=== PATIENT | male | born 1965 | race Caucasian/White ===

== ENCOUNTER 2018-01-08 04:47 | Emergency (ER) | payer OTHER, SELFPAY ==
[2018-01-08 04:48] VITALS: BP 155/74; PULSE 74; RESP 18; TEMP 37.2; O2SAT 97; BMI 42.0
--- NOTE | 2018-01-08 05:07 | CT_ITS ---
STUDY: CT ABDOMEN AND PELVIS WITHOUT CONTRAST REASON FOR EXAM: Male, 52 years old. Left flank pain for several days. RADIATION DOSAGE (If Supplied By Facility): CTDIvol = ( 20.40 ) mGy, DLP = ( 1213.23 ) mGycm TECHNIQUE: Transaxial images were obtained from the dome of the diaphragm to the symphysis pubis without oral contrast, and without intravenous contrast. Sagittal and coronal images were reconstructed. Individualized dose optimization techniques were used for this CT. COMPARISON: None. FINDINGS: The visualized lung bases are unremarkable. The heart is not enlarged. Coronary artery calcifications. There is decreased attenuation of the liver consistent with steatosis. Normal gallbladder and extrahepatic biliary system. Normal spleen. Normal pancreas. Normal bilateral adrenal glands. 4.0 cm exophytic simple cyst inferior pole right kidney. Mild left hydronephrosis with mild perinephric stranding secondary to a 3 mm x 2 mm ureterovesicular junction stone. Normal visualized stomach. Normal small intestine. Normal colon. The appendix is well visualized and appears normal. Normal abdominal aorta. Normal inferior vena cava. Normal retroperitoneum. Normal urinary bladder. Normal abdominal wall. Mild anterior wedging at multiple levels in the lower thoracic spine which is old. A fracture line is not identified. Multilevel degenerative changes of the lower thoracic and upper lumbar spine. 1.1 cm sclerotic density right iliac wing probably representing an incidental bone island. CT/Abdomen/Pelvis without Cont IMPRESSION: Mild left hydronephrosis secondary to a 3 mm ureterovesicular junction stone. Simple cyst right kidney. Coronary artery calcifications. Nonemergent osseous findings as above. Electronically Signed: Yamil Patel MD at 6:05 EDT , Service support ,
--- NOTE | 2018-01-08 05:18 | ED.DCSUM_ITS ---
- ER Visit Summary Date of Service: 01/08/18 Chief Complaint: [] Left flank and back pain History of Present Illness: The patient is a 52 M complaining of left flank pain for last 3 days gradual onset intermittent but worse throughout the night last night. He feels like a punching sensation. It does not hurt to touch. No history of kidney stones. He has been using Tylenol and Aleve. Is not movement related. No blood in his urine. Physical Examination: Vital signs reviewed General: Well-nourished well-developed Head: Normocephalic atraumatic Eyes: Pupils equal round and reactive to light extraocular movements intact ENT: TMs clear no hemotympanum no trauma Neck: Nontender full range of motion Cardiovascular: Regular rate rhythm no murmurs normal S1-S2 Respiratory: No distress clear to auscultation bilaterally chest nontender Abdomen: Soft nontender nondistended normal bowel sounds no masses Back: Nontender no CVA tenderness Extremities: Nontender active range of motion ?4 extremities no trauma Skin: Normal color no trauma Neuro alert oriented cranial nerves II through XII intact normal strength sensation reflexes Test Results: [] Emergency Department Course and Treatment: [] Patient given IV fluids and Toradol. Lab work and CAT scan of the flank obtained. Unremarkable. There is a 3 mm left UVJ kidney stone with mild hydronephrosis. Patient will be discharged with Percocet will use ibuprofen will follow-up with urology. Treatment Plan: [] Disposition: [] Impression: [] Kidney stone with mild hydronephrosis This note was generated with [employer] dictation software. It may contain incorrect words, spelling, and punctuation that were not noted in review of the chart prior to signing ED Disposition - Plan for ED Patient: Chief Complaint: Other, Pain/Inj Referrals: Celia Robbins MD [Primary Care Provider] -
[2018-01-08] MEDS: 0.9% Normal Saline 1,000 ML 250 ML IV (05:24)
[2018-01-08] MEDS: Ketorolac 30 MG/ML Syringe IV (05:24)
[2018-01-08 05:33] LABS: Bacteria 0 SEEN /hpf (None Seen); Squamous Epithelial Cells - UA 0 SEEN /hpf (0-5)
[2018-01-08 05:35] LABS: Color, Urine Yellow (Yellow); Glucose, Dipstick Normal (Normal); Ketone-Dipstick Negative (Negative); Leukocyte Esterase-Dipstick 25 /ul (Negative); Nitrite-Dipstick Negative (Negative); Occult Blood-Urine 250 /ul (Negative); Protein-Dipstick 30 mg/dl (Negative); Specific Gravity, Urine 1.025 (1.002-1.030); Urine Clarity Sl. Cloudy (Clear); Urine Urobilinogen 1 mg/dl (Normal)
[2018-01-08 05:35] LABS: Absolute Lymphocyte Count 1.62 X10^3/ul (0.83-4.51); Absolute Neutrophil Count 6.6 X10^3/uL (2.0-7.7); Basophil# 0.02 X10^3/uL; Basophil% 0.2 % (0-1); Eosinophil# 0.28 X10^3/uL; Hematocrit 41.6 % (40-54); Lymphocyte # 1.62 X10^3/ul (4.0); Lymphocyte % 17.2 % (19-41); Mean Corp Hgb Conc 36.1 g/gl (32-36); Mean Corpuscular Hgb 33.4 pg (27.0-32.0); Mean Corpuscular Volume 92.7 fL (80-94); Mean Platelet Vol. 10.2 fl (6.2-12.0); Monocyte# 0.87 X10^3/uL; Monocyte% 9.2 % (0-10); Neutrophil # 6.63 X10^3/uL (2.7-7.7); Neutrophil % 70.3 % (47-70); POSITIVE COUNT NO; POSITIVE DIFFERENTIAL NO; POSITIVE MORPHOLOGY NO; Platelet Count 180 K/mm3 (150-450); RBC Distribution Width CV 12.6 % (11.6-14.6); RBC Distribution Width SD 41.7 fl (35.1-43.9); Red Blood Count 4.49 M/mm3 (4.6-6.2); White Blood Count 9.4 K/mm3 (4.4-11.0)
[2018-01-08 05:43] LABS: Urine Bilirubin Dipstick 1 mg/dL (Negative)
[2018-01-08 05:44] LABS: Mucous, Urine 2+ /hpf (<or=2+); Red Blood Cells-Urine 0-5 SEEN /hpf (0-5); White Blood Cells 0-5 SEEN /hpf (0-5)
[2018-01-08 06:00] LABS: Anion Gap 8 (5-15); BUN 25 mg/dL (7-18); BUN/Creat Ratio 29.3 RATIO (10-20); Calcium,Total 8.8 mg/dL (8.5-10.1); Chloride 108 mmol/L (98-107); Creatinine, Serum 0.85 mg/dL (0.70-1.30); EST Glomerular Filtration Rate 100 mL/min (>60); Est Glom Filt Rate - Afr Amer 121 mL/min (>60); Estimated Creatinine Clearance 101.66 ml/min; Glucose 103 mg/dL (74-106); Potassium 3.7 mmol/L (3.5-5.1); Sodium Level 141 mmol/L (136-145)
--- NOTE | 2018-01-08 06:15 | ED.DEP ---
ED Disposition - Plan for ED Patient: Disposition: Home or Assisted Living Chief Complaint: Other, Pain/Inj Instructions: Understanding Kidney Stones Prescriptions: Oxycodone HCl/Acetaminophen [Percocet 5/325] 1 tab PO Q6H PRN PRN 3 Days #12 tab PRN Reason: Pain Referrals: Celia Robbins MD [Primary Care Provider] - Huang Rosa MD [STAFF PHYSICIAN] -
[2018-01-08 06:22] VITALS: BP 147/79; PULSE 79; RESP 17; O2SAT 95
--- NOTE | 2018-01-08 06:22 | ED.RN ---
IV DC'ED, CATHETER INTACT, SMALL GAUZE DRESSING PLACED. DISCHARGE INSTRUCTIONS GIVEN TO AND REVIEWED WITH PATIENT, PATIENT DENIES QUESTIONS OR CONCERNS AND VOICES UNDERSTANDING OF DISCHARGE INSTRUCTIONS. PT AMBULATES OUT OF ROOM WITHOUT DIFFICULTY.
== END 2018-01-08 06:23 | disposition home or self-care (01) ==
PROVIDERS: Emergency Provider Emergency Medicine; Family Provider Internal Medicine; PCP Internal Medicine
DX: N13.2 Hydronephrosis with renal and ureteral calculous obstruction (principal); E66.9 Obesity, unspecified; I10 Essential (primary) hypertension; E78.00 Pure hypercholesterolemia, unspecified; Z79.899 Other long term (current) drug therapy
CPT/HCPCS: 74176; 80048; 81001; 85025; 96361; 96374; 99283; J7030; A4216

== ENCOUNTER → 2019-06-19 | Outpatient (CLI) | payer OTHER, SELFPAY ==
--- NOTE | 2019-06-19 | FLU_PTH ---
PATIENT: ETHAN TURNER LOC: [facility] U#:[id number] AGE/SX: 54/M ROOM: RE06/19/[address]: Dr. Dinora Johnston MD : 1965 BED: DIS: 06/19/2019 SPEC #: [id number] RECD: 06/19/19 12:47 STATUS: BECKA REHolger #: [id number] BAY: 06/19/19 00:[address]: Dinora Johnston DEPT: CYTOLOGY RECD BY: Shaheed Castelan ENTERED: 06/19/19 12:48 SP TYPE: Fluid OTHR DR: Dr. Celia Robbins MD Tissues: A - Thyroid gland, NOS B - Thyroid gland, NOS Procedures: Special Stain Group II Surgery Specimen Level IV Cytospin Fluid HEADER OPERATION: Ultrasound-guided fine needle aspiration left thyroid PRE-OP DIAGNOSIS: Thyroid nodules TISSUE SUBMITTED: A - Left thyroid FNA for cytology, B - Left thyroid FNA 8 slides DIAGNOSIS CYTOLOGY A. Fine needle aspiration, left thyroid nodule (cytospin and cell block): Negative for malignant cells. Consistent with benign colloid/follicular nodule. B. Fine needle aspiration, left thyroid nodule (smears): Adequate for evaluation. Negative, consistent with benign colloid/follicular nodule. AM:juanis 06/22/19 CYTOLOGY STUDY Slides are reviewed. CYTOLOGY GROSS A - Received is 20 ml of red cloudy fluid labeled with the patient's name and and designated per the requisition as left thyroid. Submitted for cytology preparation including cell block. B - Received are eight smears labeled with the patient's name and designated per the requisition as left thyroid. Submitted for staining. / juanis 06/19/19 TC:5 CPT: 01347, 60464, 08270
== END | disposition home or self-care (01) ==
LOC: LABSPEC 12:37
PROVIDERS: Family Provider Internal Medicine; PCP Internal Medicine; Referring Provider Surgery; Visit Provider Surgery
DX: E04.1 Nontoxic single thyroid nodule (principal)
CPT/HCPCS: 88108; 88305; 88313

== ENCOUNTER 2019-12-13 16:06 | Emergency (ER) | payer OTHER, SELFPAY ==
[2019-12-13 16:07] VITALS: BP 158/108; PULSE 97; RESP 16; TEMP 36.8; O2SAT 94; BMI 43.1
--- NOTE | 2019-12-13 16:14 | ED.VIS.GEN ---
History of Present Illness Chief Complaint: Cough Informant: Patient Onset: Days Context: Gradual Onset Current Severity: Mild Maximum Severity: Mild Narrative: Patient presents with cough and subjective fevers over the past 5 or 6 days. He called off work today and [facility] so he could get a work note. They were concerned there about possible pneumonia and sent him to the ER for a chest x-ray. Patient states they also told him there that he had a left ear infection. Patient states overall he does not feel too bad. He did get the flu shot this year. - Past Medical History (1) Hypertension Status: Chronic (2) High cholesterol Status: Chronic Past Medical History - Allergies and Home Meds Allergies/Adverse Reactions: Allergies No Known Allergies Allergy (Verified 12/13/19 16:07) Primary Care Physician: Celia Robbins MD [Primary Care Provider] - Prior records reviewed: Yes Smoking Status: Former smoker Review of Systems General: Reports: Fever, Subjective Eyes: Denies: Visual changes - bilaterally ENT: Reports: - - Congestion Cardiovascular: Denies: Chest pain Respiratory: Reports: Cough. Denies: Dyspnea Gastrointestinal: Denies: Abdominal pain, Nausea, Vomiting, Diarrhea Genitourinary: Denies: Dysuria Musculoskeletal: Denies: Myalgias Skin: Denies: Rash Neurological: Denies: Headache Allergy: Denies: Uticaria Physical Exam Vital Signs/Narrative: Vital Signs Temp Pulse Resp BP Pulse Ox 12/13/19 16:07 98.2 F 97 16 158/108 H 94 Inital Vital Signs reviewed: Yes General: Well nourished, Well developed Head: Normocephalic ENT: Moist mucous membranes, TM's clear - Left TM has some mild clear fluid. I do not see evidence of ear infection., - - Posterior pharyngeal drainage. Uvula midline. Neck: Supple Cardiovascular: Regular rate, Regular rhythm Respiratory: No distress, CTA bilaterally Abdomen: Soft, Nontender Extremities: Nontender Skin: Normal color Neurological: Alert, Oriented x3 Psychological: Normal affect Diagnostic/Tx/Re-eval Impressions Chest X-Ray 12/13/19 16:30 IMPRESSION: No acute cardiopulmonary findings Electronically Signed: Supa Gates, at 17:25 EST Tel , Service support , 12/13/19 16:30 Chest PA and Lateral [RAD] Stat - Medical Decision Making Patient symptoms are consistent with viral upper respiratory infection. He may have influenza, however is outside the window for treatment and testing is not performed at this time. Clinically patient states he is feeling better. He will be given a work note for today. He will continue supportive care. ED Disposition - Plan for ED Patient: Disposition: Home or Assisted Living Diagnosis: Viral URI Instructions: BRONCHITIS, No Antibiotic (Adult) Referrals: Celia Robbins MD [Primary Care Provider] - 1 Week if not improving
--- NOTE | 2019-12-13 16:30 | RAD_ITS ---
STUDY: X-RAY CHEST REASON FOR EXAM: Male, 54 years old. Chest pain TECHNIQUE: PA and lateral views of the chest. COMPARISON: None. FINDINGS: Cardiac silhouette unremarkable. Pulmonary vascularity unremarkable. Aorta unremarkable. No focal airspace opacities. No pleural effusions. Upper abdomen unremarkable. Osseous structures intact. No pneumothorax. RAD/Chest PA and Lateral IMPRESSION: No acute cardiopulmonary findings Electronically Signed: Supa Gates, at 17:25 EST Tel , Service support ,
[2019-12-13 17:43] VITALS: BP 144/88; PULSE 89; RESP 18; O2SAT 96
== END 2019-12-13 17:44 | disposition home or self-care (01) ==
PROVIDERS: Emergency Provider Emergency Medicine; PCP Internal Medicine
DX: J06.9 Acute upper respiratory infection, unspecified (principal); I10 Essential (primary) hypertension; Z87.891 Personal history of nicotine dependence
CPT/HCPCS: 71046; 99282

== ENCOUNTER → 2020-09-19 | Outpatient (CLI) | payer OTHER, SELFPAY ==
--- NOTE | 2020-09-19 | FLU_PTH ---
PATIENT: ETHAN TURNER LOC: [facility] U#:[id number] AGE/SX: 55/M ROOM: RE09/19/[address]: Dr. Dinora Johnston MD : 1965 BED: DIS: 09/19/2020 SPEC #: [id number] RECD: 09/19/20 17:04 STATUS: BECKA REHolger #: [id number] BAY: 09/19/20 00:[address]: Dinora Johnston DEPT: CYTOLOGY RECD BY: Carly Pedro ENTERED: 09/20/20 08:20 SP TYPE: Fluid OTHR DR: Dr. Celia Robbins MD Tissues: A - Thyroid gland, NOS B - Thyroid gland, NOS Procedures: Special Stain Group II Surgery Specimen Level IV Cytospin Fluid HEADER OPERATION: Ultrasound-guided fine needle aspiration left thyroid PRE-OP DIAGNOSIS: Thyroid nodules TISSUE SUBMITTED: A - Left thyroid for cytology, B - Left thyroid slides x6 DIAGNOSIS CYTOLOGY A. Fine needle aspiration, left thyroid nodule (cytospin and cell block): Adequate for evaluation. Negative, consistent with benign follicular/colloid nodule. B. Fine needle aspiration, left thyroid nodule (smears): Adequate for evaluation. Negative, consistent with benign colloid nodule with cystic change. AM:juanis 09/21/20 CYTOLOGY STUDY Slides are reviewed. CYTOLOGY GROSS A - Received is 30 ml of castro, cloudy fluid labeled with the patient's name and and designated per the requisition as left thyroid. Submitted for cytology preparation including cell block. B - Received are six smears labeled with the patient's name and designated per the requisition as left thyroid. Submitted for staining. / juanis 09/20/20 TC:5 CPT: 48656, 42589, 86069
== END | disposition home or self-care (01) ==
PROVIDERS: PCP Internal Medicine; Visit Provider Surgery
DX: E04.2 Nontoxic multinodular goiter (principal)
CPT/HCPCS: 88108; 88305; 88313

== ENCOUNTER → 2024-02-14 | Outpatient (CLI) | payer BC, SELFPAY ==
[2024-02-14] MEDS: Lidocaine 2% (5ml sdv) 5 ML VIAL.MPF (07:56)
[2024-02-14] MEDS: Triamcinolone Acetonide 40 MG/ML Vial 80 MG OPERA.SITE (07:58)
[2024-02-14] MEDS: Lidocaine 1% (5 ml sdv) 5 ML Vial 3 ML OPERA.SITE (07:58)
--- NOTE | 2024-02-14 08:17 | PCM.OP.PRO ---
Procedure Report Date of Procedure: 02/14/24 Assessment & Plan Assessment/Plan (1) Osteoarthritis of right hip: QUALIFIERS: Osteoarthritis type: unspecified Qualified Code(s): M16.11 - Unilateral primary osteoarthritis, right hip PLAN: PROCEDURE: Fluoroscopic Guided right hip injection ORDERING PROVIDER: Gilda Rutherford PA-C INDICATION: Male, 58 years old. Right hip osteoarthritis. FLUOROSCOPY TIME (if supplied): 0 minutes/50 seconds. 23.19 mGy PROVIDER: MIRI Luke PROCEDURE: CONSENT: The risks, benefits, and alternatives to the procedure were explained to the patient. The specific risks of bleeding, infection, and neurovascular injury were detailed and accepted. Witnessed informed consent was obtained. TECHNIQUE: The right hip access site was prepped and draped in sterile fashion. 2% Lidocaine was administered subcutaneously for local anesthesia. A 22-gauge spinal needle was positioned under radiographic fluoroscopic localization. Approximately 2 cc of Isovue 300 instilled for localization purposes. Medication was then injected. MEDICATIONS: 80 mg of Kenalog and 3 ml of 1% lidocaine. The spinal needle was removed, and a dressing was applied. The patient tolerated the procedure well without any immediate complications. IMPRESSION: Successful fluoroscopic guided right hip injection. Procedures Radiology Radiology Xray Procedures: Inj Asp major Joint - Hip, Knee
== END | disposition home or self-care (01) ==
PROVIDERS: PCP Internal Medicine; Referring Provider Physician Assistant; Visit Provider Physician Assistant
DX: M16.11 Unilateral primary osteoarthritis, right hip (principal)
CPT/HCPCS: 20610; 77002

== ENCOUNTER → 2024-06-01 | Outpatient (CLI) | payer BC, SELFPAY ==
--- NOTE | 2024-06-01 10:05 | RAD_ITS ---
STUDY: X-RAY - PELVIS REASON FOR EXAM: Male, 59 years old. Pain. TECHNIQUE: One view of the pelvis was obtained. COMPARISON: None. FINDINGS: There is a non-specific bowel gas pattern. Soft tissue calcification projected proximal to the right greater trochanter. Osteopenia. Normal bilateral iliac wings, sacroiliac joints and visualized sacrum. Normal visualized bilateral superior and inferior pubic rami. Mild arthrosis of the symphysis pubis. Normal ischial tuberosities. Severe arthrosis of both hips, left greater than right with complete loss of articular cartilage superiorly with subchondral cyst formation and sclerosis. RAD/Pelvis 1 or 2 Views IMPRESSION: Osteopenia with severe osteoarthritic changes of both hips, left slightly greater than right, as outlined above. Soft tissue calcification projected proximal to the greater trochanter on the right. Electronically Signed: King Dominguez MD at 10:17 EDT ,
[2024-06-01 12:34] LABS: Absolute Lymphocyte Count 1.69 X10^3/uL (0.83-4.51); Absolute Neutrophil Count 5.4 X10^3/uL (2.0-7.7); Basophil# 0.05 X10^3/uL; Basophil% 0.6 % (0-1); Eosinophil# 0.09 X10^3/uL; Eosinophils% 1.1 % (0-5); Hematocrit 44.7 % (40-54); Hemoglobin 15.3 g/dL (13.0-16.5); Lymphocyte # 1.69 X10^3/ul (0.83-4.51); Lymphocyte % 21.5 % (19-41); Mean Corp Hgb Conc 34.2 g/dL (32-36); Mean Corpuscular Hgb 32.9 pg (27.0-32.0); Mean Corpuscular Volume 96.1 fL (80-94); Mean Platelet Vol. 10.6 fl (6.2-12.0); Monocyte% 7.6 % (0-10); NRBC Flagged by Analyzer 0 % (0-5); Neutrophil # 5.41 X10^3/uL (2.7-7.7); Neutrophil % 68.8 % (47-70); Platelet Count 222 K/mm3 (150-450); RBC Distribution Width CV 12.4 % (11.6-14.6); Red Blood Count 4.65 M/mm3 (4.6-6.2); White Blood Count 7.9 K/mm3 (4.4-11.0)
[2024-06-01 13:40] LABS: ALB/GLOB Ratio 1.2 RATIO (0.9-2.4); AST(SGOT) 13 U/L (15-37); Alanine Aminotransfer ALT/SGPT 26 U/L (16-61); Albumin, Serum 4.1 g/dL (3.2-5.0); Alkaline Phosphatase 69 U/L (45-117); Anion Gap 9 (5-15); BUN 29 mg/dL (7-18); Calcium,Total 9.8 mg/dL (8.5-10.1); Chloride 111 mmol/L (98-107); EST Glomerular Filtration Rate 104 mL/min (>60); Est Glom Filt Rate - Afr Amer 126 mL/min (>60); Globulin 3.5 g/dL (2.2-4.2); Glucose 99 mg/dL (74-106); Hepatitis B Surface Antibody Non-Reactive; Hepatitis B Surface Antigen Non-Reactive (Nonreactive); Hepatitis C Antibody Non-Reactive (Nonreactive); Potassium 4.2 mmol/L (3.5-5.1); Protein, Total 7.6 g/dL (6.4-8.2); Rheumatoid Factor < 10.0 IU/mL (<15); Sodium Level 141 mmol/L (136-145)
[2024-06-02 13:08] LABS: ANTINUCLEAR ANTIBODIES DIRECT Negative (Negative); CCP IgG Antibodies 3 units (0-19)
== END | disposition home or self-care (01) ==
LOC: MTLAB 10:03
PROVIDERS: PCP Internal Medicine; Referring Provider Internal Medicine Rheumatology; Visit Provider Internal Medicine Rheumatology
DX: M06.4 Inflammatory polyarthropathy (principal); M17.0 Bilateral primary osteoarthritis of knee; M16.0 Bilateral primary osteoarthritis of hip
CPT/HCPCS: 36415; 72170; 80053; 85025; 86038; 86200; 86431; 86706; 86803; 87340

== ENCOUNTER → 2024-08-07 | Outpatient (CLI) | payer BC, SELFPAY ==
[2024-08-07 12:27] LABS: Absolute Lymphocyte Count 1.21 X10^3/uL (0.83-4.51); Basophil# 0.03 X10^3/uL; Basophil% 0.3 % (0-1); Eosinophil# 0.02 X10^3/uL; Eosinophils% 0.2 % (0-5); Hematocrit 43.5 % (40-54); Hemoglobin 15.4 g/dL (13.0-16.5); Lymphocyte # 1.21 X10^3/ul (0.83-4.51); Lymphocyte % 13.9 % (19-41); Mean Corp Hgb Conc 35.4 g/dL (32-36); Monocyte# 0.41 X10^3/uL; Monocyte% 4.7 % (0-10); NRBC Flagged by Analyzer 0 % (0-5); Neutrophil # 6.98 X10^3/uL (2.7-7.7); Neutrophil % 80.3 % (47-70); Platelet Count 219 K/mm3 (150-450); RBC Distribution Width CV 13.5 % (11.6-14.6); RBC Distribution Width SD 46.5 fl (35.1-43.9); Red Blood Count 4.53 M/mm3 (4.6-6.2); White Blood Count 8.7 K/mm3 (4.4-11.0)
[2024-08-07 13:25] LABS: ALB/GLOB Ratio 1.2 RATIO (0.9-2.4); AST(SGOT) 9 U/L (15-37); Alanine Aminotransfer ALT/SGPT 23 U/L (16-61); Alkaline Phosphatase 66 U/L (45-117); Anion Gap 8 (5-15); BUN 28 mg/dL (7-18); BUN/Creat Ratio 31.1 RATIO (10-20); Calcium,Total 9.2 mg/dL (8.5-10.1); Chloride 108 mmol/L (98-107); EST Glomerular Filtration Rate 92 mL/min (>60); Est Glom Filt Rate - Afr Amer 111 mL/min (>60); Globulin 3.2 g/dL (2.2-4.2); Glucose 111 mg/dL (74-106); Protein, Total 7.2 g/dL (6.4-8.2); Sodium Level 138 mmol/L (136-145)
== END | disposition home or self-care (01) ==
LOC: MTLAB 09:56
PROVIDERS: PCP Internal Medicine; Referring Provider Internal Medicine Rheumatology; Visit Provider Internal Medicine Rheumatology
DX: M06.4 Inflammatory polyarthropathy (principal); M17.0 Bilateral primary osteoarthritis of knee; M16.0 Bilateral primary osteoarthritis of hip; Z79.899 Other long term (current) drug therapy
CPT/HCPCS: 36415; 80053; 85025

== ENCOUNTER → 2024-09-15 | Outpatient (CLI) | payer BC, SELFPAY ==
[2024-09-15 18:02] LABS: Absolute Lymphocyte Count 2.79 X10^3/uL (0.83-4.51); Absolute Neutrophil Count 5.6 X10^3/uL (2.0-7.7); Basophil# 0.06 X10^3/uL; Basophil% 0.6 % (0-1); Eosinophil# 0.07 X10^3/uL; Eosinophils% 0.8 % (0-5); Hematocrit 42.8 % (40-54); Hemoglobin 14.7 g/dL (13.0-16.5); Lymphocyte # 2.79 X10^3/ul (0.83-4.51); Lymphocyte % 30.1 % (19-41); Mean Corp Hgb Conc 34.3 g/dL (32-36); Mean Corpuscular Hgb 33.6 pg (27.0-32.0); Mean Corpuscular Volume 97.7 fL (80-94); Mean Platelet Vol. 9.8 fl (6.2-12.0); Monocyte# 0.71 X10^3/uL; Monocyte% 7.7 % (0-10); NRBC Flagged by Analyzer 0 % (0-5); Neutrophil # 5.61 X10^3/uL (2.7-7.7); Neutrophil % 60.5 % (47-70); Platelet Count 243 K/mm3 (150-450); RBC Distribution Width CV 13.6 % (11.6-14.6); RBC Distribution Width SD 49.2 fl (35.1-43.9); Red Blood Count 4.38 M/mm3 (4.6-6.2); White Blood Count 9.3 K/mm3 (4.4-11.0)
[2024-09-15 18:22] LABS: ALB/GLOB Ratio 1.2 RATIO (0.9-2.4); AST(SGOT) 12 U/L (15-37); Alanine Aminotransfer ALT/SGPT 22 U/L (16-61); Alkaline Phosphatase 70 U/L (45-117); Anion Gap 9 (5-15); BUN 32 mg/dL (7-18); Calcium,Total 9.4 mg/dL (8.5-10.1); Chloride 105 mmol/L (98-107); Creatinine, Serum 0.73 mg/dL (0.70-1.30); EST Glomerular Filtration Rate 117 mL/min (>60); Est Glom Filt Rate - Afr Amer 142 mL/min (>60); Globulin 3.3 g/dL (2.2-4.2); Glucose 89 mg/dL (74-106); Potassium 3.8 mmol/L (3.5-5.1); Protein, Total 7.3 g/dL (6.4-8.2); Sodium Level 137 mmol/L (136-145)
== END | disposition home or self-care (01) ==
LOC: MTLAB 16:02
PROVIDERS: PCP Internal Medicine; Referring Provider Internal Medicine Rheumatology; Visit Provider Internal Medicine Rheumatology
DX: M06.4 Inflammatory polyarthropathy (principal); Z79.899 Other long term (current) drug therapy
CPT/HCPCS: 36415; 80053; 85025

== ENCOUNTER → 2024-11-11 | Outpatient (CLI) | payer BC, SELFPAY ==
[2024-11-11 18:05] LABS: Absolute Lymphocyte Count 2.69 X10^3/uL (0.83-4.51); Absolute Neutrophil Count 5.2 X10^3/uL (2.0-7.7); Basophil# 0.03 X10^3/uL; Basophil% 0.3 % (0-1); Eosinophil# 0.06 X10^3/uL; Eosinophils% 0.7 % (0-5); Hematocrit 45.7 % (40-54); Hemoglobin 15.5 g/dL (13.0-16.5); Lymphocyte # 2.69 X10^3/ul (0.83-4.51); Lymphocyte % 31.2 % (19-41); Mean Corp Hgb Conc 33.9 g/dL (32-36); Mean Corpuscular Hgb 33.8 pg (27.0-32.0); Mean Corpuscular Volume 99.6 fL (80-94); Mean Platelet Vol. 10.3 fl (6.2-12.0); Monocyte# 0.63 X10^3/uL; Monocyte% 7.3 % (0-10); NRBC Flagged by Analyzer 0 % (0-5); Neutrophil # 5.18 X10^3/uL (2.7-7.7); Neutrophil % 60.3 % (47-70); Platelet Count 249 K/mm3 (150-450); RBC Distribution Width CV 12.5 % (11.6-14.6); RBC Distribution Width SD 46.2 fl (35.1-43.9); Red Blood Count 4.59 M/mm3 (4.6-6.2); White Blood Count 8.6 K/mm3 (4.4-11.0)
[2024-11-11 19:57] LABS: ALB/GLOB Ratio 1.3 RATIO (0.9-2.4); AST(SGOT) 12 U/L (15-37); Alanine Aminotransfer ALT/SGPT 29 U/L (16-61); Albumin, Serum 4.3 g/dL (3.2-5.0); Alkaline Phosphatase 69 U/L (45-117); Anion Gap 9 (5-15); BUN 28 mg/dL (7-18); BUN/Creat Ratio 33.2 RATIO (10-20); Calcium,Total 9.5 mg/dL (8.5-10.1); Chloride 104 mmol/L (98-107); Creatinine, Serum 0.84 mg/dL (0.70-1.30); EST Glomerular Filtration Rate 99 mL/min (>60); Est Glom Filt Rate - Afr Amer 120 mL/min (>60); Globulin 3.3 g/dL (2.2-4.2); Glucose 85 mg/dL (74-106); Protein, Total 7.6 g/dL (6.4-8.2); Sodium Level 137 mmol/L (136-145)
== END | disposition home or self-care (01) ==
LOC: MTLAB 16:03
PROVIDERS: PCP Internal Medicine; Referring Provider Internal Medicine Rheumatology; Visit Provider Internal Medicine Rheumatology
DX: M06.4 Inflammatory polyarthropathy (principal); M17.0 Bilateral primary osteoarthritis of knee; M16.0 Bilateral primary osteoarthritis of hip; Z79.899 Other long term (current) drug therapy
CPT/HCPCS: 36415; 80053; 85025

== ENCOUNTER → 2024-12-11 | Outpatient (CLI) | payer BC, SELFPAY ==
--- NOTE | 2024-12-11 16:26 | CT_ITS ---
PROCEDURE: EXTREMITY LOWER WITHOUT CONTRA REASON FOR EXAM: Templating for left total hip replacement. Sam protocol TECHNIQUE: Multiple axial tomographic images of the hips and both knees were obtained without intravenous contrast administration. CONTRAST: None COMPARISON: None. FINDINGS: Bones: No evidence of fracture. Joints: Imaging of both hip joints was obtained. There is a marked degree of joint space narrowing of the left hip joint with subchondral cystic changes involving the acetabulum and femoral head. Findings may represent avascular necrosis. There is also evidence of a marked degree of joint space narrowing of the right hip joint although no significant evidence of avascular necrosis. Marked degree of joint space narrowing involving both medial compartments of the knee joint. Osteoarthritis of the patellofemoral joint. Soft Tissues: Unremarkable. CT/Extremity Lower without Contra IMPRESSION: Marked degree of joint space narrowing involving both hip joints worse on the l eft side with findings suggestive of avascular necrosis. Marked degree of joint space narrowing involving the medial compartments of bot h knee joints. One or more dose reduction techniques were used (e.g., Automated exposure contr ol, adjustment of the mA and/or kV according to patient size, use of iterative reconstruction technique). Reading Location: [facility]
== END | disposition home or self-care (01) ==
LOC: CT 16:24
PROVIDERS: PCP Internal Medicine; Referring Provider Orthopaedic Surgery; Visit Provider Orthopaedic Surgery
DX: M16.12 Unilateral primary osteoarthritis, left hip (principal)
CPT/HCPCS: 73700

== ENCOUNTER 2024-12-29 05:06 | Day surgery (SDC) | payer BC, SELFPAY ==
--- NOTE | 2024-12-21 07:37 | EKG12_ITS ---
Test Reason : PREOP Blood Pressure : */* mmHG Vent. Rate : 70 BPM Atrial Rate : 70 BPM P-R Int : 178 ms QRS Dur : 86 ms QT Int : 344 ms P-R-T Axes : 50 61 68 degrees QTcB Int : 371 ms Normal sinus rhythm Normal ECG Confirmed by Jose Luis Long ([id number]), scientific publications editor VALORIE YU ([id number]) on 12/21/2024 11:05:19 AM Referred By: Too Latham Confirmed By: Jose Luis Long
[2024-12-21 08:33] LABS: Prothrombin Time (Protime)PT. 12.8 SECONDS (11.7-14.9)
[2024-12-21 08:34] LABS: Partial Thromboplast Time 27.6 Seconds (24.1-36.2)
[2024-12-21 08:42] LABS: Hemoglobin A1c 5.2 % (<=5.6)
[2024-12-21 09:07] LABS: Magnesium 2.2 mg/dL (1.5-2.2)
[2024-12-22 05:07] LABS: Fructosamine 211 umol/L (0-285)
[2024-12-29] VITALS (11 sets, daily range): BP systolic 124–152; BP diastolic 75–95; PULSE 65–85; RESP 14–20; TEMP 36.2–36.9; O2SAT 94–99; BMI 37.5
[2024-12-29] MEDS: Celecoxib 200 MG Capsule 400 MG PO (06:11)
[2024-12-29] MEDS: Acetaminophen 500 MG Tablet 1000 MG PO ×2 (06:11→13:30)
[2024-12-29] MEDS: Scopolamine 1mg/72hr Patch 1 PATCH TD (06:12)
[2024-12-29] MEDS: Gabapentin 600 MG Tablet PO (06:12)
[2024-12-29] MEDS: Lactated Ringers 1,000 ML 999 ML IV (06:21)
[2024-12-29] MEDS: Magnesium 1 GM over 15 mins IV (06:22)
[2024-12-29] MEDS: Lactated Ringers 1,000 ML 100 ML IV (06:25)
[2024-12-29 06:26] LABS: Bedside Glucose 82 mg/dL (74-106)
--- NOTE | 2024-12-29 06:46 | PCM.PRE.AN2 ---
ASA Classification* ASA Classification ASA Classification: 2 (Patient significant risk for obstruction when sedated post spinal. Otherwise, has HTN, GERD, RA. Please keep spine neutral when asleep due to RA) Assessment & Plan Anesthesia* Anesthesia Assessment Anesthesia Assessment: Discussed sedation and/or anesthesia options, risks, benefits, and alternatives with patient/parents/legal guardian/POA. Questions invited. The patient/parents/legal guardian/POA seems to understand and agrees to proceed with anesthesia plan. Reviewed the physical assessment, medical history, allergy history and patient home medications list prior to surgery/procedure/anesthetic and documented any changes. Performed airway and anesthesia risk assessments. Anesthesia Type Anesthesia Type: Spinal History Source History Obtained from:: Patient and Chart Anesthesia Focused Assessment* Temperature: 97.9 F Pulse Rate: 84 Blood Pressure: 136/80 Respiratory Rate: 16 Pulse Ox: 95 Oxygen Delivery Method: Room Air Airway Assessment Mouth opens: >3 cm Mallampati Score: III Teeth Condition: Intact and Missing (top right) Neck Range of motion (ROM): Full ROM Focused Labs Anesthesia Preop lab: CBC WBC 8.6 K/mm3 (4.4-11.0) 11/11/24 16:07 11/11/24 RBC 4.59 M/mm3 (4.6-6.2) L 11/11/24 16:07 11/11/24 Hgb 15.5 g/dL (13.0-16.5) 11/11/24 16:07 11/11/24 Hct 45.7 % (40-54) 11/11/24 16:07 11/11/24 Plt Count 249 K/mm3 (150-450) 11/11/24 16:07 11/11/24 CHEMISTRY Potassium 4.0 mmol/L (3.5-5.1) 11/11/24 16:07 11/11/24 Sodium 137 mmol/L (136-145) 11/11/24 16:07 11/11/24 Magnesium 2.2 mg/dL (1.5-2.2) 12/21/24 07:55 12/21/24 BUN 28 mg/dL (7-18) H 11/11/24 16:07 11/11/24 Creatinine 0.84 mg/dL (0.70-1.30) 11/11/24 16:07 11/11/24 Glucose 85 mg/dL (74-106) 11/11/24 16:07 11/11/24 POC Glucose 82 mg/dL (74-106) 12/29/24 05:53 12/29/24 COAG PT 12.8 SECONDS (11.7-14.9) 12/21/24 07:55 12/21/24 Pre-Assessment Diagnosis/Proposed Procedure Planned Operative Procedure(s): LEFT TOTAL HIP ARTHROPLASTY ROBOTIC ASSISITED Anesthesia History Anesthesia History - supervisor slashing department: Anesthesia History - supervisor slashing department Hx Hospitalization No 12/15/24 14:01 Any Problems With Anesthesia No 12/15/24 14:01 Cholinesterase deficiency No 12/15/24 14:01 You/Your Family Experience No 12/15/24 14:01 fever (hyperthermia) with Relationship Recent Exposure to Contagious No 12/29/24 05:57 Disease Does patient have nerve No 12/15/24 14:01 stimulator Patient instructed to have device shut off --Does patient have Pacemaker No 12/29/24 06:05 or ICD? When Was Last Pacemaker Check QUESTION #4 FULL TEXT: You/Your Family Experience fever (hyperthermia) with Anesthesia Last Oral Intake Last Oral intake: Last Oral Intake NPO since 03:30 12/29/24 06:05 Meds taken in AM with sips of Yes 12/29/24 06:05 water? Meds patient instructed to take am of surgery PONV PONV - supervisor slashing department: PONV - supervisor slashing department Female No 12/15/24 14:01 HX of Motion Sickness No 12/15/24 14:01 HX of N/V After Surgery No 12/15/24 14:01 Non-Smoker Yes 12/15/24 14:01 Duration of Surgery greater Yes 12/15/24 14:01 than 60 minutes Number of Risk Factors 2 12/15/24 14:01 PONV Score Moderate Risk 12/15/24 14:01 Height & Weight Height & Weight: Anesthesia: Height & Weight Height 5 ft 9 in 12/29/24 06:05 Weight: 115.212 kg 12/29/24 06:05 Body Mass Index (BMI) 37.5 12/29/24 06:05 Respiratory Assessment Respiratory Assessment - supervisor slashing department: Respiratory Tract Infection Hx - supervisor slashing department Hx Respiratory Tract Infection No 12/15/24 14:01 STOP Sleep Apnea STOP Sleep Apnea - supervisor slashing department: STOP Sleep Apnea - supervisor slashing department Hx Hypertension Yes: CONTROLLED WITH MEDS 12/15/24 14:01 Hx Sleep Apnea No 12/15/24 14:01 CPAP BIPAP Do you snore loudly (louder Yes 12/15/24 14:01 than talking or can be heard Do you often feel tired/ No 12/15/24 14:01 fatigued/ sleepy during daytime? Has anyone observed you stop Yes 12/15/24 14:01 breathing during sleep? STOP Results Positive 12/15/24 14:01 QUESTION #5 FULL TEXT : Do you snore loudly (louder than talking or can be heard through closed doors)? Tobacco Use History Tobacco Use History - supervisor slashing department: Tobacco Use History - supervisor slashing department Tobacco Use Smoking Status Former smoker 12/15/24 14:01 Hx Tobacco Use No 12/15/24 14:01 Years Smoking Packs Smoked per Day Smoking Cessation Date was No - quit smoking greater 12/15/24 14:01 within the last 15 years than 15 years ago Hx Smoking Cessation Date Hx Smoking Cessation Counseling Hematologic Medial History Hematologic Hx - supervisor slashing department: Hematologic Medical Hx - documentation spec Hx of Blood Transfusion No 12/15/24 14:01 Hx of Transfusion in last 3 No 12/15/24 14:01 Months Date of Last Transfusion (if within last 3 months) Ever experience any problems No 12/15/24 14:01 with transfusion(s)? Specify any problems Hx of Preganancy in last 3 N/A 12/15/24 14:01 Months Nurse Filling Out Transfusion [id number] 12/15/24 14:01 & Questions: Date: 12/15/24 12/15/24 14:01 Time: 14:06 12/15/24 14:01 Patient unable to answer at this time (ie. confused, unrespo /Reproduction History /Reproductive History - supervisor slashing department: /Reproductive Hx- supervisor slashing department Hx Now Gestational Age (in weeks): EDC: Hx Hx Para Hx Section SAB Active Medications Active Medications: Current Medications Generic Name Dose Route Start Last Admin Trade Name Freq PRN Reason Stop Dose Admin Acetaminophen 1,000 mg 12/29/24 07:30 12/29/24 06:11 Acetaminophen 500 Mg Tablet PO 12/29/24 07:31 1,000 mg X1 ONE Administration Celecoxib 400 mg 12/29/24 07:30 12/29/24 06:11 Celecoxib 200 Mg Capsule PO 12/29/24 07:31 400 mg X1 ONE Administration Dexamethasone Sodium Phosphate 10 mg 12/29/24 07:30 Dexamethasone 10 Mg/Ml Vial IV 12/29/24 07:31 X1 ONE Gabapentin 600 mg 12/29/24 07:30 12/29/24 06:12 Gabapentin 600 Mg Tablet PO 12/29/24 07:31 600 mg X1 ONE Administration Lactated Ringer's 1,000 mls @ 999 mls/hr 12/29/24 07:30 12/29/24 06:21 IV 12/29/24 08:30 999 mls/hr .Q1H1M STEVEN Administration Cefazolin Sodium 3 gm/ N/A 30 mls @ 600 mls/hr 12/29/24 07:30 IV 12/29/24 07:32 PREOP ONE Tranexamic Acid 2,000 mg/ 120 mls @ 660 mls/hr 12/29/24 07:30 Sodium Chloride IV 12/29/24 07:40 X1 ONE Lactated Ringer's 1,000 mls @ 125 mls/hr 12/29/24 07:30 IV 12/29/24 15:29 .Q8H STEVEN Magnesium Sulfate 1 gm/ 102 mls @ 408 mls/hr 12/29/24 07:30 12/29/24 06:22 Dextrose IV 12/29/24 07:44 408 mls/hr X1 ONE Administration Lactated Ringer's 1,000 mls @ 100 mls/hr 12/29/24 06:30 12/29/24 06:25 IV 100 mls/hr .Q10H STEVEN Administration Insulin Human Lispro 1 - 6 unit 12/29/24 07:30 Insulin Lispro 100 Unit/Ml Insuln.Pen SC 12/29/24 18:00 Q4H PRN PRN BG>/= 180, SEE PROTOCOL Protocol Scopolamine HBr 1 patch 12/29/24 07:30 12/29/24 06:12 Scopolamine 1mg/72hr Patch TD 12/29/24 07:31 1 patch X1 ONE Administration PFSH Medical History Wears glasses Colonoscopy planned Gastric reflux History of stress test Former smoker Home Medications ?Medication ?Instructions ?Recorded ?Last Taken ?Type fish oil-dha-epa 1,200 mg-144 1 ea PO DAILY 01/08/18 12/22/24 History mg-216 mg capsule gemfibrozil 600 mg tablet 600 mg PO BIDAC 01/08/18 12/28/24 19:00 History cholecalciferol (vitamin D3) 50 50 mcg PO QDAY 07/27/24 12/22/24 History mcg (2,000 unit) capsule etodolac 400 mg tablet 400 mg PO BID 07/27/24 12/22/24 History folic acid 1 mg tablet 1 mg PO QDAY 07/27/24 12/22/24 History leucovorin calcium 15 mg tablet 15 mg PO DAILY 07/27/24 Unknown History methotrexate sodium 2.5 mg tablet 20 mg PO SA 07/27/24 12/12/24 History omeprazole 40 mg capsule,delayed 40 mg PO QDAY 07/27/24 12/29/24 03:30 History release valsartan 320 1 tab PO QDAY 07/27/24 12/29/24 03:30 History mg-hydrochlorothiazide 25 mg tablet tramadol 50 mg tablet 50 mg PO Q12H PRN pain 11/04/24 12/22/24 History prednisone 5 mg tablet 5 mg PO QAM 12/16/24 12/22/24 History Allergy/AdvReac Type Severity Reaction Status Date / Time No Known Allergies Allergy Verified 12/29/24 05:55 Family History Mother Heart disease Diabetes Father Heart disease Social History household members: spouse Smoking Status: Former smoker alcohol intake: current alcohol intake frequency: holidays/special occasions only Review of Systems (Anesthesia) ROS Narrative System reviewed and no additional complaints, except as documented. Physical Exam Const alert, oriented x3 and average body habitus Resp normal respiratory effort, normal air movement and clear to auscultation bilaterally Cardio regular rate, regular rhythm, no murmurs and diaphoretic
--- NOTE | 2024-12-29 07:25 | PCM.HP.BLA ---
History and Physical Date of Admission: 12/29/24 [facility] [address] [place] [address] OFFICE VISIT Date of Service: 11/04/24 MR#: [id number] Acct: [id number] Name: ETHAN TURNER Rep #: [id number] : 1965 Provider: Dr. Too Latham DO Age/Sex: 59/M Location: [facility] Status: Signed Intake Vital Signs 07/27/2408:18 11/04/2514:56 Height 5 ft 9 in 5 ft 9.5 in Weight: 272 lb 8 oz 265 lb 6 oz BMI 40.2 38.6 Intake Visit Reasons: BILATERAL KNEES Allergies No Known Allergies Allergy (Verified 11/04/24 16:03) Medications ?Medication ?Instructions ?Recorded ?Confirmed ?Type fish oil-dha-epa 1,200 mg-144 1 ea PO DAILY 01/08/18 11/04/24 History mg-216 mg capsule gemfibrozil 600 mg tablet 600 mg PO BIDAC 01/08/18 11/04/24 History cholecalciferol (vitamin D3) 50 50 mcg PO QDAY 07/27/24 11/04/24 History mcg (2,000 unit) capsule etodolac 400 mg tablet 400 mg PO BID 07/27/24 11/04/24 History folic acid 1 mg tablet 1 mg PO QDAY 07/27/24 11/04/24 History leucovorin calcium 15 mg tablet mg PO 07/27/24 11/04/24 History methotrexate sodium 2.5 mg tablet 2.5 mg PO 07/27/24 11/04/24 History omeprazole 40 mg capsule,delayed 40 mg PO QDAY 07/27/24 11/04/24 History release valsartan 320 1 tab PO QDAY 07/27/24 11/04/24 History mg-hydrochlorothiazide 25 mg tablet tramadol 50 mg tablet mg PO 11/04/24 11/04/24 History PFSH Family History (Updated 07/27/24 @ 08:23 by Alisson Capone MA) Mother Heart disease DiabetesFather Heart disease Social History (Updated 07/27/24 @ 08:23 by Alisson Capone MA) household members: spouse Smoking Status: Former smoker alcohol intake: current alcohol intake frequency: holidays/special occasions only HPI BILATERAL KNEES Details: This documentation accurately reflects the service provided and the decisions made by me, Dr. Too Latham, DO 11/04/24 0813. Part of today?s visit was documented by Michelle FRANZ, acting as scribe. ETHAN TURNER is a 59 year old M here today for 11/04/2024: Patient is here today to discuss surgery. He wants to talk about if he should do his hips or knees first. He states that he would like to have his left hip replaced but also wants to discuss if the knees would affect PT post-operatively. Dr. Prescott did prescribe him tramadol for pain but he states it doesn't seem to do anything for his pain. He take it at least once a day in the morning. He feels that his pain has gotten worse since being on the Methotrexate. He started taking it in June of 2024. He finds his hip is very debilitating is preventing him from doing things he enjoys he is ready to move forward with joint arthroplasty he denies any numbness or tingling 07/27/2024 office visit: here today for Bilateral knee pain. Patient states that his knees have bothered him for about 6 years. Patient states the only injury to his right knee was he went down on ice and hit a rock no injury to his left. Patient states that his left is worse then right. Patient states he has had injection to his knee. Patient has had the gel injection and cortisone injections. Gel injection lasted about a month maybe a little longer. Cortisone injections last him weeks, maybe a month. Patient has done PT 3 years ago for his knees and he still does the exercises that they taught him. Patient takes Tylenol and Etodolac for his pain. Patient has tired ice and heat, heat is better then ice. Patient states his pain in his knees are all over, he states they are bone on bone. Patient would like to have injection in his knees today if possible. He also has bilateral groin pain worse on the left he did have an injection in the past which was not very helpful. He was only recently diagnosed with rheumatoid arthritis and recently started on methotrexate currently taking 5 tabs of 2.5mg. 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 He is interested in getting a joint replaced after his busy season ends in January. He denies tobacco or alcohol use. Plan:Educated patient on anatomy and etiology of both knees. Reviewed xrays with patient and informed him that he does have advanced knee arthritis in both knees and both hips. Informed patient about hip injection and advised that I would not recommend them as they don't typically give much relief. Spoke with patient that his treatment options are do nothing, steroid injections, knee braces, weight loss, anti-inflammatories, physical therapy, or a TKA. Patient wishes to proceed with bilateral knee injection today. Did advise patient that the recovery time for a knee replacement can take up to 2 years to fully recover but by 3 months most people are happy they had it done. He is also getting some adjustments to his rheumatoid medications as he was recently diagnosed. Follow up as needed or to talk more about surgery or sooner if pain, swelling, numbness or associated symptoms, or concerns develop. All questions answered. Patient in agreement of plan. Ortho Exam General General: Yes no acute distress Neurologic: Yes alert and Yes oriented x3 Psychologic: Yes reasonable and appropriate Right Knee Skin/Wound: No erythema, No ecchymosis and No swelling Homans Sign: No Knee ROM: Yes ROM-Extension -20 to 0 (-3) and Yes ROM-Flexion 0-140 (93) Examination: No Med jt line tenderness, No Lat jt line tenderness and No TTP Pes Anserine Stability: NML: Anterior Drawer, NML: Posterior Drawer, NML: Valgus 0, NML: Valgus 30, NML: Varus 0 and NML: Varus 30 Patella Translation: 1 Left Knee Skin/Wound: No ecchymosis, No erythema and No swelling Knee ROM: Yes ROM-Extension -20 to 0 (-3) and Yes ROM-Flexion 0-140 (93) Examination: No med jt line tenderness and No Lat jt line tenderness Stability: NML: Anterior Drawer, NML: Bautista, NML: Posterior Drawer, NML: Valgus 0, NML: Valgus 30, NML: Varus 0 and NML: Varus 30 Patella Translation: 1 KNEE: no effusion varus deformity 2mm medial gapping with valgus stress Right Hip Skin: No Ecchymosis and No Erythema internal rotation @90 degree flexion: 0 degrees external rotation @90 degree extension: 20 degrees Special Tests: No TTP Greater Troch and No RROM flexion pain HIP: Patient is very stiff he does not have significant pain with hip range of motion. There is no gross motor or sensory deficits bilateral lower extremity there is no tenderness over the trochanteric bursa Left Hip Skin/Wound: No Ecchymosis, No soft tissue swelling and No Erythema Hip: Absent eccymosis, soft tissue swelling or erythema internal rotation @90 degree flexion: 0 degrees external rotation @90 degree extension: 20 degrees HIP: Patient is very stiff he does not have significant pain with hip range of motion. There is no gross motor or sensory deficits bilateral lower extremity there is no tenderness over the trochanteric bursa Head: Normocephalic Atraumatic Chest: symmetrical rise, non-labored breathing, no audible wheeze Abdomen: no guarding, non-rigid Supplemental Info 07/27/2024 x-ray right knee: Advanced knee arthrosis there is subluxation of the tibia laterally Advanced knee arthrosis there is subluxation of the tibia laterally advanced varus deformity 07/27/2024 x-ray left knee: Advanced knee arthrosis there is subluxation of the tibia laterally advanced varus deformity 06/01/2024 x-ray pelvis: Advanced bilateral hip arthrosis [id number] with bony erosion large cystic changes of the femoral head and acetabulum Coding Level of Care Code Off vis,est,level 4 Diagnoses Rheumatoid arthritis involving both hips with positive rheumatoid factor M05.751; M05.752 Rheumatoid arthritis location: hip Rheumatoid factor presence: with rheumatoid factor Laterality: bilateral Primary osteoarthritis of left hip M16.12 Osteoarthritis type: primary Assessment and Plan Assessment and Plan (1) Rheumatoid arthritis: Status: Acute Qualifiers: Rheumatoid arthritis location: hip Rheumatoid factor presence: with rheumatoid factor Laterality: bilateral Qualified Code(s): M05.751 - Rheumatoid arthritis with rheumatoid factor of right hip without organ or systems involvement; M05.752 - Rheumatoid arthritis with rheumatoid factor of left hip without organ or systems involvement (2) Degenerative joint disease of left hip: Status: Acute Qualifiers: Osteoarthritis type: primary Qualified Code(s): M16.12 - Unilateral primary osteoarthritis, left hip Plan Patient is here today to discuss whether he should do a knee replacement or hip replacement first. I did advise patient that there isn't any protocol on which extremity to replace first. I did advise patient that radiographically his hips are worse than his knees. I did advise patient that he would to be free from nicotine 6 weeks before surgery and 6 weeks after surgery. Patient would like to have surgery at the end of November. I did advise patient that the day of surgery he will be up and walking. patient will need to stop the etodolac 7 days before surgery, the fish oil 3 weeks before surgery, although there is literature to support continuing methotrexate throughout the perioperative period there is still some evidence of lowered immune systems and we discussed possibly discontinuing it for 2 weeks prior is not getting any benefit anyway according to the patient has been on for 5 months and feels worse. I advised patient that his hips are short on both sides and would be at risk for a leg length discrepancy at least in between surgeries he will eventually most likely do his right hip as well. Risks, benefits and alternatives of surgery reviewed including but not limited to bleeding, infection, nerve, foot drop, artery and/or tissue damage, fracture, VTE, leg length discrepancy, dislocation, need for hip precautions, continued pain and expected post-operative course. After surgery he will have strict hip precautions for 6 weeks of no deep flexion and no reaching to the floor. He will be on Eliquis for 3 weeks post-operatively. He will have to do at least of 6 weeks of PT after surgery. Patient wishes to proceed with a total hip replacement of the left hip on December 29. Same-day surgery He will need medical clearance. I would recommend discontinuing all narcotics before surgery. Follow up at 2 weeks post-op or sooner if pain, swelling, numbness or associated symptoms, or concerns develop. All questions answered. Patient in agreement of plan. 11/04/24 1638 <Electronically signed by Too Latham DO> Date Too Trinh Signature: Date (if applicable) CC: ~ I have examined the patient and the H&P has been reviewed. There are no clinical changes since date of exam.
--- NOTE | 2024-12-29 07:30 | FEM_PTH ---
PATIENT: ETHAN TURNER [place] [facility] U[place][id number] AGE/SX: 59/M ROOM: RE12/29/[address]: Dr. Too Latham DO : 1965 BED: DIS: 12/29/2024 SPEC #: [id number] RECD: 12/29/24 10:42 STATUS: BECKA REHolger #: [id number] BAY: 12/29/24 07:[address]: Too Latham DEPT: SURGICAL PATHOLOGY RECD BY: Carly Pedro ENTERED: 12/29/24 12:21 SP TYPE: FEM HEAD OTHR DR: Dr. Vinh Aguilar MD Tissues: Femoral region, NOS Procedures: Decalcification bone/plaque Surgery Specimen Level III HEADER OPERATION: ERAS, left total hip replacement robotic arm assisted PRE-OP DIAGNOSIS: Rheumatoid arthritis, degenerative joint disease of left hip TISSUE SUBMITTED: A- Left femoral head MICROSCOPIC DIAGNOSIS A. Femoral head, left, total hip arthroplasty: * Articular bone with osteoarthritic reactive/degenerative changes. MICROSCOPIC DESCRIPTION Slides are reviewed. GROSS DESCRIPTION A. Received in fixative is one container labeled with the patient's name and designated Left femoral head. The specimen consists of a femoral head measuring 5.5 x 5.5 x 6.3cm and multiple fragments of bone measuring 6 x 6 x 2.8cm in aggregate. Strategic Accounts Manager sections submitted in two cassettes after decalsification. 12/29/2024 CPT:65821,86579
[2024-12-29] MEDS: Cefazolin 3 GM in Syringe 15 ML IV (07:39)
[2024-12-29] MEDS: TRANEXAMIC ACID 2,000 MG in 0.9% Normal Saline (100mL Bag) 100 ML 660 MG IV (07:50)
[2024-12-29] MEDS: dexAMETHasone 10 MG/ML Vial IV (07:55)
--- NOTE | 2024-12-29 09:58 | PCM.POST.ANE ---
Anesthesia: Postop Eval I Current Vital Signs Temperature: 97.5 F Pulse Rate: 73 Blood Pressure: 136/75 Respiratory Rate: 20 Pulse Ox: 98 Oxygen Delivery Method: Room Air Assessment Airway patent: Yes Spontaneous unlabored respirations: Yes Mental status: Awake nausea: No Vomiting: No Anesthesia Complication: No Fluid Hydration Crystalloid volume administer (ml): 2,600 Total IV fluid infused: 2,600 Progress Note Anesthesia document: Postop Eval 1 completed: Yes
--- NOTE | 2024-12-29 10:02 | OP.PCM_ITS ---
Operative Report (Standard) Operative Information Date of Procedure: 12/29/24 Pre-Operative Diagnosis: Left hip DJD rheumatoid arthritis Post-Operative Diagnosis: Same Surgery/Procedure Performed: Left total hip arthroplasty workforce advisor: Yes Coal Handling Supervisor: Moshe Chen Tasks completed by geriatric nursing assistant: Opening & closing Additional assistant professor of history?: No Type of Anesthesia: Spinal RN Documented Start/Stop Times: Operation Date: 12/29/24 07:30 Case Time Into Pre-Op 12/29/24 05:35 Out of Pre-Op 12/29/24 07:35 Anesthesia Start 12/29/24 07:39 Into Room 12/29/24 07:39 Procedure Start 12/29/24 08:13 Procedure End 12/29/24 09:46 Anesthesia End 12/29/24 09:51 Out of Room 12/29/24 09:51 Into Recovery 12/29/24 09:59 Procedure Start Time: 08:13 Procedure Stop Time: 09:46 Select all DRAINS/GRAFTS/IMPLANTS that apply: Implanted device Implanted device details: Mesa Estimated Blood Loss: 125 Specimen collected: Yes Description of specimen(s) removed: Femoral head Description of surgery: Preoperative diagnosis: Left hip DJD rheumatoid arthritis Postoperative diagnosis: Same Procedure: CT-guided Makoplasty assisted left total hip arthroplasty Implants: Mesa Accolade II stem size 6, 127 degree neck angle +2.5 head neck length 56 mm Trident II acetabular shell with 40 mm cancellous screw 36 mm ceramic head, 10 degree Trident X3 polyethylene insert. Anesthesia: Spinal EBL: 125 cc Complications: None Condition: Stable to PACU Media Relations Director Moshe Chen. My physician assistant professor of history was a vital part of this case. He was important in appropriate retraction during the case, and protection of soft tissues during procedure. His intimate knowledge of the case and my steps aided in safe and expedient completion of the procedure as well as appropriate position of the extremity during the case. He was also vital in assisting with closure under my direct supervision. Indication for procedure: This is a 59-year-old male who has had long-standing arthrosis of the hip who has failed conservative treatment and wished to undergo total hip arthroplasty. We did discuss operative versus nonoperative intervention including risks of bleeding, infection , nerve artery tissue damage, need for further surgery, fracture, leg length discrepancy dislocation blood clot and need for postoperative physical therapy and postoperative expectations. An informed consent was signed. Procedure: Patient was met in the preoperative holding area once again the operative extremity was identified by both patient and physician and was marked. Patient was met by anesthesia . Anesthesia was started. patient was then positioned in the lateral decubitus position on a well-padded pegboard with an axillary roll. All bony prominences were checked and padded. The patient was prepped and draped in the usual sterile fashion. A timeout was called to ensure the proper patient procedure and extremity were being contemplated. Anatomic landmarks were palpated and marked for a standard posterior lateral approach. Prior to this the ASIS was palpated and 3 fingerbreadths proximal to this 3 pins were placed at a 45 degree angle into the iliac crest with good purchase, stab incisions were made with a 15 blade into the skin prior to placement. The Makoplasty array was then secured. A 10 blade scalpel was used to make a posterior incision through the skin and subcutaneous tissue. retractors were used and electrocautery was used to maintain meticulous hemostasis and dissect full-thickness flaps until the gluteal fascia was reached. The gluteal fascia was incised in line with the gluteal fibers. The bursal tissue was then freed from the underside and a Charnley retractor was placed. The femoral trochanteric checkpoint was placed and leg length was assessed using the trochanteric checkpoint and an EKG lead that was placed on the knee prior to prepping the leg .the fat pad was then elevated off of the external rotators with electrocautery and the external rotators were dissected off of the greater trochanter including the piriformis and were tagged with #1 Ethibond for later repair. The joint capsule opened with posterior trapdoor technique. The hip was surgically dislocated. The measurement on the preoperative CT from the top of the lesser trochanter to the femoral neck cut was marked Hohmann was placed around the lesser trochanter. A neck cutting guide was used to mary kate the neck with a Bovie and an oscillating saw was used complete the femoral neck cut. The femoral head was then removed and sized. We then turned our attention to the acetabulum. A Bovie was used to make a perforation in the anterior joint capsule and a Nayak retractor was placed this was repeated in the 6 o'clock position and a wide jackie was placed there. With a long handled knife the labral and pulvinar tissue were removed. We then registered the acetabulum with the pointing array and confirmed our landmarks. Once the socket was thoroughly prepared and labral tissue and pulvinar was removed we single reamed with the robotic arm. We then used the robotic arm to position the acetabular implant and impacted it into place under robotic guidance. We then proceeded to place a posterior superior screw by drilling first measuring and inserting the screw. We then inserted a trial liner. And turned our attention back to the femur at this point a femoral elevator was used. As well as a pointed wide Hohmann around the lesser trochanter and a Hohmann to help retract the gluteus medius. A box chisel was used to remove excess lateral neck followed by a canal finder and a lateralizing reamer. This was followed by sequential broaches. Attention was made of the version within the canal based on preoperative templating. Once the final broach was seated we then trialed reduced the hip it was determined that a 127 degree neck angle with a +2.5 neck length was the appropriate size. This did lead him 12 mm longer than his contralateral however he is planning on having his other hip done and there is significant shortening on that side we then checked stability with shuck testing as well as flexion and internal rotation. then proceeded with hip extension and checked leg lengths at the knees and heels as well as with the trochanteric checkpoint and knee EKG lead. At this point trials were removed. A liner was inserted to the cup. The femoral stem was inserted. We re-trialed and then proceeded to impact the femoral head onto the Lenin taper. We then surgically reduce the hip check stability again and leg lengths and were satisfied. Betadine rinse was allowed to sit for 5 minutes while everyone changed their gloves. Thorough irrigation was performed. Followed by closure of the external rotators with #2 FiberWire followed by closure of gluteal fascia with #1 Ethibond. 0 Vicryl fat stitches and 2-0 Vicryl subcutaneous stitches and peri in the skin. Peri were placed in the skin pin sites over the iliac crest and dressed with a Mepilex dressing. The main incision was dressed with a Mepilex ag dressing and an abduction pillow was placed. Patient tolerated the procedure well there was no intraoperative complications all counts were correct and the patient was brought back to the PACU in stable condition Surgical Findings: Rheumatoid arthritis DJD Complications Complications: No
--- NOTE | 2024-12-29 10:06 | EX.PCM.DISCH ---
Discharge Instructions Diet Discharge Diet: No restrictions Activity Weight Bearing Status: Full weight bearing Dressing / Incision Call your doctor if you observe: Shortness of breath and Chest pain Additional Dressing/Incision Instructions:: Do not shower 72hrs. Begin daily showering warm water antibacterial soap postop day #3( 72hrs Post-operatively) and then daily. Leave the dressing on for 72 hours postoperatively then may remove prior to first shower and change dressing daily after this until no drainage for 2 consecutive days then may leave open to air. Follow hip precautions that were reviewed in hospital. Wear compression stockings, may remove at night. Start physical therapy as directed in hospital. Follow prescriptions instructions do not take any other pain medication or differ dosing without consulting your physician. Do not take oral NSAIDs until blood thinner has been completed , then may begin the day after completion if needed . Call Dr. aLtham's office with any concerns. Follow Up Care Please Follow Up With: Too Latham DO When: 2 weeks Test Results: Test results from this visit will be discussed in further detail at your follow-up appointment, if applicable. Discharge Plan Admission Primary Reason for Your Visit: Left total hip arthroplasty Attending Provider: Too Latham Primary Care Provider: Vinh Aguilar Instructions Print Language: Tamazight Discharge Orders/Prescriptions Prescriptions: New acetaminophen 500 mg tablet 1,000 mg PO Q6H Qty: 100 1RF cephalexin 500 mg capsule 1,500 mg PO Q8H Qty: 6 0RF Rx Instructions: Take 3 tabs before you go to bed and 3 tabs after 5 AM morning after surgery when you wake up Eliquis 2.5 mg tablet 2.5 mg PO BID Qty: 42 0RF Rx Instructions: Begin morning after surgery. oxycodone 5 mg tablet 5 - 10 mg PO Q4H PRN (Reason: pain) 7 Days Qty: 60 0RF Continued valsartan-hydrochlorothiazide 320-25 mg tablet 1 tab PO QDAY omeprazole 40 mg capsule,delayed release(DR/EC) 40 mg PO QDAY folic acid 1 mg tablet 1 mg PO QDAY cholecalciferol (vitamin D3) 50 mcg (2,000 unit) capsule 50 mcg PO QDAY Rx Instructions: Unsure dose. High Potency leucovorin calcium 15 mg tablet 15 mg PO DAILY prednisone 5 mg tablet 5 mg PO QAM gemfibrozil 600 MG tablet 600 mg PO BIDAC Held etodolac 400 mg tablet 400 mg PO BID Hold Instructions: May resume after completion of blood thinner Patient Comments: STOP 12/23/24 BEFORE SURGERY 12/29/24 methotrexate sodium 2.5 mg tablet 20 mg PO SA Hold Instructions: Hold the next 2-week doses tramadol 50 mg tablet 50 mg PO Q12H PRN (Reason: pain) Hold Instructions: Do not take while on other narcotics that were provided fish oil-dha-epa 1 EACH capsule 1 ea PO DAILY Hold Instructions: And resume after completion of blood thinner Patient Comments: STOP 12/23/24 BEFORE SURGERY 12/29/24 Other Ambulatory Orders: 12 Lead EKG (Routine) Timeframe: 20241221 Location: None Selected Ordered By: Dr. Too Latham Referrals / Follow Up: Vinh Aguilar MD [Primary Care Provider] - Disposition Disposition (needs filled in before D/C Order can be placed): Home, Self Care
--- NOTE | 2024-12-29 10:10 | RAD_ITS ---
EXAM: XR Left Hip With Pelvis When Performed, 1 View CLINICAL INDICATION: POST OP TECHNIQUE: Frontal view of the left hip with pelvis when performed. COMPARISON: No relevant prior studies available. FINDINGS: BONES/JOINTS: Total hip replacement. Intact hardware. No acute fracture. No dislocation. SOFT TISSUES: Soft tissue emphysema and swelling. RAD/Hip Min 2 Views (Portable) IMPRESSION: Status post total hip replacement in anatomic position. Reading Location: [facility]
--- NOTE | 2024-12-29 11:11 | POSTOPAN2_ITS ---
Anesthesia Postop Eval I Sum Postop Eval Completion status Anesthesia document: Postop Eval 1 completed: Yes Anesthesia Postop Eval I Summary Anesthesia Postop Eval I Summary: Anesthesia Postop Eval I: Assessment Summary Airway patent Yes 12/29/24 09:59 [email or web address] Spontaneous unlabored Yes 12/29/24 09:59 [email or web address] respirations Mental status Awake 12/29/24 09:59 [email or web address] nausea No 12/29/24 09:59 [email or web address] Vomiting No 12/29/24 09:59 [email or web address] Anesthesia Postop Eval I: Fluid Summary Crystalloid volume administer 2,600 12/29/24 09:59 [email or web address] (ml) Colloids volume administered ( ml) Blood Product volume administered (ml) Total IV fluid infused 2,600 12/29/24 09:59 [email or web address] Anesthesia Postop Eval I: Summary Notes Anesthesia Complication No 12/29/24 09:59 [email or web address] Anesthesia Complication Comment: Post-operative progress note Anesthesia: Postop Eval II Evaluation Mental status: Awake Pain Level: 0 nausea: No Vomiting: No Complications Anesthesia Complication: No
--- NOTE | 2024-12-29 11:11 | PCM.POSTANE2 ---
Anesthesia Postop Eval I Sum Postop Eval Completion status Anesthesia document: Postop Eval 1 completed: Yes Anesthesia Postop Eval I Summary Anesthesia Postop Eval I Summary: Anesthesia Postop Eval I: Assessment Summary Airway patent Yes 12/29/24 09:59 [email or web address] [email or web address] Spontaneous unlabored Yes 12/29/24 09:59 [email or web address] CUP [email or web address] respirations Mental status Awake 12/29/24 09:59 [email or web address] nausea No 12/29/24 09:59 [email or web address] CUP [email or web address] Vomiting No 12/29/24 09:59 [email or web address] [email or web address] Anesthesia Postop Eval I: Fluid Summary Crystalloid volume administer 2,600 12/29/24 09:59 [email or web address] [email or web address] (ml) Colloids volume administered ( ml) Blood Product volume administered (ml) Total IV fluid infused 2,600 12/29/24 09:59 [email or web address] [email or web address] Anesthesia Postop Eval I: Summary Notes Anesthesia Complication No 12/29/24 09:59 [email or web address] Anesthesia Complication Comment: Post-operative progress note Anesthesia: Postop Eval II Evaluation Mental status: Awake Pain Level: 0 nausea: No Vomiting: No Complications Anesthesia Complication: No
[2024-12-29] MEDS: Cefazolin 2 GM in Syringe IV (12:08)
[2024-12-29] MEDS: oxyCODONE 5 MG Tablet PO (13:31)
== END 2024-12-29 14:15 | disposition home or self-care (01) ==
LOC: SDC 05:09 → AC 05:19
PROVIDERS: PCP Internal Medicine; Referring Provider Orthopaedic Surgery; Visit Provider Orthopaedic Surgery
PROC: 8E0Y0CZ Robotic Assisted Procedure of Lower Extremity, Open Approach (ICD-10-PCS; CPT 27130; principal; 2024-12-29 07:00)
DX: M06.052 Rheumatoid arthritis without rheumatoid factor, left hip (principal); M05.751 Rheumatoid arthritis with rheumatoid factor of right hip without organ or systems involvement; M05.752 Rheumatoid arthritis with rheumatoid factor of left hip without organ or systems involvement; M16.12 Unilateral primary osteoarthritis, left hip; Z87.891 Personal history of nicotine dependence; I10 Essential (primary) hypertension; K21.9 Gastro-esophageal reflux disease without esophagitis; Z79.899 Other long term (current) drug therapy
CPT/HCPCS: 27130; 01214; S2900; 36415; 73502; 82962; 82985; 83036; 83735; 85610; 85730; 86850; 86900; 86901; 87081; 88304; 88307; 88311; 93005; 97162; C1713; C1776; J2405; J3475

== ENCOUNTER 2025-02-02 08:30 | Outpatient (RCR) | payer BC, SELFPAY ==
--- NOTE | 2025-01-01 13:38 | HP.PTEVAL ---
Patient's Visit Information Visit Information Visit Information: ETHAN TURNER is a 59 year old M referred to Physical Therapy by Dr. Too Latham DO with a diagnosis of L ANA MARIA 12/29/24. Date of Evaluation: 01/01/25 Physical Therapist: James Reyes, PT, ATC Visit Plan Frequency: 2x /Week Duration: 4-6 Weeks Plan: L LE strengthening, balance and proprio, core strengthening, stair negotiation, gait training, and HEP Subjective Subjective: DOS: 12/29/24. Pt reports he had his L ANA MARIA performed at that time. Pt notes his L hip progressively worsened over this time span. Pt notes he had severe pain at times prior to surgery. Pt reports he still has a lot of pain at this time, but the pain is mostly incisional. Pt denies any L LE tingling or numbness at this time. Pt reports his pain is still waking him up at this time. 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 Pt notes he has been very compliant with following his movement restrictions at this time. Pt lives in a one story house, so he has not had to negotiate stairs at this time. 2/10 pain while sitting here at rest, 9/10 pain at worst (when he wakes up in the morning before he gets his meds) Pain L hip: Pain Intensity (Out of 10): 2 Objective Objective: Neuro: B LE sensation is WNL to light touch TU.6 sec Observation: Incision is stil healing. No signs of infection. ROM: R hip flex= 60, ext= 10; L hip flex= 30, ext= 0 degrees MMT: R hip flex= 29, ext= 31; L hip flex= 12, ext= 17 #F Balance/Special Test Scores WOMAC Total Score: 73 WOMAC Percentatge: 23.9600 Goals Goal 1:: Decrease L hip pain x 50% to aid with sleep Goal Time Frame: 4-6 Weeks Goal 2:: Increase L hip strength x 10#F to aid with stair negotiation Goal Time Frame: 4-6 Weeks Goal 3:: Increase L hip flexion x 20 degrees to aid with bath transfers Goal Time Frame: 4-6 Weeks Goal 4:: I with HEP Goal Time Frame: 4-6 Weeks Rehabilitation Potential Physical Therapy Diagnosis: Pt has L hip pain, weakness, and limited ROM secondary to L ANA MARIA Rehabilitation Potential: Good Anticipated Interventions Patient/Client Instruction: Educate patient on: Condition and Plan of Care For the Purpose of:: To improve self management Therapeutic Exercise to Include: Strength training, Endurance training, Balance training, Gait and locomotor training and Dynamic Lumbar Stabilization For the Purpose of:: To decrease pain, To increase ROM and To improve muscle performance and motor function Cryotherapy (ice pack, ice massage): Yes For the Purpose of:: To decrease pain Text: Thank you for the opportunity to evaluate your patient. For Medicare and Medicare HMO plans, please review the plan of care and approve it. It will need to be FAXED BACK to us at [phone] for Medicare purposes. For Medicare only, by signing this I certify the plan of care. Please let me know if there are questions or concerns regarding this plan of care. Physician Signature: Date:
== END 2025-02-02 19:00 | disposition home or self-care (01) ==
LOC: PT 08:30
PROVIDERS: PCP Internal Medicine; Referring Provider Orthopaedic Surgery; Visit Provider Orthopaedic Surgery
DX: M16.12 Unilateral primary osteoarthritis, left hip (principal)
CPT/HCPCS: 97110; 97140; 97161

== ENCOUNTER → 2025-02-09 | Outpatient (CLI) | payer BC, SELFPAY ==
[2025-02-09 10:09] LABS: Absolute Lymphocyte Count 1.68 X10^3/uL (0.83-4.51); Absolute Neutrophil Count 2.7 X10^3/uL (2.0-7.7); Basophil# 0.03 X10^3/uL; Basophil% 0.6 % (0-1); Eosinophil# 0.06 X10^3/uL; Eosinophils% 1.3 % (0-5); Hematocrit 39.9 % (40-54); Hemoglobin 13.8 g/dL (13.0-16.5); Lymphocyte # 1.68 X10^3/ul (0.83-4.51); Lymphocyte % 35.7 % (19-41); Mean Corp Hgb Conc 34.6 g/dL (32-36); Mean Corpuscular Hgb 34.4 pg (27.0-32.0); Mean Corpuscular Volume 99.5 fL (80-94); Monocyte# 0.28 X10^3/uL; Monocyte% 5.9 % (0-10); NRBC Flagged by Analyzer 0 % (0-5); Neutrophil # 2.65 X10^3/uL (2.7-7.7); Neutrophil % 56.3 % (47-70); Platelet Count 245 K/mm3 (150-450); RBC Distribution Width CV 13.9 % (11.6-14.6); RBC Distribution Width SD 50.5 fl (35.1-43.9); Red Blood Count 4.01 M/mm3 (4.6-6.2); White Blood Count 4.7 K/mm3 (4.4-11.0)
[2025-02-09 10:46] LABS: ALB/GLOB Ratio 1.9 RATIO (0.9-2.4); AST(SGOT) 19 U/L (<=37); Alanine Aminotransfer ALT/SGPT 29 U/L (<=46); Albumin, Serum 4.4 g/dL (3.5-5.0); Alkaline Phosphatase 96 U/L (40-129); Anion Gap 11 (5-15); BUN 21 mg/dL (4-19); BUN/Creat Ratio 31.4 RATIO (10-20); Calcium,Total 9.5 mg/dL (7.6-11.0); Carbon Dioxide 23.2 mmol/L (21.0-32.0); Chloride 106 mmol/L (98-108); Creatinine, Serum 0.66 mg/dL (0.70-1.20); EST Glomerular Filtration Rate 108 (>60); Globulin 2.3 g/dL (2.2-4.2); Glucose 96 mg/dL (70-99); Potassium 4.5 mmol/L (3.3-5.1); Protein, Total 6.7 g/dL (5.9-8.4); Sodium Level 140 mmol/L (133-145); Total Bilirubin 0.57 mg/dL (0.00-1.30)
== END | disposition home or self-care (01) ==
LOC: MTLAB 08:38
PROVIDERS: PCP Internal Medicine; Referring Provider Internal Medicine Rheumatology; Visit Provider Internal Medicine Rheumatology
DX: M06.4 Inflammatory polyarthropathy (principal); Z79.899 Other long term (current) drug therapy
CPT/HCPCS: 36415; 80053; 85025

== ENCOUNTER → 2025-02-11 | Outpatient (CLI) | payer BC, SELFPAY ==
--- NOTE | 2025-02-11 07:49 | CT_ITS ---
PROCEDURE: EXTREMITY LOWER WITHOUT CONTRA 02/11/2025 REASON FOR EXAM: TEMPLATING FOR RIGHT ANA MARIA TECHNIQUE: Axial CT images of the right hip obtained without intravenous contrast. Coronal and Sagittal reconstruction series were provided. CONTRAST: None One or more dose reduction techniques were used (e.g., Automated exposure control, adjustment of the mA and/or kV according to patient size, use of iterative reconstruction technique). RADIATION DOSE SUMMARY: DLP: 800.18 MGycm COMPARISON: December 11, 2024 FINDINGS: Bones: There is a 1.7 x 1.1 cm dense blastic focus in the superior aspect of the right iliac, image 61/615, unchanged. There is a 0.7 x 0.3 cm blastic lesion in the right iliac at the SI joint, image 87/615, unchanged. There is a 1 cm blastic lesion in the lateral aspect of the right iliac, image 73/615, unchanged. There is a total hip prosthesis in position on the left, new compared to the prior. There is severe osteoarthritis of the right hip with superolateral migration of the femoral head and collapse of the articular surface, with subcortical cyst formation and marginal osteophytes. No acute fracture is identified. There is grade 1 spondylolisthesis at L4-5, 0.5 cm. Soft Tissues: Atherosclerotic calcifications are noted. There is a 3.7 x 2.0 cm uncomplicated fat containing right inguinal hernia, unchanged. Prostate calcifications are visible. CT/Extremity Lower without Contra IMPRESSION: There is a 1.7 x 1.1 cm dense blastic focus in the superior aspect of the right iliac, image 61/615, unchanged. There is a 0.7 x 0.3 cm blastic lesion in the right iliac at the SI joint, image 87/615, unchang ed. There is a 1 cm blastic lesion in the lateral aspect of the right iliac, image 73/615, unchanged. Consider whole-body bone s can correlation. There is a total hip prosthesis in position on the left, new compared to the pr ior. There is grade 1 spondylolisthesis at L4-5, 0.5 cm. There is severe osteoarthritis of the right hip with superolateral migration of the femoral head and collapse of the articular surface, with subcortical cyst formation and marginal osteophytes. Reading Location: [facility]
== END | disposition home or self-care (01) ==
LOC: CT 07:38
PROVIDERS: PCP Internal Medicine; Referring Provider Orthopaedic Surgery; Visit Provider Orthopaedic Surgery
DX: M16.11 Unilateral primary osteoarthritis, right hip (principal)
CPT/HCPCS: 73700

== ENCOUNTER 2025-02-23 08:02 | Day surgery (SDC) | payer BC, SELFPAY ==
[2025-02-23] VITALS (11 sets, daily range): BP systolic 104–137; BP diastolic 58–83; PULSE 75–94; RESP 16–18; TEMP 36.3–36.7; O2SAT 94–98; BMI 38.2
[2025-02-23] MEDS: Lactated Ringers 1,000 ML 999 ML IV (08:45)
[2025-02-23] MEDS: Magnesium 1 GM over 15 mins IV (08:50)
[2025-02-23] MEDS: Acetaminophen 500 MG Tablet 1000 MG PO ×2 (09:04→17:02)
[2025-02-23] MEDS: Gabapentin 600 MG Tablet PO (09:04)
[2025-02-23] MEDS: Scopolamine 1mg/72hr Patch 1 PATCH TD (09:05)
[2025-02-23] MEDS: Celecoxib 200 MG Capsule 400 MG PO (09:05)
--- NOTE | 2025-02-23 09:43 | PCM.PRE.AN2 ---
ASA Classification* ASA Classification ASA Classification: 2 Assessment & Plan Anesthesia* Anesthesia Assessment Anesthesia Assessment: Discussed sedation and/or anesthesia options, risks, benefits, and alternatives with patient/parents/legal guardian/POA. Questions invited. The patient/parents/legal guardian/POA seems to understand and agrees to proceed with anesthesia plan. Reviewed the physical assessment, medical history, allergy history and patient home medications list prior to surgery/procedure/anesthetic and documented any changes. Performed airway and anesthesia risk assessments. Anesthesia Type Anesthesia Type: MAC and Spinal History Source History Obtained from:: Patient and Chart Anesthesia Focused Assessment* Temperature: 98.1 F Pulse Rate: 75 Blood Pressure: 133/75 Respiratory Rate: 18 Pulse Ox: 98 Oxygen Delivery Method: Room Air Airway Assessment Mouth opens: >3 cm Mallampati Score: III Focused Labs Anesthesia Preop lab: CBC WBC 4.7 K/mm3 (4.4-11.0) 02/09/25 08:41 02/09/25 RBC 4.01 M/mm3 (4.6-6.2) L 02/09/25 08:41 02/09/25 Hgb 13.8 g/dL (13.0-16.5) 02/09/25 08:41 02/09/25 Hct 39.9 % (40-54) L 02/09/25 08:41 02/09/25 Plt Count 245 K/mm3 (150-450) 02/09/25 08:41 02/09/25 CHEMISTRY Potassium 4.5 mmol/L (3.3-5.1) 02/09/25 08:41 02/09/25 Sodium 140 mmol/L (133-145) 02/09/25 08:41 02/09/25 Magnesium 2.2 mg/dL (1.5-2.2) 12/21/24 07:55 12/21/24 BUN 21 mg/dL (4-19) H 02/09/25 08:41 02/09/25 Creatinine 0.66 mg/dL (0.70-1.20) L 02/09/25 08:41 02/09/25 Glucose 96 mg/dL (70-99) 02/09/25 08:41 02/09/25 POC Glucose 82 mg/dL (74-106) 12/29/24 05:53 12/29/24 COAG PT 12.8 SECONDS (11.7-14.9) 12/21/24 07:55 12/21/24 Pre-Assessment Diagnosis/Proposed Procedure Planned Operative Procedure(s): (R) Right Total Hip Replacement Robotic Arm Assisted, ERAS Anesthesia History Anesthesia History - peer financial counselor: Anesthesia History - peer financial counselor Hx Hospitalization No 02/10/25 09:12 Any Problems With Anesthesia No 02/10/25 09:12 Cholinesterase deficiency No 02/10/25 09:12 You/Your Family Experience No 02/10/25 09:12 fever (hyperthermia) with Relationship Recent Exposure to Contagious No 02/23/25 08:40 Disease Does patient have nerve No 02/10/25 09:12 stimulator Patient instructed to have device shut off --Does patient have Pacemaker No 02/23/25 08:40 or ICD? When Was Last Pacemaker Check QUESTION #4 FULL TEXT: You/Your Family Experience fever (hyperthermia) with Anesthesia Last Oral Intake Last Oral intake: Last Oral Intake NPO since 06:00 02/23/25 08:40 Meds taken in AM with sips of Yes 02/23/25 08:40 water? Meds patient instructed to omeprazole 02/23/25 08:40 take am of surgery PONV PONV - peer financial counselor: PONV - peer financial counselor Female No 02/10/25 09:12 HX of Motion Sickness No 02/10/25 09:12 HX of N/V After Surgery No 02/10/25 09:12 Non-Smoker Yes 02/10/25 09:12 Duration of Surgery greater Yes 02/10/25 09:12 than 60 minutes Number of Risk Factors 2 02/10/25 09:12 PONV Score Moderate Risk 02/10/25 09:12 Height & Weight Height & Weight: Anesthesia: Height & Weight Height 5 ft 9 in 02/23/25 08:40 Weight: 117.6 kg 02/23/25 08:40 Body Mass Index (BMI) 38.2 02/23/25 08:40 Respiratory Assessment Respiratory Assessment - peer financial counselor: Respiratory Tract Infection Hx - peer financial counselor Hx Respiratory Tract Infection No 02/10/25 09:12 STOP Sleep Apnea STOP Sleep Apnea - peer financial counselor: STOP Sleep Apnea - peer financial counselor Hx Hypertension Yes: CONTROLLED ON MED 02/10/25 09:12 Hx Sleep Apnea No 02/10/25 09:12 CPAP BIPAP Do you snore loudly (louder Yes 02/10/25 09:12 than talking or can be heard Do you often feel tired/ No 02/10/25 09:12 fatigued/ sleepy during daytime? Has anyone observed you stop No 02/10/25 09:12 breathing during sleep? STOP Results Positive 02/10/25 09:12 QUESTION #5 FULL TEXT : Do you snore loudly (louder than talking or can be heard through closed doors)? Tobacco Use History Tobacco Use History - peer financial counselor: Tobacco Use History - peer financial counselor Tobacco Use Smoking Status Former smoker 02/10/25 09:12 Hx Tobacco Use No 02/10/25 09:12 Years Smoking Packs Smoked per Day Smoking Cessation Date was Yes - quit smoking within 15 02/10/25 09:12 within the last 15 years years Hx Smoking Cessation Date Hx Smoking Cessation Counseling Hematologic Medial History Hematologic Hx - peer financial counselor: Hematologic Medical Hx - laboratory geneticist Hx of Blood Transfusion No 02/10/25 09:12 Hx of Transfusion in last 3 No 02/10/25 09:12 Months Date of Last Transfusion (if within last 3 months) Ever experience any problems No 02/10/25 09:12 with transfusion(s)? Specify any problems Hx of Preganancy in last 3 N/A 02/10/25 09:12 Months Nurse Filling Out Transfusion VCHRISTIN 02/10/25 09:12 & Questions: Date: 02/10/25 02/10/25 09:12 Time: 09:14 02/10/25 09:12 Patient unable to answer at this time (ie. confused, unrespo /Reproduction History /Reproductive History - peer financial counselor: /Reproductive Hx- peer financial counselor Hx Now Gestational Age (in weeks): EDC: Hx Hx Para Hx Section SAB Active Medications Active Medications: Current Medications Generic Name Dose Route Start Last Admin Trade Name Freq PRN Reason Stop Dose Admin Acetaminophen 1,000 mg 02/23/25 10:30 02/23/25 09:04 Acetaminophen 500 Mg Tablet PO 02/23/25 10:31 1,000 mg PREOP ONE Administration Celecoxib 400 mg 02/23/25 10:30 02/23/25 09:05 Celecoxib 200 Mg Capsule PO 02/23/25 10:31 400 mg PREOP ONE Administration Dexamethasone Sodium Phosphate 10 mg 02/23/25 10:30 Dexamethasone 10 Mg/Ml Vial IV 02/23/25 10:31 INTRAOP ONE Gabapentin 600 mg 02/23/25 10:30 02/23/25 09:04 Gabapentin 600 Mg Tablet PO 02/23/25 10:31 600 mg PREOP ONE Administration Lactated Ringer's 1,000 mls @ 999 mls/hr 02/23/25 10:30 02/23/25 08:45 IV 02/23/25 11:30 999 mls/hr .Q1H1M STEVEN Administration Cefazolin Sodium 2 gm/ Sodium 110 mls @ 150 mls/hr 02/23/25 10:30 Chloride IV 02/23/25 11:13 INTRAOP ONE Tranexamic Acid 2,000 mg/ 120 mls @ 660 mls/hr 02/23/25 10:30 Sodium Chloride IV 02/23/25 10:40 INTRAOP ONE Lactated Ringer's 1,000 mls @ 125 mls/hr 02/23/25 10:30 IV 02/23/25 18:29 .Q8H STEVEN Magnesium Sulfate 1 gm/ 102 mls @ 408 mls/hr 02/23/25 10:30 02/23/25 08:50 Dextrose IV 02/23/25 10:44 408 mls/hr INTRAOP ONE Administration Insulin Human Lispro 1 - 6 unit 02/23/25 10:30 Insulin Lispro 100 Unit/Ml Insuln.Pen SC Q4H PRN PRN BG>/= 180, SEE PROTOCOL Protocol Scopolamine HBr 1 patch 02/23/25 10:30 02/23/25 09:05 Scopolamine 1mg/72hr Patch TD 02/23/25 10:31 1 mg PREOP ONE Administration PFSH Medical History Shortness of breath on exertion Hypertension Wears glasses Colonoscopy planned Gastric reflux History of stress test Former smoker Home Medications ?Medication ?Instructions ?Recorded ?Last Taken ?Type gemfibrozil 600 mg tablet 600 mg PO BIDAC 01/08/18 12/28/24 19:00 History omeprazole 40 mg capsule,delayed 40 mg PO QDAY 07/27/24 02/23/25 06:00 History release valsartan 320 1 tab PO QDAY 07/27/24 12/29/24 03:30 History mg-hydrochlorothiazide 25 mg tablet etodolac 400 mg tablet 400 mg PO BID 02/08/25 Unknown History folic acid 1 mg tablet 1 mg PO BID 02/08/25 Unknown History methotrexate sodium 15 mg tablet 25 mg PO QWEEK 02/08/25 02/06/25 History acetaminophen 650 mg 1,300 mg PO Q12H PRN pain 02/10/25 Unknown History tablet,extended release (8 Hour Pain Reliever) cholecalciferol (vitamin D3) 25 25 mcg PO DAILY 02/10/25 Unknown History mcg (1,000 unit) tablet (Vitamin D3) omega 6-olk-ipr-fish oil 1,200 mg 1 cap PO DAILY 02/10/25 02/16/25 History (144 mg-216 mg) capsule (Fish Oil) Allergy/AdvReac Type Severity Reaction Status Date / Time No Known Allergies Allergy Verified 02/23/25 08:55 Family History Mother Heart disease Diabetes Father Heart disease Surgical History (Updated 02/10/25 @ 09:12 by Reshma Byrd) History of total left hip replacement Social History household members: spouse Smoking Status: Former smoker alcohol intake: current alcohol intake frequency: holidays/special occasions only Addt'l Information Additional Findings: EKG NSR Review of Systems (Anesthesia) ROS Narrative System reviewed and no additional complaints, except as documented. Physical Exam Const alert and oriented x3 Nutritional Appearance: obese Resp normal respiratory effort and normal air movement Auscultation: clear to auscultation bilaterally Cardio regular rate Neuro oriented x3 and moves all extremities
--- NOTE | 2025-02-23 10:20 | HP.PCM_ITS ---
History and Physical Date of Admission: 02/23/25 [facility] [address] [place] [address] OFFICE VISIT Date of Service: 02/08/25 MR#: [id number] Acct: [id number] Name: ETHAN TURNER Rep #: [id number] : 1965 Provider: Dr. Too Latham DO Age/Sex: 59/M Location: [facility] [place] Status: Signed Intake Vital Signs 11/04/2514:56 01/11/2510:47 Height 5 ft 9.5 in 5 ft 9 in Intake Visit Reasons: left hip Chief Complaint: 6 week post op left hip Accompanied by: Is patient in pain?: No Allergies No Known Allergies Allergy (Verified 02/08/25 10:52) Medications ?Medication ?Instructions ?Recorded ?Confirmed ?Type gemfibrozil 600 mg tablet 600 mg PO BIDAC 01/08/18 02/08/25 Histor y omeprazole 40 mg capsule,delayed 40 mg PO QDAY 07/27/24 02/08/25 History release valsartan 320 1 tab PO QDAY 07/27/24 02/08/25 History mg-hydrochlorothiazide 25 mg tablet acetaminophen 500 mg tablet 1,000 mg (2 x 500 mg) PO Q6H #100 02/08/25 Rx tabs etodolac 400 mg tablet 400 mg PO BID 02/08/25 02/08/25 History folic acid 1 mg tablet 1 mg PO QDAY 02/08/25 02/08/25 History methotrexate sodium 15 mg tablet 25 mg PO QWEEK 02/08/25 02/08/25 History PFSH Medical History Wears glasses Colonoscopy planned Gastric reflux History of stress test Former smoker Surgical History History of total left hip replacement Family History Mother Heart disease DiabetesFather Heart disease Social History household members: spouse Smoking Status: Former smoker alcohol intake: current alcohol intake frequency: holidays/special occasions only HPI left hip Details: This documentation accurately reflects the service provided and the decisions made by me, Dr. Too Latham, DO 02/08/25 0810. Part of today?s visit was documented by Kimberly Ariza ATC, acting as scribe. ETHAN TURNER is a 59 year old M here today for s/p left total hip arthroplasty DOS 12/29/2024. Patient denies any pain in the left hip and states he is doing well after surgery. He ambulates with a cane today. Patient states the right hip is bothering him and he states since surgery it has gotten worse. He states he can barely put any weight on it and physical therapy seems to be aggravating it more. He describes the pain in the groin and he will feel the pain in the back of the hip and into the lumbar spine. He denies any numbness/tingling down the leg. He had an injection with the [facility] in the hip about a year ago and he didn't get any relief from it. He denies any prior surgery to the right hip. Ortho Exam General General: Yes no acute distress and Yes well groomed Neurologic: Yes alert and Yes oriented x3 Psychologic: Yes reasonable and appropriate Right Hip Skin: Yes CDI, No Ecchymosis, No soft tissue swelling and No Erythema HIP: good sensation in lower leg No gross motor or sensory deficits Groin pain with hip range of motion He is able to ambulate with a cane IR -10 ER 10 Left Hip Skin/Wound: Yes CDI, No Ecchymosis, No soft tissue swelling and No Erythema Hip: Absent eccymosis, soft tissue swelling or erythema HIP: good sensation in lower leg Head: Normocephalic Atraumatic Chest: symmetrical rise, non-labored breathing, no audible wheeze Abdomen: no guarding, non-rigid Supplemental Info 02/08/2025 x-ray bilateral hips: Status post left total hip arthroplasty with good interfaces and position; right hip has severe end-stage arthrosis with flattening of the femoral head, x-ray last 12/29/2024 left total hip arthroplasty: Dr. Latham 07/27/2024 x-ray right knee: Advanced knee arthrosis there is subluxation of the tibia laterally Advanced knee arthrosis there is subluxation of the tibia latera lly advanced varus deformity 07/27/2024 x-ray left knee: Advanced knee arthrosis there is subluxation of the tibia laterally advanced varus deformity 06/01/2024 x-ray pelvis: Advanced bilateral hip arthrosis [id number] with bony erosion large cystic changes of the femoral head and acetabulum Coding Level of Care Code Off vis,est,level 4 Diagnoses Avascular necrosis of right femur M87.051 Laterality: right Rheumatoid arthritis involving both hips with positive rheumatoid factor M05.751; M05.752 Rheumatoid arthritis location: hip Rheumatoid factor presence: with rheumatoid factor Laterality: bilateral Assessment and Plan Assessment and Plan (1) AVN of femur: Status: Acute Qualifiers: Laterality: right Qualified Code(s): M87.051 - Idiopathic aseptic necrosis of right femur (2) Rheumatoid arthritis: Status: Acute Qualifiers: Rheumatoid arthritis location: hip Rheumatoid factor presence: with rheumatoid factor Laterality: bilateral Qualified Code(s): M05.751 - Rheu matoid arthritis with rheumatoid factor of right hip without organ or systems involvement; M05.752 - Rheumatoid arthritis with rheumatoid factor of left hip without organ or systems involvement Orders: Orders Extremity Lower without Contra Today M16.11 - Unilateral primary osteoarthritis, right hip Referrals Physical Therapy Referral M16.11 - Unilateral primary osteoarthritis, right hip Plan Obtained and reviewed x-rays of both of the hips. Explained that his right hip does have severe arthritis and he has developed collapse of his femoral head. He would like to proceed with total hip arthroplasty of the right hip. recomm end he should stop physical therapy for the left hip as it is making his right hip worse. Risks, benefits and alternatives of surgery reviewed including but not limited to bleeding, infection, nerve, foot drop, artery and/or tissue damage, fracture, VTE, leg length discrepancy, dislocation, need for hip precautions, continued pain and expected post-operative course. Patient would like to proceed with a right ANA MARIA. I did offer him a walker so that he does not fall he feels he is confident enough with a cane that he does not need it. he should not take any Etodolac or NSAIDs 7 days prior to surgery. He should also stop taking the Methotrexate 2 weeks prior to surgery as well. Due to the severity of the hip as the femoral head has collapsed we will order a stat/urgent CT scan right hip with MAKOplasty for evaluation and templating of right total hip arthroplasty. we will get him scheduled for surgery for February 23. He should avoid picking up any heavy weight and be careful when bending o shirin. Follow up after surgery for post-op or sooner if pain, swelling, numbness or associated symptoms, or concerns develop. All questions answered. Patient in agreement of plan. 02/08/25 1143 <Electronically signed by Too Latham DO> Date Too Latham DO I have examined the patient and the H&P has been reviewed. There are no clinical changes since date of exam.
--- NOTE | 2025-02-23 10:30 | FEM._PTH ---
PATIENT: ETHAN TURNER LOC: [facility] [place] U#:[id number] AGE/SX: 59/M ROOM: RE02/23/[address]: Dr. Too Latham DO : 1965 BED: DIS: 02/23/2025 SPEC #: [id number] RECD: 02/23/25 14:54 STATUS: BECKA REHolger #: [id number] BAY: 02/23/25 10:[address]: Too Latham DEPT: SURGICAL PATHOLOGY RECD BY: Keenan Scales ENTERED: 02/23/25 15:16 SP TYPE: FEM HEAD OTHR DR: Dr. Vinh Aguilar MD Tissues: A - Hip, NOS Procedures: Decalcification bone/plaque Surgery Specimen Level III HEADER OPERATION: Right total hip replacement robotic arm assist PRE-OP DIAGNOSIS: AVN of femur, rheumatoid arthritis TISSUE SUBMITTED: A- Femur head, bone and soft tissue, right hip MICROSCOPIC DIAGNOSIS A. Right femoral head, total arthroplasty: * Articular bone with reactive/degenerative changes. * Focal necrosis with peripheral palisading, multinucleated giant cells, and bone destruction, consistent with rheumatoid nodule. MICROSCOPIC DESCRIPTION Slides are reviewed. GROSS DESCRIPTION A. Received in formalin in a container labeled with the patient's name, date of , and femur head, bone + soft tissue R hip is a firm and irregular femoral head measuring 5.0 x 5.0 x 4.3 cm with minimal attached femoral neck measuring approximately 0.5 cm in length with a diameter of 3.8 cm. The resection margin is smooth and firm. The cortical surface is pitted and granular with smooth eburnation, and exhibits an irregular shape with a sloping and nodular appearance. It is quadrisected to reveal firm and focally hemorrhagic surfaces. Received in the same container are multiple red-castro bone curettings with blood measuring approximately 4 x 4 x 1 cm in aggregate. Rig Builder sections are submitted in A1 following decalcification (including sloped area of cortical surface and separate soft tissue). Additional sections are submitted in A2 on 03-01-2025 per pathologist request (including cortical surface x2 and separate soft tissue). [facility] 02-23-2025 CPT:91076,80684
[2025-02-23] MEDS: dexAMETHasone 10 MG/ML Vial IV (11:00)
[2025-02-23] MEDS: Cefazolin 2 GM in 0.9% Normal Saline (100mL Bag) 100 ML IV ×2 (11:00→15:39)
--- NOTE | 2025-02-23 11:09 | PCM.HP.BLA ---
History and Physical Date of Admission: 02/23/25 [facility] Medical Records Department [address] [place] [address] History & Physical Exam 02/23/25 1020 MR#: [id number] Acct: [id number] Name: ETHAN TURNER Rep #: [id number] : 1965 59 From: Too Latham DO PCP: Dr. Vinh Aguilar MD Status: [facility] Location: [place] [address] History and Physical Date of Admission: 02/23/25 [facility] [address] [place] [address] OFFICE VISIT Date of Service: 02/08/25MR#: [id number] Acct: [id number] Name: ETHAN TURNER Rep #: [id number] : 1965 Provider: Dr. Too Latham DO Age/Sex: 59/M Location: [facility] [place] Status: Signed Intake Vital Signs 11/04/2514:56 01/11/2510:47 Height 5 ft 9.5 in 5 ft 9 in Intake Visit Reasons: left hip Chief Complaint: 6 week post op left hip Accompanied by: Is patient in pain?: No Allergies No Known Allergies Allergy (Verified 02/08/25 10:52) Medications ?Medication ?Instructions ?Recorded ?Confirmed ?Type gemfibrozil 600 mg tablet 600 mg PO BIDAC 01/08/18 02/08/25 History omeprazole 40 mg capsule,delayed 40 mg PO QDAY 07/27/24 02/08/25 History release valsartan 320 1 tab PO QDAY 07/27/24 02/08/25 History mg-hydrochlorothiazide 25 mg tablet acetaminophen 500 mg tablet 1,000 mg (2 x 500 mg) PO Q6H #100 12/29/24 02/08/25 Rx tabs etodolac 400 mg tablet 400 mg PO BID 02/08/25 02/08/25 History folic acid 1 mg tablet 1 mg PO QDAY 02/08/25 02/08/25 History methotrexate sodium 15 mg tablet 25 mg PO QWEEK 02/08/25 02/08/25 History PFSH Medical History Wears glasses Colonoscopy planned Gastric reflux History of stress test Former smoker Surgical History History of total left hip replacement Family History Mother Heart disease DiabetesFather Heart disease Social History household members: spouse Smoking Status: Former smoker alcohol intake: current alcohol intake frequency: holidays/special occasions only HPI left hip Details: This documentation accurately reflects the service provided and the decisions made by me, Dr. Too Latham, DO 02/08/25 0810. Part of today?s visit was documented by Kimberly Ariza ATC, acting as scribe. ETHAN TURNER is a 59 year old M here today for s/p left total hip arthroplasty DOS 12/29/2024. Patient denies any pain in the left hip and states he is doing well after surgery. He ambulates with a cane today. Patient states the right hip is bothering him and he states since surgery it has gotten worse. He states he can barely put any weight on it and physical therapy seems to be aggravating it more. He describes the pain in the groin and he will feel the pain in the back of the hip and into the lumbar spine. He denies any numbness/tingling down the leg. He had an injection with the [facility] in the hip about a year ago and he didn't get any relief from it. He denies any prior surgery to the right hip. Ortho Exam General General: Yes no acute distress and Yes well groomed Neurologic: Yes alert and Yes oriented x3 Psychologic: Yes reasonable and appropriate Right Hip Skin: Yes CDI, No Ecchymosis, No soft tissue swelling and No Erythema HIP: good sensation in lower leg No gross motor or sensory deficits Groin pain with hip range of motion He is able to ambulate with a cane IR -10 ER 10 Left Hip Skin/Wound: Yes CDI, No Ecchymosis, No soft tissue swelling and No Erythema Hip: Absent eccymosis, soft tissue swelling or erythema HIP: good sensation in lower leg Head: Normocephalic Atraumatic Chest: symmetrical rise, non-labored breathing, no audible wheeze Abdomen: no guarding, non-rigid Head: Normocephalic Atraumatic Chest: symmetrical rise, non-labored breathing, no audible wheeze Abdomen: no guarding, non-rigid Supplemental Info 02/08/2025 x-ray bilateral hips: Status post left total hip arthroplasty with good interfaces and position; right hip has severe end-stage arthrosis with flattening of the femoral head, x-ray last 12/29/2024 left total hip arthroplasty: Dr. Latham 07/27/2024 x-ray right knee: Advanced knee arthrosis there is subluxation of the tibia laterally Advanced knee arthrosis there is subluxation of the tibia laterally advanced varus deformity 07/27/2024 x-ray left knee: Advanced knee arthrosis there is subluxation of the tibia laterally advanced varus deformity 06/01/2024 x-ray pelvis: Advanced bilateral hip arthrosis [id number] with bony erosion large cystic changes of the femoral head and acetabulum Coding Level of Care Code Off vis,est,level 4 Diagnoses Avascular necrosis of right femur M87.051 Laterality: right Rheumatoid arthritis involving both hips with positive rheumatoid factor M05.751; M05.752 Rheumatoid arthritis location: hip Rheumatoid factor presence: with rheumatoid factor Laterality: bilateral Assessment and Plan Assessment and Plan (1) AVN of femur: Status: Acute Qualifiers: Laterality: right Qualified Code(s): M87.051 - Idiopathic aseptic necrosis of right femur (2) Rheumatoid arthritis: Status: Acute Qualifiers: Rheumatoid arthritis location: hip Rheumatoid factor presence: with rheumatoid factor Laterality: bilateral Qualified Code(s): M05.751 - Rheumatoid arthritis with rheumatoid factor of right hip without organ or systems involvement; M05.752 - Rheumatoid arthritis with rheumatoid factor of left hip without organ or systems involvement Orders: Orders Extremity Lower without Contra Today M16.11 - Unilateral primary osteoarthritis, right hip Referrals Physical Therapy Referral M16.11 - Unilateral primary osteoarthritis, right hip Plan Obtained and reviewed x-rays of both of the hips. Explained that his right hip does have severe arthritis and he has developed collapse of his femoral head. He would like to proceed with total hip arthroplasty of the right hip. recommend he should stop physical therapy for the left hip as it is making his right hip worse. Risks, benefits and alternatives of surgery reviewed including but not limited to bleeding, infection, nerve, foot drop, artery and/or tissue damage, fracture, VTE, leg length discrepancy, dislocation, need for hip precautions, continued pain and expected post-operative course. Patient would like to proceed with a right ANA MARIA. I did offer him a walker so that he does not fall he feels he is confident enough with a cane that he does not need it. he should not take any Etodolac or NSAIDs 7 days prior to surgery. He should also stop taking the Methotrexate 2 weeks prior to surgery as well. Due to the severity of the hip as the femoral head has collapsed we will order a stat/urgent CT scan right hip with MAKOplasty for evaluation and templating of right total hip arthroplasty. we will get him scheduled for surgery for February 23. He should avoid picking up any heavy weight and be careful when bending over. Follow up after surgery for post-op or sooner if pain, swelling, numbness or associated symptoms, or concerns develop. All questions answered. Patient in agreement of plan. I have examined the patient and the H&P has been reviewed. There are no clinical changes since date of exam.
[2025-02-23] MEDS: TRANEXAMIC ACID 2,000 MG in 0.9% Normal Saline (100mL Bag) 100 ML 660 MG IV (11:15)
--- NOTE | 2025-02-23 13:22 | PCM.OPRPT ---
Problems Associated Problem List Diagnoses (1) Other acute postprocedural pain: Operative Report (Standard) Operative Information Date of Procedure: 02/23/25 Pre-Operative Diagnosis: Right hip DJD/AVN Post-Operative Diagnosis: Same Surgery/Procedure Performed: Robotic assisted right total hip arthroplasty field clerk: Yes Purchase Analyst: Moshe Chen Tasks completed by dietetic assistant: Opening & closing, Removing tissue, Implanting device and Retracting Additional customer marketing assistant?: No Type of Anesthesia: Spinal RN Documented Start/Stop Times: Operation Date: 02/23/25 10:30 Case Time Into Pre-Op 02/23/25 08:10 Anesthesia Start 02/23/25 11:10 Into Room 02/23/25 11:10 Procedure Start 02/23/25 11:40 Procedure End 02/23/25 13:30 Anesthesia End 02/23/25 13:36 Out of Room 02/23/25 13:36 Into Recovery 02/23/25 13:40 Out of Recovery 02/23/25 14:18 Into Phase II Recovery 02/23/25 14:20 Procedure Start Time: 11:40 Procedure Stop Time: 13:30 Select all DRAINS/GRAFTS/IMPLANTS that apply: Prosthetic device Prosthetic device details: Yogesh Estimated Blood Loss: 125 Specimen collected: Yes Description of specimen(s) removed: Femoral head Description of surgery: Preoperative diagnosis: Right hip DJD Postoperative diagnosis: Same Procedure: CT-guided Makoplasty assisted right total hip arthroplasty Implants: Yogesh Accolade II stem size 6, 127 degree neck angle 0 head neck length 52 mm Trident II acetabular shell with 30mm cancellous screw 36 mm ceramic head, 10 degree Trident X3 polyethylene insert. Anesthesia: Spinal EBL: 125 cc Complications: None Condition: Stable to PACU Deputy Jailer Moshe Chen. My physician customer marketing assistant was a vital part of this case. He was important in appropriate retraction during the case, and protection of soft tissues during procedure. His intimate knowledge of the case and my steps aided in safe and expedient completion of the procedure as well as appropriate position of the extremity during the case. He was also vital in assisting with closure under my direct supervision. Indication for procedure: This is a 59-year-old male who has had long-standing arthrosis of the hip as well as AVN of the femoral head who has failed conservative treatment and wished to undergo total hip arthroplasty. We did discuss operative versus nonoperative intervention including risks of bleeding, infection , nerve artery tissue damage, need for further surgery, fracture, leg length discrepancy dislocation blood clot and need for postoperative physical therapy and postoperative expectations. An informed consent was signed. Procedure: Patient was met in the preoperative holding area once again the operative extremity was identified by both patient and physician and was marked. Patient was met by anesthesia . Anesthesia was started. patient was then positioned in the lateral decubitus position on a well-padded pegboard with an axillary roll. All bony prominences were checked and padded. The patient was prepped and draped in the usual sterile fashion. A timeout was called to ensure the proper patient procedure and extremity were being contemplated. Anatomic landmarks were palpated and marked for a standard posterior lateral approach. Prior to this the ASIS was palpated and 3 fingerbreadths proximal to this 3 pins were placed at a 45 degree angle into the iliac crest with good purchase, stab incisions were made with a 15 blade into the skin prior to placement. The Makoplasty array was then secured. A 10 blade scalpel was used to make a posterior incision through the skin and subcutaneous tissue. retractors were used and electrocautery was used to maintain meticulous hemostasis and dissect full-thickness flaps until the gluteal fascia was reached. The gluteal fascia was incised in line with the gluteal fibers. The bursal tissue was then freed from the underside and a Charnley retractor was placed. The femoral trochanteric checkpoint was placed and leg length was assessed using the trochanteric checkpoint and an EKG lead that was placed on the knee prior to prepping the leg .the fat pad was then elevated off of the external rotators with electrocautery and the external rotators were dissected off of the greater trochanter including the piriformis and were tagged with #1 Ethibond for later repair. The joint capsule opened with posterior trapdoor technique. The hip was surgically dislocated. The measurement on the preoperative CT from the top of the lesser trochanter to the femoral neck cut was marked Melchorhmann was placed around the lesser trochanter. A neck cutting guide was used to mary kate the neck with a Bovie and an oscillating saw was used complete the femoral neck cut. The femoral head was then removed and sized. We then turned our attention to the acetabulum. A Bovie was used to make a perforation in the anterior joint capsule and a Nayak retractor was placed this was repeated in the 6 o'clock position and a wide jackie was placed there. With a long handled knife the labral and pulvinar tissue were removed. We then registered the acetabulum with the pointing array and confirmed our landmarks. Once the socket was thoroughly prepared and labral tissue and pulvinar was removed we single reamed with the robotic arm. We then used the robotic arm to position the acetabular implant and impacted it into place under robotic guidance. We then proceeded to place a posterior superior screw by drilling first measuring and inserting the screw. We then inserted a trial liner. And turned our attention back to the femur at this point a femoral elevator was used. As well as a pointed wide Hohmann around the lesser trochanter and a Hohmann to help retract the gluteus medius. A box chisel was used to remove excess lateral neck followed by a canal finder and a lateralizing reamer. This was followed by sequential broaches. Attention was made of the version within the canal based on preoperative templating. Once the final broach was seated we then trialed reduced the hip it was determined that a 127 degree neck angle with a 0 neck length was the appropriate size. We then checked stability with shuck testing as well as flexion and internal rotation. then proceeded with hip extension and checked leg lengths at the knees and heels as well as with the trochanteric checkpoint and knee EKG lead. At this point trials were removed. A liner was inserted to the cup. The femoral stem was inserted. We re-trialed and then proceeded to impact the femoral head onto the Lenin taper. We then surgically reduce the hip check stability again and leg lengths and were satisfied. Betadine rinse was allowed to sit for 5 minutes while everyone changed their gloves. Thorough irrigation was performed. Followed by closure of the external rotators with #2 FiberWire followed by closure of gluteal fascia with #1 Ethibond. 0 Vicryl fat stitches and 2-0 Vicryl subcutaneous stitches and rex in the skin. [place] were placed in the skin pin sites over the iliac crest and dressed with a Mepilex dressing. The main incision was dressed with a Mepilex ag dressing and an abduction pillow was placed. Patient tolerated the procedure well there was no intraoperative complications all counts were correct and the patient was brought back to the PACU in stable condition Surgical Findings: AVN hip Complications Complications: No
--- NOTE | 2025-02-23 13:27 | EX.PCM.DISCH ---
Discharge Instructions Diet Discharge Diet: No restrictions Dressing / Incision Call your doctor if you observe: Shortness of breath and Chest pain Additional Dressing/Incision Instructions:: Do not shower for 72hrs. May Begin daily showering with warm water antibacterial soap postop day #3( 72hrs Post-operatively) and then daily. Leave the dressing on for 72 hours postoperatively then remove prior to first shower and change dressing daily after this until no drainage for 2 consecutive days then may leave open to air. If you decide not shower on Saturday and wish to sponge bath only, then may leave dressing undisturbed for up to 1 week, but must remove prior to first shower. Do not submerge for 3 weeks. If not showering daily after the initial dressing is removed you must clean incision and change dressing daily after the dressing comes off, must come off by 7 days postop. Do not allow animals near the incision area. Keep clean. Follow hip precautions that were reviewed in hospital. Wear compression stockings, may remove at night. Start physical therapy as directed in hospital. Follow prescriptions instructions do not take any other pain medication or differ dosing without consulting your physician. Do not take oral NSAIDs until blood thinner has been completed , then may begin the day after completion if needed . Call Dr. Latham's office with any concerns. Follow Up Care Please Follow Up With: Too Latham DO When: 2 weeks Test Results: Test results from this visit will be discussed in further detail at your follow-up appointment, if applicable. Discharge Plan Admission Primary Reason for Your Visit: Right total hip arthroplasty Attending Provider: Too Latham Primary Care Provider: Vinh Aguilar Instructions Print Language: Frisian Discharge Orders/Prescriptions Prescriptions: New acetaminophen 500 mg tablet 1,000 mg PO Q6H Qty: 90 0RF cephalexin 500 mg capsule 1,000 mg PO Q8H Qty: 4 0RF Rx Instructions: Take 2 tabs before you go to bed and 2 tabs after 5 AM morning after surgery when you wake up Eliquis 2.5 mg tablet 2.5 mg PO BID Qty: 42 0RF Rx Instructions: Begin morning after surgery. oxycodone 5 mg tablet 5 - 10 mg PO Q4H PRN (Reason: pain) 7 Days Qty: 60 0RF Continued valsartan-hydrochlorothiazide 320-25 mg tablet 1 tab PO QDAY omeprazole 40 mg capsule,delayed release(DR/EC) 40 mg PO QDAY folic acid 1 mg tablet 1 mg PO BID gemfibrozil 600 MG tablet 600 mg PO BIDAC omega 0-vzl-fow-fish oil [Fish Oil] 1,200 (144-216) mg capsule 1 cap PO DAILY cholecalciferol (vitamin D3) [Vitamin D3] 25 mcg (1,000 unit) tablet 25 mcg PO DAILY Held etodolac 400 mg tablet 400 mg PO BID Hold Instructions: May resume after completion of blood thinner if needed methotrexate sodium 15 mg tablet 25 mg PO QWEEK Hold Instructions: Resume on 03/16/25. Rx Instructions: 8 tablets every Saturday acetaminophen [8 Hour Pain Reliever] 650 mg tablet extended release 1,300 mg PO Q12H PRN (Reason: pain) Hold Instructions: Duplicate Referrals / Follow Up: Vinh Aguilar MD [Primary Care Provider] - Disposition Disposition (needs filled in before D/C Order can be placed): Home, Self Care
--- NOTE | 2025-02-23 13:44 | PCM.POST.ANE ---
Anesthesia: Postop Eval I Current Vital Signs Temperature: 97.6 F Pulse Rate: 87 Blood Pressure: 107/73 Respiratory Rate: 16 Pulse Ox: 96 Oxygen Delivery Method: Room Air Assessment Airway patent: Yes Spontaneous unlabored respirations: Yes Mental status: Awake and Calm nausea: No Vomiting: No Anesthesia Complication: No Fluid Hydration Crystalloid volume administer (ml): 1,800 Total IV fluid infused: 1,800 Progress Note Anesthesia document: Postop Eval 1 completed: Yes
--- NOTE | 2025-02-23 13:50 | RAD_ITS ---
PROCEDURE: HIP MIN 2 VIEWS (PORTABLE) 02/23/2025 REASON FOR EXAM: POSTOP PACU TECHNIQUE: Two views right hip FINDINGS: Status post right hip replacement appears intact and anatomic. No fracture or dislocation. Overlying skin rex and soft tissue air. Left hip replacement again noted. RAD/Hip Min 2 Views (Portable) IMPRESSION: Status post right hip replacement appears intact and anatomic. No fracture or d islocation. Overlying skin rex and soft tissue air. Reading Location: [id number]
--- NOTE | 2025-02-23 14:02 | POSTOPAN2_ITS ---
Anesthesia Postop Eval I Sum Postop Eval Completion status Anesthesia document: Postop Eval 1 completed: Yes Anesthesia Postop Eval I Summary Anesthesia Postop Eval I Summary: Anesthesia Postop Eval I: Assessment Summary Airway patent Yes 02/23/25 13:44 PERCUSSION [email or web address] Spontaneous unlabored Yes 02/23/25 13:44 PERCUSSION [email or web address] respirations Mental status Awake,Calm 02/23/25 13:44 PERCUSSION [email or web address] nausea No 02/23/25 13:44 PERCUSSION [email or web address] Vomiting No 02/23/25 13:44 PERCUSSION [email or web address] Anesthesia Postop Eval I: Fluid Summary Crystalloid volume administer 1,800 02/23/25 13:44 PERCUSSION [email or web address] (ml) Colloids volume administered ( ml) Blood Product volume administered (ml) Total IV fluid infused 1,800 02/23/25 13:44 PERCUSSION [email or web address] Anesthesia Postop Eval I: Summary Notes Anesthesia Complication No 02/23/25 13:44 PERCUSSION [email or web address] Anesthesia Complication Comment: Post-operative progress note Anesthesia: Postop Eval II Evaluation Mental status: Awake and Calm Pain Level: 4 nausea: No Vomiting: No Complications Anesthesia Complication: No
--- NOTE | 2025-02-23 14:02 | PCM.POSTANE2 ---
Anesthesia Postop Eval I Sum Postop Eval Completion status Anesthesia document: Postop Eval 1 completed: Yes Anesthesia Postop Eval I Summary Anesthesia Postop Eval I Summary: Anesthesia Postop Eval I: Assessment Summary Airway patent Yes 02/23/25 13:44 BOILING [email or web address] [email or web address] Spontaneous unlabored Yes 02/23/25 13:44 BOILING [email or web address] [email or web address] respirations Mental status Awake,Calm 02/23/25 13:44 BOILING [email or web address] [email or web address] nausea No 02/23/25 13:44 BOILING HOUSE HAND.[email or web address] Vomiting No 02/23/25 13:44 BOILING [email or web address] [email or web address] Anesthesia Postop Eval I: Fluid Summary Crystalloid volume administer 1,800 02/23/25 13:44 BOILING [email or web address] [email or web address] (ml) Colloids volume administered ( ml) Blood Product volume administered (ml) Total IV fluid infused 1,800 02/23/25 13:44 BOILING HOUSE [email or web address] Anesthesia Postop Eval I: Summary Notes Anesthesia Complication No 02/23/25 13:44 BOILING HOUSE [email or web address] Anesthesia Complication Comment: Post-operative progress note Anesthesia: Postop Eval II Evaluation Mental status: Awake and Calm Pain Level: 4 nausea: No Vomiting: No Complications Anesthesia Complication: No
== END 2025-02-23 17:30 | disposition home or self-care (01) ==
LOC: SDC 08:02 → AC 08:03
PROVIDERS: PCP Internal Medicine; Referring Provider Orthopaedic Surgery; Visit Provider Orthopaedic Surgery
PROC: 8E0Y0CZ Robotic Assisted Procedure of Lower Extremity, Open Approach (ICD-10-PCS; CPT 27130; principal; 2025-02-23 10:00)
DX: M16.11 Unilateral primary osteoarthritis, right hip (principal); M05.751 Rheumatoid arthritis with rheumatoid factor of right hip without organ or systems involvement; M05.752 Rheumatoid arthritis with rheumatoid factor of left hip without organ or systems involvement; M87.051 Idiopathic aseptic necrosis of right femur; G89.18 Other acute postprocedural pain; Z87.891 Personal history of nicotine dependence; K21.9 Gastro-esophageal reflux disease without esophagitis; Z96.642 Presence of left artificial hip joint; I10 Essential (primary) hypertension; Z79.899 Other long term (current) drug therapy; E66.9 Obesity, unspecified
CPT/HCPCS: 27130; S2900; 01214; 36415; 73502; 86850; 86900; 86901; 88304; 88311; 97162; C1713; C1776; J2405; J3475

== ENCOUNTER 2025-04-01 11:00 | Outpatient (RCR) | payer BC, SELFPAY ==
--- NOTE | 2025-03-04 16:28 | HP.PTEVAL_ITS ---
Patient's Visit Information Visit Information Visit Information: ETHAN TURNER is a 59 year old M referred to Physical Therapy by Dr. Too Latham DO with a diagnosis of UNILATERAL PRIMARY OSTEOARTHRITIS ,LEFT HIP. Date of Evaluation: 03/04/25 Physical Therapist: Simone Mayers PT, Cert MDT, OCS Visit Plan Frequency: 2x /Week Duration: 6 Weeks Plan: s/p RIGHT ANA MARIA WITH POSTERIOR LATERAL HIP PRECAUTIONS Subjective Subjective: This 59 y/o male presents to physical therapy for right ANA MARIA on 02/23/[address] Latham at [facility]. Patient was d/c DOS. Patient did posterior lateral with hip precautions.Patient was d/c with FWW with WBAT RLE. Patient recently underwent s/p left ANA MARIA December 24. Denies paresthesia/tingling . Min pain. Patient sleeping in bed. Patient denies paresthesia/tingling. Bowel/bladder -. Patient sleeping okay. Patient stopped pain medication. Patient lives 1 story with 2 steps with rails. Tub shower set up . Patient is dressing. Patient is able to bathing. Patient spouse does cooking. Patient condition affects QOL and function and RTW. Patient goals to return to prior level of function and job. 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 Right Hip: Pain Intensity (Out of 10): 4 Pain Intensity Range: 10 Objective Objective: POSTURE: mild forward posture GAIT: ambulates with fww with WBAT RLE reciprocal pattern BALANCE: fww + with fww SKIN: incision well approximate rex intact along with dressing AROM: supine flexion hip 60 degrees ,knee flexion 0-90 degrees ,hip abduction 20 degrees MMT: ( peak force) hip flexion 5.3 ,hip extension 0 ,quads 12.7 ,hamstrings 9.8 ,ankle 5/5 STAIRS: one step at time [facility] rail Balance/Special Test Scores Lower Extremity Functional Score: 26 TUG Test Time Seconds: 23.25 WOMAC Total Score: 67 WOMAC Percentatge: 30.2100 Goals Goal 1:: Patient to be I with HEP for ANA MARIA Goal Time Frame: 4-6 Weeks Goal 2:: Patient to normalize gait pattern with no device Goal Time Frame: 4-6 Weeks Goal 3:: Patient to improve peak force quads/hams/hip by 10-15# to improve gait Goal Time Frame: 4-6 Weeks Goal 4:: Patient to improve TUG score under 12 sec to improve gait Goal Time Frame: 4-6 Weeks Goal 5:: Patient to improve LFES score by 10 points to improve QOL and function Goal Time Frame: 4-6 Weeks Goal 6:: Patient to improve ROM hip by 15 -20 degrees to improve gait Goal Time Frame: 4-6 Weeks Rehabilitation Potential Physical Therapy Diagnosis: This patient underwent s/p left ANA MARIA with posterior lateral hip precautions with WBAT with walker ,with decrease ROM ,weakness right hip/knee ,balance and stairs impairs ADLs and RTW thus benefit from skilled PT Rehabilitation Potential: Good Anticipated Interventions Patient/Client Instruction: Educate patient on: Condition and Plan of Care For the Purpose of:: To decrease pain, To increase ROM, To improve muscle performance and motor function, To improve ability to perform ADL's, To increase tolerance to activity/condition/position, To improve ability of physical actions for home/community/work/leisure, To improve gait and locomotor functions, To improve health of tissue, To decrease soft tissue restriction, To increase flexibility/ROM, To improve endurance, To improve balance and To improve tolerance to ADL's Therapeutic Exercise to Include: Strength training, Endurance training, Balance training, Gait and locomotor training and Active ROM Comment: QUADS/HAMS/HIP For the Purpose of:: To decrease pain, To increase ROM, To improve muscle performance and motor function, To improve ability to perform ADL's, To increase tolerance to activity/condition/position, To improve ability of physical actions for home/community/work/leisure, To improve gait and locomotor functions, To imp rove health of tissue, To decrease soft tissue restriction, To increase flexibility/ROM, To improve balance and To improve tolerance to ADL's Text: Thank you for the opportunity to evaluate your patient. For Medicare and Medicare HMO plans, please review the plan of care and approve it. It will need to be FAXED BACK to us at [phone] for Medicare purposes. For Medicare only, by signing this I certify the plan of care. Please let me know if there are questions or concerns regarding this plan of care. Physician Signature:_ Date:
--- NOTE | 2025-03-09 15:06 | HP.PTEVAL ---
Patient's Visit Information Visit Information Visit Information: ETHAN TURNER is a 59 year old M referred to Physical Therapy by Dr. Too Latham DO with a diagnosis of UNILATERAL PRIMARY OSTEOARTHRITIS ,LEFT HIP. Date of Evaluation: 03/04/25 Physical Therapist: Simone Mayers PT, Cert MDT, OCS Visit Plan Frequency: 2x /Week Duration: 6 Weeks Plan: s/p RIGHT ANA MARIA WITH POSTERIOR LATERAL HIP PRECAUTIONS 02/23/25 PT INTERVENTIONS ROM HIP ,STRENGTHENING EX'S QUADS/HAMS/HIP ,FUNCTIONAL STRENGTHENING , AND GAIT/BALANCE TRAINING Subjective Subjective: This 59 y/o male presents to physical therapy for right ANA MARIA on 02/23/[address] Latham at [facility]. Patient was d/c DOS. Patient did posterior lateral with hip precautions.Patient was d/c with FWW with WBAT RLE. Patient recently underwent s/p left ANA MARIA December 24. Denies paresthesia/tingling . Min pain. Patient sleeping in bed. Patient denies paresthesia/tingling. Bowel/bladder -. Patient sleeping okay. Patient stopped pain medication. Patient lives 1 story with 2 steps with rails. Tub shower set up . Patient is dressing. Patient is able to bathing. Patient spouse does cooking. Patient condition affects QOL and function and RTW. Patient goals to return to prior level of function and job. 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 Right Hip: Pain Intensity (Out of 10): 4 Pain Intensity Range: 10 Objective Objective: POSTURE: mild forward posture GAIT: ambulates with fww with WBAT RLE reciprocal pattern BALANCE: fww + with fww SKIN: incision well approximate rex intact along with dressing AROM: supine flexion hip 60 degrees ,knee flexion 0-90 degrees ,hip abduction 20 degrees MMT: ( peak force) hip flexion 5.3 ,hip extension 0 ,quads 12.7 ,hamstrings 9.8 ,ankle 5/5 STAIRS: one step at time [facility] rail Balance/Special Test Scores Lower Extremity Functional Score: 26 TUG Test Time Seconds: 23.25 WOMAC Total Score: 67 WOMAC Percentatge: 30.2100 Goals Goal 1:: Patient to be I with HEP for ANA MARIA Goal Time Frame: 4-6 Weeks Goal 2:: Patient to normalize gait pattern with no device Goal Time Frame: 4-6 Weeks Goal 3:: Patient to improve peak force quads/hams/hip by 10-15# to improve gait Goal Time Frame: 4-6 Weeks Goal 4:: Patient to improve TUG score under 12 sec to improve gait Goal Time Frame: 4-6 Weeks Goal 5:: Patient to improve LFES score by 10 points to improve QOL and function Goal Time Frame: 4-6 Weeks Goal 6:: Patient to improve ROM hip by 15 -20 degrees to improve gait Goal Time Frame: 4-6 Weeks Rehabilitation Potential Physical Therapy Diagnosis: This patient underwent s/p left ANA MARIA with posterior lateral hip precautions with WBAT with walker ,with decrease ROM ,weakness right hip/knee ,balance and stairs impairs ADLs and RTW thus benefit from skilled PT Rehabilitation Potential: Good Anticipated Interventions Patient/Client Instruction: Educate patient on: Condition and Plan of Care For the Purpose of:: To decrease pain, To increase ROM, To improve muscle performance and motor function, To improve ability to perform ADL's, To increase tolerance to activity/condition/position, To improve ability of physical actions for home/community/work/leisure, To improve gait and locomotor functions, To improve health of tissue, To decrease soft tissue restriction, To increase flexibility/ROM, To improve endurance, To improve balance and To improve tolerance to ADL's Therapeutic Exercise to Include: Strength training, Endurance training, Balance training, Gait and locomotor training and Active ROM Comment: QUADS/HAMS/HIP For the Purpose of:: To decrease pain, To increase ROM, To improve muscle performance and motor function, To improve ability to perform ADL's, To increase tolerance to activity/condition/position, To improve ability of physical actions for home/community/work/leisure, To improve gait and locomotor functions, To improve health of tissue, To decrease soft tissue restriction, To increase flexibility/ROM, To improve balance and To improve tolerance to ADL's Text: Thank you for the opportunity to evaluate your patient. For Medicare and Medicare HMO plans, please review the plan of care and approve it. It will need to be FAXED BACK to us at [phone] for Medicare purposes. For Medicare only, by signing this I certify the plan of care. Please let me know if there are questions or concerns regarding this plan of care. Physician Signature: Date:
--- NOTE | 2025-04-01 12:01 | HP.PTDCSUM ---
Discharge Summary D/C summary: It has been my pleasure to treat ETHAN TURNER referred by Dr. Too Latham DO, with the diagnosis of UNILATERAL PRIMARY OSTEOARTHRITIS, RIGHT HIP for a total of 10 visit(s). Discharge Date: 04/01/25 Please see the following information for a summary of their discharge status. Subjective Subjective: Doing great No cane Working around house yard Pain Right Hip: Pain Intensity (Out of 10): 0 Overall Improvement % Improvement: 90 Objective Objective/Function: POSTURE: mild forward posture GAIT: reciprocal pattern BALANCE: GOOD SKIN: intact AROM: supine flexion hip 90 degrees ,k ,hip abduction 40 degrees MMT: ( peak force) hip flexion 36.5 ,hip extension 28.4 ,quads 27.8 ,hamstrings 50.9,hip abd 19.3 , hip abduction ankle 5/5 STAIRS: alternating steps with rails Goals Goal 1:: Patient to be I with HEP for ANA MARIA Goal Progress: Goal Met Goal 2:: Patient to normalize gait pattern with no device Goal Progress: Goal Met Goal 3:: Patient to improve peak force quads/hams/hip by 10-15# to improve gait Goal Progress: Goal Met Goal 4:: Patient to improve TUG score under 12 sec to improve gait Goal Progress: Goal Met Goal 5:: Patient to improve LFES score by 10 points to improve QOL and function Goal Progress: Goal Met Goal 6:: Patient to improve ROM hip by 15 -20 degrees to improve gait Goal Progress: Goal Met Plan Plan: D/C TO HEP D/C Information Discharge Comments: d/c HEP d/c sentence: If there are questions or concerns regarding this patient's physical therapy, please feel free to call me at [phone]. Thank you for the referral of this patient. Sincerely, Simone Mayers, PT, Cert MDT, OCS Balance/Gait/Functional tests Balance/Special Test Scores Lower Extremity Functional Score: 61 TUG Test Time Seconds: 23.25 Tug Test: 20-30sec.=variable mobility WOMAC Total Score: 8 WOMAC Percentage: 91.6700 Improvement % Improvement: 90
== END 2025-04-01 19:00 | disposition home or self-care (01) ==
LOC: PT 11:00
PROVIDERS: PCP Internal Medicine; Referring Provider Orthopaedic Surgery; Visit Provider Orthopaedic Surgery
DX: M16.12 Unilateral primary osteoarthritis, left hip (principal); Z96.641 Presence of right artificial hip joint
CPT/HCPCS: 97110; 97162; 97530

== ENCOUNTER → 2025-04-05 | Outpatient (CLI) | payer BC, SELFPAY ==
[2025-04-05 10:30] LABS: Absolute Lymphocyte Count 1.38 X10^3/uL (0.83-4.51); Absolute Neutrophil Count 2.2 X10^3/uL (2.0-7.7); Basophil# 0.05 X10^3/uL; Basophil% 1.2 % (0-1); Eosinophil# 0.06 X10^3/uL; Eosinophils% 1.4 % (0-5); Hematocrit 44.5 % (40-54); Hemoglobin 15.1 g/dL (13.0-16.5); Lymphocyte # 1.38 X10^3/ul (0.83-4.51); Lymphocyte % 33.3 % (19-41); Mean Corp Hgb Conc 33.9 g/dL (32-36); Mean Corpuscular Hgb 32.5 pg (27.0-32.0); Mean Corpuscular Volume 95.7 fL (80-94); Monocyte# 0.46 X10^3/uL; Monocyte% 11.1 % (0-10); NRBC Flagged by Analyzer 0 % (0-5); Neutrophil # 2.19 X10^3/uL (2.7-7.7); Neutrophil % 52.8 % (47-70); Platelet Count 248 K/mm3 (150-450); RBC Distribution Width CV 14.4 % (11.6-14.6); RBC Distribution Width SD 50.1 fl (35.1-43.9); Red Blood Count 4.65 M/mm3 (4.6-6.2); White Blood Count 4.2 K/mm3 (4.4-11.0)
[2025-04-05 11:14] LABS: ALB/GLOB Ratio 1.8 RATIO (0.9-2.4); AST(SGOT) 22 U/L (<=37); Alanine Aminotransfer ALT/SGPT 33 U/L (<=46); Albumin, Serum 4.6 g/dL (3.5-5.0); Alkaline Phosphatase 96 U/L (40-129); Anion Gap 13 (5-15); BUN 21 mg/dL (4-19); BUN/Creat Ratio 28.3 RATIO (10-20); Calcium,Total 9.5 mg/dL (7.6-11.0); Carbon Dioxide 20.9 mmol/L (21.0-32.0); Chloride 104 mmol/L (98-108); Creatinine, Serum 0.73 mg/dL (0.70-1.20); EST Glomerular Filtration Rate 105 (>60); Globulin 2.6 g/dL (2.2-4.2); Glucose 98 mg/dL (70-99); Potassium 4.2 mmol/L (3.3-5.1); Protein, Total 7.1 g/dL (5.9-8.4); Sodium Level 138 mmol/L (133-145)
== END | disposition home or self-care (01) ==
LOC: MTLAB 08:57
PROVIDERS: PCP Internal Medicine; Referring Provider Internal Medicine Rheumatology; Visit Provider Internal Medicine Rheumatology
DX: M06.4 Inflammatory polyarthropathy (principal); M17.0 Bilateral primary osteoarthritis of knee; M16.0 Bilateral primary osteoarthritis of hip; Z79.899 Other long term (current) drug therapy
CPT/HCPCS: 36415; 80053; 85025

== ENCOUNTER → 2025-07-07 | Outpatient (CLI) | payer BC, SELFPAY ==
[2025-07-07 18:35] LABS: AST(SGOT) 16 U/L (<=37); Alanine Aminotransfer ALT/SGPT 23 U/L (<=46); Albumin, Serum 4.5 g/dL (3.4-4.8); Alkaline Phosphatase 67 U/L (40-129); Anion Gap 14 (5-15); BUN 23 mg/dL (4-19); BUN/Creat Ratio 24.2 RATIO (10-20); Calcium,Total 9.4 mg/dL (7.6-11.0); Carbon Dioxide 20.1 mmol/L (21.0-32.0); Chloride 103 mmol/L (98-108); Globulin 2.5 g/dL (2.2-4.2); Glucose 89 mg/dL (70-99); Potassium 4.2 mmol/L (3.3-5.1)
--- OUTSIDE RECORDS SUMMARY | 2025-07-07 18:52 | XMS RPT_ITS | CCD ---
Author Organization [facility] CliniSymd Care Team Providers Care Financial Institution Manager Name Role Phone Vinh Aguilar MD Primary Care Provider WALDEMAR Rutherford Referring Provider WALDEMAR Rutherford Other Provider Dr. Vinh Aguilar Primary Care Provider LOWELL Rick Attending Provider Vinh Aguilar MD Primary Care Provider Celia Robbins MD Primary Care Provider Ruby KOSHER SEALER.DIRECTOR DIGITAL STRATEGY, Noemi M Unavailable Jeff CHEEK, Dr. Justice Primary Care Provider Dr. Mari Prescott MD Attending Provider Dr. Mari Prescott MD Referring Provider Jeff CHEEK, Dr. Justice Referring Provider Dr. Too Latham DO Attending Provider Dr. Too Latham DO Referring Provider Dr. Too Latham DO Other Provider Dr. Vinh Aguilar MD Primary Care Provider Dr. Mari Prescott MD Attending Provider Genie CHEEK, Dr. Guerra Referring Provider Kay CHEEK, Dr. Sadler Attending Provider Jeff CHEEK, Dr. Justice Primary Care Provider Noa DUENAS, Dr. Gage Attending Provider Jeff CHEEK, Dr. Justice Referring Provider Jeff CHEEK, Dr. Justice Primary Care Provider Genie CHEEK, Dr. Guerra Attending Provider Genie CHEEK, Dr. Guerra Referring Provider Jeff CHEEK, Dr. Justice Primary Care Provider Borkaren DO, Dr. Gage Attending Provider Borkaren DO, Dr. Gage Referring Provider Jeff CHEEK, Dr. Justice Primary Care Provider [place] DO, Dr. Gage Attending Provider Jeff CHEEK, Dr. Justice Referring Provider Jeff CHEEK, Dr. Justice Primary Care Provider Toñolinn creek DO, Dr. Gage Attending Provider Borlinn creek DO, Dr. Gage Referring Provider [place] DO, Dr. Gage Other Provider [phone] Vinh Aguilar Primary Care Unavailable Kay, Doroteo Attending Unavailable Vinh Aguilar Primary Care Unavailable AguialrVinh zapata Referring Unavailable BorrusoToo Attending Unavailable Vinh Aguilar Primary Care Unavailable Vellanki, Mari Referring Unavailable Vellanki, Mari Attending Unavailable Aguilar, Vinh Primary Care Unavailable Vellanki, Mari Referring Unavailable Vellanki, Mari Attending Unavailable Aguilar, Vinh Primary Care Unavailable Vellanki, Mari Referring Unavailable Vellanki, Mari Attending Unavailable Borruso, Too Consulting Unavailable Jeff, Vinh Primary Care Unavailable BorrusoToo Referring Unavailable Borruso, Too Attending Unavailable Borruso, Too Consulting Unavailable Vinh Aguilar Primary Care Unavailable Borruso, Too Referring Unavailable Borruso, Too Attending Unavailable Jeff, Vinh Primary Care Unavailable Kay, Elton Attending Unavailable Vinh Aguilar Primary Care Unavailable BorrusoToo Referring Unavailable Borruso, Too Attending Unavailable Aguilar, Vinh Primary Care Unavailable Vellanki, Mari Referring Unavailable Vellanki, Mari Attending Unavailable Aguilar, Vinh Primary Care Unavailable Vellanki, Mari Referring Unavailable Vellanki, Mari Attending Unavailable Aguilar, Vinh Primary Care Unavailable Borruso, Too Referring Unavailable Borruso, Too Attending Unavailable Borruso, Too Referring Unavailable Aguilar, Vinh Primary Care Unavailable Borruso, Too Attending Unavailable Borruso, Too Referring Unavailable Aguilar, Vinh Primary Care Unavailable Borruso, Too Attending Unavailable Aguilar, Vinh Primary Care Unavailable Aguilar, Vinh Referring Unavailable Borruso, Too Attending Unavailable Aguilar, Vinh Primary Care Unavailable Aguilar, Vinh Referring Unavailable Borruso, Too Attending Unavailable Aguilar, Vinh Primary Care Unavailable Doroteo Villanueva Attending Unavailable Aguilar, Vinh Primary Care Unavailable Borruso, Too Referring Unavailable Borruso, Too Attending Unavailable Aguilar, Vinh Primary Care Unavailable Vellanki, Mari Referring Unavailable Vellanki, Mari Attending Unavailable Aguilar, Vinh Primary Care Unavailable Borruso, Too Referring Unavailable Borruso, Too Attending Unavailable Aguilar, Vinh Primary Care Unavailable Aguilar, Vinh Referring Unavailable Borruso, Too Attending Unavailable Aguilar, Vinh Primary Care Unavailable Aguilar, Vinh Referring Unavailable Borruso, Too Attending Unavailable Aguilar, Vinh Primary Care Unavailable Aguilar, Vinh Referring Unavailable Borruso, Too Attending Unavailable Aguilar, Vinh Primary Care Unavailable Aguilar, Vinh Referring Unavailable Borruso, Too Attending Unavailable Aguilar, Vinh Primary Care Unavailable Aguilar, Vinh Referring Unavailable Borruso, Too Attending Unavailable Aguilar, Vinh Primary Care Unavailable Aguilar, Vinh Referring Unavailable Borruso, Too Attending Unavailable Aguilar, Vinh Primary Care Unavailable Aguilar, Vinh Referring Unavailable Borruso, Too Attending Unavailable AGUILAR, VINH Keenan Primary Care Unavailable AGUILAR, VINH Keenan Referring Unavailable AGUILAR, VINH Keenan Primary Care Unavailable AGUILAR, VINH Keenan Attending Unavailable AGUILAR, VINH Keenan Primary Care Unavailable AGUILAR, VINH Keenan Attending Unavailable AGUILAR, VINH Keenan Primary Care Unavailable AGUILAR, VINH Keenan Referring Unavailable Medications Current Medications Medication Drug Class(es) Dates Sig (Normalized) Sig (Original) acetaminophen 500 mg oral tablet (20 sources) Start: 02-23-2025 take 2 tablets by mouth every six hours Acetaminophen 500 mg tablet Active 1000 mg PO EVERY 6 HOURS 90 February 23, 2025 12:00am Start: 02-10-2025 Acetaminophen (8 Hour Pain Reliever) 650 mg tablet extended release Active 1300 mg PO Q12H as needed for pain February 10, 2025 12:00am On Hold: Duplicate Start: 12-29-2024 End: 02-10-2025 take 2 tablets by mouth every six hours Acetaminophen 500 mg tablet Discontinued 1000 mg PO EVERY 6 HOURS 100 1 December 29, 2024 12:00am February 10, 2025 9:05am Start: 09-20-2017 take 1 tablet by morteza th every six hours as needed acetaminophen (TYLENOL) 500 mg tablet Take 1 tablet by mouth every 6 hours as needed for Pain. 0 09/20/2017 Active Comment on above: Take 1 tablet by morteza th every 6 hours as needed for Pain. apixaban 2.5 mg oral tablet (20 sources) Factor Xa Inhibitor Start: 02-23-2025 take 1 tablet by mouth twice daily in the morning Apixaban (Eliquis) 2.5 mg tablet Active 2.5 mg PO TWICE A DAY 42 February 23, 2025 12:00am Begin morning after surgery. Start: 12-29-2024 End: 02-08-2025 take 1 tablet by mouth twice daily in the morning Apixaban (Eliquis) 2.5 mg tablet Discontinued 2.5 mg PO TWICE A DAY 42 0 December 29, 2024 12:00am February 08, 2025 10:52am Begin morning after surgery. cephalexin 500 mg oral capsule (20 sources) Cephalosporin Antibacterial Start: 02-23-2025 Cephalexin 500 mg capsule Active 1000 mg PO Q8H 4 0 February 23, 2025 12:00am Take 2 tabs before you go to bed and 2 tabs after 5 AM morning after surgery when you wake up Start: 12-29-2024 End: 01-11-2025 Cephalexin 500 mg capsule Di scontinued 1500 mg PO Q8H 6 0 December 29, 2024 12:00am January 11, 2025 10:52am Take 3 tabs before you go to bed and 3 tabs after 5 AM morning after surgery when you wake up cholecalciferol 0.025 mg oral tablet (20 sources) Vitamin D Start: 02-10-2025 take 1 tablet by mouth once daily Cholecalciferol (Vitamin D3) (Vitamin D3) 25 mcg (1,000 unit) tablet Active 25 ug PO DAILY February 10, 2025 12:00am Start: 07-27-2024 End: 01-11-2025 take 1 capsule by mouth once daily Cholecalciferol (Vitamin D3) 50 mcg (2,000 unit) capsule Discontinued 50 ug PO daily July 27, 2024 12:00am January 11, 2025 10:52am Unsure dose. High Potency cholecalciferol, vitamin D3, (VITAMIN D3 ORAL) (20 sources) take 5000 [IU] by mouth once daily cholecalciferol, vitamin D3, (VITAMIN D3 ORAL) Take 5,000 Units by mouth once daily. Active take 5000 [IU] by mouth once aletha ly cholecalciferol, vitamin D3, (VITAMIN D3 ORAL) Take 5,000 Units by mouth once daily. 0 Active Comment on above: Take 5,000 Units by mouth once daily. Fish Oil-Dha-Epa (1 source) Start: 01-08-2018 Fish Oil-Dha-Epa Active 1 EACH PO DAILY January 08, 2018 12:00am folic acid 1 mg oral tablet (20 sources) Start: 02-08-2025 take 1 tablet by mouth twice daily Folic Acid 1 mg tablet Active 1 mg PO TWICE A DAY February 08, 2025 12:00am Start: 07-27-2024 End: 01-11-2025 take 1 tablet by mouth once daily Folic Acid 1 mg tablet Discontinued 1 mg PO daily July 27, 2024 12:00am January 11, 2025 10:52am gemfibrozil 600 mg oral tablet (20 sources) Peroxisome Proliferator Receptor alpha Agonist Start: 01-08-2018 End: 04-12-2025 take 1 tablet by mouth twice daily before mealtime Gemfibrozil 600 MG tablet Active 600 mg PO TWICE DAILY BEFORE MEALS January 08, 2018 12:00am Comment on above: Take 1 tablet by morteza th twice daily. hydroCHLOROthiazide 25 mg / valsartan 320 mg oral tablet (20 sources) Thiazide Diuretic, Angiotensin 2 Receptor Jadon Start: 07-14-2022 End: 04-12-2025 Valsartan-Hydroc hlorothiazide 320-25 mg tablet Active 1 {tbl} PO daily July 27, 2024 12:00am Start: 11-14-2021 take 1 tablet by morteza th once daily Valsartan-hydroCHLOROthiazide 320-25 mg per tablet Indications: Essential hypertension Take 1 tablet by mouth once daily. 90 tablet 1 11/14/2021 Active Start: 01-16-2021 End: 08-08-2021 take 1 tablet by mouth once daily Valsartan-hydroCHLOROthiazide 320-25 mg per tablet Indications: Essential hypertension Take 1 tablet by mouth once daily. 90 tablet 1 01/16/2021 08/08/2021 Discontinued Start: 01-08-2018 End: 07-27-2024 Valsartan-Hydrochlorothiazid e 1 EACH tablet Discontinued 1 NMA PO DAILY January 08, 2018 12:00am July 27, 2024 8:20am Start: 01-08-2018 Valsartan-Hydr ochlorothiazide Active 1 EACH PO DAILY January 08, 2018 12:00am Comment on above: Take 1 tablet by morteza once daily. methotrexate 15 mg oral tablet (20 sources) Folate Analog Metabolic Inhibitor Start: take 8 tablets by mouth every week Methotrexate Sodium 15 mg tablet Active 25 mg PO EVERY WEEK February 08, 2025 12:00am On Hold: Resume on 03/16/25. 8 tablets every Saturday Start: 11-26-2024 take 8 tablets by mo [facility] every week methotrexate 2.5 mg tablet take 8 tablets by mouth every week 11/26/2024 Active Start: 07-27-2024 Methotrexate S odium 2.5 mg tablet Active 20 mg PO July 27, 2024 8:52am Start: 07-27-2024 End: 01-11-2025 Methotrexate Sodium 2.5 mg t ablet Discontinued 20 mg PO July 27, 2024 8:52am January 11, 2025 10:53am On Hold: Hold the next 2-week doses mv-min/folic/K1/lycopen/lute in (MEN 50 PLUS MULTIVITAMIN ORAL) (2 sources) take 1 tablet by mouth once daily mv-min/folic/K1/lycopen/lutein (MEN 50 PLUS MULTIVITAMIN ORAL) Take 1 tablet by mouth once daily. Active Coral 0-Zee-Xlc-Fish Oil (Fi sh Oil) 1,200 (144-216) mg capsule (11 sources) [facility] t: 25 Coral 3-Ijq-Enn-Fish Oil (Fi sh Oil) 1,200 (144-216) mg capsule Active 1 NMA PO DAILY February 10, 2025 12:00am Coral-3 Fatty Acids (FISH OI L) 500 mg cap (20 sources) [facility] t: 12 take 1 capsule by mouth once daily Coral-3 Fatty Acids (FISH OIL) 500 mg cap Take 500 mg by mouth once daily. 0 04/25/2012 Active Comment on above: Take 500 mg by mouth once daily. omeprazole 40 mg delayed rel ease oral capsule (20 sources) Proton Pump Inhibitor [facility] t: En d: take 1 capsule by mouth once daily Omeprazole 40 mg capsule,delayed release(DR/EC) Active 40 mg PO daily July 27, 2024 12:00am Start: 11-14-2021 End: 03-07-2023 take 1 capsule by mouth once daily before breakfast omeprazole (PRILOSEC) 20 mg capsule Indications: Gastroesophageal reflux disease without esophagitis TAKE 1 CAPSULE BY MOUTH EVERY DAY BEFORE BREAKFAST 90 capsule 3 11/19/2022 03/07/2023 Discontinued (Changing Therapy/Dosage Form) Start: 08-23-2020 End: 09-11-2021 take 1 capsule by mouth once daily before breakfast omeprazole (PRILOSEC) 20 mg capsule Indications: gastroesophageal reflux disease , heartburn Take 1 capsule by mouth daily before breakfast. 90 capsule 3 08/23/2020 09/11/2021 Discontinued Comment on above: TAKE 1 CAPSULE BY MO UT EVERY DAY BEFORE BREAKFAST Take 1 capsule by mo ut once daily. sulfamethoxazole 800 mg / trimethoprim 160 mg oral tablet (3 sources) Dihydrofolate Reductase Inhibitor Antibacterial, Sulfonamide Antimicrobial Start: 02-24-20 End: 03-02-20 take 1 tablet by mouth twice daily sulfamethoxazole- trimethoprim (BACTRIM DS) 800-160 mg per tablet Indications: Pilonidal cyst Take 1 tablet by mouth twice daily for 7 days. 14 tablet 0 02/23/2022 03/02/2022 Active Comment on above: Take 1 tablet by morteza th twice daily for 7 days. traMADol hydrochloride 50 mg oral tablet (15 sources) Opioid Agonist Start: 12-11-19 take 1 tablet by mouth every eight hours as needed traMADol (ULTRAM) 50 mg tablet Take 50 mg by mouth every 8 hours as needed. 12/11/2024 Active Start: 11-04-2024 End: 01-11-2025 take 1 tablet by mouth every twelve hours as needed for pain Tramadol 50 mg tablet Discontinued 50 mg PO Q12H as needed for pain November 04, 2024 1:00am January 11, 2025 10:53am On Hold: Do not take while on other narcotics that were provided Completed/Discontinued Medications Medication Drug Class(es) Dates Sig (Normalized) Sig (Original) acetaminophen 325 mg / oxyCODONE hydrochloride 5 mg oral tablet (14 sources) Opioid Agonist Start: 01-08-2018 End: 07-27-2024 Oxycodone-Acetamino phen 1 TABLET tablet Discontinued 1 {tbl} PO EVERY 6 HOURS NEEDED as needed for Pain 12 3 0 January 08, 2018 12:00am July 27, 2024 8:20am Calculus of kidney Calculus of kidney Start: 01-08-2018 take 1 tablet by morteza every six hours as needed Oxycodone-Acetaminophen Active 1 TABLET PO EVERY 6 HOURS NEEDED 12 3 January 08, 2018 12:00am betamethasone 3 mg/ml / betamethasone acetate 3 mg/ml injectable suspension (2 sources) Corticosteroid Start: 02-03-2024 End: 02-03-2024 betamethasone acetate-betamethasone sodium phosphate 6 mg injection (CELESTONE) celecoxib 200 mg oral capsule (1 source) Nonsteroidal Anti-inflammatory Drug Start: 03-07-2023 End: 04-02-2023 take 1 capsule by mouth twice daily celecoxib (CELEBREX) 200 mg capsule Indications: Primary osteoarthritis of both knees Take 1 capsule by mouth twice daily. 60 capsule 1 03/07/2023 04/02/2023 Discontinued (Lack of Efficacy) Comment on above: Take 1 capsule by mo [facility] twice daily. chondroitin sulfates 400 mg / glucosamine hydrochloride 500 mg oral capsule (1 source) Start: 06-21-2015 End: 11-29-2021 take 1 capsule by mouth twice daily Womosypzrel-Wlciqjfvj-Zdf C-Mn (GLUCOSAMINE CHONDROITIN MAXSTR) 500-400 mg cap Take 1 capsule by mouth twice daily. 06/21/2015 11/29/2021 Discontinued Collagen (10 sources) End: 12-21-2024 COLLAGEN MISC 2 teaspoonsful once daily. 12/21/2024 Discontinued COLLAGEN MISC 2 teaspoonsful once daily. Active COLLAGEN MISC 2 teaspoonsful once daily. 0 Active diclofenac sodium 75 mg delayed release oral tablet (20 sources) Nonsteroidal Anti-inflammatory Drug Start: 02-03-2024 End: 03-04-2024 take 1 tablet by mouth twice daily for pain diclofenac, EC, (VOLTAREN) 75 mg EC tablet Indications: Primary osteoarthritis of both knees Take 1 tablet by mouth two times a day. FOR PAIN 60 tablet 0 02/03/2024 02/06/2024 Discontinued End: 03-07-2023 diclofenac sodium (VOLTAREN ARTHRITIS PAIN TOPICAL) Apply to affected area as needed. 03/07/2023 Discontinued (Changing Therapy/Dosage Form) End: 03-07-2023 diclofenac sodium (VOLTAREN ARTHRITIS PAIN TOPICAL) Apply to affected area as needed. 0 03/07/2023 Discontinued (Changing Therapy/Dosage Form) diclofenac sodiu m (VOLTAREN ARTHRITIS PAIN TOPICAL) Apply to affected area as needed. 0 Active diclofenac sodiu m (VOLTAREN ARTHRITIS PAIN TOPICAL) Apply to affected area. 0 Active Comment on above: Apply to affected ar ea. Apply to affected ar ea as needed. Take 1 tablet by morteza two times a day. FOR PAIN etodolac 400 mg oral tablet (20 sources) Nonsteroidal Anti-inflammatory Drug Start: End: take 1 tablet by mouth twice daily Etodolac 400 mg tablet Discontinued 400 mg PO TWICE A DAY July 27, 2024 12:00am January 11, 2025 10:52am On Hold: May resume after completion of blood thinner Start: 04-02-2023 End: 02-03-2024 take 1 tablet by mouth every twelve hours as needed etodolac (LODINE) 400 mg tablet Take 1 tablet by mouth two times a day as needed (joint pain). 180 tablet 1 11/20/2023 02/03/2024 Discontinued Start: 11-14-2021 End: 03-07-2023 take 1 tablet by mouth twice daily as needed for pain etodolac (LODINE) 400 mg tablet Indications: Pain in left hip Take 1 tablet by mouth twice daily as needed (joint pain). 60 tablet 3 11/19/2022 03/07/2023 Discontinued (Changing Therapy/Dosage Form) Comment on above: Take 1 tablet by morteza twice daily as needed (joint pain). Take 1 tablet by morteza th two times a day as needed (joint pain). fenofibrate 160 mg oral tablet (1 source) Peroxisome Proliferator Receptor alpha Agonist Start: End: take 1 tablet by mouth once daily Fenofibrate (LOFIBRA) 160 mg tablet Indications: Hypertriglyceridemia Take 1 tablet by mouth once daily. 90 tablet 1 11/29/2021 12/26/2021 Discontinued (Side Effects) Comment on above: Take 1 tablet by morteza once daily. Fish Oil-Dha-Epa 1 EACH capsule (13 sources) Start: 018 End: 025 take 1 capsule by mouth once daily Fish Oil-Dha-Epa 1 EACH capsule Discontinued 1 NMA PO DAILY January 08, 2018 12:00am January 11, 2025 10:52am On Hold: And resume after completion of blood thinner Start: 01-08-2018 take 1 capsule by [facility] once daily Fish Oil-Dha-Epa 1 EACH capsule Active 1 NMA PO DAILY January 08, 2018 12:00am On Hold: And resume after completion of blood thinner Start: 01-08-2018 take 1 capsule by [facility] once daily Fish Oil-Dha-Epa 1 EACH capsule Active 1 NMA PO DAILY January 08, 2018 12:00am 2 ml sodium hyaluronate 10 m g/ml prefilled syringe (4 sources) Start: 12-02-2023 End: 12-02-2023 sodium hyaluronate 20 mg injection (EUFLEXXA) Start: 11-25-2023 End: 11-25-2023 sodium hyaluronate 20 mg inj ection (EUFLEXXA) ibuprofen 800 mg oral tablet (2 sources) Nonsteroidal Anti-inflammatory Drug Start: 05-29-2024 End: 06-08-2024 take 1 tablet by mouth every eight hours as needed for pain ibuprofen (MOTRIN) 800 mg tablet Indications: Primary osteoarthritis of both knees , Primary osteoarthritis of both hips Take 1 tablet by mouth every 8 hours as needed for pain. Take with food. 90 tablet 2 05/29/2024 06/08/2024 Discontinued (Patient chooses alternative therapy) leucovorin 15 mg oral tablet (13 sources) Folate Analog Start: 07-27-2024 End: 01-11-2025 take 1 tablet by mouth once daily Leucovorin Calcium 15 mg tablet Discontinued 15 mg PO DAILY July 27, 2024 12:00am January 11, 2025 10:53am 10 ml lidocaine hydrochloride 10 mg/ml injection (2 sources) Antiarrhythmic, Amide Local Anesthetic Start: 02-03-2024 End: 02-03-2024 lidocaine (PF) 10 mg/mL (1 %) 5 mL injection (XYLOCAINE) meloxicam 15 mg oral tablet (15 sources) Nonsteroidal Anti-inflammatory Drug Start: 01-08-2018 End: 07-27-2024 take 1 tablet by mouth once daily Meloxicam 15 MG tablet Discontinued 15 mg PO DAILY January 08, 2018 12:00am July 27, 2024 8:19am multivit with minerals/lutein (MULTIVITAMIN 50 PLUS ORAL) (20 sources) End: 05-13-2023 take 1 tablet by mouth once daily multivit with minerals/lutein (MULTIVITAMIN 50 PLUS ORAL) Take 1 tablet by mouth once daily. 0 05/13/2023 Discontinued take 1 tablet by mouth once godfrey y multivit with minerals/lutein (MULTIVITAMIN 50 PLUS ORAL) Take 1 tablet by mouth once daily. 0 Active Comment on above: Take 1 tablet by morteza once daily. niacin 500 mg oral tablet (15 sources) Nicotinic Acid Start: 01-08-2018 End: 07-27-2024 take 1 tablet by mouth once daily Niacin 500 MG tablet Discontinued 500 mg PO DAILY January 08, 2018 12:00am July 27, 2024 8:19am Start: 04-25-2012 End: 11-30-2021 take 1 tablet by mouth twice daily niacin 500 mg tablet Take 1 tablet by mouth twice daily. 04/25/2012 11/30/2021 Discontinued Coral-3 Fatty Acids (FISH OIL) 500 mg Cap (9 sources) Start: 04-25-2012 take 1 capsule by mouth once daily Coral-3 Fatty Acids (FISH OIL) 500 mg Cap Take 1 capsule by mouth once daily. 0 04/25/2012 Active Comment on above: Take 1 capsule by [facility] once daily. oxyCODONE hydrochloride 5 mg oral tablet (20 sources) Opioid Agonist Start: 02-23-2025 End: 03-10-2025 take 5-10 mg by mouth every four hours as needed for pain Oxycodone 5 mg tablet Discontinued 5 - 10 mg PO Q4H as needed for pain 60 7 0 February 23, 2025 March 10, 2025 9:09am Other acute postprocedural pain Other acute postprocedural pain Start: 12-29-2024 End: 01-11-2025 take 5-10 mg by mouth every four hours as needed for pain Oxycodone 5 mg tablet Discontinued 5 - 10 mg PO Q4H as needed for pain 60 7 0 December 29, 2024 January 11, 2025 10:53am Other acute postprocedural pain Other acute postprocedural pain pantoprazole 40 mg delayed release oral tablet (3 sources) Proton Pump Inhibitor Start: 03-07-2023 End: 05-13-2023 take 1 tablet by mouth once daily pantoprazole DR (PROTONIX) 40 mg tablet Indications: Gastroesophageal reflux disease, unspecified whether esophagitis present Take 1 tablet by mouth once daily. 30 tablet 1 03/07/2023 05/13/2023 Discontinued Comment on above: Take 1 tablet by [facility] once daily. predniSONE 5 mg oral tablet (16 sources) Start: 11-18-2024 End: 01-11-2025 take 1 tablet by mouth once daily in the morning Prednisone 5 mg tablet Discontinued 5 mg PO EVERY MORNING December 16, 2024 1:00am January 11, 2025 10:53am Start: 05-05-2021 End: 05-17-2021 predniSONE (DELTASONE) 10 mg tablet Indications: Hip pain, acute, left Take 4 tabs daily x 3 days, then 3 tabs x 3 days, 2 tabs x 3 days, then 1 tab x3 days with food. 30 tablet 05/05/2021 05/17/2021 Turmeric extract (10 sources) End: 12-21-2024 take 1000 mg by mouth twice daily TURMERIC ORAL Take 1,000 mg by mouth two times a day. 12/21/2024 Discontinued take 1000 mg by mouth twice godfrey y TURMERIC ORAL Take 1,000 mg by mouth two times a day. Active take 1000 mg by mouth twice godfrey y TURMERIC ORAL Take 1,000 mg by mouth two times a day. 0 Active Problems Active Problems Problem Classification Problem Date Documented Date Episodic/Chronic Disorders of lipid metabolism (20 sources) Hypertriglyceridemia; Translations: [Pure hyperglyceridemia] Onset: 06-21-2015 Resolved: 06-21-2015 Chronic Esophageal disorders (20 sources) Gastroesophageal reflux disease without esophagitis; Translations: [Gastro-esophageal reflux disease without esophagitis] Onset: 05-30-2018 05-30-2018 Chronic Essential hypertension (20 sources) Essential hypertension; Translations: [Essential (primary) hypertension] Onset: 11-24-2007 Resolved: 11-24-2007 09-20-2017 Chronic Immunizations and screening for infectious disease (2 sources) Vaccination needed; Translations: [Encounter for immunization] Onset: 05-21-2025 Episodic Nutritional deficiencies (20 sources) Vitamin D deficiency; Translations: [Vitamin D deficiency, unspecified] Onset: 07-12-2021 07-12-2021 Chronic Osteoarthritis (20 sources) Primary gonarthrosis, bilateral; Translations: [Bilateral primary osteoarthritis of knee] Onset: 03-30-2014 Resolved: 11-30-2021 11-30-2021 Chronic Other aftercare (20 sources) Follow-up status; Translations: [Encounter for other orthopedic aftercare] 01-11-2025 Episodic Other and unspecified benign neoplasm (1 source) Polyp of sigmoid colon; Translations: [Polyp of colon] Episodic Other bone disease and musculoskeletal deformities (20 sources) Avascular necrosis of bone; Translations: [Idiopathic aseptic necrosis of unspecified femur] 02-08-2025 Chronic Other connective tissue disease (1 source) Other symptoms and signs involving the musculoskeletal system; Translations: [Other musculoskeletal symptoms referable to limbs] 05-15-2024 Episodic Other nervous system disorders (20 sources) Acute postoperative pain; Translations: [Other acute postprocedural pain] 12-29-2024 Episodic Other non-traumatic joint disorders (6 sources) Hip pain; Translations: [Pain in left hip] Episodic Other nutritional; endocrine; and metabolic disorders (19 sources) Obesity; Translations: [Obesity, unspecified] Onset: 11-30-2005 10-23-2016 Chronic Other nutritional; endocrine; and metabolic disorders (20 sources) Body mass index 40+ - severely obese; Translations: [Morbid (severe) obesity due to excess calories] Onset: 06-21-2015 02-07-2018 Chronic Other nutritional; endocrine; and metabolic disorders (1 source) Obese class II; Translations: [Obesity, unspecified] Chronic Other skin disorders (1 source) Skin tag; Translations: [Other hypertrophic disorders of the skin] 05-15-2024 Episodic Other upper respiratory disease (20 sources) Allergic rhinitis; Translations: [Other allergic rhinitis] Onset: 08-06-2007 08-06-2007 Chronic Other upper respiratory infections (14 sources) Viral upper respiratory tract infection; Translations: [Acute upper respiratory infection, unspecified] 12-14-2019 Episodic Rheumatoid arthritis and related disease (20 sources) Inflammatory polyarthropathy; Translations: [Inflammatory polyarthropathy] Onset: 06-26-2024 12-22-2024 Chronic Screening and history of mental health and substance abuse codes (2 sources) Encounter for screening for depression; Translations: [Encounter for screening examination for other mental health and behavioral disorders] Onset: 05-21-2025 Episodic Skin and subcutaneous tissue infections (1 source) Pilonidal cyst; Translations: [Pilonidal cyst without abscess] Episodic Spondylosis; intervertebral disc disorders; other back problems (1 source) Tenderness of body structure; Translations: [Dorsalgia, unspecified] 05-05-2021 Episodic Unclassified (20 sources) Osteoarthritis of right hip; Translations: [M16.11 - Unilateral primary osteoarthritis, right hip] Unclassified (1 source) Obesity, Class III, BMI 40-49.9 (morbid obesity) ([facility]); Translations: [Obesity, Class III, BMI 40-49.9 (morbid obesity) ([facility])] Onset: 02-07-2018 Past or Other Problems Problem Classification Problem Date Documented Da te Episodic/Chronic Anal and rectal conditions (16 sources) Perianal abscess; Translations: [Anal abscess] Onset: 05-20-2008 Resolved: 06-30-2010 Episodic Other connective tissue disease (15 sources) Medial epicondylitis; Translations: [Medial epicondylitis, unspecified elbow] Onset: 12-03-2009 Resolved: 11-29-2021 11-29-2021 Episodic Other injuries and conditions due to external causes (20 sources) H/O: vertebral fracture; Translations: [Personal history of (healed) traumatic fracture] Onset: 05-26-2021 05-26-2021 Episodic Other non-traumatic joint disorders (2 sources) Pain in right knee; Translations: [Pain in joint, lower leg] Onset: 07-27-2024 03-07-2023 Episodic Other non-traumatic joint disorders (16 sources) Pain in left knee; Translations: [Pain in joint, lower leg] Onset: 05-17-2014 Resolved: 11-29-2021 11-29-2021 Episodic Other non-traumatic joint disorders (1 source) Pain in right hip; Translations: [Pain in right hip] Onset: 02-08-2025 Episodic Other non-traumatic joint disorders (1 source) Pain in left hip; Translations: [Pain in left hip] Onset: 02-08-2025 Episodic Other screening for suspected conditions (not mental disorders or infectious disease) (16 sources) Patient encounter status; Translations: [Encounter for screening for malignant neoplasm of colon] Onset: 05-21-2024 Episodic Other skin disorders (15 sources) Eruption; Translations: [Rash and other nonspecific skin eruption] Onset: 05-20-2008 Resolved: 11-29-2021 11-29-2021 Episodic Residual codes; unclassified (20 sources) Family history of cancer of colon; Translations: [Family history of malignant neoplasm of digestive organs] Onset: 06-15-2016 06-15-2016 Episodic Results Test Name Value Interpretation Reference Range Facility 25(OH)D3 [facility] 2024 25-hydroxyvitamin D3 [Mass/Vol] 35.6 ng/mL Normal 31.0-80.0 [facility] Comment on above: Order Comment: Speci men Type: BLOOD SPECIMEN Ordering Facility: [facility] Address: [address] [place] [address] Performed By: #### 1 989-3 #### [facility] CLIA [id number] [address] [place] [address] [place] CNOVon 05-21-2025 CNOV Office Visit (INTMWS) MILES TURNER ([id number]) 1965 M CONNER Date Time Provider Department 05/21/25 8:00 AM VINH AGUILAR INTMWS During your visit today, we recorded the following information about you: Pulse Respiration Blood pressure Weight 69/minute 16/minute 126/73 126.5 kg Height 1.753 m Vinh Aguilar MD 05/21/2025 9:10 AM Signed Subjective Miles Turner is a 59 year old male. Patient presents with: Yearly Exam Miles was doing well. He had left total hip, and then right total hip replacements by Dr. Latham which went well. He completed physical therapy. He will resume work next week. His hypertension was controlled. Lipids needed updating. PAST MEDICAL HISTORY Diagnosis Date ALLERGIC RHINITIS NEC Elevated ferritin 05/21/2024 Essential hypertension 11/24/2007 Gastroesophageal reflux disease without esophagitis 05/30/2018 History of compression fracture of spine 05/26/2021 History of tobacco use 30 pack years Hydronephrosis 01/08/2018 mild left Hypertriglyceridemia 06/21/2015 Inflammatory polyarthropathy of multiple sites (HCC) 06/26/2024 Internal hemorrhoids without mention of complication Kidney stone 01/08/2018 left Obesity, Class III, BMI 40-49.9 (morbid obesity) (HCC) 06/21/2015 Primary osteoarthritis of both hips 05/26/2021 Primary osteoarthritis of both knees 03/30/2014 Snoring Thyroid nodule 06/09/2019 Vitamin D deficiency 07/12/2021 PAST SURGICAL HISTORY Procedure Laterality Date COLONOSCOPY FLX DX W/COLLJ SPEC WHEN PFRMD 07/30/2011 repeat due 2015 (FHx) COLONOSCOPY FLX DX W/COLLJ SPEC WHEN PFRMD 07/06/2016 normal - 5 year follow up for family history COLONOSCOPY SCREENING 06/04/2022 . benign polyp, repeat in 5 years based on family history IMAGING GUIDED HIP INJECTION RIGHT 02/14/2024 THYROID BIOPSY US 06/19/2019 TOTAL HIP REPLACEMENT Left 12/29/2024 TOTAL HIP REPLACEMENT Right 02/23/2025 VASECTOMY UNI/BI SPX W/POSTOP SEMEN EXAMS FAMILY HISTORY Problem Relation Age of Onset Heart Mother Cancer Father colon - ? - age 70 Heart Father No Known Problems Sister No Known Problems Brother Colon Cancer Paternal Uncle Social History Tobacco Use Smoking status: Former Current packs/day: 0.00 Average packs/day: 1 pack/day for 30.0 years (30.0 ttl pk-yrs) Types: Cigarettes Start date: 05/14/1979 Quit date: 05/14/2009 Years since quittin.0 Smokeless tobacco: Never Tobacco comments: states smokes cigar occasionally Vaping Use Vaping status: Never Used Substance Use Topics Alcohol use: Yes Alcohol/week: 1.0 standard drink of alcohol Types: 1 Cans of beer per week Drug use: No ALLERGIES No Known Allergies Current Outpatient Medications Medication Sig Valsartan-hydroCHLOR Othiazide 320-25 mg per tablet Take 1 tablet by mouth once daily. omeprazole (PRILOSEC) 40 mg capsule Take 1 capsule by mouth once daily. etodolac (LODINE) 400 mg tablet Take 1 tablet by mouth two times a day. gemfibrozil (LOPID) 600 mg tablet Take 1 tablet by mouth two times a day. methotrexate 2.5 mg tablet take 8 tablets by mouth every week predniSONE (DELTASONE) 5 mg tablet Take 5 mg by mouth every morning. traMADol (ULTRAM) 50 mg tablet Take 50 mg by mouth every 8 hours as needed. mv-min/folic/K1/lyco pen/lutein (MEN 50 PLUS MULTIVITAMIN ORAL) Take 1 tablet by mouth once daily. cholecalciferol, vitamin D3, (VITAMIN D3 ORAL) Take 5,000 Units by mouth once daily. acetaminophen (TYLENOL) 500 mg tablet Take 1 tablet by mouth every 6 hours as needed for Pain. Coral-3 Fatty Acids (FISH OIL) 500 mg cap Take 500 mg by mouth once daily. No current facility-administere d medications for this visit. Review of Systems Constitutional: Negative for fatigue and fever. HENT: Negative for congestion. Eyes: Negative for visual disturbance. Respiratory: Negative for cough and shortness of breath. Cardiovascular: Negative for chest pain, palpitations and leg swelling. Gastrointestinal: Negative for abdominal pain, constipation and diarrhea. Genitourinary: Negative for difficulty urinating and dysuria. Musculoskeletal: Negative for arthralgias and gait problem. Neurological: Negative for dizziness, numbness and headaches. Psychiatric/Behavior al: Negative. Objective BP 126/73 Pulse 69 Resp 16 Ht 175.3 cm (5' 9) Wt 126.5 kg (278 lb 14.1 oz) SpO2 97% BMI 41.18 kg/m? Physical Exam Constitutional: Appearance: He is not ill-appearing. HENT: Head: Normocephalic. Nose: No congestion. Eyes: General: No scleral icterus. Conjunctiva/sclera: Conjunctivae normal. Cardiovascular: Rate and Rhythm: Normal rate and regular rhythm. Pulses: Normal pulses. Heart sounds: No murmur heard. No gallop. Pulmonary: Breath sounds: Normal breath sounds. Abdominal: Palpations: Abdomen is soft. Tenderness: (more content not included)... Normal [facility] Lipid 1996 panelon 5 Cholesterol [Mass/Vol] 204 mg/dL High <200 [facility] Comment on above: Order Comment: Speci men Type: BLOOD SPECIMEN Ordering Facility: [facility] Address: [address] [place] [address] Result Comment: <200 mg/dL, Desirable 200-239 mg/dL, Borderline high >239 mg/dL, High Performed By: #### 2 4331-1 #### [facility] CLIA [id number] [address] [place] [address] [place] Cholesterol in HDL [Mass/Vol] 38 mg/dL Low >39 [facility] Comment on above: Order Comment: Speci men Type: BLOOD SPECIMEN Ordering Facility: [facility] Address: [address] [place] [address] Result Comment: 40-5 9 mg/dL, Acceptable >59 mg/dL, High: Negative risk factor for coronary heart disease <40 mg/dL, Low: Positive risk factor for coronary heart disease Performed By: #### 2 4331-1 #### [facility] CLIA [id number] [address] [place] [address] [place] Cholesterol in LDL [Mass/Vol] 132 mg/dL High <100 [facility] Comment on above: Order Comment: Wendy clark Type: BLOOD SPECIMEN Ordering Facility: [facility] Address: [address] [place] [address] Result Comment: <100 mg/dL, Optimal 100-129 mg/dL, Near optimal/above optimal 130-159 mg/dL, Borderline high 160-189 mg/dL, High >189 mg/dL, Very high Secondary prevention optimal LDL Cholesterol levels are recommended to be <70 mg/dL LDL cholesterol is calculated using the Vasquez-NIH equation. Performed By: #### 2 4331-1 #### [facility] CLIA [id number] [address] [place] [address] STATES [facility] Cholesterol in LDL/Cholesterol in HDL [Mass ratio] 3.47 {ratio} High <2.54 [facility] Comment on above: Order Comment: Wendy clark Type: BLOOD SPECIMEN Ordering Facility: [facility] Address: [address] [place] [address] Result Comment: Refe shalomce: 1. National Cholesterol Education Program ATP III Guideline At-A-Glance Quick Desk Reference: National Heart, Lung, and Blood [place]. National Institutes of Health. 2001: NIH Publication No. 01-3305. 2. An International Atherosclerosis Society position paper: global recommendations for the management of dyslipidemia: executive summary, Atherosclerosis. 2014: 232(2):410-413. Performed By: #### 2 4331-1 #### [facility] CLIA [id number] [address] [place] [address] [place] Cholesterol in VLDL [Mass/Vol] 34 mg/dL High <30 [facility] Comment on above: Order Comment: Wendy amber Type: BLOOD SPECIMEN Ordering Facility: [facility] Address: [address] [place] [address] Performed By: #### 2 4331-1 #### [facility] CLIA [id number] [address] [place] [address] [place] Cholesterol non HDL [Mass/Vol] 166 mg/dL High <130 [facility] Comment on above: Order Comment: Speci men Type: BLOOD SPECIMEN Ordering Facility: [facility] Address: [address] [place] [address] Result Comment: <130 mg/dL, Optimal 130-159 mg/dL, Near optimal/above optimal 160-189 mg/dL, Borderline high 190-219 mg/dL, High >219 mg/dL, Very high Secondary prevention optimal non HDL Cholesterol levels are recommended to be <100 mg/dL Performed By: #### 2 4331-1 #### [facility] CLIA [id number] [address] [place] [address] [place] Cholesterol.total/Choles terol in HDL [Mass ratio] 5.37 {ratio} High <5.10 [facility] Comment on above: Order Comment: Speci men Type: BLOOD SPECIMEN Ordering Facility: [facility] Address: [address] [place] [address] Performed By: #### 2 4331-1 #### [facility] CLIA [id number] [address] [place] [address] [place] FASTING TIME 12 hrs Normal [facility] Comment on above: Order Comment: Speci men Type: BLOOD SPECIMEN Ordering Facility: [facility] Address: [address] [place] [address] Performed By: #### 2 4331-1 #### [facility] CLIA [id number] [address] [place] [address] [place] Triglyceride [Mass/Vol] 190 mg/dL High <150 [facility] Comment on above: Order Comment: Speci men Type: BLOOD SPECIMEN Ordering Facility: [facility] Address: [address] [place] [address] Result Comment: <150 mg/dL, Normal 150-199 mg/dL, Borderline high 200-499 mg/dL, High >499 mg/dL, Very high Performed By: #### 2 4331-1 #### [facility] CLIA [id number] [address] [place] [address] [id number] [address] [place] Orthopedic Visit Reporton Orthopedic Visit Report [facility] [address] [place], [place] [address] OFFICE VISIT Date of Service: 05/10/25 MR#: [id number] Acct: [id number] Name: MILES TURNER Rep #: [id number] : 1965 Provider: Dr. Too Patel so, DO Age/Sex: 59/M Location: [facility] Status: Signed Intake Vital Signs 04/26/25 08:25 05/03/25 08:37 05/10/25 09:04 Height 5 ft 9 in 5 ft 9 in 5 ft 9 in Weight: 270 lb 270 lb 272 lb BMI 39.9 39.9 40.1 Intake Visit Reasons: BL KNEE Chief Complaint: Bilateral knee 3rd euflexxa injection Accompanied by: Self Is patient in pain?: Yes Pain scale (1-10): 3 Allergies No Known Allergies Allergy (Verified 05/10/25 09:05) Medications ???Medication ???Instructions ???Recorded ???Confirmed ???Type gemfibrozil 600 mg tablet 600 mg PO BIDAC 01/08/18 05/10/25 History omeprazole 40 mg capsule,delayed 40 mg PO QDAY 07/27/24 05/10/25 Hi story release valsartan 320 1 tab PO QDAY 07/27/24 05/10/25 Hi story mg-hydrochlorothiazi de 25 mg tablet etodolac 400 mg tablet 400 mg PO BID 02/08/25 05/10/25 Hi story Held on 02/23/25. Instructions: May resume after completion of blood thinner if needed folic acid 1 mg tablet 1 mg PO BID 02/08/25 05/10/25 Hist ory methotrexate sodium 15 mg tablet 25 mg PO QWEEK 02/08/25 05/10/25 H istory Held on 02/23/25. Instructions: Resume on 03/16/25. acetaminophen 650 mg 1,300 mg PO Q12H PRN pain 02/10/25 05/10/25 History tablet,extended release (8 Hour Pain Reliever) Held on 02/23/25. Instructions: Duplicate cholecalciferol (vitamin D3) 25 25 mcg PO DAILY 02/10/25 05/10/25 History mcg (1,000 unit) tablet (Vitamin D3) omega 6-yvb-oda-fish oil 1,200 mg 1 cap PO DAILY 02/10/25 05/10/25 History (144 mg-216 mg) capsule (Fish Oil) acetaminophen 500 mg tablet 1,000 mg (2 x 500 mg) PO Q6H #90 0 02/23/25 05/10/25 Rx tabs apixaban 2.5 mg tablet (Eliquis) 2.5 mg PO BID #42 tabs 02/23/25 Rx cephalexin 500 mg capsule 1,000 mg (2 x 500 mg) PO Q8H #4 05/10/25 Rx caps Have you fallen in the past year?: No PFSH Medical History Shortness of breath on exertion Hypertension Wears glasses Colonoscopy planned Gastric reflux History of stress test Former smoker Surgical History History of total right hip replacement History of total left hip replacement Family History Mother Heart disease Diabetes Father Heart disease Social History household members: spouse Smoking Status: Former smoker alcohol intake: current alcohol intake frequency: holidays/special occasions only HPI BL KNEE Details: This documentation accurately reflects the service provided and the decisions made by me, Dr. Too Latham, DO 05/10/25 0754. Part of today???s visit was documented by Julisa Delarosa MA, acting as scribe. MILES TURNER is a 59 year old M here today for third Euflexxa injection bilateral knee Ortho Exam General General: Yes no acute distress Neurologic: Yes alert and Yes oriented x3 Psychologic: Yes reasonable and appropriate Right Knee Skin/Wound: No erythema, No ecchymosis and No swelling Homans Sign: No Knee ROM: Yes ROM-Extension -20 to 0 (-3) and Yes ROM-Flexion 0-140 (93) Examination: No Med jt line tenderness, No Lat jt line tenderness and No TTP Pes Anserine Stability: NML: Anterior Drawer, NML: Posterior Drawer, NML: Valgus 0, NML: Valgus 30, NML: Varus 0 and NML: Varus 30 Patella Translation: 1 Left Knee Skin/Wound: No ecchymosis, No erythema and No swelling Knee ROM: Yes ROM-Extension -20 to 0 (-3) and Yes ROM-Flexion 0-140 (93) Examination: No med jt line tenderness and No Lat jt line tenderness Stability: NML: Anterior Drawer, NML: Bautista, NML: Posterior Drawer, NML: Valgus 0, NML: Valgus 30, NML: Varus 0 and NML: Varus 30 Patella Translation: 1 KNEE: no effusion varus deformity 2mm medial gapping with valgus stress Office Procedures Euflexxa Procedure Details:: Obtained consent for injection. Under sterile conditions, injected the patients right knee with 20ml Euflexxa injection. The patient tolerated the injection well without any noted complication. Patient should call our office if redness develops, pain worsens or if they have any concerns. Is this Buy Bill?: Yes Euflexxa Procedure Details:: Obtained consent for injection. Under sterile conditions, injected the patients Left knee with 20ml Euflexxa injection. The patient tolerated the injection well without any noted complication. Patient should call our office if redness develop (more content not included)... Normal [facility] Orthopedic Visit Reporton Orthopedic Visit Report [facility] [address] [place] [address] OFFICE VISIT Date of Service: 05/03/25 MR#: [id number] Acct: [id number] Name: MILES TURNER Rep #: [id number] : 1965 Provider: Dr. Too jones DO Age/Sex: 59/M Location: [facility] Status: Signed Intake Vital Signs 04/26/25 08:25 05/03/25 08:37 Height 5 ft 9 in 5 ft 9 in Weight: 270 lb 270 lb BMI 39.9 39.9 Intake Visit Reasons: BL KNEE Chief Complaint: Bilateral knee 2nd euflexxa injection Accompanied by: Is patient in pain?: Yes Pain scale (1-10): 4 Allergies No Known Allergies Allergy (Verified 05/03/25 08:43) Medications ???Medication ???Instructions ???Recorded ???Confirmed ???Type gemfibrozil 600 mg tablet 600 mg PO BIDAC 01/08/18 05/03/25 History omeprazole 40 mg capsule,delayed 40 mg PO QDAY 07/27/24 05/03/25 Hi story release valsartan 320 1 tab PO QDAY 07/27/24 05/03/25 Hi story mg-hydrochlorothiazi de 25 mg tablet etodolac 400 mg tablet 400 mg PO BID 02/08/25 05/03/25 Hi story Held on 02/23/25. Instructions: May resume after completion of blood thinner if needed folic acid 1 mg tablet 1 mg PO BID 02/08/25 05/03/25 Hist ory methotrexate sodium 15 mg tablet 25 mg PO QWEEK 02/08/25 05/03/25 H istory Held on 02/23/25. Instructions: Resume on 03/16/25. acetaminophen 650 mg 1,300 mg PO Q12H PRN pain 02/10/25 05/03/25 History tablet,extended release (8 Hour Pain Reliever) Held on 02/23/25. Instructions: Duplicate cholecalciferol (vitamin D3) 25 25 mcg PO DAILY 02/10/25 05/03/25 History mcg (1,000 unit) tablet (Vitamin D3) omega 6-zxv-asi-fish oil 1,200 mg 1 cap PO DAILY 02/10/25 05/03/25 History (144 mg-216 mg) capsule (Fish Oil) acetaminophen 500 mg tablet 1,000 mg (2 x 500 mg) PO Q6H #90 0 02/23/25 05/03/25 Rx tabs apixaban 2.5 mg tablet (Eliquis) 2.5 mg PO BID #42 tabs 02/23/25 Rx cephalexin 500 mg capsule 1,000 mg (2 x 500 mg) PO Q8H #4 05/03/25 Rx caps Have you fallen in the past year?: No PFSH Medical History Shortness of breath on exertion Hypertension Wears glasses Colonoscopy planned Gastric reflux History of stress test Former smoker Surgical History History of total right hip replacement History of total left hip replacement Family History Mother Heart disease Diabetes Father Heart disease Social History household members: spouse Smoking Status: Former smoker alcohol intake: current alcohol intake frequency: holidays/special occasions only HPI BL KNEE Details: This documentation accurately reflects the service provided and the decisions made by me, Dr. Too Latham, DO 05/03/25 0749. Part of today???s visit was documented by Julisa Delarosa MA, acting as scribe. MILES TURNER is a 59 year old M here today for 2nd Euflexxa bilateral knee injection. Ortho Exam General General: Yes no acute distress Neurologic: Yes alert and Yes oriented x3 Psychologic: Yes reasonable and appropriate Right Knee Skin/Wound: No erythema, No ecchymosis and No swelling Homans Sign: No Knee ROM: Yes ROM-Extension -20 to 0 (-3) and Yes ROM-Flexion 0-140 (93) Examination: No Med jt line tenderness, No Lat jt line tenderness and No TTP Pes Anserine Stability: NML: Anterior Drawer, NML: Posterior Drawer, NML: Valgus 0, NML: Valgus 30, NML: Varus 0 and NML: Varus 30 Patella Translation: 1 Left Knee Skin/Wound: No ecchymosis, No erythema and No swelling Knee ROM: Yes ROM-Extension -20 to 0 (-3) and Yes ROM-Flexion 0-140 (93) Examination: No med jt line tenderness and No Lat jt line tenderness Stability: NML: Anterior Drawer, NML: Bautista, NML: Posterior Drawer, NML: Valgus 0, NML: Valgus 30, NML: Varus 0 and NML: Varus 30 Patella Translation: 1 KNEE: no effusion varus deformity 2mm medial gapping with valgus stress Office Procedures Euflexxa Procedure Details:: Obtained consent for injection. Under sterile conditions, injected the patients right knee with 20ml Euflexxa injection. The patient tolerated the injection well without any noted complication. Patient should call our office if redness develops, pain worsens or if they have any concerns. Is this Buy Bill?: Yes Euflexxa Procedure Details:: Obtained consent for injection. Under sterile conditions, injected the patients left knee with 20ml. The patient tolerated the injection well without any noted complication. Patient should call our office if redness develops, pain worsens or if they have any concerns. Is this Buy (more content not included)... Normal [facility] Orthopedic Visit Reporton Orthopedic Visit Report [facility] [address] [place] [address] [address] [place] [address] OFFICE VISIT Date of Service: 04/26/25 MR#: [id number] Acct: [id number] Name: MILES TURENR Rep #: [id number] : 1965 Provider: Dr. Too jones DO Age/Sex: 59/M Location: [facility] Status: Signed Intake Vital Signs 04/12/25 08:27 04/26/25 08:25 Height 5 ft 9 in 5 ft 9 in Weight: 260 lb 270 lb BMI 38.4 39.9 Intake Visit Reasons: BL KNEES Chief Complaint: Bilateral knee 1st euflexxa injection Accompanied by: Is patient in pain?: No Allergies No Known Allergies Allergy (Verified 04/26/25 08:26) Medications ???Medication ???Instructions ???Recorded ???Confirmed ???Type gemfibrozil 600 mg tablet 600 mg PO BIDAC 01/08/18 04/26/25 History omeprazole 40 mg capsule,delayed 40 mg PO QDAY 07/27/24 04/26/25 Hi story release valsartan 320 1 tab PO QDAY 07/27/24 04/26/25 Hi story mg-hydrochlorothiazi de 25 mg tablet etodolac 400 mg tablet 400 mg PO BID 02/08/25 04/26/25 Hi story Held on 02/23/25. Instructions: May resume after completion of blood thinner if needed folic acid 1 mg tablet 1 mg PO BID 02/08/25 04/26/25 Hist ory methotrexate sodium 15 mg tablet 25 mg PO QWEEK 02/08/25 04/26/25 H istory Held on 02/23/25. Instructions: Resume on 03/16/25. acetaminophen 650 mg 1,300 mg PO Q12H PRN pain 02/10/25 04/26/25 History tablet,extended release (8 Hour Pain Reliever) Held on 02/23/25. Instructions: Duplicate cholecalciferol (vitamin D3) 25 25 mcg PO DAILY 02/10/25 04/26/25 History mcg (1,000 unit) tablet (Vitamin D3) omega 8-apq-ybx-fish oil 1,200 mg 1 cap PO DAILY 02/10/25 04/26/25 History (144 mg-216 mg) capsule (Fish Oil) acetaminophen 500 mg tablet 1,000 mg (2 x 500 mg) PO Q6H #90 0 02/23/25 04/26/25 Rx tabs apixaban 2.5 mg tablet (Eliquis) 2.5 mg PO BID #42 tabs 02/23/25 Rx cephalexin 500 mg capsule 1,000 mg (2 x 500 mg) PO Q8H #4 04/26/25 Rx caps Have you fallen in the past year?: No PFSH Medical History Shortness of breath on exertion Hypertension Wears glasses Colonoscopy planned Gastric reflux History of stress test Former smoker Surgical History History of total right hip replacement History of total left hip replacement Family History Mother Heart disease Diabetes Father Heart disease Social History household members: spouse Smoking Status: Former smoker alcohol intake: current alcohol intake frequency: holidays/special occasions only HPI BL KNEES Details: This documentation accurately reflects the service provided and the decisions made by me, Dr. Too Latham, DO 04/26/25824. Part of today???s visit was documented by Julisa Delarosa MA, acting as scribe. MILES TURNER is a 59 year old M here today for 1st Euflexxa bilateral knee injection he is also requesting bilateral knee steroid injection. Ortho Exam General General: Yes no acute distress Neurologic: Yes alert and Yes oriented x3 Psychologic: Yes reasonable and appropriate Right Knee Skin/Wound: No erythema, No ecchymosis and No swelling Homans Sign: No Knee ROM: Yes ROM-Extension -20 to 0 (-3) and Yes ROM-Flexion 0-140 (93) Examination: No Med jt line tenderness, No Lat jt line tenderness and No TTP Pes Anserine Stability: NML: Anterior Drawer, NML: Posterior Drawer, NML: Valgus 0, NML: Valgus 30, NML: Varus 0 and NML: Varus 30 Patella Translation: 1 Left Knee Skin/Wound: No ecchymosis, No erythema and No swelling Knee ROM: Yes ROM-Extension -20 to 0 (-3) and Yes ROM-Flexion 0-140 (93) Examination: No med jt line tenderness and No Lat jt line tenderness Stability: NML: Anterior Drawer, NML: Bautista, NML: Posterior Drawer, NML: Valgus 0, NML: Valgus 30, NML: Varus 0 and NML: Varus 30 Patella Translation: 1 KNEE: no effusion varus deformity 2mm medial gapping with valgus stress Right Hip Skin: No Ecchymosis and No Erythema internal rotation @90 degree flexion: 0 degrees external rotation @90 degree extension: 20 degrees Special Tests: No TTP Greater Troch and No RROM flexion pain HIP: Patient is very stiff he does not have significant pain with hip range of motion. There is no gross motor or sensory deficits bilateral lower extremity there is no tenderness over the trochanteric bursa Left Hip Skin/Wound: No Ecchymosis, No soft tissue swelling and No Erythema Hip: Absent eccymosis, soft tissue swelling or erythema internal rotation @90 degree flexion: 0 degrees external rotation @90 degree extension: 2 (more content not included)... Normal [facility] HIP, UNI W/ Pelvis 2-3 Views on 04-12-2025 HIP, UNI W/ Pelvis 2-[address] [facility] Imaging Services [address] [place] [address] HIP, UNI W/ Pelvis 2-3 Views MR#: [id number] Acct: [id number] Name: MILES TURNER Rep #: [id number] : 1965 M 59 From: Riley Fischer PCP: Dr. Vinh Aguilar MD Status: DEP AMB Study: HIP, UNI W/ Pelvis 2-3 Views Date of Exam: Exam# [id number] Ordering Dr: Too Latham DO PROCEDURE: HIP, UNI W/ PELVIS 2-3 VIEWS 04/12/2025 REASON FOR EXAM: RIGHT HIP, FOLLOW UP, ANA MARIA TECHNIQUE: HIP, UNI W/ PELVIS 2-3 VIEWS COMPARISON: Postoperative right hip from 02/23/2025. RAD/HIP, UNI W/ Pelvis 2-3 Views IMPRESSION: Partially visualized left hip prosthesis appear stable. Prominent degenerative changes of the visualized lower lumbar spine are noted. Mild sacroiliac joint degenerative changes are seen. A right total hip prosthesis remains in place, without evidence of loosening or metallic fracture. Stable alignment is seen. No complication is noted. Reading Location: [place] [address] CC: Dr. Too Latham DO; Dr. Vinh Aguilar MD Car Checker: Signed Normal [facility] Orthopedic Visit Reporton Orthopedic Visit Report [facility] [address] [place] [address] OFFICE VISIT Date of Service: 04/12/25 MR#: [id number] Acct: [id number] Name: MILES TURNER Rep #: [id number] : 1965 Provider: Dr. Too jones DO Age/Sex: 59/M Location: [facility] [place] Status: Signed Intake Vital Signs 01/11/25 10:47 02/23/25 08:40 04/12/25 08:27 Height 5 ft 9 in 5 ft 9 in 5 ft 9 in Weight: 260 lb BMI 38.4 Intake Visit Reasons: right hip Chief Complaint: 6 week post-op right hip Accompanied by: Is patient in pain?: Yes Pain scale (1-10): 0 Allergies No Known Allergies Allergy (Verified 04/12/25 08:28) Medications ???Medication ???Instructions ???Recorded ???Confirmed ???Type gemfibrozil 600 mg tablet 600 mg PO BIDAC 01/08/18 04/12/25 History omeprazole 40 mg capsule,delayed 40 mg PO QDAY 07/27/24 04/12/25 Hi story release valsartan 320 1 tab PO QDAY 07/27/24 04/12/25 Hi story mg-hydrochlorothiazi de 25 mg tablet etodolac 400 mg tablet 400 mg PO BID 02/08/25 04/12/25 Hi story Held on 02/23/25. Instructions: May resume after completion of blood thinner if needed folic acid 1 mg tablet 1 mg PO BID 02/08/25 04/12/25 Hist ory methotrexate sodium 15 mg tablet 25 mg PO QWEEK 02/08/25 04/12/25 H istory Held on 02/23/25. Instructions: Resume on 03/16/25. acetaminophen 650 mg 1,300 mg PO Q12H PRN pain 02/10/25 03/10/25 History tablet,extended release (8 Hour Pain Reliever) Held on 02/23/25. Instructions: Duplicate cholecalciferol (vitamin D3) 25 25 mcg PO DAILY 02/10/25 04/12/25 History mcg (1,000 unit) tablet (Vitamin D3) omega 2-qgw-thc-fish oil 1,200 mg 1 cap PO DAILY 02/10/25 04/12/25 History (144 mg-216 mg) capsule (Fish Oil) acetaminophen 500 mg tablet 1,000 mg (2 x 500 mg) PO Q6H #90 0 02/23/25 04/12/25 Rx tabs apixaban 2.5 mg tablet (Eliquis) 2.5 mg PO BID #42 tabs 02/23/25 Rx cephalexin 500 mg capsule 1,000 mg (2 x 500 mg) PO Q8H #4 04/12/25 Rx caps Have you fallen in the past year?: No PFSH Medical History Shortness of breath on exertion Hypertension Wears glasses Colonoscopy planned Gastric reflux History of stress test Former smoker Surgical History History of total right hip replacement History of total left hip replacement Family History Mother Heart disease Diabetes Father Heart disease Social History household members: spouse Smoking Status: Former smoker alcohol intake: current alcohol intake frequency: holidays/special occasions only HPI right hip Details: This documentation accurately reflects the service provided and the decisions made by me, Dr. Too Latham, DO 04/12/25 0814. Part of today???s visit was documented by Julisa Delarosa MA, acting as scribe. MILES TURNER is a 59 year old M here today for 6 week post op right hip. Patient states that he isn't having any pain in the right hip. He is doing great with normal activities. Patient stated that he is done with physical therapy. He did it at [facility], and did 4 weeks of it. Patient states that it was, great, and it was easy for him. He states that he has his normal motion back and strength back. Patient would like to know what he can do, like bending, or twisting. He hasn't had any injections since his las twisting. Ortho Exam General General: Yes no acute distress and Yes well groomed Neurologic: Yes alert and Yes oriented x3 Psychologic: Yes reasonable and appropriate Right Hip Skin: No Ecchymosis, No soft tissue swelling and No Erythema HIP: Hip incision well-healed there is no sign of infection or DVT is neurovascularly intact right lower extremity Supplemental Info 02/23/2025 right total hip arthroplasty: Dr. Latham 02/08/2025 x-ray bilateral hips: Status post left total hip arthroplasty with good interfaces and position; right hip has severe end-stage arthrosis with flattening of the femoral head, x-ray last 12/29/2024 left total hip arthroplasty: Dr. Latham 07/27/2024 x-ray right knee: Advanced knee arthrosis there is subluxation of the tibia laterally Advanced knee arthrosis there is subluxation of the tibia laterally advanced varus deformity 07/27/2024 x-ray left knee: Advanced knee arthrosis there is subluxation of the tibia laterally advanced varus deformity 06/01/2024 x-ray pelvis: Advanced bilateral hip arthrosis [id number] with bony erosion large cystic changes of the femoral head and acetabulum Coding Level of Care Code Global Post Op Diagnoses Orthopedic aftercare Z47.89 Assessmen (more content not included)... Normal [facility] Absolute lymphocyte countOrd ered By: Mari Prescott on 04-05-2025 Lymphocytes Auto (Unsp spec) [#/Vol] 1.38 10*3/uL 0.83-4.51 [facility] Absolute neutrophil countOrd ered By: [facility] on 04-05-2025 Neutrophils (Bld) [#/Vol] 2.2 10*3/uL 2.0-7.7 [facility] Anion gap in Serum or Plasma Ordered By: Mari Prescott on 04-05-2025 Anion gap [Moles/Vol] 13 mmol/L 5-15 [facility] Automated lymphocyte count a s percentage of total leukocytesOrdered By: Mari Prescott on 04-05-2025 Lymphocytes/100 WBC Auto (Unsp spec) 33.3 % - [facility] BUN/creatinine ratioOrdered By: [facility] on 04-05-2025 Urea nitrogen/Creatinine [Mass ratio] 28.3 mg/mg High 10-20 [facility] Basophil percentageOrdered B y: Mari Prescott on 04-05-2025 Basophils/100 WBC (Bld) 1.2 % High 0-1 [facility] Bilirubin, totalOrdered By: Mari rPescott on 04-05-2025 Bilirubin [Mass/Vol] 0.60 mg/dL 0.00-1.30 [facility] CBC W/Diff, Automatedon 03-15 Absolute Lymph 1.38 X10 3/uL Normal 0.83-4.51 [facility] Comment on above: Performed By: #### L 500.4050, L100.0100 #### [facility] [address] [place], [address] Absolute Neut 2.2 X10 3/uL Normal 2.0-7.7 [facility] Comment on above: Performed By: #### L 500.4050, L100.0100 #### [facility] [address] [place], [address] Basophils/100 WBC (Bld) 1.2 % High 0-1 [facility] Comment on above: Performed By: #### L 500.4050, L100.0100 #### [facility] [address] [place], [address] Eosinophils/100 WBC (Bld) 1.4 % Normal 0-5 [facility] Comment on above: Performed By: #### L 500.4050, L100.0100 #### [facility] [address] [place], [address] Erythrocyte distribution width (RBC) [Ratio] 14.4 % Normal 11.6-14.6 [facility] Comment on above: Performed By: #### L 500.4050, L100.0100 #### [facility] [address] [place], [address] Hematocrit (Bld) [Volume fraction] 44.5 % Normal 40-54 [facility] Comment on above: Performed By: #### L 500.4050, L100.0100 #### [facility] [address] [place], [address] Hemoglobin (Bld) [Mass/Vol] 15.1 g/dL Normal 13.0-16.5 [facility] Comment on above: Performed By: #### L 500.4050, L100.0100 #### [facility] [address] [place], [address] IG% 0.200 Normal 0.0-0.9 [facility] Comment on above: Result Comment: IG% - Immature Granulocytes (promyelocytes, myelocytes and metamyelocytes) > 1% indicates that a LEFT SHIFT is Present. Performed By: #### L 500.4050, L100.0100 #### [facility] [address] [place], [address] Lymphocytes/100 WBC (Bld) 33.3 % Normal 19-41 [facility] Comment on above: Performed By: #### L 500.4050, L100.0100 #### [facility] [address] [place], [address] MCH (RBC) [Entitic mass] 32.5 pg High 27.0-32.0 [facility] Comment on above: Performed By: #### L 500.4050, L100.0100 #### [facility] [address] [place], [address] MCHC (RBC) [Mass/Vol] 33.9 g/dL Normal 32-36 [facility] Comment on above: Performed By: #### L 500.4050, L100.0100 #### [facility] [address] [place], [address] MCV (RBC) [Entitic vol] 95.7 fL High 80-94 [facility] Comment on above: Performed By: #### L 500.4050, L100.0100 #### [facility] [address] [place], [address] Monocytes/100 WBC (Bld) 11.1 % High 0-10 [facility] Comment on above: Performed By: #### L 500.4050, L100.0100 #### [facility] [address] [place], [address] Neutrophils/100 WBC (Bld) 52.8 % Normal 47-70 [facility] Comment on above: Performed By: #### L 500.4050, L100.0100 #### [facility] [address] [place], [address] Nucleated RBC (Bld) [#/Vol] 0 10*3/uL Normal 0-5 [facility] Comment on above: Performed By: #### L 500.4050, L100.0100 #### [facility] [address] [place], [address] Platelet mean volume (Bld) [Entitic vol] 10.0 fL Normal 6.2-12.0 [facility] Comment on above: Performed By: #### L 500.4050, L100.0100 #### [facility] [address] [place], [address] Platelets (Bld) [#/Vol] 248 10*3/uL Normal 150-450 [facility] Comment on above: Performed By: #### L 500.4050, L100.0100 #### [facility] [address] [place], [address] RBC (Bld) [#/Vol] 4.65 10*6/uL Normal 4.6-6.2 [facility] Comment on above: Performed By: #### L 500.4050, L100.0100 #### [facility] [address] [place], [address] RDW SD 50.1 fl High 35.1-43.9 [facility] Comment on above: Performed By: #### L 500.4050, L100.0100 #### [facility] [address] [place], [address] WBC (Bld) [#/Vol] 4.2 10*3/uL Low 4.4-11.0 [facility] Comment on above: Performed By: #### L 500.4050, L100.0100 #### [facility] [address] [place], [address] Carbon dioxide, total [Moles /volume] in Central venous bloodOrdered By: Mari Prescott on 04-05-2025 CO2 [Moles/Vol] 20.9 mmol/L Low 21.0-32.0 [facility] Chloride assayOrdered By: Waldemar Prescott on 04-05-2025 Chloride [Moles/Vol] 104 mmol/L 98-108 [facility] Comprehensive Metabolic Prof ilon 04-05-2025 Albumin [Mass/Vol] 4.6 g/dL Normal 3.5-5.0 [facility] Comment on above: Performed By: #### L 500.4050, L100.0100 #### [facility] [address] [place], [address] Albumin/Globulin [Mass ratio] 1.8 {ratio} Normal 0.9-2.4 [facility] Comment on above: Performed By: #### L 500.4050, L100.0100 #### [facility] [address] [place], [address] ALK PHOS 96 U/L Normal 40-129 [facility] Comment on above: Performed By: #### L 500.4050, L100.0100 #### [facility] [address] [place], [address] ALT [Catalytic activity/Vol] 33 U/L Normal <=46 [facility] Comment on above: Performed By: #### L 500.4050, L100.0100 #### [facility] [address] [place], [address] AST [Catalytic activity/Vol] 22 U/L Normal <=37 [facility] Comment on above: Performed By: #### L 500.4050, L100.0100 #### [facility] [address] [place], [address] Bilirubin [Mass/Vol] 0.60 mg/dL Normal 0.00-1.30 [facility] Comment on above: Performed By: #### L 500.4050, L100.0100 #### [facility] [address] [place], [address] BUN/CRE 28.3 RATIO High 10-20 [facility] Comment on above: Performed By: #### L 500.4050, L100.0100 #### [facility] [address] [place], [address] Calcium [Mass/Vol] 9.5 mg/dL Normal 7.6-11.0 [facility] Comment on above: Performed By: #### L 500.4050, L100.0100 #### [facility] [address] [place], [address] Chloride [Moles/Vol] 104 mmol/L Normal 98-108 [facility] Comment on above: Performed By: #### L 500.4050, L100.0100 #### [facility] [address] [place], [address] CO2 [Moles/Vol] 20.9 mmol/L Low 21.0-32.0 [facility] Comment on above: Performed By: #### L 500.4050, L100.0100 #### [facility] [address] [place], [address] Creatinine [Mass/Vol] 0.73 mg/dL Normal 0.70-1.20 [facility] Comment on above: Performed By: #### L 500.4050, L100.0100 #### [facility] [address] [place], [address] GAP 13 Normal 5-15 [facility] Comment on above: Performed By: #### L 500.4050, L100.0100 #### [facility] [address] [place], [address] GFR/1.73 sq M.predicted among non-blacks MDRD (S/P/Bld) [Vol rate/Area] 105 mL/min/{1.73_m2} Normal >60 [facility] Comment on above: Result Comment: mL/m in/1.73m2 CKD-EPI Creatinine Equation (2020) Performed By: #### L 500.4050, L100.0100 #### [facility] [address] [place], [address] Globulin (S) [Mass/Vol] 2.6 g/dL Normal 2.2-4.2 [facility] Comment on above: Performed By: #### L 500.4050, L100.0100 #### [facility] [address] [place], [address] Glucose [Mass/Vol] 98 mg/dL Normal 70-99 [facility] Comment on above: Performed By: #### L 500.4050, L100.0100 #### [facility] [address] [place], [address] Potassium [Moles/Vol] 4.2 mmol/L Normal 3.3-5.1 [facility] Comment on above: Performed By: #### L 500.4050, L100.0100 #### [facility] [address] [place], [address] Sodium [Moles/Vol] 138 mmol/L Normal 133-145 [facility] Comment on above: Performed By: #### L 500.4050, L100.0100 #### [facility] [address] [place], [address] T PROT 7.1 g/dL Normal 5.9-8.4 [facility] Comment on above: Performed By: #### L 500.4050, L100.0100 #### [facility] [address] [place], [address] Urea nitrogen [Mass/Vol] 21 mg/dL High 4-19 [facility] Comment on above: Performed By: #### L 500.4050, L100.0100 #### [facility] [address] [place], [address] Eosinophil percentageOrdered By: Mari Prescott on 04-05-2025 Eosinophils/100 WBC (Bld) 1.4 % 0-5 [facility] Erythrocyte distribution wid th ratioOrdered By: Mari Prescott on 04-05-2025 Erythrocyte distribution width (RBC) [Ratio] 14.4 % 11.6-14.6 [facility] Erythrocyte distribution wid th standard deviationOrdered By: Mari Prescott on 04-05-2025 Erythrocyte distribution width (RBC) [Ratio] 50.1 fl High 35.1-43.9 [facility] Glomerular filtration rate ( GFR) estimation/1.73 sq m using serum, plasma, or whole bOrdered By: Mari Prescott on 04-05-2025 GFR/1.73 sq M.predicted among non-blacks MDRD (S/P/Bld) [Vol rate/Area] 105 mL/min/{1.73_m2} >60 [facility] Comment on above: mL/min/1.73m2 CKD-EP I Creatinine Equation (2020) Hematocrit Auto (Bld) [Volum e fraction]Ordered By: Mari Prescott on 04-05-2025 Hematocrit (Bld) [Volume fraction] 44.5 % 40-54 [facility] Hemoglobin measurementOrdere d By: Mari Prescott on 04-05-2025 Hemoglobin (Bld) [Mass/Vol] 15.1 g/dL 13.0-16.5 [facility] Immature granulocytes/100 WB C Auto (Bld)Ordered By: Mari Prescott on 04-05-2025 Immature granulocytes/100 WBC (Bld) 0.200 % 0.0-0.9 [facility] Comment on above: IG% - Immature Granu locytes (promyelocytes, myelocytes and metamyelocytes) > 1% indicates that a LEFT SHIFT is Present. Laboratory - Chemistry and C hemistry - challengeOrdered By: Mari Prescott on 04-05-2025 AST [Catalytic activity/Vol] 22 U/L <38 [facility] MCV (mean corpuscular volume ) determinationOrdered By: Mari Prescott on 04-05-2025 MCV (RBC) [Entitic vol] 95.7 fL High 80-94 [facility] Mean corpuscular hemoglobin (MCH) determinationOrdered By: Mari Prescott 04-05-2025 MCH (RBC) [Entitic mass] 32.5 pg High 27.0-32.0 [facility] Mean corpuscular hemoglobin concentration (MCHC) determinationOrdered By: Mari Prescott on 04-05-2025 MCHC (RBC) [Mass/Vol] 33.9 g/dL 32-36 [facility] Mean platelet volume determi nationOrdered By: Mari Prescott on 04-05-2025 Platelet mean volume (Bld) [Entitic vol] 10.0 fL 6.2-12.0 [facility] Monocyte percentageOrdered B y: Mari Prescott on 04-05-2025 Monocytes/100 WBC (Bld) 11.1 % High 0-10 [facility] Neutrophil percentageOrdered By: Mari Prescott on 04-05-2025 Neutrophils/100 WBC (Bld) 52.8 % 47-70 [facility] Nucleated red blood cell per centageOrdered By: Mari Prescott on 04-05-2025 Nucleated RBC/100 WBC (Bld) [Ratio] 0 % 0-5 [facility] Platelet countOrdered By: Waldemar Prescott on 04-05-2025 Platelets (Bld) [#/Vol] 248 10*3/uL 150-450 [facility] Potassium measurement (mass/ volume)Ordered By: Mari Prescott on 04-05-2025 Potassium (Unsp spec) [Mass/Vol] 4.2 mmol/L 3.3-5.1 [facility] RBC Auto (Bld) [#/Vol]Ordere d By: Mari Prescott on 04-05-2025 RBC (Bld) [#/Vol] 4.65 10*6/uL 4.6-6.2 [facility] Serum creatinine measurement (mass/volume)Ordered By: Mari Prescott on 04-05-2025 Creatinine [Mass/Vol] 0.73 mg/dL 0.70-1.20 [facility] Serum globulin measurementOr dered By: Mari Prescott on 04-05-2025 Globulin (S) [Mass/Vol] 2.6 g/dL 2.2-4.2 [facility] Serum glucose measurement (m ass/volume)Ordered By: Mari Prescott on 04-05-2025 Glucose [Mass/Vol] 98 mg/dL 70-99 [facility] Serum or plasma alanine treviño otransferase (ALT) measurementOrdered By: Mari Prescott on 04-05-2025 ALT [Catalytic activity/Vol] 33 U/L <47 [facility] Serum or plasma albumin sunny urement (mass/volume)Ordered By: Mari Prescott on 04-05-2025 Albumin [Mass/Vol] 4.6 g/dL 3.5-5.0 [facility] Serum or plasma albumin/glob ulin mass ratioOrdered By: Mari Prescott on 04-05-2025 Albumin/Globulin [Mass ratio] 1.8 {ratio} 0.9-2.4 [facility] Serum or plasma alkaline mica sphatase measurementOrdered By: Mari Prescott on 04-05-2025 ALP [Catalytic activity/Vol] 96 U/L 40-129 [facility] Serum or plasma calcium sunny urement (mass/volume)Ordered By: Mari Prescott on 04-05-2025 Calcium [Mass/Vol] 9.5 mg/dL 7.6-11.0 [facility] Serum or plasma urea nitroge n measurement (mass/volume)Ordered By: Mari Prescott on 04-05-2025 Urea nitrogen [Mass/Vol] 21 mg/dL High - [facility] Sodium levelOrdered By: Elaine Prescott on 04-05-2025 Sodium [Moles/Vol] 138 mmol/L 133-145 [facility] Total proteinOrdered By: Eusebio Prescott on 04-05-2025 Protein [Mass/Vol] 7.1 g/dL 5.9-8.4 [facility] White blood cell (WBC) count Ordered By: Mari Prescott on 04-05-2025 WBC (Bld) [#/Vol] 4.2 10*3/uL Low 4.4-11.0 [facility] PT D/C Summary (1)on 025 PT D/C Summary (1) [facility] [address] [place] [address] / REHABILITATION SERVICES DISCHARGE SUMMARY MR#: [id number] Acct: [id number] Name: MILES TURNER Rep #: [id number] : 1965 59 From: Simone Mayers PT, Aura. MD Us, JOSE Referring Dr.: Dr. Too Latham DO Status: R EG RCR Insurance: [employer]ANCE Discharge Summary D/C summary: It has been my pleasure to treat MILES TURNER referred by Dr. Too Latham DO, with the diagnosis of UNILATERAL PRIMARY OSTEOARTHRITIS, RIGHT HIP for a total of 10 visit(s). Discharge Date: 04/01/25 Please see the following information for a summary of their discharge status. Subjective Subjective: Doing great No cane Working around house yard Pain Right Hip: Pain Intensity (Out of 10): 0 Overall Improvement % Improvement: 90 Objective Objective/Function: POSTURE: mild forward posture GAIT: reciprocal pattern BALANCE: GOOD SKIN: intact AROM: supine flexion hip 90 degrees ,k ,hip abduction 40 degrees MMT: ( peak force) hip flexion 36.5 ,hip extension 28.4 ,quads 27.8 ,hamstrings 50.9,hip abd 19.3 , hip abduction ankle 5/5 STAIRS: alternating steps with rails Goals Goal 1:: Patient to be I with HEP for ANA MARIA Goal Progress: Goal Met Goal 2:: Patient to normalize gait pattern with no device Goal Progress: Goal Met Goal 3:: Patient to improve peak force quads/hams/hip by 10-15# to improve gait Goal Progress: Goal Met Goal 4:: Patient to improve TUG score under 12 sec to improve gait Goal Progress: Goal Met Goal 5:: Patient to improve LFES score by 10 points to improve QOL and function Goal Progress: Goal Met Goal 6:: Patient to improve ROM hip by 15 -20 degrees to improve gait Goal Progress: Goal Met Plan Plan: D/C TO HEP D/C Information Discharge Comments: d/c HEP d/c sentence: If there are questions or concerns regarding this patient's physical therapy, please feel free to call me at [phone]. Thank you for the referral of this patient. Sincerely, Simone Mayers PT, Cert MDT, OCS Balance/Gait/Functio nal tests Balance/Special Test Scores Lower Extremity Functional Score: 61 TUG Test Time Seconds: 23.25 Tug Test: 20-30sec.=variable mobility WOMAC Total Score: 8 WOMAC Percentage: 91.6700 Improvement % Improvement: 90 04/01/25 1201 CC: Dr. Too Latham DO; Dr. Vinh Aguilar MD HARPER Signed [facility] Orthopedic Visit Reporton Orthopedic Visit Report [facility] [address] [place] [address] [address] [place] [address] OFFICE VISIT Date of Service: 03/10/25 MR#: [id number] Acct: [id number] Name: MILES TURNER Rep #: [id number] : 1965 Provider: Dr. Too jones DO Age/Sex: 59/M Location[place] [facility] [place] Status: Signed Intake Vital Signs 01/11/25 10:47 02/23/25 08:40 Height 5 ft 9 in 5 ft 9 in Intake Visit Reasons: right hip Chief Complaint: 2 week post-op right hip Accompanied by: Is patient in pain?: No Allergies No Known Allergies Allergy (Verified 03/10/25 09:09) Medications ???Medication ???Instructions ???Recorded ???Confirmed ???Type gemfibrozil 600 mg tablet 600 mg PO BIDAC 01/08/18 03/10/25 History omeprazole 40 mg capsule,delayed 40 mg PO QDAY 07/27/24 03/10/25 Hi story release valsartan 320 1 tab PO QDAY 07/27/24 03/10/25 Hi story mg-hydrochlorothiazi de 25 mg tablet etodolac 400 mg tablet 400 mg PO BID 02/08/25 03/10/25 Hi story Held on 02/23/25. Instructions: May resume after completion of blood thinner if needed folic acid 1 mg tablet 1 mg PO BID 02/08/25 03/10/25 Hist ory methotrexate sodium 15 mg tablet 25 mg PO QWEEK 02/08/25 03/10/25 H istory Held on 02/23/25. Instructions: Resume on 03/16/25. acetaminophen 650 mg 1,300 mg PO Q12H PRN pain 02/10/25 03/10/25 History tablet,extended release (8 Hour Pain Reliever) Held on 02/23/25. Instructions: Duplicate cholecalciferol (vitamin D3) 25 25 mcg PO DAILY 02/10/25 03/10/25 History mcg (1,000 unit) tablet (Vitamin D3) omega 3-ghm-kbc-fish oil 1,200 mg 1 cap PO DAILY 02/10/25 03/10/25 History (144 mg-216 mg) capsule (Fish Oil) acetaminophen 500 mg tablet 1,000 mg (2 x 500 mg) PO Q6H #90 0 02/23/25 03/10/25 Rx tabs apixaban 2.5 mg tablet (Eliquis) 2.5 mg PO BID #42 tabs 02/23/25 Rx cephalexin 500 mg capsule 1,000 mg (2 x 500 mg) PO Q8H #4 03/10/25 Rx caps PFSH Medical History Shortness of breath on exertion Hypertension Wears glasses Colonoscopy planned Gastric reflux History of stress test Former smoker Surgical History History of total right hip replacement History of total left hip replacement Family History Mother Heart disease Diabetes Father Heart disease Social History household members: spouse Smoking Status: Former smoker alcohol intake: current alcohol intake frequency: holidays/special occasions only HPI right hip Details: This documentation accurately reflects the service provided and the decisions made by me, Dr. Too Latham, DO 03/10/25 0747. Part of today???s visit was documented by Kimberly Ariza ATC, acting as scribe. MILES TURNER is a 59 year old M here today for s/p robotic assisted right total hip arthroplasty DOS 02/23/2025. Patient denies any pain today. He states he is only taking Tylenol for the pain. Patient states he has started physical therapy and it is going pretty well. He states he is a little sore afterwards but nothing too painful. Patient's states the incision looks good. She changed to bandages yesterday and there was a little yellow drainage but nothing too bad or a lot of it. Ortho Exam General General: Yes no acute distress and Yes well groomed Neurologic: Yes alert and Yes oriented x3 Psychologic: Yes reasonable and appropriate Right Hip Date of Surgery: 02/23/25 Skin: Yes CDI, Yes healing, Yes suture/rex removed, No Ecchymosis, No soft tissue swelling and No Erythema HIP: Incision well-approximated no signs of infection or DVT neurovasc intact right lower extremity Supplemental Info 02/23/2025 right total hip arthroplasty: Dr. Latham 02/08/2025 x-ray bilateral hips: Status post left total hip arthroplasty with good interfaces and position; right hip has severe end-stage arthrosis with flattening of the femoral head, x-ray last 12/29/2024 left total hip arthroplasty: Dr. Latham 07/27/2024 x-ray right knee: Advanced knee arthrosis there is subluxation of the tibia laterally Advanced knee arthrosis there is subluxation of the tibia laterally advanced varus deformity 07/27/2024 x-ray left knee: Advanced knee arthrosis there is subluxation of the tibia laterally advanced varus deformity 06/01/2024 x-ray pelvis: Advanced bilateral hip arthrosis [id number] with bony erosion large cystic changes of the femoral head and acetabulum Coding Level of Care Code Global Post Op Diagnoses Orthopedic aftercare Z47.89 Assessment and Plan Assessment and Plan (1) Orthopedic aftercare: Status: Acute Plan The incision is lo (more content not included)... [facility] Inital Evaluation (1) - PTon 03-09-2025 Inital Evaluation (1) - PT [facility] [place] [address] / REHABILITATION SERVICES INITIAL EVALUATION MR#: [id number] Acct: [id number] Name: MILES TURNER Rep #: [id number] : 1965 59 From: Simone Mayers PT, Cert. T, OCS Referring Dr.: Dr. Too Latham, DO Status: R EG RCR Insurance: [employer] SELF PAY INSURANCE Patient's Visit Information Visit Information Visit Information: MILES TURNER is a 59 year old M referred to Physical Therapy by Dr. Too Latham DO with a diagnosis of UNILATERAL PRIMARY OSTEOARTHRITIS ,LEFT HIP. Date of Evaluation: 03/04/25 Physical Therapist: Simone Mayers PT, Cert MDT, OCS Visit Plan Frequency: 2x /Week Duration: 6 Weeks Plan: s/p RIGHT ANA MARIA WITH POSTERIOR LATERAL HIP PRECAUTIONS 02/23/25 PT INTERVENTIONS ROM HIP ,STRENGTHENING EX'S QUADS/HAMS/HIP ,FUNCTIONAL STRENGTHENING , AND GAIT/BALANCE TRAINING Subjective Subjective: This 59 y/o male presents to physical therapy for right ANA MARIA on 02/23/[address] Latham at [facility]. Patient was d/c DOS. Patient did posterior lateral with hip precautions.Patient was d/c with FWW with WBAT RLE. Patient recently underwent s/p left ANA MARIA December 24. Denies paresthesia/tingling . Min pain. Patient sleeping in bed. Patient denies paresthesia/tingling . Bowel/bladder -. Patient sleeping okay. Patient stopped pain medication. Patient lives 1 story with 2 steps with rails. Tub shower set up . Patient is dressing. Patient is able to bathing. Patient spouse does cooking. Patient condition affects QOL and function and RTW. Patient goals to return to prior level of function and job. 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 Right Hip: Pain Intensity (Out of 10): 4 Pain Intensity Range: 10 Objective Objective: POSTURE: mild forward posture GAIT: ambulates with fww with WBAT RLE reciprocal pattern BALANCE: fww + with fww SKIN: incision well approximate rex intact along with dressing AROM: supine flexion hip 60 degrees ,knee flexion 0-90 degrees ,hip abduction 20 degrees MMT: ( peak force) hip flexion 5.3 ,hip extension 0 ,quads 12.7 ,hamstrings 9.8 ,ankle 5/5 STAIRS: one step at time [facility] rail Balance/Special Test Scores Lower Extremity Functional Score: 26 TUG Test Time Seconds: 23.25 WOMAC Total Score: 67 WOMAC Percentatge: 30.2100 Goals Goal 1:: Patient to be I with HEP for ANA MARIA Goal Time Frame: 4-6 Weeks Goal 2:: Patient to normalize gait pattern with no device Goal Time Frame: 4-6 Weeks Goal 3:: Patient to improve peak force quads/hams/hip by 10-15# to improve gait Goal Time Frame: 4-6 Weeks Goal 4:: Patient to improve TUG score under 12 sec to improve gait Goal Time Frame: 4-6 Weeks Goal 5:: Patient to improve LFES score by 10 points to improve QOL and function Goal Time Frame: 4-6 Weeks Goal 6:: Patient to improve ROM hip by 15 -20 degrees to improve gait Goal Time Frame: 4-6 Weeks Rehabilitation Potential Physical Therapy Diagnosis: This patient underwent s/p left ANA MARIA with posterior lateral hip precautions with WBAT with walker ,with decrease ROM ,weakness right hip/knee ,balance and stairs impairs ADLs and RTW thus benefit from skilled PT Rehabilitation Potential: Good Anticipated Interventions Patient/Client Instruction: Educate patient on: Condition and Plan of Care For the Purpose of:: To decrease pain, To increase ROM, To improve muscle performance and motor function, To improve ability to perform ADL's, To increase tolerance to activity/condition/p osition, To improve ability of physical actions for home/community/work/ leisure, To improve gait and locomotor functions, To improve health of tissue, To decrease soft tissue restriction, To increase flexibility/ROM, To improve endurance, To improve balance and To improve tolerance to ADL's Therapeutic Exercise to Include: Strength training, Endurance training, Balance training, Gait and locomotor training and Active ROM Comment: QUADS/HAMS/HIP For the Purpose of:: To decrease pain, To increase ROM, To improve muscle performance and motor function, To improve ability to perform ADL's, To increase tolerance to activity/condition/p osition, To improve ability of physical actions for home/community/work/ leisure, To improve gait and locomotor functions, To improve health of tissue, To decrease soft tissue restriction, To increase flexibility/ROM, To improve balance and To improve tolerance to ADL's Text: Thank you for the opportunity to evaluate your patient. For Medicare and Medicare HMO plans, please review the plan of care and approve it. It will need to be FAXED BACK to us at [phone] for Medicare purposes. For Medicare only, by signing this I certify the plan of care. Please let me know if there are questions or concerns regarding this plan of care. Phy (more content not included)... [facility] Inital Evaluation (1) - PTon 03-04-2025 Inital Evaluation (1) - PT [facility] [address] [place] [address] / REHABILITATION SERVICES INITIAL EVALUATION MR#: [id number] Acct: [id number] Name: MILES TURNER Rep #: [id number] : 1965 59 From: Simone Mayers PT, Cert. MD Us, OCS Referring Dr.: Dr. Too Latham DO Status: R EG RCR Insurance: [employer] SELF PAY INSURANCE Patient's Visit Information Visit Information Visit Information: MILES TURNER is a 59 year old M referred to Physical Therapy by Dr. Too Latham DO with a diagnosis of UNILATERAL PRIMARY OSTEOARTHRITIS ,LEFT HIP. Date of Evaluation: 03/04/25 Physical Therapist: Simone Mayers PT, Cert T, OCS Visit Plan Frequency: 2x /Week Duration: 6 Weeks Plan: s/p RIGHT ANA MARIA WITH POSTERIOR LATERAL HIP PRECAUTIONS Subjective Subjective: This 59 y/o male presents to physical therapy for right ANA MARIA on 02/23/[address] Latham at [facility]. Patient was d/c DOS. Patient did posterior lateral with hip precautions.Patient was d/c with FWW with WBAT RLE. Patient recently underwent s/p left ANA MARIA December 24. Denies paresthesia/tingling . Min pain. Patient sleeping in bed. Patient denies paresthesia/tingling . Bowel/bladder -. Patient sleeping okay. Patient stopped pain medication. Patient lives 1 story with 2 steps with rails. Tub shower set up . Patient is dressing. Patient is able to bathing. Patient spouse does cooking. Patient condition affects QOL and function and RTW. Patient goals to return to prior level of function and job. 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 Right Hip: Pain Intensity (Out of 10): 4 Pain Intensity Range: 10 Objective Objective: POSTURE: mild forward posture GAIT: ambulates with fww with WBAT RLE reciprocal pattern BALANCE: fww + with fww SKIN: incision well approximate rex intact along with dressing AROM: supine flexion hip 60 degrees ,knee flexion 0-90 degrees ,hip abduction 20 degrees MMT: ( peak force) hip flexion 5.3 ,hip extension 0 ,quads 12.7 ,hamstrings 9.8 ,ankle 5/5 STAIRS: one step at time amy blackmon Balance/Special Test Scores Lower Extremity Functional Score: 26 TUG Test Time Seconds: 23.25 WOMAC Total Score: 67 WOMAC Percentatge: 30.2100 Goals Goal 1:: Patient to be I with HEP for ANA MARIA Goal Time Frame: 4-6 Weeks Goal 2:: Patient to normalize gait pattern with no device Goal Time Frame: 4-6 Weeks Goal 3:: Patient to improve peak force quads/hams/hip by 10-15# to improve gait Goal Time Frame: 4-6 Weeks Goal 4:: Patient to improve TUG score under 12 sec to improve gait Goal Time Frame: 4-6 Weeks Goal 5:: Patient to improve LFES score by 10 points to improve QOL and function Goal Time Frame: 4-6 Weeks Goal 6:: Patient to improve ROM hip by 15 -20 degrees to improve gait Goal Time Frame: 4-6 Weeks Rehabilitation Potential Physical Therapy Diagnosis: This patient underwent s/p left ANA MARIA with posterior lateral hip precautions with WBAT with walker ,with decrease ROM ,weakness right hip/knee ,balance and stairs impairs ADLs and RTW thus benefit from skilled PT Rehabilitation Potential: Good Anticipated Interventions Patient/Client Instruction: Educate patient on: Condition and Plan of Care For the Purpose of:: To decrease pain, To increase ROM, To improve muscle performance and motor function, To improve ability to perform ADL's, To increase tolerance to activity/condition/p osition, To improve ability of physical actions for home/community/work/ leisure, To improve gait and locomotor functions, To improve health of tissue, To decrease soft tissue restriction, To increase flexibility/ROM, To improve endurance, To improve balance and To improve tolerance to ADL's Therapeutic Exercise to Include: Strength training, Endurance training, Balance training, Gait and locomotor training and Active ROM Comment: QUADS/HAMS/HIP For the Purpose of:: To decrease pain, To increase ROM, To improve muscle performance and motor function, To improve ability to perform ADL's, To increase tolerance to activity/condition/p osition, To improve ability of physical actions for home/community/work/ leisure, To improve gait and locomotor functions, To improve health of tissue, To decrease soft tissue restriction, To increase flexibility/ROM, To improve balance and To improve tolerance to ADL's Text: Thank you for the opportunity to evaluate your patient. For Medicare and Medicare HMO plans, please review the plan of care and approve it. It will need to be FAXED BACK to us at [phone] for Medicare purposes. For Medicare only, by signing this I certify the plan of care. Please let me know if there are questions or concerns regarding this plan of care. Physician Signature: D ate: 03/05/25 2059 CC: Dr. Byrd (more content not included)... [facility] Decalcification bone/plaqueo n 02-23-2025 Decalcification bone/plaque Patient Age/Sex Location Account Attending Physician MILES TURNER 59/M [id number]. Too Latham, DO Specimen: [id number] Received: 02/23/25 Status: BECKA Reynolds Num: [id number] Spec Type: FEM HEAD Subm Dr: Dr. Too Latham, DO HEADER OPERATION: Right total hip replacement robotic arm assist PRE-OP DIAGNOSIS: AVN of femur, rheumatoid arthritis TISSUE SUBMITTED: A- Femur head, bone and soft tissue, right hip MICROSCOPIC DIAGNOSIS A. Right femoral head, total arthroplasty: * Articular bone with reactive/degenerativ e changes. * Focal necrosis with peripheral palisading, multinucleated giant cells, and bone destruction, consistent with rheumatoid nodule. MICROSCOPIC DESCRIPTION Slides are reviewed. GROSS DESCRIPTION A. Received in formalin in a container labeled with the patient's name, date of , and femur head, bone + soft tissue R hip is a firm and irregular femoral head measuring 5.0 x 5.0 x 4.3 cm with minimal attached femoral neck measuring approximately 0.5 cm in length with a diameter of 3.8 cm. The resection margin is smooth and firm. The cortical surface is pitted and granular with smooth eburnation, and exhibits an irregular shape with a sloping and nodular appearance. It is quadrisected to reveal firm and focally hemorrhagic surfaces. Received in the same container are multiple red-castro bone curettings with blood measuring approximately 4 x 4 x 1 cm in aggregate. Fur Matcher sections are submitted in A1 following decalcification (including sloped area of cortical surface and separate soft tissue). Additional sections are submitted in A2 on 03-01-2025 per pathologist request (including cortical surface x2 and separate soft tissue). [facility] 02-23-2025 CPT:97282,67852 Patient Age/Sex Location Account Attending Physician MILES TURNER 59/M [facility] [id number] Dr. Too Latham, DO Signed (signature on file) Dr. Meg Garay MD 03/03/251739 [facility] Comment on above: Performed By: #### P DEC ####[facility] [id number] [place], [address] Discharge Instructionon 02-11 Discharge Instruction [facility] Medical Records Department [address] [place] [address] Instructions for Home/Discharge Instructions 02/23/25 1327 MR#: [id number] Acct: [id number] Name: MILES TURNER Rep #: [id number] : 1965 59 From: Too Latham DO PCP: Dr. Vinh Aguilar MD Status:REG [facility] Discharge Instructions Diet Discharge Diet: No restrictions Dressing / Incision Call your doctor if you observe: Shortness of breath and Chest pain Additional Dressing/Incision Instructions:: Do not shower for 72hrs. May Begin daily showering with warm water antibacterial soap postop day #3( 72hrs Post-operatively) and then daily. Leave the dressing on for 72 hours postoperatively then remove prior to first shower and change dressing daily after this until no drainage for 2 consecutive days then may leave open to air. If you decide not shower on Saturday and wish to sponge bath only, then may leave dressing undisturbed for up to 1 week, but must remove prior to first shower. Do not submerge for 3 weeks. If not showering daily after the initial dressing is removed you must clean incision and change dressing daily after the dressing comes off, must come off by 7 days postop. Do not allow animals near the incision area. Keep clean. Follow hip precautions that were reviewed in hospital. Wear compression stockings, may remove at night. Start physical therapy as directed in hospital. Follow prescriptions instructions do not take any other pain medication or differ dosing without consulting your physician. Do not take oral NSAIDs until blood thinner has been completed , then may begin the day after completion if needed . Call Dr. Latham's office with any concerns. Follow Up Care Please Follow Up With: Too Latham DO When: 2 weeks Test Results: Test results from this visit will be discussed in further detail at your follow-up appointment, if applicable. Discharge Plan Admission Primary Reason for Your Visit: Right total hip arthroplasty Attending Provider: Too Latham Primary Care Provider: Vinh Aguilar Instructions Print Language: [place] Discharge Orders/Prescriptions Prescriptions: New acetaminophen 500 mg tablet 1,000 mg PO Q6H Qty: 90 0RF cephalexin 500 mg capsule 1,000 mg PO Q8H Qty: 4 0RF Rx Instructions: Take 2 tabs before you go to bed and 2 tabs after 5 AM morning after surgery when you wake up Eliquis 2.5 mg tablet 2.5 mg PO BID Qty: 42 0RF Rx Instructions: Begin morning after surgery. oxycodone 5 mg tablet 5 - 10 mg PO Q4H PRN (Reason: pain) 7 Days Qty: 60 0RF Continued valsartan-hydrochlor othiazide 320-25 mg tablet 1 tab PO QDAY omeprazole 40 mg capsule,delayed release(DR/EC) 40 mg PO QDAY folic acid 1 mg tablet 1 mg PO BID gemfibrozil 600 MG tablet 600 mg PO BIDAC omega 0-xls-zbe-fish oil [Fish Oil] 1,200 (144-216) mg capsule 1 cap PO DAILY cholecalciferol (vitamin D3) [Vitamin D3] 25 mcg (1,000 unit) tablet 25 mcg PO DAILY Held etodolac 400 mg tablet 400 mg PO BID Hold Instructions: May resume after completion of blood thinner if needed methotrexate sodium 15 mg tablet 25 mg PO QWEEK Hold Instructions: Resume on 03/16/25. Rx Instructions: 8 tablets every Saturday acetaminophen [8 Hour Pain Reliever] 650 mg tablet extended release 1,300 mg PO Q12H PRN (Reason: pain) Hold Instructions: Duplicate Referrals / Follow Up: Vinh Aguilar MD [Primary Care Provider] - Disposition Disposition (needs filled in before D/C Order can be placed): Home, Self Care 02/23/25 1330 Too Latham DO CC: Dr. Vinh Aguilar MD Signed [facility] Hip Min 2 Views (Portable)on 02-23-2025 Hip Min 2 Views (Portable) [facility] Imaging Services [address] [place] [address] [phone] Hip Min 2 Views (Portable) MR#: [id number] Acct: [id number] Name: MILES TURNER Rep #: [id number] : 1965 M 59 From: Joel Arana MD PCP: Dr. Vinh Aguilar MD Status: [facility] Study: Hip Min 2 Views (Portable) Date of Exam: 02/23 Exam# [id number] Ordering Dr: Too Latham DO PROCEDURE: HIP MIN 2 VIEWS (PORTABLE) 02/23/2025 REASON FOR EXAM: POSTOP PACU TECHNIQUE: Two views right hip FINDINGS: Status post right hip replacement appears intact and anatomic. No fracture or dislocation. Overlying skin rex and soft tissue air. Left hip replacement again noted. RAD/Hip Min 2 Views (Portable) IMPRESSION: Status post right hip replacement appears intact and anatomic. No fracture or dislocation. Overlying skin rex and soft tissue air. Reading Location: [id number] CC: Dr. Too Latham DO; Dr. Vinh Aguilar MD Car Checker: Signed [facility] MR/POSTOP.ANE 02-23-2025 MR/POSTOP.[facility] Medical Records Department [address] [place] [address] Anesthesia Postop Eval I 02/23/25 1344 MR#: [id number] Acct: [id number] Name: MILES TURNER Rep #: [id number] : 1965 59 From: Magdalena [place] CRNA PCP: Dr. Vinh Aguilar MD Status:REG [facility] Y Race: C Location: [place] [address] Anesthesia: Postop Eval I Current Vital Signs Temperature: 97.6 F Pulse Rate: 87 Blood Pressure: 107/73 Respiratory Rate: 16 Pulse Ox: 96 Oxygen Delivery Method: Room Air Assessment Airway patent: Yes Spontaneous unlabored respirations: Yes Mental status: Awake and Calm nausea: No Vomiting: No Anesthesia Complication: No Fluid Hydration Crystalloid volume administer (ml): 1,800 Total IV fluid infused: 1,800 Progress Note Anesthesia document: Postop Eval 1 completed: Yes 02/23/25 1344 Date Magdalena Beach RIVET CATCHER Cosigner Signature: Date CC: Signed [facility] [id number] 02-23-2025 MR/POST[address] Medical Records Department [address] [place] [address] Anesthesia Postop Eval II 02/23/25 1402 MR#: [id number] Acct: [id number] Name: MILES TURNER Rep #: [id number] : 1965 59 From: Vinicius Carlson MD PCP: Dr. Vinh Aguilar MD Status:REG [facility] Y Race: C Location[facility] Anesthesia Postop Eval I Sum Postop Eval Completion status Anesthesia document: Postop Eval 1 completed: Yes Anesthesia Postop Eval I Summary Anesthesia Postop Eval I Summary: Anesthesia Postop Eval I: Assessment Summary Airway patent Yes 02/23/25 13:44 [email or web address] Spontaneous unlabored Yes 02/23/25 13:44 [email or web address] [email or web address] respirations Mental status Awake,Calm 02/23/25 13:44 [email or web address] nausea No 02/23/25 13:44 [email or web address] [email or web address] Vomiting No 02/23/25 13:44 [email or web address] Anesthesia Postop Eval I: Fluid Summary Crystalloid volume administer 1,800 02/23/25 13:44 [email or web address] [email or web address] (ml) Colloids volume administered ( ml) Blood Product volume administered (ml) Total IV fluid infused 1,800 02/23/25 13:44 [email or web address] [email or web address] Anesthesia Postop Eval I: Summary Notes Anesthesia Complication No 02/23/25 13:44 [email or web address] Anesthesia Complication Comment: Post-operative progress note Anesthesia: Postop Eval II Evaluation Mental status: Awake and Calm Pain Level: 4 nausea: No Vomiting: No Complications Anesthesia Complication: No 02/23/25 1402 Date Vinicius Carlson MD Cosigner Signature: Date CC: Signed [facility] Operative Reporton 5 Operative Report [facility] Medical Records Department [address] [place] [address] Operative Report 02/23/25 1322 MR#: [id number] Acct: [id number] Name: MILES TURNER Rep #: [id number] : 1965 59 From: Too Latham DO PCP: Dr. Vinh Aguilar MD Status:DEP [facility] [place] [facility] [place] Problems Associated Problem List Diagnoses (1) Other acute postprocedural pain: Operative Report (Standard) Operative Information Date of Procedure: 02/23/25 Pre-Operative Diagnosis: Right hip DJD/AVN Post-Operative Diagnosis: Same Surgery/Procedure Performed: Robotic assisted right total hip arthroplasty concert promoter: Yes Housing Liaison: Moshe Chen Tasks completed by warehouse assistant: Opening closing, Removing tissue, Implanting device and Retracting Additional industrial hire sales assistant?: No Type of Anesthesia: Spinal RN Documented Start/Stop Times: Operation Date: 02/23/25 10:30 Case Time Into Pre-Op 02/23/25 08:10 Anesthesia Start 02/23/25 11:10 Into Room 02/23/25 11:10 Procedure Start 02/23/25 11:40 Procedure End 02/23/25 13:30 Anesthesia End 02/23/25 13:36 Out of Room 02/23/25 13:36 Into Recovery 02/23/25 13:40 Out of Recovery 02/23/25 14:18 Into Phase II Recovery 02/23/25 14:20 Procedure Start Time: 11:40 Procedure Stop Time: 13:30 Select all DRAINS/GRAFTS/IMPLAN TS that apply: Prosthetic device Prosthetic device details: Yogesh Estimated Blood Loss: 125 Specimen collected: Yes Description of specimen(s) removed: Femoral head Description of surgery: Preoperative diagnosis: Right hip DJD Postoperative diagnosis: Same Procedure: CT-guided Makoplasty assisted right total hip arthroplasty Implants: [place] Accolade II stem size 6, 127 degree neck angle 0 head neck length 52 mm Trident II acetabular shell with 30mm cancellous screw 36 mm ceramic head, 10 degree Trident X3 polyethylene insert. Anesthesia: Spinal EBL: 125 cc Complications: None Condition: Stable to PACU Commercial Appraiser Moshe Chen. My physician industrial hire sales assistant was a vital part of this case. He was important in appropriate retraction during the case, and protection of soft tissues during procedure. His intimate knowledge of the case and my steps aided in safe and expedient completion of the procedure as well as appropriate position of the extremity during the case. He was also vital in assisting with closure under my direct supervision. Indication for procedure: This is a 59-year-old male who has had long-standing arthrosis of the hip as well as AVN of the femoral head who has failed conservative treatment and wished to undergo total hip arthroplasty. We did discuss operative versus nonoperative intervention including risks of bleeding, infection , nerve artery tissue damage, need for further surgery, fracture, leg length discrepancy dislocation blood clot and need for postoperative physical therapy and postoperative expectations. An informed consent was signed. Procedure: Patient was met in the preoperative holding area once again the operative extremity was identified by both patient and physician and was marked. Patient was met by anesthesia . Anesthesia was started. patient was then positioned in the lateral decubitus position on a well-padded pegboard with an axillary roll. All bony prominences were checked and padded. The patient was prepped and draped in the usual sterile fashion. A timeout was called to ensure the proper patient procedure and extremity were being contemplated. Anatomic landmarks were palpated and marked for a standard posterior lateral approach. Prior to this the ASIS was palpated and 3 fingerbreadths proximal to this 3 pins were placed at a 45 degree angle into the iliac crest with good purchase, stab incisions were made with a 15 blade into the skin prior to placement. The Makoplasty array was then secured. A 10 blade scalpel was used to make a posterior incision through the skin and subcutaneous tissue. retractors were used and electrocautery was used to maintain meticulous hemostasis and dissect full-thickness flaps until the gluteal fascia was reached. The gluteal fascia was incised in line with the gluteal fibers. The bursal tissue was then freed from the underside and a Charnley retractor was placed. The femoral trochanteric checkpoint was placed and leg length was assessed using the trochanteric checkpoint and an EKG lead that was placed on the knee prior to prepping the leg .the fat pad was then elevated off of the external rotators with electrocautery and the external rotators were dissected off of the greater trochanter including the piriformis and were tagged with #1 Ethibond for later repair. The joint capsule opened with posterior trapdoor technique. The hip was surgically dislocated. The measurement on the preoperative CT from the top of the lesser trochanter to the femoral neck (more content not included)... [facility] Extremity Lower without Cont raon 02-11-2025 Extremity Lower without Contra [facility] Imaging Services [address] [place] [address] Extremity Lower without Contra MR#: [id number] Acct: [id number] Name: MILES TURNER Rep #: [id number] : 1965 M 59 From: Alfredo Gomez MD PCP: Dr. Vinh Aguilar MD Status: REG CLI Study: Extremity Lower without Contra Date of Exam: 0 02/11/25 Exam# [id number] Ordering Dr: Too Latham DO PROCEDURE: EXTREMITY LOWER WITHOUT CONTRA 02/11/2025 REASON FOR EXAM: TEMPLATING FOR RIGHT ANA MARIA TECHNIQUE: Axial CT images of the right hip obtained without intravenous contrast. Coronal and Sagittal reconstruction series were provided. CONTRAST: None One or more dose reduction techniques were used (e.g., Automated exposure control, adjustment of the mA and/or kV according to patient size, use of iterative reconstruction technique). RADIATION DOSE SUMMARY: DLP: 800.18 MGycm COMPARISON: December 11, 2024 FINDINGS: Bones: There is a 1.7 x 1.1 cm dense blastic focus in the superior aspect of the right iliac, image 61/615, unchanged. There is a 0.7 x 0.3 cm blastic lesion in the right iliac at the SI joint, image 87/615, unchanged. There is a 1 cm blastic lesion in the lateral aspect of the right iliac, image 73/615, unchanged. There is a total hip prosthesis in position on the left, new compared to the prior. There is severe osteoarthritis of the right hip with superolateral migration of the femoral head and collapse of the articular surface, with subcortical cyst formation and marginal osteophytes. No acute fracture is identified. There is grade 1 spondylolisthesis at L4-5, 0.5 cm. Soft Tissues: Atherosclerotic calcifications are noted. There is a 3.7 x 2.0 cm uncomplicated fat containing right inguinal hernia, unchanged. Prostate calcifications are visible. CT/Extremity Lower without Contra IMPRESSION: There is a 1.7 x 1.1 cm dense blastic focus in the superior aspect of the right iliac, image 61/615, unchanged. There is a 0.7 x 0.3 cm blastic lesion in the right iliac at the SI joint, image 87/615, unchanged. There is a 1 cm blastic lesion in the lateral aspect of the right iliac, image 73/615, unchanged. Consider whole-body bone scan correlation. There is a total hip prosthesis in position on the left, new compared to the prior. There is grade 1 spondylolisthesis at L4-5, 0.5 cm. There is severe osteoarthritis of the right hip with superolateral migration of the femoral head and collapse of the articular surface, with subcortical cyst formation and marginal osteophytes. Reading Location: [facility] CC: Dr. Too Latham DO; Dr. Vinh Aguilar MD Car Checker: Signed [facility] Type AND Screen - PAT ONLYon 02-11-2025 ABO and Rh group Nom (Bld) Blood group O Rh(D) positive [facility] Comment on above: Order Comment: Surge ry Date: 02/23/25Reason for Laboratory Test PRE-[id number]) Right Total Hip Replacement Robotic Arm Assisted, E Performed By: #### B TSPAT ####[facility] [address] [place], [address] Absolute lymphocyte countOrd ered By: Mari Prescott on 02-09-2025 Lymphocytes Auto (Unsp spec) [#/Vol] 1.68 10*3/uL 0.83-4.51 [facility] Absolute neutrophil countOrd ered By: Mari Prescott on 02-09-2025 Neutrophils (Bld) [#/Vol] 2.7 10*3/uL 2.0-7.7 [facility] Anion gap in Serum or Plasma Ordered By: Mari Prescott on 02-09-2025 Anion gap [Moles/Vol] 11 mmol/L 5-15 [facility] Automated lymphocyte count a s percentage of total leukocytesOrdered By: Mari Prescott on 02-09-2025 Lymphocytes/100 WBC Auto (Unsp spec) 35.7 % 19-41 [facility] BUN/creatinine ratioOrdered By: Mari Lopeznaida on 02-09-2025 Urea nitrogen/Creatinine [Mass ratio] 31.4 mg/mg High 10-20 [facility] Basophil percentageOrdered B y: Mari Genie on 02-09-2025 Basophils/100 WBC (Bld) 0.6 % 0-1 [facility] Bilirubin, totalOrdered By: Mari Genie on 02-09-2025 Bilirubin [Mass/Vol] 0.57 mg/dL 0.00-1.30 [facility] CBC W/Diff, Automatedon 01-13 Absolute Lymph 1.68 X10 3/uL Normal 0.83-4.51 [facility] Comment on above: Performed By: #### L 100.0100, L500.4050 #### [facility] [address] [place], [address] Absolute Neut 2.7 X10 3/uL Normal 2.0-7.7 [facility] Comment on above: Performed By: #### L 100.0100, L500.4050 #### [facility] [address] [place], [address] Basophils/100 WBC (Bld) 0.6 % Normal 0-1 [facility] Comment on above: Performed By: #### L 100.0100, L500.4050 #### [facility] [address] [place], [address] Eosinophils/100 WBC (Bld) 1.3 % Normal 0-5 [facility] Comment on above: Performed By: #### L 100.0100, L500.4050 #### [facility] [address] [place], [address] Erythrocyte distribution width (RBC) [Ratio] 13.9 % Normal 11.6-14.6 [facility] Comment on above: Performed By: #### L 100.0100, L500.4050 #### [facility] [address] [place], [address] Hematocrit (Bld) [Volume fraction] 39.9 % Low 40-54 [facility] Comment on above: Performed By: #### L 100.0100, L500.4050 #### [facility] [address] [place], [address] Hemoglobin (Bld) [Mass/Vol] 13.8 g/dL Normal 13.0-16.5 [facility] Comment on above: Performed By: #### L 100.0100, L500.4050 #### [facility] [address] [place], [address] IG% 0.200 Normal 0.0-0.9 [facility] Comment on above: Result Comment: IG% - Immature Granulocytes (promyelocytes, myelocytes and metamyelocytes) > 1% indicates that a LEFT SHIFT is Present. Performed By: #### L 100.0100, L500.4050 #### [facility] [address] [place], [address] Lymphocytes/100 WBC (Bld) 35.7 % Normal 19-41 [facility] Comment on above: Performed By: #### L 100.0100, L500.4050 #### [facility] [address] [place], [address] MCH (RBC) [Entitic mass] 34.4 pg High 27.0-32.0 [facility] Comment on above: Performed By: #### L 100.0100, L500.4050 #### [facility] [address] [place], [address] MCHC (RBC) [Mass/Vol] 34.6 g/dL Normal 32-36 [facility] Comment on above: Performed By: #### L 100.0100, L500.4050 #### [facility] [address] [place], [address] MCV (RBC) [Entitic vol] 99.5 fL High 80-94 [facility] Comment on above: Performed By: #### L 100.0100, L500.4050 #### [facility] [address] [place], [address] Monocytes/100 WBC (Bld) 5.9 % Normal 0-10 [facility] Comment on above: Performed By: #### L 100.0100, L500.4050 #### [facility] [address] [place], [address] Neutrophils/100 WBC (Bld) 56.3 % Normal 47-70 [facility] Comment on above: Performed By: #### L 100.0100, L500.4050 #### [facility] [address] [place], [address] Nucleated RBC (Bld) [#/Vol] 0 10*3/uL Normal 0-5 [facility] Comment on above: Performed By: #### L 100.0100, L500.4050 #### [facility] [address] [place], [address] Platelet mean volume (Bld) [Entitic vol] 10.0 fL Normal 6.2-12.0 [facility] Comment on above: Performed By: #### L 100.0100, L500.4050 #### [facility] [address] [place], [address] Platelets (Bld) [#/Vol] 245 10*3/uL Normal 150-450 [facility] Comment on above: Performed By: #### L 100.0100, L500.4050 #### [facility] [address] [place], [address] RBC (Bld) [#/Vol] 4.01 10*6/uL Low 4.6-6.2 [facility] Comment on above: Performed By: #### L 100.0100, L500.4050 #### [facility] [address] [place], [address] RDW SD 50.5 fl High 35.1-43.9 [facility] Comment on above: Performed By: #### L 100.0100, L500.4050 #### [facility] [address] [place], [address] WBC (Bld) [#/Vol] 4.7 10*3/uL Normal 4.4-11.0 [facility] Comment on above: Performed By: #### L 100.0100, L500.4050 #### [facility] [address] [place], [address] Carbon dioxide, total [Moles /volume] in Central venous bloodOrdered By: Mari Prescott on 02-09-2025 CO2 [Moles/Vol] 23.2 mmol/L 21.0-32.0 [facility] Chloride assayOrdered By: Waldemar Prescott on 02-09-2025 Chloride [Moles/Vol] 106 mmol/L 98-108 [facility] Comprehensive Metabolic Prof ilon 02-09-2025 Albumin [Mass/Vol] 4.4 g/dL Normal 3.5-5.0 [facility] Comment on above: Performed By: #### L 100.0100, L500.4050 #### [facility] [address] [place], [address] Albumin/Globulin [Mass ratio] 1.9 {ratio} Normal 0.9-2.4 [facility] Comment on above: Performed By: #### L 100.0100, L500.4050 #### [facility] [address] [place], [address] ALK PHOS 96 U/L Normal 40-129 [facility] Comment on above: Performed By: #### L 100.0100, L500.4050 #### [facility] [address] [place], [address] ALT [Catalytic activity/Vol] 29 U/L Normal <=46 [facility] Comment on above: Performed By: #### L 100.0100, L500.4050 #### [facility] [address] [place], [address] AST [Catalytic activity/Vol] 19 U/L Normal <=37 [facility] Comment on above: Performed By: #### L 100.0100, L500.4050 #### [facility] [address] [place], [address] Bilirubin [Mass/Vol] 0.57 mg/dL Normal 0.00-1.30 [facility] Comment on above: Performed By: #### L 100.0100, L500.4050 #### [facility] [address] [place], [address] BUN/CRE 31.4 RATIO High 10-20 [facility] Comment on above: Performed By: #### L 100.0100, L500.4050 #### [facility] [address] [place], [address] Calcium [Mass/Vol] 9.5 mg/dL Normal 7.6-11.0 [facility] Comment on above: Performed By: #### L 100.0100, L500.4050 #### [facility] [address] [place], [address] Chloride [Moles/Vol] 106 mmol/L Normal 98-108 [facility] Comment on above: Performed By: #### L 100.0100, L500.4050 #### [facility] [address] [place], [address] CO2 [Moles/Vol] 23.2 mmol/L Normal 21.0-32.0 [facility] Comment on above: Performed By: #### L 100.0100, L500.4050 #### [facility] [address] [place], [address] Creatinine [Mass/Vol] 0.66 mg/dL Low 0.70-1.20 [facility] Comment on above: Performed By: #### L 100.0100, L500.4050 #### [facility] [address] [place], [address] GAP 11 Normal 5-15 [facility] Comment on above: Performed By: #### L 100.0100, L500.4050 #### [facility] [address] [place], [address] GFR/1.73 sq M.predicted among non-blacks MDRD (S/P/Bld) [Vol rate/Area] 108 mL/min/{1.73_m2} Normal >60 [facility] Comment on above: Result Comment: mL/m in/1.73m2 CKD-EPI Creatinine Equation (2020) Performed By: #### L 100.0100, L500.4050 #### [facility] [address] [place], [address] Globulin (S) [Mass/Vol] 2.3 g/dL Normal 2.2-4.2 [facility] Comment on above: Performed By: #### L 100.0100, L500.4050 #### [facility] [address] [place], [address] Glucose [Mass/Vol] 96 mg/dL Normal 70-99 [facility] Comment on above: Performed By: #### L 100.0100, L500.4050 #### [facility] [address] [place], [address] Potassium [Moles/Vol] 4.5 mmol/L Normal 3.3-5.1 [facility] Comment on above: Performed By: #### L 100.0100, L500.4050 #### [facility] [address] [place], [address] Sodium [Moles/Vol] 140 mmol/L Normal 133-145 [facility] Comment on above: Performed By: #### L 100.0100, L500.4050 #### [facility] [address] [place], [address] T PROT 6.7 g/dL Normal 5.9-8.4 [facility] Comment on above: Performed By: #### L 100.0100, L500.4050 #### [facility] [address] [place], [address] Urea nitrogen [Mass/Vol] 21 mg/dL High 4-19 [facility] Comment on above: Performed By: #### L 100.0100, L500.4050 #### [facility] [address] [place], [address] Eosinophil percentageOrdered By: Mari Prescott on 02-09-2025 Eosinophils/100 WBC (Bld) 1.3 % 0-5 [facility] Erythrocyte distribution wid th ratioOrdered By: Mari Prescott on 02-09-2025 Erythrocyte distribution width (RBC) [Ratio] 13.9 % 11.6-14.6 [facility] Erythrocyte distribution wid th standard deviationOrdered By: Mari Prescott on 02-09-2025 Erythrocyte distribution width (RBC) [Ratio] 50.5 fl High 35.1-43.9 [facility] Glomerular filtration rate ( GFR) estimation/1.73 sq m using serum, plasma, or whole bOrdered By: Mari Prescott on 02-09-2025 GFR/1.73 sq M.predicted among non-blacks MDRD (S/P/Bld) [Vol rate/Area] 108 mL/min/{1.73_m2} >60 [facility] Comment on above: mL/min/1.73m2 CKD-EP I Creatinine Equation (2020) Hematocrit Auto (Bld) [Volum e fraction]Ordered By: Mari Prescott on 02-09-2025 Hematocrit (Bld) [Volume fraction] 39.9 % Low 40-54 [facility] Hemoglobin measurementOrdere d By: Mari Prescott on 02-09-2025 Hemoglobin (Bld) [Mass/Vol] 13.8 g/dL 13.0-16.5 [facility] Immature granulocytes/100 WB C Auto (Bld)Ordered By: Mari Prescott on 02-09-2025 Immature granulocytes/100 WBC (Bld) 0.200 % 0.0-0.9 [facility] Comment on above: IG% - Immature Granu locytes (promyelocytes, myelocytes and metamyelocytes) > 1% indicates that a LEFT SHIFT is Present. Laboratory - Chemistry and C hemistry - challengeOrdered By: Mari Prescott on 02-09-2025 AST [Catalytic activity/Vol] 19 U/L <38 [facility] MCV (mean corpuscular volume ) determinationOrdered By: Mari Prescott on 02-09-2025 MCV (RBC) [Entitic vol] 99.5 fL High 80-94 [facility] Mean corpuscular hemoglobin (MCH) determinationOrdered By: Mari Prescott 02-09-2025 MCH (RBC) [Entitic mass] 34.4 pg High 27.0-32.0 [facility] Mean corpuscular hemoglobin concentration (MCHC) determinationOrdered By: Mari Prescott 02-09-2025 MCHC (RBC) [Mass/Vol] 34.6 g/dL 32-36 [facility] Mean platelet volume determi nationOrdered By: Mari Prescott on 02-09-2025 Platelet mean volume (Bld) [Entitic vol] 10.0 fL 6.2-12.0 [facility] Monocyte percentageOrdered B y: Mari Prescott on 02-09-2025 Monocytes/100 WBC (Bld) 5.9 % 0-10 [facility] Neutrophil percentageOrdered By: Mari Prescott on 02-09-2025 Neutrophils/100 WBC (Bld) 56.3 % 47-70 [facility] Nucleated red blood cell per centageOrdered By: Mari Prescott on 02-09-2025 Nucleated RBC/100 WBC (Bld) [Ratio] 0 % 0-5 [facility] Platelet countOrdered By: Waldemar Prescott on 02-09-2025 Platelets (Bld) [#/Vol] 245 10*3/uL 150-450 [facility] Potassium measurement (mass/ volume)Ordered By: Mari Prescott on 02-09-2025 Potassium (Unsp spec) [Mass/Vol] 4.5 mmol/L 3.3-5.1 [facility] RBC Auto (Bld) [#/Vol]Ordere d By: Mari Prescott on 02-09-2025 RBC (Bld) [#/Vol] 4.01 10*6/uL Low 4.6-6.2 [facility] Serum creatinine measurement (mass/volume)Ordered By: Mari Prescott on 02-09-2025 Creatinine [Mass/Vol] 0.66 mg/dL Low 0.70-1.20 [facility] Serum globulin measurementOr dered By: Mari Prescott on 02-09-2025 Globulin (S) [Mass/Vol] 2.3 g/dL 2.2-4.2 [facility] Serum glucose measurement (m ass/volume)Ordered By: Mari Prescott on 02-09-2025 Glucose [Mass/Vol] 96 mg/dL 70-99 [facility] Serum or plasma alanine treviño otransferase (ALT) measurementOrdered By: Mari Prescott on 02-09-2025 ALT [Catalytic activity/Vol] 29 U/L <47 [facility] Serum or plasma albumin sunny urement (mass/volume)Ordered By: Mari Prescott on 02-09-2025 Albumin [Mass/Vol] 4.4 g/dL 3.5-5.0 [facility] Serum or plasma albumin/glob ulin mass ratioOrdered By: Mari Prescott on 02-09-2025 Albumin/Globulin [Mass ratio] 1.9 {ratio} 0.9-2.4 [facility] Serum or plasma alkaline mica sphatase measurementOrdered By: Mari Prescott on 02-09-2025 ALP [Catalytic activity/Vol] 96 U/L 40-129 [facility] Serum or plasma calcium sunny urement (mass/volume)Ordered By: Mari Prescott on 02-09-2025 Calcium [Mass/Vol] 9.5 mg/dL 7.6-11.0 [facility] Serum or plasma urea nitroge n measurement (mass/volume)Ordered By: Mari Prescott on 02-09-2025 Urea nitrogen [Mass/Vol] 21 mg/dL High 4-19 [facility] Sodium levelOrdered By: Elaine Prescott on 02-09-2025 Sodium [Moles/Vol] 140 mmol/L 133-145 [facility] Total proteinOrdered By: Eusebio Prescott on 02-09-2025 Protein [Mass/Vol] 6.7 g/dL 5.9-8.4 [facility] White blood cell (WBC) count Ordered By: Mari Prescott on 02-09-2025 WBC (Bld) [#/Vol] 4.7 10*3/uL 4.4-11.0 [facility] Hips B/L min 2 views w/ Pelv susana 02-08-2025 Hips B/L min 2 views w/ Pelvis [facility] Imaging Services [address] [place] [address] Hips B/L min 2 views w/ Pelvis MR#: [id number] Acct: [id number] Name: MILES TURNER Rep #: [id number] : 1965 M 59 From: Judd Davis MD PCP: Dr. Vinh Aguilar MD Status: DEP AMB Study: Hips B/L min 2 views w/ Pelvis Date of Exam: 0 02/08/25 Exam# [id number] Ordering Dr: Too Latham DO PROCEDURE: HIPS B/L MIN 2 VIEWS W/ PELVIS 02/08/2025 REASON FOR EXAM: FOLLOW UP LEFT ANA MARIA, RIGHT HIP CHRONIC PAIN TECHNIQUE: Five views of both hips COMPARISON: 12/29/2024 FINDINGS: Bones: No change in the deformity and sclerosis of the superior aspect of the right femoral head possibly from avascular necrosis with collapse. No acute fracture. Joints: No change in joint space narrowing of the right hip joint consistent with moderate arthrosis. Status post left hip arthroplasty. Soft tissues: Soft tissues are unremarkable. 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 Status post left total hip arthroplasty. Reading Location: [id number] CC: Dr. Too Latham DO; Dr. Vinh Aguilar MD Car Checker: Signed Normal [facility] Orthopedic Visit Reporton Orthopedic Visit Report [facility] [address] [place] [address] [place] [address] OFFICE VISIT Date of Service: 02/08/25 MR#: [id number] Acct: [id number] Name: MILES TURNER Rep #: [id number] : 1965 Provider: Dr. Too jones DO Age/Sex: 59/M Location: [facility] [place] Status: Signed Intake Vital Signs 11/04/24 15:56 01/11/25 10:47 Height 5 ft 9.5 in 5 ft 9 in Intake Visit Reasons: left hip Chief Complaint: 6 week post op left hip Accompanied by: Is patient in pain?: No Allergies No Known Allergies Allergy (Verified 02/08/25 10:52) Medications ???Medication ???Instructions ???Recorded ???Confirmed ???Type gemfibrozil 600 mg tablet 600 mg PO BIDAC 01/08/18 02/08/25 History omeprazole 40 mg capsule,delayed 40 mg PO QDAY 07/27/24 02/08/25 Hi story release valsartan 320 1 tab PO QDAY 07/27/24 02/08/25 Hi story mg-hydrochlorothiazi de 25 mg tablet acetaminophen 500 mg tablet 1,000 mg (2 x 500 mg) PO Q6H #100 12/29/24 02/08/25 Rx tabs etodolac 400 mg tablet 400 mg PO BID 02/08/25 02/08/25 Hi story folic acid 1 mg tablet 1 mg PO QDAY 02/08/25 02/08/25 His tory methotrexate sodium 15 mg tablet 25 mg PO QWEEK 02/08/25 02/08/25 H istory [facility] Medical History Wears glasses Colonoscopy planned Gastric reflux History of stress test Former smoker Surgical History History of total left hip replacement Family History Mother Heart disease Diabetes Father Heart disease Social History household members: spouse Smoking Status: Former smoker alcohol intake: current alcohol intake frequency: holidays/special occasions only HPI left hip Details: This documentation accurately reflects the service provided and the decisions made by me, Dr. Too Latham, DO 02/08/25 0810. Part of today???s visit was documented by Kimberly Ariza ATC, acting as scribe. MILES TURNER is a 59 year old M here today for s/p left total hip arthroplasty DOS 12/29/2024. Patient denies any pain in the left hip and states he is doing well after surgery. He ambulates with a cane today. Patient states the right hip is bothering him and he states since surgery it has gotten worse. He states he can barely put any weight on it and physical therapy seems to be aggravating it more. He describes the pain in the groin and he will feel the pain in the back of the hip and into the lumbar spine. He denies any numbness/tingling down the leg. He had an injection with the [facility] in the hip about a year ago and he didn't get any relief from it. He denies any prior surgery to the right hip. Ortho Exam General General: Yes no acute distress and Yes well groomed Neurologic: Yes alert and Yes oriented x3 Psychologic: Yes reasonable and appropriate Right Hip Skin: Yes CDI, No Ecchymosis, No soft tissue swelling and No Erythema HIP: good sensation in lower leg No gross motor or sensory deficits Groin pain with hip range of motion He is able to ambulate with a cane IR -10 ER 10 Left Hip Skin/Wound: Yes CDI, No Ecchymosis, No soft tissue swelling and No Erythema Hip: Absent eccymosis, soft tissue swelling or erythema HIP: good sensation in lower leg Supplemental Info 02/08/2025 x-ray bilateral hips: Status post left total hip arthroplasty with good interfaces and position; right hip has severe end-stage arthrosis with flattening of the femoral head, x-ray last 12/29/2024 left total hip arthroplasty: Dr. Latham 07/27/2024 x-ray right knee: Advanced knee arthrosis there is subluxation of the tibia laterally Advanced knee arthrosis there is subluxation of the tibia laterally advanced varus deformity 07/27/2024 x-ray left knee: Advanced knee arthrosis there is subluxation of the tibia laterally advanced varus deformity 06/01/2024 x-ray pelvis: Advanced bilateral hip arthrosis [id number] with bony erosion large cystic changes of the femoral head and acetabulum Coding Level of Care Code Off vis,est,level 4 Diagnoses Avascular necrosis of right femur M87.051 Laterality: right Rheumatoid arthritis involving both hips with positive rheumatoid factor M05.751; M05.752 Rheumatoid arthritis location: hip Rheumatoid factor presence: with rheumatoid factor Laterality: bilateral Assessment and Plan Assessment and Plan (1) AVN of femur: Status: Acute Qualifiers: Laterality: right Qualified Code(s): M87.051 - Idiopathic aseptic necrosis of right femur (2) Rheumatoid arthritis: Status: Acute Qualifiers: Rheumatoid arthritis location: hip Rheumatoid factor presence: with rheumatoid factor Laterality: bilateral Qualified Code(s): M05.751 (more content not included)... [facility] Orthopedic Visit Reporton Orthopedic Visit Report [facility] [address] [place] [address] OFFICE VISIT Date of Service: 01/11/25 MR#: [id number] Acct: [id number] Name: MILES TURNER Rep #: [id number] : 1965 Provider: Dr. Too jones DO Age/Sex: 59/M Location: [facility] Status: Signed Intake Vital Signs 11/04/24 15:56 12/29/24 06:05 01/11/25 10:47 Height 5 ft 9.5 in 5 ft 9 in 5 ft 9 in Weight: 256 lb BMI 37.8 Intake Visit Reasons: left hip Chief Complaint: 2 week post op left hip Accompanied by: Is patient in pain?: No Allergies No Known Allergies Allergy (Verified 01/11/25 10:50) Medications ???Medication ???Instructions ???Recorded ???Confirmed ???Type gemfibrozil 600 mg tablet 600 mg PO BIDAC 01/08/18 01/11/25 History omeprazole 40 mg capsule,delayed 40 mg PO QDAY 07/27/24 01/11/25 Hi story release valsartan 320 1 tab PO QDAY 07/27/24 01/11/25 Hi story mg-hydrochlorothiazi de 25 mg tablet acetaminophen 500 mg tablet 1,000 mg (2 x 500 mg) PO Q6H #100 12/29/24 01/11/25 Rx tabs apixaban 2.5 mg tablet (Eliquis) 2.5 mg PO BID #42 tabs 12/29/24 Rx Have you fallen in the past year?: No PFSH Medical History Wears glasses Colonoscopy planned Gastric reflux History of stress test Former smoker Surgical History History of total left hip replacement Family History Mother Heart disease Diabetes Father Heart disease Social History household members: spouse Smoking Status: Former smoker alcohol intake: current alcohol intake frequency: holidays/special occasions only HPI left hip Details: This documentation accurately reflects the service provided and the decisions made by me, Dr. Too Latham, DO 01/11/25 0757. Part of today???s visit was documented by Julisa Ariza MA, acting as scribe. MILES TURNER is a 59 year old M here today for 2 week post op left hip. He has been doing pt, it has been going pretty well. Patient is having more pain in the right hip, because he's not taking the medication for the arthritis.He is a little sore from the rex. He has not been washing the incision as instructed however they have been applying bandages with lots of tape. Ortho Exam General General: Yes no acute distress Neurologic: Yes alert and Yes oriented x3 Psychologic: Yes reasonable and appropriate Left Hip Skin/Wound: No Ecchymosis, No soft tissue swelling and No Erythema Hip: Absent eccymosis, soft tissue swelling or erythema HIP: Left hip incision well-approximated there is a small spot of serous fluid on the bandage there is a small area of superficial dehiscence however I can appreciate the underlying tissue has healed over. No sign of infection or DVT [place] were removed today is neurovascular intact left lower extremity there is no significant swelling in the lower extremity he is neurovascular intact Supplemental Info 12/29/2024 left total hip arthroplasty: Dr. Latham 07/27/2024 x-ray right knee: Advanced knee arthrosis there is subluxation of the tibia laterally Advanced knee arthrosis there is subluxation of the tibia laterally advanced varus deformity 07/27/2024 x-ray left knee: Advanced knee arthrosis there is subluxation of the tibia laterally advanced varus deformity 06/01/2024 x-ray pelvis: Advanced bilateral hip arthrosis [id number] with bony erosion large cystic changes of the femoral head and acetabulum Coding Level of Care Code Global Post Op Diagnoses Orthopedic aftercare Z47.89 Assessment and Plan Assessment and Plan (1) Orthopedic aftercare: Status: Acute Plan Patient is here today for 2 week post-op left total hip arthroplasty dos: 12/29/24. Patient may discontinue the compression stockings as he has little to no swelling in his leg. He may resume the methotrexate on 01/16/25 but should wait to resume taking any NSAIDs such as Ibuprofen or Celebrex until after he finishes the Eliquis. He should wash his incision daily with soap and water. At this point patient can resume driving if his vehicle is an automatic, he is not distracted by pain or take the narcotic pain medication. I did review hip precautions today with patient and his . Follow up in 4 weeks for 6 weeks post-op or sooner if pain, swelling, numbness or associated symptoms, or concerns develop. All questions answered. Patient in agreement of plan. Clinical Quality Measures Falls Risk Screening/Assistive Devices Have you fallen in the past year?: No 01/11/25 1133 Date Too Latham DO (more content not included)... [facility] Inital Evaluation (1) - PTon 01-01-2025 Inital Evaluation (1) - PT [facility] [address] [place] [address] / REHABILITATION SERVICES INITIAL EVALUATION MR#: [id number] Acct: [id number] Name: MILES TURNER Rep #: [id number] : 1965 59 From: James Reyes PT, ATC Referring Dr.: Dr. Too Latham DO Status: R EG RCR Insurance: [employer] SELF PAY INSURANCE Patient's Visit Information Visit Information Visit Information: MILES TURNER is a 59 year old M referred to Physical Therapy by Dr. Too Latham DO with a diagnosis of L ANA MARIA 12/29/24. Date of Evaluation: 01/01/25 Physical Therapist: James Reyes, PT, ATC Visit Plan Frequency: 2x /Week Duration: 4-6 Weeks Plan: L LE strengthening, balance and proprio, core strengthening, stair negotiation, gait training, and HEP Subjective Subjective: DOS: 12/29/24. Pt reports he had his L ANA MARIA performed at that time. Pt notes his L hip progressively worsened over this time span. Pt notes he had severe pain at times prior to surgery. Pt reports he still has a lot of pain at this time, but the pain is mostly incisional. Pt denies any L LE tingling or numbness at this time. Pt reports his pain is still waking him up at this time. 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 Pt notes he has been very compliant with following his movement restrictions at this time. Pt lives in a one story house, so he has not had to negotiate stairs at this time. 2/10 pain while sitting here at rest, 9/10 pain at worst (when he wakes up in the morning before he gets his meds) Pain L hip: Pain Intensity (Out of 10): 2 Objective Objective: Neuro: B LE sensation is WNL to light touch TU.6 sec Observation: Incision is stil healing. No signs of infection. ROM: R hip flex= 60, ext= 10; L hip flex= 30, ext= 0 degrees MMT: R hip flex= 29, ext= 31; L hip flex= 12, ext= 17 #F Balance/Special Test Scores WOMAC Total Score: 73 WOMAC Percentatge: 23.9600 Goals Goal 1:: Decrease L hip pain x 50% to aid with sleep Goal Time Frame: 4-6 Weeks Goal 2:: Increase L hip strength x 10#F to aid with stair negotiation Goal Time Frame: 4-6 Weeks Goal 3:: Increase L hip flexion x 20 degrees to aid with bath transfers Goal Time Frame: 4-6 Weeks Goal 4:: I with HEP Goal Time Frame: 4-6 Weeks Rehabilitation Potential Physical Therapy Diagnosis: Pt has L hip pain, weakness, and limited ROM secondary to L ANA MARIA Rehabilitation Potential: Good Anticipated Interventions Patient/Client Instruction: Educate patient on: Condition and Plan of Care For the Purpose of:: To improve self management Therapeutic Exercise to Include: Strength training, Endurance training, Balance training, Gait and locomotor training and Dynamic Lumbar Stabilization For the Purpose of:: To decrease pain, To increase ROM and To improve muscle performance and motor function Cryotherapy (ice pack, ice massage): Yes For the Purpose of:: To decrease pain Text: Thank you for the opportunity to evaluate your patient. For Medicare and Medicare HMO plans, please review the plan of care and approve it. It will need to be FAXED BACK to us at [phone] for Medicare purposes. For Medicare only, by signing this I certify the plan of care. Please let me know if there are questions or concerns regarding this plan of care. Physician Signature: D ate: 01/01/25 1338 CC: Dr. Too Latham DO; Dr. Vinh Aguilar MD [facility] Signed [facility] Bedside Glucoseon 12-29-2024 FINGERSTICK GLU 82 mg/dL Normal 74-106 [facility] Comment on above: Result Comment: GUILLERMINA ROJAS OF PATIENT CARE PER NURSING PROTOCOL Performed By: #### L 501.080 #### [facility] [place], [address] Decalcification bone/plaqueo n 12-29-2024 Decalcification bone/plaque Patient Age/Sex Location Account Attending Physician MILES TURNER 59/M [facility] [id number] Dr. Too Latham, DO Specimen: [id number] Received: 12/29/24 Status: BECKA Reynolds Num: [id number] Spec Type: FEM HEAD Subm Dr: Dr. Too Latham, DO HEAD OPERATION: ERAS, left total hip replacement robotic arm assisted PRE-OP DIAGNOSIS: Rheumatoid arthritis, degenerative joint disease of left hip TISSUE SUBMITTED: A- Left femoral head MICROSCOPIC DIAGNOSIS A. Femoral head, left, total hip arthroplasty: * Articular bone with osteoarthritic reactive/degenerativ e changes. MICROSCOPIC DESCRIPTION Slides are reviewed. GROSS DESCRIPTION A. Received in fixative is one container labeled with the patient's name and designated Left femoral head. The specimen consists of a femoral head measuring 5.5 x 5.5 x 6.3cm and multiple fragments of bone measuring 6 x 6 x 2.8cm in aggregate. Fur Matcher sections submitted in two cassettes after decalsification. 12/29/2024 CPT:56685,61996 Patient Age/Sex Location Account Attending Physician MILES TURNER 59/M [facility] [id number] Dr. Too Latham DO Signed (signature on file) Dr. Meg Garay MD 01/04/25 1642 [facility] Comment on above: Performed By: #### L 100.0100, L500.4050 #### [facility] [address] [place], [address] Discharge Instructionon 12-12 Discharge Instruction [facility] Medical Records Department [address] [place] [address] Instructions for Home/Discharge Instructions 12/29/24 1006 MR#: [id number] Acct: [id number] Name: MILES TURNER Rep #: [id number] : 1965 59 From: Too Latham DO PCP: Dr. Vinh Aguilar MD Status:REG [facility] Discharge Instructions Diet Discharge Diet: No restrictions Activity Weight Bearing Status: Full weight bearing Dressing / Incision Call your doctor if you observe: Shortness of breath and Chest pain Additional Dressing/Incision Instructions:: Do not shower 72hrs. Begin daily showering warm water antibacterial soap postop day #3( 72hrs Post-operatively) and then daily. Leave the dressing on for 72 hours postoperatively then may remove prior to first shower and change dressing daily after this until no drainage for 2 consecutive days then may leave open to air. Follow hip precautions that were reviewed in hospital. Wear compression stockings, may remove at night. Start physical therapy as directed in hospital. Follow prescriptions instructions do not take any other pain medication or differ dosing without consulting your physician. Do not take oral NSAIDs until blood thinner has been completed , then may begin the day after completion if needed . Call Dr. Latham's office with any concerns. Follow Up Care Please Follow Up With: Too Latham DO When: 2 weeks Test Results: Test results from this visit will be discussed in further detail at your follow-up appointment, if applicable. Discharge Plan Admission Primary Reason for Your Visit: Left total hip arthroplasty Attending Provider: Too Latham Primary Care Provider: Vinh Aguilar Instructions Print Language: [place] Discharge Orders/Prescriptions Prescriptions: New acetaminophen 500 mg tablet 1,000 mg PO Q6H Qty: 100 1RF cephalexin 500 mg capsule 1,500 mg PO Q8H Qty: 6 0RF Rx Instructions: Take 3 tabs before you go to bed and 3 tabs after 5 AM morning after surgery when you wake up Eliquis 2.5 mg tablet 2.5 mg PO BID Qty: 42 0RF Rx Instructions: Begin morning after surgery. oxycodone 5 mg tablet 5 - 10 mg PO Q4H PRN (Reason: pain) 7 Days Qty: 60 0RF Continued valsartan-hydrochlor othiazide 320-25 mg tablet 1 tab PO QDAY omeprazole 40 mg capsule,delayed release(DR/EC) 40 mg PO QDAY folic acid 1 mg tablet 1 mg PO QDAY cholecalciferol (vitamin D3) 50 mcg (2,000 unit) capsule 50 mcg PO QDAY Rx Instructions: Unsure dose. High Potency leucovorin calcium 15 mg tablet 15 mg PO DAILY prednisone 5 mg tablet 5 mg PO QAM gemfibrozil 600 MG tablet 600 mg PO BIDAC Held etodolac 400 mg tablet 400 mg PO BID Hold Instructions: May resume after completion of blood thinner Patient Comments: STOP 12/23/24 BEFORE SURGERY 12/29/24 methotrexate sodium 2.5 mg tablet 20 mg PO SA Hold Instructions: Hold the next 2-week doses tramadol 50 mg tablet 50 mg PO Q12H PRN (Reason: pain) Hold Instructions: Do not take while on other narcotics that were provided fish oil-dha-epa 1 EACH capsule 1 ea PO DAILY Hold Instructions: And resume after completion of blood thinner Patient Comments: STOP 12/23/24 BEFORE SURGERY 12/29/24 Other Ambulatory Orders: 12 Lead EKG (Routine) Timeframe: 20241221 Location: None Selected Ordered By: Dr. Too Latham Referrals / Follow Up: Vinh Aguilar MD [Primary Care Provider] - Disposition Disposition (needs filled in before D/C Order can be placed): Home, Self Care 12/29/24 1015 Too Latham DO CC: Dr. Vinh Aguilar MD Signed [facility] Glucose measurement at bedsi deOrdered By: Too Latham on 12-29-2024 Bedside Glucose (Misc Panel) 82 mg/dL 74-106 [facility] Comment on above: MANAGEMENT OF PATIEN T CARE PER NURSING PROTOCOL Glucose [Mass/Vol] 82 mg/dL 74-106 [facility] Comment on above: MANAGEMENT OF PATIEN T CARE PER NURSING PROTOCOL Hip Min 2 Views (Portable)on 12-29-2024 Hip Min 2 Views (Portable) [facility] Imaging Services [address] [place] [place] [address] Hip Min 2 Views (Portable) MR#: [id number] Acct: [id number] Name: MILES TURNER Rep #: [id number] : 1965 M 59 From: Abdifatah Mauro MD PCP: Dr. Vinh Aguilar MD Status: REG [facility] Study: Hip Min 2 Views (Portable) Date of Exam: 12/29 Exam# [id number] Ordering Dr: Too Latham DO EXAM: XR Left Hip With Pelvis When Performed, 1 View CLINICAL INDICATION: POST OP TECHNIQUE: Frontal view of the left hip with pelvis when performed. COMPARISON: No relevant prior studies available. FINDINGS: BONES/JOINTS: Total hip replacement. Intact hardware. No acute fracture. No dislocation. SOFT TISSUES: Soft tissue emphysema and swelling. RAD/Hip Min 2 Views (Portable) IMPRESSION: Status post total hip replacement in anatomic position. Reading [facility] CC: Dr. Too Latham DO; Dr. Vinh Aguilar MD Car Checker: Signed [facility] MR/POSTOP.ANEon 12-29-2024 MR/POSTOP.[facility] Medical Records Department [address] [place] [address] Anesthesia Postop Eval I 12/29/24 0958 MR#: [id number] Acct: [id number] Name: MILES TURNER Rep #: [id number] : 1965 59 From: Magdalena Beach RIVET CATCHER PCP: Dr. Vinh Aguilar MD Status:REG [facility] Y Race: C Location: [place] [address] ADDENDUM by RIVET CATCHER Magdalena Beach on 12/29/24 at 1004 Addendum Fentanyl 50 mcg given 09:[address] to PACU 12/29/24 1004 Date Magdalena Beach RIVET CATCHER cc: * Signed Anesthesia: Postop Eval I Current Vital Signs Temperature: 97.5 F Pulse Rate: 73 Blood Pressure: 136/75 Respiratory Rate: 20 Pulse Ox: 98 Oxygen Delivery Method: Room Air Assessment Airway patent: Yes Spontaneous unlabored respirations: Yes Mental status: Awake nausea: No Vomiting: No Anesthesia Complication: No Fluid Hydration Crystalloid volume administer (ml): 2,600 Total IV fluid infused: 2,600 Progress Note Anesthesia document: Postop Eval 1 completed: Yes 12/29/24958 Date Magdalena Beach RIVET CATCHER Cosigner Signature: Date CC: Signed [facility] MR/[id number] 12-29-2024 [facility] Medical Records Department [address] [place] [address] Anesthesia Postop Eval II 12/29/24 1111 MR#: [id number] Acct: [id number] Name: MILES TURNER Rep #: [id number] : 1965 59 From: Bobo Diamond MD PCP: Dr. Vinh Aguilar MD Status:REG [facility] Y Race: C Location: [facility] Anesthesia Postop Eval I Sum Postop Eval Completion status Anesthesia document: Postop Eval 1 completed: Yes Anesthesia Postop Eval I Summary Anesthesia Postop Eval I Summary: Anesthesia Postop Eval I: Assessment Summary Airway patent Yes 12/29/24 09:59 [email or web address] Spontaneous unlabored Yes 12/29/24 09:59 [email or web address] [email or web address] respirations Mental status Awake 12/29/24 09:59 [email or web address] nausea No 12/29/24 09:59 [email or web address] [email or web address] Vomiting No 12/29/24 09:59 [email or web address] Anesthesia Postop Eval I: Fluid Summary Crystalloid volume administer 2,600 12/29/24 09:59 [email or web address] [email or web address] (ml) Colloids volume administered ( ml) Blood Product volume administered (ml) Total IV fluid infused 2,600 12/29/24 09:59 [email or web address] Anesthesia Postop Eval I: Summary Notes Anesthesia Complication No 12/29/24 09:59 [email or web address] Anesthesia Complication Comment: Post-operative progress note Anesthesia: Postop Eval II Evaluation Mental status: Awake Pain Level: 0 nausea: No Vomiting: No Complications Anesthesia Complication: No 12/29/24 1111 Date Bobo Diamond MD Cosigner Signature: Date CC: Signed [facility] Operative Reporton 5 Operative Report [facility] Medical Records Department [address] [place] [address] Operative Report 12/29/24 1002 MR#: [id number] Acct: [id number] Name: MILES TURNER Rep #: [id number] : 1965 59 From: Too Latham DO PCP: Dr. Vinh Aguilar MD Status:REG [facility] Location: [place] [address] Operative Report (Standard) Operative Information Date of Procedure: 12/29/24 Pre-Operative Diagnosis: Left hip DJD rheumatoid arthritis Post-Operative Diagnosis: Same Surgery/Procedure Performed: Left total hip arthroplasty concert promoter: Yes Housing Liaison: Moshe Chen Tasks completed by warehouse assistant: Opening closing Additional industrial hire sales assistant?: No Type of Anesthesia: Spinal RN Documented Start/Stop Times: Operation Date: 12/29/24 07:30 Case Time Into Pre-Op 12/29/24 05:35 Out of Pre-Op 12/29/24 07:35 Anesthesia Start 12/29/24 07:39 Into Room 12/29/24 07:39 Procedure Start 12/29/24 08:13 Procedure End 12/29/24 09:46 Anesthesia End 12/29/24 09:51 Out of Room 12/29/24 09:51 Into Recovery 12/29/24 09:59 Procedure Start Time: 08:13 Procedure Stop Time: 09:46 Select all DRAINS/GRAFTS/IMPLAN TS that apply: Implanted device Implanted device details: Skidmore Estimated Blood Loss: 125 Specimen collected: Yes Description of specimen(s) removed: Femoral head Description of surgery: Preoperative diagnosis: Left hip DJD rheumatoid arthritis Postoperative diagnosis: Same Procedure: CT-guided Makoplasty assisted left total hip arthroplasty Implants: Skidmore Accolade II stem size 6, 127 degree neck angle +2.5 head neck length 56 mm Trident II acetabular shell with 40 mm cancellous screw 36 mm ceramic head, 10 degree Trident X3 polyethylene insert. Anesthesia: Spinal EBL: 125 cc Complications: None Condition: Stable to PACU Commercial Appraiser Moshe Chen. My physician industrial hire sales assistant was a vital part of this case. He was important in appropriate retraction during the case, and protection of soft tissues during procedure. His intimate knowledge of the case and my steps aided in safe and expedient completion of the procedure as well as appropriate position of the extremity during the case. He was also vital in assisting with closure under my direct supervision. Indication for procedure: This is a 59-year-old male who has had long-standing arthrosis of the hip who has failed conservative treatment and wished to undergo total hip arthroplasty. We did discuss operative versus nonoperative intervention including risks of bleeding, infection , nerve artery tissue damage, need for further surgery, fracture, leg length discrepancy dislocation blood clot and need for postoperative physical therapy and postoperative expectations. An informed consent was signed. Procedure: Patient was met in the preoperative holding area once again the operative extremity was identified by both patient and physician and was marked. Patient was met by anesthesia . Anesthesia was started. patient was then positioned in the lateral decubitus position on a well-padded pegboard with an axillary roll. All bony prominences were checked and padded. The patient was prepped and draped in the usual sterile fashion. A timeout was called to ensure the proper patient procedure and extremity were being contemplated. Anatomic landmarks were palpated and marked for a standard posterior lateral approach. Prior to this the ASIS was palpated and 3 fingerbreadths proximal to this 3 pins were placed at a 45 degree angle into the iliac crest with good purchase, stab incisions were made with a 15 blade into the skin prior to placement. The Makoplasty array was then secured. A 10 blade scalpel was used to make a posterior incision through the skin and subcutaneous tissue. retractors were used and electrocautery was used to maintain meticulous hemostasis and dissect full-thickness flaps until the gluteal fascia was reached. The gluteal fascia was incised in line with the gluteal fibers. The bursal tissue was then freed from the underside and a Charnley retractor was placed. The femoral trochanteric checkpoint was placed and leg length was assessed using the trochanteric checkpoint and an EKG lead that was placed on the knee prior to prepping the leg .the fat pad was then elevated off of the external rotators with electrocautery and the external rotators were dissected off of the greater trochanter including the piriformis and were tagged with #1 Ethibond for later repair. The joint capsule opened with posterior trapdoor technique. The hip was surgically dislocated. The measurement on the preoperative CT from the top of the lesser trochanter to the femoral neck cut was marked Hohmann was placed around the lesser trochanter. A neck cutting guide was used to abdifatah the neck with a Bovie and an oscillating saw was used complete the femoral neck cut. The (more content not included)... Normal [facility] Fructosamineon 12-22-2024 FRUCTOSAMINE 211 umol/L Normal 0-285 [facility] Comment on above: Result Comment: Publ ished reference interval for apparently healthy subjects between age 20 and 60 is 205 - 285 umol/L and in a poorly controlled diabetic population is 228 - 563 umol/L with a mean of 396 umol/L. Performed at: - [address] [id number] Saw Repairer: Jamey Garcia PhD, Phone: [phone] Performed By: #### B TSPAT, L501.5200, L300.4310, L300.3900, M100.651, L3400.0100, L501.9985 ####[facility] [address] [place], [address] MRSA/SAID NASAL SCREENon MRSA+SAID SCRN Reason for Exam: PREOP MRSA MRSA Negative S. AUREUS S. aureus Negative Normal [facility] Comment on above: Performed By: #### B TSPAT, L501.5200, L300.4310, L300.3900, M100.651, L3400.0100, L501.9985 ####[facility] [address] [place], [address] 12 Lead EKGon 12-21-2024 12 Lead E[address] [facility] Cardiovascular Services [address] [place] [address] 12 Lead EKG 12/21/24 0741 MR#: [id number] Acct: [id number] Name: MILES TURNER Rep #: [id number] : 1965 59 From: Jose Luis Long MD Attending Dr: Dr. Too Latham, Status: [place] [facility] Ordering [place]: Too Latham DO Date: 12/21/24 Location: [facility] Sex: M C Admitted: Test Reason : PREOP Blood Pressure : */* mmHG Vent. Rate : 70 BPM Atrial Rate : 70 BPM P-R Int : 178 ms QRS Dur : 86 ms QT Int : 344 ms P-R-T Axes : 50 61 68 degrees QTcB Int : 371 ms Normal sinus rhythm Normal ECG Confirmed by Jose Luis Long ([id number]), film editor VALORIE YU ([id number]) on 12/21/2024 11:05:19 AM Referred By: Too Latham Confirmed By: Jose Luis Long 12/21/24 1105 Date Jose Luis Long MD CC: Dr. Too Latham, DO; Dr. Vinh Aguilar MD Signed Normal [facility] Activated partial thrombopla stin time (aPTT) in platelet poor plasma by coagulation aOrdered By: Too Latham on 12-21-2024 aPTT Coag (PPP) [Time] 27.6 s 24.1-36.2 [facility] CNOVon 12-21-2024 CNOV Office Visit (INTMWS) MILES TURNER ([id number]) 1965 M [facility] Date Time Provider Department 12/21/24 5:20 PM VINH AGUILAR INTMWS During your visit today, we recorded the following information about you: Temperature Pulse Respiration Blood pressure 98 degrees 72/minute 18/minute 116/78 Weight 117.3 kg Vinh Aguilar MD 12/22/2024 12:36 PM Signed Consultation requested by Dr. Too Latham for an opinion regarding preoperative examination and optimization. My final recommendations will be communicated back to the requesting physician by way of shared Medical record or facsimile with accompanying form. Patient is scheduled for left total hip on 12/29/24. Anesthesia: general anesthesia Cardiovascular risk factors: Yes Hypertension? Yes. 2. Smoking? No. 3. High cholesterol? Yes. 4. Diabetes? No. 5. Obesity? No. 6. Family history of premature CAD? No. Cardiovascular Disease or Symptoms? No CAD? No CHF? No PAD? No CVA? No If POSITIVE, does patient have any of the following? Acute coronary syndrome? Unstable arrhythmias? Decompensated CHF? No If POSITIVE, refer for consultation(s) and multidisciplinary team discussion. If NEGATIVE, estimate perioperative risk. [place] Activity Status Index Score: 42.7. (34 or less, consider further testing). METs: 7.99 metabolic equivalents. (4 or less, consider further testing) Does patient have any of the following risk modifiers? Severe valvular heart disease. Severe pulmonary hypertension . Elevated risk congenital heart disease. Prior coronary stents or CABG. Recent stroke. CIED (Pacemaker/ICD) Frailty. No ACS NSQIP Surgical Risk Calculator: Above average risk for : site infection, renal failure, . Average risk for: thromboembolism. Below average risk for : all other outcomes. ACTIVE PROBLEM LIST Allergic Rhinitis Due to Other Allergen Essential Hypertension Primary Osteoarthritis of Both Knees Hypertriglyceridemia Obesity, Class Iii, Bmi 40-49.9 (Morbid Obesity) (Hcc) Family History of Colon Cancer Gastroesophageal Reflux Disease Without Esophagitis Primary Osteoarthritis of Both Hips History of Compression Fracture of Spine Vitamin D Deficiency Elevated Ferritin Inflammatory Polyarthropathy of Multiple Sites (Hcc) Social History Tobacco Use Smoking status: Former Current packs/day: 0.00 Average packs/day: 1 pack/day for 30.0 years (30.0 ttl pk-yrs) Types: Cigarettes Start date: 05/14/1979 Quit date: 05/14/2009 Years since quittin.6 Smokeless tobacco: Never Tobacco comments: states smokes cigar occasionally Vaping Use Vaping status: Never Used Substance Use Topics Alcohol use: Yes Alcohol/week: 10.0 standard drinks of alcohol Types: 10 Cans of beer per week Comment: 6 beers a week Drug use: No Current Outpatient Medications Medication Sig methotrexate 2.5 mg tablet take 8 tablets by mouth every week predniSONE (DELTASONE) 5 mg tablet Take 5 mg by mouth every morning. traMADol (ULTRAM) 50 mg tablet Take 50 mg by mouth every 8 hours as needed. etodolac (LODINE) 400 mg tablet Take 1 tablet by mouth two times a day. Valsartan-hydroCHLOR Othiazide 320-25 mg per tablet Take 1 tablet by mouth once daily. omeprazole (PRILOSEC) 40 mg capsule Take 1 capsule by mouth once daily. gemfibrozil (LOPID) 600 mg tablet Take 1 tablet by mouth two times a day. cholecalciferol, vitamin D3, (VITAMIN D3 ORAL) Take 5,000 Units by mouth once daily. acetaminophen (TYLENOL) 500 mg tablet Take 1 tablet by mouth every 6 hours as needed for Pain. Coral-3 Fatty Acids (FISH OIL) 500 mg cap Take 500 mg by mouth once daily. mv-min/folic/K1/lyco pen/lutein (MEN 50 PLUS MULTIVITAMIN ORAL) Take 1 tablet by mouth once daily. TURMERIC ORAL Take 1,000 mg by mouth two times a day. (Patient not taking: Reported on 12/21/2024) COLLAGEN MISC 2 teaspoonsful once daily. (Patient not taking: Reported on 12/21/2024) No current facility-administere d medications for this visit. BP 116/78 (BP Site: Left Arm, BP Position: Sitting, BP Cuff Size: Large Adult) Pulse 72 Temp 36.7 ?C (98 ?F) (Temporal) Resp 18 Wt 117.3 kg (258 lb 9.6 oz) BMI 37.02 kg/m? PHYSICAL EXAM: General Appearance: Well appearing, alert, in no acute distress. Eyes: Anicteric sclera. Pupils are equally round and reactive to light. Extraocular movements are intact. . Nose/Sinuses: Negative. Oropharynx: Lips, mucosa, and tongue normal, teeth and gums normal, oropharynx normal. Neck: Supple, no adenopathy; thyroid symmetric, normal size, no bruits. Lungs: Lungs clear to auscultation. No wheezing, rhonchi, rales.. Heart: RRR without murmur, gallop, or rubs. No ectopy. Abdomen: Abdomen soft, non-tender. Bowel sounds normal. No masses, organomegaly. Extremities: No deformities, edema, skin discoloration, clubbing or cyanosis (more content not included)... Normal [facility] Electrocardiogram reportOrde red By: Jose Luis Long on 12-21-2024 EKG study [facility] Cardiovascular Services [address] [place] [address] 12 Lead EKG 12/21/24 0741 MR#: [id number] Acct: [id number] Name: MILES TURNER Rep #:[id number] : 1965 59 From: Jose Luis goodman MD Attending Dr: Dr. Too Latham DO Status: PRE [facility] Ordering Dr: Too Latham DO Date: 12/21/24 Location: [facility] Sex: M C Admitted: Test Reason : PREOP Blood Pressure : */* mmHG Vent. Rate : 70 BPM Atrial Rate : 70 BPM P-R Int : 178 ms QRS Dur : 86 ms QT Int : 344 ms P-R-T Axes : 50 61 68 degrees QTcB Int : 371 ms Normal sinus rhythm Normal ECG Confirmed by Jose Luis Long ([id number]), film editor VALORIE YU ([id number]) on 12/21/2024 11:05:19 AM Referred By: Too Latham Confirmed By: Jose Luis Long 12/21/24 1105 Date _ Jose Luis Long MD CC: Dr. Too Latham, DO; Dr. Vinh Aguilar MD ~ Signed [facility] Other Phone: FructosamineOrdered By: Marcus Latham on 12-21-2024 Fructosamine 211 umol/L 0-285 [facility] Comment on above: Published reference interval for apparently healthysubjects between age 20 and 60 is 205 - 285 umol/L and in apoorly controlled diabetic population is 228 - 563 umol/Lwith a mean of 396 umol/L.Performed at: [facility] [address] [id number] Director: Jamey Garcia PhD, Phone: [phone] Hemoglobin A1con 12-21-2024 HbA1c (Bld) [Mass fraction] 5.2 % Low <=5.6 [facility] Comment on above: Performed By: #### B TSPAT, L501.5200, L300.4310, L300.3900, M100.651, L3400.0100, L501.9985 ####[facility] [address] [place], [place], [address] Hemoglobin A1c percentageOrd ered By: Too Latham on 12-21-2024 HbA1c (Bld) [Mass fraction] 5.2 % Low >5.7 [facility] normalized rat io (INR) calculationOrdered By: Too Latham on 12-21-2024 INR Coag (Bld) [Relative time] 1.0 {INR} [facility] MRSA screenOrdered By: Bin Latham on 12-21-2024 MRSA DNA ALEXANDREA+probe Ql (Unsp spec) [facility] Nasal Screen MRSA/MSSA [facility] Magnesiumon 12-21-2024 Magnesium [Mass/Vol] 2.2 mg/dL Normal 1.5-2.2 [facility] Comment on above: Performed By: #### B TSPAT, L501.5200, L300.4310, L300.3900, M100.651, L3400.0100, L501.9985 ####[facility] [address] [place], [place], [address] Magnesium (Unsp spec) [Mass/ Vol]Ordered By: Too Latham on 12-21-2024 Magnesium [Mass/Vol] 2.2 mg/dL 1.5-2.2 [facility] Magnesium measurement (mass/ volume)Ordered By: Too Latham on 12-21-2024 Magnesium (Unsp spec) [Mass/Vol] 2.2 mg/dL 1.5-2.2 [facility] Partial Thromboplast Timeon 12-21-2024 aPTT Coag (Bld) [Time] 27.6 s Normal 24.1-36.2 [facility] Comment on above: Performed By: #### B TSPAT, L501.5200, L300.4310, L300.3900, M100.651, L3400.0100, L501.9985 ####[facility] [address] [place], [phone]) Prothrombin Time w/INRon INR Coag (PPP) [Relative time] 1.0 {INR} Normal [facility] Comment on above: Performed By: #### B TSPAT, L501.5200, L300.4310, L300.3900, M100.651, L3400.0100, L501.9985 ####[facility] [address] [place], [address] PT Coag (PPP) [Time] 12.8 s Normal 11.7-14.9 [facility] Comment on above: Performed By: #### B TSPAT, L501.5200, L300.4310, L300.3900, M100.651, L3400.0100, L501.9985 ####[facility] [address] [place], [address] Prothrombin timeOrdered By: Too Latham on 12-21-2024 PT Coag (PPP) [Time] 12.8 s 11.7-14.9 [facility] Type AND Screen - PAT ONLYon 12-21-2024 Ab SCREEN GEL Negative Normal [facility] Comment on above: Order Comment: Reaso n for Laboratory Test [id number] TOTAL HIP ARTHROPLASTY Performed By: #### B TSPAT, L501.5200, L300.4310, L300.3900, M100.651, L3400.0100, L501.9985 ####[facility] [address] [place], [address] aPTT Coag (PPP) [Time]Ordere d By: Too Latham on 12-21-2024 aPTT Coag (Bld) [Time] 27.6 s 24.1-36.2 [facility] Orthopedic Visit Reporton Orthopedic Visit Report [facility] [address] [place] [address] [address] [place] [address] OFFICE VISIT Date of Service: 12/16/24 MR#: [id number] Acct: [id number] Name: MILES TURNER Rep #: [id number] : 1965 Provider: Dr. Too jones DO Age/Sex: 59/M Location[place] [facility] Status: Signed Intake Vital Signs 11/04/24 15:56 Height 5 ft 9.5 in Weight: 265 lb 6 oz BMI 38.6 Intake Visit Reasons: BILATERAL KNEES Allergies No Known Allergies Allergy (Verified 12/16/24 16:00) Medications ???Medication ???Instructions ???Recorded ???Confirmed ???Type fish oil-dha-epa 1,200 mg-144 1 ea PO DAILY 01/08/18 12/16/24 Hi story mg-216 mg capsule gemfibrozil 600 mg tablet 600 mg PO BIDAC 01/08/18 12/16/24 History cholecalciferol (vitamin D3) 50 50 mcg PO QDAY 07/27/24 12/16/24 H istory mcg (2,000 unit) capsule etodolac 400 mg tablet 400 mg PO BID 07/27/24 12/16/24 Hi story folic acid 1 mg tablet 1 mg PO QDAY 07/27/24 12/16/24 His tory leucovorin calcium 15 mg tablet 15 mg PO DAILY 07/27/24 12/16/24 H istory methotrexate sodium 2.5 mg tablet 20 mg PO SA 07/27/24 12/16/24 His tory omeprazole 40 mg capsule,delayed 40 mg PO QDAY 07/27/24 12/16/24 Hi story release valsartan 320 1 tab PO QDAY 07/27/24 12/16/24 Hi story mg-hydrochlorothiazi de 25 mg tablet tramadol 50 mg tablet 50 mg PO Q12H PRN pain 11/04/24 History prednisone 5 mg tablet 5 mg PO QAM 12/16/24 12/16/24 Hist ory PFSH Medical History Wears glasses Colonoscopy planned Gastric reflux History of stress test Former smoker Family History Mother Heart disease Diabetes Father Heart disease Social History household members: spouse Smoking Status: Former smoker alcohol intake: current alcohol intake frequency: holidays/special occasions only HPI BILATERAL KNEES Details: This documentation accurately reflects the service provided and the decisions made by me, Dr. Too Latham, DO 12/16/24 0830. Part of today???s visit was documented by Michelle FRANZ, acting as scribe. MILES TURNER is a 59 year old M here today for bilateral knee pain wanting steroid injections. His last injections were on 07/27/24. Ortho Exam General General: Yes no acute distress Neurologic: Yes alert and Yes oriented x3 Psychologic: Yes reasonable and appropriate Right Knee Skin/Wound: No erythema, No ecchymosis and No swelling Homans Sign: No Knee ROM: Yes ROM-Extension -20 to 0 (-3) and Yes ROM-Flexion 0-140 (93) Examination: No Med jt line tenderness, No Lat jt line tenderness and No TTP Pes Anserine Stability: NML: Anterior Drawer, NML: Posterior Drawer, NML: Valgus 0, NML: Valgus 30, NML: Varus 0 and NML: Varus 30 Patella Translation: 1 Left Knee Skin/Wound: No ecchymosis, No erythema and No swelling Knee ROM: Yes ROM-Extension -20 to 0 (-3) and Yes ROM-Flexion 0-140 (93) Examination: No med jt line tenderness and No Lat jt line tenderness Stability: NML: Anterior Drawer, NML: Bautista, NML: Posterior Drawer, NML: Valgus 0, NML: Valgus 30, NML: Varus 0 and NML: Varus 30 Patella Translation: 1 KNEE: no effusion varus deformity 2mm medial gapping with valgus stress Right Hip Skin: No Ecchymosis and No Erythema internal rotation @90 degree flexion: 0 degrees external rotation @90 degree extension: 20 degrees Special Tests: No TTP Greater Troch and No RROM flexion pain HIP: Patient is very stiff he does not have significant pain with hip range of motion. There is no gross motor or sensory deficits bilateral lower extremity there is no tenderness over the trochanteric bursa Left Hip Skin/Wound: No Ecchymosis, No soft tissue swelling and No Erythema Hip: Absent eccymosis, soft tissue swelling or erythema internal rotation @90 degree flexion: 0 degrees external rotation @90 degree extension: 20 degrees HIP: Patient is very stiff he does not have significant pain with hip range of motion. There is no gross motor or sensory deficits bilateral lower extremity there is no tenderness over the trochanteric bursa Office Procedures Ortho Injections Injections Yes Knee Bilateral Is this a patient provided medication?: No Details: Obtained consent for injection. Under sterile conditions, injected the patients bilateral knee with 1.5cc bupivacaine 1.5cc lidocaine 1cc depo medrol in each knee. The patient tolerated the injection well without any noted complication. Patient should call our office if redness develops, pain worsens or if they have any concerns. Office Meds Depo-Medrol 40 mg/mL suspension for injection Performing Provider: Too Latham DO Performing Location: [facility] (more content not included)... Normal [facility] Extremity Lower without Cont raon 12-11-2024 Extremity Lower without Contra [facility] Imaging Services [address] [place], [place] [address] Extremity Lower without Contra MR#: [id number] Acct: [id number] Name: MILES TURNER Rep #: [id number] : 1965 M 59 From: Jose Juan stone MD PCP: Dr. Vinh Aguilar MD Status: REG CLI Study: Extremity Lower without Contra Date of Exam: 0 12/11/24 Exam# [id number] Ordering Dr: Too Latham DO PROCEDURE: EXTREMITY LOWER WITHOUT CONTRA REASON FOR EXAM: Templating for left total hip replacement. Sam protocol TECHNIQUE: Multiple axial tomographic images of the hips and both knees were obtained without intravenous contrast administration. CONTRAST: None COMPARISON: None. FINDINGS: Bones: No evidence of fracture. Joints: Imaging of both hip joints was obtained. There is a marked degree of joint space narrowing of the left hip joint with subchondral cystic changes involving the acetabulum and femoral head. Findings may represent avascular necrosis. There is also evidence of a marked degree of joint space narrowing of the right hip joint although no significant evidence of avascular necrosis. Marked degree of joint space narrowing involving both medial compartments of the knee joint. Osteoarthritis of the patellofemoral joint. Soft Tissues: Unremarkable. CT/Extremity Lower without Contra IMPRESSION: Marked degree of joint space narrowing involving both hip joints worse on the left side with findings suggestive of avascular necrosis. Marked degree of joint space narrowing involving the medial compartments of both knee joints. One or more dose reduction techniques were used (e.g., Automated exposure control, adjustment of the mA and/or kV according to patient size, use of iterative reconstruction technique). Reading Location: [id number] CC: Dr. Too Latham, ; Dr. Vinh Aguilar MD Car Checker: Signed [facility] 11-24-2024 [facility] Telephone (INTMWS) YUEMILES SIMENTAL ([id number]) 1965 M [facility] Date Time Provider Department 11/24/24 VINH AGUILAR INTMWS During your visit today, we recorded the following information about you: Lakshmi Paula LPN 11/24/2024 2:34 PM Signed Fax rec'd from Dr. Latham's office noting pt is having left total hip arthroplasty 12/29/24. Pt will need to see pcp or his ETCHER ENAMELING within 30 days of scheduled surgery. Message left for pt to return call to arrange a 40 minute pre op clearance appt. Lakshmi Paula LPN 11/24/2024 4:54 PM Signed appt with pcp 12/21/24. Allergies As of Date: 11/24/2024 (No Known Allergies) Date Reviewed: 05/15/2024 Reviewed by: Gin Crawford LPN - Fully Assessed Reason for Visit: Pre-Op Exam [87] Prescriptions as of 11/24/2024 - omeprazole (PRILOSEC) 40 mg capsule Take 1 capsule by mouth once daily. - etodolac (LODINE) 400 mg tablet Take 1 tablet by mouth two times a day. - TURMERIC ORAL Take 1,000 mg by mouth two times a day. - COLLAGEN MISC 2 teaspoonsful once daily. - gemfibrozil (LOPID) 600 mg tablet Take 1 tablet by mouth two times a day. - Valsartan-hydroCHLOR Othiazide 320-25 mg per tablet Take 1 tablet by mouth once daily. - cholecalciferol, vitamin D3, (VITAMIN D3 ORAL) Take 5,000 Units by mouth once daily. - acetaminophen (TYLENOL) 500 mg tablet Take 1 tablet by mouth every 6 hours as needed for Pain. - Coral-3 Fatty Acids (FISH OIL) 500 mg cap Take 500 mg by mouth once daily. Problem List As Of Date 11/24/2024 Noted Resolved BENIGN HYPERTENSION [I10] 11/24/2007 HYPERLIPIDEMIA NEC/NOS [E78.5] 06/21/2015 ALLERGIC RHINITIS NEC [J30.89] 08/06/2007 Essential hypertension [I10] 11/24/2007 Anal Fissure [K60.2] 05/20/2008 06/30/2010 Rash and other nonspecific skin eruption [R21] 05/20/2008 11/29/2021 Medial epicondylitis [M77.00] 12/03/2009 11/29/2021 Arthritis of knee [M17.10] 11/30/2021 Primary osteoarthritis of both knees [M17.0] 03/30/2014 Left knee pain [M25.562] 05/17/2014 11/29/2021 Hypertriglyceridemia [E78.1] 06/21/2015 Obesity, Class III, BMI 40-49.9 (morbid obesity*06/21/2015 Family history of colon cancer [Z80.0] 06/15/2016 Gastroesophageal reflux disease without esophag*05/30/2018 Primary osteoarthritis of both hips [M16.0] 05/26/2021 History of compression fracture of spine [Z87.8*05/26/2021 Vitamin D deficiency [E55.9] 07/12/2021 Elevated ferritin [R79.89] 05/21/2024 Encounter Status:Closed by LAKSHMI PAULA on 11/24/24 Normal [facility] 11-13-2024 CNPN Telephone (INTMWS) MILES TURNER ([id number]) 1965 Anival [facility] Date Time Provider Department 1/31/25 VINH AGUILAR During your visit today, we recorded the following information about you: Anival Rodriguez RN 11/13/2024 4:55 PM Signed Patient reports he is having a hip replacement with [facility] on 12-29-24. Asking if he needs to schedule with pre-op with pcp or surgeon. Patient will call the surgeon and ask them. Advised if he needs pre-op appt with pcp would need to schedule within 30 days of surgery. Allergies As of Date: 11/13/2024 (No Known Allergies) Date Reviewed: 05/15/2024 Reviewed by: Gin Crawford LPN - Fully Assessed Reason for Visit: Patient Update [1234] Prescriptions as of 11/13/2024 - omeprazole (PRILOSEC) 40 mg capsule Take 1 capsule by mouth once daily. - etodolac (LODINE) 400 mg tablet Take 1 tablet by mouth two times a day. - TURMERIC ORAL Take 1,000 mg by mouth two times a day. - COLLAGEN MISC 2 teaspoonsful once daily. - gemfibrozil (LOPID) 600 mg tablet Take 1 tablet by mouth two times a day. - Valsartan-hydroCHLOR Othiazide 320-25 mg per tablet Take 1 tablet by mouth once daily. - cholecalciferol, vitamin D3, (VITAMIN D3 ORAL) Take 5,000 Units by mouth once daily. - acetaminophen (TYLENOL) 500 mg tablet Take 1 tablet by mouth every 6 hours as needed for Pain. - Coral-3 Fatty Acids (FISH OIL) 500 mg cap Take 500 mg by mouth once daily. Problem List As Of Date 11/13/2024 Noted Resolved BENIGN HYPERTENSION [I10] 11/24/2007 HYPERLIPIDEMIA NEC/NOS [E78.5] 06/21/2015 ALLERGIC RHINITIS NEC [J30.89] 08/06/2007 Essential hypertension [I10] 11/24/2007 Anal Fissure [K60.2] 05/20/2008 06/30/2010 Rash and other nonspecific skin eruption [R21] 05/20/2008 11/29/2021 Medial epicondylitis [M77.00] 12/03/2009 11/29/2021 Arthritis of knee [M17.10] 11/30/2021 Primary osteoarthritis of both knees [M17.0] 03/30/2014 Left knee pain [M25.562] 05/17/2014 11/29/2021 Hypertriglyceridemia [E78.1] 06/21/2015 Obesity, Class III, BMI 40-49.9 (morbid obesity*06/21/2015 Family history of colon cancer [Z80.0] 06/15/2016 Gastroesophageal reflux disease without esophag*05/30/2018 Primary osteoarthritis of both hips [M16.0] 05/26/2021 History of compression fracture of spine [Z87.8*05/26/2021 Vitamin D deficiency [E55.9] 07/12/2021 Elevated ferritin [R79.89] 05/21/2024 Encounter Status:Closed by Anival RODRIGUEZ on 11/13/24 [facility] Absolute lymphocyte countOrd ered By: Marimeron Prescott on 11-11-2024 Lymphocytes Auto (Unsp spec) [#/Vol] 2.69 10*3/uL 0.83-4.51 [facility] Absolute neutrophil countOrd ered By: [facility] on 11-11-2024 Neutrophils (Bld) [#/Vol] 5.2 10*3/uL 2.0-7.7 [facility] Albumin to globulin ratioOrd ered By: Marimeron Prescott on 11-11-2024 Albumin/Globulin [Mass ratio] 1.3 {ratio} 0.9-2.4 [facility] Automated lymphocyte count a s percentage of total leukocytesOrdered By: Mari Prescott on 11-11-2024 Lymphocytes/100 WBC Auto (Unsp spec) 31.2 % 19-41 [facility] Basophil percentageOrdered B y: Mari Prescott on 11-11-2024 Basophils/100 WBC (Bld) 0.3 % 0-1 [facility] Bilirubin, totalOrdered By: Mari Prescott on 11-11-2024 Bilirubin [Mass/Vol] 0.80 mg/dL 0.20-1.00 [facility] Comment on above: For patients on eltr ombopag therapy, use of Dimension [place] TBIL is not recommended. Blood urea nitrogen (BUN)/cr eatinine ratioOrdered By: Mari Prescott on 11-11-2024 Urea nitrogen/Creatinine [Mass ratio] 33.2 mg/mg High 10-20 [facility] CBC W/Diff, Automatedon 10-15 Absolute Lymph 2.69 X10 3/uL Normal 0.83-4.51 [facility] Comment on above: Performed By: #### L 500.4050, L100.0100 ####[facility] [address] [place], [address] Absolute Neut 5.2 X10 3/uL Normal 2.0-7.7 [facility] Comment on above: Performed By: #### L 500.4050, L100.0100 ####[facility] [address] [place], [address] Basophils/100 WBC (Bld) 0.3 % Normal 0-1 [facility] Comment on above: Performed By: #### L 500.4050, L100.0100 ####[facility] [address] [place], [address] Eosinophils/100 WBC (Bld) 0.7 % Normal 0-5 [facility] Comment on above: Performed By: #### L 500.4050, L100.0100 ####[facility] [address] [place], [address] Erythrocyte distribution width (RBC) [Ratio] 12.5 % Normal 11.6-14.6 [facility] Comment on above: Performed By: #### L 500.4050, L100.0100 ####[facility] [address] [place], [address] Hematocrit (Bld) [Volume fraction] 45.7 % Normal 40-54 [facility] Comment on above: Performed By: #### L 500.4050, L100.0100 ####[facility] [address] [place], [address] Hemoglobin (Bld) [Mass/Vol] 15.5 g/dL Normal 13.0-16.5 [facility] Comment on above: Performed By: #### L 500.4050, L100.0100 ####[facility] [address] [place], [address] IG% 0.200 Normal 0.0-0.9 [facility] Comment on above: Result Comment: IG% - Immature Granulocytes (promyelocytes, myelocytes and metamyelocytes) > 1% indicates that a LEFT SHIFT is Present. Performed By: #### L 500.4050, L100.0100 ####[facility] [address] [place], [address] Lymphocytes/100 WBC (Bld) 31.2 % Normal 19-41 [facility] Comment on above: Performed By: #### L 500.4050, L100.0100 ####[facility] [address] [place], [address] MCH (RBC) [Entitic mass] 33.8 pg High 27.0-32.0 [facility] Comment on above: Performed By: #### L 500.4050, L100.0100 ####[facility] [address] [place], [address] MCHC (RBC) [Mass/Vol] 33.9 g/dL Normal 32-36 [facility] Comment on above: Performed By: #### L 500.4050, L100.0100 ####[facility] [address] [place], [address] MCV (RBC) [Entitic vol] 99.6 fL High 80-94 [facility] Comment on above: Performed By: #### L 500.4050, L100.0100 ####[facility] [address] [place], [address] Monocytes/100 WBC (Bld) 7.3 % Normal 0-10 [facility] Comment on above: Performed By: #### L 500.4050, L100.0100 ####[facility] [address] [place], [address] Neutrophils/100 WBC (Bld) 60.3 % Normal 47-70 [facility] Comment on above: Performed By: #### L 500.4050, L100.0100 ####[facility] [address] [place], [address] Nucleated RBC (Bld) [#/Vol] 0 10*3/uL Normal 0-5 [facility] Comment on above: Performed By: #### L 500.4050, L100.0100 ####[facility] [address] [place], [address] Platelet mean volume (Bld) [Entitic vol] 10.3 fL Normal 6.2-12.0 [facility] Comment on above: Performed By: #### L 500.4050, L100.0100 ####[facility] [address] [place], [address] Platelets (Bld) [#/Vol] 249 10*3/uL Normal 150-450 [facility] Comment on above: Performed By: #### L 500.4050, L100.0100 ####[facility] [address] [place], [address] RBC (Bld) [#/Vol] 4.59 10*6/uL Low 4.6-6.2 [facility] Comment on above: Performed By: #### L 500.4050, L100.0100 ####[facility] [address] [place], [address] RDW SD 46.2 fl High 35.1-43.9 [facility] Comment on above: Performed By: #### L 500.4050, L100.0100 ####[facility] [address] [place], [address] WBC (Bld) [#/Vol] 8.6 10*3/uL Normal 4.4-11.0 [facility] Comment on above: Performed By: #### L 500.4050, L100.0100 ####[facility] [address] [place], [address] Carbon dioxide measurementOr dered By: Mari Prescott on 11-11-2024 CO2 [Moles/Vol] 25.0 mmol/L 21.0-32.0 [facility] Chloride measurementOrdered By: Mari Prescott on 11-11-2024 Chloride [Moles/Vol] 104 mmol/L 98-107 [facility] Comprehensive Metabolic Prof ilon 11-11-2024 Albumin [Mass/Vol] 4.3 g/dL Normal 3.2-5.0 [facility] Comment on above: Performed By: #### L 500.4050, L100.0100 #### [facility] [address] [place], [address] Albumin/Globulin [Mass ratio] 1.3 {ratio} Normal 0.9-2.4 [facility] Comment on above: Performed By: #### L 500.4050, L100.0100 #### [facility] [address] [place], [address] ALK P 69 U/L Normal 45-117 [facility] Comment on above: Performed By: #### L 500.4050, L100.0100 #### [facility] [address] [place], [address] ALT [Catalytic activity/Vol] 29 U/L Normal 16-61 [facility] Comment on above: Performed By: #### L 500.4050, L100.0100 #### [facility] [address] [place], [address] AST [Catalytic activity/Vol] 12 U/L Low 15-37 [facility] Comment on above: Performed By: #### L 500.4050, L100.0100 #### [facility] [address] [place], [address] Bilirubin [Mass/Vol] 0.80 mg/dL Normal 0.20-1.00 [facility] Comment on above: Result Comment: For patients on eltrombopag therapy, use of Dimension [place] TBIL is not recommended. Performed By: #### L 500.4050, L100.0100 #### [facility] [address] [place], [address] BUN/CRE 33.2 RATIO High 10-20 [facility] Comment on above: Performed By: #### L 500.4050, L100.0100 #### [facility] [address] [place], [address] CA,Total 9.5 mg/dL Normal 8.5-10.1 [facility] Comment on above: Performed By: #### L 500.4050, L100.0100 #### [facility] [address] [place], [address] Chloride [Moles/Vol] 104 mmol/L Normal 98-107 [facility] Comment on above: Performed By: #### L 500.4050, L100.0100 #### [facility] [address] [place], [address] CO2 [Moles/Vol] 25.0 mmol/L Normal 21.0-32.0 [facility] Comment on above: Performed By: #### L 500.4050, L100.0100 #### [facility] [address] [place], [address] Creatinine [Mass/Vol] 0.84 mg/dL Normal 0.70-1.30 [facility] Comment on above: Result Comment: The validity of the calculated GFR GFRAA in patients over 70 years has not been determined. Clinical correlation is essential. Performed By: #### L 500.4050, L100.0100 #### [facility] [address] [place], [address] EST GFR - AA 120 mL/min Normal >60 [facility] Comment on above: Result Comment: Afri can Vincentian GFR Calc Performed By: #### L 500.4050, L100.0100 #### [facility] [address] [place], [address] GAP 9 Normal 5-15 [facility] Comment on above: Performed By: #### L 500.4050, L100.0100 #### [facility] [address] [place], [address] GFR/1.73 sq M.predicted among non-blacks MDRD (S/P/Bld) [Vol rate/Area] 99 mL/min/{1.73_m2} Normal >60 [facility] Comment on above: Result Comment: Non- GFR Calc Performed By: #### L 500.4050, L100.0100 #### [facility] [address] [place], [address] Globulin (S) [Mass/Vol] 3.3 g/dL Normal 2.2-4.2 [facility] Comment on above: Performed By: #### L 500.4050, L100.0100 #### [facility] [address] [place], [address] Glucose [Mass/Vol] 85 mg/dL Normal 74-106 [facility] Comment on above: Performed By: #### L 500.4050, L100.0100 #### [facility] [address] [place], [address] Potassium [Moles/Vol] 4.0 mmol/L Normal 3.5-5.1 [facility] Comment on above: Performed By: #### L 500.4050, L100.0100 #### [facility] [address] [place], [address] Sodium [Moles/Vol] 137 mmol/L Normal 136-145 [facility] Comment on above: Performed By: #### L 500.4050, L100.0100 #### [facility] [address] [place], [address] T PROT 7.6 g/dL Normal 6.4-8.2 [facility] Comment on above: Performed By: #### L 500.4050, L100.0100 #### [facility] [address] [place], [address] Urea nitrogen [Mass/Vol] 28 mg/dL High 7-18 [facility] Comment on above: Performed By: #### L 500.4050, L100.0100 #### [facility] [address] [place], [address] Eosinophil percentageOrdered By: Mari Prescott on 11-11-2024 Eosinophils/100 WBC (Bld) 0.7 % 0-5 [facility] Erythrocyte distribution wid th ratioOrdered By: Mari Prescott on 11-11-2024 Erythrocyte distribution width (RBC) [Ratio] 12.5 % 11.6-14.6 [facility] Erythrocyte distribution wid th standard deviationOrdered By: Mari Prescott on 11-11-2024 Erythrocyte distribution width (RBC) [Entitic vol] 46.2 fL High 35.1-43.9 [facility] Erythrocyte distribution width (RBC) [Ratio] 46.2 fl High 35.1-43.9 [facility] Estimated glomerular filtrat ion rate (GFR) AmericanOrdered By: Mari Prescott on 11-11-2024 Estimated GFR (MDRD) Amer 120 mL/min >60 [facility] Comment on above: GFR Calc Glomerular filtration rate ( GFR) estimationOrdered By: Mari Prescott on 11-11-2024 Estimated GFR (MDRD) Non-Af Amer 99 mL/min >60 [facility] Comment on above: Non- GFR Calc GFR/1.73 sq M.predicted among non-blacks MDRD (S/P/Bld) [Vol rate/Area] 99 mL/min/{1.73_m2} >60 [facility] Comment on above: Non- GFR Calc Glucose measurementOrdered B y: Mari Prescott on 11-11-2024 Glucose [Mass/Vol] 85 mg/dL 74-106 [facility] Hematocrit Auto (Bld) [Volum e fraction]Ordered By: Mari Prescott on 11-11-2024 Hematocrit (Bld) [Volume fraction] 45.7 % 40-54 [facility] Hemoglobin measurementOrdere d By: Mari Prescott on 11-11-2024 Hemoglobin (Bld) [Mass/Vol] 15.5 g/dL 13.0-16.5 [facility] Immature granulocytes/100 WB C Auto (Bld)Ordered By: Mari Prescott on 11-11-2024 Immature granulocytes/100 WBC (Bld) 0.200 % 0.0-0.9 [facility] Comment on above: IG% - Immature Granu locytes (promyelocytes, myelocytes and metamyelocytes) > 1% indicates that a LEFT SHIFT is Present. Laboratory - Chemistry and C hemistry - challengeOrdered By: Mari Prescott on 11-11-2024 AST [Catalytic activity/Vol] 12 U/L Low 15-37 [facility] Lymphocytes Auto (Unsp spec) [#/Vol]Ordered By: Mari Prescott on 11-11-2024 Lymphocytes (Bld) [#/Vol] 2.69 10*3/uL 0.83-4.51 [facility] Lymphocytes/100 WBC Auto (Un sp spec)Ordered By: Mari Prescott on 11-11-2024 Lymphocytes/100 WBC (Bld) 31.2 % 19-41 [facility] MCV (mean corpuscular volume ) determinationOrdered By: Mari Prescott on 11-11-2024 MCV (RBC) [Entitic vol] 99.6 fL High 80-94 [facility] Mean corpuscular hemoglobin (MCH) determinationOrdered By: Mari Prescott on 11-11-2024 MCH (RBC) [Entitic mass] 33.8 pg High 27.0-32.0 [facility] Mean corpuscular hemoglobin concentration (MCHC) determinationOrdered By: Mari Prescott on 11-11-2024 MCHC (RBC) [Mass/Vol] 33.9 g/dL 32-36 [facility] Mean platelet volume determi nationOrdered By: Mari Prescott on 11-11-2024 Platelet mean volume (Bld) [Entitic vol] 10.3 fL 6.2-12.0 [facility] Monocyte percentageOrdered B y: Mari Prescott on 11-11-2024 Monocytes/100 WBC (Bld) 7.3 % 0-10 [facility] Neutrophil percentageOrdered By: Mari Prescott on 11-11-2024 Neutrophils/100 WBC (Bld) 60.3 % 47-70 [facility] Nucleated red blood cell per centageOrdered By: Mari Prescott on 11-11-2024 Nucleated RBC/100 WBC (Bld) [Ratio] 0 % 0-5 [facility] Platelet countOrdered By: Waldemar Prescott on 11-11-2024 Platelets (Bld) [#/Vol] 249 10*3/uL 150-450 [facility] Potassium measurementOrdered By: Mari Prescott on 11-11-2024 Potassium [Moles/Vol] 4.0 mmol/L 3.5-5.1 [facility] RBC Auto (Bld) [#/Vol]Ordere d By: Mari Prescott on 11-11-2024 RBC (Bld) [#/Vol] 4.59 10*6/uL Low 4.6-6.2 [facility] Serum anion gap measurementO rdered By: Mari Prescott on 11-11-2024 Anion gap [Moles/Vol] 9 mmol/L 5-15 [facility] Serum globulin measurementOr dered By: Mari Prescott on 11-11-2024 Globulin (S) [Mass/Vol] 3.3 g/dL 2.2-4.2 [facility] Serum or plasma alanine treviño otransferase (ALT) measurementOrdered By: Mari Prescott on 11-11-2024 ALT [Catalytic activity/Vol] 29 U/L 16-61 [facility] Serum or plasma albumin sunny urement (mass/volume)Ordered By: Mari Prescott on 11-11-2024 Albumin [Mass/Vol] 4.3 g/dL 3.2-5.0 [facility] Serum or plasma alkaline mica sphatase measurementOrdered By: Mari Prescott on 11-11-2024 ALP [Catalytic activity/Vol] 69 U/L 45-117 [facility] Serum or plasma calcium sunny urement (mass/volume)Ordered By: Mari Prescott on 11-11-2024 Calcium [Mass/Vol] 9.5 mg/dL 8.5-10.1 [facility] Serum or plasma creatinine m easurement (mass/volume)Ordered By: Mari Prescott on 11-11-2024 Creatinine [Mass/Vol] 0.84 mg/dL 0.70-1.30 [facility] Comment on above: The validity of the calculated GFR & GFRAA in patients over 70 years has not been determined. Clinical correlation is essential. Serum or plasma urea nitroge n measurement (mass/volume)Ordered By: Mari Prescott on 11-11-2024 Urea nitrogen [Mass/Vol] 28 mg/dL High 7-18 [facility] Sodium levelOrdered By: Elaine Prescott on 11-11-2024 Sodium [Moles/Vol] 137 mmol/L 136-145 [facility] Total proteinOrdered By: Eusebio Prescott on 11-11-2024 Protein [Mass/Vol] 7.6 g/dL 6.4-8.2 [facility] White blood cell (WBC) count Ordered By: Mari Prescott on 11-11-2024 WBC (Bld) [#/Vol] 8.6 10*3/uL 4.4-11.0 [facility] Orthopedic Visit Reporton Orthopedic Visit Report [facility] [address] [place] [id number] OFFICE VISIT Date of Service: 11/04/24 MR#: [id number] Acct: [id number] Name: MILES TURNER Rep #: [id number] : 1965 Provider: Dr. Too jones DO Age/Sex: 59/M Location: [facility] [place] Status: Signed Intake Vital Signs 07/27/24 08:18 11/04/24 15:56 Height 5 ft 9 in 5 ft 9.5 in Weight: 272 lb 8 oz 265 lb 6 oz BMI 40.2 38.6 Intake Visit Reasons: BILATERAL KNEES Allergies No Known Allergies Allergy (Verified 11/04/24 16:03) Medications ???Medication ???Instructions ???Recorded ???Confirmed ???Type fish oil-dha-epa 1,200 mg-144 1 ea PO DAILY 01/08/18 11/04/24 History mg-216 mg capsule gemfibrozil 600 mg tablet 600 mg PO BIDAC 01/08/18 11/04/24 History cholecalciferol (vitamin D3) 50 50 mcg PO QDAY 07/27/24 11/04/24 History mcg (2,000 unit) capsule etodolac 400 mg tablet 400 mg PO BID 07/27/24 11/04/24 History folic acid 1 mg tablet 1 mg PO QDAY 07/27/24 11/04/24 History leucovorin calcium 15 mg tablet mg PO 07/27/24 11/04/24 History methotrexate sodium 2.5 mg tablet 2.5 mg PO 07/27/24 11/04/24 History omeprazole 40 mg capsule,delayed 40 mg PO QDAY 07/27/24 11/04/24 History release valsartan 320 1 tab PO QDAY 07/27/24 11/04/24 History mg-hydrochlorothiazi de 25 mg tablet tramadol 50 mg tablet mg PO 11/04/24 11/04/24 History PFSH Family History (Updated 07/27/24 @ 08:23 by Alisson Capone MA) Mother Heart disease Diabetes Father Heart disease Social History (Updated 07/27/24 @ 08:23 by Alisson Capone MA) household members: spouse Smoking Status: Former smoker alcohol intake: current alcohol intake frequency: holidays/special occasions only HPI BILATERAL KNEES Details: This documentation accurately reflects the service provided and the decisions made by me, Dr. Too Latham, DO 11/04/24 0813. Part of today???s visit was documented by Michelle FRANZ, acting as scribe. MILES TURNER is a 59 year old M here today for 11/04/2024: Patient is here today to discuss surgery. He wants to talk about if he should do his hips or knees first. He states that he would like to have his left hip replaced but also wants to discuss if the knees would affect PT post-operatively. Dr. Prescott did prescribe him tramadol for pain but he states it doesn't seem to do anything for his pain. He take it at least once a day in the morning. He feels that his pain has gotten worse since being on the Methotrexate. He started taking it in June of 2024. He finds his hip is very debilitating is preventing him from doing things he enjoys he is ready to move forward with joint arthroplasty he denies any numbness or tingling 07/27/2024 office visit: here today for Bilateral knee pain. Patient states that his knees have bothered him for about 6 years. Patient states the only injury to his right knee was he went down on ice and hit a rock no injury to his left. Patient states that his left is worse then right. Patient states he has had injection to his knee. Patient has had the gel injection and cortisone injections. Gel injection lasted about a month maybe a little longer. Cortisone injections last him weeks, maybe a month. Patient has done PT 3 years ago for his knees and he still does the exercises that they taught him. Patient takes Tylenol and Etodolac for his pain. Patient has tired ice and heat, heat is better then ice. Patient states his pain in his knees are all over, he states they are bone on bone. Patient would like to have injection in his knees today if possible. He also has bilateral groin pain worse on the left he did have an injection in the past which was not very helpful. He was only recently diagnosed with rheumatoid arthritis and recently started on methotrexate currently taking 5 tabs of 2.5mg. 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 He denies tobacco or alcohol use. Plan:Educated patient on anatomy and etiology of both knees. Reviewed xrays with patient and informed him that he does have advanced knee arthritis in both knees and both hips. Informed patient about hip injection and advised that I would not recommend them as they don't typically give much relief. Spoke with patient that his treatment options are do nothing, steroid injections, knee braces, weight loss, anti-inflammatories, physical therapy, or a TKA. Patient wishes to proceed with bilateral knee injection today. Did advise patient that the recovery time for a knee replacement can take up to 2 years to fully recover but by 3 months most people are happy they had it done. He is also getting some adjustments to his rheumatoid medications as he was recently diagnosed. Follow up as needed or to (more content not included)... Normal [facility] Absolute neutrophil countOrd ered By: Marimeron Prescott on 09-15-2024 Neutrophils (Bld) [#/Vol] 5.6 10*3/uL 2.0-7.7 [facility] Albumin to globulin ratioOrd ered By: Mari Prescott on 09-15-2024 Albumin/Globulin [Mass ratio] 1.2 {ratio} 0.9-2.4 [facility] Basophil percentageOrdered B y: Mari Prescott on 09-15-2024 Basophils/100 WBC (Bld) 0.6 % 0-1 [facility] Bilirubin, totalOrdered By: [facility] on 09-15-2024 Bilirubin [Mass/Vol] 0.60 mg/dL 0.20-1.00 [facility] Comment on above: For patients on eltr ombopag therapy, use of Dimension [place] TBIL is not recommended. Blood urea nitrogen (BUN)/cr eatinine ratioOrdered By: Mari Prescott on 09-15-2024 Urea nitrogen/Creatinine [Mass ratio] 44.0 mg/mg High 10-20 [facility] CBC W/Diff, Automatedon Absolute Lymph 2.79 X10 3/uL Normal 0.83-4.51 [facility] Comment on above: Performed By: #### L 100.0100, L500.4050 #### [facility] [place], [address] Absolute Neut 5.6 X10 3/uL Normal 2.0-7.7 [facility] Comment on above: Performed By: #### L 100.0100, L500.4050 #### [facility] [address] [place] [place], [address] Basophils/100 WBC (Bld) 0.6 % Normal 0-1 [facility] Comment on above: Performed By: #### L 100.0100, L500.4050 #### [facility] [address] [place], [address] Eosinophils/100 WBC (Bld) 0.8 % Normal 0-5 [facility] Comment on above: Performed By: #### L 100.0100, L500.4050 #### [facility] [address] [place], [address] Erythrocyte distribution width (RBC) [Ratio] 13.6 % Normal 11.6-14.6 [facility] Comment on above: Performed By: #### L 100.0100, L500.4050 #### [facility] [address] [place], [address] Hematocrit (Bld) [Volume fraction] 42.8 % Normal 40-54 [facility] Comment on above: Performed By: #### L 100.0100, L500.4050 #### [facility] [address] [place], [address] Hemoglobin (Bld) [Mass/Vol] 14.7 g/dL Normal 13.0-16.5 [facility] Comment on above: Performed By: #### L 100.0100, L500.4050 #### [facility] [address] [place], [address] IG% 0.300 Normal 0.0-0.9 [facility] Comment on above: Result Comment: IG% - Immature Granulocytes (promyelocytes, myelocytes and metamyelocytes) > 1% indicates that a LEFT SHIFT is Present. Performed By: #### L 100.0100, L500.4050 #### [facility] [address] [place], [address] Lymphocytes/100 WBC (Bld) 30.1 % Normal 19-41 [facility] Comment on above: Performed By: #### L 100.0100, L500.4050 #### [facility] [address] [place], [address] MCH (RBC) [Entitic mass] 33.6 pg High 27.0-32.0 [facility] Comment on above: Performed By: #### L 100.0100, L500.4050 #### [facility] [address] [place], [address] MCHC (RBC) [Mass/Vol] 34.3 g/dL Normal 32-36 [facility] Comment on above: Performed By: #### L 100.0100, L500.4050 #### [facility] [address] [place], [address] MCV (RBC) [Entitic vol] 97.7 fL High 80-94 [facility] Comment on above: Performed By: #### L 100.0100, L500.4050 #### [facility] [address] [place], [address] Monocytes/100 WBC (Bld) 7.7 % Normal 0-10 [facility] Comment on above: Performed By: #### L 100.0100, L500.4050 #### [facility] [address] [place], [address] Neutrophils/100 WBC (Bld) 60.5 % Normal 47-70 [facility] Comment on above: Performed By: #### L 100.0100, L500.4050 #### [facility] [address] [place], [address] Nucleated RBC (Bld) [#/Vol] 0 10*3/uL Normal 0-5 [facility] Comment on above: Performed By: #### L 100.0100, L500.4050 #### [facility] [address] [place], [address] Platelet mean volume (Bld) [Entitic vol] 9.8 fL Normal 6.2-12.0 [facility] Comment on above: Performed By: #### L 100.0100, L500.4050 #### [facility] [address] [place], [address] Platelets (Bld) [#/Vol] 243 10*3/uL Normal 150-450 [facility] Comment on above: Performed By: #### L 100.0100, L500.4050 #### [facility] [address] [place], [address] RBC (Bld) [#/Vol] 4.38 10*6/uL Low 4.6-6.2 [facility] Comment on above: Performed By: #### L 100.0100, L500.4050 #### [facility] [address] [place], [address] RDW SD 49.2 fl High 35.1-43.9 [facility] Comment on above: Performed By: #### L 100.0100, L500.4050 #### [facility] [address] [place], [address] WBC (Bld) [#/Vol] 9.3 10*3/uL Normal 4.4-11.0 [facility] Comment on above: Performed By: #### L 100.0100, L500.4050 #### [facility] [address] [place], [address] Carbon dioxide measurementOr dered By: Mari Prescott on 09-15-2024 CO2 [Moles/Vol] 23.0 mmol/L 21.0-32.0 [facility] Chloride measurementOrdered By: Mari Prescott on 09-15-2024 Chloride [Moles/Vol] 105 mmol/L 98-107 [facility] Metabolic Prof ilon 09-15-2024 Albumin [Mass/Vol] 4.0 g/dL Normal 3.2-5.0 [facility] Comment on above: Performed By: #### L 100.0100, L500.4050 #### [facility] [address] [place], [address] Albumin/Globulin [Mass ratio] 1.2 {ratio} Normal 0.9-2.4 [facility] Comment on above: Performed By: #### L 100.0100, L500.4050 #### [facility] [address] [place], [address] ALK P 70 U/L Normal 45-117 [facility] Comment on above: Performed By: #### L 100.0100, L500.4050 #### [facility] [address] [place], [address] ALT [Catalytic activity/Vol] 22 U/L Normal 16-61 [facility] Comment on above: Performed By: #### L 100.0100, L500.4050 #### [facility] [address] [place], [address] AST [Catalytic activity/Vol] 12 U/L Low 15-37 [facility] Comment on above: Performed By: #### L 100.0100, L500.4050 #### [facility] [address] [place], [address] Bilirubin [Mass/Vol] 0.60 mg/dL Normal 0.20-1.00 [facility] Comment on above: Result Comment: For patients on eltrombopag therapy, use of Dimension [place] TBIL is not recommended. Performed By: #### L 100.0100, L500.4050 #### [facility] [address] [place], [address] BUN/CRE 44.0 RATIO High 10-20 [facility] Comment on above: Performed By: #### L 100.0100, L500.4050 #### [facility] [address] [place], [address] CA,Total 9.4 mg/dL Normal 8.5-10.1 [facility] Comment on above: Performed By: #### L 100.0100, L500.4050 #### [facility] [address] [place], [address] Chloride [Moles/Vol] 105 mmol/L Normal 98-107 [facility] Comment on above: Performed By: #### L 100.0100, L500.4050 #### [facility] [address] [place], [address] CO2 [Moles/Vol] 23.0 mmol/L Normal 21.0-32.0 [facility] Comment on above: Performed By: #### L 100.0100, L500.4050 #### [facility] [address] [place], [address] Creatinine [Mass/Vol] 0.73 mg/dL Normal 0.70-1.30 [facility] Comment on above: Result Comment: The validity of the calculated GFR GFRAA in patients over 70 years has not been determined. Clinical correlation is essential. Performed By: #### L 100.0100, L500.4050 #### [facility] [address] [place], [address] EST GFR - AA 142 mL/min Normal >60 [facility] Comment on above: Result Comment: Afri can Vincentian GFR Calc Performed By: #### L 100.0100, L500.4050 #### [facility] [address] [place], [address] GAP 9 Normal 5-15 [facility] Comment on above: Performed By: #### L 100.0100, L500.4050 #### [facility] [address] [place], [address] GFR/1.73 sq M.predicted among non-blacks MDRD (S/P/Bld) [Vol rate/Area] 117 mL/min/{1.73_m2} Normal >60 [facility] Comment on above: Result Comment: Non- GFR Calc Performed By: #### L 100.0100, L500.4050 #### [facility] [address] [place], [address] Globulin (S) [Mass/Vol] 3.3 g/dL Normal 2.2-4.2 [facility] Comment on above: Performed By: #### L 100.0100, L500.4050 #### [facility] [address] [place], [address] Glucose [Mass/Vol] 89 mg/dL Normal 74-106 [facility] Comment on above: Performed By: #### L 100.0100, L500.4050 #### [facility] [address] [place], [address] Potassium [Moles/Vol] 3.8 mmol/L Normal 3.5-5.1 [facility] Comment on above: Performed By: #### L 100.0100, L500.4050 #### [facility] [address] [place], [address] Sodium [Moles/Vol] 137 mmol/L Normal 136-145 [facility] Comment on above: Performed By: #### L 100.0100, L500.4050 #### [facility] [address] [place], [address] T PROT 7.3 g/dL Normal 6.4-8.2 [facility] Comment on above: Performed By: #### L 100.0100, L500.4050 #### [facility] [address] [place], [place], [address] Urea nitrogen [Mass/Vol] 32 mg/dL High 7-18 [facility] Comment on above: Performed By: #### L 100.0100, L500.4050 #### [facility] [address] [place], [address] Eosinophil percentageOrdered By: Mari Prescott on 09-15-2024 Eosinophils/100 WBC (Bld) 0.8 % 0-5 [facility] Erythrocyte distribution wid th ratioOrdered By: Mari Prescott on 09-15-2024 Erythrocyte distribution width (RBC) [Ratio] 13.6 % 11.6-14.6 [facility] Erythrocyte distribution wid th standard deviationOrdered By: Mari Prescott on 09-15-2024 Erythrocyte distribution width (RBC) [Entitic vol] 49.2 fL High 35.1-43.9 [facility] Estimated glomerular filtrat ion rate (GFR) AmericanOrdered By: Mari Prescott on 09-15-2024 Estimated GFR (MDRD) Amer 142 mL/min >60 [facility] Comment on above: GFR Calc Glomerular filtration rate ( GFR) estimationOrdered By: Mari Prescott on 09-15-2024 Estimated GFR (MDRD) Non-Af Amer 117 mL/min >60 [facility] Comment on above: Non- GFR Calc Glucose measurementOrdered B y: aMri Prescott on 09-15-2024 Glucose [Mass/Vol] 89 mg/dL 74-106 [facility] Hematocrit Auto (Bld) [Volum e fraction]Ordered By: Mari Prescott on 09-15-2024 Hematocrit (Bld) [Volume fraction] 42.8 % 40-54 [facility] Hemoglobin measurementOrdere d By: Mari Prescott on 09-15-2024 Hemoglobin (Bld) [Mass/Vol] 14.7 g/dL 13.0-16.5 [facility] Immature granulocytes/100 WB C Auto (Bld)Ordered By: Mari Prescott on 09-15-2024 Immature granulocytes/100 WBC (Bld) 0.300 % 0.0-0.9 [facility] Comment on above: IG% - Immature Granu locytes (promyelocytes, myelocytes and metamyelocytes) > 1% indicates that a LEFT SHIFT is Present. Laboratory - Chemistry and C hemistry - challengeOrdered By: Mari Prescott on 09-15-2024 AST [Catalytic activity/Vol] 12 U/L Low 15-37 [facility] Lymphocytes Auto (Unsp spec) [#/Vol]Ordered By: Mari Prescott on 09-15-2024 Lymphocytes (Bld) [#/Vol] 2.79 10*3/uL 0.83-4.51 [facility] Lymphocytes/100 WBC Auto (Un sp spec)Ordered By: Mari Prescott on 09-15-2024 Lymphocytes/100 WBC (Bld) 30.1 % 19-41 [facility] MCV (mean corpuscular volume ) determinationOrdered By: Mari Prescott on 09-15-2024 MCV (RBC) [Entitic vol] 97.7 fL High 80-94 [facility] Mean corpuscular hemoglobin (MCH) determinationOrdered By: Mari Prescott on 09-15-2024 MCH (RBC) [Entitic mass] 33.6 pg High 27.0-32.0 [facility] Mean corpuscular hemoglobin concentration (MCHC) determinationOrdered By: Mari Perscott on 09-15-2024 MCHC (RBC) [Mass/Vol] 34.3 g/dL 32-36 [facility] Mean platelet volume determi nationOrdered By: Mari Prescott on 09-15-2024 Platelet mean volume (Bld) [Entitic vol] 9.8 fL 6.2-12.0 [facility] Monocyte percentageOrdered B y: Mari Prescott on 09-15-2024 Monocytes/100 WBC (Bld) 7.7 % 0-10 [facility] Neutrophil percentageOrdered By: Mari Prescott on 09-15-2024 Neutrophils/100 WBC (Bld) 60.5 % 47-70 [facility] Nucleated red blood cell per centageOrdered By: Mari Prescott on 09-15-2024 Nucleated RBC/100 WBC (Bld) [Ratio] 0 % 0-5 [facility] Platelet countOrdered By: Waldemar Prescott on 09-15-2024 Platelets (Bld) [#/Vol] 243 10*3/uL 150-450 [facility] Potassium measurementOrdered By: Mari Prescott on 09-15-2024 Potassium [Moles/Vol] 3.8 mmol/L 3.5-5.1 [facility] RBC Auto (Bld) [#/Vol]Ordere d By: Mari Prescott on 09-15-2024 RBC (Bld) [#/Vol] 4.38 10*6/uL Low 4.6-6.2 [facility] Serum anion gap measurementO rdered By: Mari Prescott on 09-15-2024 Anion gap [Moles/Vol] 9 mmol/L 5-15 [facility] Serum globulin measurementOr dered By: Mari Prescott on 09-15-2024 Globulin (S) [Mass/Vol] 3.3 g/dL 2.2-4.2 [facility] Serum or plasma alanine treviño otransferase (ALT) measurementOrdered By: Mari Prescott on 09-15-2024 ALT [Catalytic activity/Vol] 22 U/L 16-61 [facility] Serum or plasma albumin sunny urement (mass/volume)Ordered By: Mari Prescott on 09-15-2024 Albumin [Mass/Vol] 4.0 g/dL 3.2-5.0 [facility] Serum or plasma alkaline mica sphatase measurementOrdered By: Mari Prescott on 09-15-2024 ALP [Catalytic activity/Vol] 70 U/L 45-117 [facility] Serum or plasma calcium sunyn urement (mass/volume)Ordered By: Mari Prescott on 09-15-2024 Calcium [Mass/Vol] 9.4 mg/dL 8.5-10.1 [facility] Serum or plasma creatinine m easurement (mass/volume)Ordered By: Mari Prescott on 09-15-2024 Creatinine [Mass/Vol] 0.73 mg/dL 0.70-1.30 [facility] Comment on above: The validity of the calculated GFR & GFRAA in patients over 70 years has not been determined. Clinical correlation is essential. Serum or plasma urea nitroge n measurement (mass/volume)Ordered By: Mari Prescott on 09-15-2024 Urea nitrogen [Mass/Vol] 32 mg/dL High 7-18 [facility] Sodium levelOrdered By: Elaine Prescott on 09-15-2024 Sodium [Moles/Vol] 137 mmol/L 136-145 [facility] Total proteinOrdered By: Eusebio Prescott on 09-15-2024 Protein [Mass/Vol] 7.3 g/dL 6.4-8.2 [facility] White blood cell (WBC) count Ordered By: Mari Prescott on 09-15-2024 WBC (Bld) [#/Vol] 9.3 10*3/uL 4.4-11.0 [facility] CBC W/Diff, Automatedon 10-2 Absolute Lymph 1.21 X10 3/uL Normal 0.83-4.51 [facility] Comment on above: Performed By: #### L 100.0100, L500.4050 #### [facility] [address] [place], [address] Absolute Neut 7.0 X10 3/uL Normal 2.0-7.7 [facility] Comment on above: Performed By: #### L 100.0100, L500.4050 #### [facility] [address] [place], [address] Basophils/100 WBC (Bld) 0.3 % Normal 0-1 [facility] Comment on above: Performed By: #### L 100.0100, L500.4050 #### [facility] [address] [place], [address] Eosinophils/100 WBC (Bld) 0.2 % Normal 0-5 [facility] Comment on above: Performed By: #### L 100.0100, L500.4050 #### [facility] [address] [place], [address] Erythrocyte distribution width (RBC) [Ratio] 13.5 % Normal 11.6-14.6 [facility] Comment on above: Performed By: #### L 100.0100, L500.4050 #### [facility] [address] [place], [address] Hematocrit (Bld) [Volume fraction] 43.5 % Normal 40-54 [facility] Comment on above: Performed By: #### L 100.0100, L500.4050 #### [facility] [address] [place], [address] Hemoglobin (Bld) [Mass/Vol] 15.4 g/dL Normal 13.0-16.5 [facility] Comment on above: Performed By: #### L 100.0100, L500.4050 #### [facility] [address] [place], [address] IG% 0.600 Normal 0.0-0.9 [facility] Comment on above: Result Comment: IG% - Immature Granulocytes (promyelocytes, myelocytes and metamyelocytes) > 1% indicates that a LEFT SHIFT is Present. Performed By: #### L 100.0100, L500.4050 #### [facility] [address] [place], [address] Lymphocytes/100 WBC (Bld) 13.9 % Low 19-41 [facility] Comment on above: Performed By: #### L 100.0100, L500.4050 #### [facility] [address] [place], [address] MCH (RBC) [Entitic mass] 34.0 pg High 27.0-32.0 [facility] Comment on above: Performed By: #### L 100.0100, L500.4050 #### [facility] [address] [place], [address] MCHC (RBC) [Mass/Vol] 35.4 g/dL Normal 32-36 [facility] Comment on above: Performed By: #### L 100.0100, L500.4050 #### [facility] [address] [place], [address] MCV (RBC) [Entitic vol] 96.0 fL High 80-94 [facility] Comment on above: Performed By: #### L 100.0100, L500.4050 #### [facility] [address] [place], [address] Monocytes/100 WBC (Bld) 4.7 % Normal 0-10 [facility] Comment on above: Performed By: #### L 100.0100, L500.4050 #### [facility] [address] [place], [address] Neutrophils/100 WBC (Bld) 80.3 % High 47-70 [facility] Comment on above: Performed By: #### L 100.0100, L500.4050 #### [facility] [address] [place], [address] Nucleated RBC (Bld) [#/Vol] 0 10*3/uL Normal 0-5 [facility] Comment on above: Performed By: #### L 100.0100, L500.4050 #### [facility] [address] [place], [address] Platelet mean volume (Bld) [Entitic vol] 10.0 fL Normal 6.2-12.0 [facility] Comment on above: Performed By: #### L 100.0100, L500.4050 #### [facility] [address] [place], [address] Platelets (Bld) [#/Vol] 219 10*3/uL Normal 150-450 [facility] Comment on above: Performed By: #### L 100.0100, L500.4050 #### [facility] [address] [place], [address] RBC (Bld) [#/Vol] 4.53 10*6/uL Low 4.6-6.2 [facility] Comment on above: Performed By: #### L 100.0100, L500.4050 #### [facility] [address] [place], [address] RDW SD 46.5 fl High 35.1-43.9 [facility] Comment on above: Performed By: #### L 100.0100, L500.4050 #### [facility] [address] [place], [address] WBC (Bld) [#/Vol] 8.7 10*3/uL Normal 4.4-11.0 [facility] Comment on above: Performed By: #### L 100.0100, L500.4050 #### [facility] [address] [place], [address] Comprehensive Metabolic [facility] 08-07-2024 Albumin [Mass/Vol] 4.0 g/dL Normal 3.2-5.0 [facility] Comment on above: Performed By: #### L 100.0100, L500.4050 #### [facility] [address] [place], [address] Albumin/Globulin [Mass ratio] 1.2 {ratio} Normal 0.9-2.4 [facility] Comment on above: Performed By: #### L 100.0100, L500.4050 #### [facility] [address] [place], [address] ALK P 66 U/L Normal 45-117 [facility] Comment on above: Performed By: #### L 100.0100, L500.4050 #### [facility] [address] [place], [address] ALT [Catalytic activity/Vol] 23 U/L Normal 16-61 [facility] Comment on above: Performed By: #### L 100.0100, L500.4050 #### [facility] [address] [place], [address] AST [Catalytic activity/Vol] 9 U/L Low 15-37 [facility] Comment on above: Performed By: #### L 100.0100, L500.4050 #### [facility] [address] [place], [address] Bilirubin [Mass/Vol] 0.70 mg/dL Normal 0.20-1.00 [facility] Comment on above: Result Comment: For patients on eltrombopag therapy, use of Dimension [place] TBIL is not recommended. Performed By: #### L 100.0100, L500.4050 #### [facility] [address] [place], [address] BUN/CRE 31.1 RATIO High 10-20 [facility] Comment on above: Performed By: #### L 100.0100, L500.4050 #### [facility] [address] [place], [address] CA,Total 9.2 mg/dL Normal 8.5-10.1 [facility] Comment on above: Performed By: #### L 100.0100, L500.4050 #### [facility] [address] [place], [address] Chloride [Moles/Vol] 108 mmol/L High 98-107 [facility] Comment on above: Performed By: #### L 100.0100, L500.4050 #### [facility] [address] [place], [address] CO2 [Moles/Vol] 22.0 mmol/L Normal 21.0-32.0 [facility] Comment on above: Performed By: #### L 100.0100, L500.4050 #### [facility] [address] [place], [address] Creatinine [Mass/Vol] 0.90 mg/dL Normal 0.70-1.30 [facility] Comment on above: Result Comment: The validity of the calculated GFR GFRAA in patients over 70 years has not been determined. Clinical correlation is essential. Performed By: #### L 100.0100, L500.4050 #### [facility] [address] [place], [address] EST GFR - AA 111 mL/min Normal >60 [facility] Comment on above: Result Comment: Afri can Vincentian GFR Calc Performed By: #### L 100.0100, L500.4050 #### [facility] [address] [place], [address] GAP 8 Normal 5-15 [facility] Comment on above: Performed By: #### L 100.0100, L500.4050 #### [facility] [address] [place], [address] GFR/1.73 sq M.predicted among non-blacks MDRD (S/P/Bld) [Vol rate/Area] 92 mL/min/{1.73_m2} Normal >60 [facility] Comment on above: Result Comment: Non- GFR Calc Performed By: #### L 100.0100, L500.4050 #### [facility] [address] [place], [address] Globulin (S) [Mass/Vol] 3.2 g/dL Normal 2.2-4.2 [facility] Comment on above: Performed By: #### L 100.0100, L500.4050 #### [facility] [address] [place], [address] Glucose [Mass/Vol] 111 mg/dL High 74-106 [facility] Comment on above: Result Comment: Fast ing Glucose result from 100 to 125 mg/dL suggests IMPAIRED HOMEOSTASIS per A.D.A. criteria. Performed By: #### L 100.0100, L500.4050 #### [facility] [address] [place], [address] Potassium [Moles/Vol] 4.0 mmol/L Normal 3.5-5.1 [facility] Comment on above: Performed By: #### L 100.0100, L500.4050 #### [facility] [address] [place], [address] Sodium [Moles/Vol] 138 mmol/L Normal 136-145 [facility] Comment on above: Performed By: #### L 100.0100, L500.4050 #### [facility] [address] [place], [address] T PROT 7.2 g/dL Normal 6.4-8.2 [facility] Comment on above: Performed By: #### L 100.0100, L500.4050 #### [facility] [address] [place], [address] Urea nitrogen [Mass/Vol] 28 mg/dL High 7-18 [facility] Comment on above: Performed By: #### L 100.0100, L500.4050 #### [facility] [address] [place], [address] Knee 4 or More Viewson 07-27 Knee 4 or More Views [facility] [address] [place] [address] Knee 4 or More Views MR#: [id number] Acct: [id number] Name: MILES TURNER Rep #: [id number] : 1965 M 59 From: Judd Davis MD PCP: Dr. Vinh Aguilar MD Status: DEP AMB Study: Knee 4 or More Views Date of Exam: 07/27/24 Exam# [id number] Ordering Dr: Too Latham DO [id number] STUDY: X-RAY - LEFT KNEE REASON FOR EXAM: Male, 59 years old. pain TECHNIQUE: 4 view(s) of the knee. COMPARISON: None. FINDINGS: Normal visualized distal femur. Normal visualized proximal tibia and fibula. Normal proximal tibiofibular articulation. There is severe degenerative arthrosis of the medial femorotibial compartment with severe joint space narrowing. There is severe degenerative arthrosis of the lateral femorotibial compartment with severe joint space narrowing. There is severe degenerative arthrosis of the patellofemoral articulation. There is a soft tissue prominence in the suprapatellar region suggesting a small volume joint effusion. The soft tissue structures are unremarkable. RAD/Knee 4 or More Views IMPRESSION: Degenerative arthrosis. Electronically Signed: Judd Davis MD at 9:15 EDT , CC: Dr. Too Latham DO; Dr. Vinh Aguilar MD Car Checker: Signed Normal [facility] Knee 4 or More Views [facility] [address] [place] [address] Knee 4 or More Views MR#: [id number] Acct: [id number] Name: MILES TURNER Rep #: [id number] : 1965 M 59 From: Judd Davis MD PCP: Dr. Vinh Aguilar MD Status: DEP AMB Study: Knee 4 or More Views Date of Exam: 07/27/24 Exam# [id number] Ordering Dr: Too Latham DO [id number] STUDY: X-RAY - RIGHT KNEE REASON FOR EXAM: Male, 59 years old. pain TECHNIQUE: 4 view(s) of the knee. COMPARISON: None. FINDINGS: Normal visualized distal femur. Normal visualized proximal tibia and fibula. Normal proximal tibiofibular articulation. There is severe degenerative arthrosis of the medial femorotibial compartment with severe joint space narrowing. There is severe degenerative arthrosis of the lateral femorotibial compartment with severe joint space narrowing. There is severe degenerative arthrosis of the patellofemoral articulation. There is a soft tissue prominence in the suprapatellar region suggesting a small volume joint effusion. The soft tissue structures are unremarkable. RAD/Knee 4 or More Views IMPRESSION: Degenerative arthrosis. Electronically Signed: Judd Davis MD at 9:14 EDT , CC: Dr. Too Latham DO; Dr. Vinh Aguilar MD Car Checker: Signed Normal [facility] Orthopedic Visit Reporton Orthopedic Visit Report [facility] [address] [place] [address] OFFICE VISIT Date of Service: 07/27/24 MR#: [id number] Acct: [id number] Name: MILES TURNER Rep #: [id number] : 1965 Provider: Dr. Too jones DO Age/Sex: 59/M Location: [facility] [place] Status: Signed Intake Vital Signs 12/13/19 16:07 07/27/24 08:18 Height 5 ft 9 in 5 ft 9 in Weight: 272 lb 8 oz BMI 40.2 Intake Visit Reasons: BL KNEES Accompanied by: Self Is patient in pain?: Yes Pain scale (1-10): 7 Allergies No Known Allergies Allergy (Verified 07/27/24 08:18) Medications ???Medication ???Instructions ???Recorded ???Confirmed ???Type fish oil-dha-epa 1,200 mg-144 1 ea PO DAILY 01/08/18 07/27/24 History mg-216 mg capsule gemfibrozil 600 mg tablet 600 mg PO BIDAC 01/08/18 07/27/24 History cholecalciferol (vitamin D3) 50 50 mcg PO QDAY 07/27/24 07/27/24 History mcg (2,000 unit) capsule etodolac 400 mg tablet 400 mg PO BID 07/27/24 07/27/24 History folic acid 1 mg tablet 1 mg PO QDAY 07/27/24 07/27/24 History leucovorin calcium 15 mg tablet mg PO 07/27/24 07/27/24 History methotrexate sodium 2.5 mg tablet 2.5 mg PO 07/27/24 07/27/24 History omeprazole 40 mg capsule,delayed 40 mg PO QDAY 07/27/24 07/27/24 History release valsartan 320 1 tab PO QDAY 07/27/24 07/27/24 History mg-hydrochlorothiazi de 25 mg tablet PFSH Family History (Updated 07/27/24 @ 08:23 by Alisson Capone MA) Mother Heart disease Diabetes Father Heart disease Social History (Updated 07/27/24 @ 08:23 by Alisson Capone MA) household members: spouse Smoking Status: Former smoker alcohol intake: current alcohol intake frequency: holidays/special occasions only HPI BL KNEES Details: This documentation accurately reflects the service provided and the decisions made by me, Dr. Too Latham, DO 07/27/24 0755. Part of today???s visit was documented by Michelle FRANZ, acting as scribe. MILES TURNER is a 59 year old M here today for Bilateral knee pain. Patient states that his knees have bothered him for about 6 years. Patient states the only injury to his right knee was he went down on ice and hit a rock no injury to his left. Patient states that his left is worse then right. Patient states he has had injection to his knee. Patient has had the gel injection and cortisone injections. Gel injection lasted about a month maybe a little longer. Cortisone injections last him weeks, maybe a month. Patient has done PT 3 years ago for his knees and he still does the exercises that they taught him. Patient takes Tylenol and Etodolac for his pain. Patient has tired ice and heat, heat is better then ice. Patient states his pain in his knees are all over, he states they are bone on bone. Patient would like to have injection in his knees today if possible. He also has bilateral groin pain worse on the left he did have an injection in the past which was not very helpful. He was only recently diagnosed with rheumatoid arthritis and recently started on methotrexate currently taking 5 tabs of 2.5mg. 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 He denies tobacco or alcohol use Ortho Exam General General: Yes no acute distress Neurologic: Yes alert and Yes oriented x3 Psychologic: Yes reasonable and appropriate Right Knee Skin/Wound: No erythema, No ecchymosis and No swelling Homans Sign: No Knee ROM: Yes ROM-Extension -20 to 0 (-3) and Yes ROM-Flexion 0-140 (93) Examination: No Med jt line tenderness, No Lat jt line tenderness and No TTP Pes Anserine Stability: NML: Anterior Drawer, NML: Posterior Drawer, NML: Valgus 0, NML: Valgus 30, NML: Varus 0 and NML: Varus 30 Patella Translation: 1 Left Knee Skin/Wound: No ecchymosis, No erythema and No swelling Knee ROM: Yes ROM-Extension -20 to 0 (-3) and Yes ROM-Flexion 0-140 (93) Examination: No med jt line tenderness and No Lat jt line tenderness Stability: NML: Anterior Drawer, NML: Bautista, NML: Posterior Drawer, NML: Valgus 0, NML: Valgus 30, NML: Varus 0 and NML: Varus 30 Patella Translation: 1 KNEE: no effusion varus deformity 2mm medial gapping with valgus stress Right Hip Skin: No Ecchymosis and No Erythema internal rotation @90 degree flexion: 0 degrees external rotation @90 degree extension: 20 degrees Special Tests: No TTP Greater Troch and No RROM flexion pain HIP: Patient is very stiff he does not have significant pain with hip range of motion. There is no gross motor or sensory deficits bilateral lower extremity there is no tenderness over the trochanteric bursa Left Hip Skin/Wound: No Ecchymosis, No soft tissue swelling and No Erythema Hip: Absent eccymosis, soft tissue swelling, erythema or tender to palp (more content not included)... Normal [facility] 06-08-2024 [facility] Telephone (INTMWS) MILES TURNER ([id number]) 1965 [facility] Date Time Provider Department 06/08/24 VINH AGUILAR INTMWS During your visit today, we recorded the following information about you: Ainval Rodriguez RN 06/08/2024 8:30 AM Signed Patient reports [facility] D Mark, tells him Lodine was discontined by pcp. Reports he is not taking ibuprofen. Reports Dr. Prescott, advised him he should be taking the Lodine. Asking pcp to send Rx for Lodine to [facility]. Pended. Vinh Aguilar MD 06/08/2024 1:40 PM Signed The following approved medication requests have been transmitted electronically. Requested Prescriptions Signed Prescriptions Disp Refills etodolac (LODINE) 400 mg tablet 60 tablet 5 Sig: Take 1 tablet by mouth two times a day. Authorizing Provider: VINH AGUILAR MD Allergies As of Date: 06/08/2024 (No Known Allergies) Date Reviewed: 05/15/2024 Reviewed by: Gin Crawford LPN - Fully Assessed Reason for Visit: Medication Question [9228] Primary Visit Diagnosis:Primary osteoarthritis of both knees [M17.0] Other Visit Diagnosis:Primary osteoarthritis of both hips [M16.0] Order(s):etodolac (LODINE) 400 mg tabletTake 1 tablet by mouth two times a day.Disp: 60 tabletRfl: 5 Prescriptions as of 06/08/2024 - etodolac (LODINE) 400 mg tablet Take 1 tablet by mouth two times a day. - TURMERIC ORAL Take 1,000 mg by mouth two times a day. - COLLAGEN MISC 2 teaspoonsful once daily. - gemfibrozil (LOPID) 600 mg tablet Take 1 tablet by mouth two times a day. - Valsartan-hydroCHLOR Othiazide 320-25 mg per tablet Take 1 tablet by mouth once daily. - omeprazole (PRILOSEC) 40 mg capsule Take 1 capsule by mouth once daily. - cholecalciferol, vitamin D3, (VITAMIN D3 ORAL) Take 5,000 Units by mouth once daily. - acetaminophen (TYLENOL) 500 mg tablet Take 1 tablet by mouth every 6 hours as needed for Pain. - Coral-3 Fatty Acids (FISH OIL) 500 mg cap Take 500 mg by mouth once daily. Problem List As Of Date 06/08/2024 Noted Resolved BENIGN HYPERTENSION [I10] 11/24/2007 HYPERLIPIDEMIA NEC/NOS [E78.5] 06/21/2015 ALLERGIC RHINITIS NEC [J30.89] 08/06/2007 Essential hypertension [I10] 11/24/2007 Anal Fissure [K60.2] 05/20/2008 06/30/2010 Rash and other nonspecific skin eruption [R21] 05/20/2008 11/29/2021 Medial epicondylitis [M77.00] 12/03/2009 11/29/2021 Arthritis of knee [M17.10] 11/30/2021 Primary osteoarthritis of both knees [M17.0] 03/30/2014 Left knee pain [M25.562] 05/17/2014 11/29/2021 Hypertriglyceridemia [E78.1] 06/21/2015 Obesity, Class III, BMI 40-49.9 (morbid obesity*06/21/2015 Family history of colon cancer [Z80.0] 06/15/2016 Gastroesophageal reflux disease without esophag*05/30/2018 Primary osteoarthritis of both hips [M16.0] 05/26/2021 History of compression fracture of spine [Z87.8*05/26/2021 Vitamin D deficiency [E55.9] 07/12/2021 Elevated ferritin [R79.89] 05/21/2024 Prescriptions ordered this encounter Disp Refills Start End ETODOLAC 400 MG TABLET 60 t* 5 06/08/2024 12/05/2024 Route: ORAL Sig: Take 1 tablet by mouth two times a day. Medications Discontinued During This Encounter Prescriptions - ibuprofen (MOTRIN) 800 mg tablet (Discontinued) Take 1 tablet by mouth every 8 hours as needed for pain. Take with food. Encounter Status:Closed by VINH AGUILAR on 06/08/24 Normal [facility] Ferritin SerPl-mCncon 2023 Ferritin [Mass/Vol] 766.0 ng/mL High 30.3-565.7 [facility] Comment on above: Order Comment: Speci men Type: BLOOD SPECIMEN Ordering Facility: [facility] Address: [address] [place] [address] Performed By: #### 2 276-4, 17981-8 #### [facility] CLIA [id number] [address] [place] [address] [place] Iron and Iron binding capaci ty panelon 06-05-2024 Iron [Mass/Vol] 80 ug/dL Normal 41-186 [facility] Comment on above: Order Comment: Speci men Type: BLOOD SPECIMEN Ordering Facility: [facility] Address: [address] [place] [address] Performed By: #### 2 276-4, 68439-4 #### [facility] CLIA [id number] [address] [place] [address] [place] Iron binding capacity [Mass/Vol] 363 ug/dL Normal 232-386 [facility] Comment on above: Order Comment: Speci men Type: BLOOD SPECIMEN Ordering Facility: [facility] Address: [address] [place] [address] Performed By: #### 2 276-4, 36545-7 #### [facility] CLIA [id number] [address] [place] [address] [place] Iron/TIBC [Molar ratio] 22.0 % Normal 15.0-57.0 [facility] Comment on above: Order Comment: Speci men Type: BLOOD SPECIMEN Ordering Facility: [facility] Address: [address] [place] [address] Performed By: #### 2 276-4, 52471-4 #### [facility] CLIA [id number] [address] [facility] [address] [place] ANTINUCLEAR ANTIBODIES DIREC Ton 06-02-2024 DONNA,DIRECT Negative Normal Negative [facility] Comment on above: Result Comment: Perf ormed at: [address] [id number] Saw Repairer: Jamey Garcia PhD, Phone: [phone] Performed By: #### L 505.7010, L3890.6300, L4600.0100, L500.4050, L3100.5475, L3890.6200, L100.0100, L3890.6100 ####[facility] [address] [place], [place], [id number] CCP IgG Antibodieson 024 CCP IgG Ab. 3 units Normal 0-19 [facility] Comment on above: Result Comment: Nega tive <20 Weak positive 20 - 39 Moderate positive 40 - 59 Strong positive >59 Performed at: [address] [id number] Saw Repairer: Jamey Garcia PhD, Phone: [phone] Performed By: #### L 505.7010, L3890.6300, L4600.0100, L500.4050, L3100.5475, L3890.6200, L100.0100, L3890.6100 ####[facility] [address] [place], [place], [id number] CBC W/Diff, Automatedon 05-14 Absolute Lymph 1.69 X10 3/uL Normal 0.83-4.51 [facility] Comment on above: Performed By: #### L 505.7010, L3890.6300, L4600.0100, L500.4050, L3100.5475, L3890.6200, L100.0100, L3890.6100 ####[facility] [address] [place], [address] Absolute Neut 5.4 X10 3/uL Normal 2.0-7.7 [facility] Comment on above: Performed By: #### L 505.7010, L3890.6300, L4600.0100, L500.4050, L3100.5475, L3890.6200, L100.0100, L3890.6100 ####[facility] [address] [place], [address] Basophils/100 WBC (Bld) 0.6 % Normal 0-1 [facility] Comment on above: Performed By: #### L 505.7010, L3890.6300, L4600.0100, L500.4050, L3100.5475, L3890.6200, L100.0100, L3890.6100 ####[facility] [address] [place], [address] Eosinophils/100 WBC (Bld) 1.1 % Normal 0-5 [facility] Comment on above: Performed By: #### L 505.7010, L3890.6300, L4600.0100, L500.4050, L3100.5475, L3890.6200, L100.0100, L3890.6100 ####[facility] [address] [place], [address] Erythrocyte distribution width (RBC) [Ratio] 12.4 % Normal 11.6-14.6 [facility] Comment on above: Performed By: #### L 505.7010, L3890.6300, L4600.0100, L500.4050, L3100.5475, L3890.6200, L100.0100, L3890.6100 ####[facility] [address] [place], [address] Hematocrit (Bld) [Volume fraction] 44.7 % Normal 40-54 [facility] Comment on above: Performed By: #### L 505.7010, L3890.6300, L4600.0100, L500.4050, L3100.5475, L3890.6200, L100.0100, L3890.6100 ####[facility] [address] [place], [address] Hemoglobin (Bld) [Mass/Vol] 15.3 g/dL Normal 13.0-16.5 [facility] Comment on above: Performed By: #### L 505.7010, L3890.6300, L4600.0100, L500.4050, L3100.5475, L3890.6200, L100.0100, L3890.6100 ####[facility] [address] [place], [address] IG% 0.400 Normal 0.0-0.9 [facility] Comment on above: Result Comment: IG% - Immature Granulocytes (promyelocytes, myelocytes and metamyelocytes) > 1% indicates that a LEFT SHIFT is Present. Performed By: #### L 505.7010, L3890.6300, L4600.0100, L500.4050, L3100.5475, L3890.6200, L100.0100, L3890.6100 ####[facility] [address] [place], [address] Lymphocytes/100 WBC (Bld) 21.5 % Normal 19-41 [facility] Comment on above: Performed By: #### L 505.7010, L3890.6300, L4600.0100, L500.4050, L3100.5475, L3890.6200, L100.0100, L3890.6100 ####[facility] [address] [place], [address] MCH (RBC) [Entitic mass] 32.9 pg High 27.0-32.0 [facility] Comment on above: Performed By: #### L 505.7010, L3890.6300, L4600.0100, L500.4050, L3100.5475, L3890.6200, L100.0100, L3890.6100 ####[facility] [address] [place], [address] MCHC (RBC) [Mass/Vol] 34.2 g/dL Normal 32-36 [facility] Comment on above: Performed By: #### L 505.7010, L3890.6300, L4600.0100, L500.4050, L3100.5475, L3890.6200, L100.0100, L3890.6100 ####[facility] [address] [place], [address] MCV (RBC) [Entitic vol] 96.1 fL High 80-94 [facility] Comment on above: Performed By: #### L 505.7010, L3890.6300, L4600.0100, L500.4050, L3100.5475, L3890.6200, L100.0100, L3890.6100 ####[facility] [address] [place], [address] Monocytes/100 WBC (Bld) 7.6 % Normal 0-10 [facility] Comment on above: Performed By: #### L 505.7010, L3890.6300, L4600.0100, L500.4050, L3100.5475, L3890.6200, L100.0100, L3890.6100 ####[facility] [address] [place], [address] Neutrophils/100 WBC (Bld) 68.8 % Normal 47-70 [facility] Comment on above: Performed By: #### L 505.7010, L3890.6300, L4600.0100, L500.4050, L3100.5475, L3890.6200, L100.0100, L3890.6100 ####[facility] [address] [place], [address](560) Nucleated RBC (Bld) [#/Vol] 0 10*3/uL Normal 0-5 [facility] Comment on above: Performed By: #### L 505.7010, L3890.6300, L4600.0100, L500.4050, L3100.5475, L3890.6200, L100.0100, L3890.6100 ####[facility] [address] [place], [address](213) Platelet mean volume (Bld) [Entitic vol] 10.6 fL Normal 6.2-12.0 [facility] Comment on above: Performed By: #### L 505.7010, L3890.6300, L4600.0100, L500.4050, L3100.5475, L3890.6200, L100.0100, L3890.6100 ####[facility] [address], [address] Platelets (Bld) [#/Vol] 222 10*3/uL Normal 150-450 [facility] Comment on above: Performed By: #### L 505.7010, L3890.6300, L4600.0100, L500.4050, L3100.5475, L3890.6200, L100.0100, L3890.6100 ####[facility] [address] [place], [address] RBC (Bld) [#/Vol] 4.65 10*6/uL Normal 4.6-6.2 [facility] Comment on above: Performed By: #### L 505.7010, L3890.6300, L4600.0100, L500.4050, L3100.5475, L3890.6200, L100.0100, L3890.6100 ####[facility] [address] [place], [place], [phone] RDW SD 43.0 fl Normal 35.1-43.9 [facility] Comment on above: Performed By: #### L 505.7010, L3890.6300, L4600.0100, L500.4050, L3100.5475, L3890.6200, L100.0100, L3890.6100 ####[facility] [address] [place], [place], [phone] WBC (Bld) [#/Vol] 7.9 10*3/uL Normal 4.4-11.0 [facility] Comment on above: Performed By: #### L 505.7010, L3890.6300, L4600.0100, L500.4050, L3100.5475, L3890.6200, L100.0100, L3890.6100 ####[facility] [address] [place], [place], [phone] Comprehensive Metabolic Prof [facility] 06-01-2024 Albumin [Mass/Vol] 4.1 g/dL Normal 3.2-5.0 [facility] Comment on above: Performed By: #### L 505.7010, L3890.6300, L4600.0100, L500.4050, L3100.5475, L3890.6200, L100.0100, L3890.6100 ####[facility] [address] [place], [address] Albumin/Globulin [Mass ratio] 1.2 {ratio} Normal 0.9-2.4 [facility] Comment on above: Performed By: #### L 505.7010, L3890.6300, L4600.0100, L500.4050, L3100.5475, L3890.6200, L100.0100, L3890.6100 ####[facility] [address] [place], [place], [id number] ALK P 69 U/L Normal 45-117 [facility] Comment on above: Performed By: #### L 505.7010, L3890.6300, L4600.0100, L500.4050, L3100.5475, L3890.6200, L100.0100, L3890.6100 ####[facility] [address] [place], [address] ALT [Catalytic activity/Vol] 26 U/L Normal 16-61 [facility] Comment on above: Performed By: #### L 505.7010, L3890.6300, L4600.0100, L500.4050, L3100.5475, L3890.6200, L100.0100, L3890.6100 ####[facility] [address] [place], [place], [phone] AST [Catalytic activity/Vol] 13 U/L Low 15-37 [facility] Comment on above: Performed By: #### L 505.7010, L3890.6300, L4600.0100, L500.4050, L3100.5475, L3890.6200, L100.0100, L3890.6100 ####[facility] [address] [place], [place], [phone] Bilirubin [Mass/Vol] 0.60 mg/dL Normal 0.20-1.00 [facility] Comment on above: Result Comment: For patients on eltrombopag therapy, use of Dimension [place] TBIL is not recommended. Performed By: #### L 505.7010, L3890.6300, L4600.0100, L500.4050, L3100.5475, L3890.6200, L100.0100, L3890.6100 ####[facility] [address] [place], [address] BUN/CRE 36.0 RATIO High 10-20 [facility] Comment on above: Performed By: #### L 505.7010, L3890.6300, L4600.0100, L500.4050, L3100.5475, L3890.6200, L100.0100, L3890.6100 ####[facility] [address] [place], [address] CA,Total 9.8 mg/dL Normal 8.5-10.1 [facility] Comment on above: Performed By: #### L 505.7010, L3890.6300, L4600.0100, L500.4050, L3100.5475, L3890.6200, L100.0100, L3890.6100 ####[facility] [address] [place], [address] Chloride [Moles/Vol] 111 mmol/L High 98-107 [facility] Comment on above: Performed By: #### L 505.7010, L3890.6300, L4600.0100, L500.4050, L3100.5475, L3890.6200, L100.0100, L3890.6100 ####[facility] [address] [place], [address] CO2 [Moles/Vol] 21.0 mmol/L Normal 21.0-32.0 [facility] Comment on above: Performed By: #### L 505.7010, L3890.6300, L4600.0100, L500.4050, L3100.5475, L3890.6200, L100.0100, L3890.6100 ####[facility] [address] [place], [address] Creatinine [Mass/Vol] 0.80 mg/dL Normal 0.70-1.30 [facility] Comment on above: Result Comment: The validity of the calculated GFR GFRAA in patients over 70 years has not been determined. Clinical correlation is essential. Performed By: #### L 505.7010, L3890.6300, L4600.0100, L500.4050, L3100.5475, L3890.6200, L100.0100, L3890.6100 ####[facility] [address] [place], [place], [phone](324) EST GFR - AA 126 mL/min Normal >60 [facility] Comment on above: Result Comment: Afri can Vincentian GFR Calc Performed By: #### L 505.7010, L3890.6300, L4600.0100, L500.4050, L3100.5475, L3890.6200, L100.0100, L3890.6100 ####[facility] [address] [place], [address] GAP 9 Normal 5-15 [facility] Comment on above: Performed By: #### L 505.7010, L3890.6300, L4600.0100, L500.4050, L3100.5475, L3890.6200, L100.0100, L3890.6100 ####[facility] [address] [place], [address] GFR/1.73 sq M.predicted among non-blacks MDRD (S/P/Bld) [Vol rate/Area] 104 mL/min/{1.73_m2} Normal >60 [facility] Comment on above: Result Comment: Non- GFR Calc Performed By: #### L 505.7010, L3890.6300, L4600.0100, L500.4050, L3100.5475, L3890.6200, L100.0100, L3890.6100 ####[facility] [address] [place], [place], [phone](031) Globulin (S) [Mass/Vol] 3.5 g/dL Normal 2.2-4.2 [facility] Comment on above: Performed By: #### L 505.7010, L3890.6300, L4600.0100, L500.4050, L3100.5475, L3890.6200, L100.0100, L3890.6100 ####[facility] [address] [place], [address] Glucose [Mass/Vol] 99 mg/dL Normal 74-106 [facility] Comment on above: Performed By: #### L 505.7010, L3890.6300, L4600.0100, L500.4050, L3100.5475, L3890.6200, L100.0100, L3890.6100 ####[facility] [address] [place], [address] Potassium [Moles/Vol] 4.2 mmol/L Normal 3.5-5.1 [facility] Comment on above: Performed By: #### L 505.7010, L3890.6300, L4600.0100, L500.4050, L3100.5475, L3890.6200, L100.0100, L3890.6100 ####[facility] [address] [place], [address] Sodium [Moles/Vol] 141 mmol/L Normal 136-145 [facility] Comment on above: Performed By: #### L 505.7010, L3890.6300, L4600.0100, L500.4050, L3100.5475, L3890.6200, L100.0100, L3890.6100 ####[facility] [address] [place], [address] T PROT 7.6 g/dL Normal 6.4-8.2 [facility] Comment on above: Performed By: #### L 505.7010, L3890.6300, L4600.0100, L500.4050, L3100.5475, L3890.6200, L100.0100, L3890.6100 ####[facility] [address] [place], [place], [id number] Urea nitrogen [Mass/Vol] 29 mg/dL High 7-18 [facility] Comment on above: Performed By: #### L 505.7010, L3890.6300, L4600.0100, L500.4050, L3100.5475, L3890.6200, L100.0100, L3890.6100 ####[facility] [address] [place], [place], [id number] Hepatitis B Surface Antibody on 06-01-2024 HEP B Surf Ab Non-Reactive Normal [facility] Comment on above: Result Comment: Non Reactive: Inconsistent with immunity less than <10 mIU/mL Reactive: Consistent with immunity greater than or equal to 10 mIU/mL Performed By: #### L 505.7010, L3890.6300, L4600.0100, L500.4050, L3100.5475, L3890.6200, L100.0100, L3890.6100 ####[facility] [address] [place], [address] Hepatitis B Surface Antigeno n 06-01-2024 HEP B Surf Ag Non-Reactive Normal Nonreactive [facility] Comment on above: Performed By: #### L 505.7010, L3890.6300, L4600.0100, L500.4050, L3100.5475, L3890.6200, L100.0100, L3890.6100 ####[facility] [address] [place], [address] Hepatitis C Antibodyon 06-01 Hepatitis C AB Non-Reactive Normal Nonreactive [facility] Comment on above: Result Comment: Non Reactive: < 0.8 Equivocal: >/= 0.8 to < 1.0 Reactive: >/= 1.0 The CDC requires that a reactive/equivocal HCV antibody result be sent out for confirmation. HCV Quant by PCR testing. Performed By: #### L 505.7010, L3890.6300, L4600.0100, L500.4050, L3100.5475, L3890.6200, L100.0100, L3890.6100 ####[facility] [address] [place], [address] Pelvis 1 or 2 Viewson 2023 Pelvis 1 or [address] [facility] Imaging Services [address] [place] [address] Pelvis 1 or 2 Views MR#: [id number] Acct: [id number] Name: MILES TURNER Rep #: [id number] : 1965 M 59 From: King Dominguez MD PCP: Dr. Vinh Aguilar MD Status: [facility] CLI Study: Pelvis 1 or 2 Views Date of Exam: 06/01/24 Exam# [id number] Ordering Dr: Mari Prescott MD [id number] STUDY: X-RAY - PELVIS REASON FOR EXAM: Male, 59 years old. Pain. TECHNIQUE: One view of the pelvis was obtained. COMPARISON: None. FINDINGS: There is a non-specific bowel gas pattern. Soft tissue calcification projected proximal to the right greater trochanter. Osteopenia. Normal bilateral iliac wings, sacroiliac joints and visualized sacrum. Normal visualized bilateral superior and inferior pubic rami. Mild arthrosis of the symphysis pubis. Normal ischial tuberosities. Severe arthrosis of both hips, left greater than right with complete loss of articular cartilage superiorly with subchondral cyst formation and sclerosis. RAD/Pelvis 1 or 2 Views IMPRESSION: Osteopenia with severe osteoarthritic changes of both hips, left slightly greater than right, as outlined above. Soft tissue calcification projected proximal to the greater trochanter on the right. Electronically Signed: King Dominguez MD at 10:17 EDT , CC: Dr. Mari Prescott MD; Dr. Vinh Aguilar MD Car Checker: Signed Normal [facility] Rheumatoid Factoron 06-01-20 24 RHEUMATOID FAC < 10.0 Normal <15 [facility] Comment on above: Performed By: #### L 505.7010, L3890.6300, L4600.0100, L500.4050, L3100.5475, L3890.6200, L100.0100, L3890.6100 ####[facility] [id number] [place], [address] [facility] 05-29-2024 [facility] Telephone (INTMWS) MILES TURNER ([id number]) 1965 [facility] Date Time Provider Department 05/29/24 VINH AGUILAR INTWS During your visit today, we recorded the following information about you: Pau Roberts LPN 05/29/2024 9:24 AM Signed Patient calling asking if he could have something else for pain? 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 He said he uses Etodlac 400 mg one tablet twice daily, but not helping much, lasts for few hours. He can not get appt with Rheumatology until later June or later. Patient uses [facility] for his pharmacy. Please advise Vinh Aguilar MD 05/29/2024 1:17 PM Signed The following approved medication requests have been transmitted electronically. Requested Prescriptions Signed Prescriptions Disp Refills ibuprofen (MOTRIN) 800 mg tablet 90 tablet 2 Sig: Take 1 tablet by mouth every 8 hours as needed for pain. Take with food. Authorizing Provider: VINH AGUILAR MD Allergies As of Date: 05/29/2024 (No Known Allergies) Date Reviewed: 05/15/2024 Reviewed by: Gin Crawford LPN - Fully Assessed Reason for Visit: Patient Question [1477] Primary Visit Diagnosis:Primary osteoarthritis of both knees [M17.0] Other Visit Diagnosis:Primary osteoarthritis of both hips [M16.0] Order(s):ibuprofen (MOTRIN) 800 mg tabletTake 1 tablet by mouth every 8 hours as needed for pain. Take with food.Disp: 90 tabletRfl: 2 Prescriptions as of 05/29/2024 - ibuprofen (MOTRIN) 800 mg tablet Take 1 tablet by mouth every 8 hours as needed for pain. Take with food. - TURMERIC ORAL Take 1,000 mg by mouth two times a day. - COLLAGEN MISC 2 teaspoonsful once daily. - gemfibrozil (LOPID) 600 mg tablet Take 1 tablet by mouth two times a day. - Valsartan-hydroCHLOR Othiazide 320-25 mg per tablet Take 1 tablet by mouth once daily. - omeprazole (PRILOSEC) 40 mg capsule Take 1 capsule by mouth once daily. - cholecalciferol, vitamin D3, (VITAMIN D3 ORAL) Take 5,000 Units by mouth once daily. - acetaminophen (TYLENOL) 500 mg tablet Take 1 tablet by mouth every 6 hours as needed for Pain. - Coral-3 Fatty Acids (FISH OIL) 500 mg cap Take 500 mg by mouth once daily. Problem List As Of Date 05/29/2024 Noted Resolved BENIGN HYPERTENSION [I10] 11/24/2007 HYPERLIPIDEMIA NEC/NOS [E78.5] 06/21/2015 ALLERGIC RHINITIS NEC [J30.89] 08/06/2007 Essential hypertension [I10] 11/24/2007 Anal Fissure [K60.2] 05/20/2008 06/30/2010 Rash and other nonspecific skin eruption [R21] 05/20/2008 11/29/2021 Medial epicondylitis [M77.00] 12/03/2009 11/29/2021 Arthritis of knee [M17.10] 11/30/2021 Primary osteoarthritis of both knees [M17.0] 03/30/2014 Left knee pain [M25.562] 05/17/2014 11/29/2021 Hypertriglyceridemia [E78.1] 06/21/2015 Obesity, Class III, BMI 40-49.9 (morbid obesity*06/21/2015 Family history of colon cancer [Z80.0] 06/15/2016 Gastroesophageal reflux disease without esophag*05/30/2018 Primary osteoarthritis of both hips [M16.0] 05/26/2021 History of compression fracture of spine [Z87.8*05/26/2021 Vitamin D deficiency [E55.9] 07/12/2021 Elevated ferritin [R79.89] 05/21/2024 Prescriptions ordered this encounter Disp Refills Start End IBUPROFEN 800 MG TABLET 90 t* 2 05/29/2024 Route: ORAL Sig: Take 1 tablet by mouth every 8 hours as needed for pain. Take with food. Medications Discontinued During This Encounter Prescriptions - etodolac (LODINE) 400 mg tablet (Discontinued) Take 1 tablet by mouth two times a day. Encounter Status:Closed by VINH AGUILAR on 05/29/24 Normal [facility] XR KNEE GENERAL 4V AP BOTH/P A BOTH/LAT/MERC BILATERALon 03-07-2023 [facility] COLONOSCOPY SCREENINGon 05-15 [facility] No Panel Informationon 05-05 Radiology Study observation (narrative) [facility] XR Lumbar spine 3 Viewson IMPRESSION: Compression fractures in the lower thoracic spine of uncertain age. Spondylosis of the lumbar spine. Car Checker: PSCB Transcribe Date/Time: May 05 2021 2:50P Dictated by : NASH EMMANUEL MD This examination was interpreted and the report reviewed and electronically signed by: NASH EMMANUEL MD on May 05 2021 2:52PM [facility] DIVISION OF RADIOLOGY * * *Final Report* * * DATE OF EXAM: May 05 2021 11:34AM WOX [id number] - XR LUMBAR 3V AP/LAT/L5-S1 / PROCEDURE REASON: Tenderness of back * * * * Physician Interpretation * * * * Lumbar spine radiographs HISTORY: 55 years old Clinical information: Tenderness of back pt states pain in low back for many years, a month ago started having pain in lateral left hip area no inj TECHNIQUE: Images: XR LUMBAR 3V AP/LAT/L5-S1 Comparison: None. RESULT: Findings: Narrowing of the L4-5 and L5-S1 intervertebral disc spaces. Intervertebral disc space narrowing and endplate osteophyte formation at multiple levels in the lumbar spine. Possible compression fractures in the lower thoracic spine. Minimal retrolisthesis of L1 on L2. Paraspinous soft tissues are unremarkable in appearance. DIVISION OF RADIOLOGY Provider, [facility] [place] - 05/05/2021 * * *Final Report* * * DATE OF EXAM: May 05 2021 11:34AM WOX [id number] - XR LUMBAR 3V AP/LAT/L5-S1 / PROCEDURE REASON: Tenderness of back * * * * Physician Interpretation * * * * Lumbar spine radiographs HISTORY: 55 years old Clinical information: Tenderness of back pt states pain in low back for many years, a month ago started having pain in lateral left hip area no inj TECHNIQUE: Images: XR LUMBAR 3V AP/LAT/L5-S1 Comparison: None. RESULT: Findings: Narrowing of the L4-5 and L5-S1 intervertebral disc spaces. Intervertebral disc space narrowing and endplate osteophyte formation at multiple levels in the lumbar spine. Possible compression fractures in the lower thoracic spine. Minimal retrolisthesis of L1 on L2. Paraspinous soft tissues are unremarkable in appearance. IMPRESSION IMPRESSION: Compression fractures in the lower thoracic spine of uncertain age. Spondylosis of the lumbar spine. Car Checker: RASTA Transcribe Date/Time: May 05 2021 2:50P Dictated by : NASH EMMANUEL MD This examination was interpreted and the report reviewed and electronically signed by: NASH EMMANUEL MD on May 05 2021 2:52PM EST [facility] XR Pelvis and Hip - left AP and Lateral frogon 05-05-2021 IMPRESSION: Osteoarthrosis of the hips. Car Checker: RASTA Transcribe Date/Time: May 05 2021 2:49P Dictated by : NASH EMMANUEL MD This examination was interpreted and the report reviewed and electronically signed by: NASH EMMANUEL MD on May 05 2021 2:50PM EST DIVISION OF RADIOLOGY * * *Final Report* * * DATE OF EXAM: May 05 2021 11:34AM WOX 5351 - XR HIP 3V PELV+ AP/LAT LT / PROCEDURE REASON: Hip pain, acute, left * * * * Physician Interpretation * * * * Pelvis and left hip radiographs HISTORY: 55 years old Clinical information: Hip pain, acute, left pt states pain in low back for many years, a month ago started having pain in lateral left hip area no inj TECHNIQUE: Images: XR HIP 3V PELV+ AP/LAT LT Comparison: None. RESULT: Findings: Narrowing superior lateral left hip joint space. Osteophyte formation on the left femoral head and acetabulum. No fracture or dislocation. Narrowing of superior lateral right hip joint space. Osteophyte formation on the right femoral head and acetabulum. Remainder of the imaged bony pelvis appears to be intact. Pubic symphysis and SI joints are intact. Right-sided convex curvature and spondylosis of the imaged lumbar spine. DIVISION OF RADIOLOGY Provider, [facility] [place] - 05/05/2021 * * *Final Report* * * DATE OF EXAM: May 05 2021 11:34AM WOX 5351 - XR HIP 3V PELV+ AP/LAT LT / PROCEDURE REASON: Hip pain, acute, left * * * * Physician Interpretation * * * * Pelvis and left hip radiographs HISTORY: 55 years old Clinical information: Hip pain, acute, left pt states pain in low back for many years, a month ago started having pain in lateral left hip area no inj TECHNIQUE: Images: XR HIP 3V PELV+ AP/LAT LT Comparison: None. RESULT: Findings: Narrowing superior lateral left hip joint space. Osteophyte formation on the left femoral head and acetabulum. No fracture or dislocation. Narrowing of superior lateral right hip joint space. Osteophyte formation on the right femoral head and acetabulum. Remainder of the imaged bony pelvis appears to be intact. Pubic symphysis and SI joints are intact. Right-sided convex curvature and spondylosis of the imaged lumbar spine. IMPRESSION IMPRESSION: Osteoarthrosis of the hips. Car Checker: RASTA Transcribe Date/Time: May 05 2021 2:49P Dictated by : NASH EMMANUEL MD This examination was interpreted and the report reviewed and electronically signed by: NASH EMMANUEL MD on May 05 2021 2:50PM EST [facility] XR Pelvis and Hip - left AP and Lateral frogOrdered By: [facility] Provider on 05-05-2021 [facility] No Panel Information [facility] Vital Signs Date Time Vital Sign Value Performing Clinician Kassandra cecilia 05-10-2025 09:04-0400 Body height 175.[address] Vinh Aguilar MD Work Phone: 0(153)138-694493 [place] [address] 05-10-2025 09:04-0400 Body mass index (BMI) [Ratio] 40.1 kg/m2 Dr. Vinh Aguilar MD Work Phone: 9(766)443-963202 [address] 05-10-2025 09:04-0400 Body weight 123.[address] Vinh Aguilar MD Work Phone: 3(298)085-236366 [place] [address] 05-03-2025 08:37-0400 Body height 175.[address] Vinh Aguilar MD Work Phone: 8(079)804-000366 [place] [address] 05-03-2025 08:37-0400 Body mass index (BMI) [Ratio] 39.9 kg/m2 Dr. Vinh Aguilar MD Work Phone: 5(534)245-015993 [place] [address] 05-03-2025 08:37-0400 Body weight 122.[address] Vinh Aguilar MD Work Phone: 1(203)650-023893 [place] [address] 04-26-2025 08:25-0400 Body height 175.[address] Vinh Aguilar MD Work Phone: 3(713)416-741993 [place] [address] 04-26-2025 08:25-0400 Body mass index (BMI) [Ratio] 39.9 kg/m2 Dr. Vinh Aguilar MD Work Phone: 6(881)768-263493 [place] [address] 04-26-2025 08:25-0400 Body weight 122.[address] Vinh Aguilar MD Work Phone: 7(291)026-174566 [place] [address] 04-12-2025 08:27-0400 Body height 175.[address] Vinh Aguilar MD Work Phone: 4(845)725-299866 [place] [address] 04-12-2025 08:27-0400 Body mass index (BMI) [Ratio] 38.4 kg/m2 Dr. Vinh Aguilar MD Work Phone: 8(602)939-948493 [place] [address] 04-12-2025 08:27-0400 Body weight 117.[address] Vinh Aguilar MD Work Phone: 9(481)928-378266 [place] [address] 02-23-2025 17:15-0400 Body temperature 97.9 [degF] Dr. Vinh Aguilar MD Work Phone: 8(725)479-496366 [place] [address] 02-23-2025 17:15-0400 Diastolic blood pressure 83 mm[Hg] Dr. Vinh Aguilar MD Work Phone: 9(986)597-309466 [place] [address] 02-23-2025 17:15-0400 Heart rate 94 /min Dr. Vinh Aguilar MD Work Phone: 3(962)674-367866 [place] [address] 02-23-2025 17:15-0400 Respiratory rate 16 /min Dr. Vinh Aguilar MD Work Phone: 1(168)824-715966 [place] [address] 02-23-2025 17:15-0400 SaO2% (BldA) [Mass fraction] 94 % Dr. Vinh Aguilar MD Work Phone: 3(021)556-239666 [place] [address] 02-23-2025 17:15-0400 Systolic blood pressure 137 mm[Hg] Dr. Vinh Aguilar MD Work Phone: 5(735)393-052593 [place] [address] 02-23-2025 14:15-0400 Inhaled oxygen flow rate 4 L/min Dr. Vinh Aguilar MD Work Phone: 5(142)356-033766 [place] [address] 02-23-2025 08:40-0400 Body height 175.[address] Vinh Aguilar MD Work Phone: 0(960)715-940066 [place] [address] 02-23-2025 08:40-0400 Body mass index (BMI) [Ratio] 38.2 kg/m2 Dr. Vinh Aguilar MD Work Phone: 8(187)640-410566 [place] [address] 02-23-2025 08:40-0400 Body weight 117.[address] Vinh Aguilar MD Work Phone: 2(788)854-598866 [place] [address] 01-11-2025 10:47-0400 Body height 175.[address] Vinh Aguilar MD Work Phone: 5(912)774-719766 [place] [address] 01-11-2025 10:47-0400 Body mass index (BMI) [Ratio] 37.8 kg/m2 Dr. Vinh Aguilar MD Work Phone: 1(121)935-357466 [place] [address] 01-11-2025 10:47-0400 Body weight 116.[address] Vinh Aguilar MD Work Phone: 9(794)100-924966 [place] [address] 12-29-2024 14:00-0400 Body temperature 98.3 [degF] Dr. Vinh Aguilar MD Work Phone: 5(334)029-393066 [place] [address] 12-29-2024 14:00-0400 Heart rate 85 /min Dr. Vinh Aguilar MD Work Phone: 7(850)790-769866 [place] [address] 12-29-2024 14:00-0400 Respiratory rate 16 /min Dr. Vinh Aguilar MD Work Phone: 2(384)803-805366 [place] [address] 12-29-2024 14:00-0400 SaO2% (BldA) [Mass fraction] 96 % Dr. Vinh Aguilar MD Work Phone: 0(494)583-652166 [place] [address] 12-29-2024 12:50-0400 Diastolic blood pressure 81 mm[Hg] Dr. Vinh Aguilar MD Work Phone: 3(145)069-965666 [place] [address] 12-29-2024 12:50-0400 Systolic blood pressure 124 mm[Hg] Dr. Vinh Aguilar MD Work Phone: 6(593)584-692966 [place] [address] 12-29-2024 10:50-0400 Inhaled oxygen flow rate 4 L/min Dr. Vinh Aguilar MD Work Phone: 4(122)689-767766 [place] [address] 12-29-2024 06:05-0400 Body height 175.[address] Vinh Aguilar MD Work Phone: 0(861)339-387466 [place] [address] 12-29-2024 06:05-0400 Body mass index (BMI) [Ratio] 37.5 kg/m2 Dr. Vinh Aguilar MD Work Phone: [facility] 12-29-2024 06:05-0400 Body weight 115.[address] Vinh Aguilar MD Work Phone: [facility] 12-21-2024 17:29-0400 Body mass index (BMI) [Ratio] 37.02 kg/m2 Vinh Aguilar MD Work Phone: [facility] 12-21-2024 17:29-0400 Body temperature 98.01 [degF] Vinh Aguilar MD Work Phone: [facility] 12-21-2024 17:29-0400 Body weight 117.3 kg Vinh Aguilar MD Work Phone: [facility] 12-21-2024 17:29-0400 Diastolic blood pressure 78 mm[Hg] Vinh Aguilar MD Work Phone: [facility] 12-21-2024 17:29-0400 Heart rate 72 /min Vinh Aguilar MD Work Phone: [facility] 12-21-2024 17:29-0400 Respiratory rate 18 /min Vinh Aguilar MD Work Phone: [facility] 12-21-2024 17:29-0400 Systolic blood pressure 116 mm[Hg] Vinh Aguilar MD Work Phone: [facility] 11-04-2024 15:56-0500 Body height 176.[address] Vinh Aguilar MD Work Phone: [facility] 11-04-2024 15:56-0500 Body mass index (BMI) [Ratio] 38.6 kg/m2 Dr. Vinh Aguilar MD Work Phone: [facility] 11-04-2024 15:56-0500 Body weight 120.[address] Vinh Aguilar MD Work Phone: [facility] 05-15-2024 08:04-0400 Body height 178 cm Vinh Augilar MD Work Phone: [facility] 05-15-2024 08:04-0400 Body mass index (BMI) [Ratio] 39.14 kg/m2 Vinh Aguilar MD Work Phone: [facility] 05-15-2024 08:04-0400 Body temperature 98.8 [degF] Vinh Aguilar MD Work Phone: [facility] 05-15-2024 08:04-0400 Body weight 124 kg Vinh Aguilar MD Work Phone: [facility] 05-15-2024 08:04-0400 Diastolic blood pressure 68 mm[Hg] Vinh Aguilar MD Work Phone: [facility] 05-15-2024 08:04-0400 Heart rate 73 /min Vinh Aguilar MD Work Phone: [facility] 05-15-2024 08:04-0400 Respiratory rate 16 /min Vinh Aguilar MD Work Phone: [facility] 05-15-2024 08:04-0400 SaO2% (BldA) [Mass fraction] 97 % Vinh Aguilar MD Work Phone: [facility] 05-15-2024 08:04-0400 Systolic blood pressure 114 mm[Hg] Vinh Aguilar MD Work Phone: [facility] 11-20-2023 16:08-0500 Body temperature 99.5 [degF] Noemi OcampoRuby KOSHER SEALER.DIRECTOR DIGITAL STRATEGY Work Phone: [facility] 11-20-2023 16:08-0500 Body weight 126.55 kg Noemi Ruby KOSHER SEALER.DIRECTOR D[employer]ITAL STRATEGY Work Phone: [facility] 11-20-2023 16:08-0500 Diastolic blood pressure 70 mm[Hg] Noemi Ruby KOSHER SEALER.DIRECTOR DIGITAL STRATEGY Work Phone: [facility] 02-07-2024 16:08-0500 Heart rate 64 /min Noemi Beltran KOSHER SEALER.DIRECTOR DIGITAL STRATEGY Work Phone: [facility] 11-20-2023 16:08-0500 Respiratory rate 20 /min Noemi Beltran KOSHER SEALER.DIRECTOR DIGITAL STRATEGY Work Phone: [facility] 11-20-2023 16:08-0500 Systolic blood pressure 118 mm[Hg] Noemi Beltran KOSHER SEALER.DIRECTOR DIGITAL STRATEGY Work Phone: [facility] 05-13-2023 16:47-0400 Body height 175.3 cm Vinh Aguilar MD Work Phone: [facility] 05-13-2023 16:47-0400 Body weight 121.56 kg Vinh Aguilar MD Work Phone: [facility] 05-13-2023 16:47-0400 Diastolic blood pressure 84 mm[Hg] Vinh Aguilar MD Work Phone: [facility] 05-13-2023 16:47-0400 Heart rate 72 /min Vinh Aguilar MD Work Phone: [facility] 05-13-2023 16:47-0400 Respiratory rate 20 /min Vinh Aguilar MD Work Phone: [facility] 05-13-2023 16:47-0400 Systolic blood pressure 128 mm[Hg] Vinh Aguilar MD Work Phone: [facility] 03-07-2023 09:33-0400 Body height 175.3 cm Satish Rosas MD Work Phone: [facility] 03-07-2023 09:33-0400 Body weight 117.94 kg Satish Rosas MD Work Phone: [facility] 06-22-2022 09:15-0400 Body height 175.3 cm Hailey Hodges PA-C Work Phone: [facility] 06-22-2022 09:15-0400 Body temperature 96.91 [degF] Hailey MEDEIROS-Sudha Work Phone: [facility] 06-22-2022 09:15-0400 Body weight 119.3 kg Hailey Tracie PA-C Work Phone: [facility] 06-22-2022 09:15-0400 Diastolic blood pressure 76 mm[Hg] Hailey Tracie PA-C Work Phone: [facility] 06-22-2022 09:15-0400 Heart rate 78 /min Hailey Kamaili PA-C Work Phone: [facility] 06-22-2022 09:15-0400 SaO2% (BldA) [Mass fraction] 95 % Hailey Kamaili PA-C Work Phone: [facility] 06-22-2022 09:15-0400 Systolic blood pressure 132 mm[Hg] Hailey Kamaili PA-C Work Phone: [facility] 05-04-2022 09:01-0400 Body height 175.3 cm Noemi 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.DIRECTOR D[employer]ITAL STRATEGY Work Phone: [facility] 05-04-2022 09:01-0400 Body weight 117.03 kg Noemi 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.DIRECTOR DIGITAL STRATEGY Work Phone: [facility] 05-04-2022 09:01-0400 Diastolic blood pressure 68 mm[Hg] Noemi 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.DIRECTOR DIGITAL STRATEGY Work Phone: [facility] 05-04-2022 09:01-0400 Heart rate 60 /min Noemi 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.DIRECTOR DIGITAL STRATEGY Work Phone: [facility] 05-04-2022 09:01-0400 Respiratory rate 16 /min Noemi 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.DIRECTOR DIGITAL STRATEGY Work Phone: [facility] 05-04-2022 09:01-0400 Systolic blood pressure 110 mm[Hg] Noemi 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.DIRECTOR DIGITAL STRATEGY Work Phone: [facility] 02-27-2022 14:32-0400 Body height 175.3 cm Vinicius Oliver MD Work Phone: [facility] 02-27-2022 14:32-0400 Body temperature 98.91 [degF] Vinicius Oliver MD Work Phone: [facility] 02-27-2022 14:32-0400 Body weight 122.47 kg Vinicius Oliver MD Work Phone: [facility] 02-27-2022 14:32-0400 Diastolic blood pressure 78 mm[Hg] Vinicius Oliver MD Work Phone: [facility] 02-27-2022 14:32-0400 Heart rate 71 /min Vinicius Oliver MD Work Phone: [facility] 02-27-2022 14:32-0400 SaO2% (BldA) [Mass fraction] 97 % Vinicius Oliver MD Work Phone: [facility] 02-27-2022 14:32-0400 Systolic blood pressure 132 mm[Hg] Vinicius Oliver MD Work Phone: [facility] 02-23-2022 14:52-0400 Body temperature 99.3 [degF] Vinicius Gould APRN.FIFI, DNP Work Phone: [facility] 02-23-2022 14:52-0400 Body weight 120.2 kg Vinicius Gould APRN.DIRECTOR DIGITAL STRATEGY, DNP Work Phone: [facility] 02-23-2022 14:52-0400 Diastolic blood pressure 70 mm[Hg] Vinicius Gould APRN.DIRECTOR DIGITAL STRATEGY, DNP Work Phone: [facility] 02-23-2022 14:52-0400 Heart rate 80 /min Vinicius Gould APRN.DIRECTOR DIGITAL STRATEGY, DNP Work Phone: [facility] 02-23-2022 14:52-0400 Respiratory rate 18 /min Vinicius Gould APRN.DIRECTOR DIGITAL STRATEGY, DNP Work Phone: [facility] 02-23-2022 14:52-0400 SaO2% (BldA) [Mass fraction] 95 % Vinicius Gould APRN.DIRECTOR DIGITAL STRATEGY, DNP Work Phone: [facility] 02-23-2022 14:52-0400 Systolic blood pressure 128 mm[Hg] Vinicius Blaz KOSHER SEALER.DIRECTOR DIGITAL STRATEGY, DNP Work Phone: [facility] Encounters Encounter Date Encounter Type Care Provider Facility Start: 05-21-2025 End: 05-21-2025 ambulatory VINH AGUILAR Facility:[facility] Start: 05-21-2025 Encounter for genera l adult medical examination without abnormal findings VINH AGUILAR [facility] Start: 05-10-2025 End: 05-10-[address] Too Latham DO -[facility] Work Phone: Start: 05-10-2025 End: 05-10-[address] Vinh Aguilar MD Work Phone: -[facility] Start: 05-03-2025 End: 05-03-[address] Too Latham DO -[facility] Work Phone: Start: 05-03-2025 End: 05-03-[address] Vinh Aguilar MD Work Phone: [facility] Start: 04-26-2025 End: 04-26-[address] Too Latham DO -[facility] Work Phone: Start: 04-26-2025 End: 04-26-[address] Vinh Aguilar MD Work Phone: [facility] Start: 04-12-2025 End: 04-12-[address] Doroteo Villanueva MD -[facility] Start: 04-12-2025 End: 04-12-[address] Vinh Aguilar MD Work Phone: -[facility] Comment on above: Refill Request Start: 04-05-2025 End: 04-05-[address] Vinh Aguilar MD Work Phone: -[facility] [place] Start: 04-05-2025 End: 04-05-[address] Mari Prescott MD -[facility] [place] Work Phone: Start: 04-05-2025 End: 04-05-2025 ambulatory Vinh Aguilar Facility:[facility] Start: 04-01-2025 End: 04-01-[address] Vinh Aguilar MD Work Phone: [facility] Work Phone: Start: 04-01-2025 End: 04-01-[address] Too Latham DO -Physical Therapy Work Phone: Start: 03-10-2025 End: 03-10-[address] Too Latham DO -[facility] Work Phone: Start: 03-10-2025 End: 03-10-[address] Vinh Aguilar MD Work Phone: [facility] Work Phone: Start: 03-09-[address] Too harrison DO -Physical Therapy Work Phone: Start: 02-23-2025 ambulatory Too Latham Facility :[facility] Start: 02-23-2025 Non-patient / Non-visit Dr. Too simms DO -[facility] Start: 02-23-2025 End: 02-23-2025 Admission to same day surgery center Dr. Too Latham DO -[facility] Start: 02-23-2025 End: 02-23-[address] Vinh Aguilar MD Work Phone: [facility] Work Phone: Start: 02-11-2025 End: 02-11-[address] Vinh Aguilar MD Work Phone: [facility] Work Phone: Start: 02-11-2025 End: 02-11-[address] Too Latham DO -Cat Scan, [facility] Work Phone: Start: 02-11-2025 End: 02-11-2025 ambulatory Vinh Aguilar Facility:[facility] Start: 02-09-2025 End: 02-09-[address] Vinh Aguilar MD Work Phone: [facility] Work Phone: Start: 02-09-2025 End: 02-09-[address] Mari Prescott MD -[facility], [place] Work Phone: Start: 02-08-2025 End: 02-08-[address] Too Latham DO -[facility] Work Phone: Start: 02-08-2025 End: 02-09-2025 ambulatory Vinh Aguilar Facility:[facility] Start: 02-02-2025 End: 02-02-2025 ambulatory Vinh Aguilar Facility:[facility] Start: 02-02-2025 End: 02-02-[address] Too Latham DO -Physical Therapy Work Phone: Start: 02-02-[address] Too harrison DO -Physical Therapy Work Phone: Start: 01-11-2025 End: 01-11-[address] Too Latham DO -[facility] Work Phone: Start: 01-11-2025 End: 01-11-2025 ambulatory Vinh Aguilar Facility:[facility] Start: 01-05-2025 Encounter for other preprocedural examination Too Latham [facility] Start: 12-29-2024 ambulatory Too Latham Facility :[facility] Start: 12-29-2024 Non-patient / Non-visit Dr. Too simms DO -[facility] Start: 12-29-2024 End: 12-29-2024 Admission to same day surgery center Dr. Too Latham DO -[facility] Start: 12-29-2024 End: 12-29-[address] Vinh Aguilar MD Work Phone: [facility] Work Phone: Start: 12-21-2024 End: 12-21-2024 ambulatory VINH AGUILAR Facility:[facility] Start: 12-21-2024 End: 12-21-2024 Patient encounter procedure Vinh Aguilar MD Work Phone: [facility] Comment on above: Preoperative examina tion (Primary Dx); Essential hypertension; Primary osteoarthritis of both hips; Primary osteoarthritis of both knees; Inflammatory polyarthropathy of multiple sites (HCC) Start: 12-21-2024 End: 12-21-2024 Preprocedural examination done Vinh Aguilar MD Work Phone: [facility] Work Phone: Start: 12-16-2024 End: 12-16-[address] [facility] Start: 12-16-2024 End: 12-16-2024 ambulatory Vinh Aguilar Facility:[facility] Start: 12-11-2024 End: 12-11-[address] Vinh Aguilar MD Work Phone: [facility] Work Phone: Start: 12-11-2024 End: 12-11-[address] Too [facility] Work Phone: Start: 12-11-2024 End: 12-11-2024 ambulatory Vinh Aguilar Facility:[facility] Start: 12-07-2024 End: 12-09-2024 Refill Vinh Aguilar MD Work Phone: [facility] Comment on above: Refill Request Start: 12-01-2024 End: 12-01-2024 Refill Vinh Aguilar MD Work Phone: [facility] Comment on above: Refill Request Start: 11-24-2024 End: 11-24-2024 Telephone encounter Vinh Aguilar MD Work Phone: [facility] Comment on above: Pre-Op Exam Start: 11-13-2024 End: 11-13-2024 Telephone encounter Vinh Aguilar MD Work Phone: [facility] Comment on above: Patient Update Start: 11-11-2024 End: 11-11-[address] Mari Prescott MD -Laboratory, [place] Work Phone: Start: 11-11-2024 End: 11-11-2024 ambulatory Vinh Aguilar Facility:[facility] Start: 11-04-2024 End: 11-04-[address] Too Latham DO -[facility] Work Phone: Start: 11-04-2024 End: 11-04-2024 ambulatory Vinh Aguilar Facility:[facility] Start: 09-15-2024 End: 09-15-[address] Mari Prescott MD -Laboratory, [place] Work Phone: Start: 09-15-2024 End: 09-15-2024 ambulatory Vinh Aguilar Facility:[facility] Start: 08-07-2024 End: 08-07-2024 ambulatory Vinh Aguilar Facility:[facility] Start: 07-27-2024 End: 07-27-2024 ambulatory Vinh Aguilar Facility:[facility] Start: 06-17-2024 End: 06-17-2024 Refill Vinh Aguilar MD Work Phone: [facility] Comment on above: Refill Request Start: 06-08-2024 End: 06-08-2024 Telephone encounter Vinh Aguilar MD Work Phone: [facility] Comment on above: Medication Question Start: 06-05-2024 End: 06-05-2024 ambulatory VINH AGUILAR Facility:[facility] Start: 06-01-2024 End: 06-01-2024 ambulatory Vinh Aguilar Facility:[facility] Start: 05-29-2024 Telephone encounter Vinh hammond MD Work Phone: [facility] Comment on above: Patient Question Start: 05-20-2024 Telephone encounter Vinh hammond MD Work Phone: [facility] Comment on above: Results Start: 05-15-2024 End: 05-15-2024 Patient encounter procedure Vinh Aguilar MD Work Phone: [facility] Comment on above: Routine medical exam (Primary Dx); Essential hypertension; Primary osteoarthritis of both knees; Primary osteoarthritis of both hips; Leg weakness, bilateral; Screening for depression; Encounter for screening examination for other mental health and behavioral disorders; Acrochordon Start: 05-15-2024 End: 05-15-2024 Patient encounter status Vinh Aguilar MD Work Phone: [facility] Work Phone: Start: 05-07-2024 Refill Vinh zapata MD Work Phone: [facility] Comment on above: Refill Request Start: 02-14-2024 Non-patient / Non-visit PA Carlos Rutherford Work Phone: [facility] Start: 02-14-2024 End: 02-14-2024 ambulatory PA Gilda Rutherford Work Phone: [facility] Work Phone: Start: 02-14-2024 End: 02-14-2024 Patient encounter procedure PA Gilda Rutherford Work Phone: [facility], [facility] Work Phone: Start: 02-06-2024 Refill Gilda cutler PA-C Work Phone: Orthopaedics Comment on above: Refill Request Orders Start: 02-03-2024 End: 02-03-2024 Patient encounter procedure Gilda Rutherford PA-C Work Phone: Orthopaedics Comment on above: Primary osteoarthrit is of right hip (Primary Dx); Primary osteoarthritis of both knees Start: 02-01-2024 Telephone encounter Vinh hammond MD Work Phone: [facility] Start: 12-02-2023 End: 12-02-2023 Patient encounter procedure Gilda Rutherford PA-C Work Phone: Orthopaedics Comment on above: Primary osteoarthrit is of both knees (Primary Dx) Start: 11-25-2023 End: 11-25-2023 Patient encounter procedure Gilda Rutherford PA-C Work Phone: Orthopaedics Comment on above: Primary osteoarthrit is of both knees (Primary Dx) Start: 11-20-2023 End: 11-20-2023 Patient encounter procedure Noemi Beltran APRN.DIRECTOR [employer] Work Phone: [facility] Comment on above: Essential hypertensi on (Primary Dx); Gastroesophageal reflux disease without esophagitis; Hypertriglyceridemia; Vitamin D deficiency; Primary osteoarthritis of both knees Start: 05-13-2023 End: 05-13-2023 Patient encounter procedure Vinh Aguilar MD Work Phone: [facility] Comment on above: Routine medical exam (Primary Dx); Gastroesophageal reflux disease without esophagitis; Pain in left hip; Essential hypertension; Hypertriglyceridemia; Obesity, Class III, BMI 40-49.9 (morbid obesity) ([facility]) Start: 05-13-2023 End: 05-13-2023 Patient encounter status Vinh Aguilar MD Work Phone: [facility] Work Phone: Start: 04-22-2023 Refill Vinh zapata MD Work Phone: [facility] Comment on above: Refill Request Start: 03-07-2023 End: 03-07-2023 Patient encounter procedure Satish Rosas MD Work Phone: Orthopaedics Comment on above: Primary osteoarthrit is of both knees (Primary Dx); Gastroesophageal reflux disease, unspecified whether esophagitis present; Primary osteoarthritis of left hip Start: 03-07-2023 End: 03-07-2023 Subsequent hospital visit by physician [facility] Armendariz Work Phone: Radiology Comment on above: Pain in both knees, unspecified chronicity [M25.561, M25.562] Start: 01-14-2023 Refill Vinh zapata MD Work Phone: [facility] Comment on above: Refill Request Start: 11-19-2022 Refill Vinh zapata MD Work Phone: [facility] Comment on above: Refill Request Start: 11-06-2022 Telephone encounter Vinh hammond MD Work Phone: [facility] Comment on above: Patient Question Start: 07-17-2022 Refill Vinh zapata MD Work Phone: [facility] Comment on above: Refill Request Start: 06-22-2022 End: 06-22-2022 Patient encounter procedure Hailey Hodges PA-C Work Phone: General Surgery Comment on above: Polyp of sigmoid col on, unspecified type (Primary Dx); Family history of colon cancer Start: 05-23-2022 Telephone encounter Vinicius wetzel MD Work Phone: General Surgery Comment on above: Medication Problem Start: 05-04-2022 End: 05-04-2022 Patient encounter procedure Noemi 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.[employer]OR [employer] Work Phone: [facility] Comment on above: Wellness examination (Primary Dx); Need for vaccination Start: 05-04-2022 End: 05-04-2022 Patient encounter status Noemi 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.DIRECTOR [employer] Work Phone: [facility] Start: 04-06-2022 Telephone encounter Vinh hammond MD Work Phone: [facility] Comment on above: Results Start: 04-04-2022 Refill Lydia Grayson [facility] Start: 03-30-2022 Telephone encounter Hailey lopez PA-C Work Phone: General Surgery Comment on above: 06/04/2022 COLON ASC Start: 03-17-2022 Refill Vinh zapata MD Work Phone: [facility] Comment on above: Refill Request Start: 02-27-2022 End: 02-27-2022 Patient encounter procedure Vinicius Oliver MD Work Phone: General Surgery Comment on above: Perianal abscess (Pr imary Dx) Start: 02-23-2022 End: 02-23-2022 Office outpatient visit 15 minutes Vinicius Gould APRN.DIRECTOR [employer], DNP Work Phone: [facility] Comment on above: Pilonidal cyst (Prim juan antonio Dx); Obesity, Class II, BMI 35-39.9 Start: 02-23-2022 Telephone encounter Albert (Magali) Aimee mari General Surgery Comment on above: Outpatient [place] [facility] Start: 01-15-2022 Refill Vinh zapata MD Work Phone: [facility] Comment on above: Refill Request Colonoscopy order Start: 12-26-2021 Telephone encounter Vinh hammond MD Work Phone: [facility] Comment on above: Medication Problem Start: 05-05-2021 End: 05-05-2021 Subsequent hospital visit by physician Xr [facility] Work Phone: Radiology Comment on above: Hip pain, acute, lef t [M25.552] Procedures Date Procedure Procedure Detail Performing Clinician Start: 04-12-2025 Plain x-ray of pelvi s and lower extremity Dr. Vinh Aguilar MD Work Phone: Start: 02-23-2025 Plain X-ray of hip Dr. Vinh Aguilar MD Work Phone: Start: 02-23-2025 Total replacement of hip Dr. Vinh Aguilar MD Work Phone: Start: 02-11-2025 MRI of lower extremity Dr. Vinh Aguilar MD Work Phone: Start: 02-08-2025 Plain x-ray of pelvi s and lower extremity Dr. Vinh Aguilar MD Work Phone: Start: 12-29-2024 Plain X-ray of hip Dr. Vinh Aguilar MD Work Phone: Start: 12-29-2024 Total replacement of hip Dr. Vinh Aguilar MD Work Phone: Start: 12-21-2024 Methicillin resistan t Staphylococcus aureus screening test Dr. Vinh Aguilar MD Work Phone: Start: 12-21-[address] Vinh Aguilar MD Work Phone: Comment on above: Published reference interval for apparently healthysubjects between age 20 and 60 is 205 - 285 umol/L and in apoorly controlled diabetic population is 228 - 563 umol/Lwith a mean of 396 umol/L.Performed at: [place] [id number] Director: Jamey Garcia PhD, Phone: [phone] Start: 12-11-2024 MRI of lower extremity Dr. Vinh Aguilar MD Work Phone: Start: 11-11-2024 Measurement of renal function Dr. Vinh Aguilar MD Work Phone: Comment on above: GFR Calc Start: 05-15-2024 Adult depression scr eening assessment Vinh Aguilar MD Work Phone: Start: 05-15-2024 Lipid 1996 panel - S darshana or Plasma Vinh Aguilar MD Work Phone: Start: 02-14-2024 Procedure on extremity PA Gilda Krystletoliban Work Phone: Start: 02-03-2024 Arthrocentesis aspir &/inj major jt/bursa w/o us Gilda Vetovitz PA-C Work Phone: Start: 12-02-2023 Arthrocentesis aspir &/inj major jt/bursa w/o us Gilda Vetovitz PA-C Work Phone: Start: 11-25-2023 Arthrocentesis aspir &/inj major jt/bursa w/o us Gilda Vetovitz PA-C Work Phone: Start: 05-13-2023 Lipid 1996 panel - S darshana or Plasma [facility] Work Phone: Start: 03-07-2023 Radiologic exam knee complete 4/more views Satish Rosas MD Work Phone: Start: 06-04-2022 Colonoscopy Hailey lopez PA-C Work Phone: Start: 05-04-2022 Adult depression scr eening assessment Noemi 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.DIRECTOR [employer] Work Phone: Start: 05-05-2021 Radex hip unilateral with pelvis 2-3 views Wendy Johnson K[employer]HER SEALER.DIRECTOR [employer] Work Phone: Start: 09-20-2017 Adult depression scr eening assessment Vinh Aguilar MD Work Phone: Start: 07-06-2016 Colonoscopy Vinh Lira MD Work Phone: Plan of Treatment Date Care Activity Detail Author Start: 05-04-2032 Urine microalbumin profile [facility] Start: 05-15-2029 Lipid panel Lipid Screening [facility] Start: 05-13-2028 Lipid 1996 panel - Serum or Plasma Lipid Screening [facility] Start: 05-13-2028 Lipid panel Lipid Screening [facility] Start: 05-13-2028 LIPID SCREEN LIPID SCREEN [facility] Start: 12-22-2027 Diabetes Screening Diabetes Screening [facility] Start: 06-04-2027 Colonoscopy COLONOSCOPY [facility] Start: 06-04-2027 COLORECTAL CANCER SCREENING COLORECTAL CANCER SCREENING [facility] Start: 06-04-2027 Screening for malignant neoplasm of colon [facility] Start: 05-15-2027 Diabetes Screening Diabetes Screening [facility] Start: 03-30-2027 LIPID SCREEN LIPID SCREEN [facility] Start: 03-30-2027 PROSTATE CANCER SCREENING DISCUSSION PROSTATE CANCER SCREENING DISCUSSION [facility] Start: 03-30-2027 Prostate specific antigen measurement Prostate Cancer Screening Discussion [facility] Start: 05-26-2026 LIPID SCREEN LIPID SCREEN [facility] Start: 05-13-2026 DIABETES SCREEN DIABETES SCREEN [facility] Start: 05-13-2026 Diabetes Screening Diabetes Screening [facility] Start: 12-21-2025 Annual PCP Team Chronic Disease Visit Annual PCP Team Chronic Disease Visit [facility] Start: 12-21-2025 BP Controlled (<130/80) BP Controlled (<130/80) [facility] Start: 12-21-2025 Covid-19 Vaccine (3 - Moderna risk series) Covid-19 Vaccine (3 - Moderna risk series) [facility] Comment on above: Postponed from 03/28/2021 (Declined at t his time) Start: 05-21-2025 End: 05-21-2025 Patient encounter procedure 05/21/2025 8:00 AM EDT Office Visit [facility] [address] [place] [address] Vinh Aguilar MD [address] [place] [address] Yearly [facility] Comment on above: Yearly Start: 05-15-2025 Annual PCP Team Chronic Disease Visit Annual PCP Team Chronic Disease Visit [facility] Start: 05-15-2025 Anxiety Screening Anxiety Screening [facility] Start: 05-15-2025 BP Controlled (<130/80) BP Controlled (<130/80) [facility] Start: 05-15-2025 Depression Screening Depression Screening [facility] Start: 04-12-2025 Plain x-ray of pelvis and lower extremity HIP, UNI W/ Pelvis 2-3 Views [facility] Start: 04-12-2025 XR Pelvis and Hip Views [facility] Start: 03-30-2025 DIABETES SCREEN DIABETES SCREEN [facility] Start: 02-23-2025 Anesthesia open total hip arthroplasty ANESTH HIP ARTHROPLASTY [facility] Start: 02-23-2025 Arthrp acetblr/prox fem prostc agrft/algrft TOTAL HIP ARTHROPLASTY [facility] Start: 02-23-2025 Plain X-ray of hip Hip Min 2 Views (Portable) [facility] Start: 02-23-2025 XR Hip GE 2 Views [facility] Start: 02-23-2025 Application of ice collar, cap or bag [facility] Start: 02-23-2025 Exercises [facility] Start: 02-23-2025 Incentive spirometry [facility] Start: 02-23-2025 Neurovascular assessment [facility] Start: 02-23-2025 Patient discharge [facility] Start: 02-23-2025 Patient education [facility] Start: 02-23-2025 Provision of activity privileges [facility] Start: 02-23-2025 Recommendation to continue with treatment [facility] Start: 02-23-2025 Referral to service [facility] Start: 02-23-2025 Vital signs measurements [facility] Start: 02-23-2025 Wound care [facility] Start: 02-23-2025 [facility] Start: 02-08-2025 Patient referral [facility] Work Phone: Start: 12-29-2024 Anesthesia open total hip arthroplasty ANESTH HIP ARTHROPLASTY [facility] Start: 12-29-2024 Arthrp acetblr/prox fem prostc agrft/algrft TOTAL HIP ARTHROPLASTY [facility] Start: 12-29-2024 Application of ice collar, cap or bag [facility] Start: 12-29-2024 Exercises [facility] Start: 12-29-2024 Incentive spirometry [facility] Start: 12-29-2024 Neurovascular assessment [facility] Start: 12-29-2024 Patient discharge [facility] Start: 12-29-2024 Patient education [facility] Start: 12-29-2024 Provision of activity privileges [facility] Start: 12-29-2024 Recommendation to continue with treatment [facility] Start: 12-29-2024 Referral to service [facility] Start: 12-29-2024 Vital signs measurements [facility] Start: 12-29-2024 Wound care [facility] Start: 12-29-2024 [facility] Start: 12-21-2024 End: 12-21-2024 Patient encounter procedure 12/21/2024 5:20 PM EDT Office Visit [facility] [address] [place] [address] Vinh Aguilar MD [address] [place] [address] Pre Op - 12/29/24 [facility] Comment on above: Pre Op - 12/29/24 [facility] Start: 11-20-2024 Annual PCP Team Chronic Disease Visit Annual PCP Team Chronic Disease Visit [facility] Start: 11-20-2024 BP Controlled (<130/80) BP Controlled (<130/80) [facility] Start: 11-20-2024 Covid-19 Vaccine ( season) Covid-19 Vaccine () [facility] Comment on above: Postponed from 06/14/2023 (Declined at t his time) Start: 11-18-2024 End: 11-18-2024 Patient encounter procedure 11/18/2024 4:20 PM EST Office Visit [facility] [address] [place], [place] [id number] Noemi Beltran, KOSHER SEALER.DIRECTOR [employer]ATEGY [address] [place] [address] 6 month follow up [facility] Comment on above: 6 month follow up Start: 08-03-2024 End: 08-03-2024 Patient encounter procedure 08/03/2024 9:00 AM EDT Office Visit Orthopaedics [address] [place] [address] Gilda Rutherford PA-C [address], [place] [id number] BRIGITTE KNEE PAIN F/U REQ INJECTIONS [facility] Comment on above: BRIGITTE KNEE PAIN F/U REQ INJECTIONS [facility] Start: 07-01-2024 DIABETES SCREEN DIABETES SCREEN [facility] Start: 06-14-2024 Covid-19 Vaccine () Covid-19 Vaccine () [facility] Start: 06-14-2024 Covid-19 Vaccine () Covid-19 Vaccine () [facility] Start: 06-14-2024 Influenza vaccination Influenza Vaccine (#1) [facility] Start: 06-04-2024 End: 09-03-2024 Ferritin [Mass/volume] in Serum or Plasma FERRITIN Lab Routine Elevated ferritin Expected: 06/04/2024, Expires: 09/03/2024 [facility] Work Phone: Comment on above: Expected: 06/04/2024, Expires: Start: 06-04-2024 End: 09-03-2024 Iron and Iron binding capacity panel - Serum or Plasma IRON AND TIBC Lab Routine Elevated ferritin Expected: 06/04/2024, Expires: 09/03/2024 [facility] Comment on above: Expected: 06/04/2024, Expires: 4 Start: 05-15-2024 End: 08-14-2024 Aldolase [Enzymatic activity/volume] in Serum or Plasma [facility] Comment on above: Expected: 05/15/2024, Expires: Start: 05-15-2024 End: 08-14-2024 C reactive protein [Mass/volume] in Serum or Plasma [facility] Comment on above: Expected: 05/15/2024, Expires: Start: 05-15-2024 End: 08-14-2024 Creatine kinase [Enzymatic activity/volume] in Serum or Plasma [facility] Comment on above: Expected: 05/15/2024, Expires: Start: 05-15-2024 End: 08-14-2024 Erythrocyte sedimentation rate [facility] Work Phone: Comment on above: Expected: 05/15/2024, Expires: Start: 05-15-2024 End: 08-14-2024 Ferritin [Mass/volume] in Serum or Plasma [facility] Comment on above: Expected: 05/15/2024, Expires: Start: 05-15-2024 End: 08-14-2024 Rheumatoid factor [Units/volume] in Serum or Plasma [facility] Comment on above: Expected: 05/15/2024, Expires: Start: 05-15-2024 End: 05-15-2024 Patient encounter procedure 05/15/2024 8:00 AM EDT Office Visit [facility] [address] [place] [address] Vinh Aguilar MD [address] [place] [address] Yearly [facility] Comment on above: Yearly Start: 05-14-2024 End: 08-13-2024 25-hydroxyvitamin D3 [Mass/volume] in Serum or Plasma VITAMIN D 25 HYDROXY Lab Routine Vitamin D deficiency Expected: 05/14/2024 (Approximate), Expires: 08/13/2024 [facility] Work Phone: Comment on above: Expected: 05/14/2024 (Approximate), Expi res: 08/13/2024 Start: 05-14-2024 End: 08-13-2024 CBC panel - Blood by Automated count CBC Lab Routine Essential hypertension Expected: 05/14/2024 (Approximate), Expires: 08/13/2024 [facility] Work Phone: Comment on above: Expected: 05/14/2024 (Approximate), Expi res: 08/13/2024 Start: 05-14-2024 End: 08-13-2024 Comprehensive metabolic 2000 panel - Serum or Plasma COMP METABOLIC PANEL Lab Routine Essential hypertension Expected: 05/14/2024 (Approximate), Expires: 08/13/2024 [facility] Work Phone: Comment on above: Expected: 05/14/2024 (Approximate), Expi res: 08/13/2024 Start: 05-14-2024 End: 08-13-2024 Lipid 1996 panel - Serum or Plasma LIPID PANEL BASIC Lab Routine Hypertriglyceridemia Expected: 05/14/2024 (Approximate), Expires: 08/13/2024 [facility] Work Phone: Comment on above: Expected: 05/14/2024 (Approximate), Expi res: 08/13/2024 Start: 05-13-2024 ANNUAL PCP TEAM CHRONIC DISEASE VISIT ANNUAL PCP TEAM CHRONIC DISEASE VISIT [facility] Start: 05-13-2024 COVID-19 VACCINE (3 - Moderna series) COVID-19 VACCINE (3 - Moderna series) [facility] Comment on above: Postponed from 04/25/2021 (Declined at t his time) Start: 05-13-2024 Influenza vaccination LUNG CANCER SCREENING [facility] Comment on above: Postponed from 2015 (Declined at t his time) Start: 05-13-2024 Screening for malignant neoplasm of lung Lung Cancer Screening [facility] Comment on above: Postponed from 2015 (Declined at t his time) Start: 10-14-2023 Behavioral Health Screening Behavioral Health Screening [facility] Start: 10-14-2023 Depression Assessment Depression Assessment [facility] Start: 06-14-2023 Covid-19 Vaccine () Covid-19 Vaccine () [facility] Start: 06-14-2023 Influenza vaccination [facility] Start: 05-04-2023 Adult depression screening assessment DEPRESSION SCREENING [facility] Start: 05-04-2023 ANNUAL PCP TEAM CHRONIC DISEASE VISIT ANNUAL PCP TEAM CHRONIC DISEASE VISIT [facility] Start: 05-04-2023 BP CONTROLLED (<130/80) BP CONTROLLED (<130/80) [facility] Start: 05-04-2023 COVID-19 VACCINE (3 - Booster for Moderna series) COVID-19 VACCINE (3 - Booster for Moderna series) [facility] Comment on above: Postponed from 07/31/2021 (Declined at t his time) Postponed from 04/25 (Declined at this time) Start: 05-04-2023 COVID-19 VACCINE (3 - Moderna series) COVID-19 VACCINE (3 - Moderna series) [facility] Comment on above: Postponed from 04/25/2021 (Declined at t his time) Start: 05-04-2023 Influenza vaccination LUNG CANCER SCREENING [facility] Comment on above: Postponed from 2015 (Declined at t his time) Start: 04-13-2023 End: 06-13-2023 25-hydroxyvitamin D3 [Mass/volume] in Serum or Plasma VITAMIN D 25 HYDROXY Lab Routine Vitamin D deficiency Expected: 04/13/2023 (Approximate), Expires: 06/13/2023 [facility] Work Phone: Comment on above: Expected: 04/13/2023 (Approximate), Expi res: 06/13/2023 Start: 04-13-2023 End: 06-13-2023 CBC panel - Blood by Automated count CBC Lab Routine Essential hypertension Expected: 04/13/2023 (Approximate), Expires: 06/13/2023 [facility] Work Phone: Comment on above: Expected: 04/13/2023 (Approximate), Expi res: 06/13/2023 Start: 04-13-2023 End: 06-13-2023 Comprehensive metabolic 2000 panel - Serum or Plasma COMP METABOLIC PANEL Lab Routine Essential hypertension Expected: 04/13/2023 (Approximate), Expires: 06/13/2023 [facility] Work Phone: Comment on above: Expected: 04/13/2023 (Approximate), Expi res: 06/13/2023 Start: 04-13-2023 End: 06-13-2023 Lipid 1996 panel - Serum or Plasma LIPID PANEL BASIC Lab Routine Hypertriglyceridemia Expected: 04/13/2023 (Approximate), Expires: 06/13/2023 [facility] Work Phone: Comment on above: Expected: 04/13/2023 (Approximate), Expi res: 06/13/2023 Start: 04-13-2023 End: 06-13-2023 PSA/PROSTSPECAG SCRN PSA/PROSTSPECAG SCRN Lab Routine Screening for prostate cancer Expected: 04/13/2023 (Approximate), Expires: 06/13/2023 [facility] Work Phone: Comment on above: Expected: 04/13/2023 (Approximate), Expi res: 06/13/2023 Start: 02-23-2023 ANNUAL PCP TEAM CHRONIC DISEASE VISIT ANNUAL PCP TEAM CHRONIC DISEASE VISIT [facility] Start: 02-23-2023 BP CONTROLLED (<130/80) BP CONTROLLED (<130/80) [facility] Start: 11-29-2022 ANNUAL PCP TEAM CHRONIC DISEASE VISIT ANNUAL PCP TEAM CHRONIC DISEASE VISIT [facility] Start: 11-29-2022 BP CONTROLLED (<130/80) BP CONTROLLED (<130/80) [facility] Start: 10-14-2022 DEPRESSION ASSESSMENT DEPRESSION ASSESSMENT [facility] Start: 06-14-2022 Influenza vaccination INFLUENZA (#1) [facility] Start: 10-14-2021 DEPRESSION ASSESSMENT DEPRESSION ASSESSMENT [facility] Start: 10-06-2021 PROSTATE CANCER SCREENING DISCUSSION PROSTATE CANCER SCREENING DISCUSSION [facility] Start: 07-31-2021 COVID-19 VACCINE (3 - Booster for Moderna series) COVID-19 VACCINE (3 - Booster for Moderna series) [facility] Start: 07-06-2021 Colonoscopy COLONOSCOPY [facility] Start: 07-06-2021 COLORECTAL CANCER SCREENING COLORECTAL CANCER SCREENING [facility] Start: 05-04-2021 Urine microalbumin profile DTAP,TDAP,TD (2 - Td or Tdap) [facility] Start: 2020 Influenza vaccination LUNG CANCER SCREENING [facility] Start: 09-20-2018 Adult depression screening assessment DEPRESSION SCREENING [facility] Start: 2015 Influenza vaccination LUNG CANCER SCREENING [facility] Start: 2015 Pneumococcal Vaccine: 50+ (1 of 1 - PCV) Pneumococcal Vaccine: 50+ (1 of 1 - PCV) [facility] Start: 2010 COLOGUARD (FIT-DNA) COLOGUARD (FIT-DNA) [facility] Start: [address] COLONOGRAPHY [facility] Start: 2010 FECAL OCCULT BLOOD FECAL OCCULT BLOOD [facility] Start: 2010 Screening for malignant neoplasm of colon [facility] Start: 2010 SIGMOIDOSCOPY SIGMOIDOSCOPY [facility] Start: 1984 Pneumococcal Vaccine: 50+ (1 of 2 - PCV) Pneumococcal Vaccine: 50+ (1 of 2 - PCV) [facility] Start: 1983 Anxiety Screening Anxiety Screening [facility] Start: 1983 BP CONTROLLED (<130/80) BP CONTROLLED (<130/80) [facility] Start: 1983 Depression Screening Depression Screening [facility] Start: 1965 HEPATITIS B (1 of 3 - 3-dose series) HEPATITIS B (1 of 3 - 3-dose series) [facility] Electrocardiographic procedure [facility] End: 03-04-2025 Guidance for injection of Hip IMAGING GUIDED ILIOPSOAS BURSA INJECTION RIGHT Radiology Routine Primary osteoarthritis of right hip 1 Occurrences starting 02/03/2024 until 03/04/2025 [facility] Work Phone: Comment on above: 1 Occurrences starting 02/03/2024 until 03/04/2025 End: 03-07-2025 Guidance for injection of Hip IMAGING GUIDED HIP INJECTION RIGHT Radiology Routine Primary osteoarthritis of right hip 1 Occurrences starting 02/06/2024 until 03/07/2025 [facility] Work Phone: Comment on above: 1 Occurrences starting 02/06/2024 until 03/07/2025 Patient referral [facility] Work Phone: End: 01-15-2023 Screening colonoscopy COLONOSCOPY SCREENING Endoscopy Routine Special screening for malignant neoplasms, colon 1 Occurrences starting 01/15/2022 until 01/15/2023 [facility] Work Phone: Comment on above: 1 Occurrences starting 01/15/2022 until 01/15/2023 [facility] Immunizations Immunization Date Immunization Notes Care Provider [facility] 07-28-2024 influenza virus vaccine, unspecified formulation Vnih Aguilar MD Work Phone: [facility] 07-30-2023 influenza, seasonal, injectable Noemi Beltran [employer]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 [employer] Work Phone: [facility] Work Phone: 07-30-2023 influenza virus vaccine, unspecified formulation Vinh Aguilar MD Work Phone: [facility] 05-04-2022 tetanus and diphther ia toxoids, adsorbed, preservative free, for adult use (2 Lf of tetanus toxoid and 2 Lf of diphtheria toxoid) Noemi Fung [employer]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 Work Phone: [facility] 07-28-2021 influenza, injectabl e, quadrivalent, contains preservative Vinh Aguilar MD Work Phone: [facility] Work Phone: 07-28-2021 influenza virus vaccine, unspecified formulation [employer] Work Phone: [facility] 04-18-2021 zoster vaccine recombinant Vinh Aguilar MD Work Phone: [facility] 09-22-2020 zoster vaccine recombinant Vinh Aguilar MD Work Phone: [facility] 08-15-2016 influenza, injectabl e, quadrivalent, contains preservative Vinh Aguilar MD Work Phone: [facility] Work Phone: 07-14-2015 influenza virus vaccine, unspecified formulation Vinh Aguilar MD Work Phone: [facility] Work Phone: 05-04-2011 tetanus toxoid, reduced diphtheria toxoid, and acellular pertussis vaccine, adsorbed Vinh Aguilar MD Work Phone: [facility] Work Phone: Payers Date Payer Category Payer Self-pay [id number] [facility] .[id number] 2023 Unknown [id number] 2015 Unknown MMO MMO MHS [id number] 2015-Present [phone] [address] [address] [place] [address] Indemnity [id number] 2015 Unknown [id number]. [id number] Unknown BC ANTHEM 332 COMM CHOICE YR [id number] Unknown [employer] [place]/ PRO CLAIMS [id number] Unknown [employer] TPA [id number] Unknown [id number] 2.16.840.1.931983.3.579.2. 462 Unknown [id number] 2.16840.1.639934.3.579.2. 462 Unknown [id number] 2.16840.1.471646.3.579.2. 462 Unknown [id number] 2.16.840.1.500245.3.579.2. 462 Unknown [id number] 2.16.840.1.374156.3.579.2. 462 Unknown [id number] 2.16.840.1.840632.3.579.2. 462 Unknown [id number] 2.16.840.1.178015.3.579.2. 462 Unknown [id number] 2.16.840.1.892873.3.579.2. 462 Unknown [id number] 2.16.840.1.560178.3.579.2. 462 Unknown [id number] 2.16.840.1.053283.3.579.2. 462 Unknown [id number] 2.16.840.1.795340.3.579.2. 462 Unknown [id number] 2.16.840.1.433527.3.579.2. 462 Unknown [id number] 2.16.840.1.258021.3.579.2. 462 Unknown [id number] 2.16.840.1.667015.3.579.2. 462 Unknown [id number] 2.16.840.1.495517.3.579.2. 462 Unknown [id number] 2.16.840.1.818009.3.579.2. 462 Unknown [id number] 2.16.840.1.472137.3.579.2. 462 Unknown [id number] 2.16.840.1.864934.3.579.2. 462 Unknown [id number] 2.16.840.1.498261.3.579.2. 462 Unknown [id number] 2.16.840.1.364491.3.579.2. 462 Unknown [id number] 2.16.840.1.465497.3.579.2. 462 Unknown [id number] 2.16.840.1.004017.3.579.2. 462 Unknown [id number] 2.16.840.1.896530.3.579.2. 462 Unknown [id number] 2.16.840.1.678272.3.579.2. 462 Unknown [id number] 2.16.840.1.147916.3.579.2. 462 Unknown [id number] 2.16.840.1.498885.3.579.2. 462 Unknown [id number] 2.16840.1.462545.3.579.2. 462 Social History Date Type Detail Facility Start: 05-04-2022 End: 02-10-2025 Tobacco smoking status NHIS Ex-smoker [facility] Work Phone: Start: 05-14-1979 End: 05-14-2009 History of tobacco use Current smoker [facility] Work Phone: Start: 11-30-2021 End: 12-22-2024 Alcohol intake Current drinker of alcohol (finding) [facility] Start: 08-23-2020 History SDOH Alcohol Frequency 3 [facility] Start: 08-23-2020 End: 09-22-2020 History SDOH Alcohol Std Drinks 1 [facility] Start: 08-23-2020 End: 09-22-2020 History SDOH Social Connections Get Together 2 [facility] Start: 08-23-2020 History SDOH Financial 5 [facility] Start: 08-23-2020 Education 12 [facility] Start: 1965 Sex Assigned At Not on file [facility] Start: 04-05-2021 End: 06-22-2022 Exposure to SARS-CoV-2 (event) Not sure [facility] Start: 05-14-1979 End: 05-14-2009 History of tobacco use Cigarette Smoker [facility] Work Phone: Start: 05-04-2022 End: 03-07-2023 Cigarettes smoked current (pack per day) - Reported 1 [facility] Start: 05-04-2022 End: 12-21-2024 Tobacco use and exposure Smokeless tobacco non-user [facility] Work Phone: Start: 06-04-2022 Tobacco Comment states smokes cigar occasionally [facility] Start: 09-22-2020 End: 03-07-2023 Tobacco use panel [facility] Adult Depression Screening Assessment 0 [facility] Do you belong to any clubs or organizations such as alevism groups, unions, fraternal or athletic groups, or school groups? No [facility] Are you now , , , , never or living with a partner? [facility] How often to you hav e a drink containing alcohol? 2-4 times a month [facility] How many standard dr inks containing alcohol do you have on a typical day? 1 or 2 [facility] How often do you hav e 6 or more drinks on 1 occasion? Never [facility] Do you feel stress - tense, restless, nervous, or anxious, or unable to sleep at night because your mind is troubled all the time - these days [OSQ] Not at all [facility] (I/We) worried harley er (my/our) food would run out before (I/we) got money to buy more. Never true [facility] Start: 10-28-2023 Alcohol Comment 6 beers a week [facility] Start: 12-13-2019 Tobacco smoking status NHIS Unknown if ever smoked [facility] Start: 1965 Sex Assigned At Male [facility] Start: 12-25-2024 End: 12-29-2024 Sex Male (finding) [facility] Medical Equipment Procedure Code Equipment Code Equipment Origin al Text Equipment Identifier Dates Arthroplasty, hip, total, using robot-assisted navigation ([id number]) Ceramic femoral head prosthesis ()[id number] FDA Start: 12-29-2024 Arthroplasty, hip, total, using robot-assisted navigation ([id number]) Coated hip femur prosthesis, modular ()[id number] FDA Start: 12-29-2024 Arthroplasty, hip, total, using robot-assisted navigation ([id number]) Non-constrained polyethylene acetabular liner ()[id number] FDA Start: 12-29-2024 Arthroplasty, hip, total, using robot-assisted navigation ([id number]) Acetabular shell ()[id number] FDA Start: 12-29-2024 Arthroplasty, hip, total, using robot-assisted navigation ([id number]) Orthopaedic bone screw, non-bioabsorbable, sterile ()[id number] FDA Start: 12-29-2024 Arthroplasty, hip, total, using robot-assisted navigation ([id number]) Ceramic femoral head prosthesis ()[id number] FDA Start: 02-23-2025 Arthroplasty, hip, total, using robot-assisted navigation ([id number]) Coated hip femur prosthesis, modular ()[id number] FDA Start: 02-23-2025 Arthroplasty, hip, total, using robot-assisted navigation ([id number]) Non-constrained polyethylene acetabular liner ()[id number] FDA Start: 02-23-2025 Arthroplasty, hip, total, using robot-assisted navigation ([id number]) Acetabular shell ()[id number] FDA Start: 02-23-2025 Arthroplasty, hip, total, using robot-assisted navigation ([id number]) Orthopaedic bone screw, non-bioabsorbable, sterile ()[id number] [id number] FDA Start: 02-23-2025 Goals Date Patient Goal Desired Activity /State Functional Status Date Assessment Result Facility 12-29-2024 Functional status Ambulates;Bath room Privilege [facility] Work Phone: 12-21-2024 Total score [AUDIT-C] 2 12/22/19 25 6:08 PM EDT Vinh Aguilar MD [facility] 05-17-2014 Are you deaf, or do you have serious difficulty hearing No 05/17/2014 3:19 PM EDT Dinora Carlson MA No [facility] 05-17-2014 Are you blind, or do you have serious difficulty seeing, even when wearing glasses No 05/17/2014 3:19 PM Dinora Brunner MA No [facility] 05-17-2014 Do you have serious difficulty walking or climbing stairs Yes 05/17/2014 3:19 PM EDT Dinora Carlson MA Yes [facility] 05-17-2014 Do you have difficul ty dressing or bathing No 05/17/2014 3:19 PM EDT Dinora Carlson MA No [facility] 05-17-2014 Because of a physica l, mental, or emotional condition, do you have difficulty doing errands alone such as visiting a physician's office or shopping No 05/17/2014 3:19 PM [place]T Dinora Carlson MA No [facility] Mental Status Date Assessment Result Facility 02-23-2025 Cognitive function Level Of Cons ciousness Awake;Alert [facility] Work Phone: 02-23-2025 Cognitive function Voice/Name [facility] Work Phone: 12-29-2024 Cognitive function Voice/Name [facility] Work Phone: 05-17-2014 Because of a physica l, mental, or emotional condition, do you have serious difficulty concentrating, remembering, or making decisions No 05/17/2014 3:19 PM EDT Dinora Carlson MA No [facility] Clinical Notes 05-17-2014 to 05-21-2025 Note Date & Type Note Facility 05-21-2025 Note HNO ID: [id number] Author: VINH AGUILAR MD Service: ? Author Type: Physician Type: Progress Notes Filed: 05/21/2025 09:10 Note Text: Subjective Miles Turner is a 59 year old male. Patient presents with: Yearly Exam Miles was doing well. He had left total hip, and then right total hip replacements by Dr. Latham which went well. He completed physical therapy. He will resume work next week. His hypertension was controlled. Lipids needed updating. PAST MEDICAL HISTORY Diagnosis Date ALLERGIC RHINITIS NEC Elevated ferritin 05/21/2024 Essential hypertension 11/24/2007 Gastroesophageal reflux disease without esophagitis 05/30/2018 History of compression fracture of spine 05/26/2021 History of tobacco use 30 pack years Hydronephrosis 01/08/2018 mild left Hypertriglyceridemia 06/21/2015 Inflammatory polyarthropathy of multiple sites (HCC) 06/26/2024 Internal hemorrhoids without mention of complication Kidney stone 01/08/2018 left Obesity, Class III, BMI 40-49.9 (morbid obesity) (HCC) 06/21/2015 Primary osteoarthritis of both hips 05/26/2021 Primary osteoarthritis of both knees 03/30/2014 Snoring Thyroid nodule 06/09/2019 Vitamin D deficiency 07/12/2021 PAST SURGICAL HISTORY Procedure Laterality Date COLONOSCOPY FLX DX W/COLLJ SPEC WHEN PFRMD 07/30/2011 repeat due 2015 (FHx) COLONOSCOPY FLX DX W/COLLJ SPEC WHEN PFRMD 07/06/2016 normal - 5 year follow up for family history COLONOSCOPY SCREENING 06/04/2022 . benign polyp, repeat in 5 years based on family history IMAGING GUIDED HIP INJECTION RIGHT 02/14/2024 THYROID BIOPSY US 06/19/2019 TOTAL HIP REPLACEMENT Left 12/29/2024 TOTAL HIP REPLACEMENT Right 02/23/2025 VASECTOMY UNI/BI SPX W/POSTOP SEMEN EXAMS FAMILY HISTORY Problem Relation Age of Onset Heart Mother Cancer Father colon - ? - age 70 Heart Father No Known Problems Sister No Known Problems Brother Colon Cancer Paternal Uncle Social History Tobacco Use Smoking status: Former Current packs/day: 0.00 Average packs/day: 1 pack/day for 30.0 years (30.0 ttl pk-yrs) Types: Cigarettes Start date: 05/14/1979 Quit date: 05/14/2009 Years since quittin.0 Smokeless tobacco: Never Tobacco comments: states smokes cigar occasionally Vaping Use Vaping status: Never Used Substance Use Topics Alcohol use: Yes Alcohol/week: 1.0 standard drink of alcohol Types: 1 Cans of beer per week Drug use: No ALLERGIES No Known Allergies Current Outpatient Medications Medication Sig Valsartan-hydroCHLOROthiazide 320-25 mg per tablet Take 1 tablet by mouth once daily. omeprazole (PRILOSEC) 40 mg capsule Take 1 capsule by mouth once daily. etodolac (LODINE) 400 mg tablet Take 1 tablet by mouth two times a day. gemfibrozil (LOPID) 600 mg tablet Take 1 tablet by mouth two times a day. methotrexate 2.5 mg tablet take 8 tablets by mouth every week predniSONE (DELTASONE) 5 mg tablet Take 5 mg by mouth every morning. traMADol (ULTRAM) 50 mg tablet Take 50 mg by mouth every 8 hours as needed. mv-min/folic/K1/lycopen/lutein (MEN 50 PLUS MULTIVITAMIN ORAL) Take 1 tablet by mouth once daily. cholecalciferol, vitamin D3, (VITAMIN D3 ORAL) Take 5,000 Units by mouth once daily. acetaminophen (TYLENOL) 500 mg tablet Take 1 tablet by mouth every 6 hours as needed for Pain. Coral-3 Fatty Acids (FISH OIL) 500 mg cap Take 500 mg by mouth once daily. No current facility-administered medications for this visit. Review of Systems Constitutional: Negative for fatigue and fever. HENT: Negative for congestion. Eyes: Negative for visual disturbance. Respiratory: Negative for cough and shortness of breath. Cardiovascular: Negative for chest pain, palpitations and leg swelling. Gastrointestinal: Negative for abdominal pain, constipation and diarrhea. Genitourinary: Negative for difficulty urinating and dysuria. Musculoskeletal: Negative for arthralgias and gait problem. Neurological: Negative for dizziness, numbness and headaches. Psychiatric/Behavioral: Negative. Objective BP 126/73 Pulse 69 Resp 16 Ht 175.3 cm (5' 9) Wt 126.5 kg (278 lb 14.1 oz) SpO2 97% BMI 41.18 kg/m? Physical Exam Constitutional: Appearance: He is not ill-appearing. HENT: Head: Normocephalic. Nose: No congestion. Eyes: General: No scleral icterus. Conjunctiva/sclera: Conjunctivae normal. Cardiovascular: Rate and Rhythm: Normal rate and regular rhythm. Pulses: Normal pulses. Heart sounds: No murmur heard. No gallop. Pulmonary: Breath sounds: Normal breath sounds. Abdominal: Palpations: Abdomen is soft. Tenderness: There is no abdominal tenderness. Musculoskeletal: Right lower leg: No edema. Left lower leg: No edema. Lymphadenopathy: Cervical: No cervical adenopathy. Neurological: General: No focal deficit present. Mental Status: He is alert. Gait: Gait normal. Psychiatric: Mood and Affec (more content not included)... [facility] 05-10-2025 Progress note [facility] 05-10-2025 Progress note Note Date/Time May 10, 2025 9:27am [facility] [place] [address] OFFICE VISIT Date of Service: 05/10/25 MR#: [id number] Acct: [id number] Name: MILES TURNER Rep #: [id number] : 1965 Provider: Dr. Marcus Latham DO Age/Sex: 59/M Location[place] [facility] [place] Status: Signed Intake Vital Signs 04/26/25 08:25 05/03/25 08:37 05/10/25 09:04 Height 5 ft 9 in 5 ft 9 in 5 ft 9 in Weight: 270 lb 270 lb 272 lb BMI 39.9 39.9 40.1 Intake Visit Reasons: BL KNEE Chief Complaint: Bilateral knee 3rd euflexxa injection Accompanied by: Self Is patient in pain?: Yes Pain scale (1-10): 3 Allergies No Known Allergies Allergy (Verified 05/10/25 09:05) Medications ?Medication ?Instructions ?Recorded ?Confirmed ?Type gemfibrozil 600 mg tablet 600 mg PO BIDAC 03/28/18 07/ 28/25 History omeprazole 40 mg capsule,delayed 40 mg PO QDAY 4 05/10/25 History release valsartan 320 1 tab PO QDAY 07/27/2405/10 History mg-hydrochlorothiazide 25 mg tablet etodolac 400 mg tablet 400 mg PO BID 02/08/2505/10 History Held on 02/23/25. Instructions: May resume after completion of blood thinner if needed folic acid 1 mg tablet 1 mg PO BID 02/08/25 5 History methotrexate sodium 15 mg tablet 25 mg PO QWEEK 05/10/25 History Held on 02/23/25. Instructions: Resume on 03/16/25. acetaminophen 650 mg 1,300 mg PO Q12H PRN pain 05/10/25 History tablet,extended release (8 Hour Pain Reliever) Held on 02/23/25. Instructions: Duplicate cholecalciferol (vitamin D3) 25 25 mcg PO DAILY 05/10/25 History mcg (1,000 unit) tablet (Vitamin D3) omega 6-rry-uge-fish oil 1,200 mg 1 cap PO DAILY 02/1005/10/25 History (144 mg-216 mg) capsule (Fish Oil) acetaminophen 500 mg tablet 1,000 mg (2 x 500 mg) PO Q 6H #90 02/23/25 05/10/25 Rx tabs apixaban 2.5 mg tablet (Eliquis) 2.5 mg PO BID #42 tab s 02/23/25 05/10/25 Rx cephalexin 500 mg capsule 1,000 mg (2 x 500 mg) PO Q8H #4 02/23/25 05/10/25 Rx caps Have you fallen in the past year?: No PFSH Medical History Shortness of breath on exertion Hypertension Wears glasses Colonoscopy planned Gastric reflux History of stress test Former smoker Surgical History History of total right hip replacement History of total left hip replacement Family History Mother Heart disease Diabetes Father Heart disease Social History household members: spouse Smoking Status: Former smoker alcohol intake: current alcohol intake frequency: holidays/special occasions only HPI BL KNEE Details: This documentation accurately reflects the service provided and the decisions made by me, Dr. Too Latham, DO 05/10/25 0754. Part of today?s visit was documented by Julisa Delarosa MA, acting as scribe. MILES TURNER is a 59 year old M here today for third Euflexxa injection bilateral knee Ortho Exam General General: Yes no acute distress Neurologic: Yes alert and Yes oriented x3 Psychologic: Yes reasonable and appropriate Right Knee Skin/Wound: No erythema, No ecchymosis and No swelling Homans Sign: No Knee ROM: Yes ROM-Extension -20 to 0 (-3) and Yes ROM-Flexion 0-140 (93) Examination: No Med jt line tenderness, No Lat jt line tenderness and No TTP PesAnserine Stability: NML: Anterior Drawer, NML: Posterior Drawer, NML: Valgus 0, NML: Valgus 30, NML: Varus 0 and NML: Varus 30 Patella Translation: 1 Left Knee Skin/Wound: No ecchymosis, No erythema and No swelling Knee ROM: Yes ROM-Extension -20 to 0 (-3) and Yes ROM-Flexion 0-140 (93) Examination: No med jt line tenderness and No Lat jt line tenderness Stability: NML: Anterior Drawer, NML: Bautista, NML: Posterior Drawer, NML: Valgus 0, NML: Valgus 30, NML: Varus 0 and NML: Varus 30 Patella Translation: 1 KNEE: no effusion varus deformity 2mm medial gapping with valgus stress Office Procedures Euflexxa Procedure Details:: Obtained consent for injection. Under sterile conditions, injected the patientsright knee with 20ml Euflexxa injection. The patient tolerated the injection well without any noted complication. Patient should call our office if redness develops, pain worsens or if they have any concerns. Is this Buy & Bill?: Yes Euflexxa Procedure Details:: Obtained consent for injection. Under sterile conditions, injected the patientsLeft knee with 20ml Euflexxa injection. The patient tolerated the injection well without any noted complication. Patient should call our office if redness develops, pain worsens or if they have any concerns. Is this Buy & Bill?: Yes Office Meds Euflexxa 10 mg/mL (mw 2.4-3.6 million) intra-articular syringe Performing Provider: Too Latham DO Performing Location: [facility] Administered by: Too Latham DO on 05/10/25 09:08 Dose Route Admin Location Dispensed Lot Number Expiration Date ND Glaze Sprayer 20 mg intra-articular Right knee 2 mL [id number] 06/25/26 [address]-2 [employer] Euflexxa 10 mg/mL (mw 2.4-3.6 million) intra-articular syringe Performing Provider: Too Latham DO Performing Location: [facility] Administered by: Too Latham DO on 05/10/25 09:11 Dose Route Admin Location Dispensed Lot Number Expiration Date ND Glaze Sprayer 20 mg intra-articular left knee 2 mL [id number] 06/25/26 [address]-6 [employer] Supplemental Info 02/23/2025 right total hip arthroplasty: Dr. Latham 02/08/2025 x-ray bilateral hips: Status post left total hip arthroplasty with good interfaces and position; right hip has severe end-stage arthrosis with flattening of the femoral head, x-ray last 12/29/2024 left total hip arthroplasty: Dr. Latham 07/27/2024 x-ray right knee: Advanced knee arthrosis there is subluxation of thetibia laterally Advanced knee arthrosis there is subluxation of the tibia laterally advanced varus deformity 07/27/2024 x-ray left knee: Advanced knee arthrosis there is subluxation of the tibia laterally advanced varus deformity 06/01/2024 x-ray pelvis: Advanced bilateral hip arthrosis [id number] with bony erosion large cystic changes of the femoral head and acetabulum Coding Level of Care Code Attention Resource Recovery Engineer Diagnoses Bilateral primary osteoarthritis of knee M17.0 Assessment and Plan Assessment and Plan (1) Bilateral primary osteoarthritis of knee: Status: Acute Orders: Orders Euflexxa Injection Today Euflexxa Injection Today Plan Third bilateral knee Euflexxa injection given today. He can follow-up on an as-needed basis. Clinical Quality Measures Falls Risk Screening/Assistive Devices Have you fallen in the past year?: No 05/10/25 0927 <Electronically signed by Too watts DO> Date _ Too Latham DO Cosigner Signature: Date (if applicable) CC: ~ [facility] Work Phone: [phone] Telephone encounter Note* Telephone Encounter - Linette Tate MA - 04/12/2025 3:42 PM EDT As patient advised below some need resent due to [facility] closing Patient has been identified by name and date of : yes Patient phones for refill(s): Requested Prescriptions Pending Prescriptions Disp Refills Valsartan-hydroCHLOROthiazide 320-25 mg per tablet 90 tablet 3 Sig: Take 1 tablet by mouth once daily. omeprazole (PRILOSEC) 40 mg capsule 90 capsule 3 Sig: Take 1 capsule by mouth once daily. etodolac (LODINE) 400 mg tablet 60 tablet 5 Sig: Take 1 tablet by mouth two times a day. gemfibrozil (LOPID) 600 mg tablet 180 tablet 3 Sig: Take 1 tablet by mouth two times a day. Date of last office visit in primary care: 12/21/2024 Date of next office visit in primary care: 05/21/2025 Please advise. Thank you. Linette Tate MA. [facility]06-30-2025 Miscellaneous Notes* Telephone Encounter - Linette Tate MA - 04/12/2025 3:42 PM EDT As patient advised below some need resent due to [facility] closing Patient has been identified by name and date of : yes Patient phones for refill(s): Requested Prescriptions Pending Prescriptions Disp Refills Valsartan-hydroCHLOROthiazide 320-25 mg per tablet 90 tablet 3 Sig: Take 1 tablet by mouth once daily. omeprazole (PRILOSEC) 40 mg capsule 90 capsule 3 Sig: Take 1 capsule by mouth once daily. etodolac (LODINE) 400 mg tablet 60 tablet 5 Sig: Take 1 tablet by mouth two times a day. gemfibrozil (LOPID) 600 mg tablet 180 tablet 3 Sig: Take 1 tablet by mouth two times a day. Date of last office visit in primary care: 12/21/2024 Date of next office visit in primary care: 05/21/2025 Please advise. Thank you. Linette Tate MA. * Telephone Encounter - Casandra Diehl - 04/12/2025 3:27 PM EDT Patient has been identified by name and date of : Yes, Provider Date 04/12/25 Time3:30 pm Patient phones for refill(s): Requested Prescriptions Pending Prescriptions Disp Refills Valsartan-hydroCHLOROthiazide 320-25 mg per tablet 90 tablet 3 Sig: Take 1 tablet by mouth once daily. omeprazole (PRILOSEC) 40 mg capsule 90 capsule 3 Sig: Take 1 capsule by mouth once daily. etodolac (LODINE) 400 mg tablet 60 tablet 5 Sig: Take 1 tablet by mouth two times a day. gemfibrozil (LOPID) 600 mg tablet 180 tablet 3 Sig: Take 1 tablet by mouth two times a day. Date of last office visit in primary care: 12/21/2024 Date of next office visit in primary care: 05/21/2025 Patient stated he is out of the Valsartan, he switched pharmacies and they did not transfer these medications over Please advise. Thank you. Casandra Egan. [facility] Telephone encounter Note * Telephone Encounter - Casandra Diehl - 04/12/2025 3:27 PM EDT Patient has been identified by name and date of : Yes, Provider Date 04/12/25 Time3:30 pm Patient phones for refill(s): Requested Prescriptions Pending Prescriptions Disp Refills Valsartan-hydroCHLOROthiazide 320-25 mg per tablet 90 tablet 3 Sig: Take 1 tablet by mouth once daily. omeprazole (PRILOSEC) 40 mg capsule 90 capsule 3 Sig: Take 1 capsule by mouth once daily. etodolac (LODINE) 400 mg tablet 60 tablet 5 Sig: Take 1 tablet by mouth two times a day. gemfibrozil (LOPID) 600 mg tablet 180 tablet 3 Sig: Take 1 tablet by mouth two times a day. Date of last office visit in primary care: 12/21/2024 Date of next office visit in primary care: 05/21/2025 Patient stated he is out of the Valsartan, he switched pharmacies and they did not transfer these medications over Please advise. Thank you. Casandra Egan. [facility]06-19-2025 Discharge summary Author Simone Mayers [facility] Note Date/Time April 01, 2025 7:00 pm [facility] [place] [address] / REHABILITATION SERVICES DISCHARGE SUMMARY MR#: [id number] Acct: [id number] Name: MILES TURNER Rep #: [id number] : 1965 59 From: Cert. ADIA RivasT, OCS Referring Dr.: Dr. Too Latham DO Status: REG RCR Insurance: [employer]ANCE Discharge Summary D/C summary: It has been my pleasure to treat MILES TURNER referred by Dr. Too Latham DO, with the diagnosis of UNILATERAL PRIMARY OSTEOARTHRITIS, RIGHT HIP for a total of 10 visit(s). Discharge Date: 04/01/25 Please see the following information for a summary of their discharge status. Subjective Subjective: Doing great No cane Working around house yard Pain Right Hip: Pain Intensity (Out of 10): 0 Overall Improvement % Improvement: 90 Objective Objective/Function: POSTURE: mild forward posture GAIT: reciprocal pattern BALANCE: GOOD SKIN: intact AROM: supine flexion hip 90 degrees ,k ,hip abduction 40 degrees MMT: ( peak force) hip flexion 36.5 ,hip extension 28.4 ,quads 27.8 ,hamstrings 50.9,hip abd 19.3 , hip abduction ankle 5/5 STAIRS: alternating steps with rails Goals Goal 1:: Patient to be I with HEP for ANA MARIA Goal Progress: Goal Met Goal 2:: Patient to normalize gait pattern with no device Goal Progress: Goal Met Goal 3:: Patient to improve peak force quads/hams/hip by 10-15# to improve gait Goal Progress: Goal Met Goal 4:: Patient to improve TUG score under 12 sec to improve gait Goal Progress: Goal Met Goal 5:: Patient to improve LFES score by 10 points to improve QOL and function Goal Progress: Goal Met Goal 6:: Patient to improve ROM hip by 15 -20 degrees to improve gait Goal Progress: Goal Met Plan Plan: D/C TO HEP D/C Information Discharge Comments: d/c HEP d/c sentence: If there are questions or concerns regarding this patient's physical therapy, please feel free to call me at [phone]. Thank you for the referral of thispatient. Sincerely, Simone Mayers PT, Cert MDT, OCS Balance/Gait/Functional tests Balance/Special Test Scores Lower Extremity Functional Score: 61 TUG Test Time Seconds: 23.25 Tug Test: 20-30sec.=variable mobility WOMAC Total Score: 8 WOMAC Percentage: 91.6700 Improvement % Improvement: 90 <Electronically signed by Simone Mayers PT, Cert. MDT, OCS> 04/01/25 1201 CC: Dr. Too Latham DO; Dr. Vinh Aguilar MD ~ [facility] Signed [facility] Work Phone: [phone] Discharge summary [facility] [address] [place] [address] / REHABILITATION SERVICES DISCHARGE SUMMARY MR#: [id number] Acct: [id number] Name: MILES TURNER Rep #: [id number] : 1965 59 From: Aura Rivas. T, OCS Referring Dr.: Dr. Too Latham DO Status: REG RCR Insurance: [employer]ANCE Discharge Summary D/C summary: It has been my pleasure to treat MILES TURNER referred by Dr. Too Latham DO, with thediagnosis of UNILATERAL PRIMARY OSTEOARTHRITIS, RIGHT HIP for a total of 10 visit(s). Discharge Date: 04/01/25 Please see the following information for a summary of their discharge status. Subjective Subjective: Doing great No cane Working around house yard Pain Right Hip: Pain Intensity (Out of 10): 0 Overall Improvement % Improvement: 90 Objective Objective/Function: POSTURE: mild forward posture GAIT: reciprocal pattern BALANCE: GOOD SKIN: intact AROM: supine flexion hip 90 degrees ,k ,hip abduction 40 degrees MMT: ( peak force) hip flexion 36.5 ,hip extension 28.4 ,quads 27.8 ,hamstrings 50.9,hip abd 19.3 ,hip abduction ankle 5/5 STAIRS: alternating steps with rails Goals Goal 1:: Patient to be I with HEP for ANA MAIRA Goal Progress: Goal Met Goal 2:: Patient to normalize gait pattern with no device Goal Progress: Goal Met Goal 3:: Patient to improve peak force quads/hams/hip by 10-15# to improve gait Goal Progress: Goal Met Goal 4:: Patient to improve TUG score under 12 sec to improve gait Goal Progress: Goal Met Goal 5:: Patient to improve LFES score by 10 points to improve QOL and function Goal Progress: Goal Met Goal 6:: Patient to improve ROM hip by 15 -20 degrees to improve gait Goal Progress: Goal Met Plan Plan: D/C TO HEP D/C Information Discharge Comments: d/c HEP d/c sentence: If there are questions or concerns regarding this patient's physical therapy, please feel free to call me at [phone]. Thank you for the referral of thispatient. Sincerely, Simone Mayers, PT, Cert MDT, OCS Balance/Gait/Functional tests Balance/Special Test Scores Lower Extremity Functional Score: 61 TUG Test Time Seconds: 23.25 Tug Test: 20-30sec.=variable mobility WOMAC Total Score: 8 WOMAC Percentage: 91.6700 Improvement % Improvement: 90 04/01/25 1201 CC: Dr. Too Latham DO; Dr. Vinh Aguilar MD ~ JLA Signed [facility]05-13-2025 Consult note [facility] Medical Records Department [address] [place] [address] Anesthesia Postop Eval I 02/23/25 1344 MR#: [id number] Acct: [id number] Name: MILES TURNER Rep #:[id number] : 1965 59 From: [place] RIVET CATCHER PCP: Dr. Vinh Aguilar MD Status:R [facility] Y Race: C Location: [place] [address] Anesthesia: Postop Eval I Current Vital Signs Temperature: 97.6 F Pulse Rate: 87 Blood Pressure: 107/73 Respiratory Rate: 16 Pulse Ox: 96 Oxygen Delivery Method: Room Air Assessment Airway patent: Yes Spontaneous unlabored respirations: Yes Mental status: Awake and Calm nausea: No Vomiting: No Anesthesia Complication: No Fluid Hydration Crystalloid volume administer (ml): 1,800 Total IV fluid infused: 1,800 Progress Note Anesthesia document: Postop Eval 1 completed: Yes 02/23/25 1344 c RIVET CATCHER> Date _ [place] RIVET CATCHER Cosigner Signature: Date CC: ~ Signed [facility]05-13-2025 Consult note [facility] Medical Records Department [address] [place] [address] Anesthesia Postop Eval II 02/23/25 1402 MR#: [id number] Acct: [id number] Name: MILES TURNER Rep #:[id number] : 1965 59 From: Vinicius Fischer PCP: Dr. Vinh Aguilar MD Status:R [facility] Y Race: C Location: [address] Anesthesia Postop Eval I Sum Postop Eval Completion status Anesthesia document: Postop Eval 1 completed: Yes Anesthesia Postop Eval I Summary Anesthesia Postop Eval I Summary: Anesthesia Postop Eval I: Assessment Summary Airway patent Yes 02/23/25 13:44 [email or web address] Spontaneous unlabored Yes 02/23/25 13:44 [email or web address] [email or web address] respirations Mental status Awake,Calm 02/23/25 13:44 [email or web address] nausea No 02/23/25 13:44 [email or web address] [email or web address] Vomiting No 02/23/25 13:44 [email or web address] Anesthesia Postop Eval I: Fluid Summary Crystalloid volume administer 1,800 02/23/25 13:44 [email or web address] [email or web address] (ml) Colloids volume administered ( ml) Blood Product volume administered (ml) Total IV fluid infused 1,800 02/23/25 13:44 [email or web address] [email or web address] Anesthesia Postop Eval I: Summary Notes Anesthesia Complication No 02/23/25 13:44 [email or web address] Anesthesia Complication Comment: Post-operative progress note Anesthesia: Postop Eval II Evaluation Mental status: Awake and Calm Pain Level: 4 nausea: No Vomiting: No Complications Anesthesia Complication: No 02/23/25 1402 > Date _ Vinicius Carlson MD Cosign Signature: Date CC: ~ Signed [facility]05-13-2025 History and physical note [facility] Medical Records Department [address] [place] [address] History & Physical Exam 02/23/25 1020 MR#: [id number] Acct: [id number] Name: MILES TURNER Rep #:[id number] : 1965 59 From: Too Latham DO PCP: Dr. Vinh Aguilar MD Status:[place] [facility] Location: [place] [address] History and Physical Date of Admission: 02/23/25 [facility] [address] [place] [address] OFFICE VISIT Date of Service: 02/08/25 MR#: [id number] Acct: [id number] Name: MILES TURNER Rep #: [id number] : 1965 Provider: Dr. Too Latham DO Age/Sex: 59/M Location: [facility] Status: Signed Intake Vital Signs 11/04/2514:56 01/11/2510:47 Height 5 ft 9.5 in 5 ft 9 in Intake Visit Reasons: left hip Chief Complaint: 6 week post op left hip Accompanied by: Is patient in pain?: No Allergies No Known Allergies Allergy (Verified 02/08/25 10:52) Medications ?Medication ?Instructions ?Recorded ?Confirmed ?Type gemfibrozil 600 mg tablet 600 mg PO BIDAC 01/08/18 02/08/25 Histor y omeprazole 40 mg capsule,delayed 40 mg PO QDAY 07/27/24 02/08/25 History release valsartan 320 1 tab PO QDAY 07/27/24 02/08/25 History mg-hydrochlorothiazide 25 mg tablet acetaminophen 500 mg tablet 1,000 mg (2 x 500 mg) PO Q6H #100 02/08/25 Rx tabs etodolac 400 mg tablet 400 mg PO BID 02/08/25 02/08/25 History folic acid 1 mg tablet 1 mg PO QDAY 02/08/25 02/08/25 History methotrexate sodium 15 mg tablet 25 mg PO QWEEK 02/08/25 02/08/25 History PFSH Medical History Wears glasses Colonoscopy planned Gastric reflux History of stress test Former smoker Surgical History History of total left hip replacement Family History Mother Heart disease DiabetesFather Heart disease Social History household members: spouse Smoking Status: Former smoker alcohol intake: current alcohol intake frequency: holidays/special occasions only HPI left hip Details: This documentation accurately reflects the service provided and the decisions made by me, Dr. Too Latham, DO 02/08/25 0810. Part of today?s visit was documented by Kimberly Ariza ATC, acting as scribe. MILES TURNER is a 59 year old M here today for s/p left total hip arthroplastyDOS 12/29/2024. Patient denies any pain in the left hip and states he is doing well after surgery. He ambulates with a cane today. Patient states the right hipis bothering him and he states since surgery it has gotten worse. He states he can barely put any weight on it and physical therapy seems to be aggravating it more. He describes the pain in the groin and he will feel the pain in the back of the hip and into thelumbar spine. He denies any numbness/tingling down the leg. He had an injection with the [facility] in the hip about a year ago and he didn't get any relief from it. He denies any prior surgeryto the right hip. Ortho Exam General General: Yes no acute distress and Yes well groomed Neurologic: Yes alert and Yes oriented x3 Psychologic: Yes reasonable and appropriate Right Hip Skin: Yes CDI, No Ecchymosis, No soft tissue swelling and No Erythema HIP: good sensation in lower leg No gross motor or sensory deficits Groin pain with hip range of motion He is able to ambulate with a cane IR -10 ER 10 Left Hip Skin/Wound: Yes CDI, No Ecchymosis, No soft tissue swelling and No Erythema Hip: Absent eccymosis, soft tissue swelling or erythema HIP: good sensation in lower leg Head: Normocephalic Atraumatic Chest: symmetrical rise, non-labored breathing, no audible wheeze Abdomen: no guarding, non-rigid Supplemental Info 02/08/2025 x-ray bilateral hips: Status post left total hip arthroplasty with good interfaces and position; right hip has severe end-stage arthrosis with flattening of the femoral head, x-ray last 12/29/2024 left total hip arthroplasty: Dr. Latham 07/27/2024 x-ray right knee: Advanced knee arthrosis there is subluxation of thetibia laterally Advanced knee arthrosis there is subluxation of the tibia laterally advanced varus deformity 07/27/2024 x-ray left knee: Advanced knee arthrosis there is subluxation of the tibia laterally advanced varus deformity 06/01/2024 x-ray pelvis: Advanced bilateral hip arthrosis [id number] with bony erosion large cystic changes of the femoral head and acetabulum Coding Level of Care Code Off vis,est,level 4 Diagnoses Avascular necrosis of right femur M87.051 Laterality: right Rheumatoid arthritis involving both hips with positive rheumatoid factor M05.751; M05.752 Rheumatoid arthritis location: hip Rheumatoid factor presence: with rheumatoid factor Laterality: bilateral Assessment and Plan Assessment and Plan (1) AVN of femur: Status: Acute Qualifiers: Laterality: right Qualified Code(s): M87.051 - Idiopathic aseptic necrosis of right femur (2) Rheumatoid arthritis: Status: Acute Qualifiers: Rheumatoid arthritis location: hip Rheumatoid factor presence: with rheumatoid factor Laterality: bilateral Qualified Code(s): M05.751 - Rheumatoid arthritis with rheumatoid factor of right hip without organ or systems involvement; M05.752 - Rheumatoid arthritis with rheumatoid factor of left hip without organ or systems involvement Orders: Orders Extremity Lower without Contra Today M16.11 - Unilateral primary osteoarthritis, right hip Referrals Physical Therapy Referral M16.11 - Unilateral primary osteoarthritis, right hip Plan Obtained and reviewed x-rays of both of the hips. Explained that his right hip does have severe arthritis and he has developed collapse of his femoral head. He would like to proceed with total hip arthroplasty of the right hip. recommend he should stop physical therapy for the left hip as it is making his right hip worse. Risks, benefits and alternatives of surgery reviewed including but not limited to bleeding, infection, nerve, foot drop, artery and/or tissue damage, fracture, VTE, leg lengthdiscrepancy, dislocation, need for hip precautions, continued pain and expected post-operative course. Patient would like to proceed with a right ANA MARIA. I did offer him a walker so that he does not fall he feels he is confident enough with a cane that he does not need it. he should not take any Etodolac or NSAIDs 7 days prior to surgery. He should also stop taking the Methotrexate 2 weeks prior to surgery as well. Due to the severity of the hip as the femoral head has collapsed we will order a stat/urgent CT scan right hip with MAKOplasty for evaluation and templating of right total hip arthroplasty. we will get him scheduled for surgery for February 23. He should avoid picking up any heavy weight and be careful when bending over. Follow up after surgery for post-op or sooner if pain, swelling, numbness or associated symptoms, or concerns develop. All questions answered. Patient in agreement of plan. 02/08/25 1143 Date Too Latham DO I have examined the patient and the H&P has been reviewed. There are no clinicalchanges since date of exam. 02/23/25 1020 Cosigner Signature (if applicable): CC: Dr. Too Latham DO; Dr. Vinh Aguilar MD~ Signed [facility]05-13-2025 History and physical note [facility] Medical Records Department [address] [place] [address] History & Physical Exam 02/23/25 1109 MR#: [id number] Acct: [id number] Name: YUEMILES BRENDAN Rep #:[id number] : 1965 59 From: Too Latham DO PCP: Dr. Vinh Aguilar MD Status:R [facility] Location: [address] History and Physical Date of Admission: 02/23/25 [facility] Medical Records Department [address] [place] [address] History & Physical Exam 02/23/25 1020 MR#: [id number] Acct: [id number] Name: YUEMILES CARDONA Rep #: [id number] : 1965 59 From: Too Latham DO PCP: Dr. Vinh Aguilar MD Status: [facility] Location: [place] [address] History and Physical Date of Admission: 02/23/25 [facility] [address] [place] [address] OFFICE VISIT Date of Service: 02/08/25MR#: [id number] Acct: [id number] Name: MILES TURNER Rep #: [id number] : 1965 Provider: Dr. Too Latham DO Age/Sex: 59/M Location: [facility] Status: Signed Intake Vital Signs 11/04/2514:56 01/11/2510:47 Height 5 ft 9.5 in 5 ft 9 in Intake Visit Reasons: left hip Chief Complaint: 6 week post op left hip Accompanied by: Is patient in pain?: No Allergies No Known Allergies Allergy (Verified 02/08/25 10:52) Medications ?Medication ?Instructions ?Recorded ?Confirmed ?Type gemfibrozil 600 mg tablet 600 mg PO BIDAC 01/08/18 02/08/25 Histor y omeprazole 40 mg capsule,delayed 40 mg PO QDAY 07/27/24 02/08/25 History release valsartan 320 1 tab PO QDAY 07/27/24 02/08/25 History mg-hydrochlorothiazide 25 mg tablet acetaminophen 500 mg tablet 1,000 mg (2 x 500 mg) PO Q6H #100 02/08/25 Rx tabs etodolac 400 mg tablet 400 mg PO BID 02/08/25 02/08/25 History folic acid 1 mg tablet 1 mg PO QDAY 02/08/25 02/08/25 History methotrexate sodium 15 mg tablet 25 mg PO QWEEK 02/08/25 02/08/25 History PFSH Medical History Wears glasses Colonoscopy planned Gastric reflux History of stress test Former smoker Surgical History History of total left hip replacement Family History Mother Heart disease DiabetesFather Heart disease Social History household members: spouse Smoking Status: Former smoker alcohol intake: current alcohol intake frequency: holidays/special occasions only HPI left hip Details: This documentation accurately reflects the service provided and the decisions made by me, Dr. Too Latham, 02/08/25 0810. Part of today?s visit was documented by Kimberly Ariza ATC, acting as scribe. MILES TURNER is a 59 year old M here today for s/p left total hip arthroplastyDOS 12/29/2024. Patient denies any pain in the left hip and states he is doing well after surgery. He ambulates with a cane today. Patient states the right hipis bothering him and he states since surgery it has gotten worse. He states he can barely put any weight on it and physical therapy seems to be aggravating it more. He describes the pain in the groin and he will feel the pain in the back of the hip and into thelumbar spine. He denies any numbness/tingling down the leg. He had an injection with the [facility] in the hip about a year ago and he didn't get any relief from it. He denies any prior surgeryto the right hip. Ortho Exam General General: Yes no acute distress and Yes well groomed Neurologic: Yes alert and Yes oriented x3 Psychologic: Yes reasonable and appropriate Right Hip Skin: Yes CDI, No Ecchymosis, No soft tissue swelling and No Erythema HIP: good sensation in lower leg No gross motor or sensory deficits Groin pain with hip range of motion He is able to ambulate with a cane IR -10 ER 10 Left Hip Skin/Wound: Yes CDI, No Ecchymosis, No soft tissue swelling and No Erythema Hip: Absent eccymosis, soft tissue swelling or erythema HIP: good sensation in lower leg Head: Normocephalic Atraumatic Chest: symmetrical rise, non-labored breathing, no audible wheeze Abdomen: no guarding, non-rigid Head: Normocephalic Atraumatic Chest: symmetrical rise, non-labored breathing, no audible wheeze Abdomen: no guarding, non-rigid Supplemental Info 02/08/2025 x-ray bilateral hips: Status post left total hip arthroplasty with good interfaces and position; right hip has severe end-stage arthrosis with flattening of the femoral head, x-ray last 12/29/2024 left total hip arthroplasty: Dr. Latham 07/27/2024 x-ray right knee: Advanced knee arthrosis there is subluxation of thetibia laterally Advanced knee arthrosis there is subluxation of the tibia laterally advanced varus deformity 07/27/2024 x-ray left knee: Advanced knee arthrosis there is subluxation of the tibia laterally advanced varus deformity 06/01/2024 x-ray pelvis: Advanced bilateral hip arthrosis [id number] with bony erosion large cystic changes of the femoral head and acetabulum Coding Level of Care Code Off vis,est,level 4 Diagnoses Avascular necrosis of right femur M87.051 Laterality: right Rheumatoid arthritis involving both hips with positive rheumatoid factor M05.751; M05.752 Rheumatoid arthritis location: hip Rheumatoid factor presence: with rheumatoid factor Laterality: bilateral Assessment and Plan Assessment and Plan (1) AVN of femur: Status: Acute Qualifiers: Laterality: right Qualified Code(s): M87.051 - Idiopathic aseptic necrosis of right femur (2) Rheumatoid arthritis: Status: Acute Qualifiers: Rheumatoid arthritis location: hip Rheumatoid factor presence: with rheumatoid factor Laterality: bilateral Qualified Code(s): M05.751 - Rheumatoid arthritis with rheumatoid factor of right hip without organ or systems involvement; M05.752 - Rheumatoid arthritis with rheumatoid factor of left hip without organ or systems involvement Orders: Orders Extremity Lower without Contra Today M16.11 - Unilateral primary osteoarthritis, right hip Referrals Physical Therapy Referral M16.11 - Unilateral primary osteoarthritis, right hip Plan Obtained and reviewed x-rays of both of the hips. Explained that his right hip does have severe arthritis and he has developed collapse of his femoral head. He would like to proceed with total hip arthroplasty of the right hip. recommend he should stop physical therapy for the left hip as it is making his right hip worse. Risks, benefits and alternatives of surgery reviewed including but not limited to bleeding, infection, nerve, foot drop, artery and/or tissue damage, fracture, VTE, leg lengthdiscrepancy, dislocation, need for hip precautions, continued pain and expected post-operative course. Patient would like to proceed with a right ANA MARIA. I did offer him a walker so that he does not fall he feels he is confident enough with a cane that he does not need it. he should not take any Etodolac or NSAIDs 7 days prior to surgery. He should also stop taking the Methotrexate 2 weeks prior to surgery as well. Due to the severity of the hip as the femoral head has collapsed we will order a stat/urgent CT scan right hip with MAKOplasty for evaluation and templating of right total hip arthroplasty. we will get him scheduled for surgery for February 23. He should avoid picking up any heavy weight and be careful when bending over. Follow up after surgery for post-op or sooner if pain, swelling, numbness or associated symptoms, or concerns develop. All questions answered. Patient in agreement of plan. I have examined the patient and the H&P has been reviewed. There are no clinicalchanges since date of exam. 02/23/25 1109 Cosigner Signature (if applicable): CC: Dr. Too Latham DO; Dr. Vinh Aguilar MD~ Signed [facility]05-13-2025 Consult note Author Vinicius Carlson [facility] Note Date/Time February 23, 2025 5:30p [facility] Medical Records Department [address] [place] [address] Anesthesia Postop Eval II 02/23/25 1402 MR#: [id number] Acct: [id number] Name: MILES TURNER Rep #:[id number] : 1965 59 From: Vinicius Fischer PCP: Dr. Vinh Aguilar MD Status:R [facility] [place] Race: C Location: [place] [address]1 Anesthesia Postop Eval I Sum Postop Eval Completion status Anesthesia document: Postop Eval 1 completed: Yes Anesthesia Postop Eval I Summary Anesthesia Postop Eval I Summary: Anesthesia Postop Eval I: Assessment Summary Airway patent Yes 02/23/25 13:44 [email or web address] Spontaneous unlabored Yes 02/23/25 13:44 [email or web address] [email or web address] respirations Mental status Awake,Calm 02/23/25 13:44 [email or web address] nausea No 02/23/25 13:44 [email or web address] [email or web address] Vomiting No 02/23/25 13:44 [email or web address] Anesthesia Postop Eval I: Fluid Summary Crystalloid volume administer 1,800 02/23/25 13:44 [email or web address] [email or web address] (ml) Colloids volume administered ( ml) Blood Product volume administered (ml) Total IV fluid infused 1,800 02/23/25 13:44 [email or web address] [email or web address] Anesthesia Postop Eval I: Summary Notes Anesthesia Complication No 02/23/25 13:44 [email or web address] Anesthesia Complication Comment: Post-operative progress note Anesthesia: Postop Eval II Evaluation Mental status: Awake and Calm Pain Level: 4 nausea: No Vomiting: No Complications Anesthesia Complication: No 02/23/25 1402 <Electronically signed by Vinicius Carlson MD> Date _ Vinicius Carlson MD Cosigner Signature: Date CC: ~ Signed [facility] Work Phone: 1(105) 538-340705-13-2025 Consult note Author Magdalena Beach [facility] Note Date/Time February 23, 2025 5:30p m [facility] Medical Records Department [address] [place] [address] Anesthesia Postop Eval I 02/23/25 1344 MR#: [id number] Acct: [id number] Name: MILES TURNER Rep #:[id number] : 1965 59 From: Magdalena Beach RIVET CATCHER PCP: Dr. Vinh Aguilar MD Status:R [facility] Y Race: C Location: [place] [address] Anesthesia: Postop Eval I Current Vital Signs Temperature: 97.6 F Pulse Rate: 87 Blood Pressure: 107/73 Respiratory Rate: 16 Pulse Ox: 96 Oxygen Delivery Method: Room Air Assessment Airway patent: Yes Spontaneous unlabored respirations: Yes Mental status: Awake and Calm nausea: No Vomiting: No Anesthesia Complication: No Fluid Hydration Crystalloid volume administer (ml): 1,800 Total IV fluid infused: 1,800 Progress Note Anesthesia document: Postop Eval 1 completed: Yes 02/23/25 1344 <Electronically signed by Magdalena payne RIVET CATCHER> Date _ Magdalena Beach RIVET CATCHER Cosigner Signature: Date CC: ~ Signed [facility] Work Phone: 1(950) 385-682005-13-2025 Discharge summary Author Too Latham [facility] Note Date/Time February 23, 2025 1:30p m [facility] Medical Records Department [address] [place] [address] Instructions for Home/Discharge Instructions 02/23/25 1327 MR#: [id number] Acct: [id number] Name: MILES TURNER Rep #:[id number] : 1965 59 From: Too Latham DO PCP: Dr. Vinh Aguilar MD Status:R [facility] Discharge Instructions Diet Discharge Diet: No restrictions Dressing / Incision Call your doctor if you observe: Shortness of breath and Chest pain Additional Dressing/Incision Instructions:: Do not shower for 72hrs. May Begin daily showering with warm water antibacterial soap postop day #3( 72hrs Post- operatively) and then daily. Leave the dressing on for 72 hours postoperativelythen remove prior to first shower and change dressing daily after this until no drainage for 2 consecutive days then may leave open to air. If you decide not shower on Saturday and wish to sponge bath only, then may leave dressing undisturbed for up to 1 week, but must remove prior to first shower. Do not submerge for 3 weeks. If not showering daily after the initial dressing is removed you must clean incision and change dressing daily after the dressingcomes off, must come off by 7 days postop. Do not allow animals near the incision area. Keep clean. Follow hip precautions that were reviewed in hospital. Wear compression stockings, may remove at night. Start physical therapy as directed in hospital. Follow prescriptions instructions do not take any other pain medication or differ dosing without consulting your physician. Do not take oral NSAIDs until blood thinner has been completed , then may begin the day after completion if needed . Call Dr. Latham's office with any concerns. Follow Up Care Please Follow Up With: Too Latham DO When: 2 weeks Test Results: Test results from this visit will be discussed in further detail at your follow- up appointment, if applicable. Discharge Plan Admission Primary Reason for Your Visit: Right total hip arthroplasty Attending Provider: Too Latham Primary Care Provider: Vinh Aguilar Instructions Print Language: [place] Discharge Orders/Prescriptions Prescriptions: New acetaminophen 500 mg tablet 1,000 mg PO Q6H Qty: 90 0RF cephalexin 500 mg capsule 1,000 mg PO Q8H Qty: 4 0RF Rx Instructions: Take 2 tabs before you go to bed and 2 tabs after 5 AM morning after surgery when you wake up Eliquis 2.5 mg tablet 2.5 mg PO BID Qty: 42 0RF Rx Instructions: Begin morning after surgery. oxycodone 5 mg tablet 5 - 10 mg PO Q4H PRN (Reason: pain) 7 Days Qty: 60 0RF Continued valsartan-hydrochlorothiazide 320-25 mg tablet 1 tab PO QDAY omeprazole 40 mg capsule,delayed release(DR/EC) 40 mg PO QDAY folic acid 1 mg tablet 1 mg PO BID gemfibrozil 600 MG tablet 600 mg PO BIDAC omega 5-xzy-rwm-fish oil [Fish Oil] 1,200 (144-216) mg capsule 1 cap PO DAILY cholecalciferol (vitamin D3) [Vitamin D3] 25 mcg (1,000 unit) tablet 25 mcg PO DAILY Held etodolac 400 mg tablet 400 mg PO BID Hold Instructions: May resume after completion of blood thinner if needed methotrexate sodium 15 mg tablet 25 mg PO QWEEK Hold Instructions: Resume on 03/16/25. Rx Instructions: 8 tablets every Saturday acetaminophen [8 Hour Pain Reliever] 650 mg tablet extended release 1,300 mg PO Q12H PRN (Reason: pain) Hold Instructions: Duplicate Referrals / Follow Up: Vinh Aguilar MD [Primary Care Provider] - Disposition Disposition (needs filled in before D/C Order can be placed): Home, Self Care 02/23/25 1330<Electronically signed by Too Latham DO>Too Latham DO CC: Dr. Vinh Aguilar MD ~ Signed [facility] Work Phone: 1(856) 154-503805-13-2025 Discharge summary [facility] Medical Records Department [address] [place] [address] Instructions for Home/Discharge Instructions 02/23/25 1327 MR#: [id number] Acct: [id number] Name: MILES TURNER Rep #:[id number] : 1965 59 From: Too Latham DO PCP: Dr. Vinh Aguilar MD Status:R [facility] Discharge Instructions Diet Discharge Diet: No restrictions Dressing / Incision Call your doctor if you observe: Shortness of breath and Chest pain Additional Dressing/Incision Instructions:: Do not shower for 72hrs. May Begin daily showering withwarm water antibacterial soap postop day #3( 72hrs Post- operatively) and then daily. Leave the dressing on for 72 hours postoperativelythen remove prior to first shower and change dressing daily after this until no drainage for 2 consecutive days then may leave open to air. If you decide not shower on Saturday and wish to sponge bath only, then may leave dressing undisturbed for up to 1 week, but must remove prior to first shower. Do not submerge for 3 weeks. If not showering daily after the initial dressing is removed you must clean incision and change dressing daily after the dressingcomes off, must come off by 7 days postop. Do not allow animals near the incision area. Keep clean. Follow hip precautions that were reviewed in hospital. Wear compression stockings, may remove at night. Start physical therapy as directed in hospital. Follow prescriptions instructions do not take any other pain medication or differ dosing without consulting your physician. Do not take oral NSAIDsuntil blood thinner has been completed , then may begin the day after completion if needed . Call Dr. Latham's office with any concerns. Follow Up Care Please Follow Up With: Too Latham DO When: 2 weeks Test Results: Test results from this visit will be discussed in further detail at your follow- up appointment, if applicable. Discharge Plan Admission Primary Reason for Your Visit: Right total hip arthroplasty Attending Provider: Too Latham Primary Care Provider: Vinh Aguilar Instructions Print Language: [place] Discharge Orders/Prescriptions Prescriptions: New acetaminophen 500 mg tablet 1,000 mg PO Q6H Qty: 90 0RF cephalexin 500 mg capsule 1,000 mg PO Q8H Qty: 4 0RF Rx Instructions: Take 2 tabs before you go to bed and 2 tabs after 5 AM morning after surgery when you wake up Eliquis 2.5 mg tablet 2.5 mg PO BID Qty: 42 0RF Rx Instructions: Begin morning after surgery. oxycodone 5 mg tablet 5 - 10 mg PO Q4H PRN (Reason: pain) 7 Days Qty: 60 0RF Continued valsartan-hydrochlorothiazide 320-25 mg tablet 1 tab PO QDAY omeprazole 40 mg capsule,delayed release(DR/EC) 40 mg PO QDAY folic acid 1 mg tablet 1 mg PO BID gemfibrozil 600 MG tablet 600 mg PO BIDAC omega 3-ukb-lcg-fish oil [Fish Oil] 1,200 (144-216) mg capsule 1 cap PO DAILY cholecalciferol (vitamin D3) [Vitamin D3] 25 mcg (1,000 unit) tablet 25 mcg PO DAILY Held etodolac 400 mg tablet 400 mg PO BID Hold Instructions: May resume after completion of blood thinner if needed methotrexate sodium 15 mg tablet 25 mg PO QWEEK Hold Instructions: Resume on 03/16/25. Rx Instructions: 8 tablets every Saturday acetaminophen [8 Hour Pain Reliever] 650 mg tablet extended release 1,300 mg PO Q12H PRN (Reason: pain) Hold Instructions: Duplicate Referrals / Follow Up: Vinh Aguilar MD [Primary Care Provider] - Disposition Disposition (needs filled in before D/C Order can be placed): Home, Self Care 02/23/25 1330 Noa DUENAS CC: Dr. Vinh Aguilar MD ~ Signed [facility]05-13-2025 History and physical note Author Too [facility] Note Date/Time February 23, 2025 5:30p m [facility] Medical Records Department [address] [place] [address] History & Physical Exam 02/23/25 1109 MR#: [id number] Acct: [id number] Name: MILES TURNER Rep #:[id number] : 1965 59 From: Too Latham DO PCP: Dr. Vinh Aguilar MD Status:R [facility] Location: [place] [address] History and Physical Date of Admission: 02/23/25 [facility] Medical Records Department [address] [place] [address] History & Physical Exam 02/23/25 1020 MR#: [id number] Acct: [id number] Name: MILES TURNER Rep #: [id number] : 1965 59 From: Too Latham DO PCP: Dr. Vinh Aguilar MD Status: [facility] Location: [place] [address] History and Physical Date of Admission: 02/23/25 [facility] [address] [place] [address] [place] [address] OFFICE VISIT Date of Service: 02/08/25MR#: [id number] Acct: [id number] Name: MILES TURNER Rep #: [id number] : 1965 Provider: Dr. Too Latham DO Age/Sex: 59/M Location: [facility] Status: Signed Intake Vital Signs 11/04/2514:56 01/11/2510:47 Height 5 ft 9.5 in 5 ft 9 in Intake Visit Reasons: left hip Chief Complaint: 6 week post op left hip Accompanied by: Is patient in pain?: No Allergies No Known Allergies Allergy (Verified 02/08/25 10:52) Medications ?Medication ?Instructions ?Recorded ?Confirmed ?Type gemfibrozil 600 mg tablet 600 mg PO BIDAC 01/08/18 02/08/25 Histor y omeprazole 40 mg capsule,delayed 40 mg PO QDAY 07/27/24 02/08/25 History release valsartan 320 1 tab PO QDAY 07/27/24 02/08/25 History mg-hydrochlorothiazide 25 mg tablet acetaminophen 500 mg tablet 1,000 mg (2 x 500 mg) PO Q6H #100 02/08/25 Rx tabs etodolac 400 mg tablet 400 mg PO BID 02/08/25 02/08/25 History folic acid 1 mg tablet 1 mg PO QDAY 02/08/25 02/08/25 History methotrexate sodium 15 mg tablet 25 mg PO QWEEK 02/08/25 02/08/25 History PFSH Medical History Wears glasses Colonoscopy planned Gastric reflux History of stress test Former smoker Surgical History History of total left hip replacement Family History Mother Heart disease DiabetesFather Heart disease Social History household members: spouse Smoking Status: Former smoker alcohol intake: current alcohol intake frequency: holidays/special occasions only HPI left hip Details: This documentation accurately reflects the service provided and the decisions made by me, Dr. Too Latham, DO 02/08/25 0810. Part of today?s visit was documented by Kimberly Ariza ATC, acting as scribe. MILES TURNER is a 59 year old M here today for s/p left total hip arthroplastyDOS 12/29/2024. Patient denies any pain in the left hip and states he is doing well after surgery. He ambulates with a cane today. Patient states the right hipis bothering him and he states since surgery it has gotten worse. He states he can barely put any weight on it and physical therapy seems to be aggravating it more. He describes the pain in the groin and he will feel the pain in the back of the hip and into the lumbar spine. He denies any numbness/tingling down the leg. He had an injection with the [facility] in the hip about a year ago and he didn't get any relief from it. He denies any prior surgery to the right hip. Ortho Exam General General: Yes no acute distress and Yes well groomed Neurologic: Yes alert and Yes oriented x3 Psychologic: Yes reasonable and appropriate Right Hip Skin: Yes CDI, No Ecchymosis, No soft tissue swelling and No Erythema HIP: good sensation in lower leg No gross motor or sensory deficits Groin pain with hip range of motion He is able to ambulate with a cane IR -10 ER 10 Left Hip Skin/Wound: Yes CDI, No Ecchymosis, No soft tissue swelling and No Erythema Hip: Absent eccymosis, soft tissue swelling or erythema HIP: good sensation in lower leg Head: Normocephalic Atraumatic Chest: symmetrical rise, non-labored breathing, no audible wheeze Abdomen: no guarding, non-rigid Head: Normocephalic Atraumatic Chest: symmetrical rise, non-labored breathing, no audible wheeze Abdomen: no guarding, non-rigid Supplemental Info 02/08/2025 x-ray bilateral hips: Status post left total hip arthroplasty with good interfaces and position; right hip has severe end-stage arthrosis with flattening of the femoral head, x-ray last 12/29/2024 left total hip arthroplasty: Dr. Latham 07/27/2024 x-ray right knee: Advanced knee arthrosis there is subluxation of thetibia laterally Advanced knee arthrosis there is subluxation of the tibia laterally advanced varus deformity 07/27/2024 x-ray left knee: Advanced knee arthrosis there is subluxation of the tibia laterally advanced varus deformity 06/01/2024 x-ray pelvis: Advanced bilateral hip arthrosis [id number] with bony erosion large cystic changes of the femoral head and acetabulum Coding Level of Care Code Off vis,est,level 4 Diagnoses Avascular necrosis of right femur M87.051 Laterality: right Rheumatoid arthritis involving both hips with positive rheumatoid factor M05.751; M05.752 Rheumatoid arthritis location: hip Rheumatoid factor presence: with rheumatoid factor Laterality: bilateral Assessment and Plan Assessment and Plan (1) AVN of femur: Status: Acute Qualifiers: Laterality: right Qualified Code(s): M87.051 - Idiopathic aseptic necrosis of right femur (2) Rheumatoid arthritis: Status: Acute Qualifiers: Rheumatoid arthritis location: hip Rheumatoid factor presence: with rheumatoid factor Laterality: bilateral Qualified Code(s): M05.751 - Rheumatoid arthritis with rheumatoid factor of right hip without organ or systems involvement; M05.752 - Rheumatoid arthritis with rheumatoid factor of left hip without organ or systems involvement Orders: Orders Extremity Lower without Contra Today M16.11 - Unilateral primary osteoarthritis, right hip Referrals Physical Therapy Referral M16.11 - Unilateral primary osteoarthritis, right hip Plan Obtained and reviewed x-rays of both of the hips. Explained that his right hip does have severe arthritis and he has developed collapse of his femoral head. He would like to proceed with total hip arthroplasty of the right hip. recommend he should stop physical therapy for the left hip as it is making his right hip worse. Risks, benefits and alternatives of surgery reviewed including but not limited to bleeding, infection, nerve, foot drop, artery and/or tissue damage, fracture, VTE, leg length discrepancy, dislocation, need for hip precautions, continued pain and expected post-operative course. Patient would like to proceed with a right ANA MARIA. I did offer him a walker so that he does not fall he feels he is confident enough with a cane that he does not need it. he should not take any Etodolac or NSAIDs 7 days prior to surgery. He should also stop taking the Methotrexate 2 weeks prior to surgery as well. Due to the severity of the hip as the femoral head has collapsed we will order a stat/urgent CT scan right hip with MAKOplasty for evaluation and templating of right total hip arthroplasty. we will get him scheduled for surgery for February 23. He should avoid picking up any heavy weight and be careful when bending over. Follow up after surgery for post-op or sooner if pain, swelling, numbness or associated symptoms, or concerns develop. All questions answered. Patient in agreement of plan. I have examined the patient and the H&P has been reviewed. There are no clinicalchanges since date of exam. 02/23/25 1109 <Electronically signed by Too Latham DO> Cosigner Signature (if applicable): CC: Dr. Too Latham DO; Dr. Vinh Aguilar MD~ Signed [facility] Work Phone: 1(993) 818-446205-13-2025 History and physical note Author [facility] Note Date/Time February 23, 2025 5:30p m [facility] Medical Records Department [address] [place] [address] History & Physical Exam 02/23/25 1020 MR#: [id number] Acct: [id number] Name: MILES TURNER Rep #:[id number] : 1965 59 From: Too Latham DO PCP: Dr. Vinh Aguilar MD Status:To [facility] Location: [place] [address] History and Physical Date of Admission: 02/23/25 [facility] [address] [place] [address] [address] [place] [address] OFFICE VISIT Date of Service: 02/08/25 MR#: [id number] Acct: [id number] Name: MILES TURNER Rep #: [id number] : 1965 Provider: Dr. Too Latham DO Age/Sex: 59/M Location: [facility] Status: Signed Intake Vital Signs 11/04/2514:56 01/11/2510:47 Height 5 ft 9.5 in 5 ft 9 in Intake Visit Reasons: left hip Chief Complaint: 6 week post op left hip Accompanied by: Is patient in pain?: No Allergies No Known Allergies Allergy (Verified 02/08/25 10:52) Medications ?Medication ?Instructions ?Recorded ?Confirmed ?Type gemfibrozil 600 mg tablet 600 mg PO BIDAC 01/08/18 02/08/25 Histor y omeprazole 40 mg capsule,delayed 40 mg PO QDAY 07/27/24 02/08/25 History release valsartan 320 1 tab PO QDAY 07/27/24 02/08/25 History mg-hydrochlorothiazide 25 mg tablet acetaminophen 500 mg tablet 1,000 mg (2 x 500 mg) PO Q6H #100 02/08/25 Rx tabs etodolac 400 mg tablet 400 mg PO BID 02/08/25 02/08/25 History folic acid 1 mg tablet 1 mg PO QDAY 02/08/25 02/08/25 History methotrexate sodium 15 mg tablet 25 mg PO QWEEK 02/08/25 02/08/25 History PFSH Medical History Wears glasses Colonoscopy planned Gastric reflux History of stress test Former smoker Surgical History History of total left hip replacement Family History Mother Heart disease DiabetesFather Heart disease Social History household members: spouse Smoking Status: Former smoker alcohol intake: current alcohol intake frequency: holidays/special occasions only HPI left hip Details: This documentation accurately reflects the service provided and the decisions made by me, Dr. Too Latham, DO 02/08/25 0810. Part of today?s visit was documented by Kimberly Ariza ATC, acting as scribe. MILES TURNER is a 59 year old M here today for s/p left total hip arthroplastyDOS 12/29/2024. Patient denies any pain in the left hip and states he is doing well after surgery. He ambulates with a cane today. Patient states the right hipis bothering him and he states since surgery it has gotten worse. He states he can barely put any weight on it and physical therapy seems to be aggravating it more. He describes the pain in the groin and he will feel the pain in the back of the hip and into the lumbar spine. He denies any numbness/tingling down the leg. He had an injection with the [facility] in the hip about a year ago and he didn't get any relief from it. He denies any prior surgery to the right hip. Ortho Exam General General: Yes no acute distress and Yes well groomed Neurologic: Yes alert and Yes oriented x3 Psychologic: Yes reasonable and appropriate Right Hip Skin: Yes CDI, No Ecchymosis, No soft tissue swelling and No Erythema HIP: good sensation in lower leg No gross motor or sensory deficits Groin pain with hip range of motion He is able to ambulate with a cane IR -10 ER 10 Left Hip Skin/Wound: Yes CDI, No Ecchymosis, No soft tissue swelling and No Erythema Hip: Absent eccymosis, soft tissue swelling or erythema HIP: good sensation in lower leg Head: Normocephalic Atraumatic Chest: symmetrical rise, non-labored breathing, no audible wheeze Abdomen: no guarding, non-rigid Supplemental Info 02/08/2025 x-ray bilateral hips: Status post left total hip arthroplasty with good interfaces and position; right hip has severe end-stage arthrosis with flattening of the femoral head, x-ray last 12/29/2024 left total hip arthroplasty: Dr. Latham 07/27/2024 x-ray right knee: Advanced knee arthrosis there is subluxation of thetibia laterally Advanced knee arthrosis there is subluxation of the tibia laterally advanced varus deformity 07/27/2024 x-ray left knee: Advanced knee arthrosis there is subluxation of the tibia laterally advanced varus deformity 06/01/2024 x-ray pelvis: Advanced bilateral hip arthrosis [id number] with bony erosion large cystic changes of the femoral head and acetabulum Coding Level of Care Code Off vis,est,level 4 Diagnoses Avascular necrosis of right femur M87.051 Laterality: right Rheumatoid arthritis involving both hips with positive rheumatoid factor M05.751; M05.752 Rheumatoid arthritis location: hip Rheumatoid factor presence: with rheumatoid factor Laterality: bilateral Assessment and Plan Assessment and Plan (1) AVN of femur: Status: Acute Qualifiers: Laterality: right Qualified Code(s): M87.051 - Idiopathic aseptic necrosis of right femur (2) Rheumatoid arthritis: Status: Acute Qualifiers: Rheumatoid arthritis location: hip Rheumatoid factor presence: with rheumatoid factor Laterality: bilateral Qualified Code(s): M05.751 - Rheumatoid arthritis with rheumatoid factor of right hip without organ or systems involvement; M05.752 - Rheumatoid arthritis with rheumatoid factor of left hip without organ or systems involvement Orders: Orders Extremity Lower without Contra Today M16.11 - Unilateral primary osteoarthritis, right hip Referrals Physical Therapy Referral M16.11 - Unilateral primary osteoarthritis, right hip Plan Obtained and reviewed x-rays of both of the hips. Explained that his right hip does have severe arthritis and he has developed collapse of his femoral head. He would like to proceed with total hip arthroplasty of the right hip. recommend he should stop physical therapy for the left hip as it is making his right hip worse. Risks, benefits and alternatives of surgery reviewed including but not limited to bleeding, infection, nerve, foot drop, artery and/or tissue damage, fracture, VTE, leg length discrepancy, dislocation, need for hip precautions, continued pain and expected post-operative course. Patient would like to proceed with a right ANA MARIA. I did offer him a walker so that he does not fall he feels he is confident enough with a cane that he does not need it. he should not take any Etodolac or NSAIDs 7 days prior to surgery. He should also stop taking the Methotrexate 2 weeks prior to surgery as well. Due to the severity of the hip as the femoral head has collapsed we will order a stat/urgent CT scan right hip with MAKOplasty for evaluation and templating of right total hip arthroplasty. we will get him scheduled for surgery for February 23. He should avoid picking up any heavy weight and be careful when bending over. Follow up after surgery for post-op or sooner if pain, swelling, numbness or associated symptoms, or concerns develop. All questions answered. Patient in agreement of plan. 02/08/25 1143 <Electronically signed by Too Latham DO> Date Too Latham DO I have examined the patient and the H&P has been reviewed. There are no clinicalchanges since date of exam. 02/23/25 1020 <Electronically signed by Too Latham DO> Cosigner Signature (if applicable): CC: Dr. Too Latham DO; Dr. Vinh Aguilar MD~ Signed [facility] Work Phone: [phone]) [phone] Consult note Author Vinicius Carlson [facility] Note Date/Time February 23, 2025 9:51a m [facility] Medical Records Department [address] [place] [address] Pre-Anesthesia Evaluation 02/23/25 0943 MR#: [id number] Acct: [id number] Name: MILES TURNER Rep #:[id number] : 1965 59 From: Vinicius Fischer PCP: Dr. Vinh Aguilar MD Status:R [facility] Y Race: C Location: [place] [address] ASA Classification* ASA Classification ASA Classification: 2 Assessment & Plan Anesthesia* Anesthesia Assessment Anesthesia Assessment: Discussed sedation and/or anesthesia options, risks, benefits, and alternatives with patient/parents/legal guardian/POA. Questions invited. The patient/parents/legal guardian/POA seems to understand and agrees to proceedwith anesthesia plan. Reviewed the physical assessment, medical history, allergy history and patient home medications list prior to surgery/procedure/anesthetic and documented any changes. Performed airway and anesthesia risk assessments. Anesthesia Type Anesthesia Type: MAC and Spinal History Source History Obtained from:: Patient and Chart Anesthesia Focused Assessment* Temperature: 98.1 F Pulse Rate: 75 Blood Pressure: 133/75 Respiratory Rate: 18 Pulse Ox: 98 Oxygen Delivery Method: Room Air Airway Assessment Mouth opens: >3 cm Mallampati Score: III Focused Labs Anesthesia Preop lab: CBC WBC 4.7 K/mm3 (4.4-11.0) 02/09/25 08:41 02/09/25 RBC 4.01 M/mm3 (4.6-6.2) L 02/09/25 08:41 02/09/25 Hgb 13.8 g/dL (13.0-16.5) 02/09/25 08:41 02/09/25 Hct 39.9 % (40-54) L 02/09/25 08:41 02/09/25 Plt Count 245 K/mm3 (150-450) 02/09/25 08:41 02/09/25 CHEMISTRY Potassium 4.5 mmol/L (3.3-5.1) 02/09/25 08:41 02/09/25 Sodium 140 mmol/L (133-145) 02/09/25 08:41 02/09/25 Magnesium 2.2 mg/dL (1.5-2.2) 12/21/24 07:55 12/21/24 BUN 21 mg/dL (4-19) H 02/09/25 08:41 02/09/25 Creatinine 0.66 mg/dL (0.70-1.20) L 02/09/25 08:41 Glucose 96 mg/dL (70-99) 02/09/25 08:41 02/09/25 POC Glucose 82 mg/dL (74-106) 12/29/24 05:53 12/29/24 COAG PT 12.8 SECONDS (11.7-14.9) 12/21/24 07:55 Pre-Assessment Diagnosis/Proposed Procedure Planned Operative Procedure(s): (R) Right Total Hip Replacement Robotic Arm Assisted, ERAS Anesthesia History Anesthesia History - batch room technician: Anesthesia History - batch room technician Hx Hospitalization No 02/10/25 09:12 Any Problems With Anesthesia No 02/10/25 09:12 Cholinesterase deficiency No 02/10/25 09:12 You/Your Family Experience No 02/10/25 09:12 fever (hyperthermia) with Relationship Recent Exposure to Contagious No 02/23/25 08:40 Disease Does patient have nerve No 02/10/25 09:12 stimulator Patient instructed to have device shut off --Does patient have Pacemaker No 02/23/25 08:40 or ICD? When Was Last Pacemaker Check QUESTION #4 FULL TEXT: You/Your Family Experience fever (hyperthermia) with Anesthesia Last Oral Intake Last Oral intake: Last Oral Intake NPO since 06:00 02/23/25 08:40 Meds taken in AM with sips of Yes 02/23/25 08:40 water? Meds patient instructed to omeprazole 02/23/25 08:40 take am of surgery PONV PONV - batch room technician: PONV - batch room technician Female No 02/10/25 09:12 HX of Motion Sickness No 02/10/25 09:12 HX of N/V After Surgery No 02/10/25 09:12 Non-Smoker Yes 02/10/25 09:12 Duration of Surgery greater Yes 02/10/25 09:12 than 60 minutes Number of Risk Factors 2 02/10/25 09:12 PONV Score Moderate Risk 02/10/25 09:12 Height & Weight Height & Weight: Anesthesia: Height & Weight Height 5 ft 9 in 02/23/25 08:40 Weight: 117.6 kg 02/23/25 08:40 Body Mass Index (BMI) 38.2 02/23/25 08:40 Respiratory Assessment Respiratory Assessment - batch room technician: Respiratory Tract Infection Hx - batch room technician Hx Respiratory Tract Infection No 02/10/25 09:12 STOP Sleep Apnea STOP Sleep Apnea - batch room technician: STOP Sleep Apnea - batch room technician Hx Hypertension Yes: CONTROLLED ON MED 02/10/25 09:12 Hx Sleep Apnea No 02/10/25 09:12 CPAP BIPAP Do you snore loudly (louder Yes 02/10/25 09:12 than talking or can be heard Do you often feel tired/ No 02/10/25 09:12 fatigued/ sleepy during daytime? Has anyone observed you stop No 02/10/25 09:12 breathing during sleep? STOP Results Positive 02/10/25 09:12 QUESTION #5 FULL TEXT : Do you snore loudly (louder than talking or can be heard through closed doors)? 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 Specify any problems Hx of Preganancy in last 3 N/A 02/10/25 09:12 Months Nurse Filling Out Transfusion VCHRISTIN 02/10/25 09:12 & Questions: Date: 02/10/25 02/10/25 09:12 Time: 09:14 02/10/25 09:12 Patient unable to answer at this time (ie. confused, unrespo /Reproduction History /Reproductive History - batch room technician: /Reproductive Hx- batch room technician Hx Now Gestational Age (in weeks): EDC: Hx Hx Para Hx Section SAB Active Medications Active Medications: Current Medications Generic Name Dose Route Start Last Admin Trade Name Freq PRN Reason Stop Dose Admin Acetaminophen 1,000 mg 02/23/25 10:30 02/23/25 09:04 Acetaminophen 500 Mg Tablet PO 02/23/25 10:31 1,000 mg PREOP ONE Administration Celecoxib 400 mg 02/23/25 10:30 02/23/25 09:05 Celecoxib 200 Mg Capsule PO 02/23/25 10:31 400 mg PREOP ONE Administration Dexamethasone Sodium Phosphate 10 mg 02/23/25 10:30 Dexamethasone 10 Mg/Ml Vial IV 02/23/25 10:31 INTRAOP ONE Gabapentin 600 mg 02/23/25 10:30 02/23/25 09:04 Gabapentin 600 Mg Tablet PO 02/23/25 10:31 600 mg PREOP ONE Administration Lactated Ringer's 1,000 mls @ 999 mls/hr 02/23/25 10:30 02/23/25 08:45 IV 02/23/25 11:30 999 mls/hr .Q1H1M STEVEN Administration Cefazolin Sodium 2 gm/ Sodium 110 mls @ 150 mls/hr 02/23/25 10:30 Chloride IV 02/23/25 11:13 INTRAOP ONE Tranexamic Acid 2,000 mg/ 120 mls @ 660 mls/hr 02/23/25 10:30 Sodium Chloride IV 02/23/25 10:40 INTRAOP ONE Lactated Ringer's 1,000 mls @ 125 mls/hr 02/23/25 10:30 IV 02/23/25 18:29 .Q8H STEVEN Magnesium Sulfate 1 gm/ 102 mls @ 408 mls/hr 02/23/25 10:30 02/23/25 08:50 Dextrose IV 02/23/25 10:44 408 mls/hr INTRAOP ONE Administration Insulin Human Lispro 1 - 6 unit 02/23/25 10:30 Insulin Lispro 100 Unit/Ml Insuln.Pen SC Q4H PRN PRN BG>/= 180, SEE PROTOCOL Protocol Scopolamine HBr 1 patch 02/23/25 10:30 02/23/25 09:05 Scopolamine 1mg/72hr Patch TD 02/23/25 10:31 1 mg PREOP ONE Administration PFSH Medical History Shortness of breath on exertion Hypertension Wears glasses Colonoscopy planned Gastric reflux History of stress test Former smoker Home Medications ?Medication ?Instructions ?Recorded ?Last Taken ?Type gemfibrozil 600 mg tablet 600 mg PO BIDAC 01/08/18 19:00 History omeprazole 40 mg capsule,delayed 40 mg PO QDAY 4 02/23/25 06:00 History release valsartan 320 1 tab PO QDAY 07/27/2412/29 03:30 History mg-hydrochlorothiazide 25 mg tablet etodolac 400 mg tablet 400 mg PO BID 02/08/25 Unkno wn History folic acid 1 mg tablet 1 mg PO BID 02/08/25 Unknown History methotrexate sodium 15 mg tablet 25 mg PO QWEEK 02/06/25 History acetaminophen 650 mg 1,300 mg PO Q12H PRN pain Unknown History tablet,extended release (8 Hour Pain Reliever) cholecalciferol (vitamin D3) 25 25 mcg PO DAILY Unknown History mcg (1,000 unit) tablet (Vitamin D3) omega 7-agy-dyy-fish oil 1,200 mg 1 cap PO DAILY 02/1002/16/25 History (144 mg-216 mg) capsule (Fish Oil) Allergy/AdvReac Type Severity Reaction Status Date / Time No Known Allergies Allergy Verified 02/23/25 08:55 Family History Mother Heart disease Diabetes Father Heart disease Surgical History (Updated 02/10/25 @ 09:12 by Reshma Byrd) History of total left hip replacement Social History household members: spouse Smoking Status: Former smoker alcohol intake: current alcohol intake frequency: holidays/special occasions only Addt'l Information Additional Findings: EKG NSR Review of Systems (Anesthesia) ROS Narrative System reviewed and no additional complaints, except as documented. Physical Exam Const alert and oriented x3 Nutritional Appearance: obese Resp normal respiratory effort and normal air movement Auscultation: clear to auscultation bilaterally Cardio regular rate Neuro oriented x3 and moves all extremities 02/23/25 0951 <Electronically signed by Vinicius Carlson MD> Date _ Vinicius Carlson MD Cosigner Signature: Date CC: ~ Signed [facility] Work Phone: 1(938) 714-735605-13-2025 [facility] Medical Records Department [address] [place] [address] History Physical Exam 02/23/25 1109 MR#: [id number] Acct: [id number] Name: YUEMILES BRENDAN Rep #: [id number] : 1965 59 From: Too Latham DO PCP: Dr. Vinh Aguilar MD Status:[facility] [place] Location: [place] [address]-1 History and Physical Date of Admission: 02/23/25 [facility] Medical Records Department [address] [place] [address] History Physical Exam 02/23/25 1020 MR#: [id number] Acct: [id number] Name: MILES TURNER Rep #: [id number] : 1965 59 From: Too Latham DO PCP: Dr. Vinh Aguilar MD Status: [facility] [place] Location: [facility] History and Physical Date of Admission: 02/23/25 [facility] [address] [place] [address] OFFICE VISIT Date of Service: 02/08/25#: [id number] Acct: [id number] Name: MILES TURNER Rep #: [id number] : 1965 Provider: Dr. Too Latham DO Age/Sex: 59/M Location[place] [facility] Status: Signed Intake Vital Signs 11/04/2514:56 01/11/2510:47 Height 5 ft 9.5 in 5 ft 9 in Intake Visit Reasons: left hip Chief Complaint: 6 week post op left hip Accompanied by: Is patient in pain?: No Allergies No Known Allergies Allergy (Verified 02/08/25 10:52) Medications ???Medication ???Instructions ???Recorded ???Confirmed ???Type gemfibrozil 600 mg tablet 600 mg PO BIDAC 01/08/18 02/08/25 History omeprazole 40 mg capsule,delayed 40 mg PO QDAY 07/27/24 02/08/25 History release valsartan 320 1 tab PO QDAY 07/27/24 02/08/25 History mg-hydrochlorothiazide 25 mg tablet acetaminophen 500 mg tablet 1,000 mg (2 x 500 mg) PO Q6H #100 12/29/24 5 Rx tabs etodolac 400 mg tablet 400 mg PO BID 02/08/25 02/08/25 History folic acid 1 mg tablet 1 mg PO QDAY 02/08/25 02/08/25 History methotrexate sodium 15 mg tablet 25 mg PO QWEEK 02/08/25 02/08/25 History PFSH Medical History Wears glasses Colonoscopy planned Gastric reflux History of stress test Former smoker Surgical History History of total left hip replacement Family History Mother Heart disease DiabetesFather Heart disease Social History household members: spouse Smoking Status: Former smoker alcohol intake: current alcohol intake frequency: holidays/special occasions only HPI left hip Details: This documentation accurately reflects the service provided and the decisions made by me, Dr. Too Latham, DO 02/08/25 0810. Part of today???s visit was documented by Kimberly Ariza ATC, acting as scribe. MILES TURNER is a 59 year old M here today for s/p left total hip arthroplasty DOS 12/29/2024. Patient denies any pain in the left hip and states he is doing well after surgery. He ambulates with a cane today. Patient states the right hip is bothering him and he states since surgery it has gotten worse. He states he can barely put any weight on it and physical therapy seems to be aggravating it more. He describes the pain in the groin and he will feel the pain in the back of the hip and into the lumbar spine. He denies any numbness/tingling down the leg. He had an injection with the [facility] in the hip about a year ago and he didn't get any relief from it. He denies any prior surgery to the right hip. Ortho Exam General General: Yes no acute distress and Yes well groomed Neurologic: Yes alert and Yes oriented x3 Psychologic: Yes reasonable and appropriate Right Hip Skin: Yes CDI, No Ecchymosis, No soft tissue swelling and No Erythema HIP: good sensation in lower leg No gross motor or sensory deficits Groin pain with hip range of motion He is able to ambulate with a cane IR -10 ER 10 Left Hip Skin/Wound: Yes CDI, No Ecchymosis, No soft tissue swelling and No Erythema Hip: Absent eccymosis, soft tissue swelling or erythema HIP: good sensation in lower leg Head: Normocephalic Atraumatic Chest: symmetrical rise, non-labored breathing, no audible wheeze Abdomen: no guarding, non-rigid Head: Normocephalic Atraumatic Chest: symmetrical rise, non-labored breathing, no audible wheeze Abdomen: no guarding, non-rigid Supplemental Info 02/08/2025 x-ray bilateral hips: Status post left total hip arthroplasty with good interfaces and position; ri (more content not included)...[facility]05-13-2025 [facility] Medical Records Department [address] [place] [address] [place] [address] History Physical Exam 02/23/25 1020 MR#: [id number] Acct: [id number] Name: MILES TURNER Rep #: [id number] : 1965 59 From: Too Latham DO PCP: Dr. Vinh Aguilar MD Status:[facility] Location: [place] [address] History and Physical Date of Admission: 02/23/25 [facility] [place] [address] OFFICE VISIT Date of Service: 02/08/25 MR#: [id number] Acct: [id number] Name: MILES TURNER Rep #: [id number] : 1965 Provider: Dr. Too Latham DO Age/Sex: 59/M Location: [facility] [place] Status: Signed Intake Vital Signs 11/04/2514:56 01/11/2510:47 Height 5 ft 9.5 in 5 ft 9 in Intake Visit Reasons: left hip Chief Complaint: 6 week post op left hip Accompanied by: Is patient in pain?: No Allergies No Known Allergies Allergy (Verified 02/08/25 10:52) Medications ???Medication ???Instructions ???Recorded ???Confirmed ???Type gemfibrozil 600 mg tablet 600 mg PO BIDAC 01/08/18 02/08/25 History omeprazole 40 mg capsule,delayed 40 mg PO QDAY 07/27/24 02/08/25 History release valsartan 320 1 tab PO QDAY 07/27/24 02/08/25 History mg-hydrochlorothiazide 25 mg tablet acetaminophen 500 mg tablet 1,000 mg (2 x 500 mg) PO Q6H #100 12/29/24 5 Rx tabs etodolac 400 mg tablet 400 mg PO BID 02/08/25 02/08/25 History folic acid 1 mg tablet 1 mg PO QDAY 02/08/25 02/08/25 History methotrexate sodium 15 mg tablet 25 mg PO QWEEK 02/08/25 02/08/25 History PFSH Medical History Wears glasses Colonoscopy planned Gastric reflux History of stress test Former smoker Surgical History History of total left hip replacement Family History Mother Heart disease DiabetesFather Heart disease Social History household members: spouse Smoking Status: Former smoker alcohol intake: current alcohol intake frequency: holidays/special occasions only HPI left hip Details: This documentation accurately reflects the service provided and the decisions made by me, Dr. Too Latham, DO 02/08/25 0810. Part of today???s visit was documented by Kimberly Ariza ATC, acting as scribe. MILES TURNER is a 59 year old M here today for s/p left total hip arthroplasty DOS 12/29/2024. Patient denies any pain in the left hip and states he is doing well after surgery. He ambulates with a cane today. Patient states the right hip is bothering him and he states since surgery it has gotten worse. He states he can barely put any weight on it and physical therapy seems to be aggravating it more. He describes the pain in the groin and he will feel the pain in the back of the hip and into the lumbar spine. He denies any numbness/tingling down the leg. He had an injection with the [facility] in the hip about a year ago and he didn't get any relief from it. He denies any prior surgery to the right hip. Ortho Exam General General: Yes no acute distress and Yes well groomed Neurologic: Yes alert and Yes oriented x3 Psychologic: Yes reasonable and appropriate Right Hip Skin: Yes CDI, No Ecchymosis, No soft tissue swelling and No Erythema HIP: good sensation in lower leg No gross motor or sensory deficits Groin pain with hip range of motion He is able to ambulate with a cane IR -10 ER 10 Left Hip Skin/Wound: Yes CDI, No Ecchymosis, No soft tissue swelling and No Erythema Hip: Absent eccymosis, soft tissue swelling or erythema HIP: good sensation in lower leg Head: Normocephalic Atraumatic Chest: symmetrical rise, non-labored breathing, no audible wheeze Abdomen: no guarding, non-rigid Supplemental Info 02/08/2025 x-ray bilateral hips: Status post left total hip arthroplasty with good interfaces and position; right hip has severe end-stage arthrosis with flattening of the femoral head, x-ray last 12/29/2024 left total hip arthroplasty: Dr. Latham 07/27/2024 x-ray right knee: Advanced knee arthrosis there is subluxation of the tibia laterally Advanced knee arthrosis there is subluxation of the tibia laterally advanced varus deformity 07/27/2024 x-ray left knee: Advanced knee arthrosis there is subluxation of the tibia laterally advanced varus deformity 06/01/2024 x-ray pelvis: Advanced bilateral hip arthrosis [id number] with bony erosion large cystic changes of the femoral head and acetabulum Coding Level of Care Code (more content not included)...[facility]05-13-2025 Consult note [facility] Medical Records Department [address] [place] [address] Pre-Anesthesia Evaluation 02/23/25 0943 MR#: [id number] Acct: [id number] Name: MILES TURNER Rep #:[id number] : 1965 59 From: Vinicius Fischer PCP: Dr. Vinh Aguilar MD Status:R [facility] Y Race: C Location: [place] [address] ASA Classification* ASA Classification ASA Classification: 2 Assessment & Plan Anesthesia* Anesthesia Assessment Anesthesia Assessment: Discussed sedation and/or anesthesia options, risks, benefits, and alternatives with patient/parents/legal guardian/POA. Questions invited. The patient/parents/legal guardian/POA seems to understand and agrees to proceedwith anesthesia plan. Reviewed the physical assessment, medical history, allergy history and patient home medications list prior to surgery/procedure/anesthetic and documented any changes. Performed airway and anesthesia risk assessments. Anesthesia Type Anesthesia Type: MAC and Spinal History Source History Obtained from:: Patient and Chart Anesthesia Focused Assessment* Temperature: 98.1 F Pulse Rate: 75 Blood Pressure: 133/75 Respiratory Rate: 18 Pulse Ox: 98 Oxygen Delivery Method: Room Air Airway Assessment Mouth opens: >3 cm Mallampati Score: III Focused Labs Anesthesia Preop lab: CBC WBC 4.7 K/mm3 (4.4-11.0) 02/09/25 08:41 02/09/25 RBC 4.01 M/mm3 (4.6-6.2) L 02/09/25 08:41 02/09/25 Hgb 13.8 g/dL (13.0-16.5) 02/09/25 08:41 02/09/25 Hct 39.9 % (40-54) L 02/09/25 08:41 02/09/25 Plt Count 245 K/mm3 (150-450) 02/09/25 08:41 02/09/25 CHEMISTRY Potassium 4.5 mmol/L (3.3-5.1) 02/09/25 08:41 02/09/25 Sodium 140 mmol/L (133-145) 02/09/25 08:41 02/09/25 Magnesium 2.2 mg/dL (1.5-2.2) 12/21/24 07:55 12/21/24 BUN 21 mg/dL (4-19) H 02/09/25 08:41 02/09/25 Creatinine 0.66 mg/dL (0.70-1.20) L 02/09/25 08:41 Glucose 96 mg/dL (70-99) 02/09/25 08:41 02/09/25 POC Glucose 82 mg/dL (74-106) 12/29/24 05:53 12/29/24 COAG PT 12.8 SECONDS (11.7-14.9) 12/21/24 07:55 Pre-Assessment Diagnosis/Proposed Procedure Planned Operative Procedure(s): (R) Right Total Hip Replacement Robotic Arm Assisted, ERAS Anesthesia History Anesthesia History - batch room technician: Anesthesia History - batch room technician Hx Hospitalization No 02/10/25 09:12 Any Problems With Anesthesia No 02/10/25 09:12 Cholinesterase deficiency No 02/10/25 09:12 You/Your Family Experience No 02/10/25 09:12 fever (hyperthermia) with Relationship Recent Exposure to Contagious No 02/23/25 08:40 Disease Does patient have nerve No 02/10/25 09:12 stimulator Patient instructed to have device shut off --Does patient have Pacemaker No 02/23/25 08:40 or ICD? When Was Last Pacemaker Check QUESTION #4 FULL TEXT: You/Your Family Experience fever (hyperthermia) with Anesthesia Last Oral Intake Last Oral intake: Last Oral Intake NPO since 06:00 02/23/25 08:40 Meds taken in AM with sips of Yes 02/23/25 08:40 water? Meds patient instructed to omeprazole 02/23/25 08:40 take am of surgery PONV PONV - batch room technician: PONV - batch room technician Female No 02/10/25 09:12 HX of Motion Sickness No 02/10/25 09:12 HX of N/V After Surgery No 02/10/25 09:12 Non-Smoker Yes 02/10/25 09:12 Duration of Surgery greater Yes 02/10/25 09:12 than 60 minutes Number of Risk Factors 2 02/10/25 09:12 PONV Score Moderate Risk 02/10/25 09:12 Height & Weight Height & Weight: Anesthesia: Height & Weight Height 5 ft 9 in 02/23/25 08:40 Weight: 117.6 kg 02/23/25 08:40 Body Mass Index (BMI) 38.2 02/23/25 08:40 Respiratory Assessment Respiratory Assessment - batch room technician: Respiratory Tract Infection Hx - batch room technician Hx Respiratory Tract Infection No 02/10/25 09:12 STOP Sleep Apnea STOP Sleep Apnea - batch room technician: STOP Sleep Apnea - batch room technician Hx Hypertension Yes: CONTROLLED ON MED 02/10/25 09:12 Hx Sleep Apnea No 02/10/25 09:12 CPAP BIPAP Do you snore loudly (louder Yes 02/10/25 09:12 than talking or can be heard Do you often feel tired/ No 02/10/25 09:12 fatigued/ sleepy during daytime? Has anyone observed you stop No 02/10/25 09:12 breathing during sleep? STOP Results Positive 02/10/25 09:12 QUESTION #5 FULL TEXT : Do you snore loudly (louder than talking or can be heard through closeddoors)? 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 Specify any problems Hx of Preganancy in last 3 N/A 02/10/25 09:12 Months Nurse Filling Out Transfusion VCHRISTIN 02/10/25 09:12 & Questions: Date: 02/10/25 02/10/25 09:12 Time: 09:14 02/10/25 09:12 Patient unable to answer at this time (ie. confused, unrespo /Reproduction History /Reproductive History - batch room technician: /Reproductive Hx- batch room technician Hx Now Gestational Age (in weeks): EDC: Hx Hx Para Hx Section SAB Active Medications Active Medications: Current Medications Generic Name Dose Route Start Last Admin Trade Name Freq PRN Reason Stop Dose Admin Acetaminophen 1,000 mg 02/23/25 10:30 02/23/25 09:04 Acetaminophen 500 Mg Tablet PO 02/23/25 10:31 1,000 mg PREOP ONE Administration Celecoxib 400 mg 02/23/25 10:30 02/23/25 09:05 Celecoxib 200 Mg Capsule PO 02/23/25 10:31 400 mg PREOP ONE Administration Dexamethasone Sodium Phosphate 10 mg 02/23/25 10:30 Dexamethasone 10 Mg/Ml Vial IV 02/23/25 10:31 INTRAOP ONE Gabapentin 600 mg 02/23/25 10:30 02/23/25 09:04 Gabapentin 600 Mg Tablet PO 02/23/25 10:31 600 mg PREOP ONE Administration Lactated Ringer's 1,000 mls @ 999 mls/hr 02/23/25 10:30 02/23/25 08:45 IV 02/23/25 11:30 999 mls/hr .Q1H1M STEVEN Administration Cefazolin Sodium 2 gm/ Sodium 110 mls @ 150 mls/hr 02/23/25 10:30 Chloride IV 02/23/25 11:13 INTRAOP ONE Tranexamic Acid 2,000 mg/ 120 mls @ 660 mls/hr 02/23/25 10:30 Sodium Chloride IV 02/23/25 10:40 INTRAOP ONE Lactated Ringer's 1,000 mls @ 125 mls/hr 02/23/25 10:30 IV 02/23/25 18:29 .Q8H STEVEN Magnesium Sulfate 1 gm/ 102 mls @ 408 mls/hr 02/23/25 10:30 02/23/25 08:50 Dextrose IV 02/23/25 10:44 408 mls/hr INTRAOP ONE Administration Insulin Human Lispro 1 - 6 unit 02/23/25 10:30 Insulin Lispro 100 Unit/Ml Insuln.Pen SC Q4H PRN PRN BG>/= 180, SEE PROTOCOL Protocol Scopolamine HBr 1 patch 02/23/25 10:30 02/23/25 09:05 Scopolamine 1mg/72hr Patch TD 02/23/25 10:31 1 mg PREOP ONE Administration PFSH Medical History Shortness of breath on exertion Hypertension Wears glasses Colonoscopy planned Gastric reflux History of stress test Former smoker Home Medications ?Medication ?Instructions ?Recorded ?Last Taken ?Type gemfibrozil 600 mg tablet 600 mg PO BIDAC 01/08/18 19:00 History omeprazole 40 mg capsule,delayed 40 mg PO QDAY 4 02/23/25 06:00 History release valsartan 320 1 tab PO QDAY 07/27/2412/29 03:30 History mg-hydrochlorothiazide 25 mg tablet etodolac 400 mg tablet 400 mg PO BID 02/08/25 Unkno wn History folic acid 1 mg tablet 1 mg PO BID 02/08/25 Unknown History methotrexate sodium 15 mg tablet 25 mg PO QWEEK 02/06/25 History acetaminophen 650 mg 1,300 mg PO Q12H PRN pain Unknown History tablet,extended release (8 Hour Pain Reliever) cholecalciferol (vitamin D3) 25 25 mcg PO DAILY Unknown History mcg (1,000 unit) tablet (Vitamin D3) omega 8-lsg-rxe-fish oil 1,200 mg 1 cap PO DAILY 02/1002/16/25 History (144 mg-216 mg) capsule (Fish Oil) Allergy/AdvReac Type Severity Reaction Status Date / Time No Known Allergies Allergy Verified 02/23/25 08:55 Family History Mother Heart disease Diabetes Father Heart disease Surgical History (Updated 02/10/25 @ 09:12 by Reshma Byrd) History of total left hip replacement Social History household members: spouse Smoking Status: Former smoker alcohol intake: current alcohol intake frequency: holidays/special occasions only Addt'l Information Additional Findings: EKG NSR Review of Systems (Anesthesia) ROS Narrative System reviewed and no additional complaints, except as documented. Physical Exam Const alert and oriented x3 Nutritional Appearance: obese Resp normal respiratory effort and normal air movement Auscultation: clear to auscultation bilaterally Cardio regular rate Neuro oriented x3 and moves all extremities 02/23/25 0951 MD> Date _ Vinicius Carlson MD Cosigner Signature: Date CC: ~ Signed [facility]05-01-2025 Radiology Diagnostic study note [facility] Imaging Services [address] [place] [address] Extremity Lower without Contra MR#: [id number] Acct: [id number] Name: MILES TURNER Rep #: [id number] : 1965 M 59 From: Mariel Gomez MD PCP: Dr. Vinh Aguilar MD Status: R EG CLI Study:Extremity Lower without Contra Date of Exam: 02/11/25 Exam# [id number] Ordering Dr: Too Latham DO PROCEDURE: EXTREMITY LOWER WITHOUT CONTRA 02/11/2025 REASON FOR EXAM: TEMPLATING FOR RIGHT ANA MARIA TECHNIQUE: Axial CT images of the right hip obtained without intravenous contrast. Coronal and Sagittal reconstruction series were provided. CONTRAST: None One or more dose reduction techniques were used (e.g., Automated exposure control, adjustment of the mA and/or kV according to patient size, use of iterative reconstruction technique). RADIATION DOSE SUMMARY: DLP: 800.18 MGycm COMPARISON: December 11, 2024 FINDINGS: Bones: There is a 1.7 x 1.1 cm dense blastic focus in the superior aspect of theright iliac, image 61/615, unchanged. There is a 0.7 x 0.3 cm blastic lesion in the right iliac at the SI joint, image 87/615, unchanged. There marcela 1 cm blastic lesion in the lateral aspect of the right iliac, image 73/615, unchanged. There is a total hip prosthesis in position on the left, new compared to the prior. There is severe osteoarthritis of the right hip with superolateral migrationof the femoral head and collapse of the articular surface, with subcortical cyst formation and marginal osteophytes. No acute fracture is identified. There is grade 1 spondylolisthesis at L4-5, 0.5 cm. Soft Tissues: Atherosclerotic calcifications are noted. There is a 3.7 x 2.0 cmuncomplicated fat containing right inguinal hernia, unchanged. Prostate calcifications are visible. CT/Extremity Lower without Contra IMPRESSION: There is a 1.7 x 1.1 cm dense blastic focus in the superior aspect of the right iliac, image 61/615, unchanged. There is a 0.7 x 0.3 cm blastic lesion in the right iliac at the SI joint, image 87/615, unchanged. There is a 1 cm blastic lesion in the lateral aspect of the right iliac, image 73/615, unchanged. Consider whole-body bone scan correlation. There is a total hip prosthesis in position on the left, new compared to the prior. There is grade 1 spondylolisthesis at L4-5, 0.5 cm. There is severe osteoarthritis of the right hip with superolateral migration of the femoral head and collapse of the articular surface, with subcortical cyst formation and marginal osteophytes. Reading Location: [facility] CC: Dr. Too Latham DO; Dr. Vinh Aguilar MD ~ Car Checker: Signed [facility]03-31-2025 Evaluation note* Diagnosis Onset Date Resolution Status Admit Date Orthopedic aftercare acute [place] h 2024 10:36am AVN of femur acute February 08, 2025 10:15am Rheumatoid arthritis acute Apri l 2024 10:15am Other acute postprocedural pain acut e February 23, 2025 8:02am Orthopedic aftercare acute March 10, 2025 9:02am Orthopedic aftercare acute April 12, 2025 8:04am [facility] [employer] Work Phone: 1(422) 930-763103-31-2025 Evaluation note* Diagnosis Onset Date Resolution Status Admit Date Orthopedic aftercare acute [place] h 2024 10:36am AVN of femur acute February 08, 2025 10:15am Rheumatoid arthritis acute A[facility] l 2024 10:15am Other acute postprocedural pain acut e February 23, 2025 8:02am Orthopedic aftercare acute March 10, 2025 9:02am Orthopedic aftercare acute April 12, 2025 8:04am Bilateral primary osteoarthr itis of knee acute April 26, 2025 8:08am [facility] [employer] Work Phone: 1(374) 543-246103-31-2025 Evaluation note* Diagnosis Onset Date Resolution Status Admit Date Orthopedic aftercare acute [place] h 2024 10:36am AVN of femur acute February 08, 2025 10:15am Rheumatoid arthritis acute Apri l 2024 10:15am Other acute postprocedural pain acut e February 23, 2025 8:02am Orthopedic aftercare acute March 10, 2025 9:02am Orthopedic aftercare acute April 12, 2025 8:04am Bilateral primary osteoarthr itis of knee acute April 26, 2025 8:08am Bilateral primary osteoarthr itis of knee acute May 03, 2025 8:36am Bilateral primary osteoarthr itis of knee acute May 10, 2025 8:52am [facility] [employer] Work Phone: 1(840) 290-316003-18-2025 Consult note [facility] Medical Records Department [address] [place] [address] Anesthesia Postop Eval II 12/29/24 1111 MR#: [id number] Acct: [id number] Name: MILES TURNER Rep #:[id number] : 1965 59 From: Bobo Diamond MD PCP: Dr. Vinh Aguilar MD Status:R EG SDC Y Race: C Location: [facility]01-1 Anesthesia Postop Eval I Sum Postop Eval Completion status Anesthesia document: Postop Eval 1 completed: Yes Anesthesia Postop Eval I Summary Anesthesia Postop Eval I Summary: Anesthesia Postop Eval I: Assessment Summary Airway patent Yes 12/29/24 09:59 [email or web address] [email or web address] Spontaneous unlabored Yes 12/29/24 09:59 [email or web address] [email or web address] respirations Mental status Awake 12/29/24 09:59 [email or web address] [email or web address] nausea No 12/29/24 09:59 [email or web address] [email or web address] Vomiting No 12/29/24 09:59 [email or web address] Anesthesia Postop Eval I: Fluid Summary Crystalloid volume administer 2,600 12/29/24 09:59 [email or web address] [email or web address] (ml) Colloids volume administered ( ml) Blood Product volume administered (ml) Total IV fluid infused 2,600 12/29/24 09:59 [email or web address] [email or web address] Anesthesia Postop Eval I: Summary Notes Anesthesia Complication No 12/29/24 09:59 [email or web address] Anesthesia Complication Comment: Post-operative progress note Anesthesia: Postop Eval II Evaluation Mental status: Awake Pain Level: 0 nausea: No Vomiting: No Complications Anesthesia Complication: No 12/29/24 1111 MD> Date _ Bobo Diamond MD Cosigner Signature: Date CC: ~ Signed [facility]03-18-2025 Consult note Author Bobo Diamond [facility] Note Date/Time December 29, 2024 2:[address] [facility] Medical Records Department [address] [place] [address] Anesthesia Postop Eval II 12/29/24 1111 MR#: [id number] Acct: [id number] Name: MILES TURNER Rep #:[id number] : 1965 59 From: Bobo Diamond MD PCP: Dr. Vinh Aguilar MD Status:R EG SDC Y Race: C Location: [facility]01- Anesthesia Postop Eval I Sum Postop Eval Completion status Anesthesia document: Postop Eval 1 completed: Yes Anesthesia Postop Eval I Summary Anesthesia Postop Eval I Summary: Anesthesia Postop Eval I: Assessment Summary Airway patent Yes 12/29/24 09:59 [email or web address] [email or web address] Spontaneous unlabored Yes 12/29/24 09:59 [email or web address] [email or web address] respirations Mental status Awake 12/29/24 09:59 [email or web address] [email or web address] nausea No 12/29/24 09:59 [email or web address] [email or web address] Vomiting No 12/29/24 09:59 [email or web address] Anesthesia Postop Eval I: Fluid Summary Crystalloid volume administer 2,600 12/29/24 09:59 [email or web address] [email or web address] (ml) Colloids volume administered ( ml) Blood Product volume administered (ml) Total IV fluid infused 2,600 12/29/24 09:59 [email or web address] [email or web address] Anesthesia Postop Eval I: Summary Notes Anesthesia Complication No 12/29/24 09:59 [email or web address] Anesthesia Complication Comment: Post-operative progress note Anesthesia: Postop Eval II Evaluation Mental status: Awake Pain Level: 0 nausea: No Vomiting: No Complications Anesthesia Complication: No 12/29/24 1111 <Electronically signed by Bobo Diamond MD> Date _ Bobo Diamond MD Cosigner Signature: Date CC: ~ Signed [facility] Work Phone: 1(433) 468-554703-18-2025 Discharge summary Author Too Latham [facility] Note Date/Time December 29, 2024 10: 15am [facility] Medical Records Department [address] [place] [address] Instructions for Home/Discharge Instructions 12/29/24 1006 MR#: [id number] Acct: [id number] Name: MILES TURNER Rep #:[id number] : 1965 59 From: Too Latham DO PCP: Dr. Vinh Aguilar MD Status:R [facility] Discharge Instructions Diet Discharge Diet: No restrictions Activity Weight Bearing Status: Full weight bearing Dressing / Incision Call your doctor if you observe: Shortness of breath and Chest pain Additional Dressing/Incision Instructions:: Do not shower 72hrs. Begin daily showering warm water antibacterial soap postop day #3( 72hrs Post-operatively) and then daily. Leave the dressing on for 72 hours postoperatively then may remove prior to first shower and change dressing daily after this until no drainage for 2 consecutive days then may leave open to air. Follow hip precautions that were reviewed in hospital. Wear compression stockings, may remove at night. Start physical therapy as directed in hospital. Follow prescriptions instructions do not take any other pain medication or differ dosing without consulting your physician. Do not take oral NSAIDs until blood thinner has been completed , then may begin the day after completion if needed .Call Dr. Latham's office with any concerns. Follow Up Care Please Follow Up With: Too Latham DO When: 2 weeks Test Results: Test results from this visit will be discussed in further detail at your follow- up appointment, if applicable. Discharge Plan Admission Primary Reason for Your Visit: Left total hip arthroplasty Attending Provider: Too Latham Primary Care Provider: Vinh Aguilar Instructions Print Language: [place] Discharge Orders/Prescriptions Prescriptions: New acetaminophen 500 mg tablet 1,000 mg PO Q6H Qty: 100 1RF cephalexin 500 mg capsule 1,500 mg PO Q8H Qty: 6 0RF Rx Instructions: Take 3 tabs before you go to bed and 3 tabs after 5 AM morning after surgery when you wake up Eliquis 2.5 mg tablet 2.5 mg PO BID Qty: 42 0RF Rx Instructions: Begin morning after surgery. oxycodone 5 mg tablet 5 - 10 mg PO Q4H PRN (Reason: pain) 7 Days Qty: 60 0RF Continued valsartan-hydrochlorothiazide 320-25 mg tablet 1 tab PO QDAY omeprazole 40 mg capsule,delayed release(DR/EC) 40 mg PO QDAY folic acid 1 mg tablet 1 mg PO QDAY cholecalciferol (vitamin D3) 50 mcg (2,000 unit) capsule 50 mcg PO QDAY Rx Instructions: Unsure dose. High Potency leucovorin calcium 15 mg tablet 15 mg PO DAILY prednisone 5 mg tablet 5 mg PO QAM gemfibrozil 600 MG tablet 600 mg PO BIDAC Held etodolac 400 mg tablet 400 mg PO BID Hold Instructions: May resume after completion of blood thinner Patient Comments: STOP 12/23/24 BEFORE SURGERY 12/29/24 methotrexate sodium 2.5 mg tablet 20 mg PO SA Hold Instructions: Hold the next 2-week doses tramadol 50 mg tablet 50 mg PO Q12H PRN (Reason: pain) Hold Instructions: Do not take while on other narcotics that were provided fish oil-dha-epa 1 EACH capsule 1 ea PO DAILY Hold Instructions: And resume after completion of blood thinner Patient Comments: STOP 12/23/24 BEFORE SURGERY 12/29/24 Other Ambulatory Orders: 12 Lead EKG (Routine) Timeframe: 20241221 Location: None Selected Ordered By: Dr. Too Latham Referrals / Follow Up: Vinh Aguilar MD [Primary Care Provider] - Disposition Disposition (needs filled in before D/C Order can be placed): Home, Self Care 12/29/24 1015<Electronically signed by Too Latham DO>Too Toñ[place]aren DUENAS CC: Dr. Vinh Aguilar MD ~ Signed [facility] Work Phone: 1(717) 138-998903-18-2025 Consult note Author Magdalena Beach [facility] Note Date/Time December 29, 2024 10: 04am [facility] Medical Records Department [address] [place] [address] Anesthesia Postop Eval I 12/29/24 0958 MR#: [id number] Acct: [id number] Name: MILES TURNER Rep #:[id number] : 1965 59 From: Magdalena Beach CRNA PCP: Dr. Vinh Aguilar MD Status:To [place] Y Race: C Location: [facility]01-1 ADDENDUM by IRMA Beach on 12/29/24 at 1004 Addendum Fentanyl 50 mcg given 09:[address] to PACU 12/29/24 1004 <Electronically signed by Magdalena Milosevi c RIVET CATCHER> Date _ Magdalena Beach RIVET CATCHER cc: ~* Signed Anesthesia: Postop Eval I Current Vital Signs Temperature: 97.5 F Pulse Rate: 73 Blood Pressure: 136/75 Respiratory Rate: 20 Pulse Ox: 98 Oxygen Delivery Method: Room Air Assessment Airway patent: Yes Spontaneous unlabored respirations: Yes Mental status: Awake nausea: No Vomiting: No Anesthesia Complication: No Fluid Hydration Crystalloid volume administer (ml): 2,600 Total IV fluid infused: 2,600 Progress Note Anesthesia document: Postop Eval 1 completed: Yes 12/29/24958 <Electronically signed by Magdalena payne RIVET CATCHER> Date _ Magdalena Beach RIVET CATCHER Cosigner Signature: Date CC: ~ Signed [facility] Work Phone: 1(964) 573-678103-18-2025 Radiology Diagnostic study note [facility] Imaging Services [address] [place] [address] Hip Min 2 Views (Portable) MR#: [id number] Acct: [id number] Name: MILES TURNER Rep #: [id number] : 1965 M 59 From: Piedad Mauro MD PCP: Dr. Vinh Aguilar MD Status: R [facility] Study:Hip Min 2 Views (Portable) Date of Exam : 12/29/24 Exam# [id number] Ordering Dr: Too Latham DO EXAM: XR Left Hip With Pelvis When Performed, 1 View CLINICAL INDICATION: POST OP TECHNIQUE: Frontal view of the left hip with pelvis when performed. COMPARISON: No relevant prior studies available. FINDINGS: BONES/JOINTS: Total hip replacement. Intact hardware. No acute fracture. No dislocation. SOFT TISSUES: Soft tissue emphysema and swelling. RAD/Hip Min 2 Views (Portable) IMPRESSION: Status post total hip replacement in anatomic position. Reading Location[facility] CC: Dr. Too Latham DO; Dr. Vinh Aguilar MD ~ Car Checker: Signed [facility]03-18-2025 Discharge summary [facility] Medical Records Department [address] [place] [address] Instructions for Home/Discharge Instructions 12/29/24 1006 MR#: [id number] Acct: [id number] Name: MILES TURNER Rep #:[id number] : 1965 59 From: Too Latham DO PCP: Dr. Vinh Aguilar MD Status:R [facility] Discharge Instructions Diet Discharge Diet: No restrictions Activity Weight Bearing Status: Full weight bearing Dressing / Incision Call your doctor if you observe: Shortness of breath and Chest pain Additional Dressing/Incision Instructions:: Do not shower 72hrs. Begin daily showering warm water antibacterial soap postop day #3( 72hrs Post-operatively) and then daily. Leave the dressing on for 72 hours postoperatively then may remove prior to first shower and change dressing daily after this until no drainage for 2 consecutive days then may leave open to air. Follow hip precautions that werereviewed in hospital. Wear compression stockings, may remove at night. Start physical therapy as directed in hospital. Follow prescriptions instructions do not take any other pain medication or differ dosing without consulting your physician. Do not take oral NSAIDs until blood thinner has been completed , then may begin the day after completion if needed .Call Dr. Latham's office with any concerns. Follow Up Care Please Follow Up With: Too Latham DO When: 2 weeks Test Results: Test results from this visit will be discussed in further detail at your follow- up appointment, if applicable. Discharge Plan Admission Primary Reason for Your Visit: Left total hip arthroplasty Attending Provider: Too Latham Primary Care Provider: Vinh Aguilar Instructions Print Language: [place] Discharge Orders/Prescriptions Prescriptions: New acetaminophen 500 mg tablet 1,000 mg PO Q6H Qty: 100 1RF cephalexin 500 mg capsule 1,500 mg PO Q8H Qty: 6 0RF Rx Instructions: Take 3 tabs before you go to bed and 3 tabs after 5 AM morning after surgery when you wake up Eliquis 2.5 mg tablet 2.5 mg PO BID Qty: 42 0RF Rx Instructions: Begin morning after surgery. oxycodone 5 mg tablet 5 - 10 mg PO Q4H PRN (Reason: pain) 7 Days Qty: 60 0RF Continued valsartan-hydrochlorothiazide 320-25 mg tablet 1 tab PO QDAY omeprazole 40 mg capsule,delayed release(DR/EC) 40 mg PO QDAY folic acid 1 mg tablet 1 mg PO QDAY cholecalciferol (vitamin D3) 50 mcg (2,000 unit) capsule 50 mcg PO QDAY Rx Instructions: Unsure dose. High Potency leucovorin calcium 15 mg tablet 15 mg PO DAILY prednisone 5 mg tablet 5 mg PO QAM gemfibrozil 600 MG tablet 600 mg PO BIDAC Held etodolac 400 mg tablet 400 mg PO BID Hold Instructions: May resume after completion of blood thinner Patient Comments: STOP 12/23/24 BEFORE SURGERY 12/29/24 methotrexate sodium 2.5 mg tablet 20 mg PO SA Hold Instructions: Hold the next 2-week doses tramadol 50 mg tablet 50 mg PO Q12H PRN (Reason: pain) Hold Instructions: Do not take while on other narcotics that were provided fish oil-dha-epa 1 EACH capsule 1 ea PO DAILY Hold Instructions: And resume after completion of blood thinner Patient Comments: STOP 12/23/24 BEFORE SURGERY 12/29/24 Other Ambulatory Orders: 12 Lead EKG (Routine) Timeframe: 20241221 Location: None Selected Ordered By: Dr. Too Latham Referrals / Follow Up: Vinh Aguilar MD [Primary Care Provider] - Disposition Disposition (needs filled in before D/C Order can be placed): Home, Self Care 12/29/24 1015Joseph Noa DO CC: Dr. Vinh Aguilar MD ~ Signed [facility]03-18-2025 Procedure note [facility] Medical Records Department [address] [place] [address] Operative Report 12/29/24 1002 MR#: [id number] Acct: [id number] Name: MILES TURNER Rep #:[id number] : 1965 59 From: Too Latham DO PCP: Dr. Vinh Aguilar MD Status:R [facility] Location: [place] [address] Operative Report (Standard) Operative Information Date of Procedure: 12/29/24 Pre-Operative Diagnosis: Left hip DJD rheumatoid arthritis Post-Operative Diagnosis: Same Surgery/Procedure Performed: Left total hip arthroplasty concert promoter: Yes Housing Liaison: Moshe Chen Tasks completed by warehouse assistant: Opening & closing Additional industrial hire sales assistant?: No Type of Anesthesia: Spinal RN Documented Start/Stop Times: Operation Date: 12/29/24 07:30 Case Time Into Pre-Op 12/29/24 05:35 Out of Pre-Op 12/29/24 07:35 Anesthesia Start 12/29/24 07:39 Into Room 12/29/24 07:39 Procedure Start 12/29/24 08:13 Procedure End 12/29/24 09:46 Anesthesia End 12/29/24 09:51 Out of Room 12/29/24 09:51 Into Recovery 12/29/24 09:59 Procedure Start Time: 08:13 Procedure Stop Time: 09:46 Select all DRAINS/GRAFTS/IMPLANTS that apply: Implanted device Implanted device details: [place] Estimated Blood Loss: 125 Specimen collected: Yes Description of specimen(s) removed: Femoral head Description of surgery: Preoperative diagnosis: Left hip DJD rheumatoid arthritis Postoperative diagnosis: Same Procedure: CT-guided Makoplasty assisted left total hip arthroplasty Implants: Yogesh Accolade II stem size 6, 127 degree neck angle +2.5 head necklength 56 mm TridentII acetabular shell with 40 mm cancellous screw 36 mm ceramic head, 10 degree Trident X3 polyethylene insert. Anesthesia: Spinal EBL: 125 cc Complications: None Condition: Stable to PACU Commercial Appraiser Moshe Chen. My physician industrial hire sales assistant was a vital part of this case. He was important in appropriate retraction during the case, and protection of soft tissues during procedure. His intimateknowledge of the case and my steps aided in safe and expedient completion of the procedure as well as appropriate position of the extremity during the case. He was also vital in assisting with closure under my direct supervision. Indication for procedure: This is a 59-year-old male who has had long-standing arthrosis of the hipwho has failed conservative treatment and wished to undergototal hip arthroplasty. We did discuss operative versus nonoperative intervention including risks of bleeding, infection , nerve artery tissue damage, need for further surgery, fracture, leg length discrepancy dislocation blood clot and need for postoperative physical therapy and postoperative expectations. An informed consent was signed. Procedure: Patient was met in the preoperative holding area once again the operative extremity was identified by both patient and physician and was marked. Patient was met by anesthesia . Anesthesia was started. patient was then positioned in the lateral decubitus position on a well-padded pegboardwith an axillary roll. All bony prominences were checked and padded. The patient was prepped and draped in the usual sterile fashion. A timeout was called to ensurethe proper patient procedure and extremity were being contemplated. Anatomic landmarks were palpated and marked for a standard posterior lateral approach. Prior to this the ASIS was palpated and 3 fingerbreadths proximal to this 3 pinswere placed at a 45 degree angle into the iliac crest with good purchase, stab incisions were made with a 15 blade into the skin prior to placement. The Makoplasty array was then secured. A 10 blade scalpel was used to make a posterior incision through the skin and subcutaneous tissue. retractors were used and electrocautery was used to maintain meticulous hemostasis and dissect full-thickness flaps until the gluteal fascia was reached. The gluteal fascia was incised in line with the gluteal fibers. The bursal tissue was then freed from the underside and a Charnley retractor was placed. The femoral trochanteric checkpoint was placed and leg length was assessed using the trochanteric checkpoint and an EKG lead that was placed on the knee prior to prepping the leg .the fat pad was then elevated off of the external rotators with electrocautery and the external rotators were dissected off ofthe greater trochanter including the piriformis and were tagged with #1 Ethibond for later repair. The joint capsule opened with posterior trapdoor technique. The hip was surgically dislocated. The measurement on the preoperative CT from the top of the lesser trochanter to the femoral neck cut was marked Melchorhmann was placed around the lesser trochanter. A neck cutting guide was used to abdifatah the neck with a Bovie and an oscillating saw was used complete the femoral neck cut. Thefemoral head was then removed and sized. We then turned our attention to the acetabulum. A Bovie was used to make a perforation in the anterior joint capsule and a Nayak retractor was placed this was repeated in the 6 o'clock position and a wide jackie was placed there. With a long handled knife the labral and pulvinar tissue were removed. We then registered the acetabulum withthe pointing array and confirmed our landmarks. Once the socket was thoroughlyprepared and labral tissue and pulvinar was removed we single reamed with the robotic arm. We then used the robotic arm to position the acetabular implant and impacted it into place under robotic guidance. We then proceeded to place aposterior superior screw by drilling first measuring and inserting the screw. We then inserted a trial liner. And turned our attention back to the femur at this point a femoral elevator was used. As well as a pointed wide Hohmann around the lesser trochanter and a Hohmann to help retract the gluteus medius. A box chisel was used to remove excess lateral neck followed by a canal finder and a lateralizing reamer. This was followed by sequential broaches. Attentionwas made of the version within the canal based on preoperative templating. Oncethe final broach was seated we then trialed reduced the hip it was determined that a 127 degree neck angle with a +2.5 neck length was the appropriate size. This did lead him 12 mmlonger than his contralateral however he is planning on having his other hip done and there is significant shortening on that side we then checked stability with shuck testing as well as flexion and internal rotation. then proceeded with hip extension and checked leg lengths at the knees and heels as well as with the trochanteric checkpoint and knee EKG lead. At this point trials were removed. A liner was inserted to the cup. The femoral stem was inserted. We re-trialed and then proceeded to impact the femoral head onto the Lenin taper. We then surgically reduce the hip check stability againand leg lengths and were satisfied. Betadine rinse was allowed to sit for 5 minutes while everyone c hanged their gloves. Thorough irrigation was performed. Followed by closure of the external rotators with #2 FiberWire followed by closure of gluteal fascia with #1 Ethibond. 0 Vicryl fat stitches and 2-0 Vicryl subcutaneous stitches and rex in the skin. [place] were placed in the skin pin sites over the iliac crest and dressed with a Mepilex dressing. The main incision was dressed with a Mepilex ag dressing and an abduction pillow was placed. Patient tolerated the procedure well there was no intraoperative complications all counts were correct and the patient was broughtback to the PACU in stable condition Surgical Findings: Rheumatoid arthritis DJD Complications Complications: No 12/29/24 1006 Cosigner Signature (if applicable): CC: Dr. Too Latham DO; Dr. Vinh Aguilar MD~ Signed [facility]03-18-2025 Consult note [facility] Medical Records Department [address] [place] [address] Anesthesia Postop Eval I 12/29/2458 MR#: [id number] Acct: [id number] Name: MILES TURNER Rep #:[id number] : 1965 59 From: Magdalena Beach CRNA PCP: Dr. Vinh Aguilar MD Status:R [facility] Y Race: C Location: [place] [id number] ADDENDUM by IRMA Beach on 12/29/24 at 1004 Addendum Fentanyl 50 mcg given 09:[address] to PACU 12/29/24 1004 c RIVET CATCHER> Date _ Magdalena Beach CRNA cc: ~* Signed Anesthesia: Postop Eval I Current Vital Signs Temperature: 97.5 F Pulse Rate: 73 Blood Pressure: 136/75 Respiratory Rate: 20 Pulse Ox: 98 Oxygen Delivery Method: Room Air Assessment Airway patent: Yes Spontaneous unlabored respirations: Yes Mental status: Awake nausea: No Vomiting: No Anesthesia Complication: No Fluid Hydration Crystalloid volume administer (ml): 2,600 Total IV fluid infused: 2,600 Progress Note Anesthesia document: Postop Eval 1 completed: Yes 12/29/24 0959 c RIVET CATCHER> Date _ Magdalena Nanceigner Signature: Date CC: ~ Signed [facility]03-18-2025 History and physical note Author Too Latham [facility] Note Date/Time December 29, 2024 7:2 5am [facility] Medical Records Department [address] [place] [address] History & Physical Exam 12/29/2425 MR#: [id number] Acct: [id number] Name: MILES TURNER Rep #:[id number] : 1965 59 From: Too Latham DO PCP: Dr. Vinh Aguilar MD Status:[facility] Location: [place] [address] History and Physical Date of Admission: 12/29/24 [facility] [address] [place] [address] OFFICE VISIT Date of Service: 11/04/24 MR#: [id number] Acct: [id number] Name: YUEMILES BRENDAN Rep #: [id number] : 1965 Provider: Dr. Too Latham DO Age/Sex: 59/M Location: [facility] Status: Signed Intake Vital Signs 07/27/2408:18 11/04/2514:56 Height 5 ft 9 in 5 ft 9.5 in Weight: 272 lb 8 oz 265 lb 6 oz BMI 40.2 38.6 Intake Visit Reasons: BILATERAL KNEES Allergies No Known Allergies Allergy (Verified 11/04/24 16:03) Medications ?Medication ?Instructions ?Recorded ?Confirmed ?Type fish oil-dha-epa 1,200 mg-144 1 ea PO DAILY 01/08/18 11/04/24 History mg-216 mg capsule gemfibrozil 600 mg tablet 600 mg PO BIDAC 01/08/18 11/04/24 History cholecalciferol (vitamin D3) 50 50 mcg PO QDAY 07/27/24 11/04/24 History mcg (2,000 unit) capsule etodolac 400 mg tablet 400 mg PO BID 07/27/24 11/04/24 History folic acid 1 mg tablet 1 mg PO QDAY 07/27/24 11/04/24 History leucovorin calcium 15 mg tablet mg PO 07/27/24 11/04/24 History methotrexate sodium 2.5 mg tablet 2.5 mg PO 07/27/24 11/04/24 History omeprazole 40 mg capsule,delayed 40 mg PO QDAY 07/27/24 11/04/24 History release valsartan 320 1 tab PO QDAY 07/27/24 11/04/24 History mg-hydrochlorothiazide 25 mg tablet tramadol 50 mg tablet mg PO 11/04/24 11/04/24 History PFSH Family History (Updated 07/27/24 @ 08:23 by Alisson Capone MA) Mother Heart disease DiabetesFather Heart disease Social History (Updated 07/27/24 @ 08:23 by Alisson Capone MA) household members: spouse Smoking Status: Former smoker alcohol intake: current alcohol intake frequency: holidays/special occasions only HPI BILATERAL KNEES Details: This documentation accurately reflects the service provided and the decisions made by me, Dr. Too Latham, DO 11/04/24 0813. Part of today?s visit was documented by Michelle FRANZ, acting as scribe. MILES TURNER is a 59 year old M here today for 11/04/2024: Patient is here today to discuss surgery. He wants to talk about if he should do his hips or knees first. He states that he would like to have his left hip replaced but also wants to discuss if the knees would affect PT post- operatively. Dr. Prescott did prescribe him tramadol for pain but he states it doesn't seem to do anything for his pain. He take it at least once a day in the morning. He feels that his pain has gotten worse since being on the Methotrexate. He started taking it in June of 2024. He finds his hip is very debilitating is preventing him from doing things he enjoys he is ready to move forward with joint arthroplasty he denies any numbness or tingling 07/27/2024 office visit: here today for Bilateral knee pain. Patient states that his knees have bothered him for about 6 years. Patient states the only injury to his right knee was he went down on ice and hit a rock no injury to hisleft. Patient states that his left is worse then right. Patient states he has had injection to his knee. Patient has had the gel injection and cortisone injections. Gel injection lasted about a month maybe a little longer. Cortisone injections last him weeks, maybe a month. Patient has done PT 3 years ago for his knees and he still does the exercises that they taught him. Patient takes Tylenol and Etodolac for his pain. Patient has tired ice and heat, heat is better then ice. Patient states his pain in his knees are all over, he states they are bone on bone. Patient would like to have injection in his knees today if possible. He also has bilateral groin pain worse on the left he did have an injection in the past which was not very helpful. He was only recently diagnosed with rheumatoid arthritis and recently started on methotrexate currently taking 5 tabs of 2.5mg. 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 He denies tobacco or alcohol use. Plan:Educated patient on anatomy and etiology of both knees. Reviewed xrays withpatient and informed him that he does have advanced knee arthritis in both kneesand both hips. Informed patient about hip injection and advised that I would not recommend them as they don't typically give much relief. Spoke with patient that his treatment options are do nothing, steroid injections, knee braces, weight loss, anti-inflammatories, physical therapy, or a TKA. Patient wishes to proceed with bilateral knee injection today. Did advise patient that the recovery time for a knee replacement can take up to 2 years to fully recover butby 3 months most people are happy they had it done. He is also getting some adjustments to his rheumatoid medications as he was recently diagnosed. Follow up as needed or to talk more about surgery or sooner if pain, swelling, numbness or associated symptoms, or concerns develop. All questions answered. Patient in agreement of plan. Ortho Exam General General: Yes no acute distress Neurologic: Yes alert and Yes oriented x3 Psychologic: Yes reasonable and appropriate Right Knee Skin/Wound: No erythema, No ecchymosis and No swelling Homans Sign: No Knee ROM: Yes ROM-Extension -20 to 0 (-3) and Yes ROM-Flexion 0-140 (93) Examination: No Med jt line tenderness, No Lat jt line tenderness and No TTP PesAnserine Stability: NML: Anterior Drawer, NML: Posterior Drawer, NML: Valgus 0, NML: Valgus 30, NML: Varus 0 and NML: Varus 30 Patella Translation: 1 Left Knee Skin/Wound: No ecchymosis, No erythema and No swelling Knee ROM: Yes ROM-Extension -20 to 0 (-3) and Yes ROM-Flexion 0-140 (93) Examination: No med jt line tenderness and No Lat jt line tenderness Stability: NML: Anterior Drawer, NML: Bautista, NML: Posterior Drawer, NML: Valgus 0, NML: Valgus 30, NML: Varus 0 and NML: Varus 30 Patella Translation: 1 KNEE: no effusion varus deformity 2mm medial gapping with valgus stress Right Hip Skin: No Ecchymosis and No Erythema internal rotation @90 degree flexion: 0 degrees external rotation @90 degree extension: 20 degrees Special Tests: No TTP Greater Troch and No RROM flexion pain HIP: Patient is very stiff he does not have significant pain with hip range of motion. There is no gross motor or sensory deficits bilateral lower extremity there is no tenderness over the trochanteric bursa Left Hip Skin/Wound: No Ecchymosis, No soft tissue swelling and No Erythema Hip: Absent eccymosis, soft tissue swelling or erythema internal rotation @90 degree flexion: 0 degrees external rotation @90 degree extension: 20 degrees HIP: Patient is very stiff he does not have significant pain with hip range of motion. There is no gross motor or sensory deficits bilateral lower extremity there is no tenderness over the trochanteric bursa Head: Normocephalic Atraumatic Chest: symmetrical rise, non-labored breathing, no audible wheeze Abdomen: no guarding, non-rigid Supplemental Info 07/27/2024 x-ray right knee: Advanced knee arthrosis there is subluxation of thetibia laterally Advanced knee arthrosis there is subluxation of the tibia laterally advanced varus deformity 07/27/2024 x-ray left knee: Advanced knee arthrosis there is subluxation of the tibia laterally advanced varus deformity 06/01/2024 x-ray pelvis: Advanced bilateral hip arthrosis [id number] with bony erosion large cystic changes of the femoral head and acetabulum Coding Level of Care Code Off vis,est,level 4 Diagnoses Rheumatoid arthritis involving both hips with positive rheumatoid factor M05.751; M05.752 Rheumatoid arthritis location: hip Rheumatoid factor presence: with rheumatoid factor Laterality: bilateral Primary osteoarthritis of left hip M16.12 Osteoarthritis type: primary Assessment and Plan Assessment and Plan (1) Rheumatoid arthritis: Status: Acute Qualifiers: Rheumatoid arthritis location: hip Rheumatoid factor presence: with rheumatoid factor Laterality: bilateral Qualified Code(s): M05.751 - Rheumatoid arthritis with rheumatoid factor of right hip without organ or systems involvement; M05.752 - Rheumatoid arthritis with rheumatoid factor of left hip without organ or systems involvement (2) Degenerative joint disease of left hip: Status: Acute Qualifiers: Osteoarthritis type: primary Qualified Code(s): M16.12 - Unilateral primary osteoarthritis, left hip Plan Patient is here today to discuss whether he should do a knee replacement or hip replacement first. I did advise patient that there isn't any protocol on which extremity to replace first. I did advise patient that radiographically his hips are worse than his knees. I did advise patient that he would to be free from nicotine 6 weeks before surgery and 6 weeks after surgery. Patient would like tohave surgery at the end of November. I did advise patient that the day of surgery he will be up and walking. patient will need to stop the etodolac 7 days before surgery, the fish oil 3 weeks before surgery, although there is literature to support continuing methotrexate throughout the perioperative period there is still some evidence of lowered immune systems and we discussed possibly discontinuing it for 2 weeks prior is not getting any benefit anyway according to the patient has been on for 5 months and feels worse. I advised patient that his hips are short on both sides and would be at risk for a leg length discrepancy at least in between surgeries he will eventually most likely do his right hip as well. Risks, benefits and alternatives of surgery reviewed including but not limited to bleeding, infection, nerve, foot drop, artery and/or tissue damage, fracture, VTE, leg length discrepancy, dislocation, need for hip precautions, continued pain and expected post-operative course. After surgery he will have strict hip precautions for 6 weeks of no deep flexion and no reaching to the floor. He will be on Eliquis for 3 weeks post-operatively. Hewill have to do at least of 6 weeks of PT after surgery. Patient wishes to proceed with a total hip replacement of the left hip on December 29. Same-day surgery He will need medical clearance. I would recommend discontinuing all narcotics before surgery. Follow up at 2 weeks post-op or sooner if pain, swelling, numbness or associatedsymptoms, or concerns develop. All questions answered. Patient in agreement of plan. 11/04/24 1638 <Electronically signed by Too Latham DO> Date Too Latham DO Cosigner Signature: Date (if applicable) CC: ~ I have examined the patient and the H&P has been reviewed. There are no clinicalchanges since date of exam. 12/29/24724 <Electronically signed by Too Latham DO> Cosigner Signature (if applicable): CC: Dr. Too Latham DO; Dr. Vinh Aguilar MD~ Signed [facility] Work Phone: [phone] 523-549503-18-2025 Consult note Author Bobo Diamnod [facility] Note Date/Time December 29, 2024 6:[address] [facility] Medical Records Department [address] [place] [address] Pre-Anesthesia Evaluation 12/29/24 0646 MR#: [id number] Acct: [id number] Name: MILES TURNER Rep #:[id number] : 1965 59 From: Bobo Diamond MD PCP: Dr. Vinh Aguilar MD Status:To [facility] Y Race: C Location: [place] [id number] ASA Classification* ASA Classification ASA Classification: 2 (Patient significant risk for obstruction when sedated post spinal. Otherwise, has HTN, GERD, RA. Please keep spine neutral when asleepdue to RA) Assessment & Plan Anesthesia* Anesthesia Assessment Anesthesia Assessment: Discussed sedation and/or anesthesia options, risks, benefits, and alternatives with patient/parents/legal guardian/POA. Questions invited. The patient/parents/legal guardian/POA seems to understand and agrees to proceedwith anesthesia plan. Reviewed the physical assessment, medical history, allergy history and patient home medications list prior to surgery/procedure/anesthetic and documented any changes. Performed airway and anesthesia risk assessments. Anesthesia Type Anesthesia Type: Spinal History Source History Obtained from:: Patient and Chart Anesthesia Focused Assessment* Temperature: 97.9 F Pulse Rate: 84 Blood Pressure: 136/80 Respiratory Rate: 16 Pulse Ox: 95 Oxygen Delivery Method: Room Air Airway Assessment Mouth opens: >3 cm Mallampati Score: III Teeth Condition: Intact and Missing (top right) Neck Range of motion (ROM): Full ROM Focused Labs Anesthesia Preop lab: CBC WBC 8.6 K/mm3 (4.4-11.0) 11/11/24 16:07 11/11/24 RBC 4.59 M/mm3 (4.6-6.2) L 11/11/24 16:07 11/11/24 Hgb 15.5 g/dL (13.0-16.5) 11/11/24 16:07 11/11/24 Hct 45.7 % (40-54) 11/11/24 16:07 11/11/24 Plt Count 249 K/mm3 (150-450) 11/11/24 16:07 11/11/24 CHEMISTRY Potassium 4.0 mmol/L (3.5-5.1) 11/11/24 16:07 11/11/24 Sodium 137 mmol/L (136-145) 11/11/24 16:07 11/11/24 Magnesium 2.2 mg/dL (1.5-2.2) 12/21/24 07:55 12/21/24 BUN 28 mg/dL (7-18) H 11/11/24 16:07 11/11/24 Creatinine 0.84 mg/dL (0.70-1.30) 11/11/24 16:07 11/11/24 Glucose 85 mg/dL (74-106) 11/11/24 16:07 11/11/24 POC Glucose 82 mg/dL (74-106) 12/29/24 05:53 12/29/24 COAG PT 12.8 SECONDS (11.7-14.9) 12/21/24 07:55 Pre-Assessment Diagnosis/Proposed Procedure Planned Operative Procedure(s): LEFT TOTAL HIP ARTHROPLASTY ROBOTIC ASSISITED Anesthesia History Anesthesia History - batch room technician: Anesthesia History - batch room technician Hx Hospitalization No 12/15/24 14:01 Any Problems With Anesthesia No 12/15/24 14:01 Cholinesterase deficiency No 12/15/24 14:01 You/Your Family Experience No 12/15/24 14:01 fever (hyperthermia) with Relationship Recent Exposure to Contagious No 12/29/24 05:57 Disease Does patient have nerve No 12/15/24 14:01 stimulator Patient instructed to have device shut off --Does patient have Pacemaker No 12/29/24 06:05 or ICD? When Was Last Pacemaker Check QUESTION #4 FULL TEXT: You/Your Family Experience fever (hyperthermia) with Anesthesia Last Oral Intake Last Oral intake: Last Oral Intake NPO since 03:30 12/29/24 06:05 Meds taken in AM with sips of Yes 12/29/24 06:05 water? Meds patient instructed to take am of surgery PONV PONV - batch room technician: PONV - batch room technician Female No 12/15/24 14:01 HX of Motion Sickness No 12/15/24 14:01 HX of N/V After Surgery No 12/15/24 14:01 Non-Smoker Yes 12/15/24 14:01 Duration of Surgery greater Yes 12/15/24 14:01 than 60 minutes Number of Risk Factors 2 12/15/24 14:01 PONV Score Moderate Risk 12/15/24 14:01 Height & Weight Height & Weight: Anesthesia: Height & Weight Height 5 ft 9 in 12/29/24 06:05 Weight: 115.212 kg 12/29/24 06:05 Body Mass Index (BMI) 37.5 12/29/24 06:05 Respiratory Assessment Respiratory Assessment - batch room technician: Respiratory Tract Infection Hx - batch room technician Hx Respiratory Tract Infection No 12/15/24 14:01 STOP Sleep Apnea STOP Sleep Apnea - batch room technician: STOP Sleep Apnea - batch room technician Hx Hypertension Yes: CONTROLLED WITH MEDS 12/15/24 14:01 Hx Sleep Apnea No 12/15/24 14:01 CPAP BIPAP Do you snore loudly (louder Yes 12/15/24 14:01 than talking or can be heard Do you often feel tired/ No 12/15/24 14:01 fatigued/ sleepy during daytime? Has anyone observed you stop Yes 12/15/24 14:01 breathing during sleep? STOP Results Positive 12/15/24 14:01 QUESTION #5 FULL TEXT : Do you snore loudly (louder than talking or can be heard through closed doors)? 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 Tobacco Use Smoking Status Former smoker 12/15/24 14:01 Hx Tobacco Use No 12/15/24 14:01 Years Smoking Packs Smoked per Day Smoking Cessation Date was No - quit smoking greater 12/15/24 14:01 within the last 15 years than 15 years ago Hx Smoking Cessation Date Hx Smoking Cessation Counseling Hematologic Medial History Hematologic Hx - batch room technician: Hematologic Medical Hx - infrastructure manager Hx of Blood Transfusion No 12/15/24 14:01 Hx of Transfusion in last 3 No 12/15/24 14:01 Months Date of Last Transfusion (if within last 3 months) Ever experience any problems No 12/15/24 14:01 with transfusion(s)? Specify any problems Hx of Preganancy in last 3 N/A 12/15/24 14:01 Months Nurse Filling Out Transfusion [email or web address] 12/15/24 14:01 & Questions: Date: 12/15/24 12/15/24 14:01 Time: 14:06 12/15/24 14:01 Patient unable to answer at this time (ie. confused, unrespo /Reproduction History /Reproductive History - batch room technician: /Reproductive Hx- batch room technician Hx Now Gestational Age (in weeks): EDC: Hx Hx Para Hx Section SAB Active Medications Active Medications: Current Medications Generic Name Dose Route Start Last Admin Trade Name Freq PRN Reason Stop Dose Admin Acetaminophen 1,000 mg 12/29/24 07:30 12/29/24 06:11 Acetaminophen 500 Mg Tablet PO 12/29/24 07:31 1,000 mg X1 ONE Administration Celecoxib 400 mg 12/29/24 07:30 12/29/24 06:11 Celecoxib 200 Mg Capsule PO 12/29/24 07:31 400 mg X1 ONE Administration Dexamethasone Sodium Phosphate 10 mg 12/29/24 07:30 Dexamethasone 10 Mg/Ml Vial IV 12/29/24 07:31 X1 ONE Gabapentin 600 mg 12/29/24 07:30 12/29/24 06:12 Gabapentin 600 Mg Tablet PO 12/29/24 07:31 600 mg X1 ONE Administration Lactated Ringer's 1,000 mls @ 999 mls/hr 12/29/24 07:30 12/29/24 06:21 IV 12/29/24 08:30 999 mls/hr .Q1H1M STEVEN Administration Cefazolin Sodium 3 gm/ N/A 30 mls @ 600 mls/hr 12/29/24 07:30 IV 12/29/24 07:32 PREOP ONE Tranexamic Acid 2,000 mg/ 120 mls @ 660 mls/hr 12/29/24 07:30 Sodium Chloride IV 12/29/24 07:40 X1 ONE Lactated Ringer's 1,000 mls @ 125 mls/hr 12/29/24 07:30 IV 12/29/24 15:29 .Q8H STEVEN Magnesium Sulfate 1 gm/ 102 mls @ 408 mls/hr 12/29/24 07:30 12/29/24 06:22 Dextrose IV 12/29/24 07:44 408 mls/hr X1 ONE Administration Lactated Ringer's 1,000 mls @ 100 mls/hr 12/29/24 06:30 12/29/24 06:25 IV 100 mls/hr .Q10H STEVEN Administration Insulin Human Lispro 1 - 6 unit 12/29/24 07:30 Insulin Lispro 100 Unit/Ml Insuln.Pen SC 12/29/24 18:00 Q4H PRN PRN BG>/= 180, SEE PROTOCOL Protocol Scopolamine HBr 1 patch 12/29/24 07:30 12/29/24 06:12 Scopolamine 1mg/72hr Patch TD 12/29/24 07:31 1 patch X1 ONE Administration PFSH Medical History Wears glasses Colonoscopy planned Gastric reflux History of stress test Former smoker Home Medications ?Medication ?Instructions ?Recorded ?Last Taken ?Type fish oil-dha-epa 1,200 mg-144 1 ea PO DAILY 01/08/18 0 12/22/24 History mg-216 mg capsule gemfibrozil 600 mg tablet 600 mg PO BIDAC 01/08/18 19:00 History cholecalciferol (vitamin D3) 50 50 mcg PO QDAY 4 12/22/24 History mcg (2,000 unit) capsule etodolac 400 mg tablet 400 mg PO BID 07/27/2412/22 History folic acid 1 mg tablet 1 mg PO QDAY 07/27/24 History leucovorin calcium 15 mg tablet 15 mg PO DAILY 4 Unknown History methotrexate sodium 2.5 mg tablet 20 mg PO SA 07/27/24 12/12/24 History omeprazole 40 mg capsule,delayed 40 mg PO QDAY 4 12/29/24 03:30 History release valsartan 320 1 tab PO QDAY 07/27/2412/29 03:30 History mg-hydrochlorothiazide 25 mg tablet tramadol 50 mg tablet 50 mg PO Q12H PRN pain 11/0412/22/24 History prednisone 5 mg tablet 5 mg PO QAM 12/16/24 5 History Allergy/AdvReac Type Severity Reaction Status Date / Time No Known Allergies Allergy Verified 12/29/24 05:55 Family History Mother Heart disease Diabetes Father Heart disease Social History household members: spouse Smoking Status: Former smoker alcohol intake: current alcohol intake frequency: holidays/special occasions only Review of Systems (Anesthesia) ROS Narrative System reviewed and no additional complaints, except as documented. Physical Exam Const alert, oriented x3 and average body habitus Resp normal respiratory effort, normal air movement and clear to auscultation bilaterally Cardio regular rate, regular rhythm, no murmurs and diaphoretic 12/29/24 0652 <Electronically signed by Bobo Diamond MD> Date _ Bobo Diamond MD Cosigner Signature: Date CC: ~ Signed [facility] Work Phone: [phone] History and physical note [facility] Medical Records Department [address] [place] [address] History & Physical Exam 12/29/24724 MR#: [id number] Acct: [id number] Name: MILES TURNER Rep #:[id number] : 1965 59 From: Too Latham DO PCP: Dr. Vinh Aguilar MD Status:[place] [facility] Location: [place] [address] History and Physical Date of Admission: 12/29/24 [facility] [address] [place] [address] OFFICE VISIT Date of Service: 11/04/24 MR#: [id number] Acct: [id number] Name: MILES TURNER Rep #: [id number] : 1965 Provider: Dr. Too Latham DO Age/Sex: 59/M [place] [facility] Status: Signed Intake Vital Signs 07/27/2408:18 11/04/2514:56 Height 5 ft 9 in 5 ft 9.5 in Weight: 272 lb 8 oz 265 lb 6 oz BMI 40.2 38.6 Intake Visit Reasons: BILATERAL KNEES Allergies No Known Allergies Allergy (Verified 11/04/24 16:03) Medications ?Medication ?Instructions ?Recorded ?Confirmed ?Type fish oil-dha-epa 1,200 mg-144 1 ea PO DAILY 01/08/18 11/04/24 History mg-216 mg capsule gemfibrozil 600 mg tablet 600 mg PO BIDAC 01/08/18 11/04/24 History cholecalciferol (vitamin D3) 50 50 mcg PO QDAY 07/27/24 11/04/24 History mcg (2,000 unit) capsule etodolac 400 mg tablet 400 mg PO BID 07/27/24 11/04/24 History folic acid 1 mg tablet 1 mg PO QDAY 07/27/24 11/04/24 History leucovorin calcium 15 mg tablet mg PO 07/27/24 11/04/24 History methotrexate sodium 2.5 mg tablet 2.5 mg PO 07/27/24 11/04/24 History omeprazole 40 mg capsule,delayed 40 mg PO QDAY 07/27/24 11/04/24 History release valsartan 320 1 tab PO QDAY 07/27/24 11/04/24 History mg-hydrochlorothiazide 25 mg tablet tramadol 50 mg tablet mg PO 11/04/24 11/04/24 History PFSH Family History (Updated 07/27/24 @ 08:23 by Alisson Capone MA) Mother Heart disease DiabetesFather Heart disease Social History (Updated 07/27/24 @ 08:23 by Alisson Capone MA) household members: spouse Smoking Status: Former smoker alcohol intake: current alcohol intake frequency: holidays/special occasions only HPI BILATERAL KNEES Details: This documentation accurately reflects the service provided and the decisions made by me, Dr. Too Latham, DO 11/04/24 0813. Part of today?s visit was documented by Michelle FRANZ, acting as scribe. MILES TURNER is a 59 year old M here today for 11/04/2024: Patient is here today to discuss surgery. He wants to talk about if he should do his hips or knees first. He states that he would like to have his left hip replaced but also wants to discuss if the knees would affect PT post- operatively. Dr. Prescott did prescribe him tramadol for pain but he states it doesn't seem to do anything for his pain. He take it at least once a day in the morning. He feels that his pain has gotten worse since being on the Methotrexate. He started taking it in June of 2024. He finds his hip is very debilitating is preventing him from doing things he enjoys he is ready to move forward with joint arthroplasty he denies any numbness or tingling 07/27/2024 office visit: here today for Bilateral knee pain. Patient states that his knees have bothered him for about 6 years. Patient states the only injury to his right knee was he went down on ice and hit a rock no injury to hisleft. Patient states that his left is worse then right. Patient states he has had injection to his knee. Patient has had the gel injection and cortisone injections. Gel injection lasted about a month maybe a little longer. Cortisone injections last him weeks, maybe amonth. Patient has done PT 3 years ago for his knees and he still does the exercises that they taught him. Patient takes Tylenol and Etodolac for his pain. Patient has tired ice and heat, heat is bett er then ice. Patient states his pain in his knees are all over, he states they are bone on bone. Patient would like to have injection in his knees today if possible. He also has bilateral groin pain worse on the left he did have an injection in the past which was not very helpful. He was only recently diagnosed with rheumatoid arthritis and recently started on methotrexate currently taking 5 tabs of 2.5mg. 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 He denies tobacco or alcohol use. Plan:Educated patient on anatomy and etiology of both knees. Reviewed xrays withpatient and informed him that he does have advanced knee arthritis in both kneesand both hips. Informed patient about hip injection and advised that I would not recommend them as they don't typically give much relief. Spoke with patient that his treatment options are do nothing, steroid injections, knee braces, weightloss, anti-inflammatories, physical therapy, or a TKA. Patient wishes to proceed with bilateral knee injection today. Did advise patient that the recovery time for a knee replacement can take up to 2years to fully recover butby 3 months most people are happy they had it done. He is also getting some adjustments to his rheumatoid medications as he was recently diagnosed. Follow up as needed or to talk more about surgery or sooner if pain, swelling, numbness or associated symptoms, or concerns develop. All questions answered. Patient in agreement of plan. Ortho Exam General General: Yes no acute distress Neurologic: Yes alert and Yes oriented x3 Psychologic: Yes reasonable and appropriate Right Knee Skin/Wound: No erythema, No ecchymosis and No swelling Homans Sign: No Knee ROM: Yes ROM-Extension -20 to 0 (-3) and Yes ROM-Flexion 0-140 (93) Examination: No Med jt line tenderness, No Lat jt line tenderness and No TTP PesAnserine Stability: NML: Anterior Drawer, NML: Posterior Drawer, NML: Valgus 0, NML: Valgus 30, NML: Varus 0and NML: Varus 30 Patella Translation: 1 Left Knee Skin/Wound: No ecchymosis, No erythema and No swelling Knee ROM: Yes ROM-Extension -20 to 0 (-3) and Yes ROM-Flexion 0-140 (93) Examination: No med jt line tenderness and No Lat jt line tenderness Stability: NML: Anterior Drawer, NML: Bautista, NML: Posterior Drawer, NML: Valgus 0, NML: Valgus 30, NML: Varus 0 and NML: Varus 30 Patella Translation: 1 KNEE: no effusion varus deformity 2mm medial gapping with valgus stress Right Hip Skin: No Ecchymosis and No Erythema internal rotation @90 degree flexion: 0 degrees external rotation @90 degree extension: 20 degrees Special Tests: No TTP Greater Troch and No RROM flexion pain HIP: Patient is very stiff he does not have significant pain with hip range of motion. There is no grossmotor or sensory deficits bilateral lower extremity there is no tenderness over the trochanteric bursa Left Hip Skin/Wound: No Ecchymosis, No soft tissue swelling and No Erythema Hip: Absent eccymosis, soft tissue swelling or erythema internal rotation @90 degree flexion: 0 degrees external rotation @90 degree extension: 20 degrees HIP: Patient is very stiff he does not have significant pain with hip range of motion. There is no grossmotor or sensory deficits bilateral lower extremity there is no tenderness over the trochanteric bursa Head: Normocephalic Atraumatic Chest: symmetrical rise, non-labored breathing, no audible wheeze Abdomen: no guarding, non-rigid Supplemental Info 07/27/2024 x-ray right knee: Advanced knee arthrosis there is subluxation of thetibia laterally Advanced knee arthrosis there is subluxation of the tibia laterally advanced varus deformity 07/27/2024 x-ray left knee: Advanced knee arthrosis there is subluxation of the tibia laterally advanced varus deformity 06/01/2024 x-ray pelvis: Advanced bilateral hip arthrosis [id number] with bony erosion large cystic changes of the femoral head and acetabulum Coding Level of Care Code Off vis,est,level 4 Diagnoses Rheumatoid arthritis involving both hips with positive rheumatoid factor M05.751; M05.752 Rheumatoid arthritis location: hip Rheumatoid factor presence: with rheumatoid factor Laterality: bilateral Primary osteoarthritis of left hip M16.12 Osteoarthritis type: primary Assessment and Plan Assessment and Plan (1) Rheumatoid arthritis: Status: Acute Qualifiers: Rheumatoid arthritis location: hip Rheumatoid factor presence: with rheumatoid factor Laterality: bilateral Qualified Code(s): M05.751 - Rheumatoid arthritis with rheumatoid factor of right hip without organ or systems involvement; M05.752 - Rheumatoid arthritis with rheumatoid factor of left hip without organ or systems involvement (2) Degenerative joint disease of left hip: Status: Acute Qualifiers: Osteoarthritis type: primary Qualified Code(s): M16.12 - Unilateral primary osteoarthritis, left hip Plan Patient is here today to discuss whether he should do a knee replacement or hip replacement first. I did advise patient that there isn't any protocol on which extremity to replace first. I did advisepatient that radiographically his hips are worse than his knees. I did advise patient that he wouldto be free from nicotine 6 weeks before surgery and 6 weeks after surgery. Patient would like tohave surgery at the end of November. I did advise patient that the day of surgery he will be up and walking. patient will need to stop the etodolac 7 days before surgery, the fish oil 3 weeks before surgery, although there is literature to support continuing methotrexate throughout the perioperative per iod there is still some evidence of lowered immune systems and we discussed possibly discontinuing it for 2 weeks prior is not getting any benefit anyway according to the patient has been on for 5 months and feels worse. I advised patient that his hips are short on both sides and would be at risk for a leg length discrepancy at least in between surgeries he will eventually most likely do his right hip as well. Risks, benefits and alternatives of surgery reviewed including but not limited to bleeding, infection, nerve, foot drop, artery and/or tissue damage, fracture, VTE, leg length discrepancy, dislocation, need for hip precautions, continued pain and expected post-operative course. After s urgery he will have strict hip precautions for 6 weeks of no deep flexion and no reaching to the floor. He will be on Eliquis for 3 weeks post-operatively. Hewill have to do at least of 6 weeks of PTafter surgery. Patient wishes to proceed with a total hip replacement of the left hip on December 29. Same-day surgery He will need medical clearance. I would recommend discontinuing all narcotics before surgery. Follow up at 2 weeks post-op or sooner if pain, swelling, numbness or associatedsymptoms, or concerns develop. All questions answered. Patient in agreement of plan. 11/04/24 1638 Date Too Latham DO Cosigner Signature: Date (if applicable) CC: ~ I have examined the patient and the H&P has been reviewed. There are no clinicalchanges since date of exam. 12/29/24724 Cosigner Signature (if applicable): CC: Dr. Too Latham DO; Dr. Vinh Aguilar MD~ Signed [facility]03-18-2025 [facility] Medical Records Department [address] [place] [address] History Physical Exam 12/29/24724 MR#: [id number] Acct: [id number] Name: MILES TURNER Rep #: [id number] : 1965 59 From: Too Latham DO PCP: Dr. Vinh Aguilar MD Status:[facility] Location: [address] History and Physical Date of Admission: 12/29/24 [facility] [address] [place] [address] [address] [place] [address] OFFICE VISIT Date of Service: 11/04/24 MR#: [id number] Acct: [id number] Name: MILES TURNER Rep #: [id number] : 1965 Provider: Dr. Too Latham DO Age/Sex: 59/M Location[place] [facility] Status: Signed Intake Vital Signs 07/27/2408:18 11/04/2514:56 Height 5 ft 9 in 5 ft 9.5 in Weight: 272 lb 8 oz 265 lb 6 oz BMI 40.2 38.6 Intake Visit Reasons: BILATERAL KNEES Allergies No Known Allergies Allergy (Verified 11/04/24 16:03) Medications ???Medication ???Instructions ???Recorded ???Confirmed ???Type fish oil-dha-epa 1,200 mg-144 1 ea PO DAILY 01/08/18 11/04/24 History mg-216 mg capsule gemfibrozil 600 mg tablet 600 mg PO BIDAC 01/08/18 11/04/24 History cholecalciferol (vitamin D3) 50 50 mcg PO QDAY 07/27/24 11/04/24 History mcg (2,000 unit) capsule etodolac 400 mg tablet 400 mg PO BID 07/27/24 11/04/24 History folic acid 1 mg tablet 1 mg PO QDAY 07/27/24 11/04/24 History leucovorin calcium 15 mg tablet mg PO 07/27/24 11/04/24 History methotrexate sodium 2.5 mg tablet 2.5 mg PO 07/27/24 11/04/24 History omeprazole 40 mg capsule,delayed 40 mg PO QDAY 07/27/24 11/04/24 History release valsartan 320 1 tab PO QDAY 07/27/24 11/04/24 History mg-hydrochlorothiazide 25 mg tablet tramadol 50 mg tablet mg PO 11/04/24 11/04/24 History PFSH Family History (Updated 07/27/24 @ 08:23 by Alisson Capone MA) Mother Heart disease DiabetesFather Heart disease Social History (Updated 07/27/24 @ 08:23 by Alisson Capone MA) household members: spouse Smoking Status: Former smoker alcohol intake: current alcohol intake frequency: holidays/special occasions only HPI BILATERAL KNEES Details: This documentation accurately reflects the service provided and the decisions made by me, Dr. Too Latham, DO 11/04/24812. Part of today???s visit was documented by Michelle FRANZ, acting as scribe. MILES TURNER is a 59 year old M here today for 11/04/2024: Patient is here today to discuss surgery. He wants to talk about if he should do his hips or knees first. He states that he would like to have his left hip replaced but also wants to discuss if the knees would affect PT post-operatively. Dr. Prescott did prescribe him tramadol for pain but he states it doesn't seem to do anything for his pain. He take it at least once a day in the morning. He feels that his pain has gotten worse since being on the Methotrexate. He started taking it in June of 2024. He finds his hip is very debilitating is preventing him from doing things he enjoys he is ready to move forward with joint arthroplasty he denies any numbness or tingling 07/27/2024 office visit: here today for Bilateral knee pain. Patient states that his knees have bothered him for about 6 years. Patient states the only injury to his right knee was he went down on ice and hit a rock no injury to his left. Patient states that his left is worse then right. Patient states he has had injection to his knee. Patient has had the gel injection and cortisone injections. Gel injection lasted about a month maybe a little longer. Cortisone injections last him weeks, maybe a month. Patient has done PT 3 years ago for his knees and he still does the exercises that they taught him. Patient takes Tylenol and Etodolac for his pain. Patient has tired ice and heat, heat is better then ice. Patient states his pain in his knees are all over, he states they are bone on bone. Patient would like to have injection in his knees today if possible. He also has bilateral groin pain worse on the left he did have an injection in the past which was not very helpful. He was only recently diagnosed with rheumatoid arthritis and recently started on methotrexate currently taking 5 tabs of 2.5mg. 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 He denies tobacco or alcohol use. Plan:Educated patient on anatomy and etiology of both knees. Reviewed xrays with patient and informed him that he does have advanced knee arthritis in both knees and both hips. Informed patient about hip injection and advised that I would not re (more content not included)...[facility]03-18-2025 Consult note [facility] Medical Records Department [address] [place] [address] Pre-Anesthesia Evaluation 12/29/24 0646 MR#: [id number] Acct: [id number] Name: MILES TURNER Rep #:[id number] : 1965 59 From: Bobo Diamond MD PCP: Dr. Vinh Aguilar MD Status:R EG SDC Y Race: C Location: [facility] ASA Classification* ASA Classification ASA Classification: 2 (Patient significant risk for obstruction when sedated post spinal. Otherwise, has HTN, GERD, RA. Please keep spine neutral when asleepdue to RA) Assessment & Plan Anesthesia* Anesthesia Assessment Anesthesia Assessment: Discussed sedation and/or anesthesia options, risks, benefits, and alternatives with patient/parents/legal guardian/POA. Questions invited. The patient/parents/legal guardian/POA seems to understand and agrees to proceedwith anesthesia plan. Reviewed the physical assessment, medical history, allergy history and patient home medications list prior to surgery/procedure/anesthetic and documented any changes. Performed airway and anesthesia risk assessments. Anesthesia Type Anesthesia Type: Spinal History Source History Obtained from:: Patient and Chart Anesthesia Focused Assessment* Temperature: 97.9 F Pulse Rate: 84 Blood Pressure: 136/80 Respiratory Rate: 16 Pulse Ox: 95 Oxygen Delivery Method: Room Air Airway Assessment Mouth opens: >3 cm Mallampati Score: III Teeth Condition: Intact and Missing (top right) Neck Range of motion (ROM): Full ROM Focused Labs Anesthesia Preop lab: CBC WBC 8.6 K/mm3 (4.4-11.0) 11/11/24 16:07 11/11/24 RBC 4.59 M/mm3 (4.6-6.2) L 11/11/24 16:07 11/11/24 Hgb 15.5 g/dL (13.0-16.5) 11/11/24 16:07 11/11/24 Hct 45.7 % (40-54) 11/11/24 16:07 11/11/24 Plt Count 249 K/mm3 (150-450) 11/11/24 16:07 11/11/24 CHEMISTRY Potassium 4.0 mmol/L (3.5-5.1) 11/11/24 16:07 11/11/24 Sodium 137 mmol/L (136-145) 11/11/24 16:07 11/11/24 Magnesium 2.2 mg/dL (1.5-2.2) 12/21/24 07:55 12/21/24 BUN 28 mg/dL (7-18) H 11/11/24 16:07 11/11/24 Creatinine 0.84 mg/dL (0.70-1.30) 11/11/24 16:07 11/11/24 Glucose 85 mg/dL (74-106) 11/11/24 16:07 11/11/24 POC Glucose 82 mg/dL (74-106) 12/29/24 05:53 12/29/24 COAG PT 12.8 SECONDS (11.7-14.9) 12/21/24 07:55 Pre-Assessment Diagnosis/Proposed Procedure Planned Operative Procedure(s): LEFT TOTAL HIP ARTHROPLASTY ROBOTIC ASSISITED Anesthesia History Anesthesia History - batch room technician: Anesthesia History - batch room technician Hx Hospitalization No 12/15/24 14:01 Any Problems With Anesthesia No 12/15/24 14:01 Cholinesterase deficiency No 12/15/24 14:01 You/Your Family Experience No 12/15/24 14:01 fever (hyperthermia) with Relationship Recent Exposure to Contagious No 12/29/24 05:57 Disease Does patient have nerve No 12/15/24 14:01 stimulator Patient instructed to have device shut off --Does patient have Pacemaker No 12/29/24 06:05 or ICD? When Was Last Pacemaker Check QUESTION #4 FULL TEXT: You/Your Family Experience fever (hyperthermia) with Anesthesia Last Oral Intake Last Oral intake: Last Oral Intake NPO since 03:30 12/29/24 06:05 Meds taken in AM with sips of Yes 12/29/24 06:05 water? Meds patient instructed to take am of surgery PONV PONV - batch room technician: PONV - batch room technician Female No 12/15/24 14:01 HX of Motion Sickness No 12/15/24 14:01 HX of N/V After Surgery No 12/15/24 14:01 Non-Smoker Yes 12/15/24 14:01 Duration of Surgery greater Yes 12/15/24 14:01 than 60 minutes Number of Risk Factors 2 12/15/24 14:01 PONV Score Moderate Risk 12/15/24 14:01 Height & Weight Height & Weight: Anesthesia: Height & Weight Height 5 ft 9 in 12/29/24 06:05 Weight: 115.212 kg 12/29/24 06:05 Body Mass Index (BMI) 37.5 12/29/24 06:05 Respiratory Assessment Respiratory Assessment - batch room technician: Respiratory Tract Infection Hx - batch room technician Hx Respiratory Tract Infection No 12/15/24 14:01 STOP Sleep Apnea STOP Sleep Apnea - batch room technician: STOP Sleep Apnea - batch room technician Hx Hypertension Yes: CONTROLLED WITH MEDS 12/15/24 14:01 Hx Sleep Apnea No 12/15/24 14:01 CPAP BIPAP Do you snore loudly (louder Yes 12/15/24 14:01 than talking or can be heard Do you often feel tired/ No 12/15/24 14:01 fatigued/ sleepy during daytime? Has anyone observed you stop Yes 12/15/24 14:01 breathing during sleep? STOP Results Positive 12/15/24 14:01 QUESTION #5 FULL TEXT : Do you snore loudly (louder than talking or can be heard through closeddoors)? 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 Tobacco Use Smoking Status Former smoker 12/15/24 14:01 Hx Tobacco Use No 12/15/24 14:01 Years Smoking Packs Smoked per Day Smoking Cessation Date was No - quit smoking greater 12/15/24 14:01 within the last 15 years than 15 years ago Hx Smoking Cessation Date Hx Smoking Cessation Counseling Hematologic Medial History Hematologic Hx - batch room technician: Hematologic Medical Hx - infrastructure manager Hx of Blood Transfusion No 12/15/24 14:01 Hx of Transfusion in last 3 No 12/15/24 14:01 Months Date of Last Transfusion (if within last 3 months) Ever experience any problems No 12/15/24 14:01 with transfusion(s)? Specify any problems Hx of Preganancy in last 3 N/A 12/15/24 14:01 Months Nurse Filling Out Transfusion [id number] 12/15/24 14:01 & Questions: Date: 12/15/24 12/15/24 14:01 Time: 14:06 12/15/24 14:01 Patient unable to answer at this time (ie. confused, unrespo /Reproduction History /Reproductive History - batch room technician: /Reproductive Hx- batch room technician Hx Now Gestational Age (in weeks): EDC: Hx Hx Para Hx Section SAB Active Medications Active Medications: Current Medications Generic Name Dose Route Start Last Admin Trade Name Freq PRN Reason Stop Dose Admin Acetaminophen 1,000 mg 12/29/24 07:30 12/29/24 06:11 Acetaminophen 500 Mg Tablet PO 12/29/24 07:31 1,000 mg X1 ONE Administration Celecoxib 400 mg 12/29/24 07:30 12/29/24 06:11 Celecoxib 200 Mg Capsule PO 12/29/24 07:31 400 mg X1 ONE Administration Dexamethasone Sodium Phosphate 10 mg 12/29/24 07:30 Dexamethasone 10 Mg/Ml Vial IV 12/29/24 07:31 X1 ONE Gabapentin 600 mg 12/29/24 07:30 12/29/24 06:12 Gabapentin 600 Mg Tablet PO 12/29/24 07:31 600 mg X1 ONE Administration Lactated Ringer's 1,000 mls @ 999 mls/hr 12/29/24 07:30 12/29/24 06:21 IV 12/29/24 08:30 999 mls/hr .Q1H1M STEVEN Administration Cefazolin Sodium 3 gm/ N/A 30 mls @ 600 mls/hr 12/29/24 07:30 IV 12/29/24 07:32 PREOP ONE Tranexamic Acid 2,000 mg/ 120 mls @ 660 mls/hr 12/29/24 07:30 Sodium Chloride IV 12/29/24 07:40 X1 ONE Lactated Ringer's 1,000 mls @ 125 mls/hr 12/29/24 07:30 IV 12/29/24 15:29 .Q8H STEVEN Magnesium Sulfate 1 gm/ 102 mls @ 408 mls/hr 12/29/24 07:30 12/29/24 06:22 Dextrose IV 12/29/24 07:44 408 mls/hr X1 ONE Administration Lactated Ringer's 1,000 mls @ 100 mls/hr 12/29/24 06:30 12/29/24 06:25 IV 100 mls/hr .Q10H STEVEN Administration Insulin Human Lispro 1 - 6 unit 12/29/24 07:30 Insulin Lispro 100 Unit/Ml Insuln.Pen SC 12/29/24 18:00 Q4H PRN PRN BG>/= 180, SEE PROTOCOL Protocol Scopolamine HBr 1 patch 12/29/24 07:30 12/29/24 06:12 Scopolamine 1mg/72hr Patch TD 12/29/24 07:31 1 patch X1 ONE Administration PFSH Medical History Wears glasses Colonoscopy planned Gastric reflux History of stress test Former smoker Home Medications ?Medication ?Instructions ?Recorded ?Last Taken ?Type fish oil-dha-epa 1,200 mg-144 1 ea PO DAILY 01/08/18 0 12/22/24 History mg-216 mg capsule gemfibrozil 600 mg tablet 600 mg PO BIDAC 01/08/18 19:00 History cholecalciferol (vitamin D3) 50 50 mcg PO QDAY 4 12/22/24 History mcg (2,000 unit) capsule etodolac 400 mg tablet 400 mg PO BID 07/27/2412/22 History folic acid 1 mg tablet 1 mg PO QDAY 07/27/24 History leucovorin calcium 15 mg tablet 15 mg PO DAILY 4 Unknown History methotrexate sodium 2.5 mg tablet 20 mg PO SA 07/27/24 12/12/24 History omeprazole 40 mg capsule,delayed 40 mg PO QDAY 4 12/29/24 03:30 History release valsartan 320 1 tab PO QDAY 07/27/2412/29 03:30 History mg-hydrochlorothiazide 25 mg tablet tramadol 50 mg tablet 50 mg PO Q12H PRN pain 11/0412/22/24 History prednisone 5 mg tablet 5 mg PO QAM 12/16/24 5 History Allergy/AdvReac Type Severity Reaction Status Date / Time No Known Allergies Allergy Verified 12/29/24 05:55 Family History Mother Heart disease Diabetes Father Heart disease Social History household members: spouse Smoking Status: Former smoker alcohol intake: current alcohol intake frequency: holidays/special occasions only Review of Systems (Anesthesia) ROS Narrative System reviewed and no additional complaints, except as documented. Physical Exam Const alert, oriented x3 and average body habitus Resp normal respiratory effort, normal air movement and clear to auscultation bilaterally Cardio regular rate, regular rhythm, no murmurs and diaphoretic 12/29/24 0652 MD> Date _ Bobo Diamond MD Cosigner Signature: Date CC: ~ Signed [facility]03-10-2025 Instructions* Patient Instructions* Vinh Aguilar MD - 12/21/2024 6:13 PM EDT The morning of surgery, take only your blood pressure medication at the usual time. Stop etodolac 7 days before surgery. documented in this encounterH[facility] NoteHNO ID: [id number] Author: VINH AGUILAR MD Service: ? Author Type: Physician Type: Progress Notes Filed: 12/22/2024 12:36 Note Text: Consultation requested by Dr. Too Latham for an opinion regarding preoperative examination and optimization. My final recommendations will be communicated back to the requesting physician by way of shared Medical record or facsimile with accompanying form. Patient is scheduled for left total hip on 12/29/24. Anesthesia: general anesthesia Cardiovascular risk factors: Yes Hypertension? Yes. 2. Smoking? No. 3. High cholesterol? Yes. 4. Diabetes? No. 5. Obesity? No. 6. Family history of premature CAD? No. Cardiovascular Disease or Symptoms? No CAD? No CHF? No PAD? No CVA? No If POSITIVE, does patient have any of the following? Acute coronary syndrome? Unstable arrhythmias? Decompensated CHF? No If POSITIVE, refer for consultation(s) and multidisciplinary team discussion. If NEGATIVE, estimate perioperative risk. [place] Activity Status Index Score: 42.7. (34 or less, consider further testing). METs: 7.99 metabolic equivalents. (4 or less, consider further testing) Does patient have any of the following risk modifiers? Severe valvular heart disease. Severe pulmonary hypertension . Elevated risk congenital heart disease. Prior coronary stents or CABG. Recent stroke. CIED (Pacemaker/ICD) Frailty. No ACS NSQIP Surgical Risk Calculator: Above average risk for : site infection, renal failure, . Average risk for: thromboembolism. Below average risk for : all other outcomes. ACTIVE PROBLEM LIST Allergic Rhinitis Due to Other Allergen Essential Hypertension Primary Osteoarthritis of Both Knees Hypertriglyceridemia Obesity, Class Iii, Bmi 40-49.9 (Morbid Obesity) ([facility]) Family History of Colon Cancer Gastroesophageal Reflux Disease Without Esophagitis Primary Osteoarthritis of Both Hips History of Compression Fracture of Spine Vitamin D Deficiency Elevated Ferritin Inflammatory Polyarthropathy of Multiple Sites ([facility]) Social History Tobacco Use Smoking status: Former Current packs/day: 0.00 Average packs/day: 1 pack/day for 30.0 years (30.0 ttl pk-yrs) Types: Cigarettes Start date: 05/14/1979 Quit date: 05/14/2009 Years since quittin.6 Smokeless tobacco: Never Tobacco comments: [facility] smokes cigar occasionally Vaping Use Vaping status: Never Used Substance Use Topics Alcohol use: Yes Alcohol/week: 10.0 standard drinks of alcohol Types: 10 Cans of beer per week Comment: 6 beers a week Drug use: No Current Outpatient Medications Medication Sig methotrexate 2.5 mg tablet take 8 tablets by mouth every week predniSONE (DELTASONE) 5 mg tablet Take 5 mg by mouth every morning. traMADol (ULTRAM) 50 mg tablet Take 50 mg by mouth every 8 hours as needed. etodolac (LODINE) 400 mg tablet Take 1 tablet by mouth two times a day. Valsartan-hydroCHLOROthiazide 320-25 mg per tablet Take 1 tablet by mouth once daily. omeprazole (PRILOSEC) 40 mg capsule Take 1 capsule by mouth once daily. gemfibrozil (LOPID) 600 mg tablet Take 1 tablet by mouth two times a day. cholecalciferol, vitamin D3, (VITAMIN D3 ORAL) Take 5,000 Units by mouth once daily. acetaminophen (TYLENOL) 500 mg tablet Take 1 tablet by mouth every 6 hours as needed for Pain. Coral-3 Fatty Acids (FISH OIL) 500 mg cap Take 500 mg by mouth once daily. mv-min/folic/K1/lycopen/lutein (MEN 50 PLUS MULTIVITAMIN ORAL) Take 1 tablet by mouth once daily. TURMERIC ORAL Take 1,000 mg by mouth two times a day. (Patient not taking: Reported on 12/21/2024) COLLAGEN MISC 2 teaspoonsful once daily. (Patient not taking: Reported on 12/21/2024) No current facility-administered medications for this visit. BP 116/78 (BP Site: Left Arm, BP Position: Sitting, BP Cuff Size: Large Adult) Pulse 72 Temp 36.7 ?C (98 ?F) (Temporal) Resp 18 Wt 117.3 kg (258 lb 9.6 oz) BMI 37.02 kg/m? PHYSICAL EXAM: General Appearance: Well appearing, alert, in no acute distress. Eyes: Anicteric sclera. Pupils are equally round and reactive to light. Extraocular movements are intact. . Nose/Sinuses: Negative. Oropharynx: Lips, mucosa, and tongue normal, teeth and gums normal, oropharynx normal. Neck: Supple, no adenopathy; thyroid symmetric, normal size, no bruits. Lungs: Lungs clear to auscultation. No wheezing, rhonchi, rales.. Heart: RRR without murmur, gallop, or rubs. No ectopy. Abdomen: Abdomen soft, non-tender. Bowel sounds normal. No masses, organomegaly. Extremities: No deformities, edema, skin discoloration, clubbing or cyanosis. Good capillary refill. . Neurologic: No focal deficit. Ambulatory with cane. EKG RESULTS: normal EKG, normal sinus rhythm ASSESSMENT/PLAN: 1. Preoperative examination - ICD9: V72.84, ICD10: Z01.818 (primary diagnosis) - Proceed with surgery. - See printed instructions or information. 2. Essent (more content not included)...[facility]03-10-2025 History of Present illness Narrative* Vinh Aguilar MD - 12/21/2024 5:58 PM EDT Consultation requested by Dr. Too Latham for an opinion regarding preoperative examination and optimization. My final recommendations will be communicated back to the requesting physician by way of shared Medical record or facsimile with accompanying form. Patient is scheduled for left total hip on 12/29/24. Anesthesia: general anesthesia Cardiovascular risk factors: Yes Hypertension? Yes. 2. Smoking? No. 3. High cholesterol? Yes. 4. Diabetes? No. 5. Obesity? No. 6. Family history of premature CAD? No. Cardiovascular Disease or Symptoms? No CAD? No CHF? No PAD? No CVA? No If POSITIVE, does patient have any of the following? Acute coronary syndrome? Unstable arrhythmias? Decompensated CHF? No If POSITIVE, refer for consultation(s) and multidisciplinary team discussion. If NEGATIVE, estimate perioperative risk. [place] Activity Status Index Score: 42.7. (34 or less, consider further testing). METs: 7.99 metabolic equivalents. (4 or less, consider further testing) Does patient have any of the following risk modifiers? Severe valvular heart disease. Severe pulmonary hypertension . Elevated risk congenital heart disease. Prior coronary stents or CABG. Recent stroke. CIED (Pacemaker/ICD) Frailty. No ACS NSQIP Surgical Risk Calculator: Above average risk for : site infection, renal failure, . Average risk for: thromboembolism. Below average risk for : all other outcomes. ACTIVE PROBLEM LIST Allergic Rhinitis Due to Other Allergen Essential Hypertension Primary Osteoarthritis of Both Knees Hypertriglyceridemia Obesity, Class Iii, Bmi 40-49.9 (Morbid Obesity) ([facility]) Family History of Colon Cancer Gastroesophageal Reflux Disease Without Esophagitis Primary Osteoarthritis of Both Hips History of Compression Fracture of Spine Vitamin D Deficiency Elevated Ferritin Inflammatory Polyarthropathy of Multiple Sites ([facility]) Social History Tobacco Use Smoking status: Former Current packs/day: 0.00 Average packs/day: 1 pack/day for 30.0 years (30.0 ttl pk-yrs) Types: Cigarettes Start date: 05/14/1979 Quit date: 05/14/2009 Years since quittin.6 Smokeless tobacco: Never Tobacco comments: states smokes cigar occasionally Vaping Use Vaping status: Never Used Substance Use Topics Alcohol use: Yes Alcohol/week: 10.0 standard drinks of alcohol Types: 10 Cans of beer per week Comment: 6 beers a week Drug use: No Current Outpatient Medications Medication Sig methotrexate 2.5 mg tablet take 8 tablets by mouth every week predniSONE (DELTASONE) 5 mg tablet Take 5 mg by mouth every morning. traMADol (ULTRAM) 50 mg tablet Take 50 mg by mouth every 8 hours as needed. etodolac (LODINE) 400 mg tablet Take 1 tablet by mouth two times a day. Valsartan-hydroCHLOROthiazide 320-25 mg per tablet Take 1 tablet by mouth once daily. omeprazole (PRILOSEC) 40 mg capsule Take 1 capsule by mouth once daily. gemfibrozil (LOPID) 600 mg tablet Take 1 tablet by mouth two times a day. cholecalciferol, vitamin D3, (VITAMIN D3 ORAL) Take 5,000 Units by mouth once daily. acetaminophen (TYLENOL) 500 mg tablet Take 1 tablet by mouth every 6 hours as needed for Pain. Coral-3 Fatty Acids (FISH OIL) 500 mg cap Take 500 mg by mouth once daily. mv-min/folic/K1/lycopen/lutein (MEN 50 PLUS MULTIVITAMIN ORAL) Take 1 tablet by mouth once daily. TURMERIC ORAL Take 1,000 mg by mouth two times a day. (Patient not taking: Reported on 12/21/2024) COLLAGEN MISC 2 teaspoonsful once daily. (Patient not taking: Reported on 12/21/2024) No current facility-administered medications for this visit. BP 116/78 (BP Site: Left Arm, BP Position: Sitting, BP Cuff Size: Large Adult) Pulse 72 Temp 36.7 C (98 F) (Temporal) Resp 18 Wt 117.3 kg (258 lb 9.6 oz) BMI 37.02 kg/m PHYSICAL EXAM: General Appearance: Well appearing, alert, in no acute distress. Eyes: Anicteric sclera. Pupils are equally round and reactive to light. Extraocular movements are intact. . Nose/Sinuses: Negative. Oropharynx: Lips, mucosa, and tongue normal, teeth and gums normal, oropharynx normal. Neck: Supple, no adenopathy; thyroid symmetric, normal size, no bruits. Lungs: Lungs clear to auscultation. No wheezing, rhonchi, rales.. Heart: RRR without murmur, gallop, or rubs. No ectopy. Abdomen: Abdomen soft, non-tender. Bowel sounds normal. No masses, organomegaly. Extremities: No deformities, edema, skin discoloration, clubbing or cyanosis. Good capillary refill. . Neurologic: No focal deficit. Ambulatory with cane. EKG RESULTS: normal EKG, normal sinus rhythm ASSESSMENT/PLAN: 1. Preoperative examination - ICD9: V72.84, ICD10: Z01.818 (primary diagnosis) - Proceed with surgery. - See printed instructions or information. 2. Essential hypertension - ICD9: 401.9, ICD10: I10 - Controlled - Take medication on the day of surgery. 3. Primary osteoarthritis of both hips - ICD9: 715.15, ICD10: M16.0 - For left total hip. 4. Primary osteoarthritis of both knees - ICD9: 715.16, ICD10: M17.0 - Stable. 5. Inflammatory polyarthropathy of multiple sites (HCC) - ICD9: 714.9, ICD10: M06.4 - He will stop prednisone and methotrexate as instructed by his associate professor of geography. Vinh Aguilar MD documented in this encounterH[facility] Evaluation note* Diagnosis Onset Date Resolution Status Admit Date Bilateral primary osteoarthr itis of knee acute December 16, 2024 3:58pm Orthopedic aftercare acute [facility] h 2024 10:36am AVN of femur acute February 08, 2025 10:15am Rheumatoid arthritis acute [facility] 2024 10:15am Other acute postprocedural pain acut e February 23, 2025 8:02am [facility] Work Phone: 1(398) 466-594603-05-2025 Evaluation note* Diagnosis Onset Date Resolution Status Admit Date Bilateral primary osteoarthr itis of knee acute December 16, 2024 3:58pm Orthopedic aftercare acute [facility] h 2024 10:36am AVN of femur acute February 08, 2025 10:15am Rheumatoid arthritis acute [facility] 2024 10:15am Other acute postprocedural pain acut e February 23, 2025 8:02am Orthopedic aftercare acute March 10, 2025 9:02am [facility] Work Phone: 1(666) 212-582403-03-2025 Radiology Diagnostic study note [facility] Imaging Services [address] [place], [place] [address] Extremity Lower without Contra MR#: [id number] Acct: [id number] Name: MILES TURNER Rep #: [id number] : 1965 M 59 From: Drake Selby MD PCP: Dr. Vinh Aguilar MD Status: R EG CLI Study:Extremity Lower without Contra Date of Exam: 12/11/24 Exam# [id number] Ordering Dr: Too Latham DO PROCEDURE: EXTREMITY LOWER WITHOUT CONTRA REASON FOR EXAM: Templating for left total hip replacement. Sam protocol TECHNIQUE: Multiple axial tomographic images of the hips and both knees were obtained without intravenous contrast administration. CONTRAST: None COMPARISON: None. FINDINGS: Bones: No evidence of fracture. Joints: Imaging of both hip joints was obtained. There is a marked degree of joint space narrowing of the left hip joint with subchondral cystic changes involving the acetabulum and femoral head. Findings may represent avascular necrosis. There is also evidence of a marked degree of joint space narrowing of the right hip joint although no significantevidence of avascular necrosis. Marked degree of joint space narrowing involving both medial compartments of theknee joint. Osteoarthritis of the patellofemoral joint. Soft Tissues: Unremarkable. CT/Extremity Lower without Contra IMPRESSION: Marked degree of joint space narrowing involving both hip joints worse on the left side with findings suggestive of avascular necrosis. Marked degree of joint space narrowing involving the medial compartments of bothknee joints. One or more dose reduction techniques were used (e.g., Automated exposure control, adjustment of the mA and/or kV according to patient size, use of iterative reconstruction technique). Reading Location: [id number] CC: Dr. Too Latham DO; Dr. Vinh Aguilar MD ~ Car Checker: Signed [facility]02-24-2025 Telephone encounter Note* Telephone Encounter - Marnie Pastrana LPN - 12/07/2024 1:49 PM EST Patient has been identified by name and date of : Yes Patient phones for refill(s): Requested Prescriptions Pending Prescriptions Disp Refills etodolac (LODINE) 400 mg tablet 60 tablet 5 Sig: Take 1 tablet by mouth two times a day. Date of last office visit in primary care: 05/15/2024 Date of next office visit in primary care: 12/21/2024 Please advise. Thank you. Marnie Pastrana LPN. [facility]02-24-[facility] Miscellaneous Notes* Telephone Encounter - Marnie Pastrana LPN - 12/07/2024 1:49 PM EST Patient has been identified by name and date of : Yes Patient phones for refill(s): Requested Prescriptions Pending Prescriptions Disp Refills etodolac (LODINE) 400 mg tablet 60 tablet 5 Sig: Take 1 tablet by mouth two times a day. Date of last office visit in primary care: 05/15/2024 Date of next office visit in primary care: 12/21/2024 Please advise. Thank you. Marnie Pastrana LPN. documented in this encounterH[facility]02-18-2025 Telephone encounter Note * Telephone Encounter - Alycia Patricia LPN - 12/01/2024 11:57 AM EST Pt out of medication. The patient has been identified by name and date of : Yes Caregiver verified no other encounters exist for this prescription request: Yes Caregiver confirmed with patient/requestor that no other refills are due, in the near future, with this provider at this time: Yes The last office visit in the department: 05/15/2024 Does the patient have a future office visit with this provider/department: Yes 12/21/2024 Requested Prescriptions Pending Prescriptions Disp Refills Valsartan-hydroCHLOROthiazide 320-25 mg per tablet 90 tablet 3 Sig: Take 1 tablet by mouth once daily. Alycia Patricia LPN December 01, 2024 11:57 AM [facility]02-18-20[facility] Miscellaneous Notes* Telephone Encounter - Alycia Patricia LPN - 12/01/2024 11:57 AM EST Pt out of medication. The patient has been identified by name and date of : Yes Caregiver verified no other encounters exist for this prescription request: Yes Caregiver confirmed with patient/requestor that no other refills are due, in the near future, with this provider at this time: Yes The last office visit in the department: 05/15/2024 Does the patient have a future office visit with this provider/department: Yes 12/21/2024 Requested Prescriptions Pending Prescriptions Disp Refills Valsartan-hydroCHLOROthiazide 320-25 mg per tablet 90 tablet 3 Sig: Take 1 tablet by mouth once daily. Alycia Patricia LPN December 01, 2024 11:57 AM documented in this encounterHocking [facility]02-11-2025 Telephone encounter Note * Telephone Encounter - Lakshmi Paula LPN - 11/24/2024 4:54 PM EST appt with pcp 12/21/24. [facility]02-[facility] Miscellaneous Notes* Telephone Encounter - Lakshmi Paula LPN - 11/24/2024 4:54 PM EST appt with pcp 12/21/24. * Telephone Encounter - Lakshmi Paula LPN - 11/24/2024 2:32 PM EST Fax rec'd from Dr. Ltaham's office noting pt is having left total hip arthroplasty 12/29/24. Pt will need to see pcp or his ETCHER ENAMELING within 30 days of scheduled surgery. Message left for pt to return call to arrange a 40 minute pre op clearance appt. documented in this encounterHock[facility]02-11-2025 Telephone encounter Note * Telephone Encounter - Lakshmi Paula LPN - 11/24/2024 2:32 PM EST Fax rec'd from Dr. Latham's office noting pt is having left total hip arthroplasty 12/29/24. Pt will need to see pcp or his ETCHER ENAMELING within 30 days of scheduled surgery. Message left for pt to return call to arrange a 40 minute pre op clearance appt. [facility]01-31-[facility] Miscellaneous Notes* Telephone Encounter - Anival Rodriguez RN - 11/13/2024 4:54 PM EST Patient reports he is having a hip replacement with [facility] on 12-29-24. Asking if he needs to schedule with pre-op with pcp or surgeon. Patient will call the surgeon and ask them. Advised if he needs pre-op appt with pcp would need to schedule within 30 days of surgery. documented in this encounterH[facility]01-31-2025 Telephone encounter Note * Telephone Encounter - Anival Rodriguez RN - 11/13/2024 4:54 PM EST Patient reports he is having a hip replacement with [facility] on 12-29-24. Asking if he needs to schedule with pre-op with pcp or surgeon. Patient will call the surgeon and ask them. Advised if he needs pre-op appt with pcp would need to schedule within 30 days of surgery. [facility]01-[facility] Evaluation note* Diagnosis Onset Date Resolution Status Admit Date 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 acute November 04 3:53pm Rheumatoid arthritis acute 2024 3:53pm Bilateral primary osteoarthr itis of knee acute December 16, 2024 3:58pm [facility] Work Phone: 1(383) 237-742001-22-2025 Evaluation note* Diagnosis Onset Date Resolution Status Admit Date 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 acute November 04 3:53pm Rheumatoid arthritis acute 2024 3:53pm Bilateral primary osteoarthr itis of knee acute December 16, 2024 3:58pm Orthopedic aftercare acute [facility] 2024 10:36am AVN of femur acute February 08, 2025 10:15am Rheumatoid arthritis acute [facility] 2024 10:15am [facility] Work Phone: 1(628) 944-209601-22-2025 Evaluation note* Diagnosis Onset Date Resolution Status Admit Date 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 acute November 04 3:53pm Rheumatoid arthritis acute 2024 3:53pm Bilateral primary osteoarthr itis of knee acute December 16, 2024 3:58pm Orthopedic aftercare acute [facility] 2024 10:36am AVN of femur acute February 08, 2025 10:15am Rheumatoid arthritis acute Apr l 2024 10:15am Other acute postprocedural pain acut e February 23, 2025 8:02am [facility] Work Phone: 1(355) 390-938909-04-2024 Telephone encounter Note* Telephone Encounter - Jessica Olsen RN - 06/17/2024 11:22 AM EDT The patient has been identified by name and date of : Yes Caregiver verified no other encounters exist for this prescription request: Yes Caregiver confirmed with patient/requestor that no other refills are due, in the near future, with this provider at this time: Yes The last office visit in the department: 05/15/2024 Does the patient have a future office visit with this provider/department: Yes 11/18/2024 Requested Prescriptions Pending Prescriptions Disp Refills omeprazole (PRILOSEC) 40 mg capsule 90 capsule 3 Sig: Take 1 capsule by mouth once daily. Jessica Olsen RN June 17, 2024 11:22 AM [facility]09-04-2024 Miscellaneous Notes* Telephone Encounter - Jessica Olsen RN - 06/17/2024 11:22 AM EDT The patient has been identified by name and date of : Yes Caregiver verified no other encounters exist for this prescription request: Yes Caregiver confirmed with patient/requestor that no other refills are due, in the near future, with this provider at this time: Yes The last office visit in the department: 05/15/2024 Does the patient have a future office visit with this provider/department: Yes 11/18/2024 Requested Prescriptions Pending Prescriptions Disp Refills omeprazole (PRILOSEC) 40 mg capsule 90 capsule 3 Sig: Take 1 capsule by mouth once daily. Jessica Olsen RN June 17, 2024 11:22 AM documented in this encounterHocking [facility]08-[facility] Telephone encounter Note * Telephone Encounter - Vinh Aguilar MD - 06/08/2024 1:39 PM EDT The following approved medication requests have been transmitted electronically. Requested Prescriptions Signed Prescriptions Disp Refills etodolac (LODINE) 400 mg tablet 60 tablet 5 Sig: Take 1 tablet by mouth two times a day. Authorizing Provider: VINH AGUILAR MD [facility]08-26-2024 Miscellaneous Notes* Telephone Encounter - Vinh Aguilar MD - 06/08/2024 1:39 PM EDT The following approved medication requests have been transmitted electronically. Requested Prescriptions Signed Prescriptions Disp Refills etodolac (LODINE) 400 mg tablet 60 tablet 5 Sig: Take 1 tablet by mouth two times a day. Authorizing Provider: VINH AGUILAR MD * Telephone Encounter - Anival Rodriguez RN - 06/08/2024 8:22 AM EDT Patient reports [facility], tells him Lodine was discontined by pcp. Reports he is not taking ibuprofen. Reports Dr. Prescott, advised him he should be taking the Lodine. Asking pcp to send Rx for Lodine to [facility]. Pended. documented in this encounterHocking [facility]08-26-2024 Telephone encounter Note * Telephone Encounter - Anival Rodriguez RN - 06/08/2024 8:22 AM EDT Patient reports [facility], tells him Lodine was discontined by pcp. Reports he is not taking ibuprofen. Reports Dr. Prescott, advised him he should be taking the Lodine. Asking pcp to send Rx for Lodine to [facility]. Pended. [facility] Telephone encounter Note* Telephone Encounter - Vinh Aguilar MD - 05/29/2024 1:16 PM EDT The following approved medication requests have been transmitted electronically. Requested Prescriptions Signed Prescriptions Disp Refills ibuprofen (MOTRIN) 800 mg tablet 90 tablet 2 Sig: Take 1 tablet by mouth every 8 hours as needed for pain. Take with food. Authorizing Provider: VINH AGUILAR MD [facility]08-16-2024 Miscellaneous Notes* Telephone Encounter - Vinh Aguilar MD - 05/29/2024 1:16 PM EDT The following approved medication requests have been transmitted electronically. Requested Prescriptions Signed Prescriptions Disp Refills ibuprofen (MOTRIN) 800 mg tablet 90 tablet 2 Sig: Take 1 tablet by mouth every 8 hours as needed for pain. Take with food. Authorizing Provider: VINH AGUILAR MD * Telephone Encounter - Pau Roberts LPN - 05/29/2024 9:21 AM EDT Patient calling asking if he could have something else for pain? 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 He said he uses Etodlac 400 mg one tablet twice daily, but not helping much, lasts for few hours. He can not get appt with Rheumatology until later June or later. Patient uses [facility] his [facility]. Please advise documented in this encounterHocking [facility]08-16-2024 Telephone encounter Note * Telephone Encounter - Pau Roberts LPN - 05/29/2024 9:21 AM EDT Patient calling asking if he could have something else for pain? 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 He said he uses Etodlac 400 mg one tablet twice daily, but not helping much, lasts for few hours. He can not get appt with Rheumatology until later June or later. Patient uses [facility] for his pharmacy. Please advise [facility]08-08-2024 Telephone encounter Note* Telephone Encounter - Jud Lopez RN - 05/21/2024 3:40 PM EDT Spoke with patient. Given message from provider's office. Patient verbalizes understanding. Patient says he will call Dr. Prescott's office to find out if she is accepting new patients and isin network with his insurance. Jud Lopez RN [facility]08-08-2024 Telephone encounter Note* Telephone Encounter - Hailey Fernando RN - 05/21/2024 3:40 PM EDT Called and left a detailed voicemail notifying patient of providers message. Clinic phone number was left in case patient had any questions. Faxed order, demographic sheet, labs, and last OV note to Dr Prescott at fax # [phone]. Hailey Fernando RN [facility]08-08-2024 Miscellaneous Notes* Telephone Encounter - Jud Lopez RN - 05/21/2024 3:40 PM EDT Spoke with patient. Given message from provider's office. Patient verbalizes understanding. Patient says he will call Dr. Prescott's office to find out if she is accepting new patients and isin network with his insurance. Jud Lopez RN * Telephone Encounter - Hailey Fernando RN - 05/21/2024 3:40 PM EDT Called and left a detailed voicemail notifying patient of providers message. Clinic phone number was left in case patient had any questions. Faxed order, demographic sheet, labs, and last OV note to Dr Prescott at fax # [phone]. Hailey Fernando RN * Telephone Encounter - Vinh Aguilar MD - 05/21/2024 1:35 PM EDT 1) His labs were unremarkable, except for elevated iron transport protein. He can resume gemfibrozil. More tests ordered for ferritin, do any time after 2 weeks. 2) Per patient request, refer to local rheumatology for opinion on joint pains. [facility], Dr. Kalli Prescott. Attach labs. * Telephone Encounter - Maryjane Aaron RN - 05/20/2024 4:00 PM EDT Pt calling in for his lab results and asking about a referral to the arthritis doctor at [place] with [facility]. Pt also concerned about his lipid profile results. Pt has not stopped his cholesterol medication at all and states he is still having pain. Wondering his next steps. documented in this encounterHocking Valley [facility]08-08-2024 Telephone encounter Note * Telephone Encounter - Vinh Aguilar MD - 05/21/2024 1:35 PM EDT 1) His labs were unremarkable, except for elevated iron transport protein. He can resume gemfibrozil. More tests ordered for ferritin, do any time after 2 weeks. 2) Per patient request, refer to local rheumatology for opinion on joint pains. [facility]er [facility], Dr. Kalli Prescott. Attach labs. [facility]08-07-2024 Telephone encounter Note* Telephone Encounter - Maryjane Aaron RN - 05/20/2024 4:00 PM EDT Pt calling in for his lab results and asking about a referral to the arthritis doctor at [place] with [facility]. Pt also concerned about his lipid profile results. Pt has not stopped his cholesterol medication at all and states he is still having pain. Wondering his next steps. [facility]08-02-[facility] History of Present illness Narrative* Vinh Aguilar MD - 05/15/2024 8:18 AM EDT This note was created using [employer]. Subjective Patient presents with: Yearly Exam: Fasting for labs Miles Turner is a 58 year old male. His hypertension and and hypertriglyceridemia were controlled. His joint pains of the hips and knees were progressing, left more than right. Hip injection of the right did not help much. 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 Lodine and turmeric seemed to help. He was interested in a rheumatology opinion while postponing surgical option. He sees orthopedics, and goes to [facility] for optometry. Review of Systems Constitutional: Negative for appetite change, fatigue, fever and unexpected weight change. HENT: Negative for congestion and sore throat. Eyes: Negative for visual disturbance. Respiratory: Negative for cough, shortness of breath and wheezing. Cardiovascular: Negative for chest pain, palpitations and leg swelling. Gastrointestinal: Negative for abdominal pain, constipation and diarrhea. Genitourinary: Negative for difficulty urinating and dysuria. Musculoskeletal: Positive for arthralgias and gait problem. Negative for back pain and joint swelling. Skin: Negative. Neurological: Negative for dizziness and headaches. Psychiatric/Behavioral: Negative for dysphoric mood. The patient is not nervous/anxious. PAST MEDICAL HISTORY No date: ALLERGIC RHINITIS NEC 11/24/2007: Essential hypertension 05/26/2021: History of compression fracture of spine No date: History of tobacco use Comment: 30 pack years 01/08/2018: Hydronephrosis Comment: mild left 06/21/2015: Hypertriglyceridemia Comment: No date: Internal hemorrhoids without mention of complication 01/08/2018: Kidney stone Comment: left 06/21/2015: Obesity, Class III, BMI 40-49.9 (morbid obesity) ([facility]) 05/26/2021: Primary osteoarthritis of both hips 03/30/2014: Primary osteoarthritis of both knees No date: Snoring 06/09/2019: Thyroid nodule PAST SURGICAL HISTORY 07/30/2011: COLONOSCOPY FLX DX W/COLLJ SPEC WHEN PFRMD Comment: repeat due 2015 ([facility]) 07/06/2016: COLONOSCOPY FLX DX W/COLLJ SPEC WHEN PFRMD Comment: normal - 5 year follow up for family history 06/04/2022: COLONOSCOPY SCREENING Comment: . benign polyp, repeat in 5 years based on family history 02/14/2024: IMAGING GUIDED HIP INJECTION RIGHT 06/19/2019: THYROID BIOPSY US No date: VASECTOMY UNI/BI SPX W/POSTOP SEMEN EXAMS FAMILY HISTORY Problem Relation Age of Onset Heart Mother Cancer Father colon - ? - age 70 Heart Father No Known Problems Sister No Known Problems Brother Colon Cancer Paternal Uncle Social History Tobacco Use Smoking status: Former Packs/day: 1.00 Years: 30.00 Additional pack years: 0.00 Total pack years: 30.00 Types: Cigarettes Quit date: 05/14/2009 Years since quittin.0 Smokeless tobacco: Never Tobacco comments: states smokes cigar occasionally Vaping Use Vaping Use: Never used Substance Use Topics Alcohol use: Yes Alcohol/week: 10.0 standard drinks of alcohol Types: 10 Cans of beer per week Comment: 6 beers a week Drug use: No ALLERGIES No Known Allergies Current Outpatient Medications Medication Sig TURMERIC ORAL Take 1,000 mg by mouth two times a day. COLLAGEN MISC 2 teaspoonsful once daily. gemfibrozil (LOPID) 600 mg tablet Take 1 tablet by mouth two times a day. etodolac (LODINE) 400 mg tablet Take 1 tablet by mouth two times a day. Valsartan-hydroCHLOROthiazide 320-25 mg per tablet Take 1 tablet by mouth once daily. omeprazole (PRILOSEC) 40 mg capsule Take 1 capsule by mouth once daily. cholecalciferol, vitamin D3, (VITAMIN D3 ORAL) Take 5,000 Units by mouth once daily. acetaminophen (TYLENOL) 500 mg tablet Take 1 tablet by mouth every 6 hours as needed for Pain. Coral-3 Fatty Acids (FISH OIL) 500 mg cap Take 500 mg by mouth once daily. No current facility-administered medications for this visit. Objective BP 114/68 Pulse 73 Temp 37.1 C (98.8 F) Resp 16 Ht 178 cm (5' 10.08) Wt 124 kg (273 lb 5.9 oz) SpO2 97% BMI 39.14 kg/m Physical Exam Constitutional: Appearance: He is not ill-appearing. HENT: Head: Normocephalic. Nose: Nose normal. Eyes: General: No scleral icterus. Extraocular Movements: Extraocular movements intact. Conjunctiva/sclera: Conjunctivae normal. Cardiovascular: Rate and Rhythm: Normal rate and regular rhythm. Heart sounds: No murmur heard. No gallop. Pulmonary: Breath sounds: Normal breath sounds. Abdominal: Palpations: Abdomen is soft. There is no mass. Tenderness: There is no abdominal tenderness. Musculoskeletal: General: No tenderness. Cervical back: Neck supple. No tenderness. Thoracic back: Deformity present. No tenderness. Scoliosis present. Right hip: No tenderness. Decreased range of motion. Left hip: No tenderness. Decreased range of motion. Decreased strength. Right knee: Deformity present. No swelling or effusion. Decreased range of motion. Left knee: Deformity present. No swelling or effusion. Decreased range of motion. Right lower leg: No edema. Left lower leg: No edema. Lymphadenopathy: Cervical: No cervical adenopathy. Skin: Comments: Multiple axillary acrochordons. Few seborrheic keratosis of back, shoulders. Neurological: General: No focal deficit present. Mental Status: He is alert. Motor: Weakness present. Gait: Gait abnormal. Comments: Difficulty climbing onto exam table. Psychiatric: Mood and Affect: Mood normal. Assessment and Plan 1. Routine medical exam - ICD9: V70.0, ICD10: Z00.00 (primary diagnosis) - Counseled on healthy diet and regular exercise - Discussed need for and benefit of weight loss. BMI 39.14 kg/(m^2) 2. Essential hypertension - ICD9: 401.9, ICD10: I10 - Controlled - Continue current medications - Encouraged sodium restriction, DASH or Mediterranean diet - Recommend regular aerobic exercise 3. Primary osteoarthritis of both knees - ICD9: 715.16, ICD10: M17.0 Progressing. Depending on tests, rheumatology will be discussed. - SEDIMENTATION RATE, WESTERGREN - C-REACTIVE PROTEIN - FERRITIN - RHEUMATOID FACTOR 4. Primary osteoarthritis of both hips - ICD9: 715.15, ICD10: M16.0 Progressing. - SEDIMENTATION RATE, WESTERGREN - C-REACTIVE PROTEIN - FERRITIN - RHEUMATOID FACTOR 5. Leg weakness, bilateral - ICD9: 729.89, ICD10: R29.898 Secondary. We discussed physical therapy. He was already doing exercises from PT. - CREATINE KINASE/CK - ALDOLASE BLD 6. Screening for depression - ICD9: V79.0, ICD10: Z13.31 Neg. - DEPRESSION SCREENING 7. Encounter for screening examination for other mental health and behavioral disorders - ICD9: V79.8, ICD10: Z13.39 Neg. - ANXIETY SCREENING 8. 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 Vinh Aguilar MD documented in this encounterHocking [facility]07-25-2024 Telephone encounter Note * Telephone Encounter - Jerilyn Neves - 05/07/2024 4:14 PM EDT Prescription Refill Information The patient has been identified by name and date of : Yes Caregiver verified no other encounters exist for this prescription request: Yes Caregiver confirmed with patient/requestor that no other refills are due, in the near future, with this provider at this time: Yes The last office visit in the department: 11/15/23 Does the patient have a future office visit with this provider/department: Yes Requested Prescriptions Pending Prescriptions Disp Refills gemfibrozil (LOPID) 600 mg tablet 180 tablet 3 Sig: Take 1 tablet by mouth two times a day. Jerilyn Egan May 07, 2024 4:14 PM [facility]07-25-2024 Miscellaneous Notes* Telephone Encounter - Jerilyn Neves - 05/07/2024 4:14 PM EDT Prescription Refill Information The patient has been identified by name and date of : Yes Caregiver verified no other encounters exist for this prescription request: Yes Caregiver confirmed with patient/requestor that no other refills are due, in the near future, with this provider at this time: Yes The last office visit in the department: 11/15/23 Does the patient have a future office visit with this provider/department: Yes Requested Prescriptions Pending Prescriptions Disp Refills gemfibrozil (LOPID) 600 mg tablet 180 tablet 3 Sig: Take 1 tablet by mouth two times a day. Jerilyn Egan May 07, 2024 4:14 PM documented in this encounterHocking Valley [facility]05-03-2024 Procedure [facility]04-29-2024 Telephone encounter Note* Telephone Encounter - Elizabeth Perry MA - 02/10/2024 9:51 AM EDT New order faxed to [facility]. Confirmation received. [facility]04-29-2024 Miscellaneous Notes* Telephone Encounter - Elizabeth Perry MA - 02/10/2024 9:51 AM EDT New order faxed to [facility]. Confirmation received. * Telephone Encounter - Gilda Rutherford PA-C - 02/06/2024 1:45 PM EDT Order signed. * Telephone Encounter - Elizabeth Perry MA - 02/06/2024 10:58 AM EDT Order needs to be changed for hip injection at [facility]. Please sign new order. documented in this encounterHocking Valley [facility] Hospital04-25-2024 Telephone encounter Note * Telephone Encounter - Gilda Rutherford PA-C - 02/06/2024 1:45 PM EDT Order signed. [facility]04-25-2024 Telephone encounter Note* Telephone Encounter - Elizabeth Perry MA - 02/06/2024 10:58 AM EDT Order needs to be changed for hip injection at [facility]. Please sign new order. [facility]04-25-2024 Telephone encounter Note* Telephone Encounter - Wendy Wahl - 02/06/2024 8:47 AM EDT Patient has been identified by name and date of : Yes, Provider ARIE Patient phones for refill(s): Requested Prescriptions Pending Prescriptions Disp Refills etodolac (LODINE) 400 mg tablet Sig: Take 1 tablet by mouth two times a day. Date of last office visit in primary care: 02/03/2024 Date of next office visit in primary care: Visit date not found PATIENT ADVISED TO REQUEST ETODOLAC IF GENERIC VOLTAREN IS NOT HELPING. CONFIRMED PHARMACY Please advise. Thank you. Wendy Wahl. [facility]04-25-2024 Miscellaneous Notes* Telephone Encounter - Wendy Wahl - 02/06/2024 8:47 AM EDT Patient has been identified by name and date of : Yes, Provider ARIE Patient phones for refill(s): Requested Prescriptions Pending Prescriptions Disp Refills etodolac (LODINE) 400 mg tablet Sig: Take 1 tablet by mouth two times a day. Date of last office visit in primary care: 02/03/2024 Date of next office visit in primary care: Visit date not found PATIENT ADVISED TO REQUEST ETODOLAC IF GENERIC VOLTAREN IS NOT HELPING. CONFIRMED PHARMACY Please advise. Thank you. Wendy Wahl. documented in this encounterHocking Valley Community Hospital04-22-2024 History of Present illness Narrative* Elizabeth Perry MA - 02/03/2024 11:25 AM EDT Order for hip injection faxed to [facility] scheduling, radiology, and pharmacy. Confirmation received. Referral placed. * Gilda Rutherford PA-C - 02/03/2024 8:25 AM EDTAssociated Order(s): Large Joint Arthro/Inj: bilateral knee joints Post-Procedure Diagnose(s): Primary osteoarthritis of both knees Gilda Rutherford PA-C Department of Orthopaedics Orthopaedics [address] [facility] [address] Dept: [phone] Dept February 03, 2024 CHIEF COMPLAINT: Established Patient and Pain of the Left Knee and Established Patient and Pain of the Right Knee. ASSESSMENT: M16.11 Primary osteoarthritis of right hip (primary encounter diagnosis) M17.0 Primary osteoarthritis of both knees SUMMARY/PLAN: Patient presents requesting repeat bilateral corticosteroid injections in the knees. He did get some relief in his knee pain with viscosupplementation, however starting to have increased pain in his hips, right is new, left has been bothering him for years. He is interested in trying a different oral anti- inflammatory, is currently taking Lodine which she does find to be effective. Did not find Celebrex or meloxicam to be helpful. Will proceed with repeat bilateral knee corticosteroid injections today, I did order a right hip intra-articular corticosteroid injection, order was faxed to [facility]. We will get him on some oral diclofenac in place of the Lodine to see if it helps him more with pain and discomfort. Large Joint Arthro/Inj: bilateral knee joints Informed Consent Consent Obtained: Verbal Lenore Protocol A moment to CARE was completed. SIGN IN Sign in communication not applicable due to emergent procedure. Personnel directly involved with the procedure wore the appropriate PPE. Special Equipment: N/A Patient/Surrogate Stated/Verified: Patient name, Date of , Relevant allergies and Intended procedure TIME OUT Intended patient and procedure match the source document(s). Consent documented and matches the intended procedure. Relevant labs, photos, and/or imaging studies have been reviewed. Correct side/site marked and visible. Medications required for procedure verified. No fire risk assessment and interventions applicable. No implant(s) inserted. 02/03/2024 8:26 AM The procedure site was prepped in the usual sterile fashion. Site: bilateral knee joints Medications (Right): 6 mg betamethasone acetate-betamethasone sodium phosphate 6 mg/mL Medications (Left): 6 mg betamethasone acetate-betamethasone sodium phosphate 6 mg/mL Anesthetics (Right): 5 mL lidocaine (PF) 10 mg/mL (1 %) Anesthetics (Left): 5 mL lidocaine (PF) 10 mg/mL (1 %) Outcome: Tolerated well, no immediate complications Post-injection instructions were reviewed with the patient and the patient voiced understanding of these instructions. SIGN OUT No instruments, equipment or retained foreign bodies applicable. Mr. Miles Turner was advised as to contrast therapies and/or to take analgesics/anti-inflammatories as needed and all contraindications were reviewed. Supporting Information Below: Medications: Current Outpatient Medications Medication Sig Valsartan-hydroCHLOROthiazide 320-25 mg per tablet Take 1 tablet by mouth once daily. omeprazole (PRILOSEC) 40 mg capsule Take 1 capsule by mouth once daily. gemfibrozil (LOPID) 600 mg tablet Take 1 tablet by mouth twice daily. cholecalciferol, vitamin D3, (VITAMIN D3 ORAL) Take 5,000 Units by mouth once daily. acetaminophen (TYLENOL) 500 mg tablet Take 1 tablet by mouth every 6 hours as needed for Pain. Coral-3 Fatty Acids (FISH OIL) 500 mg cap Take 500 mg by mouth once daily. diclofenac, EC, (VOLTAREN) 75 mg EC tablet Take 1 tablet by mouth two times a day. FOR PAIN No current facility-administered medications for this visit. Allergies: Patient has no known allergies. This note was partially generated using [employer] voice recognition system, and there may be some incorrect words, spellings, and punctuation that were not noted in checking the note before saving. Gilda Rutherford PA-C * Elizabeth Perry MA - 02/03/2024 7:40 AM EDT AMB ROOMING INTAKE FLOWSHEET DATA Pain Pain Level: 8 Pain Location: (bilateral knees) Description: Dull Duration Amount of Time: (ongoing) Frequency: Continuous Intervention/Comfort measure: Medication documented in this encounterHocking Valley [facility] Hospital04-20-2024 Miscellaneous Notes* Telephone Encounter - Angelica Olivares LPN - 02/01/2024 10:03 AM EDT Patient notified and booked appointment at 11am today with . Angelica Olivares LPN * Telephone Encounter - Gerson Douglas MD - 02/01/2024 9:17 AM EDT Hard to evaluate over the phone without knowing him on the weekend. Can try things like voltaren gel otc until he gets back into ortho * Telephone Encounter - Angelica Olivares LPN - 02/01/2024 8:14 AM EDT Patient is wanting to know if he can have anything for pain. Patient c/o joint pain in hips and knees, pain scale is 8-9/10. Patient has been taking tylenol and ibuprofen with minimal relief. Patientdoes have an appointment on Saturday with Ortho - Danika Rutherford for possible injection. Please review and advise further Angelica Olivares LPN documented in this encounterHock[facility] History of Present illness Narrative* Gilda Rutherford PA-C - 12/02/2023 3:40 PM ESTAssociated Order(s): Large Joint Arthro/Inj: bilateral knee joints Post-Procedure Diagnose(s): Primary osteoarthritis of both knees Large Joint Arthro/Inj: bilateral knee joints Informed Consent Consent Obtained: Verbal Lenore Protocol A moment to CARE was completed. SIGN IN Sign in communication not applicable due to emergent procedure. Personnel directly involved with the procedure wore the appropriate PPE. Special Equipment: N/A Patient/Surrogate Stated/Verified: Patient name, Date of , Relevant allergies and Intended procedure TIME OUT Intended patient and procedure match the source document(s). Consent documented and matches the intended procedure. Relevant labs, photos, and/or imaging studies have been reviewed. Correct side/site marked and visible. Medications required for procedure verified. No fire risk assessment and interventions applicable. No implant(s) inserted. 12/02/2023 3:41 PM The procedure site was prepped in the usual sterile fashion. Site: bilateral knee joints Medications (Right): 20 mg sodium hyaluronate 10 mg/mL(mw 2.4 -3.6 million) Medications (Left): 20 mg sodium hyaluronate 10 mg/mL(mw 2.4 -3.6 million) Outcome: Tolerated well, no immediate complications Post-injection instructions were reviewed with the patient and the patient voiced understanding of these instructions. SIGN OUT All instruments, equipment, possible retained foreign bodies accounted for. * Giselle Reyes RN - 12/02/2023 3:24 PM EST Euflexxa bilateral knee injections LOT # [id number] EXP 2024-09-08 Giselle Reyes RN * Giselle Reyes RN - 12/02/2023 3:20 PM EST Patient presents with: Right Knee - Established Patient: Bilateral knee injections Euflexxa #3 Left Knee - Established Patient Patient is here for his third euflexxa injection to both knees. AMB ROOMING INTAKE FLOWSHEET DATA Pain Pain Level: 6 Pain Location: (Bilateral knees) Description: Aching Duration Amount of Time: (Ongoing) Frequency: Intermittent Intervention/Comfort measure: Medication, Reposition Giselle Reyes RN documented in this encounterHocking [facility]02-12-[facility] History of Present illness Narrative* Gilda Rutherford PA-C - 11/25/2023 3:45 PM ESTAssociated Order(s): Large Joint Arthro/Inj: bilateral knee joints Post-Procedure Diagnose(s): Primary osteoarthritis of both knees Large Joint Arthro/Inj: bilateral knee joints Informed Consent Consent Obtained: Verbal Lenore Protocol A moment to CARE was completed. SIGN IN Sign in communication not applicable due to emergent procedure. Personnel directly involved with the procedure wore the appropriate PPE. Special Equipment: N/A Patient/Surrogate Stated/Verified: Patient name, Date of , Relevant allergies and Intended procedure TIME OUT Intended patient and procedure match the source document(s). Consent documented and matches the intended procedure. Relevant labs, photos, and/or imaging studies have been reviewed. Correct side/site marked and visible. Medications required for procedure verified. No fire risk assessment and interventions applicable. No implant(s) inserted. 11/25/2023 3:45 PM The procedure site was prepped in the usual sterile fashion. Site: bilateral knee joints Medications (Right): 20 mg sodium hyaluronate 10 mg/mL(mw 2.4 -3.6 million) Medications (Left): 20 mg sodium hyaluronate 10 mg/mL(mw 2.4 -3.6 million) Outcome: Tolerated well, no immediate complications Post-injection instructions were reviewed with the patient and the patient voiced understanding of these instructions. SIGN OUT All instruments, equipment, possible retained foreign bodies accounted for. * Elizabeth Perry Ma - 11/25/2023 3:27 PM EST AMB ROOMING INTAKE FLOWSHEET DATA Pain Pain Level: 6 Pain Location: (bilateral knees) Description: Throbbing Duration Amount of Time: (ongoing) Frequency: Intermittent Intervention/Comfort measure: Medication Patient here today for Euflexxa injection # 2 into bilateral knees. LOT # [id number] EXP 07/22/2024 Elizabeth Perry Ma documented in this encounterHocking [facility]02-07-[facility] History of Present illness Narrative* Noemi Beltran, KOSHER SEALER.DIRECTOR DIGITAL STRATEGY - 11/20/2023 4:12 PM EST CC: Patient presents with: 6 Month Exam HPI Miles Turner is a 58 year old male who presents today for above. HTN-Medication changes:No Taking all medications as prescribed: Yes Side effects: No Home BP's: Yes 110's/70's Denies: headache, chest pain, palpitations, dyspnea, and peripheral edema. Last 3 Encounter BP Readings: Date: BP: 11/20/2023 118/70 05/13/2023 128/84 06/22/2022 132/76 GERD: occasional heartburn with dietary indiscretions such as spicy foods. Denies dysphagia, odynophagia, sore throat, bloating, abdominal pain. Chronic knee pain: secondary to osteoarthritis. Had gel injections last week, mild improvement inpain. Considering knee replacement. Review of Systems Constitutional: Negative for chills, diaphoresis, fatigue, fever and unexpected weight change. Gastrointestinal: Negative for blood in stool, constipation, diarrhea, nausea and vomiting. PAST MEDICAL HISTORY Diagnosis Date ALLERGIC RHINITIS NEC Essential hypertension 11/24/2007 Family history of malignant neoplasm of gastrointestinal tract History of tobacco use 30 pack years Hydronephrosis 01/08/2018 mild left Hypertriglyceridemia 06/21/2015 Internal hemorrhoids without mention of complication Kidney stone 01/08/2018 left Obesity, Class III, BMI 40-49.9 (morbid obesity) (HCC) 06/21/2015 Other and unspecified hyperlipidemia Primary osteoarthritis of both hips 05/26/2021 Primary osteoarthritis of both knees 03/30/2014 Snoring PAST SURGICAL HISTORY Procedure Laterality Date COLONOSCOPY FLX DX W/COLLJ SPEC WHEN PFRMD 07/30/2011 repeat due 2016 (FHx) COLONOSCOPY FLX DX W/COLLJ SPEC WHEN PFRMD 07/06/2016 normal - 5 year follow up for family history COLONOSCOPY SCREENING 06/04/2022 . benign polyp, repeat in 5 years based on family history VASECTOMY UNI/BI SPX W/POSTOP SEMEN EXAMS ALLERGIES Patient has no known allergies. MEDICATIONS etodolac (LODINE) 400 mg tablet Take 1 tablet by mouth twice daily as needed (joint pain). omeprazole (PRILOSEC) 40 mg capsule Take 1 capsule by mouth once daily. gemfibrozil (LOPID) 600 mg tablet Take 1 tablet by mouth twice daily. Valsartan-hydroCHLOROthiazide 320-25 mg per tablet Take 1 tablet by mouth once daily. cholecalciferol, vitamin D3, (VITAMIN D3 ORAL) Take 5,000 Units by mouth once daily. acetaminophen (TYLENOL) 500 mg tablet Take 1 tablet by mouth every 6 hours as needed for Pain. Coral-3 Fatty Acids (FISH OIL) 500 mg cap Take 500 mg by mouth once daily. FAMILY HISTORY Problem Relation Age of Onset Heart Mother Cancer Father colon - ? - age 70 Heart Father No Known Problems Sister No Known Problems Brother Colon Cancer Paternal Uncle Social History Tobacco Use Smoking status: Former Packs/day: 1.00 Years: 30.00 Additional pack years: 0.00 Total pack years: 30.00 Types: Cigarettes Quit date: 05/14/2009 Years since quittin.5 Smokeless tobacco: Never Tobacco comments: states smokes cigar occasionally Vaping Use Vaping Use: Never used Substance Use Topics Alcohol use: Yes Alcohol/week: 10.0 standard drinks of alcohol Types: 10 Cans of beer per week Comment: 6 beers a week Drug use: No BP 118/70 Pulse 64 Temp 37.5 C (99.5 F) (Temporal) Resp 20 Wt 126.6 kg (279 lb) BMI 41.20kg/m Physical Exam Vitals reviewed. Constitutional: Appearance: Normal appearance. Neck: Thyroid: No thyroid mass, thyromegaly or thyroid tenderness. Cardiovascular: Rate and Rhythm: Normal rate and regular rhythm. Pulses: Normal pulses. Heart sounds: Normal heart sounds. No murmur heard. Pulmonary: Effort: Pulmonary effort is normal. Breath sounds: Normal breath sounds. No wheezing, rhonchi or rales. Skin: General: Skin is warm and dry. Neurological: Mental Status: He is alert. Psychiatric: Mood and Affect: Mood normal. Health maintenance reviewed with patient: BP Controlled (<130/80) due on 05/04/2023 Depression Assessment due on 10/14/2023 Lung Cancer Screening due on 05/13/2024 Covid-19 Vaccine( season) due on 11/20/2024 Annual PCP Team Chronic Disease Visit due on 05/13/2024 Diabetes Screening due on 05/13/2026 Prostate Cancer Screening Discussion due on 03/30/2027 Colorectal Cancer Screening due on 06/04/2027 Lipid Screening due on 05/13/2028 DTaP,Tdap,Td Vaccine(3 - Td or Tdap) due on 05/04/2032 Influenza Vaccine Completed Hepatitis C Screening Completed Shingrix Vaccine Completed Hepatitis B Vaccine Discontinued HIV Screening Discontinued DATA REVIEWED: Most recent labs ASSESSMENT/PLAN: 1. Essential hypertension - ICD9: 401.9, ICD10: I10 (primary diagnosis) - Controlled - Continue current medications - Recommend home blood pressure monitoring, to bring results to next visit - Encouraged sodium restriction, DASH or Mediterranean diet - Discussed need for and benefit of weight loss. BMI 41.20 kg/(m^2) - VALSARTAN 320 MG-HYDROCHLOROTHIAZIDE 25 MG TABLET - COMP METABOLIC PANEL - CBC 2. Gastroesophageal reflux disease without esophagitis - ICD9: 530.81, ICD10: K21.9 Stable 3. Hypertriglyceridemia - ICD9: 272.1, ICD10: E78.1 - Controlled - Continue current medications - LIPID PANEL BASIC 4. Vitamin D deficiency - ICD9: 268.9, ICD10: E55.9 Recheck in 6 months - VITAMIN D 25 HYDROXY 5. Primary osteoarthritis of both knees - ICD9: 715.16, ICD10: M17.0 Injections per orthopedics. Follow-up as instructed Prescription instructions reviewed with patient as applicable. Potential red flag symptoms discussed with the patient. Reviewed appropriate action plan to take if red flag symptoms occur. Patient agreeable to treatment plan. Noemi Beltran APRN.DIRECTOR DIGITAL STRATEGY documented in this encounterHocking [facility]07-31-2023 History of Present illness Narrative* Vinh Aguilar MD - 05/13/2023 5:24 PM EDT This note was created using NoteWriter. Subjective Patient presents with: Charlotte Turner is a 57 year old male. He was doing reasonably well. Weight was trending up from an all time low of 258 pounds. He had some activity limitations due to knee pains. Hypertension was controlled. GERD was generally controlled, other than indulgence in spicy foods. We reviewed health maintenance and he preferred no lung cancer screening or hepatitis B vaccination. PAST MEDICAL HISTORY Diagnosis Date ALLERGIC RHINITIS NEC Arthritis Arthritis of knee bilateral Essential hypertension, benign Family history of malignant neoplasm of gastrointestinal tract History of tobacco use 30 pack years Hydronephrosis 01/08/2018 mild left Hypertriglyceridemia 06/21/2015 Internal hemorrhoids without mention of complication Kidney stone 01/08/2018 left OBESITY Other and unspecified hyperlipidemia Primary osteoarthritis of both hips 05/26/2021 Primary osteoarthritis of both knees 03/30/2014 Snoring PAST SURGICAL HISTORY Procedure Laterality Date COLONOSCOPY FLX DX W/COLLJ SPEC WHEN PFRMD 07/30/2011 repeat due 2016 (FHx) COLONOSCOPY FLX DX W/COLLJ SPEC WHEN PFRMD 07/06/2016 normal - 5 year follow up for family history COLONOSCOPY SCREENING 06/04/2022 . benign polyp, repeat in 5 years based on family history VASECTOMY UNI/BI SPX W/POSTOP SEMEN EXAMS FAMILY HISTORY Problem Relation Age of Onset Heart Mother Cancer Father colon - ? - age 70 Heart Father No Known Problems Sister No Known Problems Brother Colon Cancer Paternal Uncle Social History Tobacco Use Smoking status: Former Packs/day: 1.00 Years: 30.00 Total pack years: 30.00 Types: Cigarettes Quit date: 05/14/2009 Years since quittin.0 Smokeless tobacco: Never Tobacco comments: states smokes cigar occasionally Vaping Use Vaping Use: Never used Substance Use Topics Alcohol use: Yes Alcohol/week: 10.0 standard drinks of alcohol Types: 10 Cans of beer per week Drug use: No ALLERGIES No Known Allergies Current Outpatient Medications Medication Sig gemfibrozil (LOPID) 600 mg tablet Take 1 tablet by mouth twice daily. Valsartan-hydroCHLOROthiazide 320-25 mg per tablet Take 1 tablet by mouth once daily. cholecalciferol, vitamin D3, (VITAMIN D3 ORAL) Take 5,000 Units by mouth once daily. acetaminophen (TYLENOL) 500 mg tablet Take 1 tablet by mouth every 6 hours as needed for Pain. Coral-3 Fatty Acids (FISH OIL) 500 mg cap Take 500 mg by mouth once daily. etodolac (LODINE) 400 mg tablet Take 1 tablet by mouth twice daily as needed (joint pain). omeprazole (PRILOSEC) 40 mg capsule Take 1 capsule by mouth once daily. No current facility-administered medications for this visit. Review of Systems Constitutional: Negative for activity change, appetite change, fatigue and unexpected weight change. HENT: Negative for congestion and trouble swallowing. Eyes: Negative for visual disturbance. Respiratory: Negative for cough, shortness of breath and wheezing. Cardiovascular: Negative for chest pain, palpitations and leg swelling. Gastrointestinal: Negative for abdominal pain, blood in stool, diarrhea, nausea and vomiting. Genitourinary: Negative for difficulty urinating. Musculoskeletal: Positive for arthralgias. Skin: Negative. Neurological: Negative for dizziness and headaches. Psychiatric/Behavioral: Negative for dysphoric mood. Objective BP 128/84 (BP Site: Left Arm, BP Position: Sitting, BP Cuff Size: Large Adult) Pulse 72 Resp 20 Ht 175.3 cm (5' 9) Wt 121.6 kg (268 lb) BMI 39.58 kg/m Physical Exam Constitutional: General: He is not in acute distress. Appearance: He is obese. HENT: Head: Normocephalic. Nose: Nose normal. Eyes: Extraocular Movements: Extraocular movements intact. Conjunctiva/sclera: Conjunctivae normal. Cardiovascular: Rate and Rhythm: Normal rate and regular rhythm. Heart sounds: No murmur heard. No gallop. Pulmonary: Effort: Pulmonary effort is normal. Breath sounds: Normal breath sounds. Abdominal: General: Bowel sounds are normal. Palpations: Abdomen is soft. There is no mass. Tenderness: There is no abdominal tenderness. Musculoskeletal: General: No swelling, tenderness or deformity. Normal range of motion. Cervical back: Neck supple. Thoracic back: Scoliosis present. Right lower leg: No edema. Left lower leg: No edema. Lymphadenopathy: Cervical: No cervical adenopathy. Neurological: General: No focal deficit present. Mental Status: He is alert. Gait: Gait normal. Psychiatric: Mood and Affect: Mood normal. Component Latest Ref Rng & Units 05/13/2023 Protein, Total 6.3 - 8.0 g/dL 7.5 Albumin 3.9 - 4.9 g/dL 4.8 Calcium 8.5 - 10.2 mg/dL 9.8 Bilirubin, Total 0.2 - 1.3 mg/dL 0.6 Alkaline Phosphatase 38 - 113 U/L 49 AST 14 - 40 U/L 22 ALT 10 - 54 U/L 24 Glucose 74 - 99 mg/dL 92 BUN 9 - 24 mg/dL 25 (H) Creatinine 0.73 - 1.22 mg/dL 0.66 (L) Sodium 136 - 144 mmol/L 140 Potassium 3.7 - 5.1 mmol/L 4.5 Chloride 97 - 105 mmol/L 106 (H) CO2 22 - 30 mmol/L 21 (L) Anion Gap 9 - 18 mmol/L 13 eGFR >=60 mL/min/1.73m 109 WBC 3.70 - 11.00 k/uL 6.44 RBC 4.20 - 6.00 m/uL 4.85 Hemoglobin 13.0 - 17.0 g/dL 15.8 Hematocrit 39.0 - 51.0 % 46.8 MCV 80.0 - 100.0 fL 96.5 MCH 26.0 - 34.0 pg 32.6 MCHC 30.5 - 36.0 g/dL 33.8 RDW-CV 11.5 - 15.0 % 12.5 Platelet Count 150 - 400 k/uL 189 MPV 9.0 - 12.7 fL 10.6 Absolute nRBC <0.01 k/uL <0.01 Cholesterol, Total <200 mg/dL 188 Triglyceride <150 mg/dL 157 (H) HDL Cholesterol >39 mg/dL 40 Non HDL Cholesterol <130 mg/dL 148 (H) Fasting Time hrs 13 VLDL Cholesterol <30 mg/dL 31 (H) TC:HDL Ratio <5.10 4.70 LDL Cholesterol <100 mg/dL 117 (H) LDL:HDL Ratio <2.54 2.93 (H) Assessment and Plan 1. Routine medical exam - ICD9: V70.0, ICD10: Z00.00 (primary diagnosis) - Counseled on healthy diet and regular exercise - Discussed need for and benefit of weight loss. BMI 39.58 kg/(m^2) - Lung cancer screening recommended - Counseled on limiting alcohol intake to 2 drinks per day - Depression screening tool completed and reviewed with patient. Based on score and interview, patient is not at risk for depression and recommended no further intervention at this time. 2. Gastroesophageal reflux disease without esophagitis - ICD9: 530.81, ICD10: K21.9 Dose increased for better symptom control. - OMEPRAZOLE 40 MG CAPSULE,DELAYED RELEASE 3. Pain in left hip - ICD9: 719.45, ICD10: M25.552 - ETODOLAC 400 MG TABLET 4. Essential hypertension - ICD9: 401.9, ICD10: I10 - Controlled - Continue current medications - Recommend regular aerobic exercise - Discussed need for and benefit of weight loss. BMI 39.58 kg/(m^2) 5. Hypertriglyceridemia - ICD9: 272.1, ICD10: E78.1 - Control undetermined, due for labs - Counseled on healthy diet and regular exercise 6. Obesity, Class III, BMI 40-49.9 (morbid obesity) (HCC) - ICD9: 278.01, ICD10: E66.01 Weight increasing - Behavioral intervention Vinh Aguilar MD documented in this encounterHock[facility]07-10-2023 Miscellaneous Notes* Telephone Encounter - Marnie Pastrana LPN - 04/22/2023 5:58 PM EDT Patient has been identified by name and date of : Yes Patient phones for refill(s): Requested Prescriptions Pending Prescriptions Disp Refills gemfibrozil (LOPID) 600 mg tablet 180 tablet 3 Sig: Take 1 tablet by mouth twice daily. Date of last office visit in primary care: 05/04/2022 Annual: 05/13/2023 Last 2 Encounter Wt Readings: Date: Wt: 03/07/2023 117.9 kg (260 lb) 06/22/2022 119.3 kg (263 lb) Previous labs/tests for medication: Cholesterol: HDL Cholesterol (mg/dL) Date Value 03/30/2022 38 05/26/2021 34 LDL Cholesterol (mg/dL) Date Value 03/30/2022 111 05/26/2021 111 ALT (U/L) Date Value 03/30/2022 14 05/26/2021 21 Non HDL Cholesterol (mg/dL) Date Value 03/30/2022 132 05/26/2021 163 Please advise. Thank you. Marnie Pastrana LPN * Telephone Encounter - Giselle Reynolds - 04/22/2023 4:20 PM EDT Patient has been identified by name and date of : Yes Last office visit in this department: 05/04/2022 RX INSTRUCTIONS: Patient aware RX will be sent to pharmacy. No need to notify patient. Patient phones requesting refills as follows: Requested Prescriptions Pending Prescriptions Disp Refills gemfibrozil (LOPID) 600 mg tablet 180 tablet 3 Sig: Take 1 tablet by mouth twice daily. Please review and advise. Giselle Reynolds documented in this encounterHocking [facility]05-25-2023 History of Present illness Narrative* Satish Rosas MD - 03/07/2023 9:26 AM EDT Satish Rosas MD Department of Orthopaedics Orthopa[facility] [address] [facility] [place] [facility] [address] Dept: [phone] Dept March 07, 2023 CHIEF COMPLAINT: Knee Pain of the Right Knee and Knee Pain of the Left Knee HPI Pt presents to office today for consult for bilateral knee pain which has been ongoing since ~2016.Pt previously had right knee pain, requiring fluid to be drained in 2013. Pt is concerned if that may be occurring again, as right knee has been swelling intermittently and gets really right, but also says pain feels like it's bone on bone. Pt completed physical therapy in 2013 which also did help. Pt would like to address concerns with appropriate stretches. Pt also states concerns with lefthip pain. Patient presents with: Right Knee - Knee Pain Left Knee - Knee Pain AMB ROOMING INTAKE FLOWSHEET DATA Pain Pain Level: 6 Pain Location: Knee-Left (bilateral) Description: Other: See comment (feels bone on bone) Duration Amount of Time: 7 Duration Units: Years Frequency: Continuous Intervention/Comfort measure: Reposition, Relaxation ASSESSMENT: M17.0 Primary osteoarthritis of both knees (primary encounter diagnosis) K21.9 Gastroesophageal reflux disease, unspecified whether esophagitis present M16.12 Primary osteoarthritis of left hip PLAN: Quite sever, bilateral knee OA and to a lesser degree, HipOA. He would like to go with NSAIDsat this time. My consider injection. FOLLOW UP INSTRUCTIONS: As needed. Mr. Miles Turner was advised as to contrast therapies and/or to take analgesics/anti-inflammatories as needed and all contraindications were reviewed. OBJECTIVE: Mr. Miles Turner is a pleasant 57 year old in no apparent distress. Gen:Ht 5' 9 (1.75m) Wt 260 lb (117.9kg) BMI 38.38 kg/(m^2). nl development, obese, no deformities ENT: Normocephalic, normal hearing, moist mucosa CV: Pulses:DP/PT= 2+ and symmetric, capillary refill < 2 secs, no peripheral edema/varicosities Skin: no rash, bruising or lesions. Good turgor. Psych: cooperative and appropriate, alert and oriented x 3, good mood and affect. Musculoskeletal: Patient walks without antalgia, normal station, bilateral varus gait. Hip motion without pain. EachKnee with mild effusion. Patella tracks normally. There is bilateral patellar crepitance. No pain along the medial or lateral facets. Range of motion 5-120, bilaterally. Positive medial, without lateral joint line pain on palpation. Ligamentous exam stable on varus and valgus stress testing at 0 and 30 degrees. There is medial opening at each knee with valgus stress. Extremity is warm and well perfused. Sensation is grossly intact to light touch, subjectively. IMAGING: IMPRESSION: Tricompartmental degenerative joint disease with bilateral marked narrowing medial knee joint compartment with genu varus. Findings are progressed from prior studies particularly on the RIGHT. Car Checker: [facility] Transcribe Date/Time: Mar 08 2023 12:01P Dictated by : ABDIFATAH ATWOOD MD This examination was interpreted and the report reviewed and electronically signed by: ABDIFATAH ATWOOD MD on Mar 08 2023 12:04PM EST Results-Findings * * *Final Report* * * DATE OF EXAM: Mar 07 2023 8:28AM [id number] [id number] - XR KNEE 4V AP/PA/LAT/MERCH BRIGITTE / PROCEDURE REASON: multiple diagnoses * * * * Physician Interpretation * * * * Bilateral knees HISTORY: 57 years old Clinical information: Pain in both knees, unspecified chronicity Pain in both knees, unspecified chronicity PT STATES BILAT KNEE PAIN. TECHNIQUE: Images: XR KNEE 4V AP/PA/LAT/MERCH BRIGITTE Comparison: Left knee 03/30/2014 and RIGHT knee 02/04/2013. RESULT: Findings: Left knee: Genu varus. Marked narrowing medial knee joint compartment tricompartmental hypertrophic spurring and prominent patellofemoral spurring. 1 cm lateral translocation of the tibia. No effusion. Right knee: Genu varus. Marked narrowing medial knee joint compartment tricompartmental hypertrophic spurring and prominent patellofemoral spurring. 1 cm lateral translocation of the tibia. Possible small effusion. Supporting Subjective Information Below: Past Medical History: PAST MEDICAL HISTORY Diagnosis Date ALLERGIC RHINITIS NEC Arthritis Arthritis of knee bilateral Essential hypertension, benign Family history of malignant neoplasm of gastrointestinal tract History of tobacco use 30 pack years Hydronephrosis 01/08/2018 mild left Hypertriglyceridemia 06/21/2015 Internal hemorrhoids without mention of complication Kidney stone 01/08/2018 left OBESITY Other and unspecified hyperlipidemia Primary osteoarthritis of both hips 05/26/2021 Primary osteoarthritis of both knees 03/30/2014 Snoring Past Surgical History: PAST SURGICAL HISTORY Procedure Laterality Date COLONOSCOPY FLX DX W/COLLJ SPEC WHEN PFRMD 07/30/2011 repeat due 2015 (FHx) COLONOSCOPY FLX DX W/COLLJ SPEC WHEN PFRMD 07/06/2016 normal - 5 year follow up for family history COLONOSCOPY SCREENING 06/04/2022 . benign polyp, repeat in 5 years based on family history VASECTOMY UNI/BI SPX W/POSTOP SEMEN EXAMS Family History: FAMILY HISTORY Problem Relation Age of Onset Heart Mother Cancer Father colon - ? - age 70 Heart Father Colon Cancer Paternal Uncle Social History: Social History Tobacco Use Smoking status: Former Packs/day: 1.00 Years: 30.00 Pack years: 30.00 Types: Cigarettes Quit date: 05/14/2009 Years since quittin.8 Smokeless tobacco: Never Tobacco comments: states smokes cigar occasionally Vaping Use Vaping Use: Never used Substance Use Topics Alcohol use: Yes Comment: occasional Drug use: No Medications: Current Outpatient Medications Medication Sig Valsartan-hydroCHLOROthiazide 320-25 mg per tablet Take 1 tablet by mouth once daily. gemfibrozil (LOPID) 600 mg tablet Take 1 tablet by mouth twice daily. cholecalciferol, vitamin D3, (VITAMIN D3 ORAL) Take 5,000 Units by mouth once daily. acetaminophen (TYLENOL) 500 mg tablet Take 1 tablet by mouth every 6 hours as needed for Pain. Coral-3 Fatty Acids (FISH OIL) 500 mg cap Take 500 mg by mouth once daily. etodolac (LODINE) 400 mg tablet Take 1 tablet by mouth twice daily as needed (joint pain). pantoprazole DR (PROTONIX) 40 mg tablet Take 1 tablet by mouth once daily. multivit with minerals/lutein (MULTIVITAMIN 50 PLUS ORAL) Take 1 tablet by mouth once daily. (Patient not taking: Reported on 03/07/2023) No current facility-administered medications for this visit. Allergies: Patient has no known allergies. ROS: General (negative for fatigue, malaise, weight loss/gain) HEENT (negative for headache, earache, recent vision changes, sinus pain, sore throat) Respiratory (no recent shortness of breath, hemoptysis) CV (negative for chest tightness, palpitations) Musculoskeletal (see HPI) Psych (no depression, anxiety) Satish Rosas MD documented in this encounterHock[facility]05-25-[facility]23 History of Present illness Narrative* Shanti Love RT(R) - 03/07/2023 8:20 AM EDT Radiology Service Progress Note PATIENT NAME: Miles Turner DATE OF SERVICE: March 07, 2023 TIME: 8:29 AM PATIENT IDENTITY VERIFICATION COMPLETED USING TWO (2) IDENTIFIERS: Name and Date of confirmedby patient verbally. FALL SCREENING: Has the patient had 2 falls in the last year or 1 fall with injury or currently using an Ambulatory Assistive Device (Walker, Cane, Wheelchair, Crutches, etc.)? No PATIENT GENDER DATA: Male PATIENT RELEVANT IMPLANT DATA REVIEWED: Not Applicable RADIOLOGY DEPARTMENT: General X-ray: Exam(s) Completed: Lower Extremity X- Ray(s): Knee, AP / Lat / Tunne / Merchant Bilateral and Wt. Bearing PERIPHERAL IV DATA: Not applicable SIGNED BY: RT Hugo(R) March 07, 2023 8:29 AM documented in this encounterHocking [facility]04-03-2023 Miscellaneous Notes* Telephone Encounter - Marnie Michael Pastrana LPN - 01/14/2023 7:03 PM EDT Patient has been identified by name and date of : Yes Patient phones for refill(s): Requested Prescriptions Pending Prescriptions Disp Refills Valsartan-hydroCHLOROthiazide 320-25 mg per tablet 90 tablet 3 Sig: Take 1 tablet by mouth once daily. Date of last office visit in primary care: 05/04/2022 Last 2 Encounter Wt Readings: Date: Wt: 06/22/2022 119.3 kg (263 lb) 06/04/2022 117 kg (257 lb 15 oz) Previous labs/tests for medication: Blood Pressure: BUN (mg/dL) Date Value 03/30/2022 23 07/01/2021 23 Sodium (mmol/L) Date Value 03/30/2022 138 07/01/2021 140 Last 1 Encounter BP Readings: Date: BP: 06/22/2022 132/76 Please advise. Thank you. Marnie Pastrana LPN * Telephone Encounter - Evelyn Patricia Pss - 01/14/2023 3:54 PM EDT Patient has been identified by name and date of : Yes Requested Prescriptions Pending Prescriptions Disp Refills Valsartan-hydroCHLOROthiazide 320-25 mg per tablet 90 tablet 3 Sig: Take 1 tablet by mouth once daily. RX INSTRUCTIONS: Patient aware RX will be sent to pharmacy. No need to notify patient. Evelyn Patricia Pss documented in this encounterHocking [facility]02-06-2023 Miscellaneous Notes* Telephone Encounter - Shahbaz Rm Ma - 11/19/2022 12:05 PM EST RANDAL: 04/14/2022 etodloac Last refill: 07/18/2022 QTY: 60 Refills: 3 omeprazole Last refill: 11/14/2021 QTY: 90 Refills: 3 * Telephone Encounter - Rosy Moreno Pss - 11/19/2022 8:24 AM EST Pharmacy verified in Epic Patient has been identified by name and date of : Yes Patient aware RX will be sent to pharmacy. No need to notify patient. Patient phones for refill(s): Requested Prescriptions Pending Prescriptions Disp Refills etodolac (LODINE) 400 mg tablet 60 tablet 3 Sig: Take 1 tablet by mouth twice daily as needed (joint pain). omeprazole (PRILOSEC) 20 mg capsule 90 capsule 3 Sig: TAKE 1 CAPSULE BY MOUTH EVERY DAY BEFORE BREAKFAST Date of last office visit : 05/04/2022 Date of next office visit : 05/13/2023 Last 2 Encounter Wt Readings: Date: Wt: 06/22/2022 119.3 kg (263 lb) 06/04/2022 117 kg (257 lb 15 oz) Please advise. Rosy Moreno Pss documented in this encounterHocking [facility]01-25-2023 Miscellaneous Notes* Telephone Encounter - Hailey Fernando RN - 11/07/2022 1:14 PM EST Called and left a detailed voicemail notifying patient that provider placed labs. Hospital phone number was left in case patient had any questions. Hailey Fernando RN * Telephone Encounter - Kassie Montes RN - 11/06/2022 11:43 AM EST Pt has annual exam scheduled for 05/13/23 and asking if PCP would like any labs completed prior to this appt? Please advise patient. Thank you. documented in this encounterHocking [facility]10-04-2022 Miscellaneous Notes* Telephone Encounter - Kasey Tee LPN - 07/17/2022 4:21 PM EDT Last office visit: 05/04/22 Next appointment scheduled: 11/07/22 * Telephone Encounter - Kriss Mccord Pss - 07/17/2022 4:20 PM EDT Patient has been identified by name and date of : Yes Requested Prescriptions Pending Prescriptions Disp Refills etodolac (LODINE) 400 mg tablet 60 tablet 3 Sig: Take 1 tablet by mouth twice daily as needed (joint pain). RX INSTRUCTIONS: Patient aware RX will be sent to pharmacy. No need to notify patient. Kriss Mccord Pss documented in this encounterHocking [facility]09-09-2022 Instructions* Patient Instructions* Hailey Hodges PA-C - 06/22/2022 9:37 AM EDT The following instructions are important for you related to your office visit today with the [facility] General Surgeons. INSTRUCTIONS FOLLOWING A POLYP FOUND AT COLONOSCOPY You were found to have a benign colon polyp. I recommend you undergo repeat endoscopy in 5 years based on your family history. If you note bleeding, change in bowel habits, or other suspicious colon related symptoms before that time, those symptoms should be evaluated as necessary. If you have any difficulties or concerns, you should contact our office immediately. If you note any additional difficulties, questions, or concerns, you should contact our office immediately @ [phone] and ask to be transferred to the General Surgery department. documented in this encounterHocking Valley [facility]09-09-2022 History of Present illness Narrative* Hailey Hodges PA-C - 06/22/2022 9:26 AM EDT FOLLOW UP VISIT - ENDOSCOPY NAME: Miles Turner [facility] NO.: [id number] DATE OF SERVICE: 06/22/2022 : 1965 REFERRING PHYSICIAN: Vinh Aguilar MD Miles is a patient I am following with Dr. Oliver for screening colonoscopy and family history of colon cancer. Dr. Oliver performed lower endoscopy on 06/04/22. The patient was found to have non-bleeding internal hemorrhoids, and a small sigmoid colon polyp which was removed. Pathology demonstrated: FINAL DIAGNOSIS A. Colon, sigmoid, polyp, biopsy: - Colonic mucosa with no diagnostic abnormalities. The patient notes no complaints since the procedure. VITALS: Blood pressure 132/76, pulse 78, temperature 36.1 C (96.9 F), height 175.3 cm (5' 9), weight 119.3 kg (263 lb), SpO2 95 %. General: patient is alert, cooperative, pleasant and in no acute distress On examination, the abdomen is benign. Assessment IMPRESSION: s/p colonoscopy with polypectomy-benign pathology. Family history of colon cancer PLAN: The operative findings and pathology report were reviewed with the patient, and the patient has hadthe opportunity to ask questions and have questions answered. If the patient notes any problems or changes in bowel function, the patient should contact me immediately. Otherwise I recommend follow up endoscopy in 5 years. HM updated and recall letter generated. Patient verbalized understanding of all above and agreed with the plan Diagnoses: (K63.5) Polyp of sigmoid colon, unspecified type (primary encounter diagnosis) (Z80.0) Family history of colon cancer I spent a total of 22 minutes on the date of the service which included preparing to see the patient, [id number] patient care, completing clinical documentation, obtaining and/or reviewing separately obtained history, counseling and educating the patient/family/caregiver, independently interpretin g results (not separately reported), and communicating results to the patient/family/caregiver. Hailey Hodges PA-C documented in this encounterHocking [facility]08-11-2022 Miscellaneous Notes* Telephone Encounter - Gisela Durham - 05/24/2022 8:25 AM EDT Thank you for your request. This message has been forwarded to the provider for review. Message My Doctor's Office is a convenient way to send non-urgent messages to your provider's office. Our goal is to respond within 3 business days for your providers response. If your request is fora Prescription renewal, please allow 2 business days for your providers response. If you do not receive a response within that timeframe, please call your doctor's office. * Call 911 immediately for an emergency. This feature is ONLY for non-urgent messages. * You will receive a response from your provider or a member of your health care team within 3 business days. * Messages may only be sent concerning the patient associated with this [address] account. * All messages submitted will become part of the permanent medical record. * Telephone Encounter - Rosy Shepard - 05/23/2022 5:11 PM EDT Pt called regarding colonoscopy prep. He stated the pharmacy did not have the prescription anymore.He would like the prep that was suggested to be sent to [facility]. documented in this encounterHocking Valley [facility]07-22-2022 History of Present illness Narrative* Noemi Older, KOSHER SEALER.DIRECTOR DIGITAL STRATEGY - 05/04/2022 9:08 AM EDT CC: Patient presents with: Physical HPI Miles Turner is a 56 year old male who presents today for above. 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 REVIEW OF SYSTEMS General: no fevers, no chills, no night sweats, no change in appetite and no change in energy HEENT: no frequent or significant headaches, no changes in hearing, no visual changes Respiratory: no cough, no wheezing, no shortness of breath Cardiovascular: no chest pain, no chest pressure, no palpitations, no swelling and no decrease in exercise tolerance GI: Negative for abdominal discomfort, blood in stools or black stools, change in bowel habit, heart burn, nausea, vomiting : No difficulty urinating, nocturia > 1 time per night or hematuria Musculoskeletal: Negative for joint pain or swelling, back pain or muscle pain Skin: Negative for lesions, rash, and itching Psych: Negative for sleep disturbance, mood disorder and recent psychosocial stressors PAST MEDICAL HISTORY Diagnosis Date ALLERGIC RHINITIS NEC Arthritis of knee bilateral Essential hypertension, benign Family history of malignant neoplasm of gastrointestinal tract History of tobacco use 30 pack years Hydronephrosis 01/08/2018 mild left Hypertriglyceridemia 06/21/2015 Internal hemorrhoids without mention of complication Kidney stone 01/08/2018 left OBESITY Other and unspecified hyperlipidemia Primary osteoarthritis of both hips 05/26/2021 Primary osteoarthritis of both knees 03/30/2014 Snoring PAST SURGICAL HISTORY Procedure Laterality Date COLONOSCOPY FLX DX W/COLLJ SPEC WHEN PFRMD 07/30/11 repeat due 2015 (FHx) COLONOSCOPY FLX DX W/COLLJ SPEC WHEN PFRMD 07/06/16 normal - 5 year follow up for family history VASECTOMY UNI/BI SPX W/POSTOP SEMEN EXAMS ALLERGIES Patient has no known allergies. MEDICATIONS gemfibrozil (LOPID) 600 mg tablet Take 1 tablet by mouth twice daily. etodolac (LODINE) 400 mg tablet Take 1 tablet by mouth twice daily as needed (joint pain). multivit with minerals/lutein (MULTIVITAMIN 50 PLUS ORAL) Take 1 tablet by mouth once daily. cholecalciferol, vitamin D3, (VITAMIN D3 ORAL) Take 5,000 Units by mouth once daily. omeprazole (PRILOSEC) 20 mg capsule TAKE 1 CAPSULE BY MOUTH EVERY DAY BEFORE BREAKFAST Valsartan-hydroCHLOROthiazide 320-25 mg per tablet Take 1 tablet by mouth once daily. diclofenac sodium (VOLTAREN ARTHRITIS PAIN TOPICAL) Apply to affected area as needed. acetaminophen (TYLENOL EXTRA STRENGTH) 500 mg tablet Take 1 tablet by mouth every 6 hours as neededfor Pain. Coral-3 Fatty Acids (FISH OIL) 500 mg cap Take 500 mg by mouth once daily. FAMILY HISTORY Problem Relation Age of Onset Heart Mother Cancer Father colon - ? - age 70 Heart Father Colon Cancer Paternal Uncle Social History Tobacco Use Smoking status: Former Smoker Packs/day: 1.00 Years: 30.00 Pack years: 30.00 Quit date: 05/14/2009 Years since quittin.9 Smokeless tobacco: Never Used Tobacco comment: states smokes cigar occasionally Vaping Use Vaping Use: Never used Substance Use Topics Alcohol use: Yes Comment: occasional Drug use: No PHYSICAL EXAM BP 110/68 Pulse 60 Resp 16 Ht 175.3 cm (5' 9) Wt 117 kg (258 lb) BMI 38.10 kg/m General Appearance: well appearing, in no acute distress, alert Pysch: mood and affect broad and appropriate Skin: Skin color, texture, turgor normal for age; Eyes: conjunctiva pink and moist, no icterus, sclera white, non-injected Neck: Thyroid normal size and symmetric without palpable nodules, Neck supple, No adenopathy Lymph nodes: No supraclavicular lymphadenopathy Lungs: Lungs clear to auscultation. No wheezing, rhonchi, rales. Heart: RRR without murmur, gallop, or rubs. No ectopy Ext: no edema in LE bilaterally, good distal pulses Health maintenance reviewed with patient: BP CONTROLLED (<130/80) Never done LUNG CANCER SCREENING Never done DTAP,TDAP,TD(2 - Td or Tdap) due on 05/04/2021 COLORECTAL CANCER SCREENING due on 07/06/2021 COVID-19 VACCINE(3 - Booster for Moderna series) due on 05/04/2023 INFLUENZA(1) due on 06/14/2022 ANNUAL PCP TEAM CHRONIC DISEASE VISIT due on 02/23/2023 DEPRESSION SCREENING due on 05/04/2023 DIABETES SCREEN due on 03/30/2025 LIPID SCREEN due on 03/30/2027 PROSTATE CANCER SCREENING DISCUSSION due on 03/30/2027 HEPATITIS C SCREENING Completed SHINGRIX VACCINE Completed HIV SCREENING Discontinued DATA REVIEWED: Most recent labs ASSESSMENT/PLAN: 1. Wellness examination - ICD9: V70.0, ICD10: Z00.00 (primary diagnosis) - Counseled on healthy diet and regular exercise - Discussed need for and benefit of weight loss. BMI 38.10 kg/(m^2) - Lung cancer screening clinic assessment recommended, patient declined at this time - Depression screening tool completed and reviewed with patient. Based on score and interview, patient is not at risk for depression and recommended no further intervention at this time. - Patient was counseled [id number] by myself (the billing provider) for the following immunizations and vaccine components, including side effects: Td. Patient consents for immunization and understands risks and benefits. A VIS sheet on each immunization was given to the patient. - Follow up for annual exam in one year 2. Need for vaccination - ICD9: V05.9, ICD10: Z23 - TETANUS/DIPTHERIA BOOSTER (OVER 7), ADSORBED IM Prescription instructions reviewed with patient as applicable. Potential red flag symptoms discussed with the patient. Reviewed appropriate action plan to take if red flag symptoms occur. Patient agreeable to treatment plan. Noemi Fung APRN.CNP documented in this encounterHocking [facility]06-24-2022 Miscellaneous Notes* Telephone Encounter - Kassie Montes RN - 04/06/2022 2:55 PM EDT Patient returned call and given provider's message below and patient verbalized understanding. Bella Montes RN * Telephone Encounter - Beatris Riley LPN - 04/06/2022 2:39 PM EDT Left message for patient to return call to office. * Telephone Encounter - Noemi Fung APRN.CNP - 04/06/2022 1:52 PM EDT His labs were all within acceptable limits including cholesterol and PSA /Noemi Fung APRN.CNP * Telephone Encounter - Hailey Fernando RN - 04/06/2022 9:05 AM EDT Pt called in asking for provider to go over recent lab results. Please call and advise. documented in this encounterHocking Valley [facility] Hospital06-22-2022 Miscellaneous Notes* Telephone Encounter - Marnie Pastrana LPN - 04/04/2022 9:46 AM EDT Patient has been identified by name and date of : Yes Patient phones for refill(s): Pending Prescriptions Disp Refills GEMFIBROZIL 600 MG TABLET Sig: Take 1 tablet by mouth twice daily. BRYANT: No Date of last office visit in primary care: 02/23/2022 No future appt scheduled. Last 2 Encounter Wt Readings: Date: Wt: 03/30/2022 117.2 kg (258 lb 6.4 oz) 02/27/2022 122.5 kg (270 lb) Previous labs/tests for medication: Cholesterol: HDL Cholesterol (mg/dL) Date Value 03/30/2022 38 05/26/2021 34 LDL Cholesterol (mg/dL) Date Value 03/30/2022 111 05/26/2021 111 ALT (U/L) Date Value 03/30/2022 14 05/26/2021 21 Non HDL Cholesterol (mg/dL) Date Value 03/30/2022 132 05/26/2021 163 Please advise. Thank you. Marnie Pastrana LPN * Telephone Encounter - MOHIT Azul - 04/04/2022 9:31 AM EDT Patient has been identified by name and date of : Yes Last office visit in this department: 02/23/2022 RX INSTRUCTIONS: Patient aware RX will be sent to pharmacy. No need to notify patient. Patient phones requesting refills as follows: Pending Prescriptions Disp Refills GEMFIBROZIL 600 MG TABLET Sig: Take 1 tablet by mouth twice daily. BRYANT: No Please review and advise. MOHIT Azul documented in this encounterHocking Valley [facility] Hospital06-17-2022 Miscellaneous Notes* Telephone Encounter - Elzbieta Ramirez - 03/30/2022 8:56 AM EDT 06/04/2022 COLON ASC documented in this encounterHocking Valley [facility] Hospital06-04-2022 Miscellaneous Notes* Telephone Encounter - Lorin Sweet - 03/17/2022 8:11 AM EDT Patient has been identified by name and date of : Yes Last office visit in this department: 10/14/2017 RX INSTRUCTIONS: Patient aware RX will be sent to pharmacy. No need to notify patient. Patient phones requesting refills as follows: Pending Prescriptions Disp Refills ETODOLAC 400 MG TABLET 60 tablet 1 Sig: Take 1 tablet by mouth twice daily as needed (joint pain). BRYANT: No Last seen 11/29/2021 Follow up for 04/04/2022 Please review and advise. Lorin Sweet documented in this encounterHocking Valley Community Hospital05-17-2022 History of Present illness Narrative* Vinicius Oliver MD - 02/27/2022 2:47 PM EDT HISTORY AND PHYSICAL Miles Turner 1965 REFERRING PHYSICIAN: Vinicius Gould APRN.DIRECTOR DIGITAL STRATEGY,* CHIEF COMPLAINT: Consult (pilonidal cyst) HPI: The patient is a 56 year old male with a complaint of perianal irritation. Patient states thathe was wiping noticed a lump went to work and the area spontaneously let loose. He noticed some pusand blood. He has been washing it diligently he has had no discharge from it since then. . The patient is being seen by me today at the request of Dr. Gould for my opinion and advice regarding Perianal abscess (primary encounter diagnosis). PAST MEDICAL HISTORY Diagnosis Date ALLERGIC RHINITIS NEC Arthritis of knee bilateral Essential hypertension, benign Family history of malignant neoplasm of gastrointestinal tract History of tobacco use 30 pack years Hydronephrosis 01/08/2018 mild left Hypertriglyceridemia 06/21/2015 Internal hemorrhoids without mention of complication Kidney stone 01/08/2018 left OBESITY Other and unspecified hyperlipidemia Primary osteoarthritis of both hips 05/26/2021 Primary osteoarthritis of both knees 03/30/2014 Snoring PAST SURGICAL HISTORY Procedure Laterality Date COLONOSCOPY FLX DX W/COLLJ SPEC WHEN PFRMD 07/30/11 repeat due 2015 (FHx) COLONOSCOPY FLX DX W/COLLJ SPEC WHEN PFRMD 07/06/16 normal - 5 year follow up for family history VASECTOMY UNI/BI SPX W/POSTOP SEMEN EXAMS Current Outpatient Medications Medication Sig sulfamethoxazole-trimethoprim (BACTRIM DS) 800-160 mg per tablet Take 1 tablet by mouth twice dailyfor 7 days. etodolac (LODINE) 400 mg tablet Take 1 tablet by mouth twice daily as needed (joint pain). gemfibrozil (LOPID) 600 mg tablet Take 1 tablet by mouth twice daily. multivit with minerals/lutein (MULTIVITAMIN 50 PLUS ORAL) Take 1 tablet by mouth once daily. cholecalciferol, vitamin D3, (VITAMIN D3 ORAL) Take 5,000 Units by mouth once daily. omeprazole (PRILOSEC) 20 mg capsule TAKE 1 CAPSULE BY MOUTH EVERY DAY BEFORE BREAKFAST Valsartan-hydroCHLOROthiazide 320-25 mg per tablet Take 1 tablet by mouth once daily. diclofenac sodium (VOLTAREN ARTHRITIS PAIN TOPICAL) Apply to affected area as needed. acetaminophen (TYLENOL EXTRA STRENGTH) 500 mg tablet Take 1 tablet by mouth every 6 hours as neededfor Pain. Coral-3 Fatty Acids (FISH OIL) 500 mg Cap Take 1 capsule by mouth once daily. No current facility-administered medications for this visit. ALLERGIES: Patient has no known allergies. PERSONAL HISTORY: Social History Tobacco Use Smoking status: Former Smoker Packs/day: 1.00 Years: 30.00 Pack years: 30.00 Quit date: 05/14/2009 Years since quittin.8 Smokeless tobacco: Never Used Tobacco comment: states smokes cigar occasionally Vaping Use Vaping Use: Never used Substance Use Topics Alcohol use: Yes Comment: occasional Drug use: No FAMILY HISTORY: FAMILY HISTORY Problem Relation Age of Onset Heart Mother Cancer Father colon - ? - age 70 Heart Father Colon Cancer Paternal Uncle REVIEW OF SYMPTOMS: The review of systems data was entered by the nurse and reviewed by il Nursing Notes: Izabela Whitley LPN 02/27/2022 2:35 PM Signed REVIEW OF SYSTEMS: General: The patient denies fatigue, notes weight loss, denies weight gain, denies feeling hot, anddenies feelings of cold. Eyes: The patient denies glaucoma, denies eye injury/surgery, wears glasses or contacts. Ear/Nose/Throat: The patient denies allergies, denies hayfever, denies ear infections, and denies bloody noses. Cardiovascular: The patient denies chest pain, denies heart disease, denies high blood pressure,denies cardiac stent, denies prior heart attack, denies irregular heart beat, denies high cholesterol, denies poor circulation, denies heart failure, other cardiac issues, denies claudication, denies cold feet, denies peripheral arterial stent. Respiratory: The patient denies tuberculosis, denies pneumonia, denies frequent cough, denies pulmonary embolism, denies shortness of breath, and denies coughing up blood. Gastrointestinal: The patient denies difficulty swallowing, denies acid reflux, denies ulcers, denies vomiting, denies jaundice/hepatitis, denies gallbladder problems, denies black or tarry stools, denies hemorrhoids, denies bleeding from rectum, denies diverticulitis, denies constipation, denies diarrhea, denies loss of stool control, and denies hernias. Kidney/Bladder: The patient denies kidney stones, denies urine infections, and denies bloody urine. Skin: The patient denies a history of skin cancer, denies bleeding/changing moles, and denies a history of skin rash. Neurologic: The patient denies a history of epilepsy/convulsions, denies headaches, denies head/spinal injuries, and denies stroke/TIA. Psychiatric: The patient denies psychiatric medications, denies depression, and denies voices, denies substance abuse. Endocrine: The patient denies thyroid disorders, denies diabetes, and denies hormonal problems. Hematologic: The patient denies a history of bruising, denies bleeding, and denies anemia, denies blood clots. Infections: The patient denies a history of measles and mumps, denies rheumatic fever, and denies sexually transmitted diseases. Musculoskeletal: The patient denies back pain/injury, notes back problems, denies sciatica, denies knee/foot trouble, notes arthritis, or denies gout. When was patient's last Mammogram screening? N/A Last Colonoscopy: 2015 Izabela Whitley LPN PHYSICAL EXAMINATION: General: The patient is 56 year old male, well nourished, well hydrated in no acute distress. The patient is oriented to time, place, and person. VITALS: Blood pressure 132/78, pulse 71, temperature 37.2 C (98.9 F), height 175.3 cm (5' 9), weight 122.5 kg (270 lb), SpO2 97 %. Rectal exam: Right perianal area around the 7 o'clock position patient has an opening consistent with a previous perianal abscess. Within it it looks quite clean no signs of any pus remaining. Surrounding tissue shows no signs of cellulitis or induration. Assessment IMPRESSION: Perianal abscess (primary encounter diagnosis) PLAN: 1 the patient to do warm soaks and Epson salts. Continue to do his washing because the area looks perfect. I will see him back when he needs his next colonoscopy and this should happen this year sometime. Diagnoses: (K61.0) Perianal abscess (primary encounter diagnosis) My findings have been communicated to Dr. Vinh Aguilar MD via shared medical record. This note will be forwarded to Dr. Vinh Aguilar MD. My findings have been communicated to Vinh Aguilar MD via shared medical record. This note will be forwarded to Vinh Aguilar MD. Return to Clinic: The patient is instructed to follow-up with me as needed. Vinicius Oliver III, MD documented in this encounterHock[facility] Nurse Note* Izabela Whitley, GOOD - 02/27/2022 2:33 PM EDT REVIEW OF SYSTEMS: General: The patient denies fatigue, notes weight loss, denies weight gain, denies feeling hot, anddenies feelings of cold. Eyes: The patient denies glaucoma, denies eye injury/surgery, wears glasses or contacts. Ear/Nose/Throat: The patient denies allergies, denies hayfever, denies ear infections, and denies bloody noses. Cardiovascular: The patient denies chest pain, denies heart disease, denies high blood pressure,denies cardiac stent, denies prior heart attack, denies irregular heart beat, denies high cholesterol, denies poor circulation, denies heart failure, other cardiac issues, denies claudication, denies cold feet, denies peripheral arterial stent. Respiratory: The patient denies tuberculosis, denies pneumonia, denies frequent cough, denies pulmonary embolism, denies shortness of breath, and denies coughing up blood. Gastrointestinal: The patient denies difficulty swallowing, denies acid reflux, denies ulcers, denies vomiting, denies jaundice/hepatitis, denies gallbladder problems, denies black or tarry stools, denies hemorrhoids, denies bleeding from rectum, denies diverticulitis, denies constipation, denies diarrhea, denies loss of stool control, and denies hernias. Kidney/Bladder: The patient denies kidney stones, denies urine infections, and denies bloody urine. Skin: The patient denies a history of skin cancer, denies bleeding/changing moles, and denies a history of skin rash. Neurologic: The patient denies a history of epilepsy/convulsions, denies headaches, denies head/spinal injuries, and denies stroke/TIA. Psychiatric: The patient denies psychiatric medications, denies depression, and denies voices, denies substance abuse. Endocrine: The patient denies thyroid disorders, denies diabetes, and denies hormonal problems. Hematologic: The patient denies a history of bruising, denies bleeding, and denies anemia, denies blood clots. Infections: The patient denies a history of measles and mumps, denies rheumatic fever, and denies sexually transmitted diseases. Musculoskeletal: The patient denies back pain/injury, notes back problems, denies sciatica, denies knee/foot trouble, notes arthritis, or denies gout. When was patient's last Mammogram screening? N/A Last Colonoscopy: 2015 Izabela Whitley LPN documented in this encounterH[facility]05-13-[facility]22 Instructions* Patient Instructions* Vinicius Gould APRN.ALEJANDRO CALIX - 02/23/2022 3:27 PM EDT Follow up if symptoms worsen Consult to general surgery Antibiotics x7 days. Sent to [facility] [place] [facility] Return to the clinic or seek care at [facility] for any worsening signs or symptoms: such as fevers, chills, worsening pain, nausea, or diarrhea. For severe symptoms seek care at the closestER. Plan of care, medicaiton side effects and management reviewed with patient. Healthy Habits: Recommend regular physical activity, nutrition and healthy eating habits. Consume a variety of foods every day focusing on fruits, vegetables and lean meats). Eat foods low in fat, saturated fat and cholesterol. Eat a limited amount of salt and sodium. Drink adequate amounts of water and limit sugary drinks. Exercise portion control in meal selection. Establish a mindset of a wellness approach to health. Thank you for allowing me to provide your care today. I look forward to seeing you again and maintaining your health. Vinicius Gould APRN.ALEJANDRO CALIX documented in this encounterHocking Valley [facility]05-13-2022 History of Present illness Narrative* Vinicius Gould APRN.DIRECTOR DIGITAL [employer]ATEGY, DNP - 02/23/2022 3:00 PM EDT Chief Complaint Patient presents with: Rectal Bleeding HPI Miles Turner is a 56 year old male who presents here today for a rectal itching. This is an established patient of Dr. Vinh Aguilar MD. Denies any recent ER visits or hospitalizations. Rectal itching and irritation: States a several day history of rectal itching and irritation. Denies history of hemorrhoids. States at times sees himself making sure he is cleaned in his anal rectal region. Sometimes wipes too hard. Denies any blood on the stool. Denies bright red bleeding from rectum. Denies history of hemorrhoids. Denies constipation or diarrhea. No nausea vomiting. Bowel movements are daily, soft and brown. Denies rectal pain. Denies pain with bowel movement. Denies abdominal pain. No change in diet. Has a history of an anal fissure. Last colonoscopies were in 2010 and 2015. He is due for colonoscopy, has family history of colon cancer. Past medical history, appointments, medications, allergies reviewed 02/23/2022 Previous Medical History PAST MEDICAL HISTORY Diagnosis Date ALLERGIC RHINITIS NEC Arthritis of knee bilateral Essential hypertension, benign Family history of malignant neoplasm of gastrointestinal tract History of tobacco use 30 pack years Hydronephrosis 01/08/2018 mild left Hypertriglyceridemia 06/21/2015 Internal hemorrhoids without mention of complication Kidney stone 01/08/2018 left OBESITY Other and unspecified hyperlipidemia Primary osteoarthritis of both hips 05/26/2021 Primary osteoarthritis of both knees 03/30/2014 Snoring Previous Surgical History PAST SURGICAL HISTORY Procedure Laterality Date COLONOSCOPY FLX DX W/COLLJ SPEC WHEN PFRMD 07/30/11 repeat due 2015 (FHx) COLONOSCOPY FLX DX W/COLLJ SPEC WHEN PFRMD 07/06/16 normal - 5 year follow up for family history VASECTOMY UNI/BI SPX W/POSTOP SEMEN EXAMS Family History FAMILY HISTORY Problem Relation Age of Onset Heart Mother Cancer Father colon - ? - age 70 Heart Father Colon Cancer Paternal Uncle Patient Allergies ALLERGIES No Known Allergies Current Medications Current Outpatient Medications on File Prior to Visit Medication Sig etodolac (LODINE) 400 mg tablet Take 1 tablet by mouth twice daily as needed (joint pain). gemfibrozil (LOPID) 600 mg tablet Take 1 tablet by mouth twice daily. multivit with minerals/lutein (MULTIVITAMIN 50 PLUS ORAL) Take 1 tablet by mouth once daily. cholecalciferol, vitamin D3, (VITAMIN D3 ORAL) Take 5,000 Units by mouth once daily. omeprazole (PRILOSEC) 20 mg capsule TAKE 1 CAPSULE BY MOUTH EVERY DAY BEFORE BREAKFAST Valsartan-hydroCHLOROthiazide 320-25 mg per tablet Take 1 tablet by mouth once daily. diclofenac sodium (VOLTAREN ARTHRITIS PAIN TOPICAL) Apply to affected area. acetaminophen (TYLENOL EXTRA STRENGTH) 500 mg tablet Take 1 tablet by mouth every 6 hours as neededfor Pain. Coral-3 Fatty Acids (FISH OIL) 500 mg Cap Take 1 capsule by mouth once daily. No current facility-administered medications on file prior to visit. Social History Social History Tobacco Use Smoking status: Former Smoker Packs/day: 1.00 Years: 30.00 Pack years: 30.00 Quit date: 05/14/2009 Years since quittin.7 Smokeless tobacco: Never Used Tobacco comment: states smokes cigar occasionally Substance Use Topics Alcohol use: Yes Comment: occasional Drug use: No Review of Symptoms GENERAL: No weight loss, malaise or fevers. GI: No nausea, vomiting, or diarrhea. No blood in stool : No urinary symptoms. No burning, urgency or frequency. MUSCULOSKELETAL: Negative for generalized joint pain or muscle aches SKIN: see HPI EXAM: BP 128/70 Pulse 80 Temp 37.4 C (99.3 F) (Tympanic) Resp 18 Wt 120.2 kg (265 lb) SpO2 95% BMI 39.13 kg/m General Appearance: Well appearing, alert, in no acute distress, well-hydrated, well nourished. Obese Skin: Skin color, texture, turgor normal Head: Normocephalic, no masses, lesions Eyes: Anicteric sclera. Neck: Supple Lungs: Lungs clear to auscultation. No wheezing, rhonchi, rales. Heart: RRR without murmur, gallop, or rubs. No ectopy. GI: Soft and round. Nontender in epigastric region. No upper or lower quadrant abdominal tenderness. No rebound tenderness. No CVA tenderness. Negative Mcconnell sign . No organomegaly. Anus/Rectum: No hemorrhoidal skin tags. No active external hemorrhoid. No internal hemorrhoids. No fissure. No drainage or discharge. No mass. Small pilonidal cyst noted to the inferior portion of the right side of the gluteal cleft. Approximately 30 mm in length. Mucousy/pus discharge noted. No erythema or tenderness. Extremities: No deformities, edema, skin discoloration. Pulses: 2+ at radial. Psych: Attitude - cooperative, easily engaged in conversation Appearance - normal, hygiene and grooming appropriate Affect - euthymic, normal mood Mental status: Alert, attentive. Speech is clear and fluent with good repetition, comprehension Coordination: There are no abnormal or extraneous movements. Gait/Stance: Posture is normal. 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 Health Maintenance List LUNG CANCER SCREENING Never done DEPRESSION SCREENING due on 09/20/2018 DTAP,TDAP,TD(2 - Td or Tdap) due on 05/04/2021 COLORECTAL CANCER SCREENING due on 07/06/2021 COVID-19 VACCINE(3 - Booster for Moderna series) due on 07/31/2021 PROSTATE CANCER SCREENING DISCUSSION due on 10/06/2021 ANNUAL PCP TEAM CHRONIC DISEASE VISIT due on 11/29/2022 BP CONTROLLED (<130/80) due on 11/29/2022 DIABETES SCREEN due on 07/01/2024 LIPID SCREEN due on 05/26/2026 INFLUENZA Completed HEPATITIS C SCREENING Completed SHINGRIX VACCINE Completed MENINGOCOCCAL CONJUGATE Aged Out HIV SCREENING Discontinued Data reviewed Last 5 Encounter BP Readings: Date: BP: 11/29/2021 124/76 06/08/2021 126/79 05/05/2021 122/62 03/21/2021 152/80 10/18/2020 128/86 BMI Readings from Last 5 Encounters: 02/23/22 : 39.13 kg/m 11/29/21 : 42.09 kg/m 06/08/21 : 43.71 kg/m 05/05/21 : 43.42 kg/m 03/21/21 : 43.56 kg/m Last 5 Encounter Wt Readings: Date: Wt: 11/29/2021 129.3 kg (285 lb) 06/08/2021 134.3 kg (296 lb) 05/05/2021 133.4 kg (294 lb) 03/21/2021 133.8 kg (295 lb) 10/18/2020 136.1 kg (300 lb) Medication and allergy list reviewed, reconciled and updated 02/23/2022 ASSESSMENT/PLAN: 1. Pilonidal cyst - ICD9: 685.1, ICD10: L05.91 (primary diagnosis) MDM: Small appearing pilonidal cyst to the right side of the gluteal cleft. Just above the anal opening. Mucousy discharge noted. Recommend consultation with general surgery for further evaluation. No bleeding noted per rectum. Empirically treat with Bactrim x7 days. Reviewed treatment course and red flag symptoms, worsening pain, swelling or redness. If symptoms would significantly worsen go to the ER Plan: Bactrim x7 days, general surgery consult - SULFAMETHOXAZOLE 800 MG-TRIMETHOPRIM 160 MG TABLET - CONSULT TO GENERAL SURGERY 2. Obesity, Class II, BMI 35-39.9 - ICD9: 278.00, ICD10: E66.9 Chronic and stable weight Recommend regular physical activity, nutrition and healthy eating habits. Consume a variety of foods every day focusing on fruits, vegetables and lean meats). Eat foods low in fat, saturated fat and cholesterol. Eat a limited amount of salt and sodium. Drink adequate amounts of water and limit sugary drinks. Exercise portion control in meal selection. Establish a mindset of a wellness approach to health. Vinicius Gould APRN.ALEJANDRO CALIX This note was completed with [employer] dictation software. Note was reviewed for accuracy. There may be minor misspellings or grammar miscues with [employer] Dictation. I spent a total of 25 minutes on the date of the service which included preparing to see the patient, [id number] patient care, completing clinical documentation, performing a medically appropriate examination, counseling and educating the patient/family/caregiver and ordering medications, tests, or procedures. [place] [id number] documented in this encounterHocking Valley [facility]05-13-2022 Miscellaneous Notes* Telephone Encounter - Albert Jensen - 02/23/2022 10:28 AM EDT Due to patients BMI needs office consult with Hailey Hodges or Nayely Hopson prior to procedure please schedule DDSI consult documented in this encounterHocking Valley [facility]04-12-2022 Miscellaneous Notes* Telephone Encounter - Linda Carr - 01/23/2022 5:59 PM EDT Sent patient colonoscopy letter Linda Carr PSS * Telephone Encounter - Linda Carr - 01/17/2022 3:17 PM EDT Left message to return call and schedule his colonoscopy. Linda Carr PSS * Telephone Encounter - Marnie Pastrana LPN - 01/15/2022 1:46 PM EDT PSS contact Patient to schedule. Marnie Pastrana LPN * Telephone Encounter - Noemi Fung APRN.CNP - 01/15/2022 10:03 AM EDT Order filed Noemi Fung APRN.CNP * Telephone Encounter - Kriss Mccord Pss - 01/15/2022 8:33 AM EDT Patient called to schedule his colonoscopy. [facility] will not allow scheduling; says there is not a valid order in system. Tried scheduling through the referral and the finalized requests tab, but neither worked. Please advise patient when corrected. He is asking for a return call on Saturday after 4 pm. [phone]. documented in this encounterHocking Valley [facility] Hospital04-04-2022 Miscellaneous Notes* Telephone Encounter - Lakshmi Paula LPN - 01/15/2022 2:54 PM EDT Last appt with pcp 11/29/21 Next is 04/04/22. * Telephone Encounter - Kriss Mccord Pss - 01/15/2022 8:18 AM EDT Patient has been identified by name and date of : Yes Pending Prescriptions Disp Refills ETODOLAC 400 MG TABLET 60 tablet 1 Sig: Take 1 tablet by mouth twice daily as needed (joint pain). BRYANT: No RX INSTRUCTIONS: Patient aware RX will be sent to pharmacy. No need to notify patient. Kriss Mccord Pss documented in this encounterHocking Valley [facility]03-24-2022 Miscellaneous Notes* Telephone Encounter - Alycia Patricia LPN - 01/04/2022 11:48 AM EDT Left a detailed message with information listed below. Alycia Patricia LPN * Telephone Encounter - Alycia Patricia LPN - 01/01/2022 4:45 PM EDT Left a message for pt to call the office and ask to speak to a triage nurse. Alycia Patricia LPN * Telephone Encounter - Vinh Aguilar MD - 12/26/2021 5:59 PM EDT 1) Okay to resume gemfibrozil twice daily. 2) If symptoms do not improve, which means it is not from fenofibrate, schedule an office visit. * Telephone Encounter - Alycia Patricia LPN - 12/26/2021 3:48 PM EDT Pt called in to let you know he is stopping the Fenofibrate medication and going back on what he was taking before (gemfibrozil) . Before he was doing good and now he is getting a burning sensation in the hip area and knees hurt. Please advise. Alycia Patricia LPN documented in this encounterHocking Valley [facility]07-23-2021 History of Present illness Narrative* Ni Spencer RT(R) - 05/05/2021 11:00 AM EDT Radiology Service Progress Note PATIENT NAME: Miles Turner DATE OF SERVICE: May 05, 2021 TIME: 11:34 AM PATIENT IDENTITY VERIFICATION COMPLETED USING TWO (2) IDENTIFIERS: Name and Date of confirmedby patient verbally. FALL SCREENING: Has the patient had 2 falls in the last year or 1 fall with injury or currently using an Ambulatory Assistive Device (Walker, Cane, Wheelchair, Crutches, etc.)? No PATIENT GENDER DATA: Male PATIENT RELEVANT IMPLANT DATA REVIEWED: Not Applicable RADIOLOGY DEPARTMENT: General X-ray: Exam(s) Completed: Spine X-Ray(s): Lumbar AP / LAT / L5-S1 Pelvis X-Ray: Pelvis with Hip Left PERIPHERAL IV DATA: Not applicable SIGNED BY: RT Amish(R) May 05, 2021 11:34 AM documented in this encounterHocking Valley [facility] Hospital08-04-2014 History of Past illness Narrative* Problem Noted Date Resolved Date Left knee pain 05/17/2014 11/29/2021 Last Assessment & Plan: He has severe arthritis of the knee, b/l it is 6/7 years More of waiting. meloxicam did help her and it is still helping him but he needs greater relief. He has gained some weight and that worsens the knee pain. 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 Medial epicondylitis 12/03/2009 11/29/2021 Anal fissure 05/20/2008 06/30/2010 Rash and other nonspecific skin eruption 008 11/29/2021 Essential hypertension, benign 0 11/24/2007 HYPERLIPIDEMIA NEC/NOS 5 Arthritis of knee 11/30/2021 Overview: right documented as of this encounter (statuses as of 01/04/2022) [facility] of Past illness Narrative* Problem Noted Date Resolved Date Left knee pain 05/17/2014 11/29/2021 Last Assessment & Plan: He has severe arthritis of the knee, b/l it is 6/7 years More of waiting. meloxicam did help her and it is still helping him but he needs greater relief. He has gained some weight and that worsens the knee pain. 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 Medial epicondylitis 12/03/2009 11/29/2021 Anal fissure 05/20/2008 06/30/2010 Rash and other nonspecific skin eruption 008 11/29/2021 Essential hypertension, benign 0 11/24/2007 HYPERLIPIDEMIA NEC/NOS 5 Arthritis of knee 11/30/2021 Overview: right documented as of this encounter (statuses as of 01/15/2022) [facility] of Past illness Narrative* Problem Noted Date Resolved Date Left knee pain 05/17/2014 11/29/2021 Last Assessment & Plan: He has severe arthritis of the knee, b/l it is 6/7 years More of waiting. meloxicam did help her and it is still helping him but he needs greater relief. He has gained some weight and that worsens the knee pain. 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 Medial epicondylitis 12/03/2009 11/29/2021 Anal fissure 05/20/2008 06/30/2010 Rash and other nonspecific skin eruption 008 11/29/2021 Essential hypertension, benign 0 11/24/2007 HYPERLIPIDEMIA NEC/NOS 5 Arthritis of knee 11/30/2021 Overview: right documented as of this encounter (statuses as of 01/23/2022) [facility] of Past illness Narrative* Problem Noted Date Resolved Date Left knee pain 05/17/2014 11/29/2021 Last Assessment & Plan: He has severe arthritis of the knee, b/l it is 6/7 years More of waiting. meloxicam did help her and it is still helping him but he needs greater relief. He has gained some weight and that worsens the knee pain. 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 Medial epicondylitis 12/03/2009 11/29/2021 Anal fissure 05/20/2008 06/30/2010 Rash and other nonspecific skin eruption 008 11/29/2021 Essential hypertension, benign 0 11/24/2007 HYPERLIPIDEMIA NEC/NOS 5 Arthritis of knee 11/30/2021 Overview: right documented as of this encounter (statuses as of 02/23/2022) [facility] of Past illness Narrative* Problem Noted Date Resolved Date Left knee pain 05/17/2014 11/29/2021 Last Assessment & Plan: He has severe arthritis of the knee, b/l it is 6/7 years More of waiting. meloxicam did help her and it is still helping him but he needs greater relief. He has gained some weight and that worsens the knee pain. 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 Medial epicondylitis 12/03/2009 11/29/2021 Anal fissure 05/20/2008 06/30/2010 Rash and other nonspecific skin eruption 008 11/29/2021 Essential hypertension, benign 0 11/24/2007 HYPERLIPIDEMIA NEC/NOS 5 Arthritis of knee 11/30/2021 Overview: right documented as of this encounter (statuses as of 02/27/2022) [facility] of Past illness Narrative* Problem Noted Date Resolved Date Left knee pain 05/17/2014 11/29/2021 Last Assessment & Plan: He has severe arthritis of the knee, b/l it is 6/7 years More of waiting. meloxicam did help her and it is still helping him but he needs greater relief. He has gained some weight and that worsens the knee pain. 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 Medial epicondylitis 12/03/2009 11/29/2021 Anal fissure 05/20/2008 06/30/2010 Rash and other nonspecific skin eruption 008 11/29/2021 Essential hypertension, benign 0 11/24/2007 HYPERLIPIDEMIA NEC/NOS 5 Arthritis of knee 11/30/2021 Overview: right documented as of this encounter (statuses as of 02/27/2022) [facility] of Past illness Narrative* Problem Noted Date Resolved Date Left knee pain 05/17/2014 11/29/2021 Last Assessment & Plan: He has severe arthritis of the knee, b/l it is 6/7 years More of waiting. meloxicam did help her and it is still helping him but he needs greater relief. He has gained some weight and that worsens the knee pain. 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 Medial epicondylitis 12/03/2009 11/29/2021 Anal fissure 05/20/2008 06/30/2010 Rash and other nonspecific skin eruption 008 11/29/2021 Essential hypertension, benign 0 11/24/2007 HYPERLIPIDEMIA NEC/NOS 5 Arthritis of knee 11/30/2021 Overview: right documented as of this encounter (statuses as of 03/17/2022) [facility] of Past illness Narrative* Problem Noted Date Resolved Date Left knee pain 05/17/2014 11/29/2021 Last Assessment & Plan: He has severe arthritis of the knee, b/l it is 6/7 years More of waiting. meloxicam did help her and it is still helping him but he needs greater relief. He has gained some weight and that worsens the knee pain. 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 Medial epicondylitis 12/03/2009 11/29/2021 Anal fissure 05/20/2008 06/30/2010 Rash and other nonspecific skin eruption 008 11/29/2021 Essential hypertension, benign 0 11/24/2007 HYPERLIPIDEMIA NEC/NOS 5 Arthritis of knee 11/30/2021 Overview: right documented as of this encounter (statuses as of 04/06/2022) [facility] of [facility] illness Narrative* Problem Noted Date Resolved Date Left knee pain 05/17/2014 11/29/2021 Last Assessment & Plan: He has severe arthritis of the knee, b/l it is 6/7 years More of waiting. meloxicam did help her and it is still helping him but he needs greater relief. He has gained some weight and that worsens the knee pain. 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 Medial epicondylitis 12/03/2009 11/29/2021 Anal fissure 05/20/2008 06/30/2010 Rash and other nonspecific skin eruption 008 11/29/2021 Essential hypertension, benign 0 11/24/2007 HYPERLIPIDEMIA NEC/NOS 5 Arthritis of knee 11/30/2021 Overview: right documented as of this encounter (statuses as of 04/06/2022) [facility] of Past illness Narrative* Problem Noted Date Resolved Date Left knee pain 05/17/2014 11/29/2021 Last Assessment & Plan: He has severe arthritis of the knee, b/l it is 6/7 years More of waiting. meloxicam did help her and it is still helping him but he needs greater relief. He has gained some weight and that worsens the knee pain. 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 Medial epicondylitis 12/03/2009 11/29/2021 Anal fissure 05/20/2008 06/30/2010 Rash and other nonspecific skin eruption 008 11/29/2021 Essential hypertension, benign 0 11/24/2007 HYPERLIPIDEMIA NEC/NOS 5 Arthritis of knee 11/30/2021 Overview: right documented as of this encounter (statuses as of 05/04/2022) [facility] illness Narrative* Problem Noted Date Resolved Date Left knee pain 05/17/2014 11/29/2021 Last Assessment & Plan: He has severe arthritis of the knee, b/l it is 6/7 years More of waiting. meloxicam did help her and it is still helping him but he needs greater relief. He has gained some weight and that worsens the knee pain. 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 Medial epicondylitis 12/03/2009 11/29/2021 Anal fissure 05/20/2008 06/30/2010 Rash and other nonspecific skin eruption 008 11/29/2021 Essential hypertension, benign 0 11/24/2007 HYPERLIPIDEMIA NEC/NOS 5 Arthritis of knee 11/30/2021 Overview: right documented as of this encounter (statuses as of 05/24/2022) [facility] History of Past illness Narrative* Problem Noted Date Resolved Date Left knee pain 05/17/2014 11/29/2021 Last Assessment & Plan: He has severe arthritis of the knee, b/l it is 6/7 years More of waiting. meloxicam did help her and it is still helping him but he needs greater relief. He has gained some weight and that worsens the knee pain. 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 Medial epicondylitis 12/03/2009 11/29/2021 Anal fissure 05/20/2008 06/30/2010 Rash and other nonspecific skin eruption 008 11/29/2021 Essential hypertension, benign 0 11/24/2007 HYPERLIPIDEMIA NEC/NOS 5 Arthritis of knee 11/30/2021 Overview: right documented as of this encounter (statuses as of 06/22/2022) [facility] History of Past illness Narrative* Problem Noted Date Resolved Date Left knee pain 05/17/2014 11/29/2021 Last Assessment & Plan: He has severe arthritis of the knee, b/l it is 6/7 years More of waiting. meloxicam did help her and it is still helping him but he needs greater relief. He has gained some weight and that worsens the knee pain. 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 Medial epicondylitis 12/03/2009 11/29/2021 Anal fissure 05/20/2008 06/30/2010 Rash and other nonspecific skin eruption 008 11/29/2021 Essential hypertension, benign 0 11/24/2007 HYPERLIPIDEMIA NEC/NOS 5 Arthritis of knee 11/30/2021 Overview: right documented as of this encounter (statuses as of 07/18/2022) [facility] History of Past illness Narrative* Problem Noted Date Resolved Date Left knee pain 05/17/2014 11/29/2021 Last Assessment & Plan: He has severe arthritis of the knee, b/l it is 6/7 years More of waiting. meloxicam did help her and it is still helping him but he needs greater relief. He has gained some weight and that worsens the knee pain. 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 Medial epicondylitis 12/03/2009 11/29/2021 Anal fissure 05/20/2008 06/30/2010 Rash and other nonspecific skin eruption 008 11/29/2021 Essential hypertension, benign 0 11/24/2007 HYPERLIPIDEMIA NEC/NOS 5 Arthritis of knee 11/30/2021 Overview: right documented as of this encounter (statuses as of 11/07/2022) [facility] History of Past illness Narrative* Problem Noted Date Resolved Date Left knee pain 05/17/2014 11/29/2021 Last Assessment & Plan: He has severe arthritis of the knee, b/l it is 6/7 years More of waiting. meloxicam did help her and it is still helping him but he needs greater relief. He has gained some weight and that worsens the knee pain. 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 Medial epicondylitis 12/03/2009 11/29/2021 Anal fissure 05/20/2008 06/30/2010 Rash and other nonspecific skin eruption 008 11/29/2021 Essential hypertension, benign 0 11/24/2007 HYPERLIPIDEMIA NEC/NOS 5 Arthritis of knee 11/30/2021 Overview: right documented as of this encounter (statuses as of 11/19/2022) [facility] History of Past illness Narrative* Problem Noted Date Resolved Date Left knee pain 05/17/2014 11/29/2021 Last Assessment & Plan: He has severe arthritis of the knee, b/l it is 6/7 years More of waiting. meloxicam did help her and it is still helping him but he needs greater relief. He has gained some weight and that worsens the knee pain. 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 Medial epicondylitis 12/03/2009 11/29/2021 Anal fissure 05/20/2008 06/30/2010 Rash and other nonspecific skin eruption 008 11/29/2021 Essential hypertension, benign 0 11/24/2007 HYPERLIPIDEMIA NEC/NOS 5 Arthritis of knee 11/30/2021 Overview: right documented as of this encounter (statuses as of 11/28/2022) [facility] History of Past illness Narrative* Problem Noted Date Resolved Date Left knee pain 05/17/2014 11/29/2021 Last Assessment & Plan: He has severe arthritis of the knee, b/l it is 6/7 years More of waiting. meloxicam did help her and it is still helping him but he needs greater relief. He has gained some weight and that worsens the knee pain. 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 Medial epicondylitis 12/03/2009 11/29/2021 Anal fissure 05/20/2008 06/30/2010 Rash and other nonspecific skin eruption 008 11/29/2021 Essential hypertension, benign 0 11/24/2007 HYPERLIPIDEMIA NEC/NOS 5 Arthritis of knee 11/30/2021 Overview: right documented as of this encounter (statuses as of 01/15/2023) [facility] History of Past illness Narrative* Problem Noted Date Resolved Date Left knee pain 05/17/2014 11/29/2021 Last Assessment & Plan: He has severe arthritis of the knee, b/l it is 6/7 years More of waiting. meloxicam did help her and it is still helping him but he needs greater relief. He has gained some weight and that worsens the knee pain. 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 Medial epicondylitis 12/03/2009 11/29/2021 Anal fissure 05/20/2008 06/30/2010 Rash and other nonspecific skin eruption 008 11/29/2021 Essential hypertension, benign 0 11/24/2007 HYPERLIPIDEMIA NEC/NOS 5 Arthritis of knee 11/30/2021 Overview: right documented as of this encounter (statuses as of 04/04/2023) [facility] History of Past illness Narrative* Problem Noted Date Diagnosed Date Resolved Date Left knee pain 05/17/2014 11/29/2021 Last Assessment & Plan: He has severe arthritis of the knee, b/l it is 6/7 years More of waiting. meloxicam did help her and it is still helping him but he needs greater relief. He has gained some weight and that worsens the knee pain. 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 Medial epicondylitis 12/03/2009 022 Anal fissure 05/20/2008 06/30/2010 Rash and other nonspecific skin eruption 05/20/2008 11/29/2021 Essential hypertension, benign 11/24/2007 HYPERLIPIDEMIA NEC/NOS 06/21 Arthritis of knee 11/30/2021 Overview: right documented as of this encounter (statuses as of 04/24/2023) [facility] History of Past illness Narrative* Problem Noted Date Diagnosed Date Resolved Date Left knee pain 05/17/2014 11/29/2021 Last Assessment & Plan: He has severe arthritis of the knee, b/l it is 6/7 years More of waiting. meloxicam did help her and it is still helping him but he needs greater relief. He has gained some weight and that worsens the knee pain. 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 Medial epicondylitis 12/03/2009 022 Anal fissure 05/20/2008 06/30/2010 Rash and other nonspecific skin eruption 05/20/2008 11/29/2021 Essential hypertension, benign 11/24/2007 HYPERLIPIDEMIA NEC/NOS 06/21 Arthritis of knee 11/30/2021 Overview: right documented as of this encounter (statuses as of 05/14/2023) [facility] History of Past illness Narrative* Problem Noted Date Diagnosed Date Resolved Date Left knee pain 05/17/2014 11/29/2021 Last Assessment & Plan: He has severe arthritis of the knee, b/l it is 6/7 years More of waiting. meloxicam did help her and it is still helping him but he needs greater relief. He has gained some weight and that worsens the knee pain. 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 Medial epicondylitis 12/03/2009 022 Anal fissure 05/20/2008 06/30/2010 Rash and other nonspecific skin eruption 05/20/2008 11/29/2021 Essential hypertension, benign 11/24/2007 HYPERLIPIDEMIA NEC/NOS 06/21 Arthritis of knee 11/30/2021 Overview: right documented as of this encounter (statuses as of 08/18/2023) [facility] History of Past illness Narrative* Problem Noted Date Diagnosed Date Resolved Date Left knee pain 05/17/2014 11/29/2021 Last Assessment & Plan: He has severe arthritis of the knee, b/l it is 6/7 years More of waiting. meloxicam did help her and it is still helping him but he needs greater relief. He has gained some weight and that worsens the knee pain. 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 Medial epicondylitis 12/03/2009 022 Anal fissure 05/20/2008 06/30/2010 Rash and other nonspecific skin eruption 05/20/2008 11/29/2021 Essential hypertension, benign 11/24/2007 HYPERLIPIDEMIA NEC/NOS 06/21 Arthritis of knee 11/30/2021 Overview: right documented as of this encounter (statuses as of 11/21/2023) [facility] History of Past illness Narrative* Problem Noted Date Diagnosed Date Resolved Date Left knee pain 05/17/2014 11/29/2021 Last Assessment & Plan: He has severe arthritis of the knee, b/l it is 6/7 years More of waiting. meloxicam did help her and it is still helping him but he needs greater relief. He has gained some weight and that worsens the knee pain. 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 Medial epicondylitis 12/03/2009 022 Anal fissure 05/20/2008 06/30/2010 Rash and other nonspecific skin eruption 05/20/2008 11/29/2021 Essential hypertension, benign 11/24/2007 HYPERLIPIDEMIA NEC/NOS 06/21 Arthritis of knee 11/30/2021 Overview: right documented as of this encounter (statuses as of 11/25/2023) [facility] History of Past illness Narrative* Problem Noted Date Diagnosed Date Resolved Date Left knee pain 05/17/2014 11/29/2021 Last Assessment & Plan: He has severe arthritis of the knee, b/l it is 6/7 years More of waiting. meloxicam did help her and it is still helping him but he needs greater relief. He has gained some weight and that worsens the knee pain. 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 Medial epicondylitis 12/03/2009 022 Anal fissure 05/20/2008 06/30/2010 Rash and other nonspecific skin eruption 05/20/2008 11/29/2021 Essential hypertension, benign 11/24/2007 HYPERLIPIDEMIA NEC/NOS 06/21 Arthritis of knee 11/30/2021 Overview: right documented as of this encounter (statuses as of 12/02/2023) [facility] History of Past illness Narrative* Problem Noted Date Diagnosed Date Resolved Date Left knee pain 05/17/2014 11/29/2021 Last Assessment & Plan: He has severe arthritis of the knee, b/l it is 6/7 years More of waiting. meloxicam did help her and it is still helping him but he needs greater relief. He has gained some weight and that worsens the knee pain. 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 Medial epicondylitis 12/03/2009 022 Anal fissure 05/20/2008 06/30/2010 Rash and other nonspecific skin eruption 05/20/2008 11/29/2021 Essential hypertension, benign 11/24/2007 HYPERLIPIDEMIA NEC/NOS 06/21 Arthritis of knee 11/30/2021 Overview: right documented as of this encounter (statuses as of 02/01/2024) [facility] History of Past illness Narrative* Problem Noted Date Diagnosed Date Resolved Date Left knee pain 05/17/2014 11/29/2021 Last Assessment & Plan: He has severe arthritis of the knee, b/l it is 6/7 years More of waiting. meloxicam did help her and it is still helping him but he needs greater relief. He has gained some weight and that worsens the knee pain. 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 Medial epicondylitis 12/03/2009 022 Anal fissure 05/20/2008 06/30/2010 Rash and other nonspecific skin eruption 05/20/2008 11/29/2021 Essential hypertension, benign 11/24/2007 HYPERLIPIDEMIA NEC/NOS 06/21 Arthritis of knee 11/30/2021 Overview: right documented as of this encounter (statuses as of 02/03/2024) [facility] [place] [facility] Diagnosis Hypertriglyceridemia Pure hyperglyceridemia [facility] Pain in left hip Pain in joint, pelvic region and thigh [facility] Diagnosis Special screening for malignant neoplasms, colon- Primary [facility] Diagnosis Pilonidal cyst- Primary Pilonidal cyst without mention of abscess Obesity, Class II, BMI 35-39.9 Obesity, unspecified [facility] Diagnosis Perianal abscess- Primary Abscess of anal and rectal regions [facility] Diagnosis Hypertriglyceridemia Pure hyperglyceridemia [facility]* Diagnosis Wellness examination- Primary Need for vaccination Need for prophylactic vaccination and inoculation against unspecified single disease [facility] Diagnosis Polyp of sigmoid colon, unspecified type- Primary Family history of colon cancer Family history of malignant neoplasm of gastrointestinal tract [facility] Diagnosis Pain in left hip Pain in joint, pelvic region and thigh [facility] Diagnosis Hypertriglyceridemia- Primary Pure hyperglyceridemia Essential hypertension Unspecified essential hypertension Vitamin D deficiency Unspecified vitamin D deficiency Screening for prostate cancer Special screening for malignant neoplasm of prostate [facility] Diagnosis Pain in left hip Pain in joint, pelvic region and thigh Gastroesophageal reflux disease without esophagitis Esophageal reflux [facility] Diagnosis Family history of colon cancer- Primary Family history of malignant neoplasm of gastrointestinal tract [facility] Diagnosis Essential hypertension Unspecified essential hypertension [facility] Diagnosis Primary osteoarthritis of both knees- Primary Primary localized osteoarthrosis, lower leg Gastroesophageal reflux disease, unspecified whether esophagitis present Primary osteoarthritis of left hip Primary localized osteoarthrosis, pelvic region and thigh [facility] Diagnosis Hypertriglyceridemia Pure hyperglyceridemia [facility] [place] [facility] Diagnosis Routine medical exam- Primary Routine general medical examination at a health care facility Gastroesophageal reflux disease without esophagitis Esophageal reflux Pain in left hip Pain in joint, pelvic region and thigh Essential hypertension Unspecified essential hypertension Hypertriglyceridemia Pure hyperglyceridemia Obesity, Class III, BMI 40-49.9 (morbid obesity) ([facility]) Morbid obesity [facility] [place] [facility] Diagnosis Pain in both knees, unspecified chronicity [facility] Diagnosis Essential hypertension- Primary Unspecified essential hypertension Gastroesophageal reflux disease without esophagitis Esophageal reflux Hypertriglyceridemia Pure hyperglyceridemia Vitamin D deficiency Unspecified vitamin D deficiency Primary osteoarthritis of both knees Primary localized osteoarthrosis, lower leg documented in this encounter [facility] [place] [facility]* Diagnosis Primary osteoarthritis of both knees- Primary Primary localized osteoarthrosis, lower leg [facility] [place] [facility] Diagnosis Primary osteoarthritis of both knees- Primary Primary localized osteoarthrosis, lower leg [facility] [place] [facility] Diagnosis Primary osteoarthritis of right hip- Primary Primary localized osteoarthrosis, pelvic region and thigh Primary osteoarthritis of both knees Primary localized osteoarthrosis, lower leg documented in this encounter [facility] [place] [facility]* Diagnosis Primary osteoarthritis of right hip- Primary Primary localized osteoarthrosis, pelvic region and thigh [facility] [place] [facility]* Diagnosis Onset Date Resolution Status Osteoarthritis of right hip acute [facility] Work Phone: Evaluation note* Diagnosis Hypertriglyceridemia Pure hyperglyceridemia [facility] [place] [facility]* Diagnosis Routine medical exam- Primary Routine general medical examination at a health care facility Essential hypertension Unspecified essential hypertension Primary osteoarthritis of both knees Primary localized osteoarthrosis, lower leg Primary osteoarthritis of both hips Primary localized osteoarthrosis, pelvic region and thigh Leg weakness, bilateral Other musculoskeletal symptoms referable to limbs Screening for depression Encounter for screening examination for other mental health and behavioral disorders Acrochordon Unspecified hypertrophic and atrophic condition of skin [facility] [place] [facility] Diagnosis Elevated ferritin- Primary Other abnormal blood chemistry Primary osteoarthritis of both knees Primary localized osteoarthrosis, lower leg Primary osteoarthritis of both hips Primary localized osteoarthrosis, pelvic region and thigh [facility] Primary osteoarthritis of both knees- Primary Primary localized osteoarthrosis, lower leg Primary osteoarthritis of both hips Primary localized osteoarthrosis, pelvic region and thigh [facility] [place] [facility] Diagnosis Establishing care with new doctor, encounter for- Primary Other reasons for seeking consultation Hypertriglyceridemia Pure hyperglyceridemia HYPERTENSION NOS Unspecified essential hypertension Left knee pain Pain in joint, lower leg Obesity Obesity, unspecified Left knee pain- Primary Pain in joint, lower leg Non morbid obesity due to excess calories Mixed hyperlipidemia Prostate cancer screening Special screening for malignant neoplasm of prostate Family hx of colon cancer Family history of malignant neoplasm of gastrointestinal tract Hypertriglyceridemia Pure hyperglyceridemia Arthritis of knee- Primary Unspecified arthropathy, lower leg Hypertriglyceridemia Pure hyperglyceridemia OBESITY Obesity, unspecified Unspecified essential hypertension Primary osteoarthritis of both knees- Primary Primary localized osteoarthrosis, lower leg Primary osteoarthritis of both hips Primary localized osteoarthrosis, pelvic region and thigh documented in this encounter [facility] [place] [facility]* Diagnosis Establishing care with new doctor, encounter for- Primary Other reasons for seeking consultation Hypertriglyceridemia Pure hyperglyceridemia HYPERTENSION NOS Unspecified essential hypertension Left knee pain Pain in joint, lower leg Obesity Obesity, unspecified Left knee pain- Primary Pain in joint, lower leg Non morbid obesity due to excess calories Mixed hyperlipidemia Prostate cancer screening Special screening for malignant neoplasm of prostate Family hx of colon cancer Family history of malignant neoplasm of gastrointestinal tract Hypertriglyceridemia Pure hyperglyceridemia Arthritis of knee- Primary Unspecified arthropathy, lower leg Hypertriglyceridemia Pure hyperglyceridemia OBESITY Obesity, unspecified Unspecified essential hypertension Gastroesophageal reflux disease without esophagitis Esophageal reflux documented in this encounter [facility] [place] [facility]* Diagnosis Establishing care with new doctor, encounter for- Primary Other reasons for seeking consultation Hypertriglyceridemia Pure hyperglyceridemia HYPERTENSION NOS Unspecified essential hypertension Left knee pain Pain in joint, lower leg Obesity Obesity, unspecified Left knee pain- Primary Pain in joint, lower leg Non morbid obesity due to excess calories Mixed hyperlipidemia Prostate cancer screening Special screening for malignant neoplasm of prostate Family hx of colon cancer Family history of malignant neoplasm of gastrointestinal tract Hypertriglyceridemia Pure hyperglyceridemia Arthritis of knee- Primary Unspecified arthropathy, lower leg Hypertriglyceridemia Pure hyperglyceridemia OBESITY Obesity, unspecified Unspecified essential hypertension Hip pain, acute, left Tenderness of back documented in this encounter [facility] [place] [facility]* Diagnosis Establishing care with new doctor, encounter for- Primary Other reasons for seeking consultation Hypertriglyceridemia Pure hyperglyceridemia HYPERTENSION NOS Unspecified essential hypertension Left knee pain Pain in joint, lower leg Obesity Obesity, unspecified Left knee pain- Primary Pain in joint, lower leg Non morbid obesity due to excess calories Mixed hyperlipidemia Prostate cancer screening Special screening for malignant neoplasm of prostate Family hx of colon cancer Family history of malignant neoplasm of gastrointestinal tract Hypertriglyceridemia Pure hyperglyceridemia Arthritis of knee- Primary Unspecified arthropathy, lower leg Hypertriglyceridemia Pure hyperglyceridemia OBESITY Obesity, unspecified Unspecified essential hypertension Essential hypertension Unspecified essential hypertension [facility] [place] [facility] Diagnosis Establishing care with new doctor, encounter for- Primary Other reasons for seeking consultation Hypertriglyceridemia Pure hyperglyceridemia HYPERTENSION NOS Unspecified essential hypertension Left knee pain Pain in joint, lower leg Obesity Obesity, unspecified Left knee pain- Primary Pain in joint, lower leg Non morbid obesity due to excess calories Mixed hyperlipidemia Prostate cancer screening Special screening for malignant neoplasm of prostate Family hx of colon cancer Family history of malignant neoplasm of gastrointestinal tract Hypertriglyceridemia Pure hyperglyceridemia Arthritis of knee- Primary Unspecified arthropathy, lower leg Hypertriglyceridemia Pure hyperglyceridemia OBESITY Obesity, unspecified Unspecified essential hypertension Primary osteoarthritis of both knees Primary localized osteoarthrosis, lower leg Primary osteoarthritis of both hips Primary localized osteoarthrosis, pelvic region and thigh [facility] [place] [facility]* Diagnosis Establishing care with new doctor, encounter for- Primary Other reasons for seeking consultation Hypertriglyceridemia Pure hyperglyceridemia HYPERTENSION NOS Unspecified essential hypertension Left knee pain Pain in joint, lower leg Obesity Obesity, unspecified Left knee pain- Primary Pain in joint, lower leg Non morbid obesity due to excess calories Mixed hyperlipidemia Prostate cancer screening Special screening for malignant neoplasm of prostate Family hx of colon cancer Family history of malignant neoplasm of gastrointestinal tract Hypertriglyceridemia Pure hyperglyceridemia Arthritis of knee- Primary Unspecified arthropathy, lower leg Hypertriglyceridemia Pure hyperglyceridemia OBESITY Obesity, unspecified Unspecified essential hypertension Preoperative examination- Primary Preoperative examination, unspecified Essential hypertension Unspecified essential hypertension Primary osteoarthritis of both hips Primary localized osteoarthrosis, pelvic region and thigh Primary osteoarthritis of both knees Primary localized osteoarthrosis, lower leg Inflammatory polyarthropathy of multiple sites (HCC) documented in this encounter [facility] [place] [facility]* Diagnosis Establishing care with new doctor, encounter for- Primary Other reasons for seeking consultation Hypertriglyceridemia Pure hyperglyceridemia HYPERTENSION NOS Unspecified essential hypertension Left knee pain Pain in joint, lower leg Obesity Obesity, unspecified Left knee pain- Primary Pain in joint, lower leg Non morbid obesity due to excess calories Mixed hyperlipidemia Prostate cancer screening Special screening for malignant neoplasm of prostate Family hx of colon cancer Family history of malignant neoplasm of gastrointestinal tract Hypertriglyceridemia Pure hyperglyceridemia Arthritis of knee- Primary Unspecified arthropathy, lower leg Hypertriglyceridemia Pure hyperglyceridemia OBESITY Obesity, unspecified Unspecified essential hypertension Essential hypertension Unspecified essential hypertension Gastroesophageal reflux disease without esophagitis Esophageal reflux Primary osteoarthritis of both knees Primary localized osteoarthrosis, lower leg Primary osteoarthritis of both hips Primary localized osteoarthrosis, pelvic region and thigh Hypertriglyceridemia Pure hyperglyceridemia documented in this encounter [facility] for referral (narrative)* Outpatient Procedure (Routine) - Pending Review Specialty Diagnoses / Procedures Referred By Chris t Referred To Contact [facility] Diagnoses Special screening for malignant neoplasms, colon Procedures COLONOSCOPY SCREENING COLONOSCOPY FLX DX W/COLLJ SPEC WHEN PFRMD Noemi Fung APRN.CNP [address] [place] [address] [facility] [address] [place] [address] Referral ID Status Reason Start Date Expiration Date Visits Requested Visits Authorized [id number] Pending Review Auto-Generat ed Referral 01/15/2022 01/15/2023 1 1 T [facility] for referral (narrative)* Outpatient Procedure (Routine) - Closed Specialty Diagnoses / Procedures Referred By Chris us Referred To Contact [facility] Diagnoses Family history of colon cancer Procedures COLONOSCOPY SCREENING COLONOSCOPY FLX DX W/COLLJ SPEC WHEN PFRMD Hailey Hodges PA-C [address] [place] [address] [facility] [place] [id number] Referral ID Status Reason Start Date Expiration Date V isits Requested Visits Authorized [id number] Closed Auto-Generate d Referral 03/30/2022 03/30/2023 1 1 T [facility] for referral (narrative)* Diagnostic Procedure Only (Routine) - Closed Specialty Diagnoses / Procedures Referred By Contac t Referred To Contact XR IMAGING Diagnoses Pain in both knees, unspecified chronicity Procedures XR KNEE GENERAL 4V AP BOTH/PA BOTH/LAT/MERC BILATERAL RADIOLOGIC EXAM KNEE COMPLETE 4/MORE VIEWS Satish Rosas MD [address] [place] [address] [place] [address] Referral ID Status Reason Start Date Expiration Date V isits Requested Visits Authorized [id number] Closed Auto-Generate d Referral 02/27/2023 03/28/2024 1 1 [facility]No reason for referral information availableWWadsworth-[facility] Work Phone: Reason for visit Narrative* Diagnostic Procedure Only (Routine) - Closed Specialty Diagnoses / Procedures Referred By Contac t Referred To Contact XR IMAGING Diagnoses Pain in both knees, unspecified chronicity Procedures XR KNEE GENERAL 4V AP BOTH/PA BOTH/LAT/MERC BILATERAL RADIOLOGIC EXAM KNEE COMPLETE 4/MORE VIEWS Satish Rosas MD [address] [place] [address] [place] [address] Referral ID Status Reason Start Date Expiration Date V isits Requested Visits Authorized [id number] Closed Auto-Generate d Referral 02/27/2023 03/28/2024 1 1 [facility] Advance Directives No Advanced Directives Records FoundDocuments on File Type Date Recorded Patient Fur Matcher Expl anation Advance Directive(s) 07/06/2016 11:08 AM Documents on File Type Date Recorded Patient Fur Matcher Expl anation Advance Directive(s) 07/06/2016 11:08 AM Advance Directive Response Recorded Date/ Time Living Will No December 13, 2019 5:37pm Power of Table Games Supervisor No December 12 5:37pm Advance Directive Response Recorded Date/ Time Living Will No December 15, 2024 3:01pm Power of Table Games Supervisor No December 15 3:01pm Advance Directive Response Recorded Date/ Time Living Will No December 15, 2024 3:01pm Do you have a Healthcare Power of Table Games Supervisor? No December 15, 2024 3:01pm Advance Directive Response Recorded Date/ Time Living Will No December 15, 2024 3:01pm Do you have a Healthcare Power of Table Games Supervisor? No December 15, 2024 3:01pm Do you have a Healthcare Power of Table Games Supervisor? No February 10, 2025 9:12am Advance Directive Response Recorded Date/ Time Do you have a Healthcare Power of Table Games Supervisor? No February 10, 2025 9:12am Reason for Referral Specialty Diagnoses / Procedures Referred By Contac t Referred To Contact General Surgery Diagnoses Pilonidal cyst Procedures CONSULT TO GENERAL SURGERY OFFICE/OUTPATIENT [facility] 60-74 MINUTES Vinicius Gould APRN.DIRECTOR [employer]ATEGY, DNP [address] [place] [address] Referral ID Status Reason Start Date Expiration Date Visits Requested Visits Authorized [id number] Pending Review PCP Requested Referral 02/26/2022 02/23/2023 1 1 Specialty Diagnoses / Procedures Referred By Chris us Referred To Contact Rheumatology Diagnoses Primary osteoarthritis of both knees Primary osteoarthritis of both hips Procedures CONSULT TO RHEUM/IMMUN DISEASE Vinh Aguilar MD [address] [place] [address] Referral ID Status Reason Start Date Expiration Date Visits Requested Visits Authorized [id number] Ref Not Required PCP Requested Referral 05/21/2024 05/21/2025 1 1 Chief Complaint and Reason for Visit Chief Complaint RIGHT HIP INJECTION OSTEO RIGHT HIP INJECTION OSTEO Reason for Visit Osteoarthritis of ri ght hip Chief Complaint Admit Date PAIN- COPY PCP September 15, 2024 4 :01pm BILATERAL KNEES November 04, 2024 3 :53pm PAIN- COPY PCP November 11, 2024 4 :02pm ANA MARIA December 11, 2024 4:22pm BILATERAL KNEES December 16, 2024 3:58 pm Reason for Visit Admit Date Degenerative joint disease of left hip J anuary 2024 3:53pm Rheumatoid arthritis November 04, 2024 3:53pm Bilateral primary osteoarthritis of knee December 16, 2024 3:58pm Chief Complaint Admit Date PAIN- COPY PCP September 15, 2024 4 :01pm BILATERAL KNEES November 04, 2024 3 :53pm PAIN- COPY PCP November 11, 2024 4 :02pm ANA MARIA December 11, 2024 4:22pm BILATERAL KNEES December 16, 2024 3:58 pm Left Total Hip Replacement Robotic Arm A ssisted December 29, 2024 5:06am Left Total Hip Replacement Robotic Arm A ssisted December 29, 2024 7:25am Chief Complaint Admit Date BILATERAL KNEES November 04, 2024 3 :53pm PAIN- COPY PCP November 11, 2024 4 :02pm ANA MARIA December 11, 2024 4:22pm BILATERAL KNEES December 16, 2024 3:58 pm Left Total Hip Replacement Robotic Arm A ssisted December 29, 2024 5:06am Left Total Hip Replacement Robotic Arm A ssisted December 29, 2024 7:25am left hip January 11, 2025 10: 36am LTH/RTH DR TO FAX February 02, 2025 8:3 0am left hip February 08, 2025 10: 15am Room 2 February 08, 2025 10: 29am PAIN- COPY PCP February 09, 2025 8:3 7am RIGHT HIP PAIN OSTEO February 11, 2025 7:37a m Reason for Visit Admit Date Degenerative joint disease of left hip J anuary 2024 3:53pm Rheumatoid arthritis November 04, 2024 3:53pm Bilateral primary osteoarthritis of knee December 16, 2024 3:58pm Orthopedic aftercare January 11, 2025 10 :36am AVN of femur February 08, 2025 10: 15am Rheumatoid arthritis February 08, 2025 10 :15am Chief Complaint Admit Date BILATERAL KNEES November 04, 2024 3 :53pm PAIN- COPY PCP November 11, 2024 4 :02pm ANA MARIA December 11, 2024 4:22pm BILATERAL KNEES December 16, 2024 3:58 pm Left Total Hip Replacement Robotic Arm A ssied December 29, 2024 5:06am Left Total Hip Replacement Robotic Arm A ssied December 29, 2024 7:25am left hip January 11, 2025 10: 36am LTH/RTH DR TO FAX February 02, 2025 8:3 0am left hip February 08, 2025 10: 15am Room 2 February 08, 2025 10: 29am PAIN- COPY PCP February 09, 2025 8:3 7am RIGHT HIP PAIN OSTEO February 11, 2025 7:37a m Right Total Hip Replacement Robotic Arm Assisted, February 23, 2025 8:02am Right Total Hip Replacement Robotic Arm Assisted, February 23, 2025 10:20am Reason for Visit Admit Date Degenerative joint disease of left hip J anuary 2024 3:53pm Rheumatoid arthritis November 04, 2024 3:53pm Bilateral primary osteoarthritis of knee December 16, 2024 3:58pm Orthopedic aftercare January 11, 2025 10 :36am AVN of femur February 08, 2025 10: 15am Rheumatoid arthritis February 08, 2025 10 :15am Other acute postprocedural pain February 8:02am Chief Complaint Admit Date PAIN- COPY PCP November 11, 2024 4 :02pm ANA MARIA December 11, 2024 4:22pm BILATERAL KNEES December 16, 2024 3:58 pm Left Total Hip Replacement Robotic Arm A ssisted December 29, 2024 5:06am Left Total Hip Replacement Robotic Arm A ssisted December 29, 2024 7:25am left hip January 11, 2025 10: 36am LTH/RTH DR TO FAX February 02, 2025 8:3 0am left hip February 08, 2025 10: 15am Room 2 February 08, 2025 10: 29am PAIN- COPY PCP February 09, 2025 8:3 7am RIGHT HIP PAIN OSTEO February 11, 2025 7:37a m Right Total Hip Replacement Robotic Arm Assisted, February 23, 2025 8:02am Right Total Hip Replacement Robotic Arm Assisted, February 23, 2025 10:20am R ANA MARIA RX HERE March 09, 2025 2:30p m right hip March 10, 2025 9:02a m Reason for Visit Admit Date Bilateral primary osteoarthritis of knee December 16, 2024 3:58pm Orthopedic aftercare January 11, 2025 10 :36am AVN of femur February 08, 2025 10: 15am Rheumatoid arthritis February 08, 2025 10 :15am Other acute postprocedural pain February 8:02am Chief Complaint Admit Date ANA MARIA December 11, 2024 4:22pm BILATERAL KNEES December 16, 2024 3:58 pm Left Total Hip Replacement Robotic Arm A ssisted December 29, 2024 5:06am Left Total Hip Replacement Robotic Arm A ssisted December 29, 2024 7:25am left hip January 11, 2025 10: 36am LTH/RTH TO FAX February 02, 2025 8:3 0am left hip February 08, 2025 10: 15am Room 2 February 08, 2025 10: 29am PAIN- COPY PCP February 09, 2025 8:3 7am RIGHT HIP PAIN OSTEO February 11, 2025 7:37a m Right Total Hip Replacement Robotic Arm Assisted, February 23, 2025 8:02am Right Total Hip Replacement Robotic Arm Assisted, February 23, 2025 10:20am right hip March 10, 2025 9:02a m R ANA MARIA RX HERE April 01, 2025 11:0 0am Reason for Visit Admit Date Bilateral primary osteoarthritis of knee December 16, 2024 3:58pm Orthopedic aftercare January 11, 2025 10 :36am AVN of femur February 08, 2025 10: 15am Rheumatoid arthritis February 08, 2025 10 :15am Other acute postprocedural pain February 8:02am Orthopedic aftercare March 10, 2025 9:02 am Chief Complaint Admit Date BILATERAL KNEES December 16, 2024 3:58 pm Left Total Hip Replacement Robotic Arm A ssisted December 29, 2024 5:06am Left Total Hip Replacement Robotic Arm A ssisted December 29, 2024 7:25am left hip January 11, 2025 10: 36am LTH/RTH DR WADE FAX February 02, 2025 8:3 0am left hip February 08, 2025 10: 15am Room 2 February 08, 2025 10: 29am PAIN- COPY PCP February 09, 2025 8:3 7am RIGHT HIP PAIN OSTEO February 11, 2025 7:37a m Right Total Hip Replacement Robotic Arm Assisted, February 23, 2025 8:02am Right Total Hip Replacement Robotic Arm Assisted, February 23, 2025 10:20am right hip March 10, 2025 9:02a m R ANA MARIA RX HERE April 01, 2025 11:0 0am right hip April 12, 2025 8:04 am Room 3 April 12, 2025 8:19 am Chief Complaint Admit Date Left Total Hip Replacement Robotic Arm A ssisted December 29, 2024 5:06am Left Total Hip Replacement Robotic Arm A ssisted December 29, 2024 7:25am left hip January 11, 2025 10: 36am LTH/RTH DR TO FAX February 02, 2025 8:3 0am left hip February 08, 2025 10: 15am Room 2 February 08, 2025 10: 29am PAIN- COPY PCP February 09, 2025 8:3 7am RIGHT HIP PAIN OSTEO February 11, 2025 7:37a m Right Total Hip Replacement Robotic Arm Assisted, February 23, 2025 8:02am Right Total Hip Replacement Robotic Arm Assisted, February 23, 2025 10:20am right hip March 10, 2025 9:02a m R ANA MARIA RX HERE April 01, 2025 11:0 0am right hip April 12, 2025 8:04 am Room 3 April 12, 2025 8:19 am BL KNEES April 26, 2025 8:08 am Reason for Visit Admit Date Orthopedic aftercare January 11, 2025 10 :36am AVN of femur February 08, 2025 10: 15am Rheumatoid arthritis February 08, 2025 10 :15am Other acute postprocedural pain February 8:02am Orthopedic aftercare March 10, 2025 9:02 am Orthopedic aftercare April 12, 2025 8:0 4am Chief Complaint Admit Date left hip January 11, 2025 10: 36am LTH/RTH TO FAX February 02, 2025 8:3 0am left hip February 08, 2025 10: 15am Room 2 February 08, 2025 10: 29am PAIN- COPY PCP February 09, 2025 8:3 7am RIGHT HIP PAIN OSTEO February 11, 2025 7:37a m Right Total Hip Replacement Robotic Arm Assisted, February 23, 2025 8:02am Right Total Hip Replacement Robotic Arm Assisted, February 23, 2025 10:20am right hip March 10, 2025 9:02a m R ANA MARIA RX HERE April 01, 2025 11:0 0am right hip April 12, 2025 8:04 am Room 3 April 12, 2025 8:19 am BL KNEES April 26, 2025 8:08 am BL KNEE May 03, 2025 8:36 am Reason for Visit Admit Date Orthopedic aftercare January 11, 2025 10 :36am AVN of femur February 08, 2025 10: 15am Rheumatoid arthritis February 08, 2025 10 :15am Other acute postprocedural pain February 8:02am Orthopedic aftercare March 10, 2025 9:02 am Orthopedic aftercare April 12, 2025 8:0 4am Bilateral primary osteoarthritis of knee April 26, 2025 8:08am Chief Complaint Admit Date left hip January 11, 2025 10: 36am LTH/RTH DR TO FAX February 02, 2025 8:3 0am left hip February 08, 2025 10: 15am Room 2 February 08, 2025 10: 29am PAIN- COPY PCP February 09, 2025 8:3 7am RIGHT HIP PAIN OSTEO February 11, 2025 7:37a m Right Total Hip Replacement Robotic Arm Assisted, February 23, 2025 8:02am Right Total Hip Replacement Robotic Arm Assisted, February 23, 2025 10:20am right hip March 10, 2025 9:02a m R ANA MARIA RX HERE April 01, 2025 11:0 0am right hip April 12, 2025 8:04 am Room 3 April 12, 2025 8:19 am BL KNEES April 26, 2025 8:08 am BL KNEE May 03, 2025 8:36 am BL KNEE May 10, 2025 8:52 am Reason for Visit Admit Date Orthopedic aftercare January 11, 2025 10 :36am AVN of femur February 08, 2025 10: 15am Rheumatoid arthritis February 08, 2025 10 :15am Other acute postprocedural pain February 8:02am Orthopedic aftercare March 10, 2025 9:02 am Orthopedic aftercare April 12, 2025 8:0 4am Bilateral primary osteoarthritis of knee April 26, 2025 8:08am Bilateral primary osteoarthritis of knee May 03, 2025 8:36am Bilateral primary osteoarthritis of knee May 10, 2025 8:52am Family History No Family History Records Found Relationship Condition Age at Onset Recorded Date/T bob mother Cardiac disease Unknown Diabetes mellitus Unknown father Cardiac disease Unknown Summary Purpose Additional Source Comments Source Comments (unrecognize d section and content) In the event this informatio n is protected by the Federal Confidentiality of Alcohol and Drug Abuse Patient Records regulations: The Federal rules restrict any use of the information to criminally investigate or prosecute any alcohol or drug abuse patient.[facility] the event this information is protected by the Federal Confidentiality of Alcohol and Drug Abuse Patient Records regulations: The Federal rules restrict any use of the information to criminally investigate or prosecute any alcohol or drug abuse patient.[facility]In the event this information is protected by the Federal Confidentiality of Alcohol and Drug Abuse Patient Records regulations: The Federal rules restrict any use of the information to criminally investigate or prosecute any alcohol or drug abuse patient.[facility] HospitalIn the event this information is protected by the Federal Confidentiality of Alcohol and Drug Abuse Patient Records regulations: The Federal rules restrict any use of the information to criminally investigate or prosecute any alcohol or drug abuse patient.[facility] HospitalIn the event this information is protected by the Federal Confidentiality of Alcohol and Drug Abuse Patient Records regulations: The Federal rules restrict any use of the information to criminally investigate or prosecute any alcohol or drug abuse patient.[facility] HospitalIn the event this information is protected by the Federal Confidentiality of Alcohol and Drug Abuse Patient Records regulations: The Federal rules restrict any use of the information to criminally investigate or prosecute any alcohol or drug abuse patient.[facility] HospitalIn the event this information is protected by the Federal Confidentiality of Alcohol and Drug Abuse Patient Records regulations: The Federal rules restrict any use of the information to criminally investigate or prosecute any alcohol or drug abuse patient.[facility] HospitalIn the event this information is protected by the Federal Confidentiality of Alcohol and Drug Abuse Patient Records regulations: The Federal rules restrict any use of the information to criminally investigate or prosecute any alcohol or drug abuse patient.[facility] HospitalIn the event this information is protected by the Federal Confidentiality of Alcohol and Drug Abuse Patient Records regulations: The Federal rules restrict any use of the information to criminally investigate or prosecute any alcohol or drug abuse patient.[facility] HospitalIn the event this information is protected by the Federal Confidentiality of Alcohol and Drug Abuse Patient Records regulations: The Federal rules restrict any use of the information to criminally investigate or prosecute any alcohol or drug abuse patient.[facility] HospitalIn the event this information is protected by the Federal Confidentiality of Alcohol and Drug Abuse Patient Records regulations: The Federal rules restrict any use of the information to criminally investigate or prosecute any alcohol or drug abuse patient.[facility] HospitalIn the event this information is protected by the Federal Confidentiality of Alcohol and Drug Abuse Patient Records regulations: The Federal rules restrict any use of the information to criminally investigate or prosecute any alcohol or drug abuse patient.[facility] HospitalIn the event this information is protected by the Federal Confidentiality of Alcohol and Drug Abuse Patient Records regulations: The Federal rules restrict any use of the information to criminally investigate or prosecute any alcohol or drug abuse patient.[facility] HospitalIn the event this information is protected by the Federal Confidentiality of Alcohol and Drug Abuse Patient Records regulations: The Federal rules restrict any use of the information to criminally investigate or prosecute any alcohol or drug abuse patient.[facility] HospitalIn the event this information is protected by the Federal Confidentiality of Alcohol and Drug Abuse Patient Records regulations: The Federal rules restrict any use of the information to criminally investigate or prosecute any alcohol or drug abuse patient.[facility] HospitalIn the event this information is protected by the Federal Confidentiality of Alcohol and Drug Abuse Patient Records regulations: The Federal rules restrict any use of the information to criminally investigate or prosecute any alcohol or drug abuse patient.[facility] HospitalIn the event this information is protected by the Federal Confidentiality of Alcohol and Drug Abuse Patient Records regulations: The Federal rules restrict any use of the information to criminally investigate or prosecute any alcohol or drug abuse patient.[facility] HospitalIn the event this information is protected by the Federal Confidentiality of Alcohol and Drug Abuse Patient Records regulations: The Federal rules restrict any use of the information to criminally investigate or prosecute any alcohol or drug abuse patient.[facility] HospitalIn the event this information is protected by the Federal Confidentiality of Alcohol and Drug Abuse Patient Records regulations: The Federal rules restrict any use of the information to criminally investigate or prosecute any alcohol or drug abuse patient.[facility] HospitalIn the event this information is protected by the Federal Confidentiality of Alcohol and Drug Abuse Patient Records regulations: The Federal rules restrict any use of the information to criminally investigate or prosecute any alcohol or drug abuse patient.[facility] HospitalIn the event this information is protected by the Federal Confidentiality of Alcohol and Drug Abuse Patient Records regulations: The Federal rules restrict any use of the information to criminally investigate or prosecute any alcohol or drug abuse patient.[facility] HospitalIn the event this information is protected by the Federal Confidentiality of Alcohol and Drug Abuse Patient Records regulations: The Federal rules restrict any use of the information to criminally investigate or prosecute any alcohol or drug abuse patient.[facility] HospitalIn the event this information is protected by the Federal Confidentiality of Alcohol and Drug Abuse Patient Records regulations: The Federal rules restrict any use of the information to criminally investigate or prosecute any alcohol or drug abuse patient.[facility] the event this information is protected by the Federal Confidentiality of Alcohol and Drug Abuse Patient Records regulations: The Federal rules restrict any use of the information to criminally investigate or prosecute any alcohol or drug abuse patient.[facility] HospitalIn the event this information is protected by the Federal Confidentiality of Alcohol and Drug Abuse Patient Records regulations: The Federal rules restrict any use of the information to criminally investigate or prosecute any alcohol or drug abuse patient.[facility] HospitalIn the event this information is protected by the Federal Confidentiality of Alcohol and Drug Abuse Patient Records regulations: The Federal rules restrict any use of the information to criminally investigate or prosecute any alcohol or drug abuse patient.[facility] HospitalIn the event this information is protected by the Federal Confidentiality of Alcohol and Drug Abuse Patient Records regulations: The Federal rules restrict any use of the information to criminally investigate or prosecute any alcohol or drug abuse patient.[facility] HospitalIn the event this information is protected by the Federal Confidentiality of Alcohol and Drug Abuse Patient Records regulations: The Federal rules restrict any use of the information to criminally investigate or prosecute any alcohol or drug abuse patient.[facility] HospitalIn the event this information is protected by the Federal Confidentiality of Alcohol and Drug Abuse Patient Records regulations: The Federal rules restrict any use of the information to criminally investigate or prosecute any alcohol or drug abuse patient.[facility] HospitalIn the event this information is protected by the Federal Confidentiality of Alcohol and Drug Abuse Patient Records regulations: The Federal rules restrict any use of the information to criminally investigate or prosecute any alcohol or drug abuse patient.[facility] HospitalIn the event this information is protected by the Federal Confidentiality of Alcohol and Drug Abuse Patient Records regulations: The Federal rules restrict any use of the information to criminally investigate or prosecute any alcohol or drug abuse patient.[facility] HospitalIn the event this information is protected by the Federal Confidentiality of Alcohol and Drug Abuse Patient Records regulations: The Federal rules restrict any use of the information to criminally investigate or prosecute any alcohol or drug abuse patient.[facility] the event this information is protected by the Federal Confidentiality of Alcohol and Drug Abuse Patient Records regulations: The Federal rules restrict any use of the information to criminally investigate or prosecute any alcohol or drug abuse patient.[facility] the event this information is protected by the Federal Confidentiality of Alcohol and Drug Abuse Patient Records regulations: The Federal rules restrict any use of the information to criminally investigate or prosecute any alcohol or drug abuse patient.[facility] the event this information is protected by the Federal Confidentiality of Alcohol and Drug Abuse Patient Records regulations: The Federal rules restrict any use of the information to criminally investigate or prosecute any alcohol or drug abuse patient.[facility] the event this information is protected by the Federal Confidentiality of Alcohol and Drug Abuse Patient Records regulations: The Federal rules restrict any use of the information to criminally investigate or prosecute any alcohol or drug abuse patient.[facility] the event this information is protected by the Federal Confidentiality of Alcohol and Drug Abuse Patient Records regulations: The Federal rules restrict any use of the information to criminally investigate or prosecute any alcohol or drug abuse patient.[facility] the event this information is protected by the Federal Confidentiality of Alcohol and Drug Abuse Patient Records regulations: The Federal rules restrict any use of the information to criminally investigate or prosecute any alcohol or drug abuse patient.[facility] the event this information is protected by the Federal Confidentiality of Alcohol and Drug Abuse Patient Records regulations: The Federal rules restrict any use of the information to criminally investigate or prosecute any alcohol or drug abuse patient.[facility] the event this information is protected by the Federal Confidentiality of Alcohol and Drug Abuse Patient Records regulations: The Federal rules restrict any use of the information to criminally investigate or prosecute any alcohol or drug abuse patient.[facility] the event this information is protected by the Federal Confidentiality of Alcohol and Drug Abuse Patient Records regulations: The Federal rules restrict any use of the information to criminally investigate or prosecute any alcohol or drug abuse patient.[facility] Reason for Visit (unrecogniz ed section and content) Reason Comments Established Patient Bilateral knee injec tions Euflexxa #3 Established Patient Specialty Diagnoses / Procedures Referred By Contac t Referred To Contact ORTHOPAEDIC SURGERY Diagnoses Bilateral primary osteoarthritis of knee Procedures EUFLEXXA INJ PER DOSE EUFLEXXA OR PAYOR PREFERRED Gilda Rutherford PA-C [address] [place] [address] [facility] [address] [place] [address] Referral ID Status Reason Start Date Expiration Date Visits Re quested Visits Authorized [id number] Closed 10/31/2023 04/30/2024 3 3 Reason Comments Medication Problem Reason Onset Date Comments Refill Request 01/15/2022 Reason Comments Colonoscopy order Reason Comments Rectal Bleeding Reason Comments Outpatient Colonoscopy Reason Comments Consult pilonidal cyst Specialty Diagnoses / Procedures Referred By Chris us Referred To Contact General Surgery Diagnoses Pilonidal cyst Procedures CONSULT TO GENERAL SURGERY OFFICE/OUTPATIENT NEW HIGH MDM 60-74 MINUTES Vinicius Gould APRN.DIRECTOR DIGITAL STRATEGY, DNP [address] [place] [address] Referral ID Status Reason Start Date Expiration Date Visits Requested Visits Authorized [id number] Pending Review PCP Requested Referral 02/26/2022 02/23/2023 1 1 Reason Onset Date Comments Refill Request 03/17/2022 Reason Comments Results Reason Comments Physical Reason Comments Post Op Colonoscopy Reason Onset Date Comments Refill Request 07/17/2022 Reason Comments Patient Question Reason Onset Date Comments Refill Request 11/19/2022 Reason Comments 06/04/2022 COLON ASC Reason Comments Refill Request Reason Comments Knee Pain Reason Onset Date Comments Refill Request 04/22/2023 Reason Comments 6 Month Exam Reason Comments Established Patient Injections Referral ID Status Reason Start Date Expiration Date V isits Requested Visits Authorized [id number] Authorized 10/31/2023 04/30/2024 3 3 Reason Comments Established Patient Pain Reason Comments Orders Reason Onset Date Comments Refill Request 05/07/2024 Reason Comments Yearly Exam Fasting for labs Reason Comments Results Reason Comments Medication Question Reason Onset Date Comments Refill Request 06/17/2024 Reason Comments Patient Update Reason Comments Pre-Op Exam Reason Onset Date Comments Refill Request 12/01/2024 Reason Onset Date Comments Refill Request 12/07/2024 Reason Onset Date Comments Refill Request 04/12/2025 Care Teams (unrecognized sec tion and content) Financial Institution Manager Relationship Specialty Start Date End Date Vinh Aguilar MD [address] [place] [address] PCP - General Internal Medicine 08/22/21 Financial Institution Manager Relationship Specialty Start Date End Date Vinh Aguilar MD [address] [place], [place] [id number] PCP - General Internal Medicine 08/22/21 Financial Institution Manager Relationship Specialty Start Date End Date Vinh Aguilar MD [address] [facility] [place] [address] PCP - General Internal Medicine 08/22/21 Financial Institution Manager Relationship Specialty Start Date End Date Vinh Aguilar MD [address] [facility] [place] [address] PCP - General Internal Medicine 08/22/21 Financial Institution Manager Relationship Specialty Start Date End Date Vinh Aguilar MD [address] [facility] [place] [address] PCP - General Internal Medicine 08/22/21 Financial Institution Manager Relationship Specialty Start Date End Date Vinh Aguilar MD [address] [facility] [place] [address] PCP - General Internal Medicine 08/22/21 Financial Institution Manager Relationship Specialty Start Date End Date Vinh Aguilar MD [address] [facility] [place] [address] PCP - General Internal Medicine 08/22/21 Financial Institution Manager Relationship Specialty Start Date End Date Vinh Aguilar MD [address] [facility] [place] [address] PCP - General Internal Medicine 08/22/21 Financial Institution Manager Relationship Specialty Start Date End Date Vinh Aguilar MD [address] [facility] [place] [address] PCP - General Internal Medicine 08/22/21 Financial Institution Manager Relationship Specialty Start Date End Date Vinh Aguilar MD [address] [facility] [place] [address] PCP - General Internal Medicine 08/22/21 Financial Institution Manager Relationship Specialty Start Date End Date Vinh Aguilar MD [address] [facility] [place] [address] PCP - General Internal Medicine 08/22/21 Financial Institution Manager Relationship Specialty Start Date End Date Vinh Aguilar MD [address] [place] [address] PCP - General Internal Medicine 08/22/21 Financial Institution Manager Relationship Specialty Start Date End Date Vinh Aguilar MD [address] [facility] [place] [address] PCP - General Internal Medicine 08/22/21 Financial Institution Manager Relationship Specialty Start Date End Date Vinh Aguilar MD [address] [facility] [place] [address] PCP - General Internal Medicine 08/22/21 Financial Institution Manager Relationship Specialty Start Date End Date Vinh Aguilar MD [address] [facility] [place] [address] PCP - General Internal Medicine 08/22/21 Financial Institution Manager Relationship Specialty Start Date End Date Vinh Aguilar MD [address] [facility] [place] [address] PCP - General Internal Medicine 08/22/21 Financial Institution Manager Relationship Specialty Start Date End Date Vinh Augilar MD [address] [facility] [place] [address] PCP - General Internal Medicine 08/22/21 Financial Institution Manager Relationship Specialty Start Date End Date Vinh Aguilar MD [address] [facility] [place] [address] PCP - General Internal Medicine 08/22/21 Financial Institution Manager Relationship Specialty Start Date End Date Vinh Aguilar MD [address] [facility] [place] [address] PCP - General Internal Medicine 08/22/21 Financial Institution Manager Relationship Specialty Start Date End Date Vinh Aguilar MD [address] [facility], [place] [address] PCP - General Internal Medicine 08/22/21 Financial Institution Manager Relationship Specialty Start Date End Date Vinh Aguilar MD [address] [facility], [place] [address] PCP - General Internal Medicine 08/22/21 Financial Institution Manager Relationship Specialty Start Date End Date Vinh Aguilar MD [address] [facility] [place] [address] PCP - General Internal Medicine 08/22/21 Team Status: Active Member Role Status Dates Dr. Celia Robbins MD Family Provider Active Dr. Vinh Aguilar MD Primary Care Provider Active Team Status: Active Member Role Status Dates WALDEMAR Christopher Referring Provider, Other Provide r Active Dr. Vinh Aguilar MD Primary Care Provider Active Kasey Rick , ETCHER ENAMELING-C Attending Provider Active Team Status: Inactive Member Role Status Dates WALDEMAR Christopher Attending Provider, Referring Pro vider Active Dr. Vinh Aguilar MD Primary Care Provider Active Financial Institution Manager Relationship Specialty Start Date End Date Vinh Aguilar MD [address] [facility], [place] [address] PCP - General Internal Medicine 08/22/21 Financial Institution Manager Relationship Specialty Start Date End Date Vinh Aguilar MD [address] [facility], [place] [address] PCP - General Internal Medicine 08/22/21 Financial Institution Manager Relationship Specialty Start Date End Date Vinh Aguilar MD [address] [place] [address] PCP - General Internal Medicine 08/22/21 Financial Institution Manager Relationship Specialty Start Date End Date Vinh Aguilar MD [address] [place] [address] PCP - General Internal Medicine 08/22/21 Financial Institution Manager Relationship Specialty Start Date End Date Vinh Aguilar MD [address] [place] [address] PCP - General Internal Medicine 08/22/21 Financial Institution Manager Relationship Specialty Start Date End Date Celia Robbins MD [address] [place] [address] PCP - General Internal Medicine 06/21/15 08/21/21 Financial Institution Manager Relationship Specialty Start Date End Date Vinh Aguilar MD [address] [place] [address] PCP - General Internal Medicine 08/22/21 Noemi Beltran, KOSHER SEALER.DIRECTOR DIGITAL STRATEGY [address] [place] [address] [employer] Internal Medicine 09/21/24 Financial Institution Manager Relationship Specialty Start Date End Date Vinh Aguilar MD [address] [place] [address] PCP - General Internal Medicine 08/22/21 Noemi Beltran, KOSHER SEALER.DIRECTOR DIGITAL STRATEGY [address] [facility] [place] [address] Plastic Maker Internal Medicine 09/21/24 Financial Institution Manager Relationship Specialty Start Date End Date Vinh Aguilar MD [address] [place], [place] [id number] PCP - General Internal Medicine 08/22/21 Noemi Beltran, KOSHER SEALER.DIRECTOR DIGITAL STRATEGY [address] [place] [address] [facility] Internal Medicine 09/21/24 Financial Institution Manager Relationship Specialty Start Date End Date Vinh Aguilar MD [address] [place], [place] [id number] PCP - General Internal Medicine 08/22/21 Noemi Beltran, KOSHER SEALER.DIRECTOR DIGITAL STRATEGY [address] [place] [address] Plastic Maker Internal Medicine 09/21/24 Team Status: Active Member Role Status Dates Dr. Vinh Aguilar MD Primary Care Provider Active Team Status: Inactive Member Role Status Dates Dr. Vinh Aguilar MD Primary Care Provider Active Start: September 15, 2024 End: September 15, 2024 Dr. Mari Prescott MD Attending Provider Active Start: September 15, 2024 End: September 15, 2024 Dr. Mari Prescott MD Referring Provider Active Start: September 15, 2024 End: September 15, 2024 Team Status: Inactive Member Role Status Dates Dr. Vinh Aguilar MD Primary Care Provider Active Start: November 04, 2024 End: November 04, 2024 Dr. Vinh Aguilar MD Referring Provider Active Start: November 04, 2024 End: November 04, 2024 Dr. Too Latham DO Attending Provider Active Start: November 04, 2024 End: November 04, 2024 Team Status: Inactive Member Role Status Dates Dr. Vinh Aguilar MD Primary Care Provider Active Start: November 11, 2024 End: November 11, 2024 Dr. Mari Prescott MD Attending Provider Active Start: November 11, 2024 End: November 11, 2024 Dr. Mari Prescott MD Referring Provider Active Start: November 11, 2024 End: November 11, 2024 Team Status: Inactive Member Role Status Dates Dr. Vinh Aguilar MD Primary Care Provider Active Start: December 11, 2024 End: December 11, 2024 Dr. Too Latham DO Attending Provider Active Start: December 11, 2024 End: December 11, 2024 Dr. Too Latham DO Referring Provider Active Start: December 11, 2024 End: December 11, 2024 Team Status: Inactive Member Role Status Dates Dr. Vinh Aguilar MD Primary Care Provider Active Start: December 16, 2024 End: December 16, 2024 Dr. Vinh Aguilar MD Referring Provider Active Start: December 16, 2024 End: December 16, 2024 Dr. Too Latham DO Attending Provider Active Start: December 16, 2024 End: December 16, 2024 Team Status: Inactive Member Role Status Dates Dr. Vinh Aguilar MD Primary Care Provider Active Start: December 29, 2024 End: December 29, 2024 Dr. Too Latham DO Attending Provider Active Start: December 29, 2024 End: December 29, 2024 Dr. Too Latham DO Referring Provider Active Start: December 29, 2024 End: December 29, 2024 Team Status: Active Member Role Status Dates Dr. Vinh Aguilar MD Primary Care Provider Active Start: December 29, 2024 Dr. Too Latham DO Attending Provider Active Start: December 29, 2024 Dr. Too Latham DO Referring Provider Active Start: December 29, 2024 Dr. Too Latham DO Other Provider Active St art: December 29, 2024 Team Status: Inactive Member Role Status Dates Dr. Vinh Aguilar MD Primary Care Provider Active Start: January 11, 2025 End: January 11, 2025 Dr. Vinh Aguilar MD Referring Provider Active Start: January 11, 2025 End: January 11, 2025 Dr. Too Latham DO Attending Provider Active Start: January 11, 2025 End: January 11, 2025 Team Status: Active Member Role Status Dates Dr. Vinh Aguilar MD Primary Care Provider Active Start: February 02, 2025 Dr. Too Latham DO Attending Provider Active Start: February 02, 2025 Dr. Too Latham DO Referring Provider Active Start: February 02, 2025 Team Status: Inactive Member Role Status Dates Dr. Vinh Aguilar MD Primary Care Provider Active Start: February 08, 2025 End: February 08, 2025 Dr. Vinh Aguilar MD Referring Provider Active Start: February 08, 2025 End: February 08, 2025 Dr. Too Latham DO Attending Provider Active Start: February 08, 2025 End: February 08, 2025 Team Status: Inactive Member Role Status Dates Dr. Vinh Aguilar MD Primary Care Provider Active Start: February 08, 2025 End: February 08, 2025 Dr. Doroteo Villanueva MD Attending Provider Active S tart: February 08, 2025 End: February 08, 2025 Team Status: Inactive Member Role Status Dates Dr. Vinh Aguilar MD Primary Care Provider Active Start: February 09, 2025 End: February 09, 2025 Dr. Mari Prescott MD Attending Provider Active Start: February 09, 2025 End: February 09, 2025 Dr. Mari Prescott MD Referring Provider Active Start: February 09, 2025 End: February 09, 2025 Team Status: Active Member Role Status Dates Dr. Vinh Aguilar MD Primary Care Provider Active Start: February 11, 2025 Dr. Too Latham DO Attending Provider Active Start: February 11, 2025 Dr. Too Latham DO Referring Provider Active Start: February 11, 2025 Team Status: Inactive Member Role Status Dates Dr. Vinh Aguilar MD Primary Care Provider Active Start: February 11, 2025 End: February 11, 2025 Dr. Too Latham DO Attending Provider Active Start: February 11, 2025 End: February 11, 2025 Dr. Too Latham DO Referring Provider Active Start: February 11, 2025 End: February 11, 2025 Team Status: Inactive Member Role Status Dates Dr. Vinh Aguilar MD Primary Care Provider Active Start: February 23, 2025 End: February 23, 2025 Dr. Too Latham DO Attending Provider Active Start: February 23, 2025 End: February 23, 2025 Dr. Too Latham DO Referring Provider Active Start: February 23, 2025 End: February 23, 2025 Team Status: Active Member Role Status Dates Dr. Vinh Aguilar MD Primary Care Provider Active Start: February 23, 2025 Dr. Too Latham DO Attending Provider Active Start: February 23, 2025 Dr. Too Latham DO Referring Provider Active Start: February 23, 2025 Dr. Too Latham DO Other Provider Active St art: February 23, 2025 Team Status: Inactive Member Role Status Dates Dr. Vinh Aguilar MD Primary Care Provider Active Start: February 02, 2025 End: February 02, 2025 Dr. Too Latham DO Attending Provider Active Start: February 02, 2025 End: February 02, 2025 Dr. Too Latham DO Referring Provider Active Start: February 02, 2025 End: February 02, 2025 Team Status: Active Member Role Status Dates Dr. Vinh Aguilar MD Primary Care Provider Active Start: March 09, 2025 Dr. Too Lahtam DO Attending Provider Active Start: March 09, 2025 Dr. Too Latham DO Referring Provider Active Start: March 09, 2025 Team Status: Inactive Member Role Status Dates Dr. Vinh Aguilar MD Primary Care Provider Active Start: March 10, 2025 End: March 10, 2025 Dr. Vinh Aguilar MD Referring Provider Active Start: March 10, 2025 End: March 10, 2025 Dr. Too Latham DO Attending Provider Active Start: March 10, 2025 End: March 10, 2025 Team Status: Inactive Member Role Status Dates Dr. Vinh Aguilar MD Primary Care Provider Active Start: April 01, 2025 End: April 01, 2025 Dr. Too Latham DO Attending Provider Active Start: April 01, 2025 End: April 01, 2025 Dr. Too Latham DO Referring Provider Active Start: April 01, 2025 End: April 01, 2025 Team Status: Active Member Role Status Dates Dr. Vinh Aguilar MD Primary Care Provider Active Start: April 05, 2025 Dr. Mari Prescott MD Attending Provider Active Start: April 05, 2025 Dr. Mari Prescott MD Referring Provider Active Start: April 05, 2025 Team Status: Active Member Role/Relationship Status Dates Dr. Vinh Aguilar MD Primary Care Provider Active Team Status: Inactive Member Role/Relationship Status Dates Dr. Vinh Aguilar MD Primary Care Provider Active Start: December 11, 2024 End: December 11, 2024 Dr. Too Latham DO Attending Provider Active Start: December 11, 2024 End: December 11, 2024 Dr. Too Latham DO Referring Provider Active Start: December 11, 2024 End: December 11, 2024 Team Status: Inactive Member Role/Relationship Status Dates Dr. Vinh Aguilar MD Primary Care Provider Active Start: December 16, 2024 End: December 16, 2024 Dr. Vinh Aguilar MD Referring Provider Active Start: December 16, 2024 End: December 16, 2024 Dr. Too Latham DO Attending Provider Active Start: December 16, 2024 End: December 16, 2024 Team Status: Inactive Member Role/Relationship Status Dates Dr. Vinh Aguilar MD Primary Care Provider Active Start: December 29, 2024 End: December 29, 2024 Dr. Too Latham DO Attending Provider Active Start: December 29, 2024 End: December 29, 2024 Dr. Too Latham DO Referring Provider Active Start: December 29, 2024 End: December 29, 2024 Team Status: Active Member Role/Relationship Status Dates Dr. Vinh Aguilar MD Primary Care Provider Active Start: December 29, 2024 Dr. Too Latham DO Attending Provider Active Start: December 29, 2024 Dr. Too Latham DO Referring Provider Active Start: December 29, 2024 Dr. Too Latham DO Other Provider Active St art: December 29, 2024 Team Status: Inactive Member Role/Relationship Status Dates Dr. Vinh Aguilar MD Primary Care Provider Active Start: January 11, 2025 End: January 11, 2025 Dr. Vinh Aguilar MD Referring Provider Active Start: January 11, 2025 End: January 11, 2025 Dr. Too Latham DO Attending Provider Active Start: January 11, 2025 End: January 11, 2025 Team Status: Inactive Member Role/Relationship Status Dates Dr. Vinh Aguilar MD Primary Care Provider Active Start: February 02, 2025 End: February 02, 2025 Dr. Too Latham DO Attending Provider Active Start: February 02, 2025 End: February 02, 2025 Dr. Too Latham DO Referring Provider Active Start: February 02, 2025 End: February 02, 2025 Team Status: Inactive Member Role/Relationship Status Dates Dr. Vinh Aguilar MD Primary Care Provider Active Start: February 08, 2025 End: February 08, 2025 Dr. Vinh Aguilar MD Referring Provider Active Start: February 08, 2025 End: February 08, 2025 Dr. Too Latham DO Attending Provider Active Start: February 08, 2025 End: February 08, 2025 Team Status: Inactive Member Role/Relationship Status Dates Dr. Vinh Aguilar MD Primary Care Provider Active Start: February 08, 2025 End: February 08, 2025 Dr. Doroteo Villanueva MD Attending Provider Active S tart: February 08, 2025 End: February 08, 2025 Team Status: Inactive Member Role/Relationship Status Dates Dr. Vinh Aguilar MD Primary Care Provider Active Start: February 09, 2025 End: February 09, 2025 Dr. Mari Prescott MD Attending Provider Active Start: February 09, 2025 End: February 09, 2025 Dr. Mari Prescott MD Referring Provider Active Start: February 09, 2025 End: February 09, 2025 Team Status: Inactive Member Role/Relationship Status Dates Dr. Vinh Aguilar MD Primary Care Provider Active Start: February 11, 2025 End: February 11, 2025 Dr. Too Latham DO Attending Provider Active Start: February 11, 2025 End: February 11, 2025 Dr. Too Latham DO Referring Provider Active Start: February 11, 2025 End: February 11, 2025 Team Status: Inactive Member Role/Relationship Status Dates Dr. Vinh Aguilar MD Primary Care Provider Active Start: February 23, 2025 End: February 23, 2025 Dr. Too Latham DO Attending Provider Active Start: February 23, 2025 End: February 23, 2025 Dr. Too Latham DO Referring Provider Active Start: February 23, 2025 End: February 23, 2025 Team Status: Active Member Role/Relationship Status Dates Dr. Vinh Aguilar MD Primary Care Provider Active Start: February 23, 2025 Dr. Too Latham DO Attending Provider Active Start: February 23, 2025 Dr. Too Latham DO Referring Provider Active Start: February 23, 2025 Dr. Too Latham DO Other Provider Active St art: February 23, 2025 Team Status: Inactive Member Role/Relationship Status Dates Dr. Vinh Aguilar MD Primary Care Provider Active Start: March 10, 2025 End: March 10, 2025 Dr. Vinh Aguilar MD Referring Provider Active Start: March 10, 2025 End: March 10, 2025 Dr. Too Latham DO Attending Provider Active Start: March 10, 2025 End: March 10, 2025 Team Status: Inactive Member Role/Relationship Status Dates Dr. Vinh Aguilar MD Primary Care Provider Active Start: April 01, 2025 End: April 01, 2025 Dr. Too Latham DO Attending Provider Active Start: April 01, 2025 End: April 01, 2025 Dr. Too Latham DO Referring Provider Active Start: April 01, 2025 End: April 01, 2025 Team Status: Inactive Member Role/Relationship Status Dates Dr. Vinh Aguilar MD Primary Care Provider Active Start: April 05, 2025 End: April 05, 2025 Dr. Mari Prescott MD Attending Provider Active Start: April 05, 2025 End: April 05, 2025 Dr. Mari Prescott MD Referring Provider Active Start: April 05, 2025 End: April 05, 2025 Team Status: Inactive Member Role/Relationship Status Dates Dr. Vinh Aguilar MD Primary Care Provider Active Start: December 16, 2024 End: December 16, 2024 Dr. Vinh Aguilar MD Referring Provider Active Start: December 16, 2024 End: December 16, 2024 Dr. Too Latham DO Attending Provider Active Start: December 16, 2024 End: December 16, 2024 Team Status: Inactive Member Role/Relationship Status Dates Dr. Vinh Aguilar MD Primary Care Provider Active Start: December 29, 2024 End: December 29, 2024 Dr. Too Latham DO Attending Provider Active Start: December 29, 2024 End: December 29, 2024 Dr. Too Latham DO Referring Provider Active Start: December 29, 2024 End: December 29, 2024 Team Status: Active Member Role/Relationship Status Dates Dr. Vinh Aguilar MD Primary Care Provider Active Start: December 29, 2024 Dr. Too Latham DO Attending Provider Active Start: December 29, 2024 Dr. Too Latham DO Referring Provider Active Start: December 29, 2024 Dr. Too Latham DO Other Provider Active St art: December 29, 2024 Team Status: Inactive Member Role/Relationship Status Dates Dr. Vinh Aguilar MD Primary Care Provider Active Start: January 11, 2025 End: January 11, 2025 Dr. Vinh Aguilar MD Referring Provider Active Start: January 11, 2025 End: January 11, 2025 Dr. Too Latham DO Attending Provider Active Start: January 11, 2025 End: January 11, 2025 Team Status: Inactive Member Role/Relationship Status Dates Dr. Vinh Aguilar MD Primary Care Provider Active Start: February 02, 2025 End: February 02, 2025 Dr. Too Latham DO Attending Provider Active Start: February 02, 2025 End: February 02, 2025 Dr. Too Latham DO Referring Provider Active Start: February 02, 2025 End: February 02, 2025 Team Status: Inactive Member Role/Relationship Status Dates Dr. Vinh Aguilar MD Primary Care Provider Active Start: February 08, 2025 End: February 08, 2025 Dr. Vinh Aguilar MD Referring Provider Active Start: February 08, 2025 End: February 08, 2025 Dr. Too Latham DO Attending Provider Active Start: February 08, 2025 End: February 08, 2025 Team Status: Inactive Member Role/Relationship Status Dates Dr. Vinh Aguilar MD Primary Care Provider Active Start: February 08, 2025 End: February 08, 2025 Dr. Doroteo Villanueva MD Attending Provider Active S tart: February 08, 2025 End: February 08, 2025 Team Status: Inactive Member Role/Relationship Status Dates Dr. Vinh Aguilar MD Primary Care Provider Active Start: February 09, 2025 End: February 09, 2025 Dr. Mari Prescott MD Attending Provider Active Start: February 09, 2025 End: February 09, 2025 Dr. Mari Prescott MD Referring Provider Active Start: February 09, 2025 End: February 09, 2025 Team Status: Inactive Member Role/Relationship Status Dates Dr. Vinh Aguilar MD Primary Care Provider Active Start: February 11, 2025 End: February 11, 2025 Dr. Too Latham DO Attending Provider Active Start: February 11, 2025 End: February 11, 2025 Dr. Too Latham DO Referring Provider Active Start: February 11, 2025 End: February 11, 2025 Team Status: Inactive Member Role/Relationship Status Dates Dr. Vinh Aguilar MD Primary Care Provider Active Start: February 23, 2025 End: February 23, 2025 Dr. Too Latham DO Attending Provider Active Start: February 23, 2025 End: February 23, 2025 Dr. Too Latham DO Referring Provider Active Start: February 23, 2025 End: February 23, 2025 Team Status: Active Member Role/Relationship Status Dates Dr. Vinh Aguilar MD Primary Care Provider Active Start: February 23, 2025 Dr. Too Latham DO Attending Provider Active Start: February 23, 2025 Dr. Too Latham DO Referring Provider Active Start: February 23, 2025 Dr. Too Latham DO Other Provider Active St art: February 23, 2025 Team Status: Inactive Member Role/Relationship Status Dates Dr. Vinh Aguilar MD Primary Care Provider Active Start: March 10, 2025 End: March 10, 2025 Dr. Vinh Aguilar MD Referring Provider Active Start: March 10, 2025 End: March 10, 2025 Dr. Too Latham DO Attending Provider Active Start: March 10, 2025 End: March 10, 2025 Team Status: Inactive Member Role/Relationship Status Dates Dr. Vinh Aguilar MD Primary Care Provider Active Start: April 01, 2025 End: April 01, 2025 Dr. Too Latham DO Attending Provider Active Start: April 01, 2025 End: April 01, 2025 Dr. Too Latham DO Referring Provider Active Start: April 01, 2025 End: April 01, 2025 Team Status: Inactive Member Role/Relationship Status Dates Dr. Vinh Aguilar MD Primary Care Provider Active Start: April 05, 2025 End: April 05, 2025 Dr. Mari Prescott MD Attending Provider Active Start: April 05, 2025 End: April 05, 2025 Dr. Mari Prescott MD Referring Provider Active Start: April 05, 2025 End: April 05, 2025 Team Status: Active Member Role/Relationship Status Dates Dr. Vinh Aguilar MD Primary Care Provider Active Start: April 12, 2025 Dr. Vinh Aguilar MD Referring Provider Active Start: April 12, 2025 Dr. Too Latham DO Attending Provider Active Start: April 12, 2025 Team Status: Inactive Member Role/Relationship Status Dates Dr. Vinh Aguilar MD Primary Care Provider Active Start: April 12, 2025 End: April 12, 2025 Dr. Doroteo Villanueva MD Attending Provider Active S tart: April 12, 2025 End: April 12, 2025 Team Status: Inactive Member Role/Relationship Status Dates Dr. Vinh Aguilar MD Primary Care Provider Active Start: April 12, 2025 End: April 12, 2025 Dr. Vinh Aguilar MD Referring Provider Active Start: April 12, 2025 End: April 12, 2025 Dr. Too Latham DO Attending Provider Active Start: April 12, 2025 End: April 12, 2025 Financial Institution Manager Relationship Specialty Start Date End Date Vinh Aguilar MD [address] [place] [address] PCP - General Internal Medicine 08/22/21 Noemi Beltran, FRANCISCO JAVIER.DIRECT[employer] [address] [place] [address] Plastic Maker Internal Medicine 09/21/24 Team Status: Inactive Member Role/Relationship Status Dates Dr. iVnh Aguilar MD Primary Care Provider Active Start: December 29, 2024 End: December 29, 2024 Dr. Too Latham DO Attending Provider Active Start: December 29, 2024 End: December 29, 2024 Dr. Too Latham DO Referring Provider Active Start: December 29, 2024 End: December 29, 2024 Team Status: Active Member Role/Relationship Status Dates Dr. Vinh Aguilar MD Primary Care Provider Active Start: December 29, 2024 Dr. Too Latham DO Attending Provider Active Start: December 29, 2024 Dr. Too Latham DO Referring Provider Active Start: December 29, 2024 Dr. Too Latham DO Other Provider Active St art: December 29, 2024 Team Status: Inactive Member Role/Relationship Status Dates Dr. Vinh Aguilar MD Primary Care Provider Active Start: January 11, 2025 End: January 11, 2025 Dr. Vinh Aguilar MD Referring Provider Active Start: January 11, 2025 End: January 11, 2025 Dr. Too Latham DO Attending Provider Active Start: January 11, 2025 End: January 11, 2025 Team Status: Inactive Member Role/Relationship Status Dates Dr. Vinh Aguilar MD Primary Care Provider Active Start: February 02, 2025 End: February 02, 2025 Dr. Too Latham DO Attending Provider Active Start: February 02, 2025 End: February 02, 2025 Dr. Too Latham DO Referring Provider Active Start: February 02, 2025 End: February 02, 2025 Team Status: Inactive Member Role/Relationship Status Dates Dr. Vinh Aguilar MD Primary Care Provider Active Start: February 08, 2025 End: February 08, 2025 Dr. Vinh Aguilar MD Referring Provider Active Start: February 08, 2025 End: February 08, 2025 Dr. Too Latham DO Attending Provider Active Start: February 08, 2025 End: February 08, 2025 Team Status: Inactive Member Role/Relationship Status Dates Dr. Vinh Aguilar MD Primary Care Provider Active Start: February 08, 2025 End: February 08, 2025 Dr. Doroteo Villanueva MD Attending Provider Active S tart: February 08, 2025 End: February 08, 2025 Team Status: Inactive Member Role/Relationship Status Dates Dr. Vinh Aguilar MD Primary Care Provider Active Start: February 09, 2025 End: February 09, 2025 Dr. Mari Prescott MD Attending Provider Active Start: February 09, 2025 End: February 09, 2025 Dr. Mari Prescott MD Referring Provider Active Start: February 09, 2025 End: February 09, 2025 Team Status: Inactive Member Role/Relationship Status Dates Dr. Vinh Aguilar MD Primary Care Provider Active Start: February 11, 2025 End: February 11, 2025 Dr. Too Latham DO Attending Provider Active Start: February 11, 2025 End: February 11, 2025 Dr. Too Latham DO Referring Provider Active Start: February 11, 2025 End: February 11, 2025 Team Status: Inactive Member Role/Relationship Status Dates Dr. Vinh Aguilar MD Primary Care Provider Active Start: February 23, 2025 End: February 23, 2025 Dr. Too Latham DO Attending Provider Active Start: February 23, 2025 End: February 23, 2025 Dr. Too Latham DO Referring Provider Active Start: February 23, 2025 End: February 23, 2025 Team Status: Active Member Role/Relationship Status Dates Dr. Vinh Aguilar MD Primary Care Provider Active Start: February 23, 2025 Dr. Too Latham DO Attending Provider Active Start: February 23, 2025 Dr. Too Latham DO Referring Provider Active Start: February 23, 2025 Dr. Too Latham DO Other Provider Active St art: February 23, 2025 Team Status: Inactive Member Role/Relationship Status Dates Dr. Vinh Aguilar MD Primary Care Provider Active Start: March 10, 2025 End: March 10, 2025 Dr. Vinh Aguilar MD Referring Provider Active Start: March 10, 2025 End: March 10, 2025 Dr. Too Latham DO Attending Provider Active Start: March 10, 2025 End: March 10, 2025 Team Status: Inactive Member Role/Relationship Status Dates Dr. Vinh Aguilar MD Primary Care Provider Active Start: April 01, 2025 End: April 01, 2025 Dr. Too Latham DO Attending Provider Active Start: April 01, 2025 End: April 01, 2025 Dr. Too Latham DO Referring Provider Active Start: April 01, 2025 End: April 01, 2025 Team Status: Inactive Member Role/Relationship Status Dates Dr. Vinh Aguilar MD Primary Care Provider Active Start: April 05, 2025 End: April 05, 2025 Dr. Mari Prescott MD Attending Provider Active Start: April 05, 2025 End: April 05, 2025 Dr. Mari Prescott MD Referring Provider Active Start: April 05, 2025 End: April 05, 2025 Team Status: Inactive Member Role/Relationship Status Dates Dr. Vinh Aguilar MD Primary Care Provider Active Start: April 12, 2025 End: April 12, 2025 Dr. Vinh Aguilar MD Referring Provider Active Start: April 12, 2025 End: April 12, 2025 Dr. Too Latham DO Attending Provider Active Start: April 12, 2025 End: April 12, 2025 Team Status: Inactive Member Role/Relationship Status Dates Dr. Vinh Aguilar MD Primary Care Provider Active Start: April 12, 2025 End: April 12, 2025 Dr. Doroteo Villanueva MD Attending Provider Active S tart: April 12, 2025 End: April 12, 2025 Team Status: Inactive Member Role/Relationship Status Dates Dr. Vinh Aguilar MD Primary Care Provider Active Start: April 26, 2025 End: April 26, 2025 Dr. Vinh Aguilar MD Referring Provider Active Start: April 26, 2025 End: April 26, 2025 Dr. Too Latham DO Attending Provider Active Start: April 26, 2025 End: April 26, 2025 Team Status: Inactive Member Role/Relationship Status Dates Dr. Vinh Aguilar MD Primary Care Provider Active Start: January 11, 2025 End: January 11, 2025 Dr. Vinh Aguilar MD Referring Provider Active Start: January 11, 2025 End: January 11, 2025 Dr. Too Latham DO Attending Provider Active Start: January 11, 2025 End: January 11, 2025 Team Status: Inactive Member Role/Relationship Status Dates Dr. Vinh Aguilar MD Primary Care Provider Active Start: February 02, 2025 End: February 02, 2025 Dr. Too Latham DO Attending Provider Active Start: February 02, 2025 End: February 02, 2025 Dr. Too Latham DO Referring Provider Active Start: February 02, 2025 End: February 02, 2025 Team Status: Inactive Member Role/Relationship Status Dates Dr. Vinh Aguilar MD Primary Care Provider Active Start: February 08, 2025 End: February 08, 2025 Dr. Vinh Aguilar MD Referring Provider Active Start: February 08, 2025 End: February 08, 2025 Dr. Too Latham DO Attending Provider Active Start: February 08, 2025 End: February 08, 2025 Team Status: Inactive Member Role/Relationship Status Dates Dr. Vinh Aguilar MD Primary Care Provider Active Start: February 08, 2025 End: February 08, 2025 Dr. Doroteo Villanueva MD Attending Provider Active S tart: February 08, 2025 End: February 08, 2025 Team Status: Inactive Member Role/Relationship Status Dates Dr. Vinh Aguilar MD Primary Care Provider Active Start: February 09, 2025 End: February 09, 2025 Dr. Mari Prescott MD Attending Provider Active Start: February 09, 2025 End: February 09, 2025 Dr. Mari Prescott MD Referring Provider Active Start: February 09, 2025 End: February 09, 2025 Team Status: Inactive Member Role/Relationship Status Dates Dr. Vinh Aguilar MD Primary Care Provider Active Start: February 11, 2025 End: February 11, 2025 Dr. Too Latham DO Attending Provider Active Start: February 11, 2025 End: February 11, 2025 Dr. Too Latham DO Referring Provider Active Start: February 11, 2025 End: February 11, 2025 Team Status: Inactive Member Role/Relationship Status Dates Dr. Vinh Aguilar MD Primary Care Provider Active Start: February 23, 2025 End: February 23, 2025 Dr. Too Latham DO Attending Provider Active Start: February 23, 2025 End: February 23, 2025 Dr. Too Latham DO Referring Provider Active Start: February 23, 2025 End: February 23, 2025 Team Status: Active Member Role/Relationship Status Dates Dr. Vinh Aguilar MD Primary Care Provider Active Start: February 23, 2025 Dr. Too Latham DO Attending Provider Active Start: February 23, 2025 Dr. Too Latham DO Referring Provider Active Start: February 23, 2025 Dr. Too Latham DO Other Provider Active St art: February 23, 2025 Team Status: Inactive Member Role/Relationship Status Dates Dr. Vinh Aguilar MD Primary Care Provider Active Start: March 10, 2025 End: March 10, 2025 Dr. Vinh Aguilar MD Referring Provider Active Start: March 10, 2025 End: March 10, 2025 Dr. Too Latham DO Attending Provider Active Start: March 10, 2025 End: March 10, 2025 Team Status: Inactive Member Role/Relationship Status Dates Dr. Vinh Aguilar MD Primary Care Provider Active Start: April 01, 2025 End: April 01, 2025 Dr. Too Latham DO Attending Provider Active Start: April 01, 2025 End: April 01, 2025 Dr. Too Latham DO Referring Provider Active Start: April 01, 2025 End: April 01, 2025 Team Status: Inactive Member Role/Relationship Status Dates Dr. Vinh Aguilar MD Primary Care Provider Active Start: April 05, 2025 End: April 05, 2025 Dr. Mari Prescott MD Attending Provider Active Start: April 05, 2025 End: April 05, 2025 Dr. Mari Prescott MD Referring Provider Active Start: April 05, 2025 End: April 05, 2025 Team Status: Inactive Member Role/Relationship Status Dates Dr. Vinh Aguilar MD Primary Care Provider Active Start: April 12, 2025 End: April 12, 2025 Dr. Vinh Aguilar MD Referring Provider Active Start: April 12, 2025 End: April 12, 2025 Dr. Too Latham DO Attending Provider Active Start: April 12, 2025 End: April 12, 2025 Team Status: Inactive Member Role/Relationship Status Dates Dr. Vinh Aguilar MD Primary Care Provider Active Start: April 12, 2025 End: April 12, 2025 Dr. Doroteo Villanueva MD Attending Provider Active S tart: April 12, 2025 End: April 12, 2025 Team Status: Inactive Member Role/Relationship Status Dates Dr. Vinh Aguilar MD Primary Care Provider Active Start: April 26, 2025 End: April 26, 2025 Dr. Vinh Aguilar MD Referring Provider Active Start: April 26, 2025 End: April 26, 2025 Dr. Too Latham DO Attending Provider Active Start: April 26, 2025 End: April 26, 2025 Team Status: Inactive Member Role/Relationship Status Dates Dr. Vinh Aguilar MD Primary Care Provider Active Start: May 03, 2025 End: May 03, 2025 Dr. Vinh Aguilar MD Referring Provider Active Start: May 03, 2025 End: May 03, 2025 Dr. Too Latham DO Attending Provider Active Start: May 03, 2025 End: May 03, 2025 Team Status: Inactive Member Role/Relationship Status Dates Dr. Vinh Aguilar MD Primary Care Provider Active Start: May 10, 2025 End: May 10, 2025 Dr. Vinh Aguilar MD Referring Provider Active Start: May 10, 2025 End: May 10, 2025 Dr. Too Latham DO Attending Provider Active Start: May 10, 2025 End: May 10, 2025 Inactive Administered Medications - up to 3 most recent administrations Administered Medications (un recognized section and content) Medication Order MAR Action Action Date Dose Rate Site sodium hyaluronate 20 mg injection (EUFLEXXA) 20 mg, Injection - FOR ORTHO USE ONLY, ONCE, 1 dose, Starting on Sat11/25/23 at 1545, Until Sat11/25/23 at 1545 Given 11/25/2023 3:45 PM EST 20 mg Knee, Left sodium hyaluronate 20 mg injection (EUFLEXXA) 20 mg, Injection - FOR ORTHO USE ONLY, ONCE, 1 dose, Starting on Sat11/25/23 at 1545, Until Sat11/25/23 at 1545 Given 11/25/2023 3:45 PM EST 20 mg Knee, Right Inactive Administered Medications - up to 3 most recent administrations Medication Order MAR Action Action Date Dose Rate Site sodium hyaluronate 20 mg injection (EUFLEXXA) 20 mg, Injection - FOR ORTHO USE ONLY, ONCE, 1 dose, Starting on Sat12/02/23 at 1541, Until Sat12/02/23 at 1541 Given 12/02/2023 3:41 PM EST 20 mg Knee, Left sodium hyaluronate 20 mg injection (EUFLEXXA) 20 mg, Injection - FOR ORTHO USE ONLY, ONCE, 1 dose, Starting on Sat12/02/23 at 1541, Until Sat12/02/23 at 1541 Given 12/02/2023 3:41 PM EST 20 mg Knee, Right Inactive Administered Medications - up to 3 most recent administrations Medication Order MAR Action Action Date Dose Rate Site betamethasone acetate-betamethasone sodium phosphate 6 mg injection (CELESTONE) 6 mg, Injection - FOR ORTHO USE ONLY, ONCE, 1 dose, Starting on Sat02/03/24 at 0826, Until Sat02/03/24 at 0826 Given 02/03/2024 8:26 AM EDT 6 mg Knee, Left betamethasone acetate-betamethasone sodium phosphate 6 mg injection (CELESTONE) 6 mg, Injection - FOR ORTHO USE ONLY, ONCE, 1 dose, Starting on Sat02/03/24 at 0826, Until Sat02/03/24 at 0826 Given 02/03/2024 8:26 AM EDT 6 mg Knee, Right lidocaine (PF) 10 mg/mL (1 %) 5 mL injection (XYLOCAINE) 5 mL, Injection - FOR ORTHO USE ONLY, ONCE, 1 dose, Starting on Sat02/03/24 at 0826, Until Sat02/03/24 at 0826 Given 02/03/2024 8:26 AM EDT 5 mL Knee, Left lidocaine (PF) 10 mg/mL (1 %) 5 mL injection (XYLOCAINE) 5 mL, Injection - FOR ORTHO USE ONLY, ONCE, 1 dose, Starting on Sat02/03/24 at 0826, Until Sat02/03/24 at 08 Given 02/03/2024 8:26 AM EDT 5 mL Knee, Right Goals (unrecognized section and content) Goals may be documented in a n alternate sectionGoals may be documented in an alternate section (unrecognized sect ion and content) No Status Records FoundNo Status Records Found INFORMATION SOURCE (unrecogn ized section and content) DATE CREATED AUTHOR 05/10/2025 [facility] DATE CREATED AUTHOR AUTHOR'S MARCK ATSHAD 05/23/2025 [facility] FOR RECORDS PERTAINING TO PATIENTS WHO ARE OR HAVE BEEN ENROLLED IN A CHEMICAL DEPENDENCY/SUBSTANCEABUSE PROGRAM, SOME INFORMATION MAY BE OMITTED. This clinical summary was aggregated from multiple sources. Caution should be exercised in using it in the provision of clinical care. This summary normalizes information from multiple sources, and as a consequence, information in this document may materially change the coding, format and clinical context of patient data. In addition, data may be omitted in some cases. CLINICAL DECISIONS SHOULD BE BASED ON THE PRIMARY CLINICAL RECORDS. [employer] provides no warranty or guarantee of the accuracy or completeness of information in this document.
[2025-07-07 18:53] LABS: Hematocrit 43.2 % (40-54); Hemoglobin 15.2 g/dL (13.0-16.5); Immature Granulocytes Count 0.030 X10^3/uL (0.0-0.0); Mean Corp Hgb Conc 35.2 g/dL (32-36); Mean Corpuscular Volume 98.0 fL (80-94); Mean Platelet Vol. 10.7 fl (6.2-12.0); NRBC Flagged by Analyzer 0 % (0-5); Platelet Count 254 K/mm3 (150-450); RBC Distribution Width CV 13.7 % (11.6-14.6); RBC Distribution Width SD 49.0 fl (35.1-43.9); Red Blood Count 4.41 M/mm3 (4.6-6.2); White Blood Count 7.0 K/mm3 (4.4-11.0)
== END | disposition home or self-care (01) ==
LOC: MTLAB 15:56
PROVIDERS: PCP Internal Medicine; Referring Provider Internal Medicine Rheumatology; Visit Provider Internal Medicine Rheumatology
DX: M06.4 Inflammatory polyarthropathy (principal); Z79.899 Other long term (current) drug therapy
CPT/HCPCS: 36415; 80053; 85025

== ENCOUNTER → 2025-09-24 | Outpatient (CLI) | payer BC, SELFPAY ==
--- OUTSIDE RECORDS SUMMARY | 2025-09-24 16:19 | XMS RPT_ITS | CCD ---
Author Organization [facility] Care Team Providers Care Dock Operator Name Role Phone Vinh Aguilar MD Primary Care Provider WALDEMAR Rutherford Referring Provider WALDEMAR Rutherford Other Provider Dr. Vinh Aguilar Primary Care Provider LOWELL Rick Attending Provider Vinh Aguilar MD Primary Care Provider Celia Robbins MD Primary Care Provider Ruby PRESS SUPERVISOR.DIRECTORY ASSISTANCE OPERATOR, Noemi M Unavailable Jeff CHEEK, Dr. Justice [...] Jeff CHEEK, Dr. Justice Primary Care Provider Borruso DO, Dr. Gage Attending Provider Borruso DO, Dr. Gage Referring Provider Jeff CHEEK, Dr. Justice Primary Care Provider Borruso DO, Dr. Gage Attending Provider Jeff CHEEK, Dr. Justice Referring Provider Jeff CHEEK, Dr. Justice Primary Care Provider Borruso DO, Dr. Gage Attending Provider Borruso DO, Dr. Gage Referring Provider Borruso DO, Dr. Gage Other Provider Jeff CHEEK, Dr. Justice Primary Care Physician Borruso DO, Dr. Gage Attending Physician Borruso DO, Dr. Gage Referring Provider Genie CHEEK, Dr. Guerra Attending Physician Genie CHEEK, Dr. Guerra Referring Provider Jeff CHEEK, Dr. Justice Referring Provider Kay CHEEK, Dr. Sadler Attending Physician Vinh Aguilar Referring Unavailable Too Latham Attending Unavailable Vinh Aguilar Primary Care Unavailable Doroteo Villanueva Attending Unavailable Vinh Aguilar Primary Care Unavailable Mari Prescott Attending Unavailable Mari Prescott Referring Unavailable Vinh Aguilar Primary Care Unavailable Too Latham Referring Unavailable Too Latham Attending Unavailable Vinh Aguilar Primary Care Unavailable Vellanki, Mari Attending Unavailable Vellanki, Mari Referring Unavailable Aguilar, Vinh Primary Care Unavailable Borruso, Too Referring Unavailable Borruso, Too Consulting Unavailable Borruso, Too Attending Unavailable Aguilar, Vinh Primary Care Unavailable Borruso, Too Attending Unavailable Borruso, Too Referring Unavailable Borruso, Too Consulting Unavailable Aguilar, Vinh Primary Care Unavailable Aguilar, Vinh Primary Care Unavailable Aguilar, Vinh Referring Unavailable Borruso, Too Attending Unavailable Borruso, Too Referring Unavailable Aguilar, Vinh Primary Care Unavailable Borruso, Too Attending Unavailable Vellanki, Mari Attending Unavailable Vellanki, Mari Referring Unavailable Aguilar, Vinh Primary Care Unavailable Vellanki, Mari Attending Unavailable Vellanki, Mari Referring Unavailable Aguilar, Vinh Primary Care Unavailable Borruso, Too Referring Unavailable Aguilar, Vinh Primary Care Unavailable Borruso, Too Attending Unavailable Borruso, Too Referring Unavailable Aguilar, Vinh Primary Care Unavailable Borruso, Too Attending Unavailable Borruso, Too Referring Unavailable Borruso, Too Attending Unavailable Aguilar, Vinh Primary Care Unavailable Aguilar, Vinh Referring Unavailable Borruso, Too Attending Unavailable Aguilar, Vinh Primary Care Unavailable Borruso, Too Attending Unavailable Aguilar, Vinh Referring Unavailable Aguilar, Vinh Primary Care Unavailable Aguilar, Vinh Referring Unavailable Borruso, Too Attending Unavailable Aguilar, Vinh Primary Care Unavailable Vellanki, Mari Attending Unavailable Vellanki, Mari Referring Unavailable Aguilar, Vinh Primary Care Unavailable Vellanki, Mari Referring Unavailable Vellanki, Mari Attending Unavailable Aguilar, Vinh Primary Care Unavailable Borruso, Too Referring Unavailable Borruso, Too Attending Unavailable Aguilar, Vinh Primary Care Unavailable Aguilar, Vinh Primary Care Unavailable Aguilar, Vinh Referring Unavailable Borruso, Too Attending Unavailable Aguilar, Vinh Primary Care Unavailable Aguilar, Vinh Referring Unavailable Borruso, Too Attending Unavailable Aguilar, Vinh Primary Care Unavailable Aguilar, Vinh Referring Unavailable Borruso, Too Attending Unavailable Borruso, Too Attending Unavailable Aguilar, Vinh Referring Unavailable Aguilar, Vinh Primary Care Unavailable Borruso, Too Attending Unavailable Aguilar, Vinh Primary Care Unavailable Aguilar, Vinh Referring Unavailable Doroteo Villanueva Attending Unavailable Jeff, Vinh Primary Care Unavailable Doroteo Villanueva Attending Unavailable Jeff, Vinh Primary Care Unavailable AGUILAR, NATALIA Primary Care Unavailable AGUILAR, NATALIA Attending Unavailable AGUILAR, NATALIA Primary Care Unavailable AGUILAR, NATALIA Attending Unavailable AGUILAR, NATALIA Primary Care Unavailable AGUILAR, NATALIA Referring Unavailable AGUILAR, NATALIA Primary Care Unavailable Medications Current Medications Medication Drug Class(es) Dates Sig (Normalized) Sig (Original) acetaminophen 500 mg oral tablet (20 sources) Start: 02-23-2025 take 2 tablets by mouth every six hours Start: 02-10-2025 Start: 12-29-2024 End: 02-10-2025 take 2 tablets by mouth every six hours Acetaminophen 500 mg tablet Discontinued 1000 mg PO EVERY 6 HOURS 100 1 December 29, 2024 12:00am February 10, 2025 9:05am Start: 09-20-2017 take 1 tablet by motreza th every six hours as needed acetaminophen [...] by mouth twice daily in the morning Start: 12-29-2024 End: 02-08-2025 take 1 tablet by mouth twice daily in the morning Apixaban (Eliquis) 2.5 mg tablet Discontinued 2.5 mg PO TWICE A DAY 42 0 December 29, 2024 12:00am February 08, 2025 10:52am Begin morning after surgery. cephalexin 500 mg oral capsu le (20 sources) Cephalosporin Antibacterial Start: 02-23-2025 Start: 12-29-2024 End: 01-11-2025 Cephalexin 500 mg capsule Di scontinued 1500 mg PO Q8H 6 0 December 29, 2024 12:00am January 11, 2025 10:52am Take 3 tabs before you go to bed and 3 tabs after 5 AM morning after surgery when you wake up cholecalciferol 0.025 mg ora l tablet (20 sources) Vitamin D Start: 02-10-2025 take 1 tablet by morteza th once daily Start: 07-27-2024 End: 01-11-2025 take 1 capsule [...] take 1 tablet by mouth twice daily Start: 07-27-2024 End: 01-11-2025 take 1 tablet by mouth once daily Folic Acid 1 mg tablet Discontinued 1 mg PO daily July 27, 2024 12:00am January 11, 2025 10:52am gemfibrozil 600 mg oral tablet (20 sources) Peroxisome Proliferator Receptor alpha Agonist Start: 01-08-2018 End: 04-12-2025 take 1 tablet by mouth twice daily before mealtime Comment on above: Take 1 tablet by morteza th twice daily. hydroCHLOROthiazide 25 mg / valsartan 320 mg oral tablet (20 sources) Thiazide Diuretic, Angiotensin 2 Receptor Jadon Start: 07-14-2022 End: 04-12-2025 Start: 11-14-2021 take 1 tablet by morteza [...] (20 sources) Folate Analog Metabolic Inhibitor Start: 02-08-2025 take 8 tablets by mouth every week Start: 11-26-2024 take 8 tablets by mo [facility] every week methotrexate 2.5 [...] 1 tablet by mouth once daily. Active [place] 1-Wmt-Dgy-Fish Oil (Fi sh Oil) 1,200 (144-216) mg capsule (12 sources) Star t: 04- 0 Start: 02-10-2025 [place] 3-Dha-Ep a-Fish Oil (Fish Oil) 1,200 (144-216) mg capsule Active 1 NMA PO DAILY February 10, 2025 12:00am [place]-3 Fatty Acids (FISH OIL) 500 mg cap (20 sources) Start: 04-25-2012 take 1 capsule by mouth once daily [place]-3 Fatty Acids (FISH OIL) 500 mg cap Take 500 mg by mouth once daily. 0 04/25/2012 Active Comment on above: Take 500 mg by mouth once daily. omeprazole 40 mg delayed release oral capsule (20 sources) Proton Pump Inhibitor Start: 05-13-2023 End: 04-12-2025 take 1 capsule by mouth once daily Start: 11-14-2021 End: 03-07-2023 take 1 capsule [...] on above: TAKE 1 CAPSULE BY MO UTH EVERY DAY BEFORE BREAKFAST Take 1 capsule by mo uth once daily. sulfamethoxazole 800 mg / trimethoprim [...] Take 1 tablet by morteza twice daily for 7 days. traMADol hydrochloride 50 mg oral tablet (16 sources) Opioid Agonist Start: 12-11-19 take 1 [...] / oxyCODONE hydrochloride 5 mg oral tablet (15 sources) Opioid Agonist Start: 01-08-2018 End: 07-27-2024 Oxycodone-Acetamino phen 1 TABLET tablet Discontinued 1 {tbl} PO EVERY 6 HOURS NEEDED as needed for Pain 12 3 January 08, 2018 12:00am July 27, 2024 [...] on above: Take 1 capsule by mo [facility] twice daily. chondroitin sulfates 400 mg / glucosamine hydrochloride 500 mg oral capsule (1 source) Start: 06-21-2015 End: 11-29-2021 take 1 capsule by mouth twice daily Qayyaomnzta-Qfglskakp-Ptp C-Mn (GLUCOSAMINE CHONDROITIN MAXSTR) 500-400 mg cap [...] as needed. Take 1 tablet by morteza th two times a day. FOR PAIN etodolac [...] 1 tablet by morteza th twice daily as needed (joint pain). Take [...] Comment on above: Take 1 tablet by [facility] once daily. Fish Oil-Dha-Epa 1 EACH capsule (14 sources) Start: 018 End: 025 take 1 [...] alternative therapy) leucovorin 15 mg oral tablet (14 sources) Folate Analog Start: 07-27-2024 End: 01-11-2025 [...] injection (XYLOCAINE) meloxicam 15 mg oral tablet (16 sources) Nonsteroidal Anti-inflammatory Drug Start: 01-08-2018 End: [...] Comment on above: Take 1 tablet by [place] once daily. niacin 500 mg oral tablet (16 sources) Nicotinic Acid Start: 01-08-2018 End: 07-27-2024 take 1 tablet by mouth once daily Niacin 500 MG tablet Discontinued 500 mg PO DAILY January 08, 2018 12:00am July 27, 2024 8:19am Start: 04-25-2012 End: 11-30-2021 take 1 tablet by mouth twice daily niacin 500 mg tablet Take 1 tablet by mouth twice daily. 04/25/2012 11/30/2021 Discontinued [place]-3 Fatty Acids (FISH OIL) 500 mg Cap (9 sources) Start: 04-25-2012 take 1 capsule by mouth once daily [place]-3 Fatty Acids (FISH OIL) 500 mg Cap Take 1 capsule by mouth once daily. 0 04/25/2012 Active Comment on above: Take 1 capsule by mo [facility] once daily. oxyCODONE hydrochloride 5 mg oral [...] Take 1 tablet by morteza once daily. predniSONE 5 mg oral tablet (17 sources) Start: 11-18-2024 End: 01-11-2025 take 1 [...] Chronic Immunizations and screening for infectious disease (3 sources) Vaccination needed; Translations: [Encounter for immunization] [...] 08-06-2007 08-06-2007 Chronic Other upper respiratory infections (15 sources) Viral upper respiratory tract infection; Translations: [Acute upper respiratory infection, unspecified] 12-14-2019 Episodic Rheumatoid arthritis and related disease (20 sources) Inflammatory polyarthropathy; Translations: [Inflammatory polyarthropathy] Onset: 06-26-2024 12-22-2024 Chronic Skin and subcutaneous tissue infections (1 source) Pilonidal cyst; Translations: [Pilonidal cyst without abscess] Episodic Spondylosis; intervertebral disc disorders; other back problems (1 source) Tenderness of body structure; Translations: [Dorsalgia, unspecified] 05-05-2021 Episodic Unclassified (20 sources) Osteoarthritis of right hip; Translations: [M16.11 - Unilateral primary osteoarthritis, right hip] Unclassified (1 source) Obesity, Class III, BMI 40-49.9 (morbid obesity) ([facility]); Translations: [Obesity, Class III, BMI 40-49.9 (morbid obesity) ([facility])] Onset: 02-07-2018 Past or Other Problems Problem [...] conditions (not mental disorders or infectious disease) (15 sources) Patient encounter status; Translations: [Encounter for screening for malignant neoplasm of colon] Onset: 05-21-2024 Episodic Other skin disorders (15 sources) Eruption; Translations: [Rash and other nonspecific skin eruption] Onset: 05-20-2008 Resolved: 11-29-2021 11-29-2021 Episodic Residual codes; unclassified (20 sources) Family history of cancer of colon; Translations: [Family history of malignant neoplasm of digestive organs] Onset: 06-15-2016 06-15-2016 Episodic Screening and history of mental health and substance abuse codes (2 sources) Encounter for screening for depression; Translations: [Encounter for screening examination for other mental health and behavioral disorders] Onset: 05-21-2025 Episodic Results Test Name Value Interpretation Reference Range Facility [facility] MILES TURNER ([id number]) 1965 [facility] Date Time Provider Department 08/25/25 11:45 AM [place] [facility] During your visit today, we recorded the following information about you: MAI FLORES 08/25/2025 11:41 AM Signed Patient presents for Flu vaccine. Denies any problems at this time. Tolerated injection well. Mai Flores LPN Allergies As of Date: 08/25/2025 (No Known Allergies) Date Reviewed: 05/21/2025 Reviewed by: Lakshmi Paula LPN - Fully Assessed Reason for Visit: Immunizations [194] Cmt: Flu vaccination Primary Visit Diagnosis:Need for influenza vaccination [Z23] Order(s):INFLUENZA VACCINE, PRSV FREE, AGE 6MO-64YR, TRIVALENT (AFLURIA, FLUARIX, FLULAVAL, FLUVIRIN, FLUZONE) [46300NTW] Order #: [id number] Prescriptions as of 08/25/2025 - Valsartan-hydroCHLORO thiazide 320-25 mg per tablet Take 1 tablet by mouth once daily. - omeprazole (PRILOSEC) 40 mg capsule Take 1 capsule by mouth once daily. - etodolac (LODINE) 400 mg tablet Take 1 tablet by mouth two times a day. - gemfibrozil (LOPID) 600 mg tablet Take 1 tablet by mouth two times a day. - methotrexate 2.5 mg tablet take 8 tablets by mouth every week - predniSONE (DELTASONE) 5 mg tablet Take 5 mg by mouth every morning. - traMADol (ULTRAM) 50 mg tablet Take 50 mg by mouth every 8 hours as needed. - mv-min/folic/K1/lycop en/lutein (MEN 50 PLUS MULTIVITAMIN ORAL) Take 1 tablet by mouth once daily. - cholecalciferol, vitamin D3, (VITAMIN D3 ORAL) Take 5,000 Units by mouth once daily. - acetaminophen (TYLENOL) 500 mg tablet Take 1 tablet by mouth every 6 hours as needed for Pain. - [place]-3 Fatty Acids (FISH OIL) 500 mg cap Take 500 mg by mouth once daily. 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/2025 Encounter Status:Closed by MAI FLORES on 08/25/25 Normal [facility] Absolute lymphocyte countOrd ered By: Mari Prescott on 07-07-2025 Lymphocytes Auto (Unsp spec) [#/Vol] 2.27 10*3/uL 0.83-4.51 [facility] Absolute neutrophil countOrd ered By: Marimeron Prescott on 07-07-2025 Neutrophils (Bld) [#/Vol] 3.9 10*3/uL 2.0-7.7 [facility] Anion gap in Serum or Plasma Ordered By: Mari Prescott on 07-07-2025 Anion gap [Moles/Vol] 14 mmol/L 5-15 [facility] Automated lymphocyte count a s percentage of total leukocytesOrdered By: Mari Prescott on 07-07-2025 Lymphocytes/100 WBC Auto (Unsp spec) 32.5 % 19-41 [facility] BUN/creatinine ratioOrdered By: [facility] Genie on 07-07-2025 Urea nitrogen/Creatinine [Mass ratio] 24.2 mg/mg High 10-20 [facility] Basophil percentageOrdered B y: Mari Prescott on 07-07-2025 Basophils/100 WBC (Bld) 0.7 % 0-1 [facility] Bilirubin, totalOrdered By: Mari Prescott on 07-07-2025 Bilirubin [Mass/Vol] 0.39 mg/dL 0.00-1.30 [facility] CBC W/Diff, Automatedon 06-15 Absolute Lymph 2.27 X10 3/uL Normal 0.83-4.51 [facility] Comment on above: Performed By: #### L 500.4050, L100.0100 #### [facility] [address] [place], [place] [address], [address] Absolute Neut 3.9 X10 3/uL Normal 2.0-7.7 [facility] Comment on above: Performed By: #### L 500.4050, L100.0100 #### [facility] [address] [place], [address] Basophils/100 WBC (Bld) 0.7 % Normal 0-1 [facility] Comment on above: Performed By: #### L 500.4050, L100.0100 #### [facility] [address] [place], [address] Eosinophils/100 WBC (Bld) 1.6 % Normal 0-5 [facility] Comment on above: Performed By: #### L 500.4050, L100.0100 #### [facility] [address] [place], [address] Erythrocyte distribution width (RBC) [Ratio] 13.7 % Normal 11.6-14.6 [facility] Comment on above: Performed By: #### L 500.4050, L100.0100 #### [facility] [address] [place], [address] Hematocrit (Bld) [Volume fraction] 43.2 % Normal 40-54 [facility] Comment on above: Performed By: #### L 500.4050, L100.0100 #### [facility] [address] [place], [address] Hemoglobin (Bld) [Mass/Vol] 15.2 g/dL Normal 13.0-16.5 [facility] Comment on above: Performed By: #### L 500.4050, L100.0100 #### [facility] [address] [place], [address] IG% 0.400 Normal 0.0-0.9 [facility] Comment on above: Result Comment: IG% - Immature Granulocytes (promyelocytes, myelocytes and metamyelocytes) > 1% indicates that a LEFT SHIFT is Present. Performed By: #### L 500.4050, L100.0100 #### [facility] [address] [place], [address] Lymphocytes/100 WBC (Bld) 32.5 % Normal 19-41 [facility] Comment on above: Performed By: #### L 500.4050, L100.0100 #### [facility] [address] [place], [address] MCH (RBC) [Entitic mass] 34.5 pg High 27.0-32.0 [facility] Comment on above: Performed By: #### L 500.4050, L100.0100 #### [facility] [address] [place], [address] MCHC (RBC) [Mass/Vol] 35.2 g/dL Normal 32-36 [facility] Comment on above: Performed By: #### L 500.4050, L100.0100 #### [facility] [address] [place], [address] MCV (RBC) [Entitic vol] 98.0 fL High 80-94 [facility] Comment on above: Performed By: #### L 500.4050, L100.0100 #### [facility] [address] [place], [address] Monocytes/100 WBC (Bld) 8.9 % Normal 0-10 [facility] Comment on above: Performed By: #### L 500.4050, L100.0100 #### [facility] [address] [place], [address] Neutrophils/100 WBC (Bld) 55.9 % Normal 47-70 [facility] Comment on above: Performed By: #### L 500.4050, L100.0100 #### [facility] [address] [place], [address] Nucleated RBC (Bld) [#/Vol] 0 10*3/uL Normal 0-5 [facility] Comment on above: Performed By: #### L 500.4050, L100.0100 #### [facility] [address], [address] Platelet mean volume (Bld) [Entitic vol] 10.7 fL Normal 6.2-12.0 [facility] Comment on above: Performed By: #### L 500.4050, L100.0100 #### [facility] [address] [place], [address] Platelets (Bld) [#/Vol] 254 10*3/uL Normal 150-450 [facility] Comment on above: Performed By: #### L 500.4050, L100.0100 #### [facility] [address] [place], [address] RBC (Bld) [#/Vol] 4.41 10*6/uL Low 4.6-6.2 [facility] Comment on above: Performed By: #### L 500.4050, L100.0100 #### [facility] [address] [place], [address] RDW SD 49.0 fl High 35.1-43.9 [facility] Comment on above: Performed By: #### L 500.4050, L100.0100 #### [facility] [address] [place], [address] WBC (Bld) [#/Vol] 7.0 10*3/uL Normal 4.4-11.0 [facility] Comment on above: Performed By: #### L 500.4050, L100.0100 #### [facility] [address] [place], [address] Carbon dioxide, total [Moles /volume] in Central venous bloodOrdered By: Mari Prescott on 07-07-2025 CO2 [Moles/Vol] 20.1 mmol/L Low 21.0-32.0 [facility] Chloride assayOrdered By: Waldemar Prescott on 07-07-2025 Chloride [Moles/Vol] 103 mmol/L 98-108 [facility] Comprehensive Metabolic Prof ilon 07-07-2025 Albumin [Mass/Vol] 4.5 g/dL Normal 3.4-4.8 [facility] Comment on above: Performed By: #### L 500.4050, L100.0100 #### [facility] [address] [place], [address] Albumin/Globulin [Mass ratio] 1.8 {ratio} Normal 0.9-2.4 [facility] Comment on above: Performed By: #### L 500.4050, L100.0100 #### [facility] [address] [place], [address] ALK PHOS 67 U/L Normal 40-129 [facility] Comment on above: Performed By: #### L 500.4050, L100.0100 #### [facility] [address] [place], [address] ALT [Catalytic activity/Vol] 23 U/L Normal <=46 [facility] Comment on above: Performed By: #### L 500.4050, L100.0100 #### [facility] [address] [place], [address] AST [Catalytic activity/Vol] 16 U/L Normal <=37 [facility] Comment on above: Performed By: #### L 500.4050, L100.0100 #### [facility] [address] [place], [address] Bilirubin [Mass/Vol] 0.39 mg/dL Normal 0.00-1.30 [facility] Comment on above: Performed By: #### L 500.4050, L100.0100 #### [facility] [address] [place], [address] BUN/CRE 24.2 RATIO High 10-20 [facility] Comment on above: Performed By: #### L 500.4050, L100.0100 #### [facility] [address] [place], [address] Calcium [Mass/Vol] 9.4 mg/dL Normal 7.6-11.0 [facility] Comment on above: Performed By: #### L 500.4050, L100.0100 #### [facility] [address] [place], [address] Chloride [Moles/Vol] 103 mmol/L Normal 98-108 [facility] Comment on above: Performed By: #### L 500.4050, L100.0100 #### [facility] [address] [place], [address] CO2 [Moles/Vol] 20.1 mmol/L Low 21.0-32.0 [facility] Comment on above: Performed By: #### L 500.4050, L100.0100 #### [facility] [address] [place], [address] Creatinine [Mass/Vol] 0.97 mg/dL Normal 0.70-1.20 [facility] Comment on above: Performed By: #### L 500.4050, L100.0100 #### [facility] [address] [place], [address] GAP 14 Normal 5-15 [facility] Comment on above: Performed By: #### L 500.4050, L100.0100 #### [facility] [address] [place], [address] GFR/1.73 sq M.predicted among non-blacks MDRD (S/P/Bld) [Vol rate/Area] 90 mL/min/{1.73_m2} Normal >60 [facility] Comment on above: Result Comment: mL/m in/1.73m2 CKD-EPI Creatinine Equation (2020) Performed By: #### L 500.4050, L100.0100 #### [facility] [address] [place], [address] Globulin (S) [Mass/Vol] 2.5 g/dL Normal 2.2-4.2 [facility] Comment on above: Performed By: #### L 500.4050, L100.0100 #### [facility] [address] [place], [address] Glucose [Mass/Vol] 89 mg/dL Normal 70-99 [facility] Comment on above: Performed By: #### L 500.4050, L100.0100 #### [facility] [address] [place], [address] Potassium [Moles/Vol] 4.2 mmol/L Normal 3.3-5.1 [facility] Comment on above: Performed By: #### L 500.4050, L100.0100 #### [facility] [address] [place], [address] Sodium [Moles/Vol] 138 mmol/L Normal 133-145 [facility] Comment on above: Performed By: #### L 500.4050, L100.0100 #### [facility] [address] [place], [address] T PROT 7.0 g/dL Normal 5.9-8.4 [facility] Comment on above: Performed By: #### L 500.4050, L100.0100 #### [facility] [address] [place], [address] Urea nitrogen [Mass/Vol] 23 mg/dL High 4-19 [facility] Comment on above: Performed By: #### L 500.4050, L100.0100 #### [facility] [address] [place], [address] Eosinophil percentageOrdered By: Mari Prescott on 07-07-2025 Eosinophils/100 WBC (Bld) 1.6 % 0-5 [facility] Erythrocyte distribution wid th ratioOrdered By: Mari Prescott on 07-07-2025 Erythrocyte distribution width (RBC) [Ratio] 13.7 % 11.6-14.6 [facility] Erythrocyte distribution wid th standard deviationOrdered By: Mari Prescott on 07-07-2025 Erythrocyte distribution width (RBC) [Ratio] 49.0 fl High 35.1-43.9 [facility] Glomerular filtration rate ( GFR) estimation/1.73 sq m using serum, plasma, or whole bOrdered By: Mari Prescott on 07-07-2025 GFR/1.73 sq M.predicted among non-blacks MDRD (S/P/Bld) [Vol rate/Area] 90 mL/min/{1.73_m2} >60 [facility] Comment on above: mL/min/1.73m2 CKD-EP I Creatinine Equation (2020) Hematocrit Auto (Bld) [Volum e fraction]Ordered By: Mari Prescott on 07-07-2025 Hematocrit (Bld) [Volume fraction] 43.2 % 40-54 [facility] Hemoglobin measurementOrdere d By: Mari Prescott on 07-07-2025 Hemoglobin (Bld) [Mass/Vol] 15.2 g/dL 13.0-16.5 [facility] Immature granulocytes/100 WB C Auto (Bld)Ordered By: Mari Presctot on 07-07-2025 Immature granulocytes/100 WBC (Bld) 0.400 % 0.0-0.9 [facility] Comment on above: IG% - Immature Granu locytes (promyelocytes, myelocytes and metamyelocytes) > 1% indicates that a LEFT SHIFT is Present. Laboratory - Chemistry and C hemistry - challengeOrdered By: Mari Prescott on 07-07-2025 AST [Catalytic activity/Vol] 16 U/L <38 [facility] MCV (mean corpuscular volume ) determinationOrdered By: Mari Prescott on 07-07-2025 MCV (RBC) [Entitic vol] 98.0 fL High 80-94 [facility] Mean corpuscular hemoglobin (MCH) determinationOrdered By: Mari Prescott on 07-07-2025 MCH (RBC) [Entitic mass] 34.5 pg High 27.0-32.0 [facility] Mean corpuscular hemoglobin concentration (MCHC) determinationOrdered By: Mari Prescott on 07-07-2025 MCHC (RBC) [Mass/Vol] 35.2 g/dL 32-36 [facility] Mean platelet volume determi nationOrdered By: Mari Prescott on 07-07-2025 Platelet mean volume (Bld) [Entitic vol] 10.7 fL 6.2-12.0 [facility] Monocyte percentageOrdered B y: Mari Prescott on 07-07-2025 Monocytes/100 WBC (Bld) 8.9 % 0-10 [facility] Neutrophil percentageOrdered By: Mari Prescott on 07-07-2025 Neutrophils/100 WBC (Bld) 55.9 % 47-70 [facility] Nucleated red blood cell per centageOrdered By: Mari Prescott on 07-07-2025 Nucleated RBC/100 WBC (Bld) [Ratio] 0 % 0-5 [facility] Platelet countOrdered By: Waldemar Prescott on 07-07-2025 Platelets (Bld) [#/Vol] 254 10*3/uL 150-450 [facility] Potassium measurement (mass/ volume)Ordered By: Mari Prescott on 07-07-2025 Potassium (Unsp spec) [Mass/Vol] 4.2 mmol/L 3.3-5.1 [facility] RBC Auto (Bld) [#/Vol]Ordere d By: Mari Prescott on 07-07-2025 RBC (Bld) [#/Vol] 4.41 10*6/uL Low 4.6-6.2 [facility] Serum creatinine measurement (mass/volume)Ordered By: Mari Prescott on 07-07-2025 Creatinine [Mass/Vol] 0.97 mg/dL 0.70-1.20 [facility] Serum globulin measurementOr dered By: Mari Prescott on 07-07-2025 Globulin (S) [Mass/Vol] 2.5 g/dL 2.2-4.2 [facility] Serum glucose measurement (m ass/volume)Ordered By: Mari Prescott on 07-07-2025 Glucose [Mass/Vol] 89 mg/dL 70-99 [facility] Serum or plasma alanine treviño otransferase (ALT) measurementOrdered By: Mari Prescott on 07-07-2025 ALT [Catalytic activity/Vol] 23 U/L <47 [facility] Serum or plasma albumin sunny urement (mass/volume)Ordered By: Mari Prescott on 07-07-2025 Albumin [Mass/Vol] 4.5 g/dL 3.4-4.8 [facility] Serum or plasma albumin/glob ulin mass ratioOrdered By: Mari Prescott on 07-07-2025 Albumin/Globulin [Mass ratio] 1.8 {ratio} 0.9-2.4 [facility] Serum or plasma alkaline mica sphatase measurementOrdered By: Mari Prescott on 07-07-2025 ALP [Catalytic activity/Vol] 67 U/L 40-129 [facility] Serum or plasma calcium sunny urement (mass/volume)Ordered By: Mari Prescott on 07-07-2025 Calcium [Mass/Vol] 9.4 mg/dL 7.6-11.0 [facility] Serum or plasma urea nitroge n measurement (mass/volume)Ordered By: Mari Prescott on 07-07-2025 Urea nitrogen [Mass/Vol] 23 mg/dL High 4-19 [facility] Sodium levelOrdered By: Elaine Prescott on 07-07-2025 Sodium [Moles/Vol] 138 mmol/L 133-145 [facility] Total proteinOrdered By: Eusebio Prescott on 07-07-2025 Protein [Mass/Vol] 7.0 g/dL 5.9-8.4 [facility] White blood cell (WBC) count Ordered By: Mari Prescott on 07-07-2025 WBC (Bld) [#/Vol] 7.0 10*3/uL 4.4-11.0 [facility] 25(OH)D3 SerPl-mCncon 2024 25-hydroxyvitamin D3 [Mass/Vol] 35.6 ng/mL Normal 31.0-80.0 [facility] Comment on above: Order Comment: Speci men Type: BLOOD SPECIMEN Ordering Facility: [facility] Address: [address] [place] [address] Performed By: #### 1 989-3 #### [facility] CLIA [id number] [address] [place], [place] [address] STATES OF [facility] CNOVon 05-21-2025 CNOV Office Visit (INTMWS ) MILES TURNER ([id number]) 1965 [facility] Date Time Provider Department 05/21/25 8:00 AM [...] Known Allergies Current Outpatient Medications Medication Sig Valsartan-hydroCHLORO thiazide 320-25 mg per tablet Take 1 tablet [...] by mouth every 8 hours as needed. mv-min/folic/K1/lycop en/lutein (MEN 50 PLUS MULTIVITAMIN ORAL) Take 1 tablet by mouth once daily. cholecalciferol, vitamin D3, (VITAMIN D3 ORAL) Take 5,000 Units by mouth once daily. acetaminophen (TYLENOL) 500 mg tablet Take 1 tablet by mouth every 6 hours as needed for Pain. [place]-3 Fatty Acids (FISH OIL) 500 mg cap [...] Neurological: Negative for dizziness, numbness and headaches. Psychiatric/Behaviora l: Negative. Objective BP 126/73 Pulse 69 Resp [...] soft. Tenderness: (more content not included)... Normal [facility] Lipid 1996 panelon 5 Cholesterol [Mass/Vol] 204 mg/dL High <200 [facility] Comment on above: Order Comment: Speci men Type: BLOOD SPECIMEN Ordering Facility: [facility] Address: [address] [place] [address] Result Comment: <200 mg/dL, Desirable 200-239 mg/dL, Borderline high >239 mg/dL, High Performed By: #### 2 4331-1 #### [facility] CLIA [id number] [address] [place] [address] [place] [address] [place] Cholesterol in HDL [Mass/Vol] 38 mg/dL Low >39 [facility] Comment on above: Order Comment: Wendy clark Type: BLOOD SPECIMEN Ordering Facility: [facility] Address: [address] [place] [address] Result Comment: 40-5 9 mg/dL, Acceptable >59 mg/dL, High: Negative risk factor for coronary heart disease <40 mg/dL, Low: Positive risk factor for coronary heart disease Performed By: #### 2 4331-1 #### [facility] CLIA [id number] [address] [place] [address] [place] Cholesterol in LDL [Mass/Vol] 132 mg/dL High <100 [facility] Comment on above: Order Comment: Wendy clark Type: BLOOD SPECIMEN Ordering Facility: [facility] Address: [address] [place] [address] Result Comment: <100 mg/dL, Optimal 100-129 mg/dL, Near optimal/above optimal 130-159 mg/dL, Borderline high 160-189 mg/dL, High >189 mg/dL, Very high Secondary prevention optimal LDL Cholesterol levels are recommended to be <70 mg/dL LDL cholesterol is calculated using the Vasquez-NIH equation. Performed By: #### 2 4331-1 #### [facility] CLIA [id number] [address] [place] [address] [place] Cholesterol in LDL/Cholesterol in HDL [Mass ratio] 3.47 {ratio} High <2.54 [facility] Comment on above: Order Comment: Edwinankush clark Type: BLOOD SPECIMEN Ordering Facility: [facility] Address: [address] [place] [address] Result Comment: Refe rence: 1. National Cholesterol Education Program ATP III Guideline At-A-Glance Quick Desk Reference: National Heart, Lung, and Blood [place]. National Institutes of Health. 2001: NIH Publication No. 01-3305. 2. An International Atherosclerosis Society position paper: global recommendations for the management of dyslipidemia: executive summary, Atherosclerosis. 2014: 232(2):410-413. Performed By: #### 2 4331-1 #### [facility] CLIA [id number] [address] [id number] [place] Cholesterol in VLDL [Mass/Vol] 34 mg/dL High <30 [facility] Comment on above: Order Comment: Speci men Type: BLOOD SPECIMEN Ordering Facility: [facility] Address: [address] [place] [address] Performed By: #### 2 4331-1 #### [facility] CLIA [id number] [address] [place], [place] [id number] [place] Cholesterol non HDL [Mass/Vol] 166 mg/dL High <130 [facility] Comment on above: Order Comment: Speci men Type: BLOOD SPECIMEN Ordering Facility: [facility] Address: [address] [place] [address] Result Comment: <130 mg/dL, Optimal 130-159 mg/dL, Near optimal/above optimal 160-189 mg/dL, Borderline high 190-219 mg/dL, High >219 mg/dL, Very high Secondary prevention optimal non HDL Cholesterol levels are recommended to be <100 mg/dL Performed By: #### 2 4331-1 #### [facility] CLIA [id number] [address] [place] [address] [place] Cholesterol.total/Choles terol in HDL [Mass ratio] 5.37 {ratio} High <5.10 [facility] Comment on above: Order Comment: Speci men Type: BLOOD SPECIMEN Ordering Facility: [facility] Address: [address] [place], [place] [id number] Performed By: #### 2 4331-1 #### [facility] CLIA [id number] [address] [place], [place] [address] [place] FASTING TIME 12 hrs Normal [facility] Comment on above: Order Comment: Speci men Type: BLOOD SPECIMEN Ordering Facility: [facility] Address: [address] [place], [place] [address] Performed By: #### 2 4331-1 #### [facility] CLIA [id number] [address] [place], [place] [id number] [place] Triglyceride [Mass/Vol] 190 mg/dL High <150 [facility] Comment on above: Order Comment: Speci men Type: BLOOD SPECIMEN Ordering Facility: [facility] Address: [address] [place] [address] Result Comment: <150 mg/dL, Normal 150-199 mg/dL, Borderline high 200-499 mg/dL, High >499 mg/dL, Very high Performed By: #### 2 4331-1 #### [facility] CLIA [id number] [address] [place] [address] [place] Orthopedic Visit Reporton Orthopedic Visit Report [facility] [address] [place] [address] OFFICE VISIT Date of Service: 05/10/25 MR#: [id number] Acct: [id number] Name: MILES TURNER Rep #: [id number] : 1965 Provider: Dr. Too jones DO Age/Sex: 59/M Location: [facility] Status: Signed Intake Vital Signs 04/26/25 08:25 [...] tab PO QDAY 07/27/24 05/10/25 Hi story mg-hydrochlorothiazid e 25 mg tablet etodolac 400 mg tablet [...] mcg (1,000 unit) tablet (Vitamin D3) omega 9-rzm-ebs-fish oil 1,200 mg 1 cap PO DAILY [...] redness develop (more content not included)... Normal [facility] Orthopedic Visit Reporton Orthopedic Visit Report [facility] [address] [place] [address] OFFICE VISIT Date of Service: 05/03/25 MR#: [id number] Acct: [id number] Name: MILES TURNER Rep #: [id number] : 1965 Provider: Dr. Too jones, DO Age/Sex: 59/M Location: [facility] Status: Signed Intake Vital Signs 04/26/25 08:25 [...] tab PO QDAY 07/27/24 05/03/25 Hi story mg-hydrochlorothiazid e 25 mg tablet etodolac 400 mg tablet [...] mcg (1,000 unit) tablet (Vitamin D3) omega 1-vrb-jta-fish oil 1,200 mg 1 cap PO DAILY [...] this Buy (more content not included)... Normal [facility] Orthopedic Visit Reporton Orthopedic Visit Report [facility] [address] [place] [address] OFFICE VISIT Date of Service: 04/26/25 MR#: [id number] Acct: [id number] Name: MILES TURNER Rep #: [id number] : 1965 Provider: Dr. Too jones DO Age/Sex: 59/M Location: [facility] Status: Signed Intake Vital Signs 04/12/25 08:27 [...] tab PO QDAY 07/27/24 04/26/25 Hi story mg-hydrochlorothiazid e 25 mg tablet etodolac 400 mg tablet [...] mcg (1,000 unit) tablet (Vitamin D3) omega 8-acy-lqk-fish oil 1,200 mg 1 cap PO DAILY [...] made by me, Dr. Too Latham, DO 04/26/25 0825. Part of today???s visit was documented by [...] extension: 2 (more content not included)... Normal [facility] HIP, UNI W/ Pelvis 2-3 Views on 04-12-2025 HIP, UNI W/ Pelvis 2-3 Views [facility] [address] [place], [place] [id number] HIP, UNI W/ Pelvis 2-3 Views MR#: [id number] Acct: [id number] Name: MILES TURNER Rep #: [id number] : 1965 M 59 From: Riley Fischer PCP: Dr. Vinh Aguilar MD Status: DEP AMB Study: HIP, UNI W/ Pelvis 2-3 Views Date of Exam: Exam# [id number] Ordering Dr: Too Latham DO PROCEDURE: HIP, [...] seen. No complication is noted. Reading Location: [facility] CC: Dr. Too Latham DO; Dr. Vinh Aguilar MD Tipple Tender: Signed Normal [facility] Orthopedic Visit Reporton Orthopedic Visit Report [facility] [address] [place] [address] [address] [place] [address] OFFICE VISIT Date of Service: 04/12/25 MR#: [id number] Acct: [id number] Name: MILES TURNER Rep #: [id number] : 1965 Provider: Dr. Too Borru so, DO Age/Sex: 59/M Location: [facility] Status: Signed Intake Vital Signs 01/11/25 10:47 [...] tab PO QDAY 07/27/24 04/12/25 Hi story mg-hydrochlorothiazid e 25 mg tablet etodolac 400 mg tablet [...] mcg (1,000 unit) tablet (Vitamin D3) omega 9-zba-gne-fish oil 1,200 mg 1 cap PO DAILY [...] 06/01/2024 x-ray pelvis: Advanced bilateral hip arthrosis [id number] with bony erosion large cystic changes of the femoral head and acetabulum Coding Level of Care Code Global Post Op Diagnoses Orthopedic aftercare Z47.89 Assessmen (more content not included)... Normal [facility] Absolute lymphocyte countOrd ered By: Mari Prescott on 04-05-2025 Lymphocytes Auto (Unsp spec) [#/Vol] 1.38 10*3/uL 0.83-4.51 [facility] Absolute neutrophil countOrd ered By: Mari Prescott on 04-05-2025 Neutrophils (Bld) [#/Vol] 2.2 10*3/uL 2.0-7.7 [facility] Anion gap in Serum or Plasma Ordered By: Mari Prescott on 04-05-2025 Anion gap [Moles/Vol] 13 mmol/L 5-15 [facility] Automated lymphocyte count a s percentage of total leukocytesOrdered By: Mari Prescott on 04-05-2025 Lymphocytes/100 WBC Auto (Unsp spec) 33.3 % 19-41 [facility] BUN/creatinine ratioOrdered By: Mari Prescott on 04-05-2025 Urea nitrogen/Creatinine [Mass ratio] 28.3 mg/mg High 10-20 [facility] Basophil percentageOrdered B y: Mari Prescott on 04-05-2025 Basophils/100 WBC (Bld) 1.2 % High 0-1 [facility] Bilirubin, totalOrdered By: Mari Prescott on 04-05-2025 Bilirubin [Mass/Vol] 0.60 mg/dL 0.00-1.30 [facility] CBC W/Diff, Automatedon 03-15 Absolute Lymph 1.38 X10 3/uL Normal 0.83-4.51 [facility] Comment on above: Performed By: #### L 100.0100, L500.4050 #### [facility] [address] [place], [address] Absolute Neut 2.2 X10 3/uL Normal 2.0-7.7 [facility] Comment on above: Performed By: #### L 100.0100, L500.4050 #### [facility] [address] [place], [address] Basophils/100 WBC (Bld) 1.2 % High 0-1 [facility] Comment on above: Performed By: #### L 100.0100, L500.4050 #### [facility] [address] [place], [address] Eosinophils/100 WBC (Bld) 1.4 % Normal 0-5 [facility] Comment on above: Performed By: #### L 100.0100, L500.4050 #### [facility] [address] [place], [address] Erythrocyte distribution width (RBC) [Ratio] 14.4 % Normal 11.6-14.6 [facility] Comment on above: Performed By: #### L 100.0100, L500.4050 #### [facility] [address] [place], [address] Hematocrit (Bld) [Volume fraction] 44.5 % Normal 40-54 [facility] Comment on above: Performed By: #### L 100.0100, L500.4050 #### [facility] [address] [place], [address] Hemoglobin (Bld) [Mass/Vol] 15.1 g/dL Normal 13.0-16.5 [facility] Comment on above: Performed By: #### L 100.0100, L500.4050 #### [facility] [address] [place], [address] IG% 0.200 Normal 0.0-0.9 [facility] Comment on above: Result Comment: IG% - Immature Granulocytes (promyelocytes, myelocytes and metamyelocytes) > 1% indicates that a LEFT SHIFT is Present. Performed By: #### L 100.0100, L500.4050 #### [facility] [address] [place], [address] Lymphocytes/100 WBC (Bld) 33.3 % Normal 19-41 [facility] Comment on above: Performed By: #### L 100.0100, L500.4050 #### [facility] [address] [place], [address] MCH (RBC) [Entitic mass] 32.5 pg High 27.0-32.0 [facility] Comment on above: Performed By: #### L 100.0100, L500.4050 #### [facility] [address] [place], [address] MCHC (RBC) [Mass/Vol] 33.9 g/dL Normal 32-36 [facility] Comment on above: Performed By: #### L 100.0100, L500.4050 #### [facility] [address] [place], [address] MCV (RBC) [Entitic vol] 95.7 fL High 80-94 [facility] Comment on above: Performed By: #### L 100.0100, L500.4050 #### [facility] [address] [place], [address] Monocytes/100 WBC (Bld) 11.1 % High 0-10 [facility] Comment on above: Performed By: #### L 100.0100, L500.4050 #### [facility] [address] [place], [address] Neutrophils/100 WBC (Bld) 52.8 % Normal 47-70 [facility] Comment on above: Performed By: #### L 100.0100, L500.4050 #### [facility] [address] [place], [address] Nucleated RBC (Bld) [#/Vol] 0 10*3/uL Normal 0-5 [facility] Comment on above: Performed By: #### L 100.0100, L500.4050 #### [facility] [address] [place], [address] Platelet mean volume (Bld) [Entitic vol] 10.0 fL Normal 6.2-12.0 [facility] Comment on above: Performed By: #### L 100.0100, L500.4050 #### [facility] [address] [place], [address] Platelets (Bld) [#/Vol] 248 10*3/uL Normal 150-450 [facility] Comment on above: Performed By: #### L 100.0100, L500.4050 #### [facility] [address] [place], [address] RBC (Bld) [#/Vol] 4.65 10*6/uL Normal 4.6-6.2 [facility] Comment on above: Performed By: #### L 100.0100, L500.4050 #### [facility] [address] [place], [address] RDW SD 50.1 fl High 35.1-43.9 [facility] Comment on above: Performed By: #### L 100.0100, L500.4050 #### [facility] [address] [place], [address] WBC (Bld) [#/Vol] 4.2 10*3/uL Low 4.4-11.0 [facility] Comment on above: Performed By: #### L 100.0100, L500.4050 #### [facility] [address] [place], [place], [address] Carbon dioxide, total [Moles /volume] in Central venous bloodOrdered By: Mari Prescott on 04-05-2025 CO2 [Moles/Vol] 20.9 mmol/L Low 21.0-32.0 [facility] Chloride assayOrdered By: Waldemar Prescott on 04-05-2025 Chloride [Moles/Vol] 104 mmol/L 98-108 [facility] Comprehensive Metabolic Prof ilon 04-05-2025 Albumin [Mass/Vol] 4.6 g/dL Normal 3.5-5.0 [facility] Comment on above: Performed By: #### L 501.080 #### [facility] [address] [place], [address] Albumin/Globulin [Mass ratio] 1.8 {ratio} Normal 0.9-2.4 [facility] Comment on above: Performed By: #### L 501.080 #### [facility] [address] [place], [address] ALK PHOS 96 U/L Normal 40-129 [facility] Comment on above: Performed By: #### L 501.080 #### [facility] [address] [place], [address] ALT [Catalytic activity/Vol] 33 U/L Normal <=46 [facility] Comment on above: Performed By: #### L 501.080 #### [facility] [address] [place], [address] AST [Catalytic activity/Vol] 22 U/L Normal <=37 [facility] Comment on above: Performed By: #### L 501.080 #### [facility] [address] [place], [address] Bilirubin [Mass/Vol] 0.60 mg/dL Normal 0.00-1.30 [facility] Comment on above: Performed By: #### L 501.080 #### [facility] [address] [place], [address] BUN/CRE 28.3 RATIO High 10-20 [facility] Comment on above: Performed By: #### L 501.080 #### [facility] [address] [place], [address] Calcium [Mass/Vol] 9.5 mg/dL Normal 7.6-11.0 [facility] Comment on above: Performed By: #### L 501.080 #### [facility] [facility] [address] [place], [address] Chloride [Moles/Vol] 104 mmol/L Normal 98-108 [facility] Comment on above: Performed By: #### L 501.080 #### [facility] [address] [place], [address] CO2 [Moles/Vol] 20.9 mmol/L Low 21.0-32.0 [facility] Comment on above: Performed By: #### L 501.080 #### [facility] [address] [place], [address] Creatinine [Mass/Vol] 0.73 mg/dL Normal 0.70-1.20 [facility] Comment on above: Performed By: #### L 501.080 #### [facility] [address] [place], [address] GAP 13 Normal 5-15 [facility] Comment on above: Performed By: #### L 501.080 #### [facility] [address] [place], [address] GFR/1.73 sq M.predicted among non-blacks MDRD (S/P/Bld) [Vol rate/Area] 105 mL/min/{1.73_m2} Normal >60 [facility] Comment on above: Result Comment: mL/m in/1.73m2 CKD-EPI Creatinine Equation (2020) Performed By: #### L 501.080 #### [facility] [address] [place], [address] Globulin (S) [Mass/Vol] 2.6 g/dL Normal 2.2-4.2 [facility] Comment on above: Performed By: #### L 501.080 #### [facility] [address] [place], [address] Glucose [Mass/Vol] 98 mg/dL Normal 70-99 [facility] Comment on above: Performed By: #### L 501.080 #### [facility] [address] [place], [address] Potassium [Moles/Vol] 4.2 mmol/L Normal 3.3-5.1 [facility] Comment on above: Performed By: #### L 501.080 #### [facility] [address] [place], [address] Sodium [Moles/Vol] 138 mmol/L Normal 133-145 [facility] Comment on above: Performed By: #### L 501.080 #### [facility] [address] [place], [address] T PROT 7.1 g/dL Normal 5.9-8.4 [facility] Comment on above: Performed By: #### L 501.080 #### [facility] [address] [place], [address] Urea nitrogen [Mass/Vol] 21 mg/dL High 4-19 [facility] Comment on above: Performed By: #### L 501.080 #### [facility] [address] [place], [address] Eosinophil percentageOrdered By: Mari Prescott on 04-05-2025 Eosinophils/100 WBC (Bld) 1.4 % 0-5 [facility] Erythrocyte distribution wid th ratioOrdered By: Mari Prescott on 04-05-2025 Erythrocyte distribution width (RBC) [Ratio] 14.4 % 11.6-14.6 [facility] Erythrocyte distribution wid th standard deviationOrdered By: Mari Prescott on 04-05-2025 Erythrocyte distribution width (RBC) [Ratio] 50.1 fl High 35.1-43.9 [facility] Glomerular filtration rate ( GFR) estimation/1.73 sq m using serum, plasma, or whole bOrdered By: Mari Prescott on 04-05-2025 GFR/1.73 sq M.predicted among non-blacks MDRD (S/P/Bld) [Vol rate/Area] 105 mL/min/{1.73_m2} >60 [facility] Comment on above: mL/min/1.73m2 CKD-EP I Creatinine Equation (2020) Hematocrit Auto (Bld) [Volum e fraction]Ordered By: Mari Prescott on 04-05-2025 Hematocrit (Bld) [Volume fraction] 44.5 % 40-54 [facility] Hemoglobin measurementOrdere d By: Mari Prescott on 04-05-2025 Hemoglobin (Bld) [Mass/Vol] 15.1 g/dL 13.0-16.5 [facility] Immature granulocytes/100 WB C Auto (Bld)Ordered By: Mari Prescott 04-05-2025 Immature granulocytes/100 WBC (Bld) 0.200 % 0.0-0.9 [facility] Comment on above: IG% - Immature Granu locytes (promyelocytes, myelocytes and metamyelocytes) > 1% indicates that a LEFT SHIFT is Present. Laboratory - Chemistry and C hemistry - challengeOrdered By: Mari Prescott on 04-05-2025 AST [Catalytic activity/Vol] 22 U/L <38 [facility] MCV (mean corpuscular volume ) determinationOrdered By: Mari Prescott on 04-05-2025 MCV (RBC) [Entitic vol] 95.7 fL High 80-94 [facility] Mean corpuscular hemoglobin (MCH) determinationOrdered By: Mari Prescott on 04-05-2025 MCH (RBC) [Entitic mass] 32.5 pg High 27.0-32.0 [facility] Mean corpuscular hemoglobin concentration (MCHC) determinationOrdered By: Mari Prescott on 04-05-2025 MCHC (RBC) [Mass/Vol] 33.9 g/dL 32-36 [facility] Mean platelet volume determi nationOrdered By: Mari Prescott on 04-05-2025 Platelet mean volume (Bld) [Entitic vol] 10.0 fL 6.2-12.0 [facility] Monocyte percentageOrdered B y: Mari Prescott on 04-05-2025 Monocytes/100 WBC (Bld) 11.1 % High 0-10 [facility] Neutrophil percentageOrdered By: Mari Prescott on 04-05-2025 Neutrophils/100 WBC (Bld) 52.8 % 47-70 [facility] Nucleated red blood cell per centageOrdered By: Mari Prescott on 04-05-2025 Nucleated RBC/100 WBC (Bld) [Ratio] 0 % 0-5 [facility] Platelet countOrdered By: Waldemar Prescott on 04-05-2025 Platelets (Bld) [#/Vol] 248 10*3/uL 150-450 [facility] Potassium measurement (mass/ volume)Ordered By: Mari Prescott on 04-05-2025 Potassium (Unsp spec) [Mass/Vol] 4.2 mmol/L 3.3-5.1 [facility] RBC Auto (Bld) [#/Vol]Ordere d By: Mari Prescott on 04-05-2025 RBC (Bld) [#/Vol] 4.65 10*6/uL 4.6-6.2 [facility] Serum creatinine measurement (mass/volume)Ordered By: Mari Prescott on 04-05-2025 Creatinine [Mass/Vol] 0.73 mg/dL 0.70-1.20 [facility] Serum globulin measurementOr dered By: Mari Prescott on 04-05-2025 Globulin (S) [Mass/Vol] 2.6 g/dL 2.2-4.2 [facility] Serum glucose measurement (m ass/volume)Ordered By: Mari Prescott on 04-05-2025 Glucose [Mass/Vol] 98 mg/dL 70-99 [facility] Serum or plasma alanine treviño otransferase (ALT) measurementOrdered By: Mari Prescott on 04-05-2025 ALT [Catalytic activity/Vol] 33 U/L <47 [facility] Serum or plasma albumin sunny urement (mass/volume)Ordered By: Mari Prescott on 04-05-2025 Albumin [Mass/Vol] 4.6 g/dL 3.5-5.0 [facility] Serum or plasma albumin/glob ulin mass ratioOrdered By: Mari Prescott on 04-05-2025 Albumin/Globulin [Mass ratio] 1.8 {ratio} 0.9-2.4 [facility] Serum or plasma alkaline mica sphatase measurementOrdered By: Mari Prescott on 04-05-2025 ALP [Catalytic activity/Vol] 96 U/L 40-129 [facility] Serum or plasma calcium sunny urement (mass/volume)Ordered By: Mari Prescott on 04-05-2025 Calcium [Mass/Vol] 9.5 mg/dL 7.6-11.0 [facility] Serum or plasma urea nitroge n measurement (mass/volume)Ordered By: Mari Prescott on 04-05-2025 Urea nitrogen [Mass/Vol] 21 mg/dL High - [facility] Sodium levelOrdered By: Elaine Prescott on 04-05-2025 Sodium [Moles/Vol] 138 mmol/L 133-145 [facility] Total proteinOrdered By: Eusebio Prescott on 04-05-2025 Protein [Mass/Vol] 7.1 g/dL 5.9-8.4 [facility] White blood cell (WBC) count Ordered By: Mari Prescott on 04-05-2025 WBC (Bld) [#/Vol] 4.2 10*3/uL Low 4.4-11.0 [facility] PT D/C Summary (1)on 025 PT D/C Summary (1) [facility] Physical Therapy [address] [place] [address] / REHABILITATION SERVICES DISCHARGE SUMMARY MR#: [id number] Acct: [id number] Name: MILES TURNER Rep #: [id number] : 1965 59 From: Simone Mayers PT, Cert. MD Us, OCS Referring Dr.: Dr. Too Latham DO Status: R EG RCR Insurance: [employer] SELF PAY INSURANCE Discharge Summary D/C summary: [...] please feel free to call me at [phone]. Thank you for the referral of this patient. Sincerely, Simone Androsik, PT, Cert MDT, OCS Balance/Gait/Function al tests Balance/Special Test Scores Lower Extremity Functional Score: 61 TUG Test Time Seconds: 23.25 Tug Test: 20-30sec.=variable mobility WOMAC Total Score: 8 WOMAC Percentage: 91.6700 Improvement % Improvement: 90 04/01/25 1201 CC: Dr. Too Latham DO; Dr. Vinh Aguilar MD JLA Signed Normal [facility] Orthopedic Visit Reporton Orthopedic Visit Report [facility] [place] [address] OFFICE VISIT Date of Service: 03/10/25 MR#: [id number] Acct: [id number] Name: MILES TURNER Rep #: [id number] : 1965 Provider: Dr. Too jones DO Age/Sex: 59/M Location: [facility].IGOR Status: Signed Intake Vital Signs 01/11/25 10:47 [...] tab PO QDAY 07/27/24 03/10/25 Hi story mg-hydrochlorothiazid e 25 mg tablet etodolac 400 mg tablet 400 mg PO BID 02/08/25 03/10/25 Hi story Held on 02/23/25. Instructions: May resume after completion of blood thinner if needed folic acid 1 mg tablet 1 mg PO BID 02/08/25 03/10/25 Hist ory methotrexate sodium 15 mg tablet 25 mg PO QWEEK 04/28/25 05/28/25 H istory Held on 02/23/25. Instructions: Resume on 03/16/25. acetaminophen 650 mg 1,300 mg PO Q12H PRN pain 02/10/25 03/10/25 History tablet,extended release (8 Hour Pain Reliever) Held on 02/23/25. Instructions: Duplicate cholecalciferol (vitamin D3) 25 25 mcg PO DAILY 02/10/25 03/10/25 History mcg (1,000 unit) tablet (Vitamin D3) omega 8-dqs-ugo-fish oil 1,200 mg 1 cap PO DAILY [...] 06/01/2024 x-ray pelvis: Advanced bilateral hip arthrosis [id number] with bony erosion large cystic changes of the femoral head and acetabulum Coding Level of Care Code Global Post Op Diagnoses Orthopedic aftercare Z47.89 Assessment and Plan Assessment and Plan (1) Orthopedic aftercare: Status: Acute Plan The incision is lo (more content not included)... Normal [facility] Inital Evaluation (1) - PTon 03-09-2025 Inital Evaluation (1) - PT [facility] Physical Therapy [facility] [address] [place] [address] / REHABILITATION SERVICES INITIAL EVALUATION MR#: [id number] Acct: [id number] Name: MILES TURNER Rep #: [id number] : 1965 59 From: Simone Mayers PT, Cert. T, OCS Referring Dr.: Dr. Too Latham, DO Status: R EG RCR Insurance: [facility] SELF PAY INSURANCE Patient's Visit Information Visit Information Visit Information: MILES TURNER is a 59 year old M referred to Physical Therapy by Dr. Too Latham DO with a diagnosis of UNILATERAL PRIMARY OSTEOARTHRITIS ,LEFT HIP. Date of Evaluation: 03/04/25 Physical Therapist: Simone Mayers, PT, Cert MDT, OCS Visit Plan Frequency: 2x /Week Duration: 6 Weeks Plan: s/p RIGHT ANA MARIA WITH POSTERIOR LATERAL HIP PRECAUTIONS 02/23/25 PT INTERVENTIONS ROM HIP ,STRENGTHENING EX'S QUADS/HAMS/HIP ,FUNCTIONAL STRENGTHENING , AND GAIT/BALANCE TRAINING Subjective Subjective: This 59 y/o male presents to physical therapy for right ANA MARIA on 02/23/[address]atham at [facility]. Patient was d/c DOS. Patient did posterior lateral with hip precautions.Patient was d/c with FWW with WBAT RLE. Patient recently underwent s/p left ANA MARIA December 24. Denies paresthesia/tingling . Min pain. Patient sleeping in bed. Patient denies paresthesia/tingling. Bowel/bladder -. Patient sleeping okay. Patient stopped [...] ,ankle 5/5 STAIRS: one step at time [facility] Balance/Special Test Scores Lower Extremity Functional [...] to perform ADL's, To increase tolerance to activity/condition/po sition, To improve ability of physical actions for home/community/work/l eisure, To improve gait and locomotor functions, To [...] to perform ADL's, To increase tolerance to activity/condition/po sition, To improve ability of physical actions for home/community/work/l eisure, To improve gait and locomotor functions, To improve health of tissue, To decrease soft tissue restriction, To increase flexibility/ROM, To improve balance and To improve tolerance to ADL's Text: Thank you for the opportunity to evaluate your patient. For Medicare and Medicare HMO plans, please review the plan of care and approve it. It will need to be FAXED BACK to us at [phone] for Medicare purposes. For Medicare only, by signing this I certify the plan of care. Please let me know if there are questions or concerns regarding this plan of care. Phy (more content not included)... Normal [facility] Inital Evaluation (1) - PTon 03-04-2025 Inital Evaluation (1) - PT [facility] Physical Therapy [facility] [address] [place] [address] / REHABILITATION SERVICES INITIAL EVALUATION MR#: [id number] Acct: [id number] Name: MILES TURNER Rep #: [id number] : 1965 59 From: Simone Mayers PT, Aura. MD Us, OCS Referring Dr.: Dr. Too Latham DO Status: R EG RCR Insurance: [employer] SELF PAY INSURANCE Patient's Visit Information Visit [...] on 02/23/[address]atham at [facility]. Patient was d/c DOS. Patient did posterior lateral with hip precautions.Patient was d/c with FWW with WBAT RLE. Patient recently underwent s/p left ANA MARIA December 24. Denies paresthesia/tingling . Min pain. Patient sleeping in bed. Patient denies paresthesia/tingling. Bowel/bladder -. Patient sleeping okay. Patient stopped [...] ,ankle 5/5 STAIRS: one step at time [facility] Balance/Special Test Scores Lower Extremity Functional Score: [...] to perform ADL's, To increase tolerance to activity/condition/po sition, To improve ability of physical actions for home/community/work/l eisure, To improve gait and locomotor functions, To [...] to perform ADL's, To increase tolerance to activity/condition/po sition, To improve ability of physical actions for home/community/work/l eisure, To improve gait and locomotor functions, To improve health of tissue, To decrease soft tissue restriction, To increase flexibility/ROM, To improve balance and To improve tolerance to ADL's Text: Thank you for the opportunity to evaluate your patient. For Medicare and Medicare HMO plans, please review the plan of care and approve it. It will need to be FAXED BACK to us at [phone] for Medicare purposes. For Medicare only, by signing this I certify the plan of care. Please let me know if there are questions or concerns regarding this plan of care. Physician Signature: Date : 03/05/25 2001 CC: Dr. Byrd (more content not included)... Normal [facility] Decalcification bone/plaqueo n 02-23-2025 Decalcification bone/plaque -------- Patient Age/Sex Location Account Attending Physician -------- MILES TURNER 59/M [facility] [id number] Dr. Too Latham, -------- Specimen: Received: 02/23/25 Status: BECKA Reynolds Num: [id number] Spec Type: FEM HEAD Subm Dr: Dr. Too Latham, DO HEADER OPERATION: Right total hip replacement robotic arm assist PRE-OP DIAGNOSIS: AVN of femur, rheumatoid arthritis TISSUE SUBMITTED: A- Femur head, bone and soft tissue, right hip -------- MICROSCOPIC DIAGNOSIS A. Right femoral head, total arthroplasty: * Articular bone with reactive/degenerative changes. * Focal necrosis with peripheral palisading, [...] x 4 x 1 cm in aggregate. Cream Maker sections are submitted in A1 following decalcification (including sloped area of cortical surface and separate soft tissue). Additional sections are submitted in A2 on 03-01-2025 per pathologist request (including cortical surface x2 and separate soft tissue). [facility] 02-23-2025 CPT:24677,20334 -------- Patient Age/Sex Location Account Attending Physician -------- MILES TURNER 59/M [facility] [id number] Dr. Too Latham, DO -------- Signed (signature on file) Dr. Meg Garay MD 03/03/25 1740 -------- Normal [facility] Comment on above: Performed By: #### P DEC ####[facility] [id number] [place], [address] Discharge Instructionon 02-11 Discharge Instruction [facility] Medical Records Department [address] [place] [address] Instructions for Home/Discharge Instructions 02/23/25 1327 MR#: [id number] Acct: [id number] Name: MILES TURNER Rep #: [id number] : 1965 59 From: Too Latham DO PCP: Dr. Vinh Aguilar MD Status:REG [facility] Discharge Instructions Diet Discharge Diet: No restrictions [...] Care Provider: Vinh Aguilar Instructions Print Language: Chadian Discharge Orders/Prescriptions Prescriptions: New acetaminophen 500 mg [...] pain) 7 Days Qty: 60 0RF Continued valsartan-hydrochloro thiazide 320-25 mg tablet 1 tab PO QDAY omeprazole 40 mg capsule,delayed release(DR/EC) 40 mg PO QDAY folic acid 1 mg tablet 1 mg PO BID gemfibrozil 600 MG tablet 600 mg PO BIDAC omega 9-rnb-lzh-fish oil [Fish Oil] 1,200 (144-216) mg capsule [...] CC: Dr. Vinh Aguilar MD Signed Normal [facility] Hip Min 2 Views (Portable)on 02-23-2025 Hip Min 2 Views (Portable) [facility] Imaging Services [address] [place] [address] Hip Min 2 Views (Portable) MR#: [id number] Acct: [id number] Name: MILES TURNER Rep #: [id number] : 1965 M 59 From: Joel Arana MD PCP: Dr. Vinh Aguilar MD Status: [facility] Study: Hip Min 2 Views (Portable) Date of Exam: 02/23 Exam# [id number] Ordering Dr: Too Latham DO PROCEDURE: HIP [...] rex and soft tissue air. Reading Location: [id number] CC: Dr. Too Latham DO; Dr. Vinh Aguilar MD Tipple Tender: Signed [facility] MR/POSTOP.[facility] 02-23-2025 MR/POSTOP.[facility] Medical Records Department [address] [place] [address] Anesthesia Postop Eval I 02/23/25 1344 MR#: [id number] Acct: [id number] Name: MILES TURNER Rep #: [id number] : 1965 59 From: Magdalena Beach CRNA PCP: Dr. Vinh Aguilar MD Status:REG [facility] Y Race: C Location: [place] [address] Anesthesia: Postop Eval I Current Vital Signs [...] completed: Yes 02/23/25 1344 Date Magdalena Beach CURRICULUM DEVELOPMENT COORDINATOR Cosigner Signature: Date CC: Signed [facility] MR/[id number] 02-23-2025 MR/POSTOPAN2 [facility] Medical Records Department [address] [place] [address] Anesthesia Postop Eval II 02/23/25 1402 MR#: [id number] Acct: [id number] Name: MILES TURNER Rep #: [id number] : 1965 59 From: Vinicius Carlson MD PCP: Dr. Vinh Aguilar MD Status:REG [facility] Y Race: C Location: AC02- Anesthesia Postop Eval I Sum Postop Eval Completion status Anesthesia document: Postop Eval 1 completed: Yes Anesthesia Postop Eval I Summary Anesthesia Postop Eval I Summary: Anesthesia Postop Eval I: Assessment Summary Airway patent Yes 02/23/25 13:44 CURRICULUM DEVELOPMENT COORDINATOR.LMIL Spontaneous unlabored Yes 02/23/25 13:44 CURRICULUM DEVELOPMENT COORDINATOR.LMIL respirations Mental status Awake,Calm 02/23/25 13:44 CURRICULUM DEVELOPMENT COORDINATOR.LMIL nausea No 02/23/25 13:44 CURRICULUM DEVELOPMENT COORDINATOR.LMIL Vomiting No 02/23/25 13:44 CURRICULUM DEVELOPMENT COORDINATOR.LMIL Anesthesia Postop Eval I: Fluid Summary Crystalloid volume administer 1,800 02/23/25 13:44 CURRICULUM DEVELOPMENT COORDINATOR.LMIL (ml) Colloids volume administered ( ml) Blood Product volume administered (ml) Total IV fluid infused 1,800 02/23/25 13:44 CURRICULUM DEVELOPMENT COORDINATOR.LMIL Anesthesia Postop Eval I: Summary Notes Anesthesia Complication No 02/23/25 13:44 CURRICULUM DEVELOPMENT COORDINATOR.LMIL Anesthesia Complication Comment: Post-operative progress note Anesthesia: Postop Eval II Evaluation Mental status: Awake and Calm Pain Level: 4 nausea: No Vomiting: No Complications Anesthesia Complication: No 02/23/251401 Date Vinicius Carlson MD Cosigner Signature: Date CC: Signed Normal [facility] Operative Reporton 05-13-202 5 Operative Report [facility] Medical Records Department [address] [place] [address] Operative Report 02/23/25 1322 MR#: [id number] Acct: [id number] Name: MILES TURNER Rep #: [id number] : 1965 59 From: Too Latham DO PCP: Dr. Vinh Aguilar MD Status:[facility] Location: [facility] Problems Associated Problem List Diagnoses (1) Other acute postprocedural pain: Operative Report (Standard) Operative Information Date of Procedure: 02/23/25 Pre-Operative Diagnosis: Right hip DJD/AVN Post-Operative Diagnosis: Same Surgery/Procedure Performed: Robotic assisted right total hip arthroplasty city routeman: Yes Discharge Rn: Moshe Chen Tasks completed by litigation assistant: Opening closing, Removing tissue, Implanting device and Retracting Additional assistant research scientist?: No Type of Anesthesia: Spinal RN Documented [...] 11:40 Procedure Stop Time: 13:30 Select all DRAINS/GRAFTS/IMPLANT S that apply: Prosthetic device Prosthetic device details: [place] Estimated Blood Loss: 125 Specimen collected: Yes Description of specimen(s) removed: Femoral head Description of surgery: Preoperative diagnosis: Right hip DJD Postoperative diagnosis: Same Procedure: CT-guided Makoplasty assisted right total hip arthroplasty Implants: Yogesh Accolade II stem size 6, 127 degree neck angle 0 head neck length 52 mm Trident II acetabular shell with 30mm cancellous screw 36 mm ceramic head, 10 degree Trident X3 polyethylene insert. Anesthesia: Spinal EBL: 125 cc Complications: None Condition: Stable to PACU Underwriting Internship Moshe Chen. My physician assistant research scientist was a vital part of this case. [...] femoral neck (more content not included)... Normal [facility] Extremity Lower without Cont raon 02-11-2025 Extremity Lower without Contra [facility] Imaging Services [address] [place] [address] Extremity Lower without Contra MR#: [id number] Acct: [id number] Name: MILES TURNER Rep #: [id number] : 1965 M 59 From: Alfredo Gomez MD PCP: Dr. Vinh Aguilar MD Status: REG CLI Study: Extremity Lower without Contra Date of Exam: 0 02/11/25 Exam# [id number] Ordering Dr: Too Latham DO PROCEDURE: EXTREMITY [...] Too Latham DO; Dr. Vinh Aguilar MD Tipple Tender: Signed Normal [facility] Type AND Screen - PAT ONLYon 02-11-2025 ABO and Rh group Nom (Bld) Blood group O Rh(D) positive Normal [facility] Comment on above: Order Comment: Surge ry Date: 02/23/25Reason for Laboratory Test PRE-[id number]) Right Total Hip Replacement Robotic Arm Assisted, E Performed By: #### B TSPAT ####[facility] [address] [place], [address] Absolute lymphocyte countOrd ered By: Mari Prescott on 02-09-2025 Lymphocytes Auto (Unsp spec) [#/Vol] 1.68 10*3/uL 0.83-4.51 [facility] Absolute neutrophil countOrd ered By: Mari Prescott on 02-09-2025 Neutrophils (Bld) [#/Vol] 2.7 10*3/uL 2.0-7.7 [facility] Anion gap in Serum or Plasma Ordered By: Mari Prescott on 02-09-2025 Anion gap [Moles/Vol] 11 mmol/L 5-15 [facility] Automated lymphocyte count a s percentage of total leukocytesOrdered By: Mari Prescott on 02-09-2025 Lymphocytes/100 WBC Auto (Unsp spec) 35.7 % 19-41 [facility] BUN/creatinine ratioOrdered By: Mairmeron Prescott on 02-09-2025 Urea nitrogen/Creatinine [Mass ratio] 31.4 mg/mg High 10-20 [facility] Basophil percentageOrdered B y: Mari Prescott on 02-09-2025 Basophils/100 WBC (Bld) 0.6 % 0-1 [facility] Bilirubin, totalOrdered By: Mari Prescott on 02-09-2025 Bilirubin [Mass/Vol] 0.57 mg/dL 0.00-1.30 [facility] CBC W/Diff, Automatedon 01-13 Absolute Lymph 1.68 X10 3/uL Normal 0.83-4.51 [facility] Comment on above: Performed By: #### L 100.0100, L500.4050 #### [facility] Laboratory [address] [place], [address] Absolute Neut 2.7 X10 3/uL Normal 2.0-7.7 [facility] Comment on above: Performed By: #### L 100.0100, L500.4050 #### [facility] [address] [place], [address] Basophils/100 WBC (Bld) 0.6 % Normal 0-1 [facility] Comment on above: Performed By: #### L 100.0100, L500.4050 #### [facility] [address] [place], [address] Eosinophils/100 WBC (Bld) 1.3 % Normal 0-5 [facility] Comment on above: Performed By: #### L 100.0100, L500.4050 #### [facility] [address] [place], [address] Erythrocyte distribution width (RBC) [Ratio] 13.9 % Normal 11.6-14.6 [facility] Comment on above: Performed By: #### L 100.0100, L500.4050 #### [facility] [address] [place], [address] Hematocrit (Bld) [Volume fraction] 39.9 % Low 40-54 [facility] Comment on above: Performed By: #### L 100.0100, L500.4050 #### [facility] [address] [place], [address] Hemoglobin (Bld) [Mass/Vol] 13.8 g/dL Normal 13.0-16.5 [facility] Comment on above: Performed By: #### L 100.0100, L500.4050 #### [facility] [address] [place], [address] IG% 0.200 Normal 0.0-0.9 [facility] Comment on above: Result Comment: IG% - Immature Granulocytes (promyelocytes, myelocytes and metamyelocytes) > 1% indicates that a LEFT SHIFT is Present. Performed By: #### L 100.0100, L500.4050 #### [facility] [address] [place], [address] Lymphocytes/100 WBC (Bld) 35.7 % Normal 19-41 [facility] Comment on above: Performed By: #### L 100.0100, L500.4050 #### [facility] [address] [place], [address] MCH (RBC) [Entitic mass] 34.4 pg High 27.0-32.0 [facility] Comment on above: Performed By: #### L 100.0100, L500.4050 #### [facility] [address] [place], [address] MCHC (RBC) [Mass/Vol] 34.6 g/dL Normal 32-36 [facility] Comment on above: Performed By: #### L 100.0100, L500.4050 #### [facility] [address] [place], [address] MCV (RBC) [Entitic vol] 99.5 fL High 80-94 [facility] Comment on above: Performed By: #### L 100.0100, L500.4050 #### [facility] [address] [place], [address] Monocytes/100 WBC (Bld) 5.9 % Normal 0-10 [facility] Comment on above: Performed By: #### L 100.0100, L500.4050 #### [facility] [address] [place], [address] Neutrophils/100 WBC (Bld) 56.3 % Normal 47-70 [facility] Comment on above: Performed By: #### L 100.0100, L500.4050 #### [facility] [address] [place], [address] Nucleated RBC (Bld) [#/Vol] 0 10*3/uL Normal 0-5 [facility] Comment on above: Performed By: #### L 100.0100, L500.4050 #### [facility] [address] [place], [address] Platelet mean volume (Bld) [Entitic vol] 10.0 fL Normal 6.2-12.0 [facility] Comment on above: Performed By: #### L 100.0100, L500.4050 #### [facility] Laboratory [address] [place], [address] Platelets (Bld) [#/Vol] 245 10*3/uL Normal 150-450 [facility] Comment on above: Performed By: #### L 100.0100, L500.4050 #### [facility] [address] [place], [address] RBC (Bld) [#/Vol] 4.01 10*6/uL Low 4.6-6.2 [facility] Comment on above: Performed By: #### L 100.0100, L500.4050 #### [facility] [address] [place], [address] RDW SD 50.5 fl High 35.1-43.9 [facility] Comment on above: Performed By: #### L 100.0100, L500.4050 #### [facility] [address] [place], [address] WBC (Bld) [#/Vol] 4.7 10*3/uL Normal 4.4-11.0 [facility] Comment on above: Performed By: #### L 100.0100, L500.4050 #### [facility] [address] [place], [address] Carbon dioxide, total [Moles /volume] in Central venous bloodOrdered By: Mari Prescott on 02-09-2025 CO2 [Moles/Vol] 23.2 mmol/L 21.0-32.0 [facility] Chloride assayOrdered By: Waldemar Prescott on 02-09-2025 Chloride [Moles/Vol] 106 mmol/L 98-108 [facility] Comprehensive Metabolic Prof ilon 02-09-2025 Albumin [Mass/Vol] 4.4 g/dL Normal 3.5-5.0 [facility] Comment on above: Performed By: #### L 100.0100, L500.4050 #### [facility] [address] [place], [address] Albumin/Globulin [Mass ratio] 1.9 {ratio} Normal 0.9-2.4 [facility] Comment on above: Performed By: #### L 100.0100, L500.4050 #### [facility] [address] [place], [address] ALK PHOS 96 U/L Normal 40-129 [facility] Comment on above: Performed By: #### L 100.0100, L500.4050 #### [facility] [address] [place], [address] ALT [Catalytic activity/Vol] 29 U/L Normal <=46 [facility] Comment on above: Performed By: #### L 100.0100, L500.4050 #### [facility] [address] [place], [address] AST [Catalytic activity/Vol] 19 U/L Normal <=37 [facility] Comment on above: Performed By: #### L 100.0100, L500.4050 #### [facility] [address] [place], [address] Bilirubin [Mass/Vol] 0.57 mg/dL Normal 0.00-1.30 [facility] Comment on above: Performed By: #### L 100.0100, L500.4050 #### [facility] [address] [place], [address] BUN/CRE 31.4 RATIO High 10-20 [facility] Comment on above: Performed By: #### L 100.0100, L500.4050 #### [facility] [address] [place], [address] Calcium [Mass/Vol] 9.5 mg/dL Normal 7.6-11.0 [facility] Comment on above: Performed By: #### L 100.0100, L500.4050 #### [facility] [address] [place], [address] Chloride [Moles/Vol] 106 mmol/L Normal 98-108 [facility] Comment on above: Performed By: #### L 100.0100, L500.4050 #### [facility] [address] [place], [address] CO2 [Moles/Vol] 23.2 mmol/L Normal 21.0-32.0 [facility] Comment on above: Performed By: #### L 100.0100, L500.4050 #### [facility] Laboratory [address] [place], [address] Creatinine [Mass/Vol] 0.66 mg/dL Low 0.70-1.20 [facility] Comment on above: Performed By: #### L 100.0100, L500.4050 #### [facility] Laboratory [address] [place], [address] GAP 11 Normal 5-15 [facility] Comment on above: Performed By: #### L 100.0100, L500.4050 #### [facility] [address] [place], [address] GFR/1.73 sq M.predicted among non-blacks MDRD (S/P/Bld) [Vol rate/Area] 108 mL/min/{1.73_m2} Normal >60 [facility] Comment on above: Result Comment: mL/m in/1.73m2 CKD-EPI Creatinine Equation (2020) Performed By: #### L 100.0100, L500.4050 #### [facility] [address] [place], [address] Globulin (S) [Mass/Vol] 2.3 g/dL Normal 2.2-4.2 [facility] Comment on above: Performed By: #### L 100.0100, L500.4050 #### [facility] [address] [place], [address] Glucose [Mass/Vol] 96 mg/dL Normal 70-99 [facility] Comment on above: Performed By: #### L 100.0100, L500.4050 #### [facility] [address] [place], [address] Potassium [Moles/Vol] 4.5 mmol/L Normal 3.3-5.1 [facility] Comment on above: Performed By: #### L 100.0100, L500.4050 #### [facility] [address] [place], [address] Sodium [Moles/Vol] 140 mmol/L Normal 133-145 [facility] Comment on above: Performed By: #### L 100.0100, L500.4050 #### [facility] [address] [place], [address] T PROT 6.7 g/dL Normal 5.9-8.4 [facility] Comment on above: Performed By: #### L 100.0100, L500.4050 #### [facility] [address] [place], [address] Urea nitrogen [Mass/Vol] 21 mg/dL High 4-19 [facility] Comment on above: Performed By: #### L 100.0100, L500.4050 #### [facility] [address] [place], [address] Eosinophil percentageOrdered By: Mari Prescott on 02-09-2025 Eosinophils/100 WBC (Bld) 1.3 % 0-5 [facility] Erythrocyte distribution wid th ratioOrdered By: Mari Prescott on 02-09-2025 Erythrocyte distribution width (RBC) [Ratio] 13.9 % 11.6-14.6 [facility] Erythrocyte distribution wid th standard deviationOrdered By: Mari Prescott on 02-09-2025 Erythrocyte distribution width (RBC) [Ratio] 50.5 fl High 35.1-43.9 [facility] Glomerular filtration rate ( GFR) estimation/1.73 sq m using serum, plasma, or whole bOrdered By: Mari Prescott on 02-09-2025 GFR/1.73 sq M.predicted among non-blacks MDRD (S/P/Bld) [Vol rate/Area] 108 mL/min/{1.73_m2} >60 [facility] Comment on above: mL/min/1.73m2 CKD-EP I Creatinine Equation (2020) Hematocrit Auto (Bld) [Volum e fraction]Ordered By: Mari Prescott on 02-09-2025 Hematocrit (Bld) [Volume fraction] 39.9 % Low 40-54 [facility] Hemoglobin measurementOrdere d By: Mari Prescott on 02-09-2025 Hemoglobin (Bld) [Mass/Vol] 13.8 g/dL 13.0-16.5 [facility] Immature granulocytes/100 WB C Auto (Bld)Ordered By: Mari Prescott on 02-09-2025 Immature granulocytes/100 WBC (Bld) 0.200 % 0.0-0.9 [facility] Comment on above: IG% - Immature Granu locytes (promyelocytes, myelocytes and metamyelocytes) > 1% indicates that a LEFT SHIFT is Present. Laboratory - Chemistry and C hemistry - challengeOrdered By: Mari Prescott on 02-09-2025 AST [Catalytic activity/Vol] 19 U/L <38 [facility] MCV (mean corpuscular volume ) determinationOrdered By: Mari Prescott on 02-09-2025 MCV (RBC) [Entitic vol] 99.5 fL High 80-94 [facility] Mean corpuscular hemoglobin (MCH) determinationOrdered By: Mari Prescott on 02-09-2025 MCH (RBC) [Entitic mass] 34.4 pg High 27.0-32.0 [facility] Mean corpuscular hemoglobin concentration (MCHC) determinationOrdered By: Mari Prescott on 02-09-2025 MCHC (RBC) [Mass/Vol] 34.6 g/dL 32-36 [facility] Mean platelet volume determi nationOrdered By: Mari Prescott on 02-09-2025 Platelet mean volume (Bld) [Entitic vol] 10.0 fL 6.2-12.0 [facility] Monocyte percentageOrdered B y: Mari Prescott on 02-09-2025 Monocytes/100 WBC (Bld) 5.9 % 0-10 [facility] Neutrophil percentageOrdered By: Mari Prescott on 02-09-2025 Neutrophils/100 WBC (Bld) 56.3 % 47-70 [facility] Nucleated red blood cell per centageOrdered By: Mari Prescott on 02-09-2025 Nucleated RBC/100 WBC (Bld) [Ratio] 0 % 0-5 [facility] Platelet countOrdered By: Waldemar Prescott on 02-09-2025 Platelets (Bld) [#/Vol] 245 10*3/uL 150-450 [facility] Potassium measurement (mass/ volume)Ordered By: Mari Prescott on 02-09-2025 Potassium (Unsp spec) [Mass/Vol] 4.5 mmol/L 3.3-5.1 [facility] RBC Auto (Bld) [#/Vol]Ordere d By: Mari Prescott on 02-09-2025 RBC (Bld) [#/Vol] 4.01 10*6/uL Low 4.6-6.2 [facility] Serum creatinine measurement (mass/volume)Ordered By: Mari Prescott on 02-09-2025 Creatinine [Mass/Vol] 0.66 mg/dL Low 0.70-1.20 [facility] Serum globulin measurementOr dered By: Mari Prescott on 02-09-2025 Globulin (S) [Mass/Vol] 2.3 g/dL 2.2-4.2 [facility] Serum glucose measurement (m ass/volume)Ordered By: Mari Prescott on 02-09-2025 Glucose [Mass/Vol] 96 mg/dL 70-99 [facility] Serum or plasma alanine treviño otransferase (ALT) measurementOrdered By: Mari Prescott on 02-09-2025 ALT [Catalytic activity/Vol] 29 U/L <47 [facility] Serum or plasma albumin sunny urement (mass/volume)Ordered By: Mari Prescott on 02-09-2025 Albumin [Mass/Vol] 4.4 g/dL 3.5-5.0 [facility] Serum or plasma albumin/glob ulin mass ratioOrdered By: Mari Prescott 02-09-2025 Albumin/Globulin [Mass ratio] 1.9 {ratio} 0.9-2.4 [facility] Serum or plasma alkaline mica sphatase measurementOrdered By: Mari Prescott on 02-09-2025 ALP [Catalytic activity/Vol] 96 U/L 40-129 [facility] Serum or plasma calcium sunny urement (mass/volume)Ordered By: Mari Prescott on 02-09-2025 Calcium [Mass/Vol] 9.5 mg/dL 7.6-11.0 [facility] Serum or plasma urea nitroge n measurement (mass/volume)Ordered By: Mari Prescott on 02-09-2025 Urea nitrogen [Mass/Vol] 21 mg/dL High 4-19 [facility] Sodium levelOrdered By: Elaine Prescott on 02-09-2025 Sodium [Moles/Vol] 140 mmol/L 133-145 [facility] Total proteinOrdered By: Eusebio Prescott on 02-09-2025 Protein [Mass/Vol] 6.7 g/dL 5.9-8.4 [facility] White blood cell (WBC) count Ordered By: Mari Prescott on 02-09-2025 WBC (Bld) [#/Vol] 4.7 10*3/uL 4.4-11.0 [facility] Hips B/L min 2 views w/ Pelv susana 02-08-2025 Hips B/L min 2 views w/ Pelvis [facility] Imaging Services [address] [place], [place] [address] Hips B/L min 2 views w/ Pelvis MR#: [id number] Acct: [id number] Name: MILES TURNER Rep #: [id number] : 1965 M 59 From: Judd Davis MD PCP: Dr. Vinh Aguilar MD Status: DEP AMB Study: Hips B/L min 2 views w/ Pelvis Date of Exam: 0 02/08/25 Exam# [id number] Ordering Dr: Too Latham DO PROCEDURE: HIPS [...] post left total hip arthroplasty. Reading Location: [facility] CC: Dr. Too Latham DO; Dr. Vinh Aguilar MD Tipple Tender: Signed Normal [facility] Orthopedic Visit Reporton Orthopedic Visit Report [facility] [address] [place] [address] OFFICE VISIT Date of Service: 02/08/25 MR#: [id number] Acct: [id number] Name: MILES TURNER Rep #: [id number] : 1965 Provider: Dr. Too jones DO Age/Sex: 59/M Location[place] [facility] Status: Signed Intake Vital Signs 11/04/24 15:56 [...] tab PO QDAY 07/27/24 02/08/25 Hi story mg-hydrochlorothiazid e 25 mg tablet acetaminophen 500 mg tablet 1,000 mg (2 x 500 mg) PO Q6H #100 12/29/24 02/08/25 Rx tabs etodolac 400 mg tablet 400 mg PO BID 02/08/25 02/08/25 Hi story folic acid 1 mg tablet 1 mg PO QDAY 02/08/25 02/08/25 His tory methotrexate sodium 15 mg tablet 25 mg PO QWEEK 02/08/25 02/08/25 H istory [facility] Medical History Wears glasses Colonoscopy planned Gastric [...] leg. He had an injection with the [facility] in the hip about a year [...] 06/01/2024 x-ray pelvis: Advanced bilateral hip arthrosis [id number] with bony erosion large cystic changes of [...] Code(s): M05.751 (more content not included)... Normal [facility] Orthopedic Visit Reporton Orthopedic Visit Report [facility] [address] [place] [address] [address] [place] [address] OFFICE VISIT Date of Service: 01/11/25 MR#: [id number] Acct: [id number] Name: MILES TURNER Rep #: [id number] : 1965 Provider: Dr. Too jones DO Age/Sex: 59/M Location: [facility] Status: Signed Intake Vital Signs 11/04/24 15:56 [...] tab PO QDAY 07/27/24 01/11/25 Hi story mg-hydrochlorothiazid e 25 mg tablet acetaminophen 500 mg tablet [...] over. No sign of infection or DVT [place] were removed today is neurovascular intact left [...] 06/01/2024 x-ray pelvis: Advanced bilateral hip arthrosis [id number] with bony erosion large cystic changes of [...] Latham DO (more content not included)... Normal [facility] Inital Evaluation (1) - PTon 01-01-2025 Inital Evaluation (1) - PT [facility] Physical Therapy [facility] [address] [place] [address] / REHABILITATION SERVICES INITIAL EVALUATION MR#: [id number] Acct: [id number] Name: MILES TURNER Rep #: [id number] : 1965 59 From: James Reyes PT, ATC Referring Dr.: Dr. Too Latham DO Status: R EG RCR Insurance: [employer] SELF PAY INSURANCE Patient's Visit Information Visit Information Visit Information: MILES TUNRER is a 59 year old M referred to Physical Therapy by Dr. Too Latham DO with a diagnosis of L ANA MARIA 12/29/24. 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 For Medicare only, by signing this I certify the plan of care. Please let me know if there are questions or concerns regarding this plan of care. Physician Signature: Date : 01/01/25 1338 CC: Dr. Too Latham, DO; Dr. Vinh Aguilar MD [facility] Signed Normal [facility] Bedside Glucoseon 12-29-2024 FINGERSTICK GLU 82 mg/dL Normal 74-106 [facility] Comment on above: Result Comment: GUILLERMINA ROJAS OF PATIENT CARE PER NURSING PROTOCOL Performed By: #### L 501.080 #### [facility] [place], [address] Decalcification bone/plaqueo n 12-29-2024 Decalcification bone/plaque -------- Patient Age/Sex Location Account Attending Physician -------- MILES TURNER 59/M [facility] [id number] Dr. Too Latham DO -------- Specimen: [id number] Received: 12/29/24 Status: BECKA Reynolds Num: [id number] Spec Type: FEM HEAD Subm Dr: Dr. Too Latham DO HEADER OPERATION: ERAS, left total hip replacement robotic arm assisted PRE-OP DIAGNOSIS: Rheumatoid arthritis, degenerative joint disease of left hip TISSUE SUBMITTED: A- Left femoral head -------- MICROSCOPIC DIAGNOSIS A. Femoral head, left, total hip arthroplasty: * Articular bone with osteoarthritic reactive/degenerative changes. MICROSCOPIC DESCRIPTION Slides are reviewed. GROSS DESCRIPTION A. Received in fixative is one container labeled with the patient's name and designated Left femoral head. The specimen consists of a femoral head measuring 5.5 x 5.5 x 6.3cm and multiple fragments of bone measuring 6 x 6 x 2.8cm in aggregate. Cream Maker sections submitted in two cassettes after decalsification. 12/29/2024 [facility]:[id number] -------- Patient Age/Sex Location Account Attending Physician -------- MILES TURNER 59/M [facility] [id number] Dr. Too Latham DO -------- Signed (signature on file) Dr. Meg Garay MD 01/04/25 1642 -------- Normal [facility] Comment on above: Performed By: #### L 100.0100, L500.4050 #### [facility] Laboratory [address] [place], [address] Discharge Instructionon 12-12 Discharge Instruction [facility] Medical Records Department [address] [place] [address] Instructions for Home/Discharge Instructions 12/29/24 1006 MR#: [id number] Acct: [id number] Name: MILES TURNER Rep #: [id number] : 1965 59 From: Too Latham DO PCP: Dr. Vinh Aguilar MD Status:REG [facility] Discharge Instructions Diet Discharge Diet: No restrictions [...] Care Provider: Vinh Aguilar Instructions Print Language: Chadian Discharge Orders/Prescriptions Prescriptions: New acetaminophen 500 mg [...] pain) 7 Days Qty: 60 0RF Continued valsartan-hydrochloro thiazide 320-25 mg tablet 1 tab PO QDAY [...] CC: Dr. Vinh Aguilar MD Signed Normal [facility] de[facility]dered By: Too Latham on 12-29-2024 Bedside Glucose (Misc Panel) 82 mg/dL 74-106 [facility] Comment on above: MANAGEMENT OF PATIEN T CARE PER NURSING PROTOCOL Glucose [Mass/Vol] 82 mg/dL 74-106 [facility] Comment on above: MANAGEMENT OF PATIEN T CARE PER NURSING PROTOCOL Hip Min 2 Views (Portable)on 12-29-2024 Hip Min 2 Views (Portable) [facility] Imaging Services [address] [place] [address] Hip Min 2 Views (Portable) MR#: [id number] Acct: [id number] Name: MILES TURNER Rep #: [id number] : 1965 M 59 From: Abdifatah Mauro MD PCP: Dr. Vinh Aguilar MD Status: [facility] Study: Hip Min 2 Views (Portable) Date of Exam: 12/29 Exam# [id number] Ordering Dr: Too Latham DO EXAM: XR [...] hip replacement in anatomic position. Reading Location: [facility] CC: Dr. Too Latham DO; Dr. Vinh Aguilar MD Tipple Tender: Signed Normal [facility] MR/POSTOP.ANEon 12-29-2024 MR/POSTOP.ANE [facility] Medical Records Department [address] [facility] [place] [address] Anesthesia Postop Eval I 12/29/24 0958 MR#: [id number] Acct: [id number] Name: MILES TURNER Rep #: [id number] : 1965 59 From: Magdalena Beach CURRICULUM DEVELOPMENT COORDINATOR PCP: Dr. Vinh Aguilar MD Status:REG SDC Y Race: C Location: [place] [address]-1 ADDENDUM by CURRICULUM DEVELOPMENT COORDINATOR Magdalena Beach on 12/29/24 at 1004 Addendum Fentanyl 50 mcg given 09:[address] to PACU 12/29/24 1004 Date Mag[place]ena [place] CRNA cc: * Signed Anesthesia: Postop Eval I [...] 1 completed: Yes 12/29/24958 Date [place]ena [place] CURRICULUM DEVELOPMENT COORDINATOR Cosigner Signature: Date CC: Signed Normal [facility] MR/[id number] 12-29-2024 [facility] Medical Records Department [address] [place] [address] Anesthesia Postop Eval II 12/29/24 1111 MR#: [id number] Acct: [id number] Name: MILES TURNER BRENDAN Rep #: [id number] : 1965 59 From: Bobo Diamond MD PCP: Dr. Vinh Aguilar MD Status:REG SDC Y Race: C Location: [place] [address]- Anesthesia Postop Eval I Sum Postop Eval Completion status Anesthesia document: Postop Eval 1 completed: Yes Anesthesia Postop Eval I Summary Anesthesia Postop Eval I Summary: Anesthesia Postop Eval I: Assessment Summary Airway patent Yes 12/29/24 09:59 CURRICULUM DEVELOPMENT COORDINATOR.LMIL Spontaneous unlabored Yes 12/29/24 09:59 CURRICULUM DEVELOPMENT COORDINATOR.LMIL respirations Mental status Awake 12/29/24 09:59 CURRICULUM DEVELOPMENT COORDINATOR.LMIL nausea No 12/29/24 09:59 CURRICULUM DEVELOPMENT COORDINATOR.LMIL Vomiting No 12/29/24 09:59 CURRICULUM DEVELOPMENT COORDINATOR.LMIL Anesthesia Postop Eval I: Fluid Summary Crystalloid volume administer 2,600 12/29/24 09:59 CURRICULUM DEVELOPMENT COORDINATOR.LMIL (ml) Colloids volume administered ( ml) Blood Product volume administered (ml) Total IV fluid infused 2,600 12/29/24 09:59 CURRICULUM DEVELOPMENT COORDINATOR.LMIL Anesthesia Postop Eval I: Summary Notes Anesthesia Complication No 12/29/24 09:59 CURRICULUM DEVELOPMENT COORDINATOR.LMIL Anesthesia Complication Comment: Post-operative progress note Anesthesia: Postop Eval II Evaluation Mental status: Awake Pain Level: 0 nausea: No Vomiting: No Complications Anesthesia Complication: No 12/29/24 1111 Date Bobo Diamond MD Cosigner Signature: Date CC: Signed Normal [facility] Operative Reporton 5 Operative Report [facility] Medical Records Department [address] [place] [address] Operative Report 12/29/24 1002 MR#: [id number] Acct: [id number] Name: YUEMILES BRENDAN Rep #: [id number] : 1965 59 From: Too Latham DO PCP: Dr. Vinh Aguilar MD Status:REG [facility] Location: [place] [address] Operative Report (Standard) Operative Information Date of Procedure: 12/29/24 Pre-Operative Diagnosis: Left hip DJD rheumatoid arthritis Post-Operative Diagnosis: Same Surgery/Procedure Performed: Left total hip arthroplasty city routeman: Yes Discharge Rn: Moshe Chen Tasks completed by litigation assistant: Opening closing Additional assistant research scientist?: No Type of Anesthesia: Spinal RN Documented Start/Stop Times: Operation Date: 12/29/24 07:30 Case Time Into Pre-Op 12/29/24 05:35 Out of Pre-Op 12/29/24 07:35 Anesthesia Start 12/29/24 07:39 Into Room 12/29/24 07:39 Procedure Start 12/29/24 08:13 Procedure End 12/29/24 09:46 Anesthesia End 12/29/24 09:51 Out of Room 12/29/24 09:51 Into Recovery 12/29/24 09:59 Procedure Start Time: 08:13 Procedure Stop Time: 09:46 Select all DRAINS/GRAFTS/IMPLANT S that apply: Implanted device Implanted device details: Yogesh Estimated Blood Loss: 125 Specimen collected: Yes Description of specimen(s) removed: Femoral head Description of surgery: Preoperative diagnosis: Left hip DJD rheumatoid arthritis Postoperative diagnosis: Same Procedure: CT-guided Makoplasty assisted left total hip arthroplasty Implants: [place] Accolade II stem size 6, 127 degree neck angle +2.5 head neck length 56 mm Trident II acetabular shell with 40 mm cancellous screw 36 mm ceramic head, 10 degree Trident X3 polyethylene insert. Anesthesia: Spinal EBL: 125 cc Complications: None Condition: Stable to PACU Underwriting Internship Moshe Chen. My physician assistant research scientist was a vital part of this case. [...] cut. The (more content not included)... Normal [facility] Fructosamineon 12-22-2024 FRUCTOSAMINE 211 umol/L Normal 0-285 [facility] Comment on above: Result Comment: Publ ished reference interval for apparently healthy subjects between age 20 and 60 is 205 - 285 umol/L and in a poorly controlled diabetic population is 228 - 563 umol/L with a mean of 396 umol/L. Performed at: [address] [id number] Loan Examiner: Jamey Garcia PhD, Phone: [phone] Performed By: #### L 300.4310, L300.3900, M100.651, BTSPAT, L3400.0100, L501.9985, L501.5200 ####[facility] [address] [facility] [place], [address] MRSA/SAID NASAL SCREENon MRSA+SAID SCRN Reason for Exam: PREOP MRSA MRSA Negative S. AUREUS S. aureus Negative Normal [facility] Comment on above: Performed By: #### L 300.4310, L300.3900, M100.651, BTSPAT, L3400.0100, L501.9985, L501.5200 ####[facility] [address] [facility] [place], [address] 12 Lead EKGon 12-21-2024 12 Lead EKG [facility] Cardiovascular Services [address] [place] [address] 12 Lead EKG 12/21/24 0741 MR#: [id number] Acct: [id number] Name: MILES TURNER Rep #: [id number] : 1965 59 From: Jose Luis Long MD Attending Dr: Dr. Too Latham, Status: DC E [facility] Ordering Dr: Too Latham DO Date: 12/21/24 Location: [facility] Sex: M C Admitted: Test Reason : PREOP Blood Pressure : */* mmHG Vent. Rate : 70 BPM Atrial Rate : 70 BPM P-R Int : 178 ms QRS Dur : 86 ms QT Int : 344 ms P-R-T Axes : 50 61 68 degrees QTcB Int : 371 ms Normal sinus rhythm Normal ECG Confirmed by Jose Luis Long ([id number]), production editor VALORIE YU ([id number]) on 12/21/2024 11:05:19 AM Referred By: Too Latham Confirmed By: Jose Luis Long 12/21/24 1105 Date Jose Luis Long MD CC: Dr. Too Latham, DO; Dr. 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 Valsartan-hydroCHLORO thiazide 320-25 mg per tablet Take 1 tablet [...] every 6 hours as needed for Pain. [place]-3 Fatty Acids (FISH OIL) 500 mg cap Take 500 mg by mouth once daily. mv-min/folic/K1/lycop en/lutein (MEN 50 PLUS MULTIVITAMIN ORAL) Take 1 [...] or cyanosis (more content not included)... Normal [facility] Electrocardiogram reportOrde red By: Jose Luis Long on 12-21-2024 EKG study [facility] Cardiovascular Services [address] [place] [address] 12 Lead EKG 12/21/24 0741 MR#: [id number] Acct: [id number] Name: MILES TURNER Rep #:[id number] : 1965 59 From: Jose Luis goodman MD Attending Dr: Dr. Too Latham DO Status: PRE SDC Ordering Dr: Too Latham DO Date: 12/21/24 Location: [facility] Sex: M C Admitted: Test Reason : PREOP Blood Pressure : */* mmHG Vent. Rate : 70 BPM Atrial Rate : 70 BPM P-R Int : 178 ms QRS Dur : 86 ms QT Int : 344 ms P-R-T Axes : 50 61 68 degrees QTcB Int : 371 ms Normal sinus rhythm Normal ECG Confirmed by Jose Luis Long ([id number]), production editor VALORIE YU ([id number]) on 12/21/2024 11:05:19 AM Referred By: Too Latham Confirmed By: Jose Luis Long 12/21/24 1105 Date _ Jose Luis Long MD CC: Dr. Too Latham DO; Dr. Vinh Aguilar MD ~ Signed [facility] Other Phone: FructosamineOrdered By: Marcus Latham on 12-21-2024 Fructosamine 211 umol/L 0-285 [facility] Comment on above: Published reference interval for apparently healthysubjects between age 20 and 60 is 205 - 285 umol/L and in apoorly controlled diabetic population is 228 - 563 umol/Lwith a mean of 396 umol/L.Performed at: [facility] [address] [id number] Director: Jamey Garcia PhD, Phone: [phone] Hemoglobin A1con 12-21-2024 HbA1c (Bld) [Mass fraction] 5.2 % Low <=5.6 [facility] Comment on above: Performed By: #### L 300.4310, L300.3900, M100.651, BTSPAT, L3400.0100, L501.5891, L501.9120 ####[facility] [address] [place], [address] Hemoglobin A1c percentageOrd ered By: Too Latham on 12-21-2024 HbA1c (Bld) [Mass fraction] 5.2 % Low >5.7 [facility] International normalized rat io (INR) calculationOrdered By: Too Latham on 12-21-2024 INR Coag (Bld) [Relative time] 1.0 {INR} [facility] MRSA screenOrdered By: Bin Latham on 12-21-2024 MRSA DNA ALEXANDREA+probe Ql (Unsp spec) [facility] Nasal Screen MRSA/MSSA [facility] Magnesiumon 12-21-2024 Magnesium [Mass/Vol] 2.2 mg/dL Normal 1.5-2.2 [facility] Comment on above: Performed By: #### L 300.4310, L300.3900, M100.651, BTSPAT, L3400.0100, L501.9985, L501.5200 ####[facility] [address] [place], [place], [phone] Magnesium (Unsp spec) [Mass/ Vol]Ordered By: Too Latham on 12-21-2024 Magnesium [Mass/Vol] 2.2 mg/dL 1.5-2.2 [facility] Magnesium measurement (mass/ volume)Ordered By: Too Latham on 12-21-2024 Magnesium (Unsp spec) [Mass/Vol] 2.2 mg/dL 1.5-2.2 [facility] Partial Thromboplast Timeon 12-21-2024 aPTT Coag (Bld) [Time] 27.6 s Normal 24.1-36.2 [facility] Comment on above: Performed By: #### L 300.4310, L300.3900, M100.651, BTSPAT, L3400.0100, L501.9985, L501.5200 ####[facility] [address] [place], [address] Prothrombin Time w/INRon INR Coag (PPP) [Relative time] 1.0 {INR} Normal [facility] Comment on above: Performed By: #### L 300.4310, L300.3900, M100.651, BTSPAT, L3400.0100, L501.9985, L501.5200 ####[facility] [address] [place], [address] PT Coag (PPP) [Time] 12.8 s Normal 11.7-14.9 [facility] Comment on above: Performed By: #### L 300.4310, L300.3900, M100.651, BTSPAT, L3400.0100, L501.9985, L501.5200 ####[facility] [address] [place], [address] Prothrombin timeOrdered By: Too Latham on 12-21-2024 PT Coag (PPP) [Time] 12.8 s 11.7-14.9 [facility] Type AND Screen - PAT ONLYon 12-21-2024 Ab SCREEN GEL Negative Normal [facility] Comment on above: Order Comment: Reaso n for Laboratory Test [id number] TOTAL HIP ARTHROPLASTY Performed By: #### L 300.4310, L300.3900, M100.651, BTSPAT, L3400.0100, L501.9985, L501.5200 ####[facility] [address] [place], [address] aPTT Coag (PPP) [Time]Ordere d By: Too Latham on 12-21-2024 aPTT Coag (Bld) [Time] 27.6 s 24.1-36.2 [facility] Orthopedic Visit Reporton Orthopedic Visit Report [facility] [address] [place] [address] [address] [place] [address] OFFICE VISIT Date of Service: 12/16/24 MR#: [id number] Acct: [id number] Name: MILES TURNER Rep #: [id number] : 1965 Provider: Dr. Too jones DO Age/Sex: 59/M Location: [facility] Status: Signed Intake Vital Signs 11/04/24 15:56 [...] tab PO QDAY 07/27/24 12/16/24 Hi story mg-hydrochlorothiazid e 25 mg tablet tramadol 50 mg tablet [...] Performing Provider: Too Latham DO Performing Location: [facility] (more content not included)... Normal [facility] Extremity Lower without Cont raon 12-11-2024 Extremity Lower without Contra [facility] Imaging Services [address] [place], [place] [id number] Extremity Lower without Contra MR#: [id number] Acct: [id number] Name: MILES TURNER Rep #: [id number] : 1965 M 59 From: Jose Juan stone MD PCP: Dr. Vinh Aguilar MD Status: REG CLI Study: Extremity Lower without Contra Date of Exam: 0 12/11/24 Exam# [id number] Ordering Dr: Too Latham DO PROCEDURE: EXTREMITY LOWER WITHOUT CONTRA REASON FOR EXAM: Templating for left total hip replacement. [facility] protocol TECHNIQUE: Multiple axial tomographic images of [...] use of iterative reconstruction technique). Reading Location: [id number] CC: Dr. Too Latham DO; Dr. Vinh Aguilar MD Tipple Tender: Signed [facility] 11-24-2024 CNPN Telephone (INTMWS) MILES TURNER ([id number]) 1965 M [facility] Date Time Provider Department 11/24/24 VINH AGUILAR INTMWS During your visit today, we recorded the following information about you: Lakshmi Paula LPN 11/24/2024 2:34 PM Signed Fax rec'd from Dr. Latham's office noting pt is having left total hip arthroplasty 12/29/24. Pt will need to see pcp or his [facility] within 30 days of scheduled surgery. Message [...] by mouth two times a day. - Valsartan-hydroCHLORO thiazide 320-25 mg per tablet Take 1 tablet by mouth once daily. - cholecalciferol, vitamin D3, (VITAMIN D3 ORAL) Take 5,000 Units by mouth once daily. - acetaminophen (TYLENOL) 500 mg tablet Take 1 tablet by mouth every 6 hours as needed for Pain. - [place]-3 Fatty Acids (FISH OIL) 500 mg cap [...] Encounter Status:Closed by LAKSHMI PAULA on 11/24/24 [facility] 11-13-2024 FIFI Telephone (INTWS) MILES TURNER ([id number]) 1965 Anival PRIETO Date Time Provider Department 11/13/24 VINH AGUILAR During your visit today, we recorded the following information about you: Anival Rodriguez RN 11/13/2024 4:55 PM Signed Patient reports he is having a hip replacement with [facility] on 12-29-24. Asking if he needs to [...] by mouth two times a day. - Valsartan-hydroCHLORO thiazide 320-25 mg per tablet Take 1 tablet by mouth once daily. - cholecalciferol, vitamin D3, (VITAMIN D3 ORAL) Take 5,000 Units by mouth once daily. - acetaminophen (TYLENOL) 500 mg tablet Take 1 tablet by mouth every 6 hours as needed for Pain. - [place]-3 Fatty Acids (FISH OIL) 500 mg cap [...] Encounter Status:Closed by Anival RODRIGUEZ on 11/13/24 Normal [facility] Absolute lymphocyte countOrd ered By: Mari Prescott on 11-11-2024 Lymphocytes Auto (Unsp spec) [#/Vol] 2.69 10*3/uL 0.83-4.51 [facility] Absolute neutrophil countOrd ered By: Mari Prescott on 11-11-2024 Neutrophils (Bld) [#/Vol] 5.2 10*3/uL 2.0-7.7 [facility] Albumin to globulin ratioOrd ered By: Mari Prescott on 11-11-2024 Albumin/Globulin [Mass ratio] 1.3 {ratio} 0.9-2.4 [facility] Automated lymphocyte count a s percentage of total leukocytesOrdered By: Mari Prescott on 11-11-2024 Lymphocytes/100 WBC Auto (Unsp spec) 31.2 % 19-41 [facility] Basophil percentageOrdered B y: Mari Prescott on 11-11-2024 Basophils/100 WBC (Bld) 0.3 % 0-1 [facility] Bilirubin, totalOrdered By: Mari Prescott on 11-11-2024 Bilirubin [Mass/Vol] 0.80 mg/dL 0.20-1.00 [facility] Comment on above: For patients on eltr ombopag therapy, use of Dimension [place] TBIL is not recommended. Blood urea nitrogen (BUN)/cr eatinine ratioOrdered By: Mari Prescott on 11-11-2024 Urea nitrogen/Creatinine [Mass ratio] 33.2 mg/mg High 10-20 [facility] CBC W/Diff, Automatedon 10-15 Absolute Lymph 2.69 X10 3/uL Normal 0.83-4.51 [facility] Comment on above: Performed By: #### L 500.4050, L100.0100 ####[facility] [address] [place], [address] Absolute Neut 5.2 X10 3/uL Normal 2.0-7.7 [facility] Comment on above: Performed By: #### L 500.4050, L100.0100 ####[facility] [address] [place], [address] Basophils/100 WBC (Bld) 0.3 % Normal 0-1 [facility] Comment on above: Performed By: #### L 500.4050, L100.0100 ####[facility] [address] [place], [address] Eosinophils/100 WBC (Bld) 0.7 % Normal 0-5 [facility] Comment on above: Performed By: #### L 500.4050, L100.0100 ####[facility] [address] [place], [address] Erythrocyte distribution width (RBC) [Ratio] 12.5 % Normal 11.6-14.6 [facility] Comment on above: Performed By: #### L 500.4050, L100.0100 ####[facility] [address] [place], [address] Hematocrit (Bld) [Volume fraction] 45.7 % Normal 40-54 [facility] Comment on above: Performed By: #### L 500.4050, L100.0100 ####[facility] [address] [place], [address] Hemoglobin (Bld) [Mass/Vol] 15.5 g/dL Normal 13.0-16.5 [facility] Comment on above: Performed By: #### L 500.4050, L100.0100 ####[facility] [address] [place], [address] IG% 0.200 Normal 0.0-0.9 [facility] Comment on above: Result Comment: IG% - Immature Granulocytes (promyelocytes, myelocytes and metamyelocytes) > 1% indicates that a LEFT SHIFT is Present. Performed By: #### L 500.4050, L100.0100 ####[facility] [address] [place], [address] Lymphocytes/100 WBC (Bld) 31.2 % Normal 19-41 [facility] Comment on above: Performed By: #### L 500.4050, L100.0100 ####[facility] [address] [place], [address] MCH (RBC) [Entitic mass] 33.8 pg High 27.0-32.0 [facility] Comment on above: Performed By: #### L 500.4050, L100.0100 ####[facility] [address] [place], [address] MCHC (RBC) [Mass/Vol] 33.9 g/dL Normal 32-36 [facility] Comment on above: Performed By: #### L 500.4050, L100.0100 ####[facility] [address] [place], [address] MCV (RBC) [Entitic vol] 99.6 fL High 80-94 [facility] Comment on above: Performed By: #### L 500.4050, L100.0100 ####[facility] [address] [place], [address] Monocytes/100 WBC (Bld) 7.3 % Normal 0-10 [facility] Comment on above: Performed By: #### L 500.4050, L100.0100 ####[facility] [address] [place], [address] Neutrophils/100 WBC (Bld) 60.3 % Normal 47-70 [facility] Comment on above: Performed By: #### L 500.4050, L100.0100 ####[facility] [address] [place], [address] Nucleated RBC (Bld) [#/Vol] 0 10*3/uL Normal 0-5 [facility] Comment on above: Performed By: #### L 500.4050, L100.0100 ####[facility] [address] [place], [address] Platelet mean volume (Bld) [Entitic vol] 10.3 fL Normal 6.2-12.0 [facility] Comment on above: Performed By: #### L 500.4050, L100.0100 ####[facility] [address] [place], [address] Platelets (Bld) [#/Vol] 249 10*3/uL Normal 150-450 [facility] Comment on above: Performed By: #### L 500.4050, L100.0100 ####[facility] [address] [place], [address] RBC (Bld) [#/Vol] 4.59 10*6/uL Low 4.6-6.2 [facility] Comment on above: Performed By: #### L 500.4050, L100.0100 ####[facility] [address] [place], [address] RDW SD 46.2 fl High 35.1-43.9 [facility] Comment on above: Performed By: #### L 500.4050, L100.0100 ####[facility] [address] [place], [address] WBC (Bld) [#/Vol] 8.6 10*3/uL Normal 4.4-11.0 [facility] Comment on above: Performed By: #### L 500.4050, L100.0100 ####[facility] [address] [place], [address] Carbon dioxide measurementOr dered By: Mari Prescott on 11-11-2024 CO2 [Moles/Vol] 25.0 mmol/L 21.0-32.0 [facility] Chloride measurementOrdered By: Mari Prescott on 11-11-2024 Chloride [Moles/Vol] 104 mmol/L 98-107 [facility] Comprehensive Metabolic Prof ilon 11-11-2024 Albumin [Mass/Vol] 4.3 g/dL Normal 3.2-5.0 [facility] Comment on above: Performed By: #### L 500.4050, L100.0100 ####[facility] [address] [place], [address] Albumin/Globulin [Mass ratio] 1.3 {ratio} Normal 0.9-2.4 [facility] Comment on above: Performed By: #### L 500.4050, L100.0100 ####[facility] [address] [place], [address] ALK P 69 U/L Normal 45-117 [facility] Comment on above: Performed By: #### L 500.4050, L100.0100 ####[facility] [address] [place], [address] ALT [Catalytic activity/Vol] 29 U/L Normal 16-61 [facility] Comment on above: Performed By: #### L 500.4050, L100.0100 ####[facility] [address] [place], [address] AST [Catalytic activity/Vol] 12 U/L Low 15-37 [facility] Comment on above: Performed By: #### L 500.4050, L100.0100 ####[facility] [address] [place], [address] Bilirubin [Mass/Vol] 0.80 mg/dL Normal 0.20-1.00 [facility] Comment on above: Result Comment: For patients on eltrombopag therapy, use of Dimension [place] TBIL is not recommended. Performed By: #### L 500.4050, L100.0100 ####[facility] [address] [place], [address] BUN/CRE 33.2 RATIO High 10-20 [facility] Comment on above: Performed By: #### L 500.4050, L100.0100 ####[facility] [address] [place], [address] CA,Total 9.5 mg/dL Normal 8.5-10.1 [facility] Comment on above: Performed By: #### L 500.4050, L100.0100 ####[facility] [address] [place], [address] Chloride [Moles/Vol] 104 mmol/L Normal 98-107 [facility] Comment on above: Performed By: #### L 500.4050, L100.0100 ####[facility] [address] [place], [address] CO2 [Moles/Vol] 25.0 mmol/L Normal 21.0-32.0 [facility] Comment on above: Performed By: #### L 500.4050, L100.0100 ####[facility] [address] [place], [address] Creatinine [Mass/Vol] 0.84 mg/dL Normal 0.70-1.30 [facility] Comment on above: Result Comment: The validity of the calculated GFR GFRAA in patients over 70 years has not been determined. Clinical correlation is essential. Performed By: #### L 500.4050, L100.0100 ####[facility] [address] [place], [address] EST GFR - AA 120 mL/min Normal >60 [facility] Comment on above: Result Comment: Afri can [place] GFR Calc Performed By: #### L 500.4050, L100.0100 ####[facility] [address] [place], [address] GAP 9 Normal 5-15 [facility] Comment on above: Performed By: #### L 500.4050, L100.0100 ####[facility] [address] [place], [address] GFR/1.73 sq M.predicted among non-blacks MDRD (S/P/Bld) [Vol rate/Area] 99 mL/min/{1.73_m2} Normal >60 [facility] Comment on above: Result Comment: Non- GFR Calc Performed By: #### L 500.4050, L100.0100 ####[facility] [address] [place], [address] Globulin (S) [Mass/Vol] 3.3 g/dL Normal 2.2-4.2 [facility] Comment on above: Performed By: #### L 500.4050, L100.0100 ####[facility] [address] [place], [address] Glucose [Mass/Vol] 85 mg/dL Normal 74-106 [facility] Comment on above: Performed By: #### L 500.4050, L100.0100 ####[facility] [address] [place], [address] Potassium [Moles/Vol] 4.0 mmol/L Normal 3.5-5.1 [facility] Comment on above: Performed By: #### L 500.4050, L100.0100 ####[facility] [address] [place], [address] Sodium [Moles/Vol] 137 mmol/L Normal 136-145 [facility] Comment on above: Performed By: #### L 500.4050, L100.0100 ####[facility] [address] [place], [address] T PROT 7.6 g/dL Normal 6.4-8.2 [facility] Comment on above: Performed By: #### L 500.4050, L100.0100 ####[facility] [address] [place], [address] Urea nitrogen [Mass/Vol] 28 mg/dL High 7-18 [facility] Comment on above: Performed By: #### L 500.4050, L100.0100 ####[facility] [address] [place], [address] Eosinophil percentageOrdered By: Mari Prescott on 11-11-2024 Eosinophils/100 WBC (Bld) 0.7 % 0-5 [facility] Erythrocyte distribution wid th ratioOrdered By: Mari Prescott on 11-11-2024 Erythrocyte distribution width (RBC) [Ratio] 12.5 % 11.6-14.6 [facility] Erythrocyte distribution wid th standard deviationOrdered By: Mari Prescott on 11-11-2024 Erythrocyte distribution width (RBC) [Entitic vol] 46.2 fL High 35.1-43.9 [facility] Erythrocyte distribution width (RBC) [Ratio] 46.2 fl High 35.1-43.9 [facility] Estimated glomerular filtrat ion rate (GFR) AmericanOrdered By: Mari Prescott on 11-11-2024 Estimated GFR (MDRD) Amer 120 mL/min >60 [facility] Comment on above: GFR Calc Glomerular filtration rate ( GFR) estimationOrdered By: Mari Prescott on 11-11-2024 Estimated GFR (MDRD) Non-Af Amer 99 mL/min >60 [facility] Comment on above: Non- GFR Calc GFR/1.73 sq M.predicted among non-blacks MDRD (S/P/Bld) [Vol rate/Area] 99 mL/min/{1.73_m2} >60 [facility] Comment on above: Non- GFR Calc Glucose measurementOrdered B y: Mari Prescott on 11-11-2024 Glucose [Mass/Vol] 85 mg/dL 74-106 [facility] Hematocrit Auto (Bld) [Volum e fraction]Ordered By: Mari Prescott on 11-11-2024 Hematocrit (Bld) [Volume fraction] 45.7 % 40-54 [facility] Hemoglobin measurementOrdere d By: Mari Prescott on 11-11-2024 Hemoglobin (Bld) [Mass/Vol] 15.5 g/dL 13.0-16.5 [facility] Immature granulocytes/100 WB C Auto (Bld)Ordered By: Mari Prescott on 11-11-2024 Immature granulocytes/100 WBC (Bld) 0.200 % 0.0-0.9 [facility] Comment on above: IG% - Immature Granu locytes (promyelocytes, myelocytes and metamyelocytes) > 1% indicates that a LEFT SHIFT is Present. Laboratory - Chemistry and C hemistry - challengeOrdered By: Mari Prescott on 11-11-2024 AST [Catalytic activity/Vol] 12 U/L Low 15-37 [facility] Lymphocytes Auto (Unsp spec) [#/Vol]Ordered By: Mari Prescott on 11-11-2024 Lymphocytes (Bld) [#/Vol] 2.69 10*3/uL 0.83-4.51 [facility] Lymphocytes/100 WBC Auto (Un sp spec)Ordered By: Mari Prescott on 11-11-2024 Lymphocytes/100 WBC (Bld) 31.2 % 19-41 [facility] MCV (mean corpuscular volume ) determinationOrdered By: Mari Prescott on 11-11-2024 MCV (RBC) [Entitic vol] 99.6 fL High 80-94 [facility] Mean corpuscular hemoglobin (MCH) determinationOrdered By: Mari Prescott on 11-11-2024 MCH (RBC) [Entitic mass] 33.8 pg High 27.0-32.0 [facility] Mean corpuscular hemoglobin concentration (MCHC) determinationOrdered By: Mrai Prescott on 11-11-2024 MCHC (RBC) [Mass/Vol] 33.9 g/dL 32-36 [facility] Mean platelet volume determi nationOrdered By: Mari Prescott on 11-11-2024 Platelet mean volume (Bld) [Entitic vol] 10.3 fL 6.2-12.0 [facility] Monocyte percentageOrdered B y: Mari Prescott on 11-11-2024 Monocytes/100 WBC (Bld) 7.3 % 0-10 [facility] Neutrophil percentageOrdered By: Mari Prescott on 11-11-2024 Neutrophils/100 WBC (Bld) 60.3 % 47-70 [facility] Nucleated red blood cell per centageOrdered By: Mari Prescott on 11-11-2024 Nucleated RBC/100 WBC (Bld) [Ratio] 0 % 0-5 [facility] Platelet countOrdered By: Waldemar Prescott on 11-11-2024 Platelets (Bld) [#/Vol] 249 10*3/uL 150-450 [facility] Potassium measurementOrdered By: Mari Prescott on 11-11-2024 Potassium [Moles/Vol] 4.0 mmol/L 3.5-5.1 [facility] RBC Auto (Bld) [#/Vol]Ordere d By: Mari Prescott on 11-11-2024 RBC (Bld) [#/Vol] 4.59 10*6/uL Low 4.6-6.2 [facility] Serum anion gap measurementO rdered By: Mari Prescott on 11-11-2024 Anion gap [Moles/Vol] 9 mmol/L 5-15 [facility] Serum globulin measurementOr dered By: Mari Prescott on 11-11-2024 Globulin (S) [Mass/Vol] 3.3 g/dL 2.2-4.2 [facility] Serum or plasma alanine treviño otransferase (ALT) measurementOrdered By: Mari Prescott on 11-11-2024 ALT [Catalytic activity/Vol] 29 U/L 16-61 [facility] Serum or plasma albumin sunny urement (mass/volume)Ordered By: Mari Prescott on 11-11-2024 Albumin [Mass/Vol] 4.3 g/dL 3.2-5.0 [facility] Serum or plasma alkaline mica sphatase measurementOrdered By: Mari Prescott on 11-11-2024 ALP [Catalytic activity/Vol] 69 U/L 45-117 [facility] Serum or plasma calcium sunny urement (mass/volume)Ordered By: Mari Prescott on 11-11-2024 Calcium [Mass/Vol] 9.5 mg/dL 8.5-10.1 [facility] Serum or plasma creatinine m easurement (mass/volume)Ordered By: Mari Prescott on 11-11-2024 Creatinine [Mass/Vol] 0.84 mg/dL 0.70-1.30 [facility] Comment on above: The validity of the calculated GFR & GFRAA in patients over 70 years has not been determined. Clinical correlation is essential. Serum or plasma urea nitroge n measurement (mass/volume)Ordered By: Mari Prescott on 11-11-2024 Urea nitrogen [Mass/Vol] 28 mg/dL High 7-18 [facility] Sodium levelOrdered By: Elaine Prescott on 11-11-2024 Sodium [Moles/Vol] 137 mmol/L 136-145 [facility] Total proteinOrdered By: Eusebio Prescott on 11-11-2024 Protein [Mass/Vol] 7.6 g/dL 6.4-8.2 [facility] White blood cell (WBC) count Ordered By: Mari Prescott on 11-11-2024 WBC (Bld) [#/Vol] 8.6 10*3/uL 4.4-11.0 [facility] Orthopedic Visit Reporton Orthopedic Visit Report [facility] [address] [place] [id number] OFFICE VISIT Date of Service: 11/04/24 MR#: [id number] Acct: [id number] Name: MILES TURNER Rep #: [id number] : 1965 Provider: Dr. Too jones DO Age/Sex: 59/M Location: [facility] Status: Signed Intake Vital Signs 07/27/24 08:18 [...] 1 tab PO QDAY 07/27/24 11/04/24 History mg-hydrochlorothiazid e 25 mg tablet tramadol 50 mg tablet [...] 5 tabs of 2.5mg. 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 He is interested in getting a [...] or to (more content not included)... Normal [facility] Absolute neutrophil countOrd ered By: Marimeron Prescott on 09-15-2024 Neutrophils (Bld) [#/Vol] 5.6 10*3/uL 2.0-7.7 [facility] Albumin to globulin ratioOrd ered By: Marimeron Prescott on 09-15-2024 Albumin/Globulin [Mass ratio] 1.2 {ratio} 0.9-2.4 [facility] Basophil percentageOrdered B y: Mari Prescott on 09-15-2024 Basophils/100 WBC (Bld) 0.6 % 0-1 [facility] Bilirubin, totalOrdered By: Marimeron Prescott on 09-15-2024 Bilirubin [Mass/Vol] 0.60 mg/dL 0.20-1.00 [facility] Comment on above: For patients on eltr ombopag therapy, use of Dimension [place] TBIL is not recommended. Blood urea nitrogen (BUN)/cr eatinine ratioOrdered By: Mari Prescott on 09-15-2024 Urea nitrogen/Creatinine [Mass ratio] 44.0 mg/mg High 10-20 [facility] CBC W/Diff, Automatedon Absolute Lymph 2.79 X10 3/uL Normal 0.83-4.51 [facility] Comment on above: Performed By: #### L 100.0100, L500.4050 ####[facility] [address] [place], [address] Absolute Neut 5.6 X10 3/uL Normal 2.0-7.7 [facility] Comment on above: Performed By: #### L 100.0100, L500.4050 ####[facility] [address] [place], [address] Basophils/100 WBC (Bld) 0.6 % Normal 0-1 [facility] Comment on above: Performed By: #### L 100.0100, L500.4050 ####[facility] [address] [place], [address] Eosinophils/100 WBC (Bld) 0.8 % Normal 0-5 [facility] Comment on above: Performed By: #### L 100.0100, L500.4050 ####[facility] [address] [place], [address] Erythrocyte distribution width (RBC) [Ratio] 13.6 % Normal 11.6-14.6 [facility] Comment on above: Performed By: #### L 100.0100, L500.4050 ####[facility] [address] [place], [address] Hematocrit (Bld) [Volume fraction] 42.8 % Normal 40-54 [facility] Comment on above: Performed By: #### L 100.0100, L500.4050 ####[facility] [address] [place], [address] Hemoglobin (Bld) [Mass/Vol] 14.7 g/dL Normal 13.0-16.5 [facility] Comment on above: Performed By: #### L 100.0100, L500.4050 ####[facility] [address] [place], [address] IG% 0.300 Normal 0.0-0.9 [facility] Comment on above: Result Comment: IG% - Immature Granulocytes (promyelocytes, myelocytes and metamyelocytes) > 1% indicates that a LEFT SHIFT is Present. Performed By: #### L 100.0100, L500.4050 ####[facility] [address] [place], [address] Lymphocytes/100 WBC (Bld) 30.1 % Normal 19-41 [facility] Comment on above: Performed By: #### L 100.0100, L500.4050 ####[facility] [address] [place], [address] MCH (RBC) [Entitic mass] 33.6 pg High 27.0-32.0 [facility] Comment on above: Performed By: #### L 100.0100, L500.4050 ####[facility] [address] [place], [address] MCHC (RBC) [Mass/Vol] 34.3 g/dL Normal 32-36 [facility] Comment on above: Performed By: #### L 100.0100, L500.4050 ####[facility] [address] [place], [address] MCV (RBC) [Entitic vol] 97.7 fL High 80-94 [facility] Comment on above: Performed By: #### L 100.0100, L500.4050 ####[facility] [address] [place], [address] Monocytes/100 WBC (Bld) 7.7 % Normal 0-10 [facility] Comment on above: Performed By: #### L 100.0100, L500.4050 ####[facility] [address] [place], [address] Neutrophils/100 WBC (Bld) 60.5 % Normal 47-70 [facility] Comment on above: Performed By: #### L 100.0100, L500.4050 ####[facility] [address] [place], [address] Nucleated RBC (Bld) [#/Vol] 0 10*3/uL Normal 0-5 [facility] Comment on above: Performed By: #### L 100.0100, L500.4050 ####[facility] [address] [place], [address] Platelet mean volume (Bld) [Entitic vol] 9.8 fL Normal 6.2-12.0 [facility] Comment on above: Performed By: #### L 100.0100, L500.4050 ####[facility] [address] [place], [address] Platelets (Bld) [#/Vol] 243 10*3/uL Normal 150-450 [facility] Comment on above: Performed By: #### L 100.0100, L500.4050 ####[facility] [address] [place], [address] RBC (Bld) [#/Vol] 4.38 10*6/uL Low 4.6-6.2 [facility] Comment on above: Performed By: #### L 100.0100, L500.4050 ####[facility] [address] [place], [address] RDW SD 49.2 fl High 35.1-43.9 [facility] Comment on above: Performed By: #### L 100.0100, L500.4050 ####[facility] [address] [place], [address] WBC (Bld) [#/Vol] 9.3 10*3/uL Normal 4.4-11.0 [facility] Comment on above: Performed By: #### L 100.0100, L500.4050 ####[facility] [address] [place], [address] Carbon dioxide measurementOr dered By: Mari Prescott on 09-15-2024 CO2 [Moles/Vol] 23.0 mmol/L 21.0-32.0 [facility] Chloride measurementOrdered By: Mari Prescott on 09-15-2024 Chloride [Moles/Vol] 105 mmol/L 98-107 [facility] Comprehensive Metabolic Prof ilon 09-15-2024 Albumin [Mass/Vol] 4.0 g/dL Normal 3.2-5.0 [facility] Comment on above: Performed By: #### L 100.0100, L500.4050 ####[facility] [address] [place], [address] Albumin/Globulin [Mass ratio] 1.2 {ratio} Normal 0.9-2.4 [facility] Comment on above: Performed By: #### L 100.0100, L500.4050 ####[facility] [address] [place], [address] ALK P 70 U/L Normal 45-117 [facility] Comment on above: Performed By: #### L 100.0100, L500.4050 ####[facility] [address] [place], [address] ALT [Catalytic activity/Vol] 22 U/L Normal 16-61 [facility] Comment on above: Performed By: #### L 100.0100, L500.4050 ####[facility] [address] [place], [address] AST [Catalytic activity/Vol] 12 U/L Low 15-37 [facility] Comment on above: Performed By: #### L 100.0100, L500.4050 ####[facility] [address] [place], [address] Bilirubin [Mass/Vol] 0.60 mg/dL Normal 0.20-1.00 [facility] Comment on above: Result Comment: For patients on eltrombopag therapy, use of Dimension [place] TBIL is not recommended. Performed By: #### L 100.0100, L500.4050 ####[facility] [address] [place], [address] BUN/CRE 44.0 RATIO High 10-20 [facility] Comment on above: Performed By: #### L 100.0100, L500.4050 ####[facility] [address] [place], [address] CA,Total 9.4 mg/dL Normal 8.5-10.1 [facility] Comment on above: Performed By: #### L 100.0100, L500.4050 ####[facility] [address] [place], [address] Chloride [Moles/Vol] 105 mmol/L Normal 98-107 [facility] Comment on above: Performed By: #### L 100.0100, L500.4050 ####[facility] [address] [place], [address] CO2 [Moles/Vol] 23.0 mmol/L Normal 21.0-32.0 [facility] Comment on above: Performed By: #### L 100.0100, L500.4050 ####[facility] [address] [place], [address] Creatinine [Mass/Vol] 0.73 mg/dL Normal 0.70-1.30 [facility] Comment on above: Result Comment: The validity of the calculated GFR GFRAA in patients over 70 years has not been determined. Clinical correlation is essential. Performed By: #### L 100.0100, L500.4050 ####[facility] [address] [place], [address] EST GFR - AA 142 mL/min Normal >60 [facility] Comment on above: Result Comment: Afri can [place] GFR Calc Performed By: #### L 100.0100, L500.4050 ####[facility] [address] [place], [address] GAP 9 Normal 5-15 [facility] Comment on above: Performed By: #### L 100.0100, L500.4050 ####[facility] [address] [place], [address] GFR/1.73 sq M.predicted among non-blacks MDRD (S/P/Bld) [Vol rate/Area] 117 mL/min/{1.73_m2} Normal >60 [facility] Comment on above: Result Comment: Non- GFR Calc Performed By: #### L 100.0100, L500.4050 ####[facility] [address] [place], [address] Globulin (S) [Mass/Vol] 3.3 g/dL Normal 2.2-4.2 [facility] Comment on above: Performed By: #### L 100.0100, L500.4050 ####[facility] [address] [place], [address] Glucose [Mass/Vol] 89 mg/dL Normal 74-106 [facility] Comment on above: Performed By: #### L 100.0100, L500.4050 ####[facility] [address] [place], [address] Potassium [Moles/Vol] 3.8 mmol/L Normal 3.5-5.1 [facility] Comment on above: Performed By: #### L 100.0100, L500.4050 ####[facility] [address] [place], [address] Sodium [Moles/Vol] 137 mmol/L Normal 136-145 [facility] Comment on above: Performed By: #### L 100.0100, L500.4050 ####[facility] [address] [place], [address] T PROT 7.3 g/dL Normal 6.4-8.2 [facility] Comment on above: Performed By: #### L 100.0100, L500.4050 ####[facility] [address] [place], [address] Urea nitrogen [Mass/Vol] 32 mg/dL High 7-18 [facility] Comment on above: Performed By: #### L 100.0100, L500.4050 ####[facility] [address] [place], [address] Eosinophil percentageOrdered By: Mari Prescott on 09-15-2024 Eosinophils/100 WBC (Bld) 0.8 % 0-5 [facility] Erythrocyte distribution wid th ratioOrdered By: Mari Prescott on 09-15-2024 Erythrocyte distribution width (RBC) [Ratio] 13.6 % 11.6-14.6 [facility] Erythrocyte distribution wid th standard deviationOrdered By: Mari Prescott on 09-15-2024 Erythrocyte distribution width (RBC) [Entitic vol] 49.2 fL High 35.1-43.9 [facility] Estimated glomerular filtrat ion rate (GFR) AmericanOrdered By: Mari Prescott on 09-15-2024 Estimated GFR (MDRD) Amer 142 mL/min >60 [facility] Comment on above: GFR Calc Glomerular filtration rate ( GFR) estimationOrdered By: Mari Prescott on 09-15-2024 Estimated GFR (MDRD) Non-Af Amer 117 mL/min >60 [facility] Comment on above: Non- GFR Calc Glucose measurementOrdered B y: Mari Prescott on 09-15-2024 Glucose [Mass/Vol] 89 mg/dL 74-106 [facility] Hematocrit Auto (Bld) [Volum e fraction]Ordered By: Mari Prescott on 09-15-2024 Hematocrit (Bld) [Volume fraction] 42.8 % 40-54 [facility] Hemoglobin measurementOrdere d By: Mari Prescott on 09-15-2024 Hemoglobin (Bld) [Mass/Vol] 14.7 g/dL 13.0-16.5 [facility] Immature granulocytes/100 WB C Auto (Bld)Ordered By: Mari Prescott on 09-15-2024 Immature granulocytes/100 WBC (Bld) 0.300 % 0.0-0.9 [facility] Comment on above: IG% - Immature Granu locytes (promyelocytes, myelocytes and metamyelocytes) > 1% indicates that a LEFT SHIFT is Present. Laboratory - Chemistry and C hemistry - challengeOrdered By: Mari Prescott on 09-15-2024 AST [Catalytic activity/Vol] 12 U/L Low 15-37 [facility] Lymphocytes Auto (Unsp spec) [#/Vol]Ordered By: Mari Prescott on 09-15-2024 Lymphocytes (Bld) [#/Vol] 2.79 10*3/uL 0.83-4.51 [facility] Lymphocytes/100 WBC Auto (Un sp spec)Ordered By: Mari Prescott on 09-15-2024 Lymphocytes/100 WBC (Bld) 30.1 % 19-41 [facility] MCV (mean corpuscular volume ) determinationOrdered By: Mari Prescott on 09-15-2024 MCV (RBC) [Entitic vol] 97.7 fL High 80-94 [facility] Mean corpuscular hemoglobin (MCH) determinationOrdered By: Mari Prescott on 09-15-2024 MCH (RBC) [Entitic mass] 33.6 pg High 27.0-32.0 [facility] Mean corpuscular hemoglobin concentration (MCHC) determinationOrdered By: Mari Prescott on 09-15-2024 MCHC (RBC) [Mass/Vol] 34.3 g/dL 32-36 [facility] Mean platelet volume determi nationOrdered By: Mari Prescott on 09-15-2024 Platelet mean volume (Bld) [Entitic vol] 9.8 fL 6.2-12.0 [facility] Monocyte percentageOrdered B y: Mari Prescott on 09-15-2024 Monocytes/100 WBC (Bld) 7.7 % 0-10 [facility] Neutrophil percentageOrdered By: Mari Prescott on 09-15-2024 Neutrophils/100 WBC (Bld) 60.5 % 47-70 [facility] Nucleated red blood cell per centageOrdered By: Mari Prescott on 09-15-2024 Nucleated RBC/100 WBC (Bld) [Ratio] 0 % 0-5 [facility] Platelet countOrdered By: Waldemar Prescott on 09-15-2024 Platelets (Bld) [#/Vol] 243 10*3/uL 150-450 [facility] Potassium measurementOrdered By: Mari Prescott on 09-15-2024 Potassium [Moles/Vol] 3.8 mmol/L 3.5-5.1 [facility] RBC Auto (Bld) [#/Vol]Ordere d By: Mari Prescott on 09-15-2024 RBC (Bld) [#/Vol] 4.38 10*6/uL Low 4.6-6.2 [facility] Serum anion gap measurementO rdered By: Mari Prescott on 09-15-2024 Anion gap [Moles/Vol] 9 mmol/L 5-15 [facility] Serum globulin measurementOr dered By: Mari Prescott on 09-15-2024 Globulin (S) [Mass/Vol] 3.3 g/dL 2.2-4.2 [facility] Serum or plasma alanine treviño otransferase (ALT) measurementOrdered By: Mari Prescott on 09-15-2024 ALT [Catalytic activity/Vol] 22 U/L 16-61 [facility] Serum or plasma albumin sunny urement (mass/volume)Ordered By: Mari Prescott on 09-15-2024 Albumin [Mass/Vol] 4.0 g/dL 3.2-5.0 [facility] Serum or plasma alkaline mica sphatase measurementOrdered By: Mari Prescott on 09-15-2024 ALP [Catalytic activity/Vol] 70 U/L 45-117 [facility] Serum or plasma calcium sunny urement (mass/volume)Ordered By: Mari Prescott on 09-15-2024 Calcium [Mass/Vol] 9.4 mg/dL 8.5-10.1 [facility] Serum or plasma creatinine m easurement (mass/volume)Ordered By: Mari Prescott on 09-15-2024 Creatinine [Mass/Vol] 0.73 mg/dL 0.70-1.30 [facility] Comment on above: The validity of the calculated GFR & GFRAA in patients over 70 years has not been determined. Clinical correlation is essential. Serum or plasma urea nitroge n measurement (mass/volume)Ordered By: Mari Prescott on 09-15-2024 Urea nitrogen [Mass/Vol] 32 mg/dL High 7-18 [facility] Sodium levelOrdered By: Elaine Prescott on 09-15-2024 Sodium [Moles/Vol] 137 mmol/L 136-145 [facility] Total proteinOrdered By: Eusebio Prescott on 09-15-2024 Protein [Mass/Vol] 7.3 g/dL 6.4-8.2 [facility] White blood cell (WBC) count Ordered By: Mari Prescott on 09-15-2024 WBC (Bld) [#/Vol] 9.3 10*3/uL 4.4-11.0 [facility] CBC W/Diff, Automatedon 10-2 Absolute Lymph 1.21 X10 3/uL Normal 0.83-4.51 [facility] Comment on above: Performed By: #### L 100.0100, L500.4050 #### [facility] [address] [place], [address] Absolute Neut 7.0 X10 3/uL Normal 2.0-7.7 [facility] Comment on above: Performed By: #### L 100.0100, L500.4050 #### [facility] [address] [place], [address] Basophils/100 WBC (Bld) 0.3 % Normal 0-1 [facility] Comment on above: Performed By: #### L 100.0100, L500.4050 #### [facility] [address] [place], [address] Eosinophils/100 WBC (Bld) 0.2 % Normal 0-5 [facility] Comment on above: Performed By: #### L 100.0100, L500.4050 #### [facility] [address] [place], [address] Erythrocyte distribution width (RBC) [Ratio] 13.5 % Normal 11.6-14.6 [facility] Comment on above: Performed By: #### L 100.0100, L500.4050 #### [facility] [address] [place], [address] Hematocrit (Bld) [Volume fraction] 43.5 % Normal 40-54 [facility] Comment on above: Performed By: #### L 100.0100, L500.4050 #### [facility] [address] [place], [address] Hemoglobin (Bld) [Mass/Vol] 15.4 g/dL Normal 13.0-16.5 [facility] Comment on above: Performed By: #### L 100.0100, L500.4050 #### [facility] [address] [place], [address] IG% 0.600 Normal 0.0-0.9 [facility] Comment on above: Result Comment: IG% - Immature Granulocytes (promyelocytes, myelocytes and metamyelocytes) > 1% indicates that a LEFT SHIFT is Present. Performed By: #### L 100.0100, L500.4050 #### [facility] [address] [place], [address] Lymphocytes/100 WBC (Bld) 13.9 % Low 19-41 [facility] Comment on above: Performed By: #### L 100.0100, L500.4050 #### [facility] [address] [place], [address] MCH (RBC) [Entitic mass] 34.0 pg High 27.0-32.0 [facility] Comment on above: Performed By: #### L 100.0100, L500.4050 #### [facility] [address] [place], [address] MCHC (RBC) [Mass/Vol] 35.4 g/dL Normal 32-36 [facility] Comment on above: Performed By: #### L 100.0100, L500.4050 #### [facility] [address] [place], [address] MCV (RBC) [Entitic vol] 96.0 fL High 80-94 [facility] Comment on above: Performed By: #### L 100.0100, L500.4050 #### [facility] [address] [place], [address] Monocytes/100 WBC (Bld) 4.7 % Normal 0-10 [facility] Comment on above: Performed By: #### L 100.0100, L500.4050 #### [facility] [address] [place], [address] Neutrophils/100 WBC (Bld) 80.3 % High 47-70 [facility] Comment on above: Performed By: #### L 100.0100, L500.4050 #### [facility] [address] [place], [address] Nucleated RBC (Bld) [#/Vol] 0 10*3/uL Normal 0-5 [facility] Comment on above: Performed By: #### L 100.0100, L500.4050 #### [facility] [address] [place], [address] Platelet mean volume (Bld) [Entitic vol] 10.0 fL Normal 6.2-12.0 [facility] Comment on above: Performed By: #### L 100.0100, L500.4050 #### [facility] [address] [place], [address] Platelets (Bld) [#/Vol] 219 10*3/uL Normal 150-450 [facility] Comment on above: Performed By: #### L 100.0100, L500.4050 #### [facility] [address] [place], [address] RBC (Bld) [#/Vol] 4.53 10*6/uL Low 4.6-6.2 [facility] Comment on above: Performed By: #### L 100.0100, L500.4050 #### [facility] [address] [place], [address] RDW SD 46.5 fl High 35.1-43.9 [facility] Comment on above: Performed By: #### L 100.0100, L500.4050 #### [facility] [address] [place], [address] WBC (Bld) [#/Vol] 8.7 10*3/uL Normal 4.4-11.0 [facility] Comment on above: Performed By: #### L 100.0100, L500.4050 #### [facility] [address] [place], [address] Comprehensive Metabolic Prof ilon 08-07-2024 Albumin [Mass/Vol] 4.0 g/dL Normal 3.2-5.0 [facility] Comment on above: Performed By: #### L 100.0100, L500.4050 #### [facility] [address] [place], [address] Albumin/Globulin [Mass ratio] 1.2 {ratio} Normal 0.9-2.4 [facility] Comment on above: Performed By: #### L 100.0100, L500.4050 #### [facility] [address] [place], [address] ALK P 66 U/L Normal 45-117 [facility] Comment on above: Performed By: #### L 100.0100, L500.4050 #### [facility] [address] [place], [address] ALT [Catalytic activity/Vol] 23 U/L Normal 16-61 [facility] Comment on above: Performed By: #### L 100.0100, L500.4050 #### [facility] [address] [place], [address] AST [Catalytic activity/Vol] 9 U/L Low 15-37 [facility] Comment on above: Performed By: #### L 100.0100, L500.4050 #### [facility] [address] [place], [address] Bilirubin [Mass/Vol] 0.70 mg/dL Normal 0.20-1.00 [facility] Comment on above: Result Comment: For patients on eltrombopag therapy, use of Dimension [place] TBIL is not recommended. Performed By: #### L 100.0100, L500.4050 #### [facility] [address] [place], [address] BUN/CRE 31.1 RATIO High 10-20 [facility] Comment on above: Performed By: #### L 100.0100, L500.4050 #### [facility] [address] [place], [address] CA,Total 9.2 mg/dL Normal 8.5-10.1 [facility] Comment on above: Performed By: #### L 100.0100, L500.4050 #### [facility] [address] [place], [address] Chloride [Moles/Vol] 108 mmol/L High 98-107 [facility] Comment on above: Performed By: #### L 100.0100, L500.4050 #### [facility] [address] [place], [address] CO2 [Moles/Vol] 22.0 mmol/L Normal 21.0-32.0 [facility] Comment on above: Performed By: #### L 100.0100, L500.4050 #### [facility] [address] [place], [address] Creatinine [Mass/Vol] 0.90 mg/dL Normal 0.70-1.30 [facility] Comment on above: Result Comment: The validity of the calculated GFR GFRAA in patients over 70 years has not been determined. Clinical correlation is essential. Performed By: #### L 100.0100, L500.4050 #### [facility] [address] [place], [address] EST GFR - AA 111 mL/min Normal >60 [facility] Comment on above: Result Comment: Afri can [place] GFR Calc Performed By: #### L 100.0100, L500.4050 #### [facility] [address] [place], [address] GAP 8 Normal 5-15 [facility] Comment on above: Performed By: #### L 100.0100, L500.4050 #### [facility] [address] [place], [address] GFR/1.73 sq M.predicted among non-blacks MDRD (S/P/Bld) [Vol rate/Area] 92 mL/min/{1.73_m2} Normal >60 [facility] Comment on above: Result Comment: Non- GFR Calc Performed By: #### L 100.0100, L500.4050 #### [facility] [address] [place], [address] Globulin (S) [Mass/Vol] 3.2 g/dL Normal 2.2-4.2 [facility] Comment on above: Performed By: #### L 100.0100, L500.4050 #### [facility] [address] [place], [address] Glucose [Mass/Vol] 111 mg/dL High 74-106 [facility] Comment on above: Result Comment: Fast ing Glucose result from 100 to 125 mg/dL suggests IMPAIRED HOMEOSTASIS per A.D.A. criteria. Performed By: #### L 100.0100, L500.4050 #### [facility] [address] [place], [address] Potassium [Moles/Vol] 4.0 mmol/L Normal 3.5-5.1 [facility] Comment on above: Performed By: #### L 100.0100, L500.4050 #### [facility] [address] [place], [address] Sodium [Moles/Vol] 138 mmol/L Normal 136-145 [facility] Comment on above: Performed By: #### L 100.0100, L500.4050 #### [facility] [address] [place], [address] T PROT 7.2 g/dL Normal 6.4-8.2 [facility] Comment on above: Performed By: #### L 100.0100, L500.4050 #### [facility] [address] [place], [address] Urea nitrogen [Mass/Vol] 28 mg/dL High 7-18 [facility] Comment on above: Performed By: #### L 100.0100, L500.4050 #### [facility] [address] [place], [address] Knee 4 or More Viewson 07-27 Knee 4 or More Views [facility] [address] [place] [address] Knee 4 or More Views MR#: [id number] Acct: [id number] Name: MILES TURNER Rep #: [id number] : 1965 M 59 From: Judd Davis MD PCP: Dr. Vinh Aguilar MD Status: DEP AMB Study: Knee 4 or More Views Date of Exam: 07/27/24 Exam# [id number] Ordering Dr: Too Latham DO [id number] STUDY: X-RAY - RIGHT KNEE REASON FOR [...] Signed: Judd Davis MD at 9:14 EDT Reading Location ID and State: [address] [place] [address] Tel , Service support , CC: Dr. Too Latham DO; Dr. Vinh Aguilar MD Tipple Tender: Signed Normal [facility] Knee 4 or More Views [facility] [address] [place] [address] Knee 4 or More Views MR#: [id number] Acct: [id number] Name: MILES TURNER Rep #: [id number] : 1965 M 59 From: Judd Davis MD PCP: Dr. Vinh Aguilar MD Status: DEP AMB Study: Knee 4 or More Views Date of Exam: 07/27/24 Exam# [id number] Ordering Dr: Too Latham DO [id number] STUDY: X-RAY - LEFT KNEE REASON FOR [...] Too Latham DO; Dr. Vinh Aguilar MD Tipple Tender: Signed Normal [facility] Orthopedic Visit Reporton Orthopedic Visit Report [facility] [address] [place] [address] OFFICE VISIT Date of Service: 07/27/24 MR#: [id number] Acct: [id number] Name: MILES TURNER Rep #: [id number] : 1965 Provider: Dr. Too jones DO Age/Sex: 59/M Location: [facility] Status: Signed Intake Vital Signs 12/13/19 16:07 [...] 1 tab PO QDAY 07/27/24 07/27/24 History mg-hydrochlorothiazid e 25 mg tablet PFSH Family History (Updated [...] of today???s visit was documented by Michelle FRAZN, acting as scribe. MILES TURNER is a [...] 5 tabs of 2.5mg. 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 He is interested in getting a [...] to palp (more content not included)... Normal [facility] XR KNEE GENERAL 4V AP BOTH/P A BOTH/LAT/MERC BILATERALon 03-07-2023 [facility] COLONOSCOPY SCREENINGon 05-15 [facility] No Panel Informationon 05-05 Radiology Study observation (narrative) [facility] XR Lumbar spine 3 Viewson IMPRESSION: Compression fractures in the lower thoracic spine of uncertain age. Spondylosis of the lumbar spine. Tipple Tender: [facility]STA Transcribe Date/Time: May 05 2021 2:50P Dictated by : NASH EMMANUEL MD This examination was interpreted and the report reviewed and electronically signed by: NASH EMMANUEL MD on May 05 2021 2:52PM [facility] DIVISION OF RADIOLOGY * * [...] unremarkable in appearance. DIVISION OF RADIOLOGY Provider, Osvaldo Rea - 05/05/2021 * * *Final Report* * [...] uncertain age. Spondylosis of the lumbar spine. Tipple Tender: [facility] Transcribe Date/Time: May 05 2021 2:50P Dictated by : NASH EMMANUEL MD This examination was interpreted and the report reviewed and electronically signed by: NASH EMMANUEL MD on May 05 2021 2:52PM EST [facility] XR Pelvis and Hip - left AP and Lateral frogon 05-05-2021 IMPRESSION: Osteoarthrosis of the hips. Tipple Tender: [facility] Transcribe Date/Time: May 05 2021 2:49P Dictated by : NASH EMMANUEL MD This examination was interpreted and the report reviewed and electronically signed by: NASH MEMANUEL MD on May 05 2021 2:50PM [facility] DIVISION OF RADIOLOGY * * [...] imaged lumbar spine. DIVISION OF RADIOLOGY Provider, Osvaldo cazares [place] - 05/05/2021 * * *Final Report* * [...] spine. IMPRESSION IMPRESSION: Osteoarthrosis of the hips. Tipple Tender: [facility] Transcribe Date/Time: May 05 2021 2:49P Dictated by : NASH EMMANUEL MD This examination was interpreted and the report reviewed and electronically signed by: NASH EMMANUEL MD on May 05 2021 2:50PM EST [facility] XR Pelvis and Hip - left AP and Lateral frogOrdered By: [facility] Provider on 05-05-2021 [facility] No Panel Information [facility] Vital Signs Date Time Vital Sign Value Performing Clinician Kassandra brooks 05-10-2025 09:040400 Body height 175.[address] Vinh Aguilar MD Work Phone: [facility] 05-10-2025 09:040400 Body mass index (BMI) [Ratio] 40.1 kg/m2 Dr. Vinh Aguilar MD Work Phone: [facility] 05-10-2025 09:04040 Body weight 123.[address] Vinh Aguilar MD Work Phone: 8(385)651-178994 [place] [address] 05-03-2025 08:37-0400 Body height 175.[address] Vinh Aguilar MD Work Phone: 9(445)841-923994 [place] [address] 05-03-2025 08:37-0400 Body mass index (BMI) [Ratio] 39.9 kg/m2 Dr. Vinh Aguilar MD Work Phone: 3(447)931-349094 [place] [address] 05-03-2025 08:37-0400 Body weight 122.[address] Vinh Aguilar MD Work Phone: 1(824)664-883494 [place] [address] 04-26-2025 08:25-0400 Body height 175.[address] Vinh Aguilar MD Work Phone: 3(509)697-193794 [place] [address] 04-26-2025 08:25-0400 Body mass index (BMI) [Ratio] 39.9 kg/m2 Dr. Vinh Aguilar MD Work Phone: 3(148)061-573094 [place] [address] 04-26-2025 08:25-0400 Body weight 122.[address] Vinh Aguilar MD Work Phone: 3(138)866-885394 [place] [address] 04-12-2025 08:27-0400 Body height 175.[address] Vinh Aguilar MD Work Phone: 9(732)229-539494 [place] [address] 04-12-2025 08:27-0400 Body mass index (BMI) [Ratio] 38.4 kg/m2 Dr. Vinh Aguilar MD Work Phone: 8(786)781-122594 [place] [address] 04-12-2025 08:27-0400 Body weight 117.[address] Vinh Aguilar MD Work Phone: 4(934)882-398194 [place] [address] 02-23-2025 17:15-0400 Body temperature 97.9 [degF] Dr. Vinh Aguilar MD Work Phone: 9(572)283-578194 [place] [address] 02-23-2025 17:15-0400 Diastolic blood pressure 83 mm[Hg] Dr. Vinh Aguilar MD Work Phone: 3(219)290-418794 [place] [address] 02-23-2025 17:15-0400 Heart rate 94 /min Dr. Vinh Aguilar MD Work Phone: 6(981)331-659694 [place] [address] 02-23-2025 17:15-0400 Respiratory rate 16 /min Dr. Vinh Aguilar MD Work Phone: 0(795)937-202994 [place] [address] 02-23-2025 17:15-0400 SaO2% (BldA) [Mass fraction] 94 % Dr. Vinh Aguilar MD Work Phone: 3(407)174-012094 [place] [address] 02-23-2025 17:15-0400 Systolic blood pressure 137 mm[Hg] Dr. Vinh Aguilar MD Work Phone: 0(058)330-510194 [place] [address] 02-23-2025 14:15-0400 Inhaled oxygen flow rate 4 L/min Dr. Vinh Aguilar MD Work Phone: 7(279)944-852794 [place] [address] 02-23-2025 08:40-0400 Body height 175.[address] Vinh Aguilar MD Work Phone: 1(961)915-472994 [place] [address] 02-23-2025 08:40-0400 Body mass index (BMI) [Ratio] 38.2 kg/m2 Dr. Vnih Aguilar MD Work Phone: 0(039)087-449794 [place] [address] 02-23-2025 08:40-0400 Body weight 117.[address] Vinh Aguilar MD Work Phone: 6(447)559-187694 [place] [address] 01-11-2025 10:47-0400 Body height 175.[address] Vinh Aguilar MD Work Phone: 5(619)013-220194 [place] [address] 01-11-2025 10:47-0400 Body mass index (BMI) [Ratio] 37.8 kg/m2 Dr. Vinh Aguilar MD Work Phone: 2(991)016-861294 [place] [address] 01-11-2025 10:47-0400 Body weight 116.[address] Vinh Aguilar MD Work Phone: 4(731)376-194494 [place] [address] 12-29-2024 14:00-0400 Body temperature 98.3 [degF] Dr. Vinh Aguilar MD Work Phone: [facility] 12-29-2024 14:00-0400 Heart rate 85 /min Dr. Vinh Aguilar MD Work Phone: [facility] 12-29-2024 14:00-0400 Respiratory rate 16 /min Dr. Vinh Aguilar MD Work Phone: 2(806)071-547631 [place] [address] 12-29-2024 14:00-0400 SaO2% (BldA) [Mass fraction] 96 % Dr. Vinh Aguilar MD Work Phone: 6(363)717-938231 [place] [address] 12-29-2024 12:50-0400 Diastolic blood pressure 81 mm[Hg] Dr. Vinh Aguilar MD Work Phone: 5(225)975-264031 [place] [address] 12-29-2024 12:50-0400 Systolic blood pressure 124 mm[Hg] Dr. Vinh Aguilar MD Work Phone: 1(034)554-225331 [place] [address] 12-29-2024 10:50-0400 Inhaled oxygen flow rate 4 L/min Dr. Vinh Aguilar MD Work Phone: [facility] 12-29-2024 06:05-0400 Body height 175.[address] Vinh Aguilar MD Work Phone: [facility] 12-29-2024 06:05-0400 Body mass index (BMI) [Ratio] 37.5 kg/m2 Dr. Vinh Aguilar MD Work Phone: [facility] 12-29-2024 06:05-0400 Body weight 115.[address] Vinh Aguilar MD Work Phone: [facility] 12-21-2024 17:29-0400 Body mass index (BMI) [Ratio] 37.02 kg/m2 Vinh Aguilar MD Work Phone: [facility] 12-21-2024 17:29-0400 Body temperature 98.01 [degF] Vinh Aguilar MD Work Phone: [facility] 12-21-2024 17:29-0400 Body weight 117.3 kg Vinh Aguilar MD Work Phone: [facility] 12-21-2024 17:29-0400 Diastolic blood pressure 78 mm[Hg] Vinh Aguilar MD Work Phone: [facility] 12-21-2024 17:29-0400 Heart rate 72 /min Vinh Aguilar MD Work Phone: [facility] 12-21-2024 17:29-0400 Respiratory rate 18 /min Vinh Aguilar MD Work Phone: [facility] 12-21-2024 17:29-0400 Systolic blood pressure 116 mm[Hg] Vinh Aguilar MD Work Phone: [facility] 11-04-2024 15:56-0500 Body height 176.[address] Vinh Aguilar MD Work Phone: [facility] 11-04-2024 15:56-0500 Body mass index (BMI) [Ratio] 38.6 kg/m2 Dr. Vinh Aguilar MD Work Phone: [facility] 11-04-2024 15:56-0500 Body weight 120.[address] Vinh Aguilar MD Work Phone: [facility] 05-15-2024 08:04-0400 Body height 178 cm Vinh Aguilar MD Work Phone: [facility] 05-15-2024 08:04-0400 Body mass index (BMI) [Ratio] 39.14 kg/m2 Vinh Aguilar MD Work Phone: [facility] 05-15-2024 08:04-0400 Body temperature 98.8 [degF] Vinh Aguilar MD Work Phone: [facility] 05-15-2024 08:04-0400 Body weight 124 kg Vinh Aguilar MD Work Phone: [facility] 05-15-2024 08:04-0400 Diastolic blood pressure 68 mm[Hg] Vinh Aguilar MD Work Phone: [facility] 05-15-2024 08:04-0400 Heart rate 73 /min Vinh Aguilar MD Work Phone: [facility] 05-15-2024 08:04-0400 Respiratory rate 16 /min Vinh Aguilar MD Work Phone: [facility] 05-15-2024 08:04-0400 SaO2% (BldA) [Mass fraction] 97 % Vinh Aguilar MD Work Phone: [facility] 05-15-2024 08:04-0400 Systolic blood pressure 114 mm[Hg] Vinh Aguilar MD Work Phone: [facility] 11-20-2023 16:08-0500 Body temperature 99.5 [degF] Noemi Ruby PRESS SUPERVISOR.DIRECTORY ASSISTANCE OPERATOR Work Phone: [facility] 11-20-2023 16:08-0500 Body weight 126.55 kg Noemi Ruby PRESS SUPERVISOR.DIRECTORY ASSISTANCE OPERATOR Work Phone: [facility] 11-20-2023 16:08-0500 Diastolic blood pressure 70 mm[Hg] Noemi Ruby PRESS SUPERVISOR.DIRECTORY ASSISTANCE OPERATOR Work Phone: [facility] 11-20-2023 16:08-0500 Heart rate 64 /min Noemi Ruby PRESS SUPERVISOR.DIRECTORY ASSISTANCE OPERATOR Work Phone: [facility] 11-20-2023 16:08-0500 Respiratory rate 20 /min Noemi Ruby PRESS SUPERVISOR.DIRECTORY ASSISTANCE OPERATOR Work Phone: [facility] 11-20-2023 16:08-0500 Systolic blood pressure 118 mm[Hg] Noemi Ruby PRESS SUPERVISOR.DIRECTORY ASSISTANCE OPERATOR Work Phone: [facility] 05-13-2023 16:47-0400 Body height 175.3 cm Vinh Aguilar MD Work Phone: [facility] 05-13-2023 16:47-0400 Body weight 121.56 kg Vinh Aguilar MD Work Phone: [facility] 05-13-2023 16:47-0400 Diastolic blood pressure 84 mm[Hg] Vinh Aguilar MD Work Phone: [facility] 05-13-2023 16:47-0400 Heart rate 72 /min Vinh Aguilar MD Work Phone: [facility] 05-13-2023 16:47-0400 Respiratory rate 20 /min Vinh Aguilar MD Work Phone: [facility] 05-13-2023 16:47-0400 Systolic blood pressure 128 mm[Hg] Vinh Aguilar MD Work Phone: [facility] 03-07-2023 09:33-0400 Body height 175.3 cm Satish Rosas MD Work Phone: [facility] 03-07-2023 09:33-0400 Body weight 117.94 kg Satish Rosas MD Work Phone: [facility] 06-22-2022 09:15-0400 Body height 175.3 cm Hailey Tracie PA-C Work Phone: [facility] 06-22-2022 09:15-0400 Body temperature 96.91 [degF] Hailey Tracie PA-C Work Phone: [facility] 06-22-2022 09:15-0400 Body weight 119.3 kg Hailey Tracie PA-C Work Phone: [facility] 06-22-2022 09:15-0400 Diastolic blood pressure 76 mm[Hg] Hailey Polonia PA-C Work Phone: [facility] 06-22-2022 09:15-0400 Heart rate 78 /min Hailey Polonia PA-C Work Phone: [facility] 06-22-2022 09:15-0400 SaO2% (BldA) [Mass fraction] 95 % Hailey Tracie PA-C Work Phone: [facility] 06-22-2022 09:15-0400 Systolic blood pressure 132 mm[Hg] Hailey Hodges PA-C Work Phone: [facility] 05-04-2022 09:01-0400 Body height 175.3 cm Noemi Older PRESS SUPERVISOR.DIRECTORY ASSISTANCE OPERATOR Work Phone: [facility] 05-04-2022 09:01-0400 Body weight 117.03 kg Noemi Older PRESS SUPERVISOR.DIRECTORY ASSISTANCE OPERATOR Work Phone: [facility] 05-04-2022 09:01-0400 Diastolic blood pressure 68 mm[Hg] Noemi Older PRESS SUPERVISOR.DIRECTORY ASSISTANCE OPERATOR Work Phone: [facility] 05-04-2022 09:01-0400 Heart rate 60 /min Noemi Older PRESS SUPERVISOR.DIRECTORY ASSISTANCE OPERATOR Work Phone: [facility] 05-04-2022 09:01-0400 Respiratory rate 16 /min Noemi Older PRESS SUPERVISOR.DIRECTORY ASSISTANCE OPERATOR Work Phone: [facility] 05-04-2022 09:01-0400 Systolic blood pressure 110 mm[Hg] Noemi Older PRESS SUPERVISOR.DIRECTORY ASSISTANCE OPERATOR Work Phone: [facility] 02-27-2022 14:32-0400 Body height 175.3 cm Vinicius Oliver MD Work Phone: [facility] 02-27-2022 14:32-0400 Body temperature 98.91 [degF] Vinicius Oliver MD Work Phone: [facility] 02-27-2022 14:32-0400 Body weight 122.47 kg Vinicius Oliver MD Work Phone: [facility] 02-27-2022 14:32-0400 Diastolic blood pressure 78 mm[Hg] Vinicius Oliver MD Work Phone: [facility] 02-27-2022 14:32-0400 Heart rate 71 /min Vinicius Oliver MD Work Phone: [facility] 02-27-2022 14:32-0400 SaO2% (BldA) [Mass fraction] 97 % Vinicius Oliver MD Work Phone: [facility] 02-27-2022 14:32-0400 Systolic blood pressure 132 mm[Hg] Vinicius Oliver MD Work Phone: [facility] 02-23-2022 14:52-0400 Body temperature 99.3 [degF] Vinicius Gould APRN.DIRECTORY ASSISTANCE OPERATOR, DNP Work Phone: [facility] 02-23-2022 14:52-0400 Body weight 120.2 kg Vinicius Gould APRN.DIRECTORY ASSISTANCE OPERATOR, DNP Work Phone: [facility] 02-23-2022 14:52-0400 Diastolic blood pressure 70 mm[Hg] Vinicius Gould APRN.DIRECTORY ASSISTANCE OPERATOR, DNP Work Phone: [facility] 02-23-2022 14:52-0400 Heart rate 80 /min Vinicius Gould APRN.DIRECTORY ASSISTANCE OPERATOR, DNP Work Phone: [facility] 02-23-2022 14:52-0400 Respiratory rate 18 /min Vinicius Gould APRN.DIRECTORY ASSISTANCE OPERATOR, DNP Work Phone: [facility] 02-23-2022 14:52-0400 SaO2% (BldA) [Mass fraction] 95 % Vinicius Gould APRN.DIRECTORY ASSISTANCE OPERATOR, DNP Work Phone: [facility] 02-23-2022 14:52-0400 Systolic blood pressure 128 mm[Hg] Vinicius Gould APRN.DIRECTORY ASSISTANCE OPERATOR, [facility] Work Phone: [facility] Encounters Encounter Date Encounter Type Care Provider Facility Start: 08-25-2025 End: 08-25-2025 ambulatory VINH AGUILAR Facility:[facility] Start: 07-07-2025 End: 07-07-[address] Vinh Aguilar MD Work Phone: -[facility] [place] Start: 07-07-2025 End: 07-07-[address] Mari Prescott MD -[facility] [place] Work Phone: Start: 07-07-2025 End: 07-07-2025 ambulatory Mari Prescott Facility:[facility] Start: 05-21-2025 End: 05-21-2025 ambulatory VINH AGUILAR Facility:[facility] Start: 05-21-2025 Encounter for genera l adult medical examination without abnormal findings VINH AGUILAR [facility] Start: 05-10-2025 End: 05-10-[address] Too Latham DO -[facility] Work Phone: Start: 05-10-2025 End: 05-10-[address] Vinh Aguilar MD Work Phone: [facility] Start: 05-03-2025 End: 05-03-[address] Too Latham DO -[facility] Work Phone: Start: 05-03-2025 End: 05-03-[address] Vinh Aguilar MD Work Phone: [facility] Start: 04-26-2025 End: 04-26-[address] Too Latham DO -[facility] Work Phone: Start: 04-26-2025 End: 04-26-[address] Vinh Aguilar MD Work Phone: [facility] Start: 04-12-2025 End: 04-12-[address] Doroteo Villanueva MD -[facility] Start: 04-12-2025 End: 04-12-[address] Vinh Aguilar MD Work Phone: -[facility] Comment on above: Refill Request Start: 04-05-2025 End: 04-05-[address] Vinh Aguilar MD Work Phone: -[facility] [place] Start: 04-05-2025 End: 04-05-[address] Mari Prescott MD -[facility] [place] Work Phone: Start: 04-05-2025 End: 04-05-2025 ambulatory Mari Prescott Facility:[facility] Start: 04-01-2025 End: 04-01-[address] Vinh Aguilar MD Work Phone: [facility] Work Phone: Start: 04-01-2025 End: 04-01-[address] Too Latham DO -Physical Therapy Work Phone: Start: 03-10-2025 End: 03-10-[address] Too Latham DO -[facility] Work Phone: Start: 03-10-2025 End: 03-10-[address] Vinh Aguilar MD Work Phone: [facility] Work Phone: Start: 03-09-[address] Too harrison DO -Physical Therapy Work Phone: Start: 02-23-2025 ambulatory [place] Facility :[facility] Start: 02-23-2025 Non-patient / Non-visit Dr. Too simms DO -[facility] Start: 02-23-2025 End: 02-23-2025 Admission to same day surgery center Dr. Too Latham DO -[facility] Start: 02-23-2025 End: 02-23-[address] Vinh Aguilar MD Work Phone: [facility] Work Phone: Start: 02-11-2025 End: 02-11-[address] Vinh Aguilar MD Work Phone: [facility] Work Phone: Start: 02-11-2025 End: 02-11-[address] Too Latham DO -[facility], [facility] Work Phone: Start: 02-11-2025 End: 02-11-2025 [facility] Start: 02-09-2025 End: 02-09-[address] Vinh Aguilar MD Work Phone: [facility] Work Phone: Start: 02-09-2025 End: 02-09-[address] Mari Prescott MD -Laboratory, [place] Work Phone: Start: 02-08-2025 End: 02-08-[address] Too Latham DO -[facility] Work Phone: Start: 02-08-2025 End: 02-09-2025 ambulatory Mari Prescott Facility:[facility] Start: 02-02-2025 End: 02-02-2025 ambulatory Too Latham Facility:[facility] Start: 02-02-2025 End: 02-02-[address] Too Latham DO -Physical Therapy Work Phone: Start: 02-02-[address] Too harrison DO -Physical Therapy Work Phone: Start: 01-11-2025 End: 01-11-[address] Too Latham DO [facility] Work Phone: Start: 01-11-2025 End: 01-11-2025 [facility] Start: 01-05-2025 Encounter for other preprocedural examination [facility] Start: 12-29-2024 ambulatory [facility] Facility :[facility] Start: 12-29-2024 Non-patient / Non-visit Dr. Too simms DO -[facility] Start: 12-29-2024 End: 12-29-2024 Admission to same day surgery center Dr. Too Latham DO -[facility] Start: 12-29-2024 End: 12-29-[address] Vinh Aguilar MD Work Phone: [facility] Work Phone: Start: 12-21-2024 End: 12-21-2024 ambulatory VINH AGUILAR Facility:[facility] Start: 12-21-2024 End: 12-21-2024 Patient encounter procedure Vinh Aguilar MD Work Phone: [facility] [place] Comment on above: Preoperative examina tion (Primary Dx); Essential hypertension; Primary osteoarthritis of both hips; Primary osteoarthritis of both knees; Inflammatory polyarthropathy of multiple sites (HCC) Start: 12-21-2024 End: 12-21-2024 Preprocedural examination done Vinh Aguilar MD Work Phone: [facility] Work Phone: Start: 12-16-2024 End: 12-16-[address] Too Latham DO -[facility] Work Phone: Start: 12-16-2024 End: 12-16-2024 ambulatory Too Latham Facility:[facility] Start: 12-11-2024 End: 12-11-[address] Vinh Aguilar MD Work Phone: [facility] Work Phone: Start: 12-11-2024 End: 12-11-[address] Too Latham DO -Cat [facility], [facility] Work Phone: Start: 12-11-2024 End: 12-11-2024 ambulatory Too Latham Facility:[facility] Start: 12-07-2024 End: 12-09-2024 Refill Vinh Aguilar MD Work Phone: [facility] [place] Comment on above: Refill Request Start: 12-01-2024 End: 12-01-2024 Refill Vinh Aguilar MD Work Phone: [facility] [place] Comment on above: Refill Request Start: 11-24-2024 End: 11-24-2024 Telephone encounter Vinh Aguilar MD Work Phone: [facility] [place] Comment on above: Pre-Op Exam Start: 11-13-2024 End: 11-13-2024 Telephone encounter Vinh Aguilar MD Work Phone: [facility] [place] Comment on above: Patient Update Start: 11-11-2024 End: 11-11-[address] Mari Prescott MD -Laboratory, [place] Work Phone: Start: 11-11-2024 End: 11-11-2024 [facility] Start: 11-04-2024 End: 11-04-[address] Too Latham DO -[facility] Work Phone: Start: 11-04-2024 End: 11-04-2024 ambulatory Vinh Aguilar Facility:[facility] Start: 09-15-2024 End: 09-15-[address] Mari Prescott MD -Laboratory, [place] Work Phone: Start: 09-15-2024 End: 09-15-2024 [facility] Start: 08-07-2024 End: 08-07-2024 ambulatory [facility] Facility:[facility] Start: 07-27-2024 End: 07-27-2024 ambulatory Vinh Aguilar Facility:[facility] Start: 06-17-2024 End: 06-17-2024 Refill Vinh Aguilar MD Work Phone: [facility] [place] Comment on above: Refill Request Start: 06-08-2024 End: 06-08-2024 Telephone encounter Vnih Aguilar MD Work Phone: [facility] [place] Comment on above: Medication Question Start: 05-29-2024 Telephone encounter Vinh hammond MD Work Phone: [facility] [place] Comment on above: Patient Question Start: 05-20-2024 Telephone encounter Vinh hammond MD Work Phone: [facility] [place] Comment on above: Results Start: 05-15-2024 End: [...] encounter status Vinh Aguilar MD Work Phone: [facility] Work Phone: Start: 05-07-2024 Refill Vinh zapata MD Work Phone: [facility] [place] Comment on above: Refill Request Start: 02-14-2024 Non-patient / Non-visit PA Carlos Rutherford Work Phone: [facility] Start: 02-14-2024 End: 02-14-2024 ambulatory PA Gilda Rutherford Work Phone: [facility] Work Phone: Start: 02-14-2024 End: 02-14-2024 Patient encounter procedure PA Gilda Rutherford Work Phone: [facility], [facility] Work Phone: Start: 02-06-2024 Refill Gilda Vetovit z PA-C Work Phone: Orthopaedics Comment on above: Refill Request Orders Start: 02-03-2024 End: 02-03-2024 Patient encounter procedure Gilda Vetovitz PA-C Work Phone: Orthopa[facility]ics Comment on above: Primary osteoarthrit is of right hip (Primary Dx); Primary osteoarthritis of both knees Start: 02-01-2024 Telephone encounter Vinh hammond MD Work Phone: [facility] [place] Start: 12-02-2023 End: 12-02-2023 Patient encounter procedure Gilda Vetovitz PA-C Work Phone: Orthopa[facility]ics Comment on above: Primary osteoarthrit is of both knees (Primary Dx) Start: 11-25-2023 End: 11-25-2023 Patient encounter procedure Gilda Vetovitz PA-C Work Phone: Orthopaedics Comment on above: Primary osteoarthrit is of both knees (Primary Dx) Start: 11-20-2023 End: 11-20-2023 Patient encounter procedure Noemi Florian Ruby AMAYA Work Phone: [facility] [place] Comment on [...] Obesity, Class III, BMI 40-49.9 (morbid obesity) ([facility]) Start: 05-13-2023 End: 05-13-2023 Patient encounter status Vinh Aguilar MD Work Phone: [facility] Work Phone: Start: 04-22-2023 Refill Vinh zapata MD Work Phone: [facility] [place] Comment on above: Refill Request Start: 03-07-2023 End: 03-07-2023 Patient encounter procedure Satish Rosas MD Work Phone: Orthopaedics Comment on above: Primary osteoarthrit is of both knees (Primary Dx); Gastroesophageal reflux disease, unspecified whether esophagitis present; Primary osteoarthritis of left hip Start: 03-07-2023 End: 03-07-2023 Subsequent hospital visit by physician Montsrerat [facility] [place] Armendariz Work Phone: Radiology Comment on above: Pain in both knees, unspecified chronicity [M25.561, M25.562] Start: 01-14-2023 Refill Vinh zapata MD Work Phone: [facility] [place] Comment on above: Refill Request Start: 11-19-2022 Refill Vinh zapata MD Work Phone: [facility] [place] Comment on above: Refill Request Start: 11-06-2022 Telephone encounter Vinh hammond MD Work Phone: [facility] [place] Comment on above: Patient Question Start: 07-17-2022 [...] 05-04-2022 End: 05-04-2022 Patient encounter procedure Noemi Fung PRESS SUPERVISOR.DIRECTORY ASSISTANCE OPERATOR Work Phone: [facility] [place] Comment on above: Wellness examination (Primary Dx); Need for vaccination Start: 05-04-2022 End: 05-04-2022 Patient encounter status Noemi Older PRESS SUPERVISOR.DIRECTORY ASSISTANCE OPERATOR Work Phone: [facility] [place] Start: 04-06-2022 Telephone encounter Vinh hammond MD Work Phone: [facility] [place] Comment on above: Results Start: 04-04-2022 Refill Lydia Grayson [facility] [place] Start: 03-30-2022 Telephone encounter Hailey lopez PA-C Work Phone: General Surgery Comment on above: 06/04/2022 [facility] Start: 03-17-2022 Refill Vinh zapata MD Work Phone: [facility] Comment on above: Refill Request Start: 02-27-2022 End: 02-27-2022 Patient encounter procedure Vinicius Oliver MD Work Phone: General Surgery Comment on above: Perianal abscess (Pr imary Dx) Start: 02-23-2022 End: 02-23-2022 Office outpatient visit 15 minutes Vinicius Gould APRN.DIRECTORY ASSISTANCE OPERATOR, DNP Work Phone: [facility] [place] Comment on above: Pilonidal cyst (Prim juan antonio Dx); Obesity, Class II, BMI 35-39.9 Start: 02-23-2022 Telephone encounter Albert (Magali) Aimee mari General Surgery Comment on above: Outpatient [place] [facility] Start: 01-15-2022 Refill Vinh zapata MD Work Phone: [facility] [place] Comment on above: Refill Request Colonoscopy order Start: 12-26-2021 Telephone encounter Vinh hammond MD Work Phone: Internal [facility] [place] Comment on above: Medication Problem Start: 05-05-2021 End: 05-05-2021 Subsequent hospital visit by physician Xr [facility] [place] Work Phone: Radiology Comment on above: Hip pain, acute, lef t [M25.552] Procedures Date Procedure Procedure Detail Performing Clinician Start: 04-12-2025 Plain x-ray of pelvi s and lower extremity Dr. Vinh Aguilar MD Work Phone: Start: 02-23-2025 Plain X-ray of hip Dr. Vinh Aguilar MD Work Phone: Start: 02-23-2025 Total replacement of hip Dr. Vinh Aguialr MD Work Phone: Start: 02-11-2025 MRI of [...] umol/Lwith a mean of 396 umol/L.Performed at: [address] [id number] Director: Jamey Garcia PhD, Phone: [phone] Start: 12-11-2024 MRI of lower extremity Dr. Vinh Aguilar MD Work Phone: Start: 11-11-2024 Measurement of renal function Dr. Vinh Aguilar MD Work Phone: Comment on above: GFR Calc Start: 05-15-2024 Adult depression scr eening assessment Vinh Aguilar MD Work Phone: Start: 05-15-2024 Lipid 1996 panel - S darshana or Plasma Vinh Aguilar MD Work Phone: Start: 02-14-2024 Procedure on extremity PA Gilda Vetovitz Work Phone: Start: 02-03-2024 Arthrocentesis aspir &/inj [...] MD Work Phone: Start: 06-04-2022 Colonoscopy Hailey Gra f PA-C Work Phone: Start: 05-04-2022 Adult depression scr eening assessment Noemi Older PRESS SUPERVISOR.DIRECTORY ASSISTANCE OPERATOR Work Phone: Start: 05-05-2021 Radex hip unilateral with pelvis 2-3 views Wendy Johnson PRESS SUPERVISOR.DIRECTORY ASSISTANCE OPERATOR Work Phone: Start: 09-20-2017 Adult depression scr eening assessment Vinh Aguilar MD Work Phone: Start: 07-06-2016 Colonoscopy Vinh Lira MD Work Phone: Plan of Treatment Date Care Activity Detail Author Start: 05-04-2032 Urine microalbumin profile [facility] Start: 05-15-2029 Lipid panel Lipid Screening [facility] Start: 05-13-2028 Lipid 1996 panel - Serum or Plasma Lipid Screening [facility] Start: 05-13-2028 Lipid panel Lipid Screening [facility] Start: 05-13-2028 LIPID SCREEN LIPID SCREEN [facility] Start: 12-22-2027 Diabetes Screening Diabetes Screening [facility] Start: 06-04-2027 Colonoscopy COLONOSCOPY [facility] Start: 06-04-2027 COLORECTAL CANCER SCREENING COLORECTAL CANCER SCREENING [facility] Start: 06-04-2027 Screening for malignant neoplasm of colon [facility] Start: 05-15-2027 Diabetes Screening Diabetes Screening [facility] Start: 03-30-2027 LIPID SCREEN LIPID SCREEN [facility] Start: 03-30-2027 PROSTATE CANCER SCREENING DISCUSSION PROSTATE CANCER SCREENING DISCUSSION [facility] Start: 03-30-2027 Prostate specific antigen measurement Prostate Cancer Screening Discussion [facility] Start: 05-26-2026 LIPID SCREEN LIPID SCREEN [facility] Start: 05-13-2026 DIABETES SCREEN DIABETES SCREEN [facility] Start: 05-13-2026 Diabetes Screening Diabetes Screening [facility] Start: 12-21-2025 Annual PCP Team Chronic Disease Visit Annual PCP Team Chronic Disease Visit [facility] Start: 12-21-2025 BP Controlled (<130/80) BP Controlled (<130/80) [facility] Start: 12-21-2025 Covid-19 Vaccine (3 - Moderna risk series) Covid-19 Vaccine (3 - Moderna risk series) [facility] Comment on above: Postponed from 03/28/2021 (Declined at t his time) Start: 05-21-2025 End: 05-21-2025 Patient encounter procedure 05/21/2025 8:00 AM EDT Office Visit Internal Medicine [place] [address] [place] [address] Vinh Aguilar MD [address] [place] [address] Yearly [facility] Medicine [place] Comment on above: Yearly Start: 05-15-2025 Annual PCP Team Chronic Disease Visit Annual PCP Team Chronic Disease Visit [facility] Start: 05-15-2025 Anxiety Screening Anxiety Screening [facility] Start: 05-15-2025 BP Controlled (<130/80) BP Controlled (<130/80) [facility] in Start: 05-15-2025 Depression Screening Depression Screening [facility] Start: 04-12-2025 Plain x-ray of pelvis and lower extremity HIP, UNI W/ Pelvis 2-3 Views [facility] Start: 04-12-2025 XR Pelvis and Hip Views [facility] Start: 03-30-2025 DIABETES SCREEN DIABETES SCREEN [facility] Start: 02-23-2025 Anesthesia open total hip arthroplasty ANESTH HIP ARTHROPLASTY [facility] Start: 02-23-2025 Arthrp acetblr/prox fem prostc agrft/algrft TOTAL HIP ARTHROPLASTY [facility] Start: 02-23-2025 Plain X-ray of hip Hip Min 2 Views (Portable) [facility] Start: 02-23-2025 XR Hip GE 2 Views [facility] Start: 02-23-2025 Application of ice collar, cap or bag [facility] Start: 02-23-2025 Exercises [facility] Start: 02-23-2025 Incentive spirometry [facility] Start: 02-23-2025 Neurovascular assessment [facility] Start: 02-23-2025 Patient discharge [facility] Start: 02-23-2025 Patient education [facility] Start: 02-23-2025 Provision of activity privileges [facility] Start: 02-23-2025 Recommendation to continue with treatment [facility] Start: 02-23-2025 Referral to service [facility] Start: 02-23-2025 Vital signs measurements [facility] Start: 02-23-2025 Wound care [facility] Start: 02-23-2025 [facility] Start: 02-08-2025 Patient referral [facility] Work Phone: Start: 12-29-2024 Anesthesia open total hip arthroplasty ANESTH HIP ARTHROPLASTY [facility] Start: 12-29-2024 Arthrp acetblr/prox fem prostc agrft/algrft TOTAL HIP ARTHROPLASTY [facility] Start: 12-29-2024 Application of ice collar, cap or bag [facility] Start: 12-29-2024 Exercises [facility] Start: 12-29-2024 Incentive spirometry [facility] Start: 12-29-2024 Neurovascular assessment [facility] Start: 12-29-2024 Patient discharge [facility] Start: 12-29-2024 Patient education [facility] Start: 12-29-2024 Provision of activity privileges [facility] Start: 12-29-2024 Recommendation to continue with treatment [facility] Start: 12-29-2024 Referral to service [facility] Start: 12-29-2024 Vital signs measurements [facility] Start: 12-29-2024 Wound care [facility] Start: 12-29-2024 [facility] Start: 12-21-2024 End: 12-21-2024 Patient encounter procedure 12/21/2024 5:20 PM EDT Office Visit Internal Medicine [place] [address] [place] [address] Vinh Aguilar MD [address] [place] [address] Pre Op - 12/29/24 [facility] [place] Comment on above: Pre Op - 12/29/24 [facility] Start: 11-20-2024 Annual PCP Team Chronic Disease Visit Annual PCP Team Chronic Disease Visit [facility] Start: 11-20-2024 BP Controlled (<130/80) BP Controlled (<130/80) [facility] Start: 11-20-2024 Covid-19 Vaccine () Covid-19 Vaccine () [facility] Comment on above: Postponed from 06/14/2023 (Declined at t his time) Start: 11-18-2024 End: 11-18-2024 Patient encounter procedure 11/18/2024 4:20 PM EST Office Visit Internal Medicine [place] [address] [place] [place] [address] Noemi Beltran, PRESS SUPERVISOR.DIRECTORY ASSISTANCE OPERATOR [address] [place] [address] 6 month follow up [facility] [place] Comment on above: 6 month follow up Start: 08-03-2024 End: 08-03-2024 Patient encounter procedure 08/03/2024 9:00 AM EDT Office Visit Orthopaedics [address] [place] [address] Gilda Rutherford PA-C [address] [place] [address] BRIGITTE KNEE PAIN F/U REQ INJECTIONS [facility]IS[facility] Comment on above: BRIGITTE KNEE PAIN F/U REQ INJECTIONS CORTISO NE Start: 07-01-2024 DIABETES SCREEN DIABETES SCREEN [facility] Start: 06-14-2024 Covid-19 Vaccine ( season) Covid-19 Vaccine ( season) [facility] Start: 06-14-2024 Covid-19 Vaccine ( season) Covid-19 Vaccine ( season) [facility] Start: 06-14-2024 Influenza vaccination Influenza Vaccine (#1) [facility] Start: 06-04-2024 End: 09-03-2024 Ferritin [Mass/volume] in Serum or Plasma FERRITIN Lab Routine Elevated ferritin Expected: 06/04/2024, Expires: 09/03/2024 [facility] Work Phone: Comment on above: Expected: 06/04/2024, Expires: Start: 06-04-2024 End: 09-03-2024 Iron and Iron binding capacity panel - Serum or Plasma IRON AND TIBC Lab Routine Elevated ferritin Expected: 06/04/2024, Expires: 09/03/2024 [facility] Comment on above: Expected: 06/04/2024, Expires: Start: 05-15-2024 End: 08-14-2024 Aldolase [Enzymatic activity/volume] in Serum or Plasma [facility] Comment on above: Expected: 05/15/2024, Expires: Start: 05-15-2024 End: 08-14-2024 C reactive protein [Mass/volume] in Serum or Plasma [facility] Comment on above: Expected: 05/15/2024, Expires: Start: 05-15-2024 End: 08-14-2024 Creatine kinase [Enzymatic activity/volume] in Serum or Plasma [facility] Comment on above: Expected: 05/15/2024, Expires: Start: 05-15-2024 End: 08-14-2024 Erythrocyte sedimentation rate [facility] Work Phone: Comment on above: Expected: 05/15/2024, Expires: Start: 05-15-2024 End: 08-14-2024 Ferritin [Mass/volume] in Serum or Plasma [facility] Comment on above: Expected: 05/15/2024, Expires: Start: 05-15-2024 End: 08-14-2024 Rheumatoid factor [Units/volume] in Serum or Plasma [facility] Comment on above: Expected: 05/15/2024, Expires: Start: 05-15-2024 End: 05-15-2024 Patient encounter procedure 05/15/2024 8:00 AM EDT Office Visit [facility] [place] [address] [place] [address] Vinh Aguilar MD [address] [place] [address] Yearly [facility] [place] Comment on above: Yearly Start: 05-14-2024 End: 08-13-2024 25-hydroxyvitamin D3 [Mass/volume] in Serum or Plasma VITAMIN D 25 HYDROXY Lab Routine Vitamin D deficiency Expected: 05/14/2024 (Approximate), Expires: 08/13/2024 [facility] Work Phone: Comment on above: Expected: 05/14/2024 (Approximate), Expi res: 08/13/2024 Start: 05-14-2024 End: 08-13-2024 CBC panel - Blood by Automated count CBC Lab Routine Essential hypertension Expected: 05/14/2024 (Approximate), Expires: 08/13/2024 [facility] Work Phone: Comment on above: Expected: 05/14/2024 (Approximate), Expi res: 08/13/2024 Start: 05-14-2024 End: 08-13-2024 Comprehensive metabolic 2000 panel - Serum or Plasma COMP METABOLIC PANEL Lab Routine Essential hypertension Expected: 05/14/2024 (Approximate), Expires: 08/13/2024 [facility] Work Phone: Comment on above: Expected: 05/14/2024 (Approximate), Expi res: 08/13/2024 Start: 05-14-2024 End: 08-13-2024 Lipid 1996 panel - Serum or Plasma LIPID PANEL BASIC Lab Routine Hypertriglyceridemia Expected: 05/14/2024 (Approximate), Expires: 08/13/2024 [facility] Work Phone: Comment on above: Expected: 05/14/2024 (Approximate), Expi res: 08/13/2024 Start: 05-13-2024 ANNUAL PCP TEAM CHRONIC DISEASE VISIT ANNUAL PCP TEAM CHRONIC DISEASE VISIT [facility] Start: 05-13-2024 COVID-19 VACCINE (3 - Moderna series) COVID-19 VACCINE (3 - Moderna series) [facility] Comment on above: Postponed from 04/25/2021 (Declined at t his time) Start: 05-13-2024 Influenza vaccination LUNG CANCER SCREENING [facility] Comment on above: Postponed from 2015 (Declined at t his time) Start: 05-13-2024 Screening for malignant neoplasm of lung Lung Cancer Screening [facility] Comment on above: Postponed from 2015 (Declined at t his time) Start: 10-14-2023 Behavioral Health Screening Behavioral Health Screening [facility] Start: 10-14-2023 Depression Assessment Depression Assessment [facility] Start: 06-14-2023 Covid-19 Vaccine () Covid-19 Vaccine () [facility] Start: 06-14-2023 Influenza vaccination [facility] Start: 05-04-2023 Adult depression screening assessment DEPRESSION SCREENING [facility] Start: 05-04-2023 ANNUAL PCP TEAM CHRONIC DISEASE VISIT ANNUAL PCP TEAM CHRONIC DISEASE VISIT [facility] Start: 05-04-2023 BP CONTROLLED (<130/80) BP CONTROLLED (<130/80) [facility] Start: 05-04-2023 COVID-19 VACCINE (3 - Booster for Moderna series) COVID-19 VACCINE (3 - Booster for Moderna series) [facility] Comment on above: Postponed from 07/31/2021 (Declined at t his time) Postponed from 04/25 (Declined at this time) Start: 05-04-2023 COVID-19 VACCINE (3 - Moderna series) COVID-19 VACCINE (3 - Moderna series) [facility] Comment on above: Postponed from 04/25/2021 (Declined at t his time) Start: 05-04-2023 Influenza vaccination LUNG CANCER SCREENING [facility] Comment on above: Postponed from 2015 (Declined at t his time) Start: 04-13-2023 End: 06-13-2023 25-hydroxyvitamin D3 [Mass/volume] in Serum or Plasma VITAMIN D 25 HYDROXY Lab Routine Vitamin D deficiency Expected: 04/13/2023 (Approximate), Expires: 06/13/2023 [facility] Work Phone: Comment on above: Expected: 04/13/2023 (Approximate), Expi res: 06/13/2023 Start: 04-13-2023 End: 06-13-2023 CBC panel - Blood by Automated count CBC Lab Routine Essential hypertension Expected: 04/13/2023 (Approximate), Expires: 06/13/2023 [facility] Work Phone: Comment on above: Expected: 04/13/2023 (Approximate), Expi res: 06/13/2023 Start: 04-13-2023 End: 06-13-2023 Comprehensive metabolic 2000 panel - Serum or Plasma COMP METABOLIC PANEL Lab Routine Essential hypertension Expected: 04/13/2023 (Approximate), Expires: 06/13/2023 [facility] Work Phone: Comment on above: Expected: 04/13/2023 (Approximate), Expi res: 06/13/2023 Start: 04-13-2023 End: 06-13-2023 Lipid 1996 panel - Serum or Plasma LIPID PANEL BASIC Lab Routine Hypertriglyceridemia Expected: 04/13/2023 (Approximate), Expires: 06/13/2023 [facility] Work Phone: Comment on above: Expected: 04/13/2023 (Approximate), Expi res: 06/13/2023 Start: 04-13-2023 End: 06-13-2023 PSA/PROSTSPECAG SCRN PSA/PROSTSPECAG SCRN Lab Routine Screening for prostate cancer Expected: 04/13/2023 (Approximate), Expires: 06/13/2023 [facility] Work Phone: Comment on above: Expected: 04/13/2023 (Approximate), Expi res: 06/13/2023 Start: 02-23-2023 ANNUAL PCP TEAM CHRONIC DISEASE VISIT ANNUAL PCP TEAM CHRONIC DISEASE VISIT [facility] Start: 02-23-2023 BP CONTROLLED (<130/80) BP CONTROLLED (<130/80) [facility] Start: 11-29-2022 ANNUAL PCP TEAM CHRONIC DISEASE VISIT ANNUAL PCP TEAM CHRONIC DISEASE VISIT [facility] Start: 11-29-2022 BP CONTROLLED (<130/80) BP CONTROLLED (<130/80) [facility] Start: 10-14-2022 DEPRESSION ASSESSMENT DEPRESSION ASSESSMENT [facility] Start: 06-14-2022 Influenza vaccination INFLUENZA (#1) [facility] Start: 10-14-2021 DEPRESSION ASSESSMENT DEPRESSION ASSESSMENT [facility] Start: 10-06-2021 PROSTATE CANCER SCREENING DISCUSSION PROSTATE CANCER SCREENING DISCUSSION [facility] Start: 07-31-2021 COVID-19 VACCINE (3 - Booster for Moderna series) COVID-19 VACCINE (3 - Booster for Moderna series) [facility] Start: 07-06-2021 Colonoscopy COLONOSCOPY [facility] Start: 07-06-2021 COLORECTAL CANCER SCREENING COLORECTAL CANCER SCREENING [facility] Start: 05-04-2021 Urine microalbumin profile DTAP,TDAP,TD (2 - Td or Tdap) [facility] Start: 2020 Influenza vaccination LUNG CANCER SCREENING [facility] Start: 09-20-2018 Adult depression screening assessment DEPRESSION SCREENING [facility] Start: 2015 Influenza vaccination LUNG CANCER SCREENING [facility] Start: 2015 Pneumococcal Vaccine: 50+ (1 of 1 - PCV) Pneumococcal Vaccine: 50+ (1 of 1 - PCV) [facility] Start: 2010 COLOGUARD (FIT-DNA) COLOGUARD (FIT-DNA) [facility] Start: [address] COLONOGRAPHY [facility] Start: 2010 FECAL OCCULT BLOOD FECAL OCCULT BLOOD [facility] Start: 2010 Screening for malignant neoplasm of colon [facility] Start: 2010 SIGMOIDOSCOPY SIGMOIDOSCOPY [facility] Start: 1984 Pneumococcal Vaccine: 50+ (1 of 2 - PCV) Pneumococcal Vaccine: 50+ (1 of 2 - PCV) [facility] Start: 1983 Anxiety Screening Anxiety Screening [facility] Start: 1983 BP CONTROLLED (<130/80) BP CONTROLLED (<130/80) [facility] in Start: 1983 Depression Screening Depression Screening [facility] Start: 1965 HEPATITIS B (1 of 3 - 3-dose series) HEPATITIS B (1 of 3 - 3-dose series) [facility] Electrocardiographic procedure [facility] End: 03-04-2025 Guidance for injection of Hip IMAGING GUIDED ILIOPSOAS BURSA INJECTION RIGHT Radiology Routine Primary osteoarthritis of right hip 1 Occurrences starting 02/03/2024 until 03/04/2025 [facility] Work Phone: Comment on above: 1 Occurrences starting 02/03/2024 until 03/04/2025 End: 03-07-2025 Guidance for injection of Hip IMAGING GUIDED HIP INJECTION RIGHT Radiology Routine Primary osteoarthritis of right hip 1 Occurrences starting 02/06/2024 until 03/07/2025 [facility] Work Phone: Comment on above: 1 Occurrences starting 02/06/2024 until 03/07/2025 Patient referral [facility] Work Phone: End: 01-15-2023 Screening colonoscopy COLONOSCOPY SCREENING Endoscopy Routine Special screening for malignant neoplasms, colon 1 Occurrences starting 01/15/2022 until 01/15/2023 [facility] Work Phone: Comment on above: 1 Occurrences starting 01/15/2022 until 01/15/2023 [facility] Immunizations Immunization Date Immunization Notes Care Provider [facility] 07-28-2024 influenza virus vaccine, unspecified formulation Vinh Aguilar MD Work Phone: [facility] 07-30-2023 influenza, seasonal, injectable Noemi Ruby PRESS SUPERVISOR.DIRECTORY ASSISTANCE OPERATOR Work Phone: [facility] Work Phone: 07-30-2023 influenza virus vaccine, unspecified formulation Vinh Aguilar MD Work Phone: [facility] 05-04-2022 tetanus and diphther ia toxoids, adsorbed, preservative free, for adult use (2 Lf of tetanus toxoid and 2 Lf of diphtheria toxoid) Noemi Older PRESS SUPERVISOR.DIRECTORY ASSISTANCE OPERATOR Work Phone: [facility] 07-28-2021 influenza, injectabl e, quadrivalent, contains preservative Vinh Aguilar MD Work Phone: [facility] Work Phone: 07-28-2021 influenza virus vaccine, unspecified formulation [employer]r [employer] Work Phone: [facility] 04-18-2021 zoster vaccine recombinant Vinh Aguilar MD Work Phone: [facility] 09-22-2020 zoster vaccine recombinant Vinh Aguilar MD Work Phone: [facility] 08-15-2016 influenza, injectabl e, quadrivalent, contains preservative Vinh Aguilar MD Work Phone: [facility] Work Phone: 07-14-2015 influenza virus vaccine, unspecified formulation Vinh Aguilar MD Work Phone: [facility] Work Phone: 05-04-2011 tetanus toxoid, reduced diphtheria toxoid, and acellular pertussis vaccine, adsorbed Vinh Aguilar MD Work Phone: [facility] Work Phone: Payers Date Payer Category Payer Self-pay [id number] 2023 [employer] Blue [employer] BLUE ACCE PPO [id number] 2023 Unknown [id number] 2015 Unknown MMO MMO MHS [id number] 2015-Present [phone] [address] [address] [place] [address] Indemnity [id number] 2015 Unknown [id number]. [id number] Unknown BC ANTHEM 332 COMM CHOICE YR [id number] Unknown MED [employer] [place]/ PRO CLAIMS [id number] Unknown MED M[employer] TPA [id number] Unknown [id number] 2.16.840.1.926866.3.579.2. 462 Unknown [id number] 2.16840.1.710373.3.579.2. 462 Unknown [id number] 2.16.840.1.026583.3.579.2. 462 Unknown [id number] 2..840.1.289804.3.579.2. 462 Unknown [id number] 2..840.1.173597.3.579.2. 462 Unknown [id number] 2.840.1.416318.3.579.2. 462 Unknown [id number] 2.840.1.906819.3.579.2. 462 Unknown [id number] 2.840.1.890300.3.579.2. 462 Unknown [id number] 2.840.1.254653.3.579.2. 462 Unknown [id number] 2.840.1.555086.3.579.2. 462 Unknown [id number] 2.840.1.260578.3.579.2. 462 Unknown [id number] 2.16.840.1.710781.3.579.2. 462 Unknown [id number] 2.840.1.359072.3.579.2. 462 Unknown [id number] 2.16.840.1.057077.3.579.2. 462 Unknown [id number] 2.16840.1.331232.3.579.2. 462 Unknown [id number] 2.16840.1.889716.3.579.2. 462 Unknown [id number] 2.16.840.1.357576.3.579.2. 462 Unknown [id number] 2.16.840.1.746676.3.579.2. 462 Unknown [id number] 2.16.840.1.775901.3.579.2. 462 Unknown [id number] 2.16.840.1.067559.3.579.2. 462 Unknown [id number] 2.16.840.1.291048.3.579.2. 462 Unknown [id number] 2.16.840.1.073317.3.579.2. 462 Unknown [id number] 2.16.840.1.541602.3.579.2. 462 Unknown [id number] 2.16.840.1.255397.3.579.2. 462 Unknown [id number] 2.16.840.1.591916.3.579.2. 462 Unknown [id number] 2.16.840.1.322046.3.579.2. 462 Unknown [id number] 2.16.840.1.321482.3.579.2. 462 Social History Date Type Detail Facility Start: 05-04-2022 End: 02-10-2025 Tobacco smoking status NHIS Ex-smoker [facility] Work Phone: Start: 05-14-1979 End: 05-14-2009 History of tobacco use Current smoker [facility] Work Phone: Start: 11-30-2021 End: 12-22-2024 Alcohol intake Current drinker of alcohol (finding) [facility] Start: 08-23-2020 History SDOH Alcohol Frequency 3 [facility] Start: 08-23-2020 End: 09-22-2020 History SDOH Alcohol Std Drinks 1 [facility] Start: 08-23-2020 End: 09-22-2020 History SDOH Social Connections Get Together 2 [facility] Start: 08-23-2020 History SDOH Financial 5 [facility] Start: 08-23-2020 Education 12 [facility] Start: 1965 Sex Assigned At Not on file [facility] Start: 04-05-2021 End: 06-22-2022 Exposure to SARS-CoV-2 (event) Not sure [facility] Start: 05-14-1979 End: 05-14-2009 History of tobacco use Cigarette Smoker [facility] Work Phone: Start: 05-04-2022 End: 03-07-2023 Cigarettes smoked current (pack per day) - Reported 1 [facility] Start: 05-04-2022 End: 12-21-2024 Tobacco use and exposure Smokeless tobacco non-user [facility] Work Phone: Start: 06-04-2022 Tobacco Comment states smokes cigar occasionally [facility] Start: 09-22-2020 End: 03-07-2023 Tobacco use panel [facility] Adult Depression Screening Assessment 0 [facility] Do you belong to any clubs or organizations such as hinduism groups, Daylifes, [employer] or athletic groups, or school groups? No [facility] Are you now , , , , never or living with a partner? [facility] How often to you hav e a drink containing alcohol? 2-4 times a month [facility] How many standard dr inks containing alcohol do you have on a typical day? 1 or 2 [facility] How often do you hav e 6 or more drinks on 1 occasion? Never [facility] Do you feel stress - tense, restless, nervous, or anxious, or unable to sleep at night because your mind is troubled all the time - these days [OSQ] Not at all [facility] (I/We) worried harley er (my/our) food would run out before (I/we) got money to buy more. Never true [facility] Start: 10-28-2023 Alcohol Comment 6 beers a week [facility] Start: 12-13-2019 Tobacco smoking status NHIS Unknown if ever smoked [facility] Start: 1965 Sex Assigned At Male [facility] Start: 12-25-2024 End: 12-29-2024 Sex Male (finding) [facility] Medical Equipment Procedure Code Equipment Code Equipment Origin al Text Equipment Identifier Dates Arthroplasty, hip, total, using robot-assisted navigation ([id number]) Ceramic femoral head prosthesis [id number] FDA Start: 12-29-2024 Arthroplasty, hip, total, using robot-assisted navigation ([id number]) Coated hip femur prosthesis, modular ()[id number] FDA Start: 12-29-2024 Arthroplasty, hip, total, using robot-assisted navigation ([id number]) Non-constrained polyethylene acetabular liner ()[id number] FDA Start: 12-29-2024 Arthroplasty, hip, total, using robot-assisted navigation ([id number]) Acetabular shell ()[id number] FDA Start: 12-29-2024 Arthroplasty, hip, total, using robot-assisted navigation ([id number]) Orthopaedic bone screw, non-bioabsorbable, sterile ()[id number] FDA Start: 12-29-2024 Arthroplasty, hip, total, using robot-assisted navigation ([id number]) Ceramic femoral head prosthesis ()[id number] FDA Start: 02-23-2025 Arthroplasty, hip, total, using robot-assisted navigation ([id number]) Coated hip femur prosthesis, modular ()[id number] FDA Start: 02-23-2025 Arthroplasty, hip, total, using robot-assisted navigation ([id number]) Non-constrained polyethylene acetabular liner ()[id number] [id number] FDA Start: 02-23-2025 Arthroplasty, hip, total, using robot-assisted navigation ([id number]) Acetabular shell ()[id number] FDA Start: 02-23-2025 Arthroplasty, hip, total, using robot-assisted navigation ([id number]) Orthopaedic bone screw, non-bioabsorbable, sterile ()[id number] W2 FDA Start: 02-23-2025 Goals Date Patient Goal Desired Activity /State Functional Status Date Assessment Result Facility 12-29-2024 Functional status Ambulates;Bath room Privilege [facility] Work Phone: 12-21-2024 Total score [AUDIT-C] 2 12/22/19 25 6:08 PM EDT Vinh Aguilar MD [facility] 05-17-2014 Are you deaf, or do you have serious difficulty hearing No 05/17/2014 3:19 PM EDT Dinora Carlson MA No [facility] 05-17-2014 Are you blind, or do you have serious difficulty seeing, even when wearing glasses No 05/17/2014 3:19 PM EDT Dinora Carlson MA No [facility] 05-17-2014 Do you have serious difficulty walking or climbing stairs Yes 05/17/2014 3:19 PM EDT Dinora Carlson MA Yes [facility] 05-17-2014 Do you have difficul ty dressing or bathing No 05/17/2014 3:19 PM EDT Dinora Carlson MA No [facility] 05-17-2014 Because of a physica l, mental, or emotional condition, do you have difficulty doing errands alone such as visiting a physician's office or shopping No 05/17/2014 3:19 PM EDT Dinora Carlsno MA No [facility] Mental Status Date Assessment Result Facility 02-23-2025 Cognitive function Level Of Cons ciousness Awake;Alert [facility] Work Phone: 02-23-2025 Cognitive function Voice/Name [facility] Work Phone: 12-29-2024 Cognitive function Voice/Name [facility] Work Phone: 05-17-2014 Because of a physica l, mental, or emotional condition, do you have serious difficulty concentrating, remembering, or making decisions No 05/17/2014 3:19 PM EDT Dinora Carlson MA No [facility] Clinical Notes 05-17-2014 to 08-25-2025 Note Date & Type Note Facility 08-25-2025 Note HNO ID: [id number] Author: ?, ?, ? Service: ? Author Type: Licensed Nurse Type: Progress Notes Filed: 08/25/2025 11:41 Note Text: Patient presents for Flu vaccine. Denies any problems at this time. Tolerated injection well. Mai Flores LPN [facility] 05-21-2025 Note HNO ID: [id number] Author: VINH AGUILAR MD Service: ? Author [...] every 6 hours as needed for Pain. [place]-3 Fatty Acids (FISH OIL) 500 mg cap [...] Mood and Affec (more content not included)... [facility] 05-10-2025 Progress note [facility] 05-10-2025 Progress note Note Date/Time May 10, 2025 9:27am [facility] [address] [place] [address] OFFICE VISIT Date of Service: 05/10/25 MR#: [id number] Acct: [id number] Name: MILES TURNER Rep #: [id number] : 1965 Provider: Dr. Marcus Latham, Age/Sex: 59/M Location: [facility].IGOR Status: Signed Intake Vital Signs 04/26/25 08:25 [...] mg tablet 600 mg PO BIDAC 01/08/18 History omeprazole 40 mg capsule,delayed 40 mg [...] mcg (1,000 unit) tablet (Vitamin D3) omega 7-pqk-yle-fish oil 1,200 mg 1 cap PO DAILY [...] Performing Provider: Too Latham DO Performing Location: [facility] Administered by: Too Latham DO on 05/10/25 09:08 Dose Route Admin Location Dispensed Lot Number Expiration Date ND Normalizer 20 mg intra-articular Right knee 2 mL [id number] 06/25/26 [address]-9 [employer] Euflexxa 10 mg/mL (mw 2.4-3.6 million) intra-articular syringe Performing Provider: Too Latham DO Performing Location: [facility] Administered by: Too Latham DO on 05/10/25 09:11 Dose Route Admin Location Dispensed Lot Number Expiration Date ND Normalizer 20 mg intra-articular left knee 2 mL [id number] 06/25/26 [address]-4 [employer] Supplemental Info 02/23/2025 right total [...] 06/01/2024 x-ray pelvis: Advanced bilateral hip arthrosis [id number] with bony erosion large cystic changes of the femoral head and acetabulum Coding Level of Care Code Attention Gail Diagnoses Bilateral primary osteoarthritis of knee M17.0 Assessment and Plan Assessment and Plan (1) Bilateral primary osteoarthritis of knee: Status: Acute Orders: Orders Euflexxa Injection Today Euflexxa Injection Today Plan Third bilateral knee Euflexxa injection given today. He can follow-up on an as-needed basis. Clinical Quality Measures Falls Risk Screening/Assistive Devices Have you fallen in the past year?: No 07/926 <Electronically signed by Too Martínez o DO> Date _ Too Latham DO Cosigner Signature: Date (if applicable) CC: ~ [facility] [employer] Work Phone: [phone] Telephone encounter Note* Telephone Encounter - Linette [...] Please advise. Thank you. Linette Tate MA. [facility]06-30-2025 Miscellaneous Notes* Telephone Encounter - Linette [...] Thank you. Casandra Egan. [facility] Tele[facility] encounter Note * Telephone Encounter [...] [facility] and they did not transfer these medications over Please advise. Thank you. Casandra Egan. [facility]06-30-2025 Evaluation note* Diagnosis Onset Date Resolution Status Admit Date Orthopedic aftercare acute April 12, 2025 8:04am Bilateral primary osteoarthr itis of knee acute April 26, 2025 8:08am Bilateral primary osteoarthr itis of knee acute May 03, 2025 8:36am Bilateral primary osteoarthr itis of knee acute May 10, 2025 8:52am [facility] Work Phone: 1(678) 471-258606-19-2025 Discharge summary Author Simone Mayers [facility] Note Date/Time April 01, 2025 7:00 pm [facility] Physical Therapy [facility] [place] [address] / REHABILITATION SERVICES DISCHARGE SUMMARY MR#: [id number] Acct: [id number] Name: MILES TURNER Rep #: [id number] : 1965 59 From: Simone Us, Cert. MDT, OCS Referring Dr.: Dr. Too Latham, DO Status: REG RCR Insurance: AN[employer] S[employer] PAY INSURANCE Discharge Summary D/C summary: [...] please feel free to call me at [phone]. Thank you for the referral of thispatient. Sincerely, Simone Mayers PT, Cert MDT, OCS Balance/Gait/Functional tests Balance/Special Test Scores Lower Extremity Functional Score: 61 TUG Test Time Seconds: 23.25 Tug Test: 20-30sec.=variable mobility WOMAC Total Score: 8 WOMAC Percentage: 91.6700 Improvement % Improvement: 90 <Electronically signed by Siomne Mayers PT, Cert. MIREYA, OCS> 04/01/25 1201 CC: Dr. Too Latham DO; Dr. Vinh Aguilar MD ~ JLLopez Signed [facility] Work Phone: 1(608) 644-353706-19-2025 Discharge summary [facility] Physical Therapy [facility] [address] [place] [address] / REHABILITATION SERVICES DISCHARGE SUMMARY MR#: [id number] Acct: [id number] Name: MILES TURNER Rep #: [id number] : 1965 59 From: Cert. MIREYA Rivas, OCS Referring Dr.: Dr. Too Latham DO [...] please feel free to call me at [phone]. Thank you for the referral of thispatient. Sincerely, Simone Mayers, PT, Cert MDT, OCS Balance/Gait/Functional tests Balance/Special Test Scores Lower Extremity Functional Score: 61 TUG Test Time Seconds: 23.25 Tug Test: 20-30sec.=variable mobility WOMAC Total Score: 8 WOMAC Percentage: 91.6700 Improvement % Improvement: 90 04/01/25 1201 CC: Dr. Too Latham DO; Dr. Vinh Aguilar MD ~ JLA Signed [facility]05-13-2025 Consult note [facility] Medical Records Department [address] [address] Anesthesia Postop Eval I 02/23/25 1344 MR#: [id number] Acct: [id number] Name: MILES TURNER Rep #:[id number] : 1965 59 From: [place] CURRICULUM DEVELOPMENT COORDINATOR PCP: Dr. Vinh Aguilar MD Status:R EG [facility] Y Race: C Location: [place] [address] Anesthesia: Postop Eval I Current Vital Signs [...] Eval 1 completed: Yes 02/23/25 1344 c CURRICULUM DEVELOPMENT COORDINATOR> Date _ [place] CURRICULUM DEVELOPMENT COORDINATOR Cosigner Signature: Date CC: ~ Signed [facility]05-13-2025 Consult note [facility] Medical Records Department [address] [place] [address] Anesthesia Postop Eval II 02/23/25 1402 MR#: [id number] Acct: [id number] Name: MILES TURNER Rep #:[id number] : 1965 59 From: Vinicius Fischer PCP: Dr. Vinh Aguilar MD Status:R [facility] Y Race: C Location: [facility]- Anesthesia Postop Eval I Sum Postop Eval Completion status Anesthesia document: Postop Eval 1 completed: Yes Anesthesia Postop Eval I Summary Anesthesia Postop Eval I Summary: Anesthesia Postop Eval I: Assessment Summary Airway patent Yes 02/23/25 13:44 CURRICULUM DEVELOPMENT COORDINATOR.LMIL Spontaneous unlabored Yes 02/23/25 13:44 CURRICULUM DEVELOPMENT COORDINATOR.LMIL respirations Mental status Awake,Calm 02/23/25 13:44 CURRICULUM DEVELOPMENT COORDINATOR.LMIL nausea No 02/23/25 13:44 CURRICULUM DEVELOPMENT COORDINATOR.LMIL Vomiting No 02/23/25 13:44 CURRICULUM DEVELOPMENT COORDINATOR.LMIL Anesthesia Postop Eval I: Fluid Summary Crystalloid volume administer 1,800 02/23/25 13:44 CURRICULUM DEVELOPMENT COORDINATOR.LMIL (ml) Colloids volume administered ( ml) Blood Product volume administered (ml) Total IV fluid infused 1,800 02/23/25 13:44 CURRICULUM DEVELOPMENT COORDINATOR.LMIL Anesthesia Postop Eval I: Summary Notes Anesthesia Complication No 02/23/25 13:44 CURRICULUM DEVELOPMENT COORDINATOR.LMIL Anesthesia Complication Comment: Post-operative progress note Anesthesia: Postop Eval II Evaluation Mental status: Awake and Calm Pain Level: 4 nausea: No Vomiting: No Complications Anesthesia Complication: No 02/23/25 1402 MD> Date _ Vinicius Carlson MD Cosigner Signature: Date CC: ~ Signed [facility]05-13-2025 History and physical note [facility] Medical Records Department [address] [place] [address] History & Physical Exam 02/23/25 1020 MR#: [id number] Acct: [id number] Name: MILES TURNER Rep #:[id number] : 1965 59 From: Too Latham DO PCP: Dr. Vinh Aguilar MD Status:R [facility] Location: [place] [address] History and Physical Date of Admission: 02/23/25 [facility] [address] [place] [address] OFFICE VISIT Date of Service: 02/08/25 MR#: [id number] Acct: [id number] Name: MILES TURNER Rep #: [id number] : 1965 Provider: Dr. Too Latham DO Age/Sex: 59/M Location: [facility] Status: Signed Intake Vital Signs 11/04/2514:56 01/11/2510:47 [...] leg. He had an injection with the [facility] in the hip about a year [...] 06/01/2024 x-ray pelvis: Advanced bilateral hip arthrosis btic-vr-lkbo with bony erosion large cystic changes of [...] Latham DO; Dr. Vinh Aguilar MD~ Signed [facility]05-13-2025 History and physical note [facility] Medical Records Department [address] [place] [address] History & Physical Exam 02/23/25 1109 MR#: [id number] Acct: [id number] Name: MILES TURNERT Rep #:[id number] : 1965 59 From: Too Latham DO PCP: Dr. Vinh Aguilar MD Status:[facility] Location: [place] [address] History and Physical Date of Admission: 02/23/25 [facility] Medical Records Department [address] [place] [address] History & Physical Exam 02/23/25 1020 MR#: [id number] Acct: [id number] Name: MILES TURNER BRENDAN Rep #: [id number] : 1965 59 From: Too Latham DO PCP: Dr. Vinh Aguilar MD Status: [facility] Location: [place] [address] History and Physical Date of Admission: 02/23/25 [facility] [address] [place] [address] OFFICE VISIT Date of Service: 02/08/25MR#: [id number] Acct: [id number] Name: MILES TURNER Rep #: [id number] : 1965 Provider: Dr. Too Latham DO Age/Sex: 59/M Location: [facility] Status: Signed Intake Vital Signs 11/04/2514:56 01/11/2510:47 [...] leg. He had an injection with the [facility] in the hip about a year [...] 06/01/2024 x-ray pelvis: Advanced bilateral hip arthrosis bxek-ru-ccpd with bony erosion large cystic changes of [...] Latham DO; Dr. Vinh Aguilar MD~ Signed [facility]05-13-2025 Consult note Author Vinicius Carlson [facility] Note Date/Time February 23, 2025 5:30p [facility] Medical Records Department [address] [place] [address] Anesthesia Postop Eval II 02/23/25 1402 MR#: [id number] Acct: [id number] Name: MILES TURNER Rep #:[id number] : 1965 59 From: Vinicius Fischer PCP: Dr. Vinh Aguilar MD Status:R EG SDC Y Race: C Location: [place] [address] Anesthesia Postop Eval I Sum Postop Eval Completion status Anesthesia document: Postop Eval 1 completed: Yes Anesthesia Postop Eval I Summary Anesthesia Postop Eval I Summary: Anesthesia Postop Eval I: Assessment Summary Airway patent Yes 02/23/25 13:44 CURRICULUM DEVELOPMENT COORDINATOR.LMIL Spontaneous unlabored Yes 02/23/25 13:44 CURRICULUM DEVELOPMENT COORDINATOR.LMIL respirations Mental status Awake,Calm 02/23/25 13:44 CURRICULUM DEVELOPMENT COORDINATOR.LMIL nausea No 02/23/25 13:44 CURRICULUM DEVELOPMENT COORDINATOR.LMIL Vomiting No 02/23/25 13:44 CURRICULUM DEVELOPMENT COORDINATOR.LMIL Anesthesia Postop Eval I: Fluid Summary Crystalloid volume administer 1,800 02/23/25 13:44 CURRICULUM DEVELOPMENT COORDINATOR.LMIL (ml) Colloids volume administered ( ml) Blood Product volume administered (ml) Total IV fluid infused 1,800 02/23/25 13:44 CURRICULUM DEVELOPMENT COORDINATOR.LMIL Anesthesia Postop Eval I: Summary Notes Anesthesia Complication No 02/23/25 13:44 CURRICULUM DEVELOPMENT COORDINATOR.LMIL Anesthesia Complication Comment: Post-operative progress note Anesthesia: Postop Eval II Evaluation Mental status: Awake and Calm Pain Level: 4 nausea: No Vomiting: No Complications Anesthesia Complication: No 02/23/25 1402 <Electronically signed by Vinicius Carlson MD> Date _ Vinicius Carlson MD Cosigner Signature: Date CC: ~ Signed [facility] Work Phone: 1(350) 339-976305-13-2025 Consult note Author [facility] Note Date/Time February 23, 2025 5:30p [facility] Medical Records Department [address] [place] [address] Anesthesia Postop Eval I 02/23/25 1344 MR#: [id number] Acct: [id number] Name: MILES TURNER Rep #:[id number] : 1965 59 From: Magdalena Beach CRNA PCP: Dr. Vinh Aguilar MD Status:R [facility] Y Race: C Location: [place] [address] Anesthesia: Postop Eval I Current Vital Signs [...] 02/23/25 1344 <Electronically signed by Magdalena payne CRNA> Date _ Magdalena Nanceigner Signature: Date CC: ~ Signed [facility] Work Phone: 1(159) 367-854005-13-2025 Discharge summary Author Too Noa [facility] Note Date/Time February 23, 2025 1:30p m [facility] Medical Records Department [address] [place] [address] Instructions for Home/Discharge Instructions 02/23/25 1327 MR#: [id number] Acct: [id number] Name: MILES TURNER Rep #:[id number] : 1965 59 From: Too Latham DO PCP: Dr. Vinh Aguilar MD Status:R [facility] Discharge Instructions Diet Discharge Diet: No restrictions [...] Care Provider: Vinh Aguilar Instructions Print Language: Chadian Discharge Orders/Prescriptions Prescriptions: New acetaminophen 500 mg [...] MG tablet 600 mg PO BIDAC omega 3-qob-tlk-fish oil [Fish Oil] 1,200 (144-216) mg capsule [...] CC: Dr. Vinh Aguilar MD ~ Signed [facility] Work Phone: 1([phone]) 677-446305-13-2025 Discharge summary [facility] Medical Records Department [address] [place] [address] Instructions for Home/Discharge Instructions 02/23/25 1327 MR#: [id number] Acct: [id number] Name: MILES TURNER Rep #:[id number] : 1965 59 From: Too Latham DO PCP: Dr. Vinh Aguilar MD Status:R EG [facility] Discharge Instructions Diet Discharge Diet: No restrictions [...] Care Provider: Vinh Aguilar Instructions Print Language: Chadian Discharge Orders/Prescriptions Prescriptions: New acetaminophen 500 mg [...] MG tablet 600 mg PO BIDAC omega 0-ycm-jqc-fish oil [Fish Oil] 1,200 (144-216) mg capsule [...] can be placed): Home, Self Care 02/23/25 1330[facility] CC: Dr. Vinh Aguilar MD ~ Signed [facility]05-13-2025 History and physical note [facility] Note Date/Time February 23, 2025 5:30p m [facility] Medical Records Department [address] [place] [address] History & Physical Exam 02/23/25 1109 MR#: [id number] Acct: [id number] Name: MILES TURNER Rep #:[id number] : 1965 59 From: Too Latham DO PCP: Dr. Vinh Aguilar MD Status:R [facility] Location: [place] [address] History and Physical Date of Admission: 02/23/25 [facility] Medical Records Department [address] [place] [address] History & Physical Exam 02/23/25 1020 MR#: [id number] Acct: [id number] Name: MILES TURNER Rep #: [id number] : 1965 59 From: Too Latham DO PCP: Dr. Vinh Aguilar MD Status: REG [facility] Location: [place] [address] History and Physical Date of Admission: 02/23/25 [facility] [address] [place] [address] OFFICE VISIT Date of Service: 02/08/25MR#: [id number] Acct: [id number] Name: MILES TURNER Rep #: [id number] : 1965 Provider: Dr. Too Latham DO Age/Sex: 59/M Location: [facility] [place] [facility] Status: Signed Intake Vital Signs 11/04/2514:56 01/11/2510:47 [...] leg. He had an injection with the [facility] in the hip about a year [...] 06/01/2024 x-ray pelvis: Advanced bilateral hip arthrosis xmpr-mm-rzyf with bony erosion large cystic changes of [...] Latham DO; Dr. Vinh Aguilar MD~ Signed [facility] Work Phone: 1(125) 409-196305-13-2025 History and physical note Author Too Latham [facility] Note Date/Time February 23, 2025 5:30p m [facility] Medical Records Department [address] [place] [address] History & Physical Exam 02/23/25 1020 MR#: [id number] Acct: [id number] Name: MILES TURNER Rep #:[id number] : 1965 59 From: Too Latham DO PCP: Dr. Vinh Aguilar MD Status:[facility] Location: [place] [address]- History and Physical Date of Admission: 02/23/25 [facility] [address] [place] [address] OFFICE VISIT Date of Service: 02/08/25 MR#: [id number] Acct: [id number] Name: MILES TURNER Rep #: [id number] : 1965 Provider: Dr. Too Latham DO Age/Sex: 59/M Location: [facility] Status: Signed Intake Vital Signs 11/04/2514:56 01/11/2510:47 [...] leg. He had an injection with the [facility] in the hip about a year [...] 06/01/2024 x-ray pelvis: Advanced bilateral hip arthrosis bdrd-cq-gatq with bony erosion large cystic changes of [...] Latham DO; Dr. Vinh Aguilar MD~ Signed [facility] Work Phone: 1(557) 994-294105-13-2025 Consult note Author Vinicius Carlson [facility] Note Date/Time February 23, 2025 9:51a [facility] Medical Records Department [address] [place] [address] Pre-Anesthesia Evaluation 02/23/25 0943 MR#: [id number] Acct: [id number] Name: MILES TURNER Rep #:[id number] : 1965 59 From: Vinicius Fischer PCP: Dr. Vinh Aguilar MD Status:R EG [facility] Y Race: C Location: [place] [address] ASA Classification* ASA Classification ASA Classification: 2 [...] Assisted, ERAS Anesthesia History Anesthesia History - supply chain analyst: Anesthesia History - supply chain analyst Hx Hospitalization No 02/10/25 09:12 Any Problems [...] take am of surgery PONV PONV - supply chain analyst: PONV - supply chain analyst Female No 02/10/25 09:12 HX of Motion [...] 02/23/25 08:40 Respiratory Assessment Respiratory Assessment - supply chain analyst: Respiratory Tract Infection Hx - supply chain analyst Hx Respiratory Tract Infection No 02/10/25 09:12 STOP Sleep Apnea STOP Sleep Apnea - supply chain analyst: STOP Sleep Apnea - supply chain analyst Hx Hypertension Yes: CONTROLLED ON MED 02/10/25 [...] Tobacco Use History Tobacco Use History - supply chain analyst: Tobacco Use History - supply chain analyst Tobacco Use Smoking Status Former smoker 02/10/25 09:12 Hx Tobacco Use No 02/10/25 09:12 Years Smoking Packs Smoked per Day Smoking Cessation Date was Yes - quit smoking within 15 02/10/25 09:12 within the last 15 years years Hx Smoking Cessation Date Hx Smoking Cessation Counseling Hematologic Medial History Hematologic Hx - supply chain analyst: 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 Hx of Blood Transfusion No 02/10/25 09:12 [...] confused, unrespo /Reproduction History /Reproductive History - supply chain analyst: /Reproductive Hx- supply chain analyst Hx Now Gestational Age (in weeks): EDC: [...] mcg (1,000 unit) tablet (Vitamin D3) omega 7-tro-nab-fish oil 1,200 mg 1 cap PO DAILY [...] oriented x3 and moves all extremities 02/23/25 0954 <Electronically signed by Vinicius Carlson MD> Date _ Vinicius Carlson MD [facility] Signature: Date CC: ~ Signed [facility] Work Phone: 1(514) [phone] [facility] Medical Records Department [address] [place] [address] History Physical Exam 02/23/25 1109 MR#: [id number] Acct: [id number] Name: MILES TURNER Rep #: [id number] : 1965 59 From: Too Latham DO PCP: Dr. Vinh Aguilar MD Status:[facility] Location: [place] [address] History and Physical Date of Admission: 02/23/25 [facility] Medical Records Department [address] [place] [address] History Physical Exam 02/23/25 1020 MR#: [id number] Acct: [id number] Name: MILES TURNER Rep #: [id number] : 1965 59 From: Too Latham DO PCP: Dr. Vinh Aguilar MD Status: REG [facility] Location: [place] [address] History and Physical Date of Admission: 02/23/25 [facility] [address] [place] [address] [place] [address] OFFICE VISIT Date of Service: 02/08/25MR#: [id number] Acct: [id number] Name: MILES TURNER Rep #: [id number] : 1965 Provider: Dr. Too Latham DO Age/Sex: 59/M Location: [facility] [place] [facility] Status: Signed Intake Vital Signs 11/04/2514:56 01/11/2510:47 [...] leg. He had an injection with the [facility] in the hip about a year [...] interfaces and position; ri (more content not included)...[facility]05-13-2025 [facility] Medical Records Department [address] [place] [address] History Physical Exam 02/23/25 1020 MR#: [id number] Acct: [id number] Name: MILES TURNER Rep #: [id number] : 1965 59 From: Too Latham DO PCP: Dr. Vinh Aguilar MD Status:[facility] Location: [place] [address]- History and Physical Date of Admission: 02/23/25 [facility] [address] [place] [address] [address] [place] [address] OFFICE VISIT Date of Service: 02/08/25 MR#: [id number] Acct: [id number] Name: MILES TURNER Rep #: [id number] : 1965 Provider: Dr. Too Latham DO Age/Sex: 59/M Location: [facility] [place] [facility] Status: Signed Intake Vital Signs 11/04/2514:56 01/11/2510:47 [...] leg. He had an injection with the [facility] in the hip about a year [...] 06/01/2024 x-ray pelvis: Advanced bilateral hip arthrosis jddm-tj-dwxx with bony erosion large cystic changes of the femoral head and acetabulum Coding Level of Care Code (more content not included)...[facility]05-13-2025 Consult note [facility] Medical Records Department [address] [place] [address] Pre-Anesthesia Evaluation 02/23/25 0943 MR#: [id number] Acct: [id number] Name: MILES TURNER Rep #:[id number] : 1965 59 From: Vinicius Fischer PCP: Dr. Vinh Aguilar MD Status:R [facility] Y Race: C Location: [place] [address] ASA Classification* ASA Classification ASA Classification: 2 [...] Assisted, ERAS Anesthesia History Anesthesia History - supply chain analyst: Anesthesia History - supply chain analyst Hx Hospitalization No 02/10/25 09:12 Any Problems [...] take am of surgery PONV PONV - supply chain analyst: PONV - supply chain analyst Female No 02/10/25 09:12 HX of Motion [...] 02/23/25 08:40 Respiratory Assessment Respiratory Assessment - supply chain analyst: Respiratory Tract Infection Hx - supply chain analyst Hx Respiratory Tract Infection No 02/10/25 09:12 STOP Sleep Apnea STOP Sleep Apnea - supply chain analyst: STOP Sleep Apnea - supply chain analyst Hx Hypertension Yes: CONTROLLED ON MED 02/10/25 [...] Tobacco Use History Tobacco Use History - supply chain analyst: Tobacco Use History - supply chain analyst Tobacco Use Smoking Status Former smoker 02/10/25 09:12 Hx Tobacco Use No 02/10/25 09:12 Years Smoking Packs Smoked per Day Smoking Cessation Date was Yes - quit smoking within 15 02/10/25 09:12 within the last 15 years years Hx Smoking Cessation Date Hx Smoking Cessation Counseling Hematologic Medial History Hematologic Hx - supply chain analyst: 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 Hx of Blood Transfusion No 02/10/25 09:12 [...] confused, unrespo /Reproduction History /Reproductive History - supply chain analyst: /Reproductive Hx- supply chain analyst Hx Now Gestational Age (in weeks): EDC: [...] mcg (1,000 unit) tablet (Vitamin D3) omega 7-wme-ney-fish oil 1,200 mg 1 cap PO DAILY [...] extremities 02/23/25 0951 MD> Date _ Vinicius Nanceignsheldon Signature: Date CC: ~ Signed [facility]05-01-2025 Radiology Diagnostic study note [facility] Imaging Services [address] [place], [place] [id number] Extremity Lower without Contra MR#: [id number] Acct: [id number] Name: MILES TURNER Rep #: [id number] : 1965 M 59 From: Mariel Gomez MD PCP: Dr. Vinh Aguilar MD Status: R EG CLI Study:Extremity Lower without Contra Date of Exam: 02/11/25 Exam# [id number] Ordering Dr: Too Latham DO PROCEDURE: EXTREMITY [...] Latham DO; Dr. Vinh Aguilar MD ~ Tipple Tender: Signed [facility]03-31-2025 Evaluation note* Diagnosis Onset Date Resolution Status Admit Date Orthopedic aftercare acute Gilmer h 2024 10:36am AVN of femur acute February 08, 2025 10:15am Rheumatoid arthritis acute Apri l 2024 10:15am Other acute postprocedural pain acut e February 23, 2025 8:02am Orthopedic aftercare acute March 10, 2025 9:02am Orthopedic aftercare acute April 12, 2025 8:04am [facility] [employer] Work Phone: 1(834) 820-255103-31-2025 Evaluation note* Diagnosis Onset Date Resolution Status [...] of knee acute April 26, 2025 8:08am [employer] Work Phone: 1(210) [phone] Evaluation note* Diagnosis Onset Date Resolution Status [...] of knee acute May 10, 2025 8:52am [employer] Work Phone: 1(116) 873-681003-18-2025 Consult note [facility] Medical Records Department [address] [place] [address] Anesthesia Postop Eval II 12/29/24 1111 MR#: [id number] Acct: [id number] Name: MILES TURNER Rep #:[id number] : 1965 59 From: Bobo Diamond MD PCP: Dr. Vinh Aguilar MD Status:R EG SDC Y Race: C Location: [place] [address] Anesthesia Postop Eval I Sum Postop Eval Completion status Anesthesia document: Postop Eval 1 completed: Yes Anesthesia Postop Eval I Summary Anesthesia Postop Eval I Summary: Anesthesia Postop Eval I: Assessment Summary Airway patent Yes 12/29/24 09:59 CURRICULUM DEVELOPMENT COORDINATOR.LMIL Spontaneous unlabored Yes 12/29/24 09:59 CURRICULUM DEVELOPMENT COORDINATOR.LMIL respirations Mental status Awake 12/29/24 09:59 CURRICULUM DEVELOPMENT COORDINATOR.LMIL nausea No 12/29/24 09:59 CURRICULUM DEVELOPMENT COORDINATOR.LMIL Vomiting No 12/29/24 09:59 CURRICULUM DEVELOPMENT COORDINATOR.LMIL Anesthesia Postop Eval I: Fluid Summary Crystalloid volume administer 2,600 12/29/24 09:59 CURRICULUM DEVELOPMENT COORDINATOR.LMIL (ml) Colloids volume administered ( ml) Blood Product volume administered (ml) Total IV fluid infused 2,600 12/29/24 09:59 CURRICULUM DEVELOPMENT COORDINATOR.LMIL Anesthesia Postop Eval I: Summary Notes Anesthesia Complication No 12/29/24 09:59 CURRICULUM DEVELOPMENT COORDINATOR.LMIL Anesthesia Complication Comment: Post-operative progress note Anesthesia: Postop Eval II Evaluation Mental status: Awake Pain Level: 0 nausea: No Vomiting: No Complications Anesthesia Complication: No 12/29/24 1111 > Date _ Bobo Diamond MD Cosigner Signature: Date CC: ~ Signed [facility]03-18-2025 Consult note Author Bobo Diamond [facility] Note Date/Time December 29, 2024 2:1 5pm [facility] Medical Records Department [address] [place] [address] Anesthesia Postop Eval II 12/29/24 1111 MR#: [id number] Acct: [id number] Name: MILES TURNER Rep #:[id number] : 1965 59 From: Bobo Diamond MD PCP: Dr. Vinh Aguilar MD Status:R EG SDC Y Race: C Location: [place] [address]- Anesthesia Postop Eval I Sum Postop Eval Completion status Anesthesia document: Postop Eval 1 completed: Yes Anesthesia Postop Eval I Summary Anesthesia Postop Eval I Summary: Anesthesia Postop Eval I: Assessment Summary Airway patent Yes 12/29/24 09:59 CURRICULUM DEVELOPMENT COORDINATOR.LMIL Spontaneous unlabored Yes 12/29/24 09:59 CURRICULUM DEVELOPMENT COORDINATOR.LMIL respirations Mental status Awake 12/29/24 09:59 CURRICULUM DEVELOPMENT COORDINATOR.LMIL nausea No 12/29/24 09:59 CURRICULUM DEVELOPMENT COORDINATOR.LMIL Vomiting No 12/29/24 09:59 CURRICULUM DEVELOPMENT COORDINATOR.LMIL Anesthesia Postop Eval I: Fluid Summary Crystalloid volume administer 2,600 12/29/24 09:59 CURRICULUM DEVELOPMENT COORDINATOR.LMIL (ml) Colloids volume administered ( ml) Blood Product volume administered (ml) Total IV fluid infused 2,600 12/29/24 09:59 CURRICULUM DEVELOPMENT COORDINATOR.LMIL Anesthesia Postop Eval I: Summary Notes Anesthesia Complication No 12/29/24 09:59 CURRICULUM DEVELOPMENT COORDINATOR.LMIL Anesthesia Complication Comment: Post-operative progress note Anesthesia: Postop Eval II Evaluation Mental status: Awake Pain Level: 0 nausea: No Vomiting: No Complications Anesthesia Complication: No 12/29/24 1111 <Electronically signed by Bobo Diamond MD> Date _ Bobo Diamond MD Cosigner Signature: Date CC: ~ Signed [facility] Work Phone: 1([phone]) [phone] Discharge summary Author Too Latham [facility] Note Date/Time December 29, 2024 10: 15am [facility] Medical Records Department [address] [place] [address] Instructions for Home/Discharge Instructions 12/29/24 1006 MR#: [id number] Acct: [id number] Name: MILES TURNER Rep #:[id number] : 1965 59 From: Too Latham DO PCP: Dr. Vinh Aguilar MD Status:R [facility] Discharge Instructions Diet Discharge Diet: No restrictions [...] Care Provider: Vinh Aguilar Instructions Print Language: Chadian Discharge Orders/Prescriptions Prescriptions: New acetaminophen 500 mg [...] 12/29/24 1015<Electronically signed by Too Latham DO>Too Latham DO CC: Dr. Vinh Aguilar MD ~ Signed [facility] Work Phone: 1(613) 170-233103-18-2025 Consult note Author Magdalena Beach [facility] Note Date/Time December 29, 2024 10: 04am [facility] Medical Records Department [address] [place] [address] Anesthesia Postop Eval I 12/29/24 0958 MR#: [id number] Acct: [id number] Name: MILES TURNER Rep #:[id number] : 1965 59 From: Magdalena Beach CRNA PCP: Dr. Vinh Aguilar MD Status:To [facility] Y Race: C Location: [place] [address]1 ADDENDUM by CURRICULUM DEVELOPMENT COORDINATOR Magdalena Beach on 12/29/24 at 1004 Addendum Fentanyl 50 mcg given 09:[address] to PACU 12/29/24 1004 <Electronically signed by Magdalena payne CURRICULUM DEVELOPMENT COORDINATOR> Date _ Magdalena Beach CURRICULUM DEVELOPMENT COORDINATOR cc: ~* Signed Anesthesia: Postop Eval I [...] Postop Eval 1 completed: Yes 12/29/24 0959 <Electronically signed by Magdalena payne CURRICULUM DEVELOPMENT COORDINATOR> Date _ Magdalena Beach CURRICULUM DEVELOPMENT COORDINATOR Cosigner Signature: Date CC: ~ Signed [facility] Work Phone: 1(580) 284-611403-18-2025 Radiology Diagnostic study note [facility] Imaging Services [address], [place] [address] Hip Min 2 Views (Portable) MR#: [id number] Acct: [id number] Name: MILES TURNER Rep #: [id number] : 1965 M 59 From: Piedad Mauro MD PCP: Dr. Vinh Aguilar MD Status: To [facility] Study:Hip Min 2 Views (Portable) Date of Exam : 12/29/24 Exam# [id number] Ordering Dr: Too Latham DO EXAM: XR [...] hip replacement in anatomic position. Reading [facility] CC: Dr. Too Latham DO; Dr. Vinh Aguilar MD ~ Tipple Tender: Signed [facility]03-18-2025 Discharge summary [facility] Medical Records Department [address] [place] [address] Instructions for Home/Discharge Instructions 12/29/24 1006 MR#: [id number] Acct: [id number] Name: MILES TURNER Rep #:[id number] : 1965 59 From: Too Latham DO PCP: Dr. Vinh Aguilar MD Status:To [facility] Discharge Instructions Diet Discharge Diet: No restrictions [...] Follow Up Care Please Follow Up With: Borruso,Too, DO When: 2 weeks Test Results: Test results from this visit will be discussed in further detail at your follow- up appointment, if applicable. Discharge Plan Admission Primary Reason for Your Visit: Left total hip arthroplasty Attending Provider: Too Latham Primary Care Provider: Vinh Aguilar Instructions Print Language: Chadian Discharge Orders/Prescriptions Prescriptions: New acetaminophen 500 mg [...] can be placed): Home, Self Care 12/29/24 1015Joseshiela Latham DO CC: Dr. Vinh Aguilar MD ~ Signed [facility]03-18-2025 Procedure note [facility] Medical Records Department [address] [place] [address] Operative Report 12/29/24 1002 MR#: [id number] Acct: [id number] Name: MILES TURNER Rep #:[id number] : 1965 59 From: Too Latham DO PCP: Dr. Vinh Aguilar MD Status:R [facility] Location: [place] [address] Operative Report (Standard) Operative Information Date of Procedure: 12/29/24 Pre-Operative Diagnosis: Left hip DJD rheumatoid arthritis Post-Operative Diagnosis: Same Surgery/Procedure Performed: Left total hip arthroplasty city routeman: Yes Discharge Rn: Moshe Chen Tasks completed by litigation assistant: Opening & closing Additional assistant research scientist?: No Type of Anesthesia: Spinal RN Documented [...] that apply: Implanted device Implanted device details: Yogesh Estimated Blood Loss: 125 Specimen collected: Yes Description of specimen(s) removed: Femoral head Description of surgery: Preoperative diagnosis: Left hip DJD rheumatoid arthritis Postoperative diagnosis: Same Procedure: CT-guided Makoplasty assisted left total hip arthroplasty Implants: [place] Accolade II stem size 6, 127 degree neck angle +2.5 head necklength 56 mm TridentII acetabular shell with 40 mm cancellous screw 36 mm ceramic head, 10 degree Trident X3 polyethylene insert. Anesthesia: Spinal EBL: 125 cc Complications: None Condition: Stable to PACU Underwriting Internship Moshe Chen. My physician assistant research scientist was a vital part of this case. [...] subcutaneous stitches and rex in the skin. [place] were placed in the skin pin sites [...] Latham DO; Dr. Vinh Aguilar MD~ Signed [facility]03-18-2025 Consult note [facility] Medical Records Department [address] [place] [address] Anesthesia Postop Eval I 12/29/24 0958 MR#: [id number] Acct: [id number] Name: MILES TURNER Rep #:[id number] : 1965 59 From: Magdalena Beach CRNA PCP: Dr. Vinh Aguilar MD Status:R EG [facility] Y Race: C Location: [place] [address]1 ADDENDUM by IRMA Beach on 12/29/24 at 1004 Addendum Fentanyl 50 mcg given 09:[address] to PACU 12/29/24 1004 c CURRICULUM DEVELOPMENT COORDINATOR> Date _ Magdalena Beach CRNA cc: ~* [...] Eval 1 completed: Yes 12/29/24 0959 c CURRICULUM DEVELOPMENT COORDINATOR> Date _ Magdalena Beach CURRICULUM DEVELOPMENT COORDINATOR Cosigner Signature: Date CC: ~ Signed [facility]03-18-2025 History and physical note Author Too Latham [facility] Note Date/Time December 29, 2024 7:2 5am [facility] Medical Records Department [address] [place] [address] History & Physical Exam 12/29/2425 MR#: [id number] Acct: [id number] Name: MILES TURNER Rep #:[id number] : 1965 59 From: Too Latham DO PCP: Dr. Vinh Aguilar MD Status:To [facility] Location: [place] [address] History and Physical Date of Admission: 12/29/24 [facility] [address] [place] [address] OFFICE VISIT Date of Service: 11/04/24 MR#: [id number] Acct: [id number] Name: MILES TURNER Rep #: [id number] : 1965 Provider: Dr. Too Latham DO Age/Sex: 59/M Location: [facility] Status: Signed Intake Vital Signs 07/27/2408:18 11/04/2514:56 [...] 5 tabs of 2.5mg. 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 Patient in agreement of plan. 11/04/241637 <Electronically signed by Too Latham DO> Date Too Latham DO Cosigner Signature: Date (if applicable) CC: ~ I have examined the patient and the H&P has been reviewed. There are no clinicalchanges since date of exam. 12/29/24724 <Electronically signed by Too Latham DO> Cosigner Signature (if applicable): CC: Dr. Too Latham DO; Dr. Vinh Aguilar MD~ Signed [facility] Work Phone: 1(408) 507-843003-18-2025 Consult note Author Bobo Diamond [facility] Note Date/Time December 29, 2024 6:5 2am [facility] Medical Records Department [address] [place] [address] Pre-Anesthesia Evaluation 12/29/24 0646 MR#: [id number] Acct: [id number] Name: MILES TURNER Rep #:[id number] : 1965 59 From: Bobo Diamond MD PCP: Dr. Vinh Aguilar MD Status:R EG SDC Y Race: C Location: [place] [address]1 ASA Classification* ASA Classification ASA Classification: 2 [...] ROBOTIC ASSISITED Anesthesia History Anesthesia History - supply chain analyst: Anesthesia History - supply chain analyst Hx Hospitalization No 12/15/24 14:01 Any Problems [...] take am of surgery PONV PONV - supply chain analyst: PONV - supply chain analyst Female No 12/15/24 14:01 HX of Motion [...] 12/29/24 06:05 Respiratory Assessment Respiratory Assessment - supply chain analyst: Respiratory Tract Infection Hx - supply chain analyst Hx Respiratory Tract Infection No 12/15/24 14:01 STOP Sleep Apnea STOP Sleep Apnea - supply chain analyst: STOP Sleep Apnea - supply chain analyst Hx Hypertension Yes: CONTROLLED WITH MEDS 12/15/24 [...] Tobacco Use History Tobacco Use History - supply chain analyst: Tobacco Use History - supply chain analyst Tobacco Use Smoking Status Former smoker 12/15/24 14:01 Hx Tobacco Use No 12/15/24 14:01 Years Smoking Packs Smoked per Day Smoking Cessation Date was No - quit smoking greater 12/15/24 14:01 within the last 15 years than 15 years ago Hx Smoking Cessation Date Hx Smoking Cessation Counseling Hematologic Medial History Hematologic Hx - supply chain analyst: 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 Hx of Blood Transfusion No 12/15/24 14:01 [...] confused, unrespo /Reproduction History /Reproductive History - supply chain analyst: /Reproductive Hx- supply chain analyst Hx Now Gestational Age (in weeks): EDC: Hx Hx Para Hx Section SAB Active Medications Active Medications: Current Medications Generic Name Dose Route Start Last Admin Trade Name Lorelei PRN Reason Stop Dose Admin Acetaminophen 1,000 [...] 12/29/24 07:31 1 patch X1 ONE Administration [facility] Medical History Wears glasses Colonoscopy planned Gastric [...] MD Cosigner Signature: Date CC: ~ Signed [facility] Work Phone: 1(619) 839-812503-18-2025 History and physical note [facility] Medical Records Department [address] [place] [address] History & Physical Exam 12/29/24 0725 MR#: [id number] Acct: [id number] Name: MILES TURNER Rep #:[id number] : 1965 59 From: Too Latham DO PCP: Dr. Vinh Aguilar MD Status:To [facility] Location: [place] [address] History and Physical Date of Admission: 12/29/24 [facility] [address] [place] [address] OFFICE VISIT Date of Service: 11/04/24 MR#: [id number] Acct: [id number] Name: MILES TURNER Rep #: [id number] : 1965 Provider: Dr. Too Latham DO Age/Sex: 59/M Location[facility] Status: Signed Intake Vital Signs 07/27/2408:18 11/04/2514:56 [...] 5 tabs of 2.5mg. 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 Josh have to do at least of 6 [...] questions answered. Patient in agreement of plan. 11/04/241637 Date Too Latham DO Cosigner Signature: Date (if applicable) CC: ~ I have examined the patient and the H&P has been reviewed. There are no clinicalchanges since date of exam. 12/29/24724 Cosigner Signature (if applicable): CC: Dr. Too Latham DO; Dr. Vinh Aguilar MD~ Signed [facility]03-18-2025 [facility] Medical Records Department [address] [place] [address] History Physical Exam 12/29/24724 MR#: [id number] Acct: [id number] Name: MILES TURNER Rep #: [id number] : 1965 59 From: Too Latham DO PCP: Dr. Vinh Aguilar MD Status:[facility] Location: [address] History and Physical Date of Admission: 12/29/24 [facility] [address] [place] [address] [address] [place] [address] OFFICE VISIT Date of Service: 11/04/24 MR#: [id number] Acct: [id number] Name: MILES TURNER Rep #: [id number] : 1965 Provider: Dr. Too Latham DO Age/Sex: 59/M Location: [facility] Status: Signed Intake Vital Signs 07/27/2408:18 11/04/2514:56 [...] 5 tabs of 2.5mg. 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 Vinh Aguilar MD Status:R EG SDC Y Race: C Location: [place] [address]1 ASA Classification* ASA Classification ASA Classification: 2 [...] ROBOTIC ASSISITED Anesthesia History Anesthesia History - supply chain analyst: Anesthesia History - supply chain analyst Hx Hospitalization No 12/15/24 14:01 Any Problems [...] take am of surgery PONV PONV - supply chain analyst: PONV - supply chain analyst Female No 12/15/24 14:01 HX of Motion [...] 12/29/24 06:05 Respiratory Assessment Respiratory Assessment - supply chain analyst: Respiratory Tract Infection Hx - supply chain analyst Hx Respiratory Tract Infection No 12/15/24 14:01 STOP Sleep Apnea STOP Sleep Apnea - supply chain analyst: STOP Sleep Apnea - supply chain analyst Hx Hypertension Yes: CONTROLLED WITH MEDS 12/15/24 [...] Tobacco Use History Tobacco Use History - supply chain analyst: Tobacco Use History - supply chain analyst Tobacco Use Smoking Status Former smoker 12/15/24 14:01 Hx Tobacco Use No 12/15/24 14:01 Years Smoking Packs Smoked per Day Smoking Cessation Date was No - quit smoking greater 12/15/24 14:01 within the last 15 years than 15 years ago Hx Smoking Cessation Date Hx Smoking Cessation Counseling Hematologic Medial History Hematologic Hx - supply chain analyst: 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 Stop etodolac 7 days before surgery. [facility]25 NoteHNO ID: [id number] Author: VINH AGUILAR MD Service: ? Author [...] since quittin.6 Smokeless tobacco: Never Tobacco comments: [facility] smokes cigar occasionally Vaping Use [...] every 6 hours as needed for Pain. [place]-3 Fatty Acids (FISH OIL) 500 mg cap [...] or information. 2. Essent (more content not included)...[facility]03-10-2025 History of Present illness Narrative* Vinh Aguilar [...] every 6 hours as needed for Pain. [place]-3 Fatty Acids (FISH OIL) 500 mg cap [...] prednisone and methotrexate as instructed by his acoustic warfare analyst. Vinh Aguilar MD documented [facility]Pe[facility]03-05-2025 Evaluation note* Diagnosis Onset Date Resolution Status Admit Date Bilateral primary osteoarthr itis of knee acute December 16, 2024 3:58pm Orthopedic aftercare acute [facility] 2024 10:36am AVN of femur acute February 08, 2025 10:15am Rheumatoid arthritis acute [facility] 2024 10:15am Other acute postprocedural pain acut e February 23, 2025 8:02am [facility] Work Phone: [phone]) 392-2084026581-52-8920 Evaluation note* Diagnosis Onset Date Resolution Status Admit Date Bilateral primary osteoarthr itis of knee acute December 16, 2024 3:58pm Orthopedic aftercare acute [facility] 2024 10:36am AVN of femur acute February 08, 2025 10:15am Rheumatoid arthritis acute [facility] 2024 10:15am Other acute postprocedural pain acut e February 23, 2025 8:02am Orthopedic aftercare acute March 10, 2025 9:02am [facility] Work Phone: 1(804) 575-358003-03-2025 Radiology Diagnostic study note [facility] Imaging Services [address] [place] [address] Extremity Lower without Contra MR#: [id number] Acct: [id number] Name: MILES TURNER Rep #: [id number] : 1965 M 59 From: Drake Selby MD PCP: Dr. Vinh Aguilar MD Status: R EG CLI Study:Extremity Lower without Contra Date of Exam: 12/11/24 Exam# [id number] Ordering Dr: Too Latham DO PROCEDURE: EXTREMITY LOWER WITHOUT CONTRA REASON FOR EXAM: Templating for left total hip replacement. [facility] protocol TECHNIQUE: Multiple axial tomographic images of [...] use of iterative reconstruction technique). Reading Location: [id number] CC: Dr. Too Latham DO; Dr. Vinh Aguilar MD ~ Tipple Tender: Signed [facility]02-24-2025 Telephone encounter Note* Telephone Encounter - Marnie Patsrana LPN - 12/07/2024 1:49 PM EST Patient [...] Please advise. Thank you. Marnie Pastrana LPN. [facility]02-24-[facility]25 Miscellaneous Notes* Telephone Encounter - Marnie [...] you. Marnie Pastrana LPN. documented [facility]Pe[facility]02-18-2025 Telephone encounter Note * Telephone Encounter [...] Patricia LPN December 01, 2024 11:57 AM [facility]-18-2025 Miscellaneous Notes* Telephone Encounter - Alycia [...] 01, 2024 11:57 AM documented in [facility] encounterPe[facility]02-11-2025 Telephone encounter Note * Telephone Encounter - Lakshmi Paula LPN - 11/24/2024 4:54 PM EST appt with pcp 12/21/24. [facility]-11-[facility] Miscellaneous Notes* Telephone Encounter - Lakshmi Paula LPN - 11/24/2024 4:54 PM EST appt with pcp 12/21/24. * Telephone Encounter - Lakshmi Paula LPN - 11/24/2024 2:32 PM EST Fax rec'd from Dr. Latham's office noting pt is having left total hip arthroplasty 12/29/24. Pt will need to see pcp or his HOOK PULLER within 30 days of scheduled surgery. Message left for pt to return call to arrange a 40 minute pre op clearance appt. documented in this encounterPeoples [facility]02-11-2025 Telephone encounter Note * Telephone Encounter - Lakshmi Paula LPN - 11/24/2024 2:32 PM EST Fax rec'd from Dr. Latham's office noting pt is having left total hip arthroplasty 12/29/24. Pt will need to see pcp or his HOOK PULLER within 30 days of scheduled surgery. Message left for pt to return call to arrange a 40 minute pre op clearance appt. [facility]01-31-2025 Miscellaneous Notes* Telephone Encounter - Anival Rodriguez RN - 11/13/2024 4:54 PM EST Patient reports he is having a hip replacement with [facility] on 12-29-24. Asking if he needs to schedule with pre-op with pcp or surgeon. Patient will call the surgeon and ask them. Advised if he needs pre-op appt with pcp would need to schedule within 30 days of surgery. documented in [facility] encounterPe[facility]01-31-2025 Telephone encounter Note * Telephone Encounter - Anival Rodriguez RN - 11/13/2024 4:54 PM EST Patient reports he is having a hip replacement with [facility] on 12-29-24. Asking if he needs to schedule with pre-op with pcp or surgeon. Patient will call the surgeon and ask them. Advised if he needs pre-op appt with pcp would need to schedule within 30 days of surgery. 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 acute November 04 3:53pm Rheumatoid arthritis acute Juan 2024 3:53pm Bilateral primary osteoarthr itis of knee acute December 16, 2024 3:58pm Orthopedic aftercare acute [facility] 2024 10:36am AVN of femur acute February 08, 2025 10:15am Rheumatoid arthritis acute [facility] 2024 10:15am [facility] Work Phone: 1(458) 796-536401-22-2025 Evaluation note* Diagnosis Onset Date Resolution Status Admit Date 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 acute November 04 3:53pm Rheumatoid arthritis acute Juan 2024 3:53pm Bilateral primary osteoarthr itis of knee acute December 16, 2024 3:58pm Orthopedic aftercare acute [facility] 2024 10:36am AVN of femur acute February 08, 2025 10:15am Rheumatoid arthritis acute [facility] 2024 10:15am Other acute postprocedural pain acut e February 23, 2025 8:02am [facility] Work Phone: 1(531) 363-646209-04-2024 Telephone encounter Note* Telephone Encounter - Jessica [...] Olsen RN June 17, 2024 11:22 AM [facility]09-04-[facility] Miscellaneous Notes* Telephone Encounter - Jessica [...] 17, 2024 11:22 AM documented in this encounterPeoples Hospital08-26-2024 Telephone encounter Note * Telephone Encounter - Vinh Aguilar MD - 06/08/2024 1:39 PM EDT The following approved medication requests have been transmitted electronically. Requested Prescriptions Signed Prescriptions Disp Refills etodolac (LODINE) 400 mg tablet 60 tablet 5 Sig: Take 1 tablet by mouth two times a day. Authorizing Provider: VINH AGUILAR MD [facility]08-26-2024 Miscellaneous Notes* Telephone Encounter - Vinh [...] - 06/08/2024 8:22 AM EDT Patient reports [facility], tells him Lodine was discontined by pcp. Reports he is not taking ibuprofen. Reports Dr. Prescott, advised him he should be taking the Lodine. Asking pcp to send Rx for Lodine to [facility]. Pended. documented in this encounterPeoples Hospital08-26-2024 Telephone encounter Note * Telephone Encounter - Anival Rodriguez RN - 06/08/2024 8:22 AM EDT Patient reports [facility], tells him Lodine was discontined by pcp. Reports he is not taking ibuprofen. Reports Dr. Prescott, advised him he should be taking the Lodine. Asking pcp to send Rx for Lodine to [facility]. Pended. [facility]08-16-2024 Telephone encounter Note* Telephone Encounter - Vinh Aguilar MD - 05/29/2024 1:16 PM EDT The following approved medication requests have been transmitted electronically. Requested Prescriptions Signed Prescriptions Disp Refills ibuprofen (MOTRIN) 800 mg tablet 90 tablet 2 Sig: Take 1 tablet by mouth every 8 hours as needed for pain. Take with food. Authorizing Provider: VINH AGUILAR MD [facility]08-16-2024 Miscellaneous Notes* Telephone Encounter - Vinh Aguilar MD - 05/29/2024 1:16 PM EDT The following approved medication requests have been transmitted electronically. Requested Prescriptions Signed Prescriptions Disp Refills ibuprofen (MOTRIN) 800 mg tablet 90 tablet 2 Sig: Take 1 tablet by mouth every 8 hours as needed for pain. Take with food. Authorizing Provider: VINH AGULIAR MD * Telephone Encounter - Pau Roberts [...] his pharmacy. Please advise documented in this encounterPeoples Hospital08-16-2024 Telephone encounter Note * Telephone Encounter [...] [facility] for his pharmacy. Please advise [facility]-08[facility] Telephone encounter Note* Telephone Encounter - Jud Lopez RN - 05/21/2024 3:40 PM EDT Spoke with patient. Given message from provider's office. Patient verbalizes understanding. Patient says he will call Dr. Prescott's office to find out if she is accepting new patients and isin network with his insurance. Jud Lopez RN [facility]08-08-2024 Telephone encounter Note* Telephone Encounter - Hailey Fernando RN - 05/21/2024 3:40 PM EDT Called and left a detailed voicemail notifying patient of providers message. Clinic phone number was left in case patient had any questions. Faxed order, demographic sheet, labs, and last OV note to Dr Prescott at fax # [phone]. Hailey Fernando RN [facility]08-08-2024 Miscellaneous Notes* Telephone Encounter - Jud [...] note to Dr Prescott at fax # [phone]. Hailey Fernando RN * Telephone Encounter - [...] a referral to the arthritis doctor at [facility] with [facility]. Pt also concerned about his lipid profile results. Pt has not stopped his cholesterol medication at all and states he is still having pain. Wondering his next steps. documented in this encounterPeoples Hospital08-08-2024 Telephone encounter Note * Telephone Encounter [...] [facility], Dr. Kalli Prescott. Attach labs. [facility]08-07-20[facility] Telephone encounter Note* Telephone Encounter - Maryjane Aaron RN - 05/20/2024 4:00 PM EDT Pt calling in for his lab results and asking about a referral to the arthritis doctor at [facility] with [facility]. Pt also concerned about his lipid profile results. Pt has not stopped his cholesterol medication at all and states he is still having pain. Wondering his next steps. [facility]08-02-[facility] History of Present illness Narrative* Vinh Aguilar MD - 05/15/2024 8:18 AM EDT This note was created using [employer]. Subjective Patient presents with: Yearly Exam: Fasting [...] option. He sees orthopedics, and goes to [facility] for optometry. Review of Systems Constitutional: Negative [...] Obesity, Class III, BMI 40-49.9 (morbid obesity) ([facility]) 05/26/2021: Primary osteoarthritis of both hips 03/30/2014: [...] every 6 hours as needed for Pain. [place]-3 Fatty Acids (FISH OIL) 500 mg cap [...] multiple. Vinh Aguilar MD documented in this encounterPeoples Hospital07-25-2024 Telephone encounter Note * Telephone Encounter [...] Jerilyn Egan May 07, 2024 4:14 PM [facility] Miscellaneous Notes* Telephone Encounter - Jerilyn Nvees - 05/07/2024 4:14 PM EDT Prescription Refill [...] 07, 2024 4:14 PM [facility] encounterPe[facility]05[facility] Procedure [facility]04-29-2024 Telephone encounter Note* Telephone Encounter - Elizabeth Perry MA - 02/10/2024 9:51 AM EDT New order faxed to [facility]. Confirmation received. [facility] Miscellaneous Notes* Telephone Encounter - Elizabeth Perry MA - 02/10/2024 9:51 AM EDT New order faxed to [facility]. Confirmation received. * Telephone Encounter - Gilda Rutherford PA-C - 02/06/2024 1:45 PM EDT Order signed. * Telephone Encounter - Elizabeth Perry MA - 02/06/2024 10:58 AM EDT Order needs to be changed for hip injection at [facility]. Please sign new order. documented [facility] encounterPe[facility]04-[facility]24 Telephone encounter Note * Telephone Encounter - Gilda Rutherford PA-C - 02/06/2024 1:45 PM EDT Order signed. [facility] Telephone encounter Note* Telephone Encounter - Elizabeth Perry MA - 02/06/2024 10:58 AM EDT Order needs to be changed for hip injection at [facility]. Please sign new order. [facility]24 Telephone encounter Note* Telephone Encounter - Wendy Wahl - 02/06/2024 8:47 AM EDT Patient has been identified by name and date of : Yes, Provider VETOVITZ Patient phones for refill(s): Requested Prescriptions Pending [...] PHARMACY Please advise. Thank you. Wendy Wahl. [facility]04-25-2024 Miscellaneous Notes* Telephone Encounter - Wendy Wahl - 02/06/2024 8:47 AM EDT Patient has been identified by name and date of : Yes, Provider VETOVIKEON Patient phones for refill(s): Requested Prescriptions Pending [...] Thank you. Wendy Wahl. [facility] encounter[facility]04-22-[facility]24 History of Present illness Narrative* Elizabeth Perry MA - 02/03/2024 11:25 AM EDT Order for hip injection faxed to [facility] scheduling, radiology, and pharmacy. Confirmation received. Referral placed. * Gilda Rutherford PA-C - 02/03/2024 8:25 AM EDTAssociated Order(s): Large Joint Arthro/Inj: bilateral knee joints Post-Procedure Diagnose(s): Primary osteoarthritis of both knees Gilda Rutherford PA-C Department of Orthopaedics Orthopaedics [address] [facility] [address] Dept: [phone] Dept February 03, 2024 CHIEF COMPLAINT: Established [...] intra-articular corticosteroid injection, order was faxed to [facility]. We will get him on some oral diclofenac in place of the Lodine to see if it helps him more with pain and discomfort. Large Joint Arthro/Inj: bilateral knee joints Informed Consent Consent Obtained: Verbal Friant Protocol A moment to CARE was completed. [...] every 6 hours as needed for Pain. [place]-3 Fatty Acids (FISH OIL) 500 mg cap Take 500 mg by mouth once daily. diclofenac, EC, (VOLTAREN) 75 mg EC tablet Take 1 tablet by mouth two times a day. FOR PAIN No current facility-administered medications for this visit. Allergies: Patient has no known allergies. This note was partially generated using [employer] voice recognition system, and there may be some incorrect words, spellings, and punctuation that were not noted in checking the note before saving. Gilda Rutherford PA-C * Elizabeth Perry MA - 02/03/2024 7:40 AM EDT AMB ROOMING INTAKE FLOWSHEET DATA Pain Pain Level: 8 Pain Location: (bilateral knees) Description: Dull Duration Amount of Time: (ongoing) Frequency: Continuous Intervention/Comfort measure: Medication documented in this encounterPeoples Hospital04-20-2024 Miscellaneous Notes* Telephone Encounter - Agnelica Olivares LPN - 02/01/2024 10:03 AM EDT [...] Patientdoes have an appointment on Saturday with Wendy - Danika Rutherford for possible injection. Please review and advise further Angelica Olivares LPN documented in this encounterPeoples Hospital02-19-2024 History of Present illness Narrative* Gilda Rutherford PA-C - 12/02/2023 3:40 PM ESTAssociated Order(s): Large Joint Arthro/Inj: bilateral knee joints Post-Procedure Diagnose(s): Primary osteoarthritis of both knees Large Joint Arthro/Inj: bilateral knee joints Informed Consent Consent Obtained: Verbal Friant Protocol A moment to CARE was completed. [...] EST Euflexxa bilateral knee injections LOT # [id number] EXP 2024-09-08 Giselle Reyes RN * Giselle [...] Reposition Giselle Reyes RN documented in this encounterPeoples Hospital02-12-2024 History of Present illness Narrative* Gilda Rutherford PA-C - 11/25/2023 3:45 PM ESTAssociated Order(s): Large Joint Arthro/Inj: bilateral knee joints Post-Procedure Diagnose(s): Primary osteoarthritis of both knees Large Joint Arthro/Inj: bilateral knee joints Informed Consent Consent Obtained: Verbal Friant Protocol A moment to CARE was completed. [...] # 2 into bilateral knees. LOT # [id number] EXP 07/22/2024 Elizabeth Perry Ma documented in this encounterPeoples Hospital02-07-2024 History of Present illness Narrative* Noemi Beltran, PRESS SUPERVISOR.DIRECTORY ASSISTANCE OPERATOR - 11/20/2023 4:12 PM EST CC: Patient [...] every 6 hours as needed for Pain. [place]-3 Fatty Acids (FISH OIL) 500 mg cap [...] Lung Cancer Screening due on 05/13/2024 Covid-19 Vaccine() due on 11/20/2024 Annual PCP Team Chronic [...] Patient agreeable to treatment plan. Noemi Beltran APRN.DIRECTORY ASSISTANCE OPERATOR documented in this encounterPeoples Hospital07-31-2023 History of Present illness Narrative* Vinh [...] every 6 hours as needed for Pain. [place]-3 Fatty Acids (FISH OIL) 500 mg cap [...] intervention Vinh Aguilar MD documented in this encounterPeoples Hospital07-10-2023 Miscellaneous Notes* Telephone Encounter - Marnie [...] and advise. Giselle Reynolds documented in this encounterPeoples Hospital05-25-2023 History of Present illness Narrative* Satish Rosas MD - 03/07/2023 9:26 AM EDT Satish Rosas MD Department of Orthopaedics Orthopaedics [address] [facility] [address] Dept: [phone] Dept March 07, 2023 CHIEF COMPLAINT: Knee [...] from prior studies particularly on the RIGHT. Tipple Tender: [facility]ny Transcribe Date/Time: Mar 08 2023 12:01P Dictated [...] every 6 hours as needed for Pain. [place]-3 Fatty Acids (FISH OIL) 500 mg cap [...] anxiety) Satish Rosas MD documented in this encounterPeoples Hospital05-25-2023 History of Present illness Narrative* Shanti [...] 07, 2023 8:29 AM documented in this encounterPeoples Hospital04-03-2023 Miscellaneous Notes* Telephone Encounter - Marnie Pastrana LPN - 01/14/2023 7:03 PM EDT [...] pharmacy. No need to notify patient. Evelyn Egan documented in this encounterPeoples Hospital02-06-2023 Miscellaneous Notes* Telephone Encounter - Shahbaz Rm Ma - 11/19/2022 12:05 PM EST RANDAL: 04/14/2022 etodloac Last refill: 07/18/2022 QTY: 60 Refills: 3 omeprazole Last refill: 11/14/2021 QTY: 90 Refills: 3 * Telephone Encounter - Rosy Moreno Pss - 11/19/2022 8:24 AM EST Pharmacy verified in [facility] Patient has been identified by name and [...] advise. Rosy Moreno Pss documented in this encounterPeoples Hospital01-25-2023 Miscellaneous Notes* Telephone Encounter - Hailey [...] advise patient. Thank you. documented in this encounterPeoples Hospital10-04-2022 Miscellaneous Notes* Telephone Encounter - Kasey [...] patient. Kriss Mccord Pss documented in this encounterPeoples Hospital09-09-2022 Instructions* Patient Instructions* Hailey Hodges PA-C - 06/22/2022 9:37 AM EDT The following instructions are important for you related to your office visit today with the [facility]. INSTRUCTIONS FOLLOWING A POLYP FOUND [...] you should contact our office immediately @ [phone] and ask to be transferred to the General Surgery department. documented in this encounterPeoples Hospital09-09-2022 History of Present illness Narrative* Hailey Hodges PA-C - 06/22/2022 9:26 AM EDT FOLLOW UP VISIT - ENDOSCOPY NAME: Miles Turner [facility] NO.: [id number] DATE OF SERVICE: 06/22/2022 : 1965 REFERRING [...] which included preparing to see the patient, [id number] patient care, completing clinical documentation, obtaining and/or reviewing separately obtained history, counseling and educating the patient/family/caregiver, independently interpretin g results (not separately reported), and communicating results to the patient/family/caregiver. Hailey Hodges PA-C documented in this encounterPeoples Hospital08-11-2022 Miscellaneous Notes* Telephone Encounter - Gisela Durahm - 05/24/2022 8:25 AM EDT Thank you [...] sent concerning the patient associated with this [employer] account. * All messages submitted will become part of the permanent medical record. * Telephone Encounter - Rosy Shepard - 05/23/2022 5:11 PM EDT Pt called regarding colonoscopy prep. He stated the pharmacy did not have the prescription anymore.He would like the prep that was suggested to be sent to [facility]. documented in this encounterPe[facility] Hospital07-22-2022 History of Present illness Narrative* Noemi Fung, PRESS SUPERVISOR.DIRECTORY ASSISTANCE OPERATOR - 05/04/2022 9:08 AM EDT CC: Patient [...] mouth every 6 hours as neededfor Pain. [place]-3 Fatty Acids (FISH OIL) 500 mg cap [...] at this time. - Patient was counseled [id number] by myself (the billing provider) for the [...] plan. Noemi Fung APRN.CNP documented in this encounterPeoples Hospital06-24-2022 Miscellaneous Notes* Telephone Encounter - Kassie [...] Please call and advise. documented in this encounterPeoples Hospital06-22-2022 Miscellaneous Notes* Telephone Encounter - Marnie [...] and advise. MOHIT Azul documented in this encounterPeoples Hospital06-17-2022 Miscellaneous Notes* Telephone Encounter - Elzbieta Ramirez - 03/30/2022 8:56 AM EDT 06/04/2022 COLON ASC documented in this encounterPeoples Hospital06-04-2022 Miscellaneous Notes* Telephone Encounter - Lorin [...] and advise. Lorin Sweet documented in this encounterPeoples Hospital05-17-2022 History of Present illness Narrative* Vinicius Oliver MD - 02/27/2022 2:47 PM EDT HISTORY AND PHYSICAL Miles Lopez Yue 1965 REFERRING PHYSICIAN: Vinicius Gould APRN.DIRECTORY ASSISTANCE OPERATOR,* CHIEF COMPLAINT: Consult (pilonidal cyst) HPI: The [...] mouth every 6 hours as neededfor Pain. [place]-3 Fatty Acids (FISH OIL) 500 mg Cap [...] entered by the nurse and reviewed by sd Nursing Notes: Izabela Whitley LPN 02/27/2022 2:35 [...] Vinicius Oliver III, MD documented in this encounterPeoples Hospital05-17-2022 Nurse Note* Izabela Whitley, PARAEDUCATOR - 02/27/2022 2:33 PM EDT REVIEW OF [...] 2015 Izabela Whitley LPN documented in this encounterPeoples Hospital05-13-2022 Instructions* Patient Instructions* Vinicius Gould APRN.FIFI, ALEJANDRO - 02/23/2022 3:27 PM EDT Follow up if symptoms worsen Consult to general surgery Antib[facility]. [facility] Return to the clinic or seek [...] Vinicius Gould APRN.ALEJANDRO CALIX documented in this encounterPeoples Hospital05-13-2022 History of Present illness Narrative* Vinicius Gould APRN.ALEJANDRO CALIX - 02/23/2022 3:00 PM EDT Chief Complaint [...] mouth every 6 hours as neededfor Pain. [place]-3 Fatty Acids (FISH OIL) 500 mg Cap [...] normal. Gait is steady with normal steps Customer Success Representative for exam was: [place] pediatrician/medical doctor. Health Maintenance List LUNG CANCER SCREENING Never [...] a wellness approach to health. Vinicius Gould APRN.DIRECTORY ASSISTANCE OPERATOR, DNP This note was completed with [employer] dictation software. Note was reviewed for accuracy. There may be minor misspellings or grammar miscues with [employer] Dictation. I spent a total of 25 minutes on the date of the service which included preparing to see the patient, [id number] patient care, completing clinical documentation, performing a medically appropriate examination, counseling and educating the patient/family/caregiver and ordering medications, tests, or procedures. [facility] [address] [id number] documented in this encounterPeoples Hospital05-13-2022 Miscellaneous Notes* Telephone Encounter - Albert Jensen - 02/23/2022 10:28 AM EDT Due to patients BMI needs office consult with Hailey Hodges or Nayely Hopson prior to procedure please schedule DDSI consult documented in this encounterPeoples Hospital04-12-2022 Miscellaneous Notes* Telephone Encounter - Linda [...] EDT Patient called to schedule his colonoscopy. [facility] will not allow scheduling; says there is not a valid order in system. Tried scheduling through the referral and the finalized requests tab, but neither worked. Please advise patient when corrected. He is asking for a return call on Saturday after 4 pm. [phone]. documented in this encounterPeoples Hospital04-04-2022 Miscellaneous Notes* Telephone Encounter - Lakshmi Paula LPN - 01/15/2022 2:54 PM EDT Last appt with pcp 11/29/21 Next is 04/04/22. * Telephone Encounter - Kriss Egan - 01/15/2022 8:18 AM EDT Patient has been identified by name and date of : Yes Pending Prescriptions Disp Refills ETODOLAC 400 MG TABLET 60 tablet 1 Sig: Take 1 tablet by mouth twice daily as needed (joint pain). BRYANT: No RX INSTRUCTIONS: Patient aware RX will be sent to pharmacy. No need to notify patient. Kriss Egan documented in this encounterPeoples Hospital03-24-2022 Miscellaneous Notes* Telephone Encounter - Alycia [...] advise. Alycia Patricia LPN documented in this encounterPeoples Hospital07-23-2021 History of Present illness Narrative* Ni [...] 05, 2021 11:34 AM documented in this encounterPe[facility] Hospital08-04-2014 History of Past illness Narrative* Problem [...] of this encounter (statuses as of 01/04/2022) [facility] N[facility]ative* Problem [...] of this encounter (statuses as of 01/15/2022) [facility] N[facility]ative* Problem [...] of this encounter (statuses as of 01/23/2022) [facility] N[facility]ative* Problem [...] of this encounter (statuses as of 02/23/2022) [facility] N[facility]ative* Problem [...] of this encounter (statuses as of 02/27/2022) [facility] N[facility]ative* Problem [...] of this encounter (statuses as of 02/27/2022) [facility]* Problem [...] of this encounter (statuses as of 03/17/2022) [facility]ative* Problem [...] of this encounter (statuses as of 04/06/2022) [facility]* Problem [...] of this encounter (statuses as of 04/06/2022) [facility]ative* Problem [...] of this encounter (statuses as of 05/04/2022) [facility]ative* Problem [...] of this encounter (statuses as of 05/24/2022) [facility]* Problem [...] of this encounter (statuses as of 06/22/2022) [facility]* Problem [...] of this encounter (statuses as of 07/18/2022) [facility]* Problem [...] of this encounter (statuses as of 11/07/2022) [facility]* Problem [...] of this encounter (statuses as of 11/19/2022) [facility]* Problem [...] of this encounter (statuses as of 11/28/2022) [facility]ative* Problem [...] of this encounter (statuses as of 01/15/2023) [facility]* Problem [...] of this encounter (statuses as of 04/04/2023) [facility]* Problem [...] of this encounter (statuses as of 04/24/2023) [facility]* Problem [...] of this encounter (statuses as of 05/14/2023) [facility]* Problem [...] of this encounter (statuses as of 08/18/2023) [facility]* Problem [...] of this encounter (statuses as of 11/21/2023) [facility]* Problem [...] of this encounter (statuses as of 11/25/2023) [facility]* Problem [...] of this encounter (statuses as of 12/02/2023) [facility]* Problem [...] of this encounter (statuses as of 02/01/2024) [facility]* Problem [...] of this encounter (statuses as of 02/03/2024) [facility]* Diagnosis Hypertriglyceridemia Pure hyperglyceridemia [facility] Pain in left hip Pain in joint, pelvic region and thigh [facility] Diagnosis Special screening for malignant neoplasms, colon- Primary [facility] Diagnosis Pilonidal cyst- Primary Pilonidal cyst without mention of abscess Obesity, Class II, BMI 35-39.9 Obesity, unspecified [facility] Diagnosis Perianal abscess- Primary Abscess of anal and rectal regions [facility] Diagnosis Hypertriglyceridemia Pure hyperglyceridemia [facility] Diagnosis Wellness examination- Primary Need for vaccination Need for prophylactic vaccination and inoculation against unspecified single disease [facility] Diagnosis Polyp of sigmoid colon, unspecified type- Primary Family history of colon cancer Family history of malignant neoplasm of gastrointestinal tract [facility] Diagnosis Pain in left hip Pain in joint, pelvic region and thigh [facility] Diagnosis Hypertriglyceridemia- Primary Pure hyperglyceridemia Essential hypertension Unspecified essential hypertension Vitamin D deficiency Unspecified vitamin D deficiency Screening for prostate cancer Special screening for malignant neoplasm of prostate [facility] Diagnosis Pain in left hip Pain in joint, pelvic region and thigh Gastroesophageal reflux disease without esophagitis Esophageal reflux [facility] Diagnosis Family history of colon cancer- Primary Family history of malignant neoplasm of gastrointestinal tract [facility] Diagnosis Essential hypertension Unspecified essential hypertension [facility]* Diagnosis Primary osteoarthritis of both knees- Primary Primary localized osteoarthrosis, lower leg Gastroesophageal reflux disease, unspecified whether esophagitis present Primary osteoarthritis of left hip Primary localized osteoarthrosis, pelvic region and thigh [facility]* Diagnosis Hypertriglyceridemia Pure hyperglyceridemia documented in this encounter [facility] note* Diagnosis Routine medical exam- Primary Routine general medical examination at a health care facility Gastroesophageal reflux disease without esophagitis Esophageal reflux Pain in left hip Pain in joint, pelvic region and thigh Essential hypertension Unspecified essential hypertension Hypertriglyceridemia Pure hyperglyceridemia Obesity, Class III, BMI 40-49.9 (morbid obesity) (HCC) Morbid obesity [facility]* Diagnosis Pain in both knees, unspecified chronicity documented [facility]* Diagnosis Essential hypertension- Primary Unspecified essential hypertension Gastroesophageal reflux disease without esophagitis Esophageal reflux Hypertriglyceridemia Pure hyperglyceridemia Vitamin D deficiency Unspecified vitamin D deficiency Primary osteoarthritis of both knees Primary localized osteoarthrosis, lower leg [facility]* Diagnosis Primary osteoarthritis of both knees- Primary Primary localized osteoarthrosis, lower leg [facility] Diagnosis Primary osteoarthritis of both knees- Primary Primary localized osteoarthrosis, lower leg [facility]* Diagnosis Primary osteoarthritis of right hip- Primary Primary localized osteoarthrosis, pelvic region and thigh Primary osteoarthritis of both knees Primary localized osteoarthrosis, lower leg [facility]* Diagnosis Primary osteoarthritis of right hip- Primary Primary localized osteoarthrosis, pelvic region and thigh [facility]* Diagnosis Onset Date Resolution Status Osteoarthritis of right hip acute [facility] Work Phone: Evaluation note* Diagnosis Hypertriglyceridemia Pure hyperglyceridemia [facility]* Diagnosis Routine medical exam- Primary Routine [...] condition of skin documented [facility]* Diagnosis Elevated ferritin- Primary Other abnormal blood chemistry Primary osteoarthritis of both knees Primary localized osteoarthrosis, lower leg Primary osteoarthritis of both hips Primary localized osteoarthrosis, pelvic region and thigh [facility]* Diagnosis Primary osteoarthritis of both knees- Primary Primary localized osteoarthrosis, lower leg Primary osteoarthritis of both hips Primary localized osteoarthrosis, pelvic region and thigh documented [facility]* Diagnosis Establishing care with new doctor, [...] region and thigh documented [facility]* Diagnosis Establishing care with new doctor, [...] esophagitis Esophageal reflux documented [facility]* Diagnosis Establishing care with new doctor, [...] Tenderness of back documented in this encounter [facility]* Diagnosis Establishing care with new doctor, [...] Unspecified essential hypertension documented [facility]* Diagnosis Establishing care with new doctor, [...] region and thigh documented [facility]* Diagnosis Establishing care with new doctor, [...] multiple sites (HCC) [facility] Diagnosis Establishing care with new doctor, [...] Hypertriglyceridemia Pure hyperglyceridemia documented in this encounter [facility] for referral (narrative)* Outpatient Procedure (Routine) - Pending Review Specialty Diagnoses / Procedures Referred By Chris us Referred To Contact [facility] Diagnoses Special screening for malignant neoplasms, colon Procedures COLONOSCOPY SCREENING COLONOSCOPY FLX DX W/COLLJ SPEC WHEN PFRMD Noemi Fung APRN.CNP [id number] [place] [address] [facility] [address] [address] Referral ID Status Reason Start Date Expiration Date Visits Requested Visits Authorized [id number] Pending Review Auto-Generat ed Referral 01/15/2022 01/15/2023 1 1 [facility] for referral (narrative)* Outpatient Procedure (Routine) - Closed Specialty Diagnoses / Procedures Referred By Chris us Referred To Contact [facility] Diagnoses Family history of colon cancer Procedures COLONOSCOPY SCREENING COLONOSCOPY FLX DX W/COLLJ SPEC WHEN PFRMD Hailey Hodges PA-C [address] [facility] [place] [address] [facility] [address] [place] [address] [place] [address] Referral ID Status Reason Start Date Expiration Date V isits Requested Visits Authorized [id number] Closed Auto-Generate d Referral 03/30/2022 03/30/2023 1 1 [facility] for referral (narrative)* Diagnostic Procedure Only (Routine) - Closed Specialty Diagnoses / Procedures Referred By Contac t Referred To Contact XR IMAGING Diagnoses Pain in both knees, unspecified chronicity Procedures XR KNEE GENERAL 4V AP BOTH/PA BOTH/LAT/MERC BILATERAL RADIOLOGIC EXAM KNEE COMPLETE 4/MORE VIEWS Satish Rosas MD [address] [place] [address] [place] [address] Referral ID Status Reason Start Date Expiration Date V isits Requested Visits Authorized [id number] Closed Auto-Generate d Referral 02/27/2023 03/28/2024 1 1 [facility] for referral (narrative)No reason for referral information availableWJ.W. [facility] Work Phone: [facility] for visit Narrative* Diagnostic Procedure Only (Routine) - Closed Specialty Diagnoses / Procedures Referred By Contac t Referred To Contact XR IMAGING Diagnoses Pain in both knees, unspecified chronicity Procedures XR KNEE GENERAL 4V AP BOTH/PA BOTH/LAT/MERC BILATERAL RADIOLOGIC EXAM KNEE COMPLETE 4/MORE VIEWS Satish Rosas MD [address] [place] [address] [place] [address] Referral ID Status Reason Start Date Expiration Date V isits Requested Visits Authorized [id number] Closed Auto-Generate d Referral 02/27/2023 03/28/2024 1 1 [facility] Advance Directives No Advanced Directives Records FoundDocuments on File Type Date Recorded 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 No December 15, 2024 3:01pm Advance Directive Response Recorded Date/ Time Living Will No December 15, 2024 3:01pm Do you have a Healthcare Power of Mower Operator? No December 15, 2024 3:01pm Do you have a Healthcare Power of Mower Operator? No February 10, 2025 9:12am Advance Directive Response Recorded Date/ Time Do you have a Healthcare Power of Mower Operator? No February 10, 2025 9:12am Reason for Referral Specialty Diagnoses / Procedures Referred By Chris us Referred To Contact General Surgery Diagnoses Pilonidal cyst Procedures CONSULT TO GENERAL SURGERY OFFICE/OUTPATIENT [facility] 60-74 MINUTES Vinicius Gould APRN.DIRECTORY ASSISTANCE OPERATOR, DNP [address] [place] [address] Referral ID Status Reason Start Date Expiration Date Visits Requested Visits Authorized [id number] Pending Review PCP Requested Referral 02/26/2022 02/23/2023 1 1 Specialty Diagnoses / Procedures Referred By Chris us Referred To Contact Rheumatology Diagnoses Primary osteoarthritis of both knees Primary osteoarthritis of both hips Procedures CONSULT TO RHEUM/IMMUN DISEASE Vinh Aguilar MD [address] [place] [address] Referral ID Status Reason Start Date Expiration Date Visits Requested Visits Authorized [id number] Ref Not Required PCP Requested Referral 05/21/2024 [...] osteoarthritis of knee May 10, 2025 8:52am Chief Complaint Admit Date R ANA MARIA RX HERE April 01, 2025 11:0 0am right hip April 12, 2025 8:04 am Room 3 April 12, 2025 8:19 am BL KNEES April 26, 2025 8:08 am BL KNEE May 03, 2025 8:36 am BL KNEE May 10, 2025 8:52 am PAIN- COPY PCP July 07, 2025 3:55pm Reason for Visit Admit Date Orthopedic aftercare April 12, 2025 8:0 4am [...] or prosecute any alcohol or drug abuse patient.[facility] the event this information is protected by the Federal Confidentiality of Alcohol and Drug Abuse Patient Records regulations: The Federal rules restrict any use of the information to criminally investigate or prosecute any alcohol or drug abuse patient.[facility] HospitalIn the event this information is protected by the Federal Confidentiality of Alcohol and Drug Abuse Patient Records regulations: The Federal rules restrict any use of the information to criminally investigate or prosecute any alcohol or drug abuse patient.[facility] HospitalIn the event this information is protected by the Federal Confidentiality of Alcohol and Drug Abuse Patient Records regulations: The Federal rules restrict any use of the information to criminally investigate or prosecute any alcohol or drug abuse patient.[facility] HospitalIn the event this information is protected by the Federal Confidentiality of Alcohol and Drug Abuse Patient Records regulations: The Federal rules restrict any use of the information to criminally investigate or prosecute any alcohol or drug abuse patient.[facility] HospitalIn the event this information is protected by the Federal Confidentiality of Alcohol and Drug Abuse Patient Records regulations: The Federal rules restrict any use of the information to criminally investigate or prosecute any alcohol or drug abuse patient.[facility] HospitalIn the event this information is protected by the Federal Confidentiality of Alcohol and Drug Abuse Patient Records regulations: The Federal rules restrict any use of the information to criminally investigate or prosecute any alcohol or drug abuse patient.[facility] HospitalIn the event this information is protected by the Federal Confidentiality of Alcohol and Drug Abuse Patient Records regulations: The Federal rules restrict any use of the information to criminally investigate or prosecute any alcohol or drug abuse patient.[facility] HospitalIn the event this information is protected by the Federal Confidentiality of Alcohol and Drug Abuse Patient Records regulations: The Federal rules restrict any use of the information to criminally investigate or prosecute any alcohol or drug abuse patient.[facility] HospitalIn the event this information is protected by the Federal Confidentiality of Alcohol and Drug Abuse Patient Records regulations: The Federal rules restrict any use of the information to criminally investigate or prosecute any alcohol or drug abuse patient.[facility] HospitalIn the event this information is protected by the Federal Confidentiality of Alcohol and Drug Abuse Patient Records regulations: The Federal rules restrict any use of the information to criminally investigate or prosecute any alcohol or drug abuse patient.[facility] HospitalIn the event this information is protected by the Federal Confidentiality of Alcohol and Drug Abuse Patient Records regulations: The Federal rules restrict any use of the information to criminally investigate or prosecute any alcohol or drug abuse patient.[facility] HospitalIn the event this information is protected by the Federal Confidentiality of Alcohol and Drug Abuse Patient Records regulations: The Federal rules restrict any use of the information to criminally investigate or prosecute any alcohol or drug abuse patient.[facility] HospitalIn the event this information is protected by the Federal Confidentiality of Alcohol and Drug Abuse Patient Records regulations: The Federal rules restrict any use of the information to criminally investigate or prosecute any alcohol or drug abuse patient.[facility] HospitalIn the event this information is protected by the Federal Confidentiality of Alcohol and Drug Abuse Patient Records regulations: The Federal rules restrict any use of the information to criminally investigate or prosecute any alcohol or drug abuse patient.[facility] HospitalIn the event this information is protected by the Federal Confidentiality of Alcohol and Drug Abuse Patient Records regulations: The Federal rules restrict any use of the information to criminally investigate or prosecute any alcohol or drug abuse patient.[facility] HospitalIn the event this information is protected by the Federal Confidentiality of Alcohol and Drug Abuse Patient Records regulations: The Federal rules restrict any use of the information to criminally investigate or prosecute any alcohol or drug abuse patient.[facility] HospitalIn the event this information is protected by the Federal Confidentiality of Alcohol and Drug Abuse Patient Records regulations: The Federal rules restrict any use of the information to criminally investigate or prosecute any alcohol or drug abuse patient.[facility] HospitalIn the event this information is protected by the Federal Confidentiality of Alcohol and Drug Abuse Patient Records regulations: The Federal rules restrict any use of the information to criminally investigate or prosecute any alcohol or drug abuse patient.[facility] HospitalIn the event this information is protected by the Federal Confidentiality of Alcohol and Drug Abuse Patient Records regulations: The Federal rules restrict any use of the information to criminally investigate or prosecute any alcohol or drug abuse patient.[facility] HospitalIn the event this information is protected by the Federal Confidentiality of Alcohol and Drug Abuse Patient Records regulations: The Federal rules restrict any use of the information to criminally investigate or prosecute any alcohol or drug abuse patient.[facility] HospitalIn the event this information is protected by the Federal Confidentiality of Alcohol and Drug Abuse Patient Records regulations: The Federal rules restrict any use of the information to criminally investigate or prosecute any alcohol or drug abuse patient.[facility] HospitalIn the event this information is protected by the Federal Confidentiality of Alcohol and Drug Abuse Patient Records regulations: The Federal rules restrict any use of the information to criminally investigate or prosecute any alcohol or drug abuse patient.[facility] HospitalIn the event this information is protected by the Federal Confidentiality of Alcohol and Drug Abuse Patient Records regulations: The Federal rules restrict any use of the information to criminally investigate or prosecute any alcohol or drug abuse patient.[facility] HospitalIn the event this information is protected by the Federal Confidentiality of Alcohol and Drug Abuse Patient Records regulations: The Federal rules restrict any use of the information to criminally investigate or prosecute any alcohol or drug abuse patient.[facility] HospitalIn the event this information is protected by the Federal Confidentiality of Alcohol and Drug Abuse Patient Records regulations: The Federal rules restrict any use of the information to criminally investigate or prosecute any alcohol or drug abuse patient.[facility] HospitalIn the event this information is protected by the Federal Confidentiality of Alcohol and Drug Abuse Patient Records regulations: The Federal rules restrict any use of the information to criminally investigate or prosecute any alcohol or drug abuse patient.[facility] HospitalIn the event this information is protected by the Federal Confidentiality of Alcohol and Drug Abuse Patient Records regulations: The Federal rules restrict any use of the information to criminally investigate or prosecute any alcohol or drug abuse patient.[facility] HospitalIn the event this information is protected by the Federal Confidentiality of Alcohol and Drug Abuse Patient Records regulations: The Federal rules restrict any use of the information to criminally investigate or prosecute any alcohol or drug abuse patient.[facility] HospitalIn the event this information is protected by the Federal Confidentiality of Alcohol and Drug Abuse Patient Records regulations: The Federal rules restrict any use of the information to criminally investigate or prosecute any alcohol or drug abuse patient.[facility] HospitalIn the event this information is protected by the Federal Confidentiality of Alcohol and Drug Abuse Patient Records regulations: The Federal rules restrict any use of the information to criminally investigate or prosecute any alcohol or drug abuse patient.[facility] HospitalIn the event this information is protected by the Federal Confidentiality of Alcohol and Drug Abuse Patient Records regulations: The Federal rules restrict any use of the information to criminally investigate or prosecute any alcohol or drug abuse patient.[facility] HospitalIn the event this information is protected by the Federal Confidentiality of Alcohol and Drug Abuse Patient Records regulations: The Federal rules restrict any use of the information to criminally investigate or prosecute any alcohol or drug abuse patient.[facility] HospitalIn the event this information is protected by the Federal Confidentiality of Alcohol and Drug Abuse Patient Records regulations: The Federal rules restrict any use of the information to criminally investigate or prosecute any alcohol or drug abuse patient.[facility] HospitalIn the event this information is protected by the Federal Confidentiality of Alcohol and Drug Abuse Patient Records regulations: The Federal rules restrict any use of the information to criminally investigate or prosecute any alcohol or drug abuse patient.[facility] HospitalIn the event this information is protected by the Federal Confidentiality of Alcohol and Drug Abuse Patient Records regulations: The Federal rules restrict any use of the information to criminally investigate or prosecute any alcohol or drug abuse patient.[facility] HospitalIn the event this information is protected by the Federal Confidentiality of Alcohol and Drug Abuse Patient Records regulations: The Federal rules restrict any use of the information to criminally investigate or prosecute any alcohol or drug abuse patient.[facility] HospitalIn the event this information is protected by the Federal Confidentiality of Alcohol and Drug Abuse Patient Records regulations: The Federal rules restrict any use of the information to criminally investigate or prosecute any alcohol or drug abuse patient.[facility] HospitalIn the event this information is protected by the Federal Confidentiality of Alcohol and Drug Abuse Patient Records regulations: The Federal rules restrict any use of the information to criminally investigate or prosecute any alcohol or drug abuse patient.[facility] HospitalIn the event this information is protected by the Federal Confidentiality of Alcohol and Drug Abuse Patient Records regulations: The Federal rules restrict any use of the information to criminally investigate or prosecute any alcohol or drug abuse patient.[facility] HospitalIn the event this information is protected by the Federal Confidentiality of Alcohol and Drug Abuse Patient Records regulations: The Federal rules restrict any use of the information to criminally investigate or prosecute any alcohol or drug abuse patient.[facility] Reason for Visit (unrecogniz ed section and content) Reason Comments Established Patient Bilateral knee injec tions Euflexxa #3 Established Patient Specialty Diagnoses / Procedures Referred By Chris t Referred To Contact ORTHOPAEDIC SURGERY Diagnoses Bilateral primary osteoarthritis of knee Procedures EUFLEXXA INJ PER DOSE EUFLEXXA OR PAYOR PREFERRED Gilda Rutherford PA-C [address] [place] [address] [facility] [address] [place] [address] Referral ID Status Reason Start Date Expiration Date Visits Re quested Visits Authorized [id number] Closed 10/31/2023 04/30/2024 3 3 Reason Comments Medication Problem Reason Onset Date Comments Refill Request 01/15/2022 Reason Comments Colonoscopy order Reason Comments Rectal Bleeding Reason Comments Outpatient Colonoscopy Reason Comments Consult pilonidal cyst Specialty Diagnoses / Procedures Referred By Chris us Referred To Contact General Surgery Diagnoses Pilonidal cyst Procedures CONSULT TO GENERAL SURGERY OFFICE/OUTPATIENT NEW HIGH MDM 60-74 MINUTES Vinicius Gould APRN.DIRECTORY ASSISTANCE OPERATOR, DNP [address] [place] [address] Referral ID Status Reason Start Date Expiration Date Visits Requested Visits Authorized [id number] Pending Review PCP Requested Referral 02/26/2022 02/23/2023 [...] Expiration Date V isits Requested Visits Authorized [id number] Authorized 10/31/2023 04/30/2024 3 3 Reason Comments [...] Care Teams (unrecognized sec tion and content) Dock Operator Relationship Specialty Start Date End Date Vinh Aguilar MD [address] [place] [address] PCP - General Internal Medicine 08/22/21 Dock Operator Relationship Specialty Start Date End Date Vinh Aguilar MD [address] [place] [address] PCP - General Internal Medicine 08/22/21 Dock Operator Relationship Specialty Start Date End Date Vinh Aguilar MD [address] [place] [address] PCP - General Internal Medicine 08/22/21 Dock Operator Relationship Specialty Start Date End Date Vinh Aguilar MD [address] [place] [address] PCP - General Internal Medicine 08/22/21 Dock Operator Relationship Specialty Start Date End Date Vinh Aguilar MD [address] [place] [address] PCP - General Internal Medicine 08/22/21 Dock Operator Relationship Specialty Start Date End Date Vinh Aguilar MD [address] [place] [address] PCP - General Internal Medicine 08/22/21 Dock Operator Relationship Specialty Start Date End Date Vinh Aguilar MD [address] [facility] [place] [address] PCP - General Internal Medicine 08/22/21 Dock Operator Relationship Specialty Start Date End Date Vinh Aguilar MD [address] [facility] [place] [address] PCP - General Internal Medicine 08/22/21 Dock Operator Relationship Specialty Start Date End Date Vinh Aguilar MD [address] [facility] [place] [address] PCP - General Internal Medicine 08/22/21 Dock Operator Relationship Specialty Start Date End Date Vinh Aguilar MD [address] [facility] [place] [address] PCP - General Internal Medicine 08/22/21 Dock Operator Relationship Specialty Start Date End Date Vinh Aguilar MD [address] [facility] [place] [address] PCP - General Internal Medicine 08/22/21 Dock Operator Relationship Specialty Start Date End Date Vinh Aguilar MD [address] [facility] [place] [address] PCP - General Internal Medicine 08/22/21 Dock Operator Relationship Specialty Start Date End Date Vinh Aguilar MD [address] [facility] [place] [address] PCP - General Internal Medicine 08/22/21 Dock Operator Relationship Specialty Start Date End Date Vinh Aguilar MD [address] [facility] [place] [address] PCP - General Internal Medicine 08/22/21 Dock Operator Relationship Specialty Start Date End Date Vinh Aguilar MD [address] [place] [address] PCP - General Internal Medicine 08/22/21 Dock Operator Relationship Specialty Start Date End Date Vinh Aguilar MD [address] [facility] [place] [address] PCP - General Internal Medicine 08/22/21 Dock Operator Relationship Specialty Start Date End Date Vinh Aguilar MD [address] [facility] [place] [address] PCP - General Internal Medicine 08/22/21 Dock Operator Relationship Specialty Start Date End Date Vinh Aguilar MD [address] [facility] [place] [address] PCP - General Internal Medicine 08/22/21 Dock Operator Relationship Specialty Start Date End Date Vinh Aguilar MD [address] [facility] [place] [address] PCP - General Internal Medicine 08/22/21 Dock Operator Relationship Specialty Start Date End Date Vinh Aguilar MD [address] [facility] [place] [address] PCP - General Internal Medicine 08/22/21 Dock Operator Relationship Specialty Start Date End Date Vinh Aguilar MD [address] [facility] [place] [address] PCP - General Internal Medicine 08/22/21 Dock Operator Relationship Specialty Start Date End Date Vinh Aguilar MD [address] [facility] [place] [address] PCP - General Internal Medicine 08/22/21 Team Status: Active Member Role Status Dates Dr. Celia Robbins MD Family Provider Active Dr. Vinh Aguilar MD Primary Care Provider Active Team Status: Active Member Role Status Dates WALDEMAR Christopher Referring Provider, Other Provide r Active Dr. Vinh Aguilar MD Primary Care Provider Active Kasey Rick , HOOK PULLER-C Attending Provider Active Team Status: Inactive Member Role Status Dates WALDEMAR Christopher Attending Provider, Referring Pro vider Active Dr. Vinh Aguilar MD Primary Care Provider Active Dock Operator Relationship Specialty Start Date End Date Vinh Aguilar MD [address] [place] [address] PCP - General Internal Medicine 08/22/21 Dock Operator Relationship Specialty Start Date End Date Vinh Aguilar MD [address] [place] [address] PCP - General Internal Medicine 08/22/21 Dock Operator Relationship Specialty Start Date End Date Vinh Aguilar MD [address] [place] [address] PCP - General Internal Medicine 08/22/21 Dock Operator Relationship Specialty Start Date End Date Vinh Aguilar MD [address] [place] [address] PCP - General Internal Medicine 08/22/21 Dock Operator Relationship Specialty Start Date End Date Vinh Aguilar MD [address] [place], [place] [address] PCP - General Internal Medicine 08/22/21 Dock Operator Relationship Specialty Start Date End Date Celia Robbins MD [address] [place] [address] PCP - General Internal Medicine 06/21/15 08/21/21 Dock Operator Relationship Specialty Start Date End Date Vinh Aguilar MD [address] [place] [address] PCP - General Internal Medicine 08/22/21 Noemi Beltran, PRESS SUPERVISOR.DIRECTORY ASSISTANCE OPERATOR [address] [place] [address] Lithograph Printer Internal Medicine 09/21/24 Dock Operator Relationship Specialty Start Date End Date Vinh Aguilar MD [address] [place] [address] PCP - General Internal Medicine 08/22/21 Noemi Beltran, PRESS SUPERVISOR.DIRECTORY ASSISTANCE OPERATOR [address] [place] [address] Lithograph Printer Internal Medicine 09/21/24 Dock Operator Relationship Specialty Start Date End Date Vinh Aguilar MD [address] [place] [address] PCP - General Internal Medicine 08/22/21 Noemi Beltran, PRESS SUPERVISOR.DIRECTORY ASSISTANCE OPERATOR [address] [place] [address] Lithograph Printer Internal Medicine 09/21/24 Dock Operator Relationship Specialty Start Date End Date Vinh Aguilar MD [address] [place] [address] PCP - General Internal Medicine 08/22/21 Noemi Beltran, PRESS SUPERVISOR.DIRECTORY ASSISTANCE OPERATOR [address] [place] [address] [facility] Internal Medicine 09/21/24 Team Status: Active Member [...] Active Start: February 11, 2025 Dr. Too aLtham DO Attending Provider Active Start: February 11, [...] March 09, 2025 Dr. Too Latham DO Attending Provider Active Start: March 09, [...] Inactive Member Role/Relationship Status Dates Dr. Vinh Aguilra MD Primary Care Provider Active Start: April [...] 2025 End: April 12, 2025 Dr. Vinh Augilar MD Referring Provider Active Start: April 12, 2025 End: April 12, 2025 Dr. Too Latham DO Attending Provider Active Start: April 12, 2025 End: April 12, 2025 Dock Operator Relationship Specialty Start Date End Date Vinh Aguilar MD [address] [place], [place] [address] PCP - General Internal Medicine 08/22/21 Noemi Beltran, PRESS SUPERVISOR.DIRECTORY ASSISTANCE OPERATOR [address] [place], [place] [id number] Lithograph Printer Internal Medicine 09/21/24 Team Status: Inactive Member [...] Inactive Member Role/Relationship Status Dates Dr. Vinh Aguialr MD Primary Care Provider Active Start: February [...] Active Start: February 23, 2025 Dr. Too Lahtam DO Other Provider Active St art: February [...] Inactive Member Role/Relationship Status Dates Dr. Vinh Augilar MD Primary Care Provider Active Start: May [...] May 10, 2025 End: May 10, 2025 Team Status: Active Member Role/Relationship Status Dates Dr. Vinh Aguilar MD Primary care physician Activ e Team Status: Inactive Member Role/Relationship Status Dates Dr. Vinh Aguilar MD Primary care physician Activ e Start: April 01, 2025 End: April 01, 2025 Dr. Too Latham DO Attending physician Active Start: April 01, 2025 End: April 01, 2025 Dr. Too Latham DO Referring Provider Active Start: April 01, 2025 End: April 01, 2025 Team Status: Inactive Member Role/Relationship Status Dates Dr. Vinh Aguilar MD Primary care physician Activ e Start: April 05, 2025 End: April 05, 2025 Dr. Mari Prescott MD Attending physician Active Start: April 05, 2025 End: April 05, 2025 Dr. Mari Prescott MD Referring Provider Active Start: April 05, 2025 End: April 05, 2025 Team Status: Inactive Member Role/Relationship Status Dates Dr. Vinh Aguilar MD Primary care physician Activ e Start: April 12, 2025 End: April 12, 2025 Dr. Vinh Aguilar MD Referring Provider Active Start: April 12, 2025 End: April 12, 2025 Dr. Too Latham DO Attending physician Active Start: April 12, 2025 End: April 12, 2025 Team Status: Inactive Member Role/Relationship Status Dates Dr. Vinh Aguilar MD Primary care physician Activ e Start: April 12, 2025 End: April 12, 2025 Dr. Doroteo Villanueva MD Attending physician Active Start: April 12, 2025 End: April 12, 2025 Team Status: Inactive Member Role/Relationship Status Dates Dr. Vinh Aguilar MD Primary care physician Activ e Start: April 26, 2025 End: April 26, 2025 Dr. Vinh Aguilar MD Referring Provider Active Start: April 26, 2025 End: April 26, 2025 Dr. Too Latham DO Attending physician Active Start: April 26, 2025 End: April 26, 2025 Team Status: Inactive Member Role/Relationship Status Dates Dr. Vinh Aguilar MD Primary care physician Activ e Start: May 03, 2025 End: May 03, 2025 Dr. Vinh Aguliar MD Referring Provider Active Start: May 03, 2025 End: May 03, 2025 Dr. Too Latham DO Attending physician Active Start: May 03, 2025 End: May 03, 2025 Team Status: Inactive Member Role/Relationship Status Dates Dr. Vinh Aguilar MD Primary care physician Activ e Start: May 10, 2025 End: May 10, 2025 Dr. Vinh Aguilar MD Referring Provider Active Start: May 10, 2025 End: May 10, 2025 Dr. Too Latham DO Attending physician Active Start: May 10, 2025 End: May 10, 2025 Team Status: Inactive Member Role/Relationship Status Dates Dr. Vinh Aguilar MD Primary care physician Activ e Start: July 07, 2025 End: July 07, 2025 Dr. Mari Prescott MD Attending physician Active Start: July 07, 2025 End: July 07, 2025 Dr. Mari Prescott MD Referring Provider Active Start: July 07, 2025 End: July 07, 2025 Inactive Administered Medications - up to [...] sectionGoals may be documented in an alternate sectionGoals may be documented in an alternate section (unrecognized sect ion and content) No Status Records FoundNo Status Records Found INFORMATION SOURCE (unrecogn ized section and content) DATE CREATED AUTHOR 07/19/2025 [facility] DATE CREATED AUTHOR AUTHOR'S ORGANIZ ATION 08/27/2025 [facility] FOR RECORDS PERTAINING TO PATIENTS WHO ARE [...] BE BASED ON THE PRIMARY CLINICAL RECORDS. [employer] provides no warranty or guarantee of the accuracy or completeness of information in this document.
[2025-09-24 17:36] LABS: Hematocrit 43.6 % (40-54); Hemoglobin 15.5 g/dL (13.0-16.5); Immature Granulocytes Count 0.020 X10^3/uL (0.0-0.0); Mean Corp Hgb Conc 35.6 g/dL (32-36); Mean Corpuscular Volume 98.0 fL (80-94); Mean Platelet Vol. 10.5 fl (6.2-12.0); NRBC Flagged by Analyzer 0 % (0-5); Platelet Count 253 K/mm3 (150-450); RBC Distribution Width CV 13.2 % (11.6-14.6); RBC Distribution Width SD 46.5 fl (35.1-43.9); Red Blood Count 4.45 M/mm3 (4.6-6.2); White Blood Count 7.4 K/mm3 (4.4-11.0)
[2025-09-24 17:52] LABS: AST(SGOT) 21 U/L (<=37); Alanine Aminotransfer ALT/SGPT 29 U/L (<=46); Albumin, Serum 4.7 g/dL (3.4-4.8); Alkaline Phosphatase 65 U/L (40-129); Anion Gap 13 (5-15); BUN 19 mg/dL (4-19); BUN/Creat Ratio 23.5 RATIO (10-20); Calcium,Total 9.4 mg/dL (7.6-11.0); Carbon Dioxide 21.2 mmol/L (21.0-32.0); Chloride 105 mmol/L (98-108); Globulin 2.3 g/dL (2.2-4.2); Glucose 89 mg/dL (70-99); Potassium 4.0 mmol/L (3.3-5.1)
== END | disposition home or self-care (01) ==
LOC: MTLAB 15:59
PROVIDERS: PCP Internal Medicine; Referring Provider Internal Medicine Rheumatology; Visit Provider Internal Medicine Rheumatology
DX: M06.4 Inflammatory polyarthropathy (principal); Z79.899 Other long term (current) drug therapy
CPT/HCPCS: 36415; 80053; 85025